=== PATIENT | male | born 1950 | race Caucasian/White ===

== ENCOUNTER 2023-04-30 18:07 | Outpatient (RCR) | payer MEDICARE, SELFPAY | END 2023-05-24 23:59 | disposition home or self-care (01) | LOC: MM 18:07 | PROVIDERS: PCP Internal Medicine; Visit Provider Internal Medicine | DX: Z51.81 Encounter for therapeutic drug level monitoring (principal); Z79.01 Long term (current) use of anticoagulants; I82.402 Acute embolism and thrombosis of unspecified deep veins of left lower extremity ==

== ENCOUNTER 2023-05-30 10:36 | Outpatient (RCR) | payer MEDICARE, SELFPAY | END 2023-06-24 16:54 | disposition home or self-care (01) | LOC: MM 10:36 | PROVIDERS: PCP Internal Medicine; Visit Provider Internal Medicine | DX: Z51.81 Encounter for therapeutic drug level monitoring (principal); Z79.01 Long term (current) use of anticoagulants; I82.402 Acute embolism and thrombosis of unspecified deep veins of left lower extremity | CPT/HCPCS: 85610; G0463 ==

== ENCOUNTER 2023-06-25 09:11 | Outpatient (RCR) | payer MEDICARE, SELFPAY | END 2023-07-25 17:29 | disposition home or self-care (01) | LOC: MM 09:11 | PROVIDERS: PCP Internal Medicine; Visit Provider Internal Medicine | DX: Z51.81 Encounter for therapeutic drug level monitoring (principal); Z79.01 Long term (current) use of anticoagulants; I82.402 Acute embolism and thrombosis of unspecified deep veins of left lower extremity ==

== ENCOUNTER 2023-07-07 20:17 | Emergency (ER) | payer MEDICARE, SELFPAY ==
[2023-07-07 20:20] VITALS: BP 127/99; PULSE 146; RESP 22; TEMP 36.6; O2SAT 92; BMI 37.5
--- NOTE | 2023-07-07 20:47 | ED.MALEGU1 ---
HPI - Male Genitourinary General Chief complaint: Urogenital-Male Stated complaint: URINARY ISSUES Time Seen by Provider: 07/07/23 20:21 Source: patient Mode of arrival: walk-in History of Present Illness HPI Narrative: The patient came to us with a history of urine retention since 9 AM this morning he denies any history of fever chills or any other concerns, he also mentioned that had no history of prostate problem before and he mentioned that he usually have a very weak stream No other complaints Related Data Home Medications Medication Instructions Recorded Confirmed warfarin 5 mg tablet 5 mg PO DAILY 07/07/23 07/07/23 Previous Rx's Medication Instructions Recorded tamsulosin 0.4 mg capsule (Flomax) 0.4 mg PO DAILY #20 caps 07/07/23 Allergies Allergy/AdvReac Type Severity Reaction Status Date / Time No Known Drug Allergies Allergy Verified 07/07/23 20:20 Review of Systems ROS Status of ROS 10 or more systems reviewed and unremarkable except as noted in history and below Exam Narrative Exam Narrative: Nurses notes and vital signs reviewed and patient is not hypoxic. General: Well-appearing and in no apparent distress. Skin: Warm, dry, no pallor noted. No rash. Head: Normocephalic, atraumatic. Neck: Supple, non-tender. Eye: Pupils are equal, round and EOMI. No scleral icterus. Ears, Nose, Mouth, and Throat: TM are clear, no nasal mucosal hypertrophy. Oral mucosa is moist, no posterior oropharynx erythema, uvula is mid-line Cardiovascular: Regular Rate and Rhythm without murmur, gallop or rub. Respiratory: No accessory muscle use or respiratory distress. Lungs are clear to auscultation, no wheezing, rales or rhonchi Chest Wall: no tenderness Back: No midline thoracic or lumbar vertebral tenderness. No CVA tenderness Musculoskeletal: normal ROM, no calf or popliteal tenderness, no lower extremity edema/swelling GI: Abdomen is soft, non-distended. Normal bowel sounds. No masses appreciated. No tenderness to palpation. No rebound, guarding, or rigidity noted. Neurological: A&O x4. No cranial nerve dysfunction observed. No truncal ataxia. Moves all extremities. Sensation intact. Psychiatric: Cooperative and interactive. Normal mood and affect. Constitutional Vital Signs, click to edit/add: Last Vital Signs Temp 97.9 F 07/07/23 20:20 Pulse 146 H 07/07/23 20:20 Resp 22 07/07/23 20:20 BP 127/99 H 07/07/23 20:20 Pulse Ox 92 L 07/07/23 20:20 O2 Del Method Room Air 07/07/23 20:20 Course Vital Signs Vital signs: Vital Signs Temperature 97.9 F 07/07/23 20:20 Pulse Rate 146 H 07/07/23 20:20 Respiratory Rate 22 07/07/23 20:20 Blood Pressure 127/99 H 07/07/23 20:20 Pulse Oximetry 92 L 07/07/23 20:20 Oxygen Delivery Method Room Air 07/07/23 20:20 Temperature 97.9 F 07/07/23 20:20 Pulse Rate 146 H 07/07/23 20:20 Respiratory Rate 07/07/23 20:20 Blood Pressure 127/99 H 07/07/23 20:20 Pulse Oximetry 92 L 07/07/23 20:20 Oxygen Delivery Method Room Air 07/07/23 20:20 MDM - Male Genitourinary MDM Narrative Medical decision making narrative: Upon presentation the patient was distressed because of urine retention but after putting a Singer catheter he almost had 1400 cc of urine out there and did not show any signs of infection His tachycardia resolved his heart rate was 108 after his Singer catheter was placed The patient blood work-up did show some acute kidney injury that is mild he was instructed about the importance of follow-up with urology within the week he also was discharged home with a Singer catheter in addition to instruction to come back in case of any fever chills or any abdominal pain There was no urine infection but the patient was started on Flomax he was instructed about the importance of follow-up with urology The patient is to follow up with primary care physician in next 2-3 days or to return to the emergency department should any of the signs or symptoms worsen or new symptoms develop. The patient agrees with the following Diagnosis and Treatment plan and the patient will be discharged home. Lab Data Labs: Lab Results 07/07/23 07/07/23 Range/Units 20:36 20:45 WBC 11.9 H (4.0-11.0) 10^3/uL RBC 5.72 (4.70-6.10) 10^6/uL Hgb 14.9 (14.0-18.0) g/dL Hct 48.0 (42.0-54.0) % MCV 83.9 (80.0-94.0) fL MCH 26.0 (25.9-34.0) pg MCHC 31.0 (29.9-35.2) g/dL RDW 15.6 H (11.0-15.0) % Plt Count 284 (150-450) 10^3/uL MPV 9.6 (9.5-13.5) fL Neut % (Auto) 85.4 H (43.0-75.0) % Lymph % (Auto) 7.7 L (20.5-60.0) % [place] % (Auto) 5.7 (1.7-12.0) % Eos % (Auto) 0.3 L (0.9-7.0) % Baso % (Auto) 0.5 (0.2-2.0) % Neut # (Auto) 10.2 H (1.4-6.5) 10^3/uL Lymph # (Auto) 0.9 L (1.2-3.8) 10^3/uL [place] # (Auto) 0.7 (0.3-0.8) 10^3/uL Eos # (Auto) 0.0 (0.0-0.7) 10^3/uL Baso # (Auto) 0.1 (0.0-0.1) 10^3/uL Abs Immat Gran (auto) 0.05 H (0.00-0.03) 10^3/uL Imm/Tot Granulo (auto) 0.4 (0.0-0.5) % Sodium 132 L (136-145) mmol/L Potassium 3.7 (3.5-5.1) mmol/L Chloride 99 (98-107) mmol/L Carbon Dioxide 24.1 (21.0-32.0) mmol/L Anion Gap 12.6 BUN 20.0 H (7.0-18.0) mg/dL Creatinine 1.36 H (0.70-1.30) mg/dL Est GFR ( Amer) >60 (>=60) Est GFR (Non-Af Amer) 52 L (>=60) BUN/Creatinine Ratio 14.7 Glucose 201 H (74-106) mg/dL Calcium 9.0 (8.5-10.1) mg/dL Total Bilirubin 0.4 (0.2-1.0) mg/dL AST 17 (15-37) U/L ALT 19 (16-63) U/L Alkaline Phosphatase 99 (46-116) U/L Total Protein 7.5 (6.4-8.2) g/dL Albumin 3.4 (3.4-5.0) g/dL Globulin 4.1 g/dL Albumin/Globulin Ratio 0.8 Urine Color Lt. yellow (YELLOW) Urine Clarity Clear (CLEAR) Urine pH 6.0 (5.0-9.0) Ur Specific [place] 1.020 (1.005-1.025) Urine Protein 30 A (NEG/TRACE) mg/dL Urine Glucose (UA) Negative (NEGATIVE) mg/dL Urine Ketones Negative (NEGATIVE) mg/dL Urine Occult Blood Moderate A (NEGATIVE) Urine Nitrite Negative (NEGATIVE) Urine Bilirubin Negative (NEGATIVE) Urine Urobilinogen 0.2 (0.2-1.0) EU/dL Ur Leukocyte Esterase Negative (NEGATIVE) Urine RBC 20-50 A (0-2) #/HPF Urine WBC 0-2 A (NONE SEEN) #/HPF Ur Squamous Epith Cells Rare (NONE/RARE) #/LPF Urine Crystals None seen (None Seen) #/HPF Urine Bacteria None seen (NONE SEEN) #/HPF Urine Casts None seen (NONE SEEN) #/LPF Urine Mucus None seen (NONE SEEN) Ur Culture Indicated? No Discharge Plan Discharge Chief Complaint: Urogenital-Male Clinical Impression: Benign prostatic hyperplasia, Acute retention of urine Patient Disposition: Home, Self-Care Time of Disposition Decision: 21:51 Prescriptions / Home Meds: New tamsulosin [Flomax] 0.4 mg capsule 0.4 mg PO DAILY Qty: 20 0RF No Action warfarin 5 mg tablet 5 mg PO DAILY Instructions: Urinary Retention in Men (ED), Enlarged Prostate (BPH) (ED), How to Change a Catheter Drainage Bag (DC) Stand Alone Forms: Portal Instructions Referrals: Physician,Non-Staff, [Primary Care Provider] - 1 week Shahab Patton MD [Physician] - 1 week Discharge Date/Time: 07/07/23 22:33
[2023-07-07 21:07] LABS: Basophils Absolute Auto 0.1 10^3/uL (0.0-0.1); Basophils Percent Auto 0.5 % (0.2-2.0); Eosinophils Percent Auto 0.3 % (0.9-7.0); Hemoglobin 14.9 g/dL (14.0-18.0); Immature Granulocytes Abs Auto 0.05 10^3/uL (0.00-0.03); Immature Granulocytes Pct Auto 0.4 % (0.0-0.5); Lymphocytes Absolute Auto 0.9 10^3/uL (1.2-3.8); Lymphocytes Percent Auto 7.7 % (20.5-60.0); Mean Corpuscular Volume 83.9 fL (80.0-94.0); Mean Platelet Volume 9.6 fL (9.5-13.5); Monocytes Absolute Auto 0.7 10^3/uL (0.3-0.8); Monocytes Percent Auto 5.7 % (1.7-12.0); Neutrophils Absolute Auto 10.2 10^3/uL (1.4-6.5); Neutrophils Percent Auto 85.4 % (43.0-75.0); Platelet Count 284 10^3/uL (150-450); Red Blood Count 5.72 10^6/uL (4.70-6.10); Red Cell Distribution Width 15.6 % (11.0-15.0); White Blood Count 11.9 10^3/uL (4.0-11.0)
[2023-07-07 21:08] LABS: Bilirubin Urine NEGATIVE (NEGATIVE); Blood Urine MODERATE (NEGATIVE); Clarity Urine CLEAR (CLEAR); Color Urine LT. YELLOW (YELLOW); Glucose Urine UA NEGATIVE (NEGATIVE); Ketones Urine NEGATIVE (NEGATIVE); Leukocyte Esterase Urine NEGATIVE (NEGATIVE); Nitrite Urine NEGATIVE (NEGATIVE); Protein Urine 30 mg/dL (NEG/TRACE); Urobilinogen Urine 0.2 EU/dL (0.2-1.0)
[2023-07-07 21:12] LABS: Urine Microscopic Indicated YES
[2023-07-07 21:15] LABS: Bacteria Urine NONE SEEN #/HPF (NONE SEEN); Cast Seen? NONE SEEN #/LPF (NONE SEEN); Crystals Seen? None Seen #/HPF (None Seen); Mucus Urine NONE SEEN (NONE SEEN); RBC Urine 20-50 #/HPF (0-2); Squamous Epithelial Cell Urine RARE #/LPF (NONE/RARE); Urine Culture Indicated NO; WBC Urine 0-2 #/HPF (NONE SEEN)
[2023-07-07 21:22] LABS: Alanine Aminotransferase 19 U/L (16-63); Albumin Globulin Ratio 0.8; Albumin Level 3.4 g/dL (3.4-5.0); Alkaline Phosphatase 99 U/L (46-116); Anion Gap 12.6; Aspartate Amino Transferase 17 U/L (15-37); BUN Creatinine Ratio 14.7; Bilirubin Total 0.4 mg/dL (0.2-1.0); Carbon Dioxide 24.1 mmol/L (21.0-32.0); Chloride 99 mmol/L (98-107); Estimated GFR (African America >60 (>=60); Estimated GFR (Non-African Ame 52 (>=60); Globulin 4.1 g/dL; Glucose 201 mg/dL (74-106); Potassium 3.7 mmol/L (3.5-5.1); Sodium 132 mmol/L (136-145); Total Protein 7.5 g/dL (6.4-8.2)
== END 2023-07-07 22:33 | disposition home or self-care (01) ==
PROVIDERS: Emergency Provider Emergency Medicine
DX: N40.1 Benign prostatic hyperplasia with lower urinary tract symptoms (principal); R33.8 Other retention of urine; Z79.01 Long term (current) use of anticoagulants
CPT/HCPCS: 36415; 80053; 81001; 85025; 99284

== ENCOUNTER 2023-07-26 10:13 | Outpatient (RCR) | payer MEDICARE, SELFPAY | END 2023-08-23 16:46 | disposition home or self-care (01) | LOC: MM 10:13 | PROVIDERS: Visit Provider Internal Medicine | DX: Z51.81 Encounter for therapeutic drug level monitoring (principal); Z79.01 Long term (current) use of anticoagulants; I82.402 Acute embolism and thrombosis of unspecified deep veins of left lower extremity | CPT/HCPCS: 85610; G0463 ==

== ENCOUNTER 2023-08-08 11:47 | Outpatient (OUT) | payer MEDICARE, SELFPAY ==
[2023-08-08 12:54] LABS: Prostate Specific Antigen Scrn 4.96 ng/mL (<=4.00)
== END 2023-08-08 11:48 | disposition home or self-care (01) ==
LOC: LAB 11:49
PROVIDERS: PCP Family Medicine; Visit Provider Urology
DX: Z12.5 Encounter for screening for malignant neoplasm of prostate (principal)
CPT/HCPCS: 36415; G0103

== ENCOUNTER 2023-08-26 02:34 | Outpatient (RCR) | payer MEDICARE, SELFPAY | END 2023-09-24 17:39 | disposition home or self-care (01) | LOC: MM 02:34 | PROVIDERS: PCP Family Medicine; Visit Provider Internal Medicine | DX: Z51.81 Encounter for therapeutic drug level monitoring (principal); Z79.01 Long term (current) use of anticoagulants; I82.402 Acute embolism and thrombosis of unspecified deep veins of left lower extremity | CPT/HCPCS: 85610; G0463 ==

== ENCOUNTER 2023-09-25 00:44 | Outpatient (RCR) | payer MEDICARE, SELFPAY | END 2023-10-24 16:48 | disposition home or self-care (01) | LOC: MM 00:44 | PROVIDERS: PCP Family Medicine; Visit Provider Internal Medicine | DX: Z51.81 Encounter for therapeutic drug level monitoring (principal); Z79.01 Long term (current) use of anticoagulants; I82.402 Acute embolism and thrombosis of unspecified deep veins of left lower extremity | CPT/HCPCS: 85610; G0463 ==

== ENCOUNTER 2023-11-21 13:26 | Outpatient (OUT) | payer MEDICARE, SELFPAY ==
--- OUTSIDE RECORDS SUMMARY | 2023-11-21 13:31 | XMS_ITS | CCD ---
Author Name Unknown Address [address] [facility] [address] [place] [id number] Organization [facility] Care Team Providers Care Tobacco Flavorer Name Role Phone REQUEST, DR NONE LISTED Primary Care Unavaila ble FAWWAD, JALLOH H Attending Unavailable FAWWAD, JALLOH H Admitting Unavailable FAWWAD, JALLOH H Attending Unavailable REQUEST, NONE LISTED Primary Care Unavaila ble FAWWAD, JALLOH H Admitting Unavailable FAWWAD, JALLOH H Attending Unavailable REQUEST, NONE LISTED Primary Care Unavaila ble FAWWAD, JALLOH H Admitting Unavailable FAWWAD, JALLOH H Attending Unavailable REQUEST, NONE LISTED Primary Care Unavaila ble FAWWAD, JALLOH H Admitting Unavailable FAWWAD, JALLOH H Attending Unavailable REQUEST, NONE LISTED Primary Care Unavaila ble FAWWAD, JALLOH H Admitting Unavailable FAWWAD, JALLOH H Attending Unavailable REQUEST, NONE LISTED Primary Care Unavaila ble FAWWAD, JALLOH H Admitting Unavailable FAWWAD, JALLOH H Attending Unavailable REQUEST, NONE LISTED Primary Care Unavaila ble FAWWAD, JALLOH H Admitting Unavailable FAWWAD, JALLOH H Attending Unavailable REQUEST, NONE LISTED Primary Care Unavaila ble FAWWAD, JALLOH H Admitting Unavailable FAWWAD, JALLOH H Admitting Unavailable REQUEST, NONE LISTED Primary Care Unavaila ble FAWWAD, JALLOH H Attending Unavailable REQUEST, NONE LISTED Primary Care Unavaila ble FAWWAD, JALLOH H Attending Unavailable FAWWAD, JALLOH H Admitting Unavailable REQUEST, NONE LISTED Primary Care Unavaila ble FAWWAD, JALLOH H Attending Unavailable FAWWAD, JALLOH H Admitting Unavailable Cortez Degroot Primary Care Physician [phone] Beth Joseph Unavailable Cortez Degroot Attending Unavailable JENN, Shahab Carrasquillo Attending Unavailable JENN, Shahab Carrasquillo Attending Unavailable JENN, Shahab Carrasquillo Attending Unavailable ESPERANZA LIVE Attending Unavailable JENN, Shahab Carrasquillo Attending Unavailable JENN, Shahab Carrasquillo Attending Unavailable JENN, Shahab Carrasquillo Attending Unavailable JENN, Shahab Carrasquillo Attending Unavailable JENN, Shahab Carrasquillo Admitting Unavailable JENN, Shahab Carrasquillo Referring Unavailable Medications Current Medications Medication Drug Class(es) Dates Sig (Normalized) Sig (Original) cephalexin 500 mg oral capsule (2 sources) Cephalosporin Antibacterial Start: 08-12-2023 take 1 capsule by mouth every eight hours Cephalexin 500 MG 1 capsule Orally tid for 7 days Jul, Active Start: 04-27-2016 take 1 capsule by mo [facility] twice daily Keflex 500 MG 1 capsule Orally Twice a day for 10 day(s) Apr, Not-Taking methylPREDNISolone 4 mg oral tablet (2 sources) Corticosteroid Start: 04-27-2016 Medrol 4 MG as directed Orally As Directed for 6 days Jul, Active oxybutynin chloride 5 mg oral tablet (1 source) Cholinergic Muscarinic Antagonist Start: 10-08-2023 oxybutynin 5 mg Tab See Instructions, PRN for urinary discomfort, 1 tab po q 6 hrs PRN bladder spasms/leaking around hinton, up to TID, # 30 tab(s), Refills(s) 3, Pharmacy: [facility]/pharmacy #[id number], 180, cm, 10/08/23 12:12:00 EST, Height/Length Dosing, 123, kg, 10/08/23 12:12:00 EST, Weight Dosing Start Date: 10/08/23 Status: Ordered tamsulosin hydrochloride 0.4 mg oral capsule (4 sources) alpha-Adrenergic Karina Start: 08-05-2023 End: 07-30-2024 take 1 capsule by mouth twice daily tamsulosin 0.4 mg Cap 0.4 mg = 1 cap(s), Oral, BID, X 30 day(s), # 60 cap(s), Refills(s) 11, Pharmacy: [facility]/pharmacy #[id number], 180, cm, 08/05/23 12:26:00 EDT, Height/Length Dosing, 123, kg, 08/05/23 12:26:00 EDT, Weight Dosing Start Date: 08/05/23 Stop Date: 07/30/24 Status: Ordered triamcinolone acetonide 0.001 mg/mg topical ointment (1 source) Corticosteroid Start: 08-12-2023 Triamcinolone Acetonide 0.1 % 1 application Externally Twice a day apply to rash on arms until rash is gone Jul, Active warfarin sodium 5 mg oral tablet (4 sources) Vitamin K Antagonist Start: 08-05-2023 warfarin 5 mg, Oral, Every other day, alternate 2.5 mg with 5 mg tab, Refills(s) 0 Start Date: 08/05/23 Status: Ordered Start: 08-05-2023 warfarin Oral, Daily, Refills(s) 0 Start Date: 08/05/23 Status: Ordered take 1 tablet by kaushal th once daily Warfarin Sodium 5 MG TAKE 1 TABLET DAILY OR DIRECTED BY MEDICATION MANAGEMENT CL[facility]IC Oral for 90 Days Active Completed/Discontinued Medications Medication Drug Class(es) Dates Sig (Normalized) Sig (Original) ciprofloxacin 500 mg oral tablet (2 sources) Quinolone Antimicrobial Start: 08-05-2023 take 1 tablet by mouth once daily Cipro 500 mg Tab 500 mg = 1 tab(s), Oral, Daily, take one tab day before procedure and one tab after procedure, # 2 tab(s), Refills(s) 0, Pharmacy: [facility]/pharmacy #[id number], 180, cm, 08/05/23 12:26:00 EDT, Height/Length Dosing, 123, kg, 08/05/23 12:26:00 EDT, Weight Dosing Start Date: 08/05/23 Status: Ordered Glucosamine Chondroitin Joint (1 source) Glucosamine Chondroitin Joint Not-Taking hydrOXYzine hydrochloride 25 mg oral tablet (1 source) Antihistamine Start: 04-27-2016 take 1 tablet by mouth every eight hours hydrOXYzine HCl 25 MG 1 tablet as needed Orally every 8 hrs for 10 days Apr, Not-Taking Problems Problem Classification Problem Date Documented Da te Episodic/Chronic Allergic reactions (1 source) Unspecified contact dermatitis, unspecified cause Episodic Genitourinary symptoms and ill-defined conditions (5 sources) Retention of urine; 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: [Retention of urine, unspecified] Onset: 08-05-2023 Episodic Hyperplasia of prostate (2 sources) Benign prostatic hypertrophy with outflow obstruction; 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: [Benign prostatic hyperplasia with lower urinary tract symptoms] Onset: 10-08-2023 Chronic Other aftercare (5 sources) Encounter for therapeutic drug level monitoring; 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: [ENC THERAPEUTC DRUG LEVL MONITORING] Onset: 03-23-2023 Episodic Other aftercare (1 source) 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; 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] Onset: 04-24-2023 Episodic Other aftercare (2 sources) Long-term current use of anticoagulant; 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: [senior living (current) use of anticoagulants] Onset: 08-05-2023 Episodic Other diseases of bladder and urethra (1 source) Disorder of bladder; 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: [Other specified disorders of bladder] Onset: 10-08-2023 Chronic Other screening for suspected conditions (not mental disorders or infectious disease) (1 source) Encounter for screening for malignant neoplasm of prostate; 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: [Screening for malignant neoplasm done] Onset: 08-05-2023 Episodic Phlebitis; thrombophlebitis and thromboembolism (5 sources) Acute embolism and thrombosis of unspecified deep veins of left lower extremity; 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: [AC EMBO THROMB UNS DP VNS LT LW EXT] Onset: 02-25-2023 Episodic Screening and history of mental health and substance abuse codes (4 sources) H/O: Disorder; 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: [Personal history of nicotine dependence] Onset: 08-05-2023 Episodic Skin and subcutaneous tissue infections (1 source) Cellulitis of right upper limb Episodic Unclassified (3 sources) Drug therapy finding 08-05-2023 Unclassified (3 sources) Patient encounter status 08-05-2023 Results Test Name Value Interpretation Reference Range Facility Ambulatory Visit Summaryon 1 01-06-2023 Ambulatory Visit Summary EUGENIA WOODSON :1950 Visit Date:11/05/2023 Ambulatory Visit Instructions Your Care Team Attending Physician - Shahab PATTON MD Primary Care Physician - Cortez Degroot MD This Is Your Medications List oxybutynin (oxybutynin 5 mg Tab) tamsulosin (tamsulosin 0.4 mg Cap) warfarin What to do next Scheduled Follow-Up Appointments 2023 1:15 PM EST With: Cortez Degroot MD Where: [facility] [place] Invalid Interpretation Code [address] [place] [address] [place] [address]- \.br\ Saturday 2:15 PM EST \.br\ With: Shahab PATTON MD\.br\ Where: [facility] Consultation Noteon 10-23-20 Consultation Note [id number] 1#1.00TIFF [facility] Consent for Procedure/Surger yon 10-22-2023 Consent for Procedure/Surgery [id number] #1.00TIFF [facility] Ambulatory Visit Summaryon 12-08-2022 Ambulatory Visit Summary EUGENIA WOODSON :1950 Visit Date:10/08/2023 Ambulatory Visit Instructions Your Diagnosis Urinary retention BPH with urinary obstruction Anticoagulated Your Care Team Attending Physician - ESPERANZA LIVE PA-C Primary Care Physician - Cortez Degroot MD. This Is Your Medications List ciprofloxacin (Cipro 500 mg Tab) tamsulosin (tamsulosin 0.4 mg Cap) Contact prescribing physician if questions or concerns warfarin Discharge Vitals Height 180 cm Height 71 in Weight 123 kg Weight 270.6 lb BMI 37.96 What to do next Scheduled Follow-Up Appointments Saturday 11:00 AM EST With: Shahab PATTON MD Where: [facility] Patient Educationon 10-08-20 Patient Education Urology Transurethral Resection of the Prostate Transurethral resection of the prostate (TURP) is the removal, or resection, of part of the prostate tissue. This procedure is done to treat an enlarged prostate gland (benign prostatic hyperplasia). The goal of TURP is to remove enough prostate tissue to allow for a normal flow of urine. The procedure will allow you to empty your bladder more completely when you urinate so that you can urinate less often. In a transurethral resection, a thin telescope with a light, a camera, and an electric cutting edge (resectoscope) is passed through the urethra and into the prostate. The opening of the urethra is at the end of the penis. Tell a health care provider about: ? Any allergies you have. ? All medicines you are taking, including vitamins, herbs, eye drops, creams, and bhor-wki-cvvcaky medicines. ? Any problems you or family members have had with anesthetic medicines. ? Any bleeding problems you have. ? Any surgeries you have had. ? Any medical conditions you have. ? Any prostate infections you have had. What are the risks? Generally, this is a safe procedure. However, problems may occur, including: ? Infection. ? Bleeding. ? Allergic reactions to medicines. ? Blood in the urine (hematuria). ? Damage to nearby structures or organs. Other problems may occur, but they are rare. They include: ? Dry ejaculation, or having no semen come out during orgasm. ? Erectile dysfunction, or being unable to have or keep an erection. ? Scarring that leads to narrowing of the urethra. This narrowing may block the flow of urine. ? Inability to control when you urinate (incontinence). ? Deep vein thrombosis. This is a blood clot that can develop in your leg. ? TURP syndrome. This can happen when you lose too much sodium during or after the procedure. Some signs and symptoms of this condition include: ? Weakness. ? Headaches. ? Nausea or vomiting. ? Muscle cramping. What happens before the procedure? When to stop eating and drinking Follow instructions from your health care provider about what you may eat and drink before your procedure. These may include: ? 8 hours before your procedure ? Stop eating most foods. Do not eat meat, fried foods, or fatty foods. ? Eat only light foods, such as toast or crackers. ? All liquids are okay except energy drinks and alcohol. ? 6 hours before your procedure ? Stop eating. ? Drink only clear liquids, such as water, clear fruit juice, black coffee, plain tea, and sports drinks. ? Do not drink energy drinks or alcohol. ? 2 hours before your procedure ? Stop drinking all liquids. ? You may be allowed to take medicines with small sips of water. If you do not follow your health care provider's instructions, your procedure may be delayed or canceled. Medicines Ask your health care provider about: ? Changing or stopping your regular medicines. This is especially important if you are taking diabetes medicines or blood thinners. ? Taking medicines such as aspirin and ibuprofen. These medicines can thin your blood. Do not take these medicines unless your health care provider tells you to take them. ? Taking ardn-xuz-avequso medicines, vitamins, herbs, and supplements. Surgery safety Ask your health care provider what steps will be taken to help prevent infection. These steps may include: ? Removing hair at the surgery site. ? Washing skin with a germ-killing soap. ? Taking antibiotic medicine. General instructions ? Do not use any products that contain nicotine or tobacco for at least 4 weeks before the procedure. These products include cigarettes, chewing tobacco, and vaping devices, such as e-cigarettes. If you need help quitting, ask your health care provider. ? If you will be going home right after the procedure, plan to have a responsible adult: ? Take you home from the hospital or clinic. You will not be allowed to drive. ? Care for you for the time you are told. What happens during the procedure? ? An IV will be inserted into one of your veins. ? You will be given one or more of the following: ? A medicine to help you relax (sedative). ? A medicine to make you fall asleep (general anesthetic). ? A medicine that is injected into your spine to numb the area below and slightly above the injection site (spinal anesthetic). ? Your legs will be placed in foot rests (stirrups) so that your legs are apart and your knees are bent. ? The resectoscope will be passed through your urethra to your prostate. ? Parts of your prostate will be resected using the cutting edge of the resectoscope. ? Fluid will be passed to rinse out the cut tissues (irrigation). ? The resectoscope will be removed. ? A small, thin tube (catheter) will be passed through your urethra and into your bladder. The catheter will drain urine into a bag outside of your body. The procedure may vary among health care (more content not included)... Normal [facility] Urology Office/Clinic Noteon 10-08-2023 Urology Office/Clinic Note Chief Complaint Hinton change HPI Staff 72 year old male here for Hinton change 18Fr. Previous DX: urinary retention, anticoagulated and former smoker. S/P Cysto done 09/03/23. Pre was to think about having TURP and get back with the office. Pt. states he would like to have the TURP done. Pt. states having bleeding around catheter and also leaking around his catheter. Hinton was removed and Pt. started to have some bleeding. Catheter was placed without difficulty. Catheter was irrigated. Pt. stated to have bladder spasms. Urine was clear while irrigating. Pt. is taking Warfarin. History of Present Illness staff HPI reviewed and agree. Review of Systems PHQ Score Initial Depression Screen Score: 0 SCORE no fever, chills, malaise, myalgia. no rash/lesions. no chest pain, palpitations, or SOB. no abdominal pain, nausea, vomiting. no unilateral calf swelling, redness, pain Physical Exam Vitals & Measurements HT: 71 in HT: 180 cm WT: 123 kg WT: 270.6 lb BMI: 37.96 General: nontoxic, NAD Mouth: moist mucosa Lungs: normal respiratory effort Cardio: regular rate, good distal perfusion Abdomen: nondistended, no suprapubic distention or tenderness, no CVA tenderness Neurologic: Grossly normal Skin: No rashes or suspicious lesions Assessment/Plan PRW pt 1. Bladder spasms (N32.89: Other specified disorders of bladder) Pt reports bleeding and leaking around catheter. C/o of bladder spasms. Often can alleviate it with position change, but sometimes it doesn't work. Worried about it happening when he's out of house/upcoming holidays. Discussed risks/benefits of anticholinergic. We will start PRN oxybutynin 5mg. Side effects discussed. Will need stopped prior to void trial in future post-TURP. 2. Urinary retention (R33.9: Retention of urine, unspecified) Pt presented to [facility] ER 07/07/23 for retention. Pt was placed with a Hinton catheter and had 1400cc outlet. Pt was given Tamsulosin 0.4mg. States he was having trouble with urination prior to his ER visit. C/o weak stream and incomplete emptying for many months. S/p cysto 09/03/23 Bladder is abnormal, trabeculated (3), catheter cystitis noted. No true b.t. are noted. 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 UDS shows pt is obstructed urodynamically and endoscopically along w/ the fact that pt has severe bladder damage. -18Fr catheter was placed at that time Catheter was changed IO today. Catheter was irrigated, a few small clots came out. Ordered: E&M of Est. Patient Moderate 30-39 Min 45864 3. BPH with urinary obstruction (N40.1: Benign prostatic hyperplasia with lower urinary tract symptoms) S/p cysto 09/03/23 prostatic urethra is obstructed, median lobe. -Candidate for a TURP TURP extensively discussed in office today along with risk/benefit. Pt wishes to proceed. -See #1 -Schedule TURP w/ PRW The procedural risks, benefits, details, and treatment alternatives have been discussed with the patient. These include bleeding, infection, need for blood transfusion, continued urinary difficulties, urinary leakage which could be permanent, need for catheter, retrograde ejaculation, scar tissue formation in the urinary channel or area of prostate shaving, erection problems, blood clot formation in the lower extremities which could travel to the lungs, among others. A secondary operation could also be required. Full informed consent has been obtained. Will order General anesthesia. Ordered: E&M of Est. Patient Moderate 30-39 Min 98481 4. Anticoagulated (Z79.01: senior living (current) use of anticoagulants) Warfarin Ordered: E&M of Est. Patient Moderate 30-39 Min 31322 Orders: oxybutynin, See Instructions, PRN for urinary discomfort, 1 tab po q 6 hrs PRN bladder spasms/leaking around hinton, up to TID, # 30 tab(s), Refills(s) 3, Pharmacy: [facility]/pharmacy #[id number], 180, cm, 10/08/23 12:12:00 EST, Height/Length Dosing, 123, kg, 10/08/23 12:12:0... Follow-up With When Contact Information JENN GUERIN, Shahab Carrasquillo, URL [address] [place] [address]- Additional Instructions: Schedule TURP Patient Education Transurethral Resection of the Prostate Documentation recorded by the scribanton Moon accurately reflects the services(s) I performed and decisions made by me. Authenticated by Esperanza Live PA-C on 10/08/2023 12:42:53. I, Naz Moon, personally scribed for Esperanza Live PA-C on 10/08/2023 12:33:45. . Problem List/Past Medical History Ongoing Anticoagulated BPH with urinary obstruction Former smoker Prostate cancer screening Urinary retention Historical No qualifying data Medications Cipro 500 mg Tab, 500 mg= 1 tab(s), Oral, Daily tamsulosin 0.4 mg Cap, 0.4 mg= 1 cap(s), Oral, BID, 11 refills warfarin, 5 mg, Oral, Every other day Allergies No Known Allergies Social History Tobacco Former s (more content not included)... Normal [facility] Comment on above: Result Comment: Elec tronically Signed By: ESPERANZA LIVE PA-C\.br\Date and Time Signed: 10/08/23 12:43 EST\.br\Electronically Co-Signed By: Naz Moon\.br\Date and Time Co-Signed: 10/08/23 12:34 EST Patient Educationon 09-12-20 23 Patient Education Urology Transurethral Resection of the Prostate Transurethral resection of the prostate (TURP) is the removal, or resection, of part of the prostate tissue. This procedure is done to treat an enlarged prostate gland (benign prostatic hyperplasia). The goal of TURP is to remove enough prostate tissue to allow for a normal flow of urine. The procedure will allow you to empty your bladder more completely when you urinate so that you can urinate less often. In a transurethral resection, a thin telescope with a light, a camera, and an electric cutting edge (resectoscope) is passed through the urethra and into the prostate. The opening of the urethra is at the end of the penis. Tell a health care provider about: ? Any allergies you have. ? All medicines you are taking, including vitamins, herbs, eye drops, creams, and ujyr-bhi-nevtvsv medicines. ? Any problems you or family members have had with anesthetic medicines. ? Any bleeding problems you have. ? Any surgeries you have had. ? Any medical conditions you have. ? Any prostate infections you have had. What are the risks? Generally, this is a safe procedure. However, problems may occur, including: ? Infection. ? Bleeding. ? Allergic reactions to medicines. ? Blood in the urine (hematuria). ? Damage to nearby structures or organs. Other problems may occur, but they are rare. They include: ? Dry ejaculation, or having no semen come out during orgasm. ? Erectile dysfunction, or being unable to have or keep an erection. ? Scarring that leads to narrowing of the urethra. This narrowing may block the flow of urine. ? Inability to control when you urinate (incontinence). ? Deep vein thrombosis. This is a blood clot that can develop in your leg. ? TURP syndrome. This can happen when you lose too much sodium during or after the procedure. Some signs and symptoms of this condition include: ? Weakness. ? Headaches. ? Nausea or vomiting. ? Muscle cramping. What happens before the procedure? When to stop eating and drinking Follow instructions from your health care provider about what you may eat and drink before your procedure. These may include: ? 8 hours before your procedure ? Stop eating most foods. Do not eat meat, fried foods, or fatty foods. ? Eat only light foods, such as toast or crackers. ? All liquids are okay except energy drinks and alcohol. ? 6 hours before your procedure ? Stop eating. ? Drink only clear liquids, such as water, clear fruit juice, black coffee, plain tea, and sports drinks. ? Do not drink energy drinks or alcohol. ? 2 hours before your procedure ? Stop drinking all liquids. ? You may be allowed to take medicines with small sips of water. If you do not follow your health care provider's instructions, your procedure may be delayed or canceled. Medicines Ask your health care provider about: ? Changing or stopping your regular medicines. This is especially important if you are taking diabetes medicines or blood thinners. ? Taking medicines such as aspirin and ibuprofen. These medicines can thin your blood. Do not take these medicines unless your health care provider tells you to take them. ? Taking keki-vzh-iwjrblt medicines, vitamins, herbs, and supplements. Surgery safety Ask your health care provider what steps will be taken to help prevent infection. These steps may include: ? Removing hair at the surgery site. ? Washing skin with a germ-killing soap. ? Taking antibiotic medicine. General instructions ? Do not use any products that contain nicotine or tobacco for at least 4 weeks before the procedure. These products include cigarettes, chewing tobacco, and vaping devices, such as e-cigarettes. If you need help quitting, ask your health care provider. ? If you will be going home right after the procedure, plan to have a responsible adult: ? Take you home from the hospital or clinic. You will not be allowed to drive. ? Care for you for the time you are told. What happens during the procedure? ? An IV will be inserted into one of your veins. ? You will be given one or more of the following: ? A medicine to help you relax (sedative). ? A medicine to make you fall asleep (general anesthetic). ? A medicine that is injected into your spine to numb the area below and slightly above the injection site (spinal anesthetic). ? Your legs will be placed in foot rests (stirrups) so that your legs are apart and your knees are bent. ? The resectoscope will be passed through your urethra to your prostate. ? Parts of your prostate will be resected using the cutting edge of the resectoscope. ? Fluid will be passed to rinse out the cut tissues (irrigation). ? The resectoscope will be removed. ? A small, thin tube (catheter) will be passed through your urethra and into your bladder. The catheter will drain urine into a bag outside of your body. The procedure may vary among health care (more content not included)... Normal [facility] Consent for Procedure/Surger yon 09-03-2023 Consent for Procedure/Surgery [id number] #1.00TIFF [facility] Consent for Treatmenton 08-25 Consent for Treatment [id number] #1.00TIFF [facility] IntraOperative Documentson 1 IntraOperative Documents [id number] #1.00TIFF [facility] IntraOperative Documents [id number] #1.00TIFF [facility] Main OR Intraoperative Recor don 09-03-2023 Main OR Intraoperative Record IntraOp Document Type FTURO Summary Primary Physician: JENN GUERIN, Shahab Carrasquillo Finalized Date/Time: 09/03/23 16:31:34 Pt. Name: EUGENIA WOODSON /Sex: 1950 Male Med Rec #: [id number] Physician: Shahab PATTON MD Financial #: [id number] Pt. Type: O Room/Bed: / Admit/Disch: 09/03/23 14:52:15 - Institution: Case Times FTURO Entry 1 Patient Times In Room 09/03/23 16:12:00 Out Room 09/03/23 16:31:00 Procedure Times Start 09/03/23 16:17:00 Stop 09/03/23 16:24:00 Anesthesia Times Last Modified By: Faiza Figueroa RN 09/03/23 16:31:29 General Comments: 18F COUDE CATH PLACED. LIVE MARION Case Attendance FTURO Entry 1 Entry 2 Entry 3 Case Attendee Shahab PATTON MD ASSEMBLER [employer]ICONDUCTOR, Faiza Figueroa RN, Faiza Cruz Role Performed Surgeon - Primary Scrub - Primary Softball Coach - Primary Time In 09/03/23 16:12:00 09/03/23 16:12:00 09/03/23 16:12:00 Time Out 09/03/23 16:31:00 09/03/23 16:31:00 09/03/23 16:31:00 Procedure CYSTOSCOPY LOCAL(.) CYSTOSCOPY LOCAL(.) CYSTOSCOPY LOCAL(.) Comments Last Modified By: Faiza Figueroa RN, RN, Faiza Buitrago RN 09/03/23 16:31:30 09/03/23 16:31:30 09/03/23 16:31:30 Surgical Procedures FTURO Entry 1 Procedure Description Procedure CYSTOSCOPY LOCAL Modifiers . Surgeon Description CYSTOSCOPY LOCAL Primary Procedure Yes Primary Surgeon Shahab PATTON MD Start 09/03/23 16:17:00 Stop 09/03/23 16:24:00 Anesthesia Type Local Surgical Service Urology Wound Class 2 - Clean-Contaminated Last Modified By: Faiza Figueroa RN 09/03/23 16:24:17 General Case Data FTURO Pre-Care Text: Classifies surgical wound, implements aseptic technique, initiates traffic control Entry 1 Case Information OR URO 1 FT Case Level None Wound Class 2 - Clean-Contaminated Specialty Urology Preop Diagnosis BPH WITH OBSTRUCTION Postop Same As Preop Yes AND INCOMPLETE EMPTYING Postop Diagnosis BPH WITH OBSTRUCTION Outcomes Met? Yes AND INCOMPLETE EMPTYING Last Modified By: Faiza Figueroa RN 09/03/23 16:09:20 Post-Care Text: The patient is free from signs and symptoms of infection EU IntraOp - FTURO Pre-Care Text: Implements protective measures prior to operative or invasive procedure, confirms identity before the operative or invasive procedure, verifies operative procedure, surgical site, and laterality Entry 1 EU Perioperative Protocols Procedure(s) CYSTOSCOPY LOCAL(.) Patient Identity Birthday, ID Band Verified (select at Check, Patient least 2): Participation Consents / H and P HandP, Surgery/Procedure Operative Site N/A Verified Consent Marking Verified Surgical Site Yes Laterality Verified Yes Verified Procedure Verified Yes Correct Patient Yes Position Verified Availability Equipment, Medication Time Out JENN GUERIN, Shahab Carrasquillo, Verified (If Participants Faiza Hemphill CST Applicable) Carolina Perez RN, Kimberly Y Time Out Complete 09/03/23 16:13:00 Allergies Reviewed? Yes Allergies Reviewed Self/Patient With Body Position Supine Prep Area PENIS Prep Agents Betadine Solution Skin. Condition Dry, Warm, Unable to Description UNABLE TO VISUALIZE DUE Visualize TO PATIENT PARTIALLY CLOTHED Additional None Specimens Collected Vitals - EU Blood Pressure 144/84 Pulse 92 bpm Respirations 20 br/min SPO2 95 % EBL 0 IandO - EU Total Intake 0 Total Output 0 Outcomes Met? Yes Last Modified By: Faiza Figueroa RN 09/03/23 16:15:01 Post-Care Text: The patient is free from signs and symptoms of injury caused by extraneous objects Sign Out FTURO Entry 1 Before Patient Leaves OR Nurse verbally Yes Nurse verbally Yes confirms with the confirms with the team the name of team that the procedure(s) instrument, sponge, recorded and needle counts are correct (or N/A) Nurse verbally n/a Nurse verbally Yes confirms with the confirms with the team how the team whether there specimen is labeled are any equipment (including patient problems to be name), if applicable addressed Sign Out Complete 09/03/23 16:24:00 Last Modified By: Faiza Figueroa RN 09/03/23 16:24:14 Case Comments Finalized By: Faiza Figueroa RN Document Signatures Signed By: Faiza Figueroa RN 09/03/23 16:[address] [facility] Main OR Preoperative Recordo n 09-03-2023 Main OR Preoperative Record Holding Area Document Type FTURO Summary Primary Physician: Shahab PATTON MD Finalized Date/Time: 09/03/23 16:08:42 Pt. Name: EUGENIA WOODSON /Sex: 1950 Male Med Rec #: [id number] Physician: Shahab PATTON MD Financial #: [id number] Pt. Type: O Room/Bed: / Admit/Disch: 09/03/23 14:52:15 - Institution: Case Times Holding FTURO Pre-Care Text: Verifies consent for planned procedure, identifies individual values and wishes concerning care, includes family members in perioperative teaching Secures patient's records' belongings, and valuables, maintains patient's dignity and privacy, and maintains patient confidentiality Entry 1 In Holding 09/03/23 15:58:00 Outcomes Met? Yes Last Modified By: Ruby Flores LPN 09/03/23 15:58:50 Post-Care Text: The patient participates in decisions affecting his or her perioperative plan of care The patient's right to privacy is maintained Surgery Checklist FTURO Entry 1 Patient Birthday, ID Band Procedure Surgical Consent, With Identification: Check, Patient Verification: Patient Participation NPO after Midnight: n/a Date/Time: 09/03/23 15:58:00 Personal Items: Glasses Personal Items glasses Comment: Limitations: short of breath with Complaints of Pain: Yes exertion Pain Comment: pain in left knee Skin Integrity Intact, [place], Warm, & Dry Vitals - EU Blood Pressure 144/84 Pulse 92 bpm Respirations 20 br/min SPO2 95 % RN Reviewed Yes Last Modified By: Faiza Figueroa RN 09/03/23 16:08:41 General Comments: Temp 97.3 Finalized By: Faiza Figueroa RN Document Signatures Signed By: Ruby Flores LPN 09/03/23 16:02 Faiza Figueroa RN 09/03/23 16:[address] [facility] Operative Reporton Operative Report Patient: EUGENIA WOODSON Age: 72 years Sex: Male : 1950 Associated Diagnoses: None Author: Shahab PATTON MD Procedure Operative Information Details: Date/ Time: 09/03/2023 16:33:00. 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 Post-Op Dx: Same. Anesthesia Type: Local. Procedure: Local Cystoscopy. Complications: None. Risks/Benefits/Infor med Consent: Surgical risks, benefits, details of the procedure have been explained to the patient, Full informed consent has been obtained. Intraoperative Information Prepped: Patient is brought back to the endoscopy suite, Patient is placed in supine position, Patient prepped in the usual fashion with Betadine solution, 2% Xylocaine Jelly is placed per Urethra, After waiting several minutes the Cystoscope is introduced. The Urethra is: Normal. The Prostatic Urethra is: Obstructed, Median Lobe. The Bladder is: Abnormal, Trabeculated (Severe (3), Catheter cystitis is noted. No true bladder tumors are noted. Severe bladder damage in the form of high-grade trabeculation and open diverticuli diffusely.). The ureteral orifices: Show efflux of clear urine. Devices Implanted: None. Removal: Cystoscope is removed, The patient tolerated it well. Postoperative Information Discharge: Patient is discharged home with antibiotic coverage, Follow up arranged. We discussed that he is obstructed urodynamically and endoscopically along with the fact that he has severe bladder damage. I offered a TURP. He wishes to think about it for now. We replaced an 18 [place] Hinton catheter. He will get that changed in a month. He will call us if he is interested in going forward with a TURP.. Normal [facility] Comment on above: Result Comment: Elec tronically Signed By: Shahab PATTON MD\.br\Date and Time Signed: 09/03/23 16:35 EDT Patient Educationon 09-03-[address] [facility] Ambulatory Visit Summaryon 0 08-12-2023 Ambulatory Visit Summary EUGENIA WOODSON :1950 Visit Date:08/12/2023 Ambulatory Visit Instructions Your Care Team Attending Physician - JENN GUERIN, Shahab Carrasquillo Primary Care Physician - Cortez Degroot MD This Is Your Medications List ciprofloxacin (Cipro 500 mg Tab) tamsulosin (tamsulosin 0.4 mg Cap) warfarin What to do next Scheduled Follow-Up Appointments Saturday 8:15 AM EDT Where: [facility] Saturday 3:00 PM EDT Where: [facility] Saturday 3:45 PM EDT Where: [facility] Saturday 1:00 PM EST Where: [facility] Lab Reportson 08-12-2023 Lab Reports [id number] #1.00CD:127 [facility] Lab Reportson 08-07-2023 Lab Reports [id number] #1.00CD:127 [facility] ED Note-Physicianon 08-06-20 ED Note-Physician [id number] #1.00CD:127 [facility] Formson 08-06-2023 Forms [id number]# 1.00CD:127 [facility] Ambulatory Visit Summaryon 0 08-05-2023 Ambulatory Visit Summary EUGENIA WOODSON :1950 Visit Date:08/05/2023 Ambulatory Visit Instructions Your Diagnosis Urinary retention Prostate cancer screening Anticoagulated Tests Performed Urnls Dip Stick Auto w/o Microscopy POC 09448 Your Care Team Attending Physician - JENN GUERIN, Shahab Carrasquillo Primary Care Physician - Cortez Degroot MD This Is Your Medications List tamsulosin (tamsulosin 0.4 mg Cap) Contact prescribing physician if questions or concerns warfarin Discharge Vitals Temperature (Temporal Artery) 36.4 ?C Heart Rate (Peripheral) 88 Blood Pressure 132/88 Height 180 cm Height 71 in Weight 123 kg Weight 270.6 lb BMI 37.96 What to do next You Need to Schedule the Following Appointments Follow Up with JENN GUERIN, ALYSSA Nicholas When: Where: [facility] [address], [place] [id number] [phone] Medications What How Much When Instructions Unchanged tamsulosin (tamsulosin 0.4 mg Cap) 1 Capsules By Mouth Every day Unchanged warfarin By Mouth Every day Contact prescribing physician if questions or concerns Test Results Urnls Dip Stick Auto w/o Microscopy POC [id number] (08/05/2023) Bilirubin Urine Dipstick - Negative Blood Urine Dipstick - 2+ Moderate Glucose Urine Dipstick - Negative Ketones Urine Dipstick - Negative Leukocytes Urine Dipstick - 1+ Small Nitrite Urine Dipstick - Negative Protein Urine Dipstick - 3+ (300 mg/dl) Specific [place] Urine Dipstick - 1.025 Urine Appearance Urine Dipstick - Clear Urine Color Urine Dipstick - Yellow Urobilinogen Urine Dipstick - Normal 0.2-1 EU/dl pH Urine Dipstick - 7 Allergies No Known Allergies Problems Ongoing - Any problem that you are currently receiving treatment for. Anticoagulated Prostate cancer screening Urinary retention Normal [facility] Patient Educationon 08-05-20 Patient Education Urology Urodynamic Testing Urodynamic tests are done to determine how well your lower urinary tract is working. The lower urinary tract includes your bladder and the part of your body that drains urine from the bladder (urethra). When your kidneys filter your blood, urine is stored in your bladder until you feel the urge to urinate. Urination requires coordination between the nerves and muscles of your bladder and urethra. When your lower urinary tract is working well, you should be able to: ? Start urinating when your bladder is full. ? Empty your bladder completely. ? Control the flow of your urine. Why do I need urodynamic testing? You may need urodynamic testing to help find the cause of any of these problems: ? Leaking urine (incontinence). ? Problems starting or stopping your urine flow. ? Frequent or painful urination. ? Frequent urinary tract infections. ? Being unable to empty your bladder completely. ? Having strong urges to pass urine (urgency). ? Having a weak flow of urine. What are the risks? Generally, these tests are safe. However, some of the tests have risks, including: ? Discomfort. ? Frequent urge to urinate. ? Bleeding. ? Infection. ? Allergic reactions to medicines or dyes (contrast material). What happens before the test? ? Ask your health care provider about changing or stopping your regular medicines. This is especially important if you are taking diabetes medicines or blood thinners. ? You may be asked to avoid urinating before coming to the test so that you arrive with a full bladder. ? Tell a health care provider about: ? Any allergies you have. ? All medicines you are taking, including vitamins, herbs, eye drops, creams, and xogh-jmz-[id number] medicines. ? Whether you are or may be . What happens during the test? You may have various urodynamic tests. The tests may be done separately or may all be done during one visit. You may be given an antibiotic medicine before or after testing to help prevent infection. The types of tests that may be done include: Uroflowmetry This test measures how much urine you pass and how long it takes to pass. ? You will urinate into a certain type of toilet or device (flowmeter). ? The device will measure the volume and the time of your urine flow. ? These measurements will be sent to a computer that creates a graph of your urine flow. Postvoid residual measurement This test measures how much urine is left in your bladder after you urinate. ? The test may be done with ultrasound. In this method, sound waves and a computer will be used to create an image of your bladder. ? The test can also be done by inserting a thin, flexible tube (catheter) into your bladder after you urinate. The remaining urine will be removed through the catheter so it can be measured. ? Remaining urine will be measured in milliliters (mL). If you have more than 100 mL left in your bladder after you urinate, your bladder is not emptying as it should. Cystometric testing This test uses a type of bladder catheter that can measure pressure. ? You may be given a medicine to numb the area (local anesthetic). ? The area around the opening of your urethra will be cleaned. ? A urinary catheter will be passed through your urethra into your bladder and used to empty your bladder completely. ? A measuring catheter will be placed, and your bladder will be filled with warm, germ-free (sterile) water. ? Pressure measurements will be taken: ? As your bladder fills. ? When you feel the need to urinate. ? As your bladder is emptied. ? You may be asked to cough or bear down to check for leakage. ? In some cases, your bladder may be filled with a material that shows up on X-rays (contrast material) so that X-ray pictures can be taken during the test. Electromyogram This test measures the electrical activity of the nerves and muscles of your bladder and the opening of your urethra. ? Sticky patches (electrodes) will be placed near your rectum and urethra to measure electrical activity. ? The measurements will show how well your nerves are communicating with your muscles. What can I expect after the test? ? You should be able to go home right away and do your usual activities. ? You may be told to drink a glass of water every 30 minutes for the first 2 hours after testing. ? Taking a warm bath or using warm, wet cloths (warm compresses) may relieve any discomfort near your urethra. What do the results mean? Talk with your health care provider about what your results mean. Some common causes for abnormal results from urodynamic tests include: ? Enlarged prostate in men. ? Overactive bladder. ? Urinary tract infection. ? Nervous system diseases. ? Spinal cord damage. Questions to ask your health care provider Ask your health care provider, or the department that is doing the test: ? When will my results be (more content not included)... Normal 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 BUN 07/07/23 - 20.0 Crea. 07/07/23 - 1.36 * Pt has a cath* Has had the cath a month ago. A couple week ago he saw blood in his cath tube. Burning once in awhile History of Present Illness Tests reviewed: reviewed UA, ER notes I have reviewed the previous health record information and history for this patient from external providers_. I have reviewed and verified the staff HPI to be accurate for this encounter. There have been no associated fever, chills, flank pain, or blood in the urine. Denies any urinary infections since last encounter. Review of Systems PHQ Score Initial Depression Screen Score: 0 ROS - Provider Constitutional: denies weight loss, denies hot flashes. Eyes: denies eye problems. Gastrointestinal: denies nausea, denies vomiting. Cardiovascular: denies chest pain or angina. Integumentary: no dryness Musculoskeletal: denies musculoskeletal symptoms. ENMT: denies otolaryngeal symptoms. Respiratory: no shortness of breath. Heme/Lymph: denies easy bleeding tendency, denies easy bruising tendency. Psychiatric: no confusion, no anxiety. Genitourinary: See HPI. Physical Exam Vitals & Measurements T: 36.4 ?C(Temporal Artery) HR: 88(Peripheral) BP: 132/88 HT: 71 in HT: 180 cm WT: 123 kg WT: 270.6 lb BMI: 37.96 General Appearance: alert, no distress, well nourished, well developed male. Head: normocephalic . Eyes: normal orbit and globe. ENMT: normal examination of external ears. Chest: Lungs CTA, respirations non labored. Cardiovascular: regular rate and rhythm. Abdomen: soft, non distended, no tenderness, no mass or organomegaly, no hernia. Genitourinary: normal scrotum, normal testes, normal urethra, normal epididymis, normal vas deferens/spermatic cord. Flank Pain: none. Bladder: nonpalpable. Penis: normal shaft, normal glans. Lymph Nodes: unremarkable palpation of the cervical area. Skin: warm, dry, no bruising. Psychiatric: cooperative, affect appropriate for age, normal judgement, euthymic mood. Assessment/Plan New pt here for ER f/u. Pt states his PCP is Dr. Degroot. 1. Urinary retention (R33.9: Retention of urine, unspecified) He has had a weak stream and incomplete emptying for many months. Pt prestent to [facility] ER 07/07/23 for retention. Pt was placed with a Hinton catheter and had 1400cc outlet. Pt was given Tamsulosin 0.4mg. States he was having trouble with urination prior to his ER visit. Pt still has catheter in place and will reevaluate removal after Cysto/UDS. Will schedule cysto and urodynamics. The risks and benefits for cystoscopy and urodynamics have been discussed. The risks include bleeding, infection, and irritation of the bladder and urinary channel, among others. The patient, after being informed of procedural details and after questions have been answered, wishes to proceed. Full informed consent has been obtained. Will order Local anesthesia. 2. Prostate cancer screening (Z12.5: Encounter for screening for malignant neoplasm of prostate) Pt does not recall ever getting his PSA checked. Will order one now. 3. Anticoagulated (Z79.01: senior living (current) use of anticoagulants) On Warfarin. 4. Former smoker (Z87.891: Personal history of nicotine dependence) Increased risk for urothelial cancer. Follow-up With When Contact Information JENN GUERIN, Shahab Carrasquillo, URL [facility] [address], [place] [phone]- [phone] Additional Instructions: sched Cysto/UDS PSA Patient Education Urodynamic Testing Cystoscopy Acute Urinary Retention, Male I, Elizabeth Greenberg, personally scribed for Dr. Patton on 08/05/2023 13:15:27. . Documentation recorded by the scribeElizabeth, accurately reflects the services(s) I performed and decisions made by me. Authenticated by Dr. Patton on 08/05/2023 13:19:12. Problem List/Past Medical History Ongoing Anticoagulated Former smoker Prostate cancer screening Urinary retention Historical No qualifying data Medications tamsulosin 0.4 mg Cap, 0.4 mg= 1 cap(s), Oral, Daily warfarin, Oral, Daily Allergies No Known Allergies Immunizations Vaccine Date Status SARS-CoV-2 (COVID-19) [id number] 12/13/2022 Recorded SARS-CoV-2 (COVID-19) mRNA BNT-162b2 vax 10/30/2021 Recorded SARS-CoV-2 (COVID-19) mRNA BNT-162b2 vax 02/14/2021 Recorded SARS-CoV-2 (COVID-19) mRNA BNT-162b2 vax 01/23/2021 Recorded Lab Results Ambulatory Point of Care Results Bilirubin Urine Dipstick: Negative (08/05/23 12:18:00) Blood Urine Dipstick: 2+ Moderate (08/05/23 12:18:00) Glucose Urine Dipstick: Negative (08/05/23 12:18:00) Ketones Urine Dipstick: Negative (08/05/23 12:18:00) L (more content not included)... Normal [facility] Comment on above: Result Comment: Elec tronically Signed By: Andra Jamil\Date and Time Signed: 08/05/23 13:29 EDT Vital Signs Date Time Vital Sign Value Performing Clinician Facility 08-12-2023 13:50-0400 Body height 180.34 cm Beth Opal Other [facility] Other 08-12-2023 13:50-0400 Body mass index (BMI) [Ratio] 45.07 kg/m2 Beth Opal Other [facility] Other 08-12-2023 13:50-0400 Body temperature 96.6 [degF] Beth Opal Other [facility] Other 08-12-2023 13:50-0400 Body weight 146.6 kg Beth Opal Other [facility] Other 08-12-2023 13:50-0400 Diastolic blood pressure 82 mm[Hg] Beth Opal Other [facility] Other 08-12-2023 13:50-0400 Respiratory rate 18 /min Beth Opal Other [facility] Other 08-12-2023 13:50-0400 SaO2% (BldA) [Mass fraction] 97 % Beth Opal Other [facility] Other 08-12-2023 13:50-0400 Systolic blood pressure 142 mm[Hg] Beth Joseph Other [facility] Other 08-05-2023 12:21-0400 Blood Pressure Location Shahab PATTON [facility] 08-05-2023 12:21-0400 Body temperature 97.52 [degF] Shahabmaty PATTON [facility] 08-05-2023 12:21-0400 Diastolic blood pressure 88 mm[Hg] Shahab JENN [facility] 08-05-2023 12:21-0400 Heart rate 88 /min Shahabmaty PATTON [facility] 08-05-2023 12:21-0400 Systolic blood pressure 132 mm[Hg] Shahabmaty PATTON [facility] Encounters Encounter Date Encounter Type Care Provider Facility Start: 12-30-2023 ambulatory Shahab PATTON Facili ty:[facility] Start: 12-09-2023 ambulatory Shahab PATTON Facili ty:[facility] Start: 12-05-2023 ambulatory Shahab PATTON Facili ty:[facility] [place] [facility] Start: 11-28-2023 ambulatory Cortez Degroot Facility :[facility] Start: 11-05-2023 End: 11-06-2023 ambulatory Shahab PATTON [facility] Start: 10-08-2023 End: 10-09-2023 ambulatory ESPERANZA LIVE Facility: [place] Start: 10-08-2023 End: 10-08-2023 Patient encounter procedure ESPERANZA LIVE [facility] Start: 09-03-2023 End: 09-04-2023 ambulatory Shahab PATTON Facility:[facility] Start: 08-12-2023 End: 08-13-2023 ambulatory Shahab PATTON [facility] Other Start: 08-12-2023 Office outpatient ne w 10 minutes Beth Joseph [facility] Start: 08-12-2023 End: 08-12-2023 Patient encounter procedure Shahab PATTON [facility] Start: 08-05-2023 End: 08-06-2023 ambulatory Shahab PATTON Facility:[facility] Start: 08-05-2023 End: 08-05-2023 Patient encounter procedure Shahab PATTON [facility] Start: 07-11-2023 ambulatory Cortez Degroot Facility:[facility] Start: 03-25-2023 End: 04-24-[address] NONE LISTED REQUEST Facility:[facility] Start: 02-25-2023 End: 03-22-[address] NONE LISTED REQUEST Facility:[facility] Start: 01-23-2023 End: 02-22-[address] NONE LISTED REQUEST Facility:[facility] Start: 12-26-2022 End: 01-23-2023 ambulatory JALLOH [facility] [facility] Facility:[facility] Start: 11-26-2022 End: 12-26-2022 ambulatory JALLOH H [facility] Facility:[facility] Start: 10-25-2022 End: 11-25-2022 ambulatory JALLOH H [facility] Facility:[facility] Start: 09-25-2022 End: 10-24-2022 ambulatory JALLOH H [facility] Facility:[facility] Start: 08-27-2022 End: 09-24-2022 ambulatory JALLOH H [facility] Facility:[facility] Start: 07-26-2022 End: 08-25-2022 ambulatory JALLOH H [facility] Facility:[facility] Start: 06-25-2022 End: 07-25-2022 ambulatory JALLOH H [facility] Facility:[facility] Start: 05-25-2022 End: 06-22-2022 ambulatory SHAIKH Chris [facility] Facility:[facility]1 Immunizations Immunization Date Immunization Notes Care Provider Noris vazquezjeramie 12-13-2022 SARS-CoV-2 (COVID-19 ) [id number] Shahab PATTON [facility] 10-30-2021 SARS-CoV-2 (COVID-19 ) mRNA BNT-162b2 vax Shahabmaty PATTON [facility] 02-14-2021 SARS-CoV-2 (COVID-19 ) mRNA BNT-162b2 vax Shahab PATTON [facility] 01-23-2021 SARS-CoV-2 (COVID-19 ) mRNA BNT-162b2 vax Shahabmaty PATTON [facility] Payers Date Payer Category Payer Unknown [id number] 1957 Unknown [id number] 1952 Unknown [id number] 2.16.84 0.1.047419.3.579.2.593 1952 Unknown [id number] 2.16.84 0.1.506872.3.579.2.593 1952 Unknown [id number] 2.16.84 0.1.729144.3.579.2.593 1952 Unknown [id number] 2.16.84 0.1.312051.3.579.2.593 1952 Unknown [id number] 2.16.84 0.1.596310.3.579.2.593 1952 Unknown [id number] 2.16.84 0.1.337245.3.579.2.593 1952 Unknown [id number] 2.16.84 0.1.952302.3.579.2.593 1952 Unknown [id number] 2.16.84 0.1.258710.3.579.2.593 1952 Unknown [id number] 2.16.84 0.1.470444.3.579.2.593 1952 Unknown [id number] 2.16.84 0.1.553721.3.579.2.593 1952 Unknown [id number] 2.16.84 0.1.208419.3.579.2.593 1952 Unknown [id number] 2.16.8 40.1.814185.3.579.2.727 1952 Unknown [id number] 2.16.8 40.1.914205.3.579.2.727 1952 Unknown [id number] 2.16.8 40.1.415628.3.579.2.727 1952 Unknown [id number] 2.16.8 40.1.034625.3.579.2.727 1952 Unknown [id number] 2.16.8 40.1.156960.3.579.2.727 1952 Unknown [id number] 2.16.8 40.1.377292.3.579.2.727 1952 Unknown [id number] 2.16.8 40.1.603045.3.579.2.727 1952 Unknown [id number] 2.16.8 40.1.314298.3.579.2.727 Social History Date Type Detail Facility Tobacco smoking status [facility] Sex Assigned At [facility] Start: 10-08-2023 Tobacco smoking status Ex-smoker (fi nding) [facility] Functional Status Date Assessment Result Facility 10-08-2023 Functional Status N/A [facility] 08-05-2023 Functional Status N/A [facility] Clinical Notes 08-05-2023 to 10-08-2023 Note Date & Type Note Facility 10-08-2023 Hospital Discharg e instructions Patient Education 10/08/2023 12:33:31 Transurethral Resection of the Prostate Transurethral Resection of the Prostate Transurethral resection of the prostate (TURP) is the removal, or resection, of part of the prostate tissue. This procedure is done to treat an enlarged prostate gland (benign prostatic hyperplasia). The goal of TURP is to remove enough prostate tissue to allow for a normal flow of urine. The procedure will allow you to empty your bladder more completely when you urinate so that you can urinate less often. In a transurethral resection, a thin telescope with a light, a camera, and an electric cutting edge (resectoscope) is passed through the urethra and into the prostate. The opening of the urethra is at the end of the penis. Tell a health care provider about: Any allergies you have. All medicines you are taking, including vitamins, herbs, eye drops, creams, and xesf-lns-hgtcafa medicines. Any problems you or family members have had with anesthetic medicines. Any bleeding problems you have. Any surgeries you have had. Any medical conditions you have. Any prostate infections you have had. What are the risks? Generally, this is a safe procedure. However, problems may occur, including: Infection. Bleeding. Allergic reactions to medicines. Blood in the urine (hematuria). Damage to nearby structures or organs. Other problems may occur, but they are rare. They include: Dry ejaculation, or having no semen come out during orgasm. Erectile dysfunction, or being unable to have or keep an erection. Scarring that leads to narrowing of the urethra. This narrowing may block the flow of urine. Inability to control when you urinate (incontinence). Deep vein thrombosis. This is a blood clot that can develop in your leg. TURP syndrome. This can happen when you lose too much sodium during or after the procedure. Some signs and symptoms of this condition include: ?Weakness. ?Headaches. ?Nausea or vomiting. ?Muscle cramping. What happens before the procedure? When to stop eating and drinking Follow instructions from your health care provider about what you may eat and drink before your procedure. These may include: 8 hours before your procedure ?Stop eating most foods. Do not eat meat, fried foods, or fatty foods. ?Eat only light foods, such as toast or crackers. ?All liquids are okay except energy drinks and alcohol. 6 hours before your procedure ?Stop eating. ?Drink only clear liquids, such as water, clear fruit juice, black coffee, plain tea, and sports drinks. ?Do not drink energy drinks or alcohol. 2 hours before your procedure ?Stop drinking all liquids. ?You may be allowed to take medicines with small sips of water. If you do not follow your health care provider's instructions, your procedure may be delayed or canceled. Medicines Ask your health care provider about: Changing or stopping your regular medicines. This is especially important if you are taking diabetes medicines or blood thinners. Taking medicines such as aspirin and ibuprofen. These medicines can thin your blood. Do not take these medicines unless your health care provider tells you to take them. Taking krxb-kew-vgunfrt medicines, vitamins, herbs, and supplements. Surgery safety Ask your health care provider what steps will be taken to help prevent infection. These steps may include: Removing hair at the surgery site. Washing skin with a germ-killing soap. Taking antibiotic medicine. General instructions Do not use any products that contain nicotine or tobacco for at least 4 weeks before the procedure. These products include cigarettes, chewing tobacco, and vaping devices, such as e-cigarettes. If you need help quitting, ask your health care provider. If you will be going home right after the procedure, plan to have a responsible adult: ?Take you home from the hospital or clinic. You will not be allowed to drive. ?Care for you for the time you are told. What happens during the procedure? An IV will be inserted into one of your veins. You will be given one or more of the following: ?A medicine to help you relax (sedative). ?A medicine to make you fall asleep (general anesthetic). ?A medicine that is injected into your spine to numb the area below and slightly above the injection site (spinal anesthetic). Your legs will be placed in foot rests (stirrups) so that your legs are apart and your knees are bent. The resectoscope will be passed through your urethra to your prostate. Parts of your prostate will be resected using the cutting edge of the resectoscope. Fluid will be passed to rinse out the cut tissues (irrigation). The resectoscope will be removed. A small, thin tube (catheter) will be passed through your urethra and into your bladder. The catheter will drain urine into a bag outside of your body. The procedure may vary among health care providers and hospitals. What happens after the procedure? Your blood pressure, heart rate, breathing rate, and blood oxygen level will be monitored until you leave the hospital or clinic. You will be given fluids through the IV. The IV will be removed when you start eating and drinking normally. You may have some pain. Pain medicine will be available to help you. You will have a catheter draining your urine. ?You may have blood in your urine. Your catheter may be kept in until your urine is clear. ?Your urinary drainage will be monitored. If necessary, your bladder may be rinsed out (irrigated) through your catheter. You will be encouraged to walk around as soon as possible. You may have to wear compression stockings. These stockings help to prevent blood clots and reduce swelling in your legs. If you were given a sedative during the procedure, it can affect you for several hours. Do not drive or operate machinery until your health care provider says that it is safe. Summary Transurethral resection of the prostate (TURP) is the removal (resection) of part of the prostate tissue. The goal of this procedure is to remove enough prostate tissue to allow for a normal flow of urine. Follow instructions from your health care provider about taking medicines and about eating and drinking before the procedure. This information is not intended to replace advice given to you by your health care provider. Make sure you discuss any questions you have with your health care provider. Document Revised: 08/07/2022 Document Reviewed: 08/07/2022 [employer] Patient Education 2022 [employer] Follow Up Care 08/12/2023 13:22:25 With:JENN GUERIN, Shahab Carrasquillo, URL Address: [address] [place] [address]- When: Unknown [facility] 09-03-2023 Note [id number] [facility] 08-12-2023 Evaluation note Encounter Date Diagnosis Assessment Notes Jul, Contact dermatitis, unspecified contact dermatitis type, unspecified trigger (ICD-10 - L25.9) Drink plenty fluids, get plenty of rest. Continue home medications as prescribed. Take the cephalexin and Medrol Dosepak as prescribed until gone. Use the triamcinolone cream to your right arm as prescribed. Follow-up with your family physician if no improvement in 2 to 3 days Jul, Cellulitis of arm, right (ICD-10 - L03.113) Cellulitis: adult home care material was printed Jul, Other Contact dermatitis home care material was printed [employer] Other 09-11-2023 Hospital Discharge instructions Patient Education 08/05/2023 13:14:43 Urodynamic Testing Urodynamic Testing Urodynamic tests are done to determine how well your lower urinary tract is working. The lower urinary tract includes your bladder and the part of your body that drains urine from the bladder (urethra). When your kidneys filter your blood, urine is stored in your bladder until you feel the urge to urinate. Urination requires coordination between the nerves and muscles of your bladder and urethra. When your lower urinary tract is working well, you should be able to: Start urinating when your bladder is full. Empty your bladder completely. Control the flow of your urine. Why do I need urodynamic testing? You may need urodynamic testing to help find the cause of any of these problems: Leaking urine (incontinence). Problems starting or stopping your urine flow. Frequent or painful urination. Frequent urinary tract infections. Being unable to empty your bladder completely. Having strong urges to pass urine (urgency). Having a weak flow of urine. What are the risks? Generally, these tests are safe. However, some of the tests have risks, including: Discomfort. Frequent urge to urinate. Bleeding. Infection. Allergic reactions to medicines or dyes (contrast material). What happens before the test? Ask your health care provider about changing or stopping your regular medicines. This is especiallyimportant if you are taking diabetes medicines or blood thinners. You may be asked to avoid urinating before coming to the test so that you arrive with a full bladder. Tell a health care provider about: ?Any allergies you have. ?All medicines you are taking, including vitamins, herbs, eye drops, creams, and wnmm-hfz-cyuhvnc medicines. ?Whether you are or may be . What happens during the test? You may have various urodynamic tests. The tests may be done separately or may all be done during one visit. You may be given an antibiotic medicine before or after testing to help prevent infection. The types of tests that may be done include: Uroflowmetry This test measures how much urine you pass and how long it takes to pass. You will urinate into a certain type of toilet or device (flowmeter). The device will measure the volume and the time of your urine flow. These measurements will be sent to a computer that creates a graph of your urine flow. Postvoid residual measurement This test measures how much urine is left in your bladder after you urinate. The test may be done with ultrasound. In this method, sound waves and a computer will be used to create an image of your bladder. The test can also be done by inserting a thin, flexible tube (catheter) into your bladder after youurinate. The remaining urine will be removed through the catheter so it can be measured. Remaining urine will be measured in milliliters (mL). If you have more than 100 mL left in your bladder after you urinate, your bladder is not emptying as it should. Cystometric testing This test uses a type of bladder catheter that can measure pressure. You may be given a medicine to numb the area (local anesthetic). The area around the opening of your urethra will be cleaned. A urinary catheter will be passed through your urethra into your bladder and used to empty your bladder completely. A measuring catheter will be placed, and your bladder will be filled with warm, germ-free (sterile)water. Pressure measurements will be taken: ?As your bladder fills. ?When you feel the need to urinate. ?As your bladder is emptied. You may be asked to cough or bear down to check for leakage. In some cases, your bladder may be filled with a material that shows up on X- rays (contrast material) so that X-ray pictures can be taken during the test. Electromyogram This test measures the electrical activity of the nerves and muscles of your bladder and the opening of your urethra. Sticky patches (electrodes) will be placed near your rectum and urethra to measure electrical activity. The measurements will show how well your nerves are communicating with your muscles. What can I expect after the test? You should be able to go home right away and do your usual activities. You may be told to drink a glass of water every 30 minutes for the first 2 hours after testing. Taking a warm bath or using warm, wet cloths (warm compresses) may relieve any discomfort near yoururethra. What do the results mean? Talk with your health care provider about what your results mean. Some common causes for abnormal results from urodynamic tests include: Enlarged prostate in men. Overactive bladder. Urinary tract infection. Nervous system diseases. Spinal cord damage. Questions to ask your health care provider Ask your health care provider, or the department that is doing the test: When will my results be ready? How will I get my results? What are my treatment options? What other tests do I need? What are my next steps? Contact a health care provider if: You have pain. You have blood in your urine. You have chills. You have a fever. Summary Urodynamic tests are done to determine how well your lower urinary tract is working. The lower urinary tract includes your bladder and urethra. You may need urodynamic testing to help find the cause of various problems with urination, such as leaking urine (incontinence) or problems starting or stopping your urine flow. You may have various urodynamic tests. The tests may be done separately or may all be done during one testing visit. Talk with your health care provider about what your results mean. Contact your health care provider if you have pain, chills, a fever, or blood in your urine. This information is not intended to replace advice given to you by your health care provider. Make sure you discuss any questions you have with your health care provider. Document Revised: 07/25/2022 Document Reviewed: 06/16/2021 [employer] Patient Education 2022 [employer] 08/05/2023 13:14:39 Cystoscopy Cystoscopy Cystoscopy is a procedure that is used to help diagnose and sometimes treat conditions that affect the lower urinary tract. The lower urinary tract includes the bladder and the urethra. The urethra is the tube that drains urine from the bladder. Cystoscopy is done using a thin, tube-shaped instrument with a light and camera at the end (cystoscope). The cystoscope may be hard or flexible, depending on the goal of the procedure. The cystoscope is inserted through the urethra, into the bladder. Cystoscopy may be recommended if you have: Urinary tract infections that keep coming back. Blood in the urine (hematuria). An inability to control when you urinate (urinary incontinence) or an overactive bladder. Unusual cells found in a urine sample. A blockage in the urethra, such as a urinary stone. Painful urination. An abnormality in the bladder found during an intravenous pyelogram (IVP) or CT scan. Cystoscopy may also be done to remove a sample of tissue to be examined under a microscope (biopsy). Tell a health care provider about: Any allergies you have. All medicines you are taking, including vitamins, herbs, eye drops, creams, and hehg-hrm-llwlgnr medicines. Any problems you or family members have had with anesthetic medicines. Any blood disorders you have. Any surgeries you have had. Any medical conditions you have. Whether you are or may be . What are the risks? Generally, this is a safe procedure. However, problems may occur, including: Infection. Bleeding. Allergic reactions to medicines. Damage to other structures or organs. What happens before the procedure? Medicines Ask your health care provider about: Changing or stopping your regular medicines. This is especially important if you are taking diabetes medicines or blood thinners. Taking medicines such as aspirin and ibuprofen. These medicines can thin your blood. Do not take these medicines unless your health care provider tells you to take them. Taking ooln-jgh-kimmlif medicines, vitamins, herbs, and supplements. Tests You may have an exam or testing, such as: X-rays of the bladder, urethra, or kidneys. CT scan of the abdomen or pelvis. Urine tests to check for signs of infection. General instructions Follow instructions from your health care provider about eating or drinking restrictions. Ask your health care provider what steps will be taken to help prevent infection. These steps may include: ?Washing skin with a germ-killing soap. ?Taking antibiotic medicine. Plan to have a responsible adult take you home from the hospital or clinic. What happens during the procedure? You will be given one or more of the following: ?A medicine to help you relax (sedative). ?A medicine to numb the area (local anesthetic). The area around the opening of your urethra will be cleaned. The cystoscope will be passed through your urethra into your bladder. Germ-free (sterile) fluid will flow through the cystoscope to fill your bladder. The fluid will stretch your bladder so that your health care provider can clearly examine your bladder de [place]. Your doctor will look at the urethra and bladder. Your doctor may take a biopsy or remove stones. The cystoscope will be removed, and your bladder will be emptied. The procedure may vary among health care providers and hospitals. What can I expect after the procedure? After the procedure, it is common to have: Some soreness or pain in your abdomen and urethra. Urinary symptoms. These include: ?Mild pain or burning when you urinate. Pain should stop within a few minutes after you urinate. This may last for up to 1 week. ?A small amount of blood in your urine for several days. ?Feeling like you need to urinate but producing only a small amount of urine. Follow these instructions at home: Medicines Take fbkd-rfe-pphqblu and prescription medicines only as told by your health care provider. If you were prescribed an antibiotic medicine, take it as told by your health care provider. Do notstop taking the antibiotic even if you start to feel better. General instructions Return to your normal activities as told by your health care provider. Ask your health care provider what activities are safe for you. If you were given a sedative during the procedure, it can affect you for several hours. Do not drive or operate machinery until your health care provider says that it is safe. Watch for any blood in your urine. If the amount of blood in your urine increases, call your healthcare provider. Follow instructions from your health care provider about eating or drinking restrictions. If a tissue sample was removed for testing (biopsy) during your procedure, it is up to you to get your test results. Ask your health care provider, or the department that is doing the test, when yourresults will be ready. Drink enough fluid to keep your urine pale yellow. Keep all follow-up visits. This is important. Contact a health care provider if: You have pain that gets worse or does not get better with medicine, especially pain when you urinate. You have trouble urinating. You have more blood in your urine. Get help right away if: You have blood clots in your urine. You have abdominal pain. You have a fever or chills. You are unable to urinate. Summary Cystoscopy is a procedure that is used to help diagnose and sometimes treat conditions that affect the lower urinary tract. Cystoscopy is done using a thin, tube-shaped instrument with a light and camera at the end. After the procedure, it is common to have some soreness or pain in your abdomen and urethra. Watch for any blood in your urine. If the amount of blood in your urine increases, call your healthcare provider. If you were prescribed an antibiotic medicine, take it as told by your health care provider. Do notstop taking the antibiotic even if you start to feel better. This information is not intended to replace advice given to you by your health care provider. Make sure you discuss any questions you have with your health care provider. Document Revised: 07/25/2022 Document Reviewed: 06/23/2021 [employer] Patient Education 2022 [employer] 08/05/2023 13:14:16 Acute Urinary Retention, Male Acute Urinary Retention, Male Acute urinary retention is a condition in which a person is unable to pass urine or can only pass alittle urine. This condition can happen suddenly and last for a short time. If left untreated, it can become long-term (chronic) and result in kidney damage or other serious complications. What are the causes? This condition may be caused by: Obstruction or narrowing of the tube that drains the bladder (urethra). This may be caused by surgery, problems with nearby organs, or injury to the bladder or urethra. Problems with the nerves in the bladder. Tumors in the area of the pelvis, bladder, or urethra. Certain medicines. Bladder or urinary tract infection. Constipation. What increases the risk? This condition is more likely to develop in older men. As men age, their prostate may become largerand may start to press or squeeze on the bladder or the urethra. Other chronic health conditions can increase the risk of acute urinary retention. These include: Diseases such as multiple sclerosis. Spinal cord injuries. Diabetes. Degenerative cognitive conditions, such as delirium or dementia. Psychological conditions. A man may hold his urine due to trauma or because he does not want to usethe bathroom. What are the signs or symptoms? Symptoms of this condition include: Trouble urinating. Pain in the lower abdomen. How is this diagnosed? This condition is diagnosed based on a physical exam and your medical history. You may also have other tests, including: An ultrasound of the bladder or kidneys or both. Blood tests. A urine analysis. Additional tests may be needed, such as a CT scan, MRI, and kidney or bladder function tests. How is this treated? Treatment for this condition may include: Medicines. Placing a thin, sterile tube (catheter) into the bladder to drain urine out of the body. This is called an indwelling urinary catheter. After it is inserted, the catheter is held in place with a small balloon that is filled with sterile water. Urine drains from the catheter into a collection bag outside of the body. Behavioral therapy. Treatment for other conditions. If needed, you may be treated in the hospital for kidney function problems or to manage other complications. Follow these instructions at home: Medicines Take yaet-kkx-orohjkc and prescription medicines only as told by your health care provider. Avoid certain medicines, such as decongestants, antihistamines, and some prescription medicines. Do not take any medicine unless your health care provider approves. If you were prescribed an antibiotic medicine, take it as told by your health care provider. Do notstop using the antibiotic even if you start to feel better. General instructions Do not use any products that contain nicotine or tobacco. These products include cigarettes, chewing tobacco, and vaping devices, such as e-cigarettes. If you need help quitting, ask your health careprovider. Drink enough fluid to keep your urine pale yellow. If you have an indwelling urinary catheter, follow the instructions from your health care provider. Monitor any changes in your symptoms. Tell your health care provider about any changes. If instructed, monitor your blood pressure at home. Report changes as told by your health care provider. Keep all follow-up visits. This is important. Contact a health care provider if: You have uncomfortable bladder contractions that you cannot control (spasms). You leak urine with the spasms. Get help right away if: You have chills or a fever. You have blood in your urine. You have a catheter and the following happens: ?Your catheter stops draining urine. ?Your catheter falls out. Summary Acute urinary retention is a condition in which a person is unable to pass urine or can only pass alittle urine. If left untreated, this condition can result in kidney damage or other serious complications. An enlarged prostate may cause this condition. As men age, their prostate gland may become larger and may press or squeeze on the bladder or the urethra. Treatment for this condition may include medicines and placement of an indwelling urinary catheter. Monitor any changes in your symptoms. Tell your health care provider about any changes. This information is not intended to replace advice given to you by your health care provider. Make sure you discuss any questions you have with your health care provider. Document Revised: 08/02/2021 Document Reviewed: 08/02/2021 [employer] Patient Education 2022 [employer]. Follow Up Care 07/11/2023 10:33:42 With:JENN GUERIN, Shahab Carrasquillo, URL Address: [facility] [address], [place] [id number]- [phone] When: Unknown Comments:sched Cysto/UDS [facility] evaluation + Plan note Future Appointments Appointment Date:08/12/2023 01:00:00 PM Scheduled Provider: Location:[facility] Appointment Type:URO Nurse Visit Appointment Date:08/30/2023 08:15:00 AM Scheduled Provider: Location:[facility] Appointment Type:Urology CALL PAT FT Appointment Date:09/03/2023 03:00:00 PM Scheduled Provider: Location:[facility] Appointment Type:Urology FT Appointment Date:09/03/2023 03:45:00 PM Scheduled Provider: Location:[facility] Appointment Type:Urology FT Diagnostic Tests Pending * PSA Screen, Total 08/05/23 [facility] evaluation + Plan note Future Appointments Appointment Date:08/30/2023 08:15:00 AM Scheduled Provider: Location:[facility] Appointment Type:Urology CALL PAT FT Appointment Date:09/03/2023 03:00:00 PM Scheduled Provider: Location:[facility] Appointment Type:Urology FT Appointment Date:09/03/2023 03:45:00 PM Scheduled Provider: Location:[facility] Appointment Type:Urology FT Appointment Date:10/07/2023 01:00:00 PM Scheduled Provider: Location:[facility] Appointment Type[facility] Future Appointments Appointment Date:12/20/2023 11:00:00 AM Scheduled Provider:Shahab PATTON MD Location:[facility] Appointment Type:URO Office Visit [facility] History general Narrative - Reported* Type Description Date Medical History benign prostatic hypertrophy Medical History DVT Surgical History tonsillectomy Surgical History I & D abscess Hospitalization History See Above [employer] Other Hospital course Narrative No data available for this section [facility] Discharge instructions No data available for this section [facility] progress note No data available for this section [facility] Summary Purpose Family History No Family History Records Found No data available for this section No Family History Records Found Advance Directives No Advanced Directives Records FoundNo Advanced Directives Records Found Additional Source Comments (unrecognized sect ion and content) No Status Records FoundNo Status Records Found INFORMATION SOURCE (unrecogn ized section and content) DATE CREATED AUTHOR 05/03/2023 [facility] DATE CREATED AUTHOR AUTHOR'S ORGANIZ ATION 11/07/2023 [facility] Patient Care team informatio n (unrecognized section and content) Personnel Name: Cortez Degroot MD Address: Address: [address] [place] [address] Personnel Name: Cortez Degroot MD Address: Address: [address] [place] [address] Personnel Name: Cortez Degroot MD Address: Address: [address] [place] [address] REASON FOR VISIT (unrecogniz ed section and content) RASH ON BOTH ARMS FOR RECORDS PERTAINING TO PATIENTS WHO ARE OR HAVE BEEN ENROLLED IN A CHEMICAL DEPENDENCY/SUBSTANCEABUSE PROGRAM, SOME INFORMATION MAY BE OMITTED. This clinical summary was aggregated from multiple sources. Caution should be exercised in using it in the provision of clinical care. This summary normalizes information from multiple sources, and as a consequence, information in this document may materially change the coding, format and clinical context of patient data. In addition, data may be omitted in some cases. CLINICAL DECISIONS SHOULD BE BASED ON THE PRIMARY CLINICAL RECORDS. [employer] [facility]. provides no warranty or guarantee of the accuracy or completeness of information in this document.
--- NOTE | 2023-11-21 13:34 | ECG_ITS ---
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
[2023-11-21 14:25] LABS: Basophils Absolute Auto 0.1 10^3/uL (0.0-0.1); Basophils Percent Auto 1.2 % (0.2-2.0); Eosinophils Absolute Auto 0.2 10^3/uL (0.0-0.7); Eosinophils Percent Auto 2.7 % (0.9-7.0); Hemoglobin 13.1 g/dL (14.0-18.0); Immature Granulocytes Abs Auto 0.03 10^3/uL (0.00-0.03); Immature Granulocytes Pct Auto 0.5 % (0.0-0.5); Lymphocytes Absolute Auto 1.1 10^3/uL (1.2-3.8); Lymphocytes Percent Auto 17.2 % (20.5-60.0); Mean Corpuscular HGB Conc 29.8 g/dL (29.9-35.2); Mean Corpuscular Hemoglobin 25.3 pg (25.9-34.0); Mean Corpuscular Volume 84.9 fL (80.0-94.0); Mean Platelet Volume 9.3 fL (9.5-13.5); Monocytes Absolute Auto 0.7 10^3/uL (0.3-0.8); Monocytes Percent Auto 10.7 % (1.7-12.0); Neutrophils Absolute Auto 4.5 10^3/uL (1.4-6.5); Neutrophils Percent Auto 67.7 % (43.0-75.0); Platelet Count 221 10^3/uL (150-450); Red Blood Count 5.18 10^6/uL (4.70-6.10); Red Cell Distribution Width 15.1 % (11.0-15.0); White Blood Count 6.6 10^3/uL (4.0-11.0)
[2023-11-21 14:46] LABS: Anion Gap 12.3; BUN Creatinine Ratio 24.3; Calcium 9.3 mg/dL (8.5-10.1); Carbon Dioxide 26.9 mmol/L (21.0-32.0); Chloride 101 mmol/L (98-107); Estimated GFR (African America >60 (>=60); Estimated GFR (Non-African Ame >60 (>=60); Glucose 125 mg/dL (74-106); Potassium 4.2 mmol/L (3.5-5.1); Sodium 136 mmol/L (136-145)
[2023-11-21 14:55] LABS: Prothrombin Time 16.5 sec (9.0-11.6)
[2023-11-21 15:00] LABS: Partial Thromboplastin Time 40.2 sec (22.3-36.2)
[2023-11-21 15:26] LABS: Prostate Specific Antigen Dx 3.68 ng/mL (<=4.00)
== END 2023-11-21 13:27 | disposition home or self-care (01) ==
LOC: PST 13:28
PROVIDERS: PCP Family Medicine; Visit Provider Urology
DX: Z01.810 Encounter for preprocedural cardiovascular examination (principal); Z01.812 Encounter for preprocedural laboratory examination; N40.1 Benign prostatic hyperplasia with lower urinary tract symptoms; R33.8 Other retention of urine; R97.20 Elevated prostate specific antigen [PSA]
CPT/HCPCS: 80048; 84153; 85025; 85610; 85730; 93005

== ENCOUNTER 2023-11-25 01:15 | Outpatient (RCR) | payer MEDICARE, SELFPAY | END 2023-12-25 17:14 | disposition home or self-care (01) | LOC: MM 01:15 | PROVIDERS: PCP Family Medicine; Visit Provider Internal Medicine | DX: Z51.81 Encounter for therapeutic drug level monitoring (principal); Z79.01 Long term (current) use of anticoagulants | CPT/HCPCS: 85610; G0463 ==

== ENCOUNTER 2023-12-26 01:00 | Outpatient (RCR) | payer MEDICARE, SELFPAY | END 2024-01-23 17:20 | disposition home or self-care (01) | LOC: MM 01:00 | PROVIDERS: PCP Family Medicine; Visit Provider Internal Medicine | DX: Z51.81 Encounter for therapeutic drug level monitoring (principal); Z79.01 Long term (current) use of anticoagulants; I82.402 Acute embolism and thrombosis of unspecified deep veins of left lower extremity | CPT/HCPCS: 85610; G0463 ==

== ENCOUNTER 2024-01-24 03:28 | Outpatient (RCR) | payer MEDICARE, SELFPAY | END 2024-02-21 14:08 | disposition home or self-care (01) | LOC: MM 03:28 | PROVIDERS: PCP Family Medicine; Visit Provider Internal Medicine | DX: Z51.81 Encounter for therapeutic drug level monitoring (principal); Z79.01 Long term (current) use of anticoagulants; I82.409 Acute embolism and thrombosis of unspecified deep veins of unspecified lower extremity | CPT/HCPCS: 85610; G0463 ==

== ENCOUNTER 2024-02-24 03:20 | Outpatient (RCR) | payer MEDICARE, SELFPAY | END 2024-03-24 18:12 | disposition home or self-care (01) | LOC: MM 03:20 | PROVIDERS: PCP Family Medicine; Visit Provider Internal Medicine | DX: Z51.81 Encounter for therapeutic drug level monitoring (principal); Z79.01 Long term (current) use of anticoagulants; I82.402 Acute embolism and thrombosis of unspecified deep veins of left lower extremity ==

== ENCOUNTER 2024-03-25 00:29 | Outpatient (RCR) | payer MEDICARE, SELFPAY | END 2024-04-24 11:29 | disposition home or self-care (01) | LOC: MM 00:29 | PROVIDERS: PCP Family Medicine; Visit Provider Internal Medicine | DX: Z51.81 Encounter for therapeutic drug level monitoring (principal); Z79.01 Long term (current) use of anticoagulants; I82.409 Acute embolism and thrombosis of unspecified deep veins of unspecified lower extremity | CPT/HCPCS: 85610; G0463 ==

== ENCOUNTER 2024-04-27 00:27 | Outpatient (RCR) | payer MEDICARE, SELFPAY | END 2024-05-22 10:06 | disposition home or self-care (01) | LOC: MM 00:27 | PROVIDERS: PCP Family Medicine; Visit Provider Internal Medicine | DX: Z51.81 Encounter for therapeutic drug level monitoring (principal); Z79.01 Long term (current) use of anticoagulants; I82.409 Acute embolism and thrombosis of unspecified deep veins of unspecified lower extremity | CPT/HCPCS: 85610; G0463 ==

== ENCOUNTER 2024-05-25 00:53 | Outpatient (RCR) | payer MEDICARE, SELFPAY | END 2024-06-24 09:47 | disposition home or self-care (01) | LOC: MM 00:53 | PROVIDERS: PCP Family Medicine; Visit Provider Internal Medicine | DX: Z51.81 Encounter for therapeutic drug level monitoring (principal); Z79.01 Long term (current) use of anticoagulants; I82.409 Acute embolism and thrombosis of unspecified deep veins of unspecified lower extremity | CPT/HCPCS: 85610; G0463 ==

== ENCOUNTER 2024-06-18 13:30 | Outpatient (OUT) | payer MEDICARE, SELFPAY ==
--- NOTE | 2024-06-18 13:36 | XR_ITS ---
The [address] [address] Patient Name: EUGENIA WOODSON MRN: [id number] date: 1950 Sex: M Assigned Patient Location: [facility] Current Patient Location: [facility] Accession/Order Number: [id number] Exam Date: 06/18/2024 14:50 Report Date: 06/18/2024 16:13 At the request of: MARIANO BARAJAS Procedure: XR chest 2V EXAMINATION: XR chest 2V HISTORY: Preop exam COMPARISON: No relevant comparison available. TECHNIQUE: PA and lateral FINDINGS: LUNGS: No significant pulmonary parenchymal abnormalities. VASCULATURE: Moderately increased pulmonary vasculature. PLEURA: No pneumothorax, effusion, or pleural thickening. CARDIAC: Moderate cardiomegaly. MEDIASTINUM: No visible mass or adenopathy. BONES: Mild degenerative disc disease and spondylosis without visible acute abnormalities. OTHER: Negative. XR/XR chest 2V IMPRESSION: Moderate cardiomegaly with pulmonary vascular congestion Electronically authenticated by: GT DYSON Date: 06/18/2024 16:13
--- NOTE | 2024-06-18 13:36 | ECG_ITS ---
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
--- OUTSIDE RECORDS SUMMARY | 2024-06-18 13:45 | XMS_ITS | CCD ---
Author Organization [facility] Care Team Providers Care Comparative Sociology Professor Name Role Phone REQUEST, DR NONE LISTED [...] Admitting Unavailable Cortez Degroot Primary Care Physician [phone] Beth Joseph Shahab PATTON R Admitting Unavailable PATTONShahab R Referring Unavailable PATTONShahab R Attending Unavailable Aditya Nino Admitting Unavaila ble Aditya Nino. Referring Unavaila ble ChristAditya castanon Attending Unavaila ble Aditya Nino Admitting Unavaila ble ChristAditya castanon. Referring Unavaila ble Aditya Nino Attending Unavaila MD Jacob Garrido Consulting Unavailable Jacob LOVELL Consulting Unavailable Jacob LOVELL Consulting Unavailable Cortez Degroot Attending Unavailable Shahab PATTON R Attending Unavailable PATTONShahab R Attending Unavailable PATTON, Shahab R Attending Unavailable PATTONShahab R Attending Unavailable Cortez Degroot Attending Unavailable Cortez Degroot Admitting Unavailable Cortez Degroot Referring Unavailable Aditya Nino Consulting Unavaila ble Aditya Nino Consulting Unavaila ble Aditya Nino Consulting Unavaila Paul Conner Admitting Unavailable Paul Barbosa Attending Unavailable NONE, XXXX Referring Unavailable Paul Barbosa Attending Unavailable Cortez Degroot Referring Unavailable Aditya Nino Attending Unavaila ble Cortez Degroot Referring Unavailable Aditya Nino. Attending Unavaila ble Shahab PATTON R Attending Unavailable ESPERANZA LIVE Attending Unavailable Cortez Degroot Attending Unavailable Cortez Degroot. Attending Unavailable Cortez Degroot Attending Unavailable Cortez Degroot Attending Unavailable PATTONShahab R Attending Unavailable PATTONShahab R Attending Unavailable OrRae pryor X Attending Unavailable MARIA TESPERANZA REID Attending Unavailable PATTON, Shahab R Attending Unavailable PATTONShahab R Attending Unavailable MARIA TESPERANZA REID Attending Unavailable Orroya Rae X Attending Unavailable Aditya Nino Admitting Unavaila ble Aditya Nino. Attending Unavaila ble Aditya Nino Referring Unavaila ble Shahab PATTON R Attending Unavailable Cortez Degroot Attending Unavailable Cortez Degroot Attending Unavailable PATTONShahab R Attending Unavailable PATTONShahab R Attending Unavailable LEI Barbosa Attending Unavailable NONE, XXXX Referring Unavailable Medications Current Medications Medication Drug Class(es) Dates Sig (Normalized) Sig (Original) cephalexin 500 mg oral capsule (2 sources) Cephalosporin Antibacterial Start: 08-12-2023 take 1 capsule by mouth every eight hours Cephalexin 500 MG 1 capsule Orally tid for 7 days Jul, Active Start: 04-27-2016 take 1 capsule by [facility] twice daily Keflex 500 MG 1 capsule Orally Twice a day for 10 day(s) Apr, Not-Taking methylPREDNISolone 4 mg oral tablet (2 sources) Corticosteroid Start: 04-27-2016 Medrol 4 MG as directed Orally As Directed for 6 days Jul, Active oxybutynin chloride 5 mg oral tablet (17 sources) Cholinergic Muscarinic Antagonist Start: 04-14-2024 oxybutynin 5 mg Tab See Instructions, PRN for urinary discomfort, 1 tab po q 6 hrs PRN bladder spasms/leaking around [place], up to TID, # 30 tab(s), Refills(s) 3, Pharmacy: [facility]/pharmacy #[id number], 180, cm, 04/14/24 12:37:00 EDT, Height/Length Dosing, 154.3, kg, 04/14/24 12:37:00 EDT, Weight Dosing Start Date: 04/14/24 Status: Ordered Start: 10-08-2023 oxybutynin 5 m g Tab See Instructions, PRN for urinary discomfort, 1 tab po q 6 hrs PRN bladder spasms/leaking around [place], up to TID, # 30 tab(s), Refills(s) 3, Pharmacy: [facility]/pharmacy #[id number], 180, cm, 10/08/23 12:12:00 EST, Height/Length Dosing, 123, kg, 10/08/23 12:12:00 EST, Weight Dosing Start Date: 10/08/23 Status: Ordered tamsulosin hydrochloride 0.4 mg oral capsule (20 sources) alpha-Adrenergic Karina Start: 08-05-2023 End: 07-30-2024 take 1 capsule by mouth twice daily tamsulosin 0.4 mg Cap 0.4 mg = 1 cap(s), Oral, BID, X 30 day(s), # 60 cap(s), Refills(s) 11, Pharmacy: [facility]/pharmacy #[id number], 180, cm, 08/05/23 12:26:00 EDT, Height/Length Dosing, 123, kg, 08/05/23 12:26:00 EDT, Weight Dosing Start Date: 08/05/23 Stop Date: 07/30/24 Status: Ordered triamcinolone acetonide 0.001 mg/mg topical ointment (1 source) Corticosteroid Start: 08-12-2023 Triamcinolone Acetonide 0.1 % 1 application Externally Twice a day apply to rash on arms until rash is gone Jul, Active warfarin sodium 5 mg oral tablet (20 sources) Vitamin K Antagonist Start: 03-03-2024 warfarin 5 mg Tab See Instructions, TAKE 1 TABLET DAILY OR DIRECTED BY [facility], # 90 tab(s), Refills(s) 3, Pharmacy: [id number], 180, cm, 12/30/23 15:09:00 EST, Height/Length Dosing, 155.2, kg, 12/30/23 15:09:00 EST, Weight Dosing Start Date: 03/03/24 Status: Ordered Start: 08-05-2023 warfarin 5 mg, Oral, Every other day, alternate 2.5 mg with 5 mg tab, Refills(s) 0 Start Date: 08/05/23 Status: Ordered Start: 08-05-2023 warfarin Oral, Daily, Refills(s) 0 Start Date: 08/05/23 Status: Ordered take 1 tablet by kaushal once daily Warfarin Sodium 5 MG TAKE [...] procedure, # 2 tab(s), Refills(s) 0, Pharmacy: [facility]/pharmacy #[id number], 180, cm, 08/05/23 12:26:00 EDT, Height/Length [...] source) Unspecified contact dermatitis, unspecified cause Episodic Coronary atherosclerosis and other heart disease (1 source) Coronary atherosclerosis; 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: [Atherosclerotic heart disease of [place] coronary artery without angina pectoris] Onset: 05-20-2024 Chronic Genitourinary symptoms and ill-defined conditions (20 sources) Retention of urine; 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: [Retention of urine, unspecified] Onset: 08-05-2023 Episodic Hyperplasia of prostate (20 sources) Benign prostatic hypertrophy with outflow obstruction; 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: [Benign prostatic hyperplasia with lower urinary tract symptoms] Onset: 10-08-2023 Chronic Other aftercare (5 sources) Encounter for therapeutic drug level monitoring; 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: [ENC THERAPEUTC DRUG LEVL MONITORING] Onset: 03-23-2023 Episodic Other aftercare (1 source) 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; 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: [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] Onset: 04-24-2023 Episodic Other aftercare (4 sources) Long-term current use of anticoagulant; 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: [intermediate (current) use of anticoagulants] Onset: 08-05-2023 Episodic Other diseases of bladder and urethra (3 sources) Disorder of bladder; 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: [Other specified disorders of bladder] Onset: 10-08-2023 Chronic Other diseases of bladder and urethra (3 sources) Spasm of bladder 05-12-2024 Chronic Other diseases of kidney and ureters (1 source) Urinary tract obstruction; 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: [Other obstructive and reflux uropathy] Onset: 04-14-2024 Episodic Other lower respiratory disease (16 sources) Dyspnea on exertion 11-28-2023 Episodic Other lower respiratory disease (2 sources) Dyspnea; 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: [Shortness of breath] Onset: 04-07-2024 Episodic Other non-traumatic joint disorders (13 sources) Knee pain 12-30-2023 Episodic Other nutritional; endocrine; and metabolic disorders (1 source) Morbid obesity; 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: [Morbid (severe) obesity due to excess calories] Chronic Other screening for suspected conditions (not mental disorders or infectious disease) (20 sources) Encounter for screening for malignant neoplasm of prostate; 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: [Screening for malignant neoplasm done] Onset: 08-05-2023 Episodic Phlebitis; thrombophlebitis and thromboembolism (20 sources) Acute embolism and thrombosis of unspecified deep veins of left lower extremity; 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: [H/O: Deep vein thrombosis] Onset: 02-25-2023 Episodic Screening and history of mental health and substance abuse codes (20 sources) H/O: Disorder; 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: [Personal history of nicotine dependence] Onset: 08-05-2023 Episodic Skin and subcutaneous tissue infections (1 source) Cellulitis of right upper limb Episodic Unclassified (19 sources) Drug therapy finding 08-05-2023 Unclassified (17 sources) Patient encounter status 08-05-2023 Results Test Name Value Interpretation Reference Range Facil ity Ambulatory Visit Summaryon 0 06-09-2024 Ambulatory Visit Summary Ambulatory Visit Summary EUGENIA GIL :1950 Visit Date:06/09/2024 Ambulatory Visit Instructions Your Diagnosis Urinary retention Your Care Team Attending Physician - ELEAZAR Luis APRN, Rae Schmidt Primary Care Physician - Cortez Degroot MD This Is Your Medications List oxybutynin (oxybutynin 5 mg Tab) tamsulosin (tamsulosin 0.4 mg Cap) warfarin (warfarin 5 mg Tab) Procedures Performed Catheterization of left heart (04/17/2024), Tonsillectomy. What to do next Scheduled Follow-Up Appointments Saturday 10:00 AM EDT With: Where: [facility] Invalid Interpretation Code [address] [place] [address]- \.br\ Saturday 10:45 AM EDT \.br\ With: Shahab PATTON MD\.br\ Where: [facility] Consent for Treatmenton 04-26 Consent for Treatment [id number] 0TIFF [facility] Formson 05-20-2024 Forms [id number]#1. 00TIFF [facility] Heart and Vascular Office/Cl inic Noteon 05-20-2024 Heart and Vascular Office/Clinic Note History of Present Illness Patient is a 73-year-old male with past medical history of intermittent chest pains and dyspnea on exertion. Patient comes in for 1 month follow-up on heart cath. Patient had heart cath on 04/17/[address] Nino due to inconclusive stress test prior to needed surgical procedure. The heart cath came back as nonobstructive mild CAD and patient was cleared for needed procedure. He is able to hold warfarin for 5 days as he is taking this for DVT prophylaxis and has been more than 3 months since his most recent DVT - was in 2017. Patient reports that he did not have any issues with his wrist following the procedure. No significant swelling, erythema or any drainage at any time to right wrist. Patient is doing well at this time he does not have any cardiac complaints. Although, he does report a little bit of swelling to left lower extremity as that is the leg that he had a DVT in 2017. Patient denies chest pain, shortness of breath, heart palpitations, dizziness/lightheadedn ess, Review of Systems PHQ Score Initial Depression Screen Score: 0 SCORE ROS - Provider Constitutional: no fever, no chills, no sweats, no weakness Respiratory: no shortness of breath, no cough Cardiovascular: no chest pain, positive for swelling lower extremities Neuro: no dizziness. no loss of consciousness Physical Exam Vitals & Measurements HR: 76(Peripheral) RR: 16 BP: 132/79 SpO2: 89% HT: 68 in HT: 173 cm WT: 154.2 kg WT: 339.24 lb BMI: 51.52 General: alert, no acute distress Cardiovascular: regular rate and rhythm, no murmur normal peripheral perfusion Respiratory: Lungs CTAB, respirations non labored Extremities: Trace edema left lower extremity. no edema right lower extremity. Right radial access site is well healed. No bruising, bleeding, or hematoma. Strong radial pulse with good extremity perfusion. Neurological: oriented x 4, LOC appropriate for age, speech normal Skin: Warm, dry, intact- no rash or concerning lesions Cardiac Diagnostics C with Dr. Nino on 04/17/2024: LMT: Short left main trunk almost separate ostia with bifurcation LAD: Normal caliber with possible indeterminant ostial stenosis appearing more severe with diagnostic catheters, reaches the apex. IVUS shows minimal plaque at the ostial LAD. LCx: Normal caliber with mild irregularity and no stenosis, reaches the lateral wall. RCA: Normal caliber with mild irregularity and no stenosis, dominant, reaches the inferior wall. Hemodynamics: Normal LVEDP with no gradient across the aortic valve. Left ventriculography: Not done due to renal insufficiency IVUS note: Successful IVUS of the proximal LAD and left main showing minimal plaque and cross-sectional area of the lumen greater than 4 mm? of the ostial LAD which is not a significant narrowing Conclusions: Nonobstructive mild CAD. Medical therapy is advised. Acceptable for upcoming surgery [1] (02/06/2024 09:16 EDT EC Stress Echo Complete w/ Contrast) Interpretation Summary Ejection Fraction = 60-65%. Nondiagnostic exercise EKG due to severe motion artifact. Patient unable to keep up with treadmill so test was aborted. Peak imaging nondiagnostic due to very poor echo windows despite Definity agent. Nondiagnostic adequate treadmill echocardiogram. EKG and echocardiogram are uninterpretable due to motion artifact and poor echo windows. Patient unable to keep up with a treadmill so test was aborted. Recommend clinical correlation alternative mode of testing if clinically indicated. No anginal symptoms or arrhythmias noted for exercise obtained. [1] (12/19/2023 08:56 EST Echo Transthoracic Complete) Interpretation Summary Ejection Fraction = 60-65%. Normal LV and RV. No significant valve disease. Normal estimated PA pressure. Impaired diastolic relaxation. Dilated aortic root and ascending aorta. [2] (12/20/2023 15:56 EST NM Myocardial Spect Multi Stress) FINDINGS: Uptake of the tracer was generally homogeneous with no identifiable ischemia or infarction. The TID ratio was elevated at 1.32, however, processing appeared to be different between the rest and stress images and visually there is no increased left ventricular size with stress. CONCLUSIONS: Only fair quality stress imaging due to large body habitus and inconsistent processing. Cannot exclude significant finding. Clinical correlation suggested. Consider alternate imaging modality. Assessment/Plan 1. CAD in [place] artery (I25.10: Atherosclerotic heart disease of [place] coronary artery without angina pectoris) Patient did have mild CAD that was nonobstructive seen on cath from 04/17/2024. Patient has been doing well since procedure and did not have any right wrist issues following the procedure. Patient is taking warfarin as a blood thinner, but was not started on any other medications following the procedure and does not wish to start any at this time. Patient is cleared for needed urological procedure and clif (more content not included)... [facility] Comment on above: Result Comment: Elec tronically Signed By: Paul Barbosa PA-C\Date and Time Signed: 05/20/24 10:42 EDT Physician Orderon 05-20-2024 Physician Order [id number]. 00TIFF [facility] Coding Queryon 05-15-2024 Coding Query - From: Jessica Oliver To: Mica GUERIN, Aditya Orta; Cc: Joanne Lester; Sent: 04/30/2024 09:22:46 EDT ! Subject: Coding Query Dr Nino, There is conflicting information in the OP note if ventriculography was done or not. It is listed under Operation. In Findings it says it was not done. In the Technique paragraph it states the catheter was placed in left ventricle and measurements were done Can you please clarify if the ventriculography portion was done or not. Thank you, Gaby ZAPATA Coding From: Mica GUERIN, Aditya Orta To: Jessica Oliver; Sent: 05/15/2024 10:01:49 EDT Subject: RE: Coding Query Caller Name: KANDICE EUGENIA Guillen; Caller Number: Chris , It was not done, I put an addendum [facility] Coding Summary.on 05-15-2024 Coding Summary. ZQQYQyls60ESr7pOk+PG hl YWQ+LU7YLHEjS81vdFOkxO 5pA0OEZLxKPqirPTBNWBhH AiWwhsEgTU3sxDTrSTKs IC8+FU6vAYUrBvuefZCkj1 R3bXT2J99gft8pPVzdnJD2 DHMoQkJvxeiml0qaxAn4MM cuNmluOyBt BVRxaX97GCM8vH26Qk98oI KhiMAoy3oxpBr7AoZbIOGd JAX5lDqhTTzcc3OcDWZuD1 6pyXObh6I5 WPMvhZbtpNKwHhXdbRK3cV 4lGLiaqlswd4plfhcsDur7 wy58mVJcl3M0eKX4T7Qygp B5PBOkwTPe RuacyQTCxQ5rivbjn5kiqt mnRrHmAPDwBDh4UBu8XGWv bLeqNrFlXX84WOQ7RYIyph ZnV8EwUHRh oFtrXfO7a3O5Xv1IV8GRQr ftT1FKBDIEBUxcbQO+PC90 aa74F2CpFfopIxe4ZGSkET F3zOP6xA6e ACEuEUuzv5A8uWK1Q8Zpxg Cdvj2ig4gfBIBiIHfsS66s oGFtq1V6VCYddTI3PUUzvZ gdUmUecN65 Oyc+UECnsDxtg9JcCjgua0 vyr8hnsFa9ZpkzEFCxpnQi pLmmJQL5d1FiJd3mJZWjuP N9xWB2bZ0f YxMnJfN9KFpnY919CoDxzU FpFihfO67gA3PoaHC+PHRy Rbq4ADYeqVysME9lF2PyCD RpbmctbGVm uWtgHI7lPPUehodiCDJnxP 4rDAFsI4b4RlXfUtB9UBzq V6NtDDZahgkpBm87eP5gJf QkRbM1PZvt F2BwxzJ2UCXhvOAyNJycID V0C21ua5W4TQLdVRRjXIC9 iNS8tT9wmEyuyhzgkTKkdU sgdmVydGlj QJoyTPsuO114OCAvgGusZh NvZGluZyBEYXRlOiAgMDYv MjEvMjAyNDwvdGQ+PHRkIH E5uRihGZTp mGRfJSbcXa0hiQgfjEgnKS 7fKTQbnogrKEPsnV4xWMOs lEUyrQykXS4fZRWprqdwl6 64LcLhMDA3 FLCprFJnP1CpdS4dYxFbPL RpYKYrT5TmcORgMHplR563 IKcuVpZ6ADJfqwXkR0HwPG FsaWduOiB0 r2B5Sp3Xe4QwiasdT3IhwI WiSxKnOtcrSTu3V2CtVqlo dHI+WJ92MFWdCY51ICh6UG G2kYofJLve GDPwC9HokP8nRuAkRCBmTX RkOyc+PHRhYmxlIHdpZHRo UCdeSIVrGbZgiUtbOQ4iKu 9yZGVyLWNv hUydaKQlChMue7qdHXZdTJ cdEP8msGmuP3AqwOI9FYQc h0j6Mm82J84dJ2UtwCF+PG QoiLC8zLV9 nJ6mDlBmLaS0XKhlW346Iz HwlWApOvpii1omu7rgsXg8 DpM1TTAsckGkvYjzHUH7h4 NrSi90A35l IHdpZHRoPSIxNSUiIHZhbG mpds6woZ6qGn1+PGNvbCB3 iNX3jO3pNmZdUhL0YKnmH3 49InRvcCIv Jhkwz6pdw8imbUb6IbOjGG HdjzGkqXtcEFM8y2GtSj31 R5QpzUlhs4FmZsh7tu53rX Tuh5P0aLW7 T4TqASTfrysarGVkqNgbGY 3pNQJybuxgNVWxxS7gIKJv D1z9NkUlFsQ4CMzeQ7Sqbt E2YPWgaAGs VSZjdTMMsM9mhrorm2nzdu zgBxHkUWEyOGr7AAd3ZGCo mSuaPgIkDUP6HtE5XPA7mC HjuG4jmNez yrmdtW6cOby+RGV9kIVabV FBKB5dYqlsxBV+PHRkIHN0 bQxoZOaaRQDmpT3vEFGfE2 k8BwFfPaW5 ZYqqQ6MwmkZ3ECLoqSWbKY VdvZWXfP4iukuqk7ahnqco FgTeICSfUSq6JOr6DFXpdL duOiBsZWZ0 XwH6LJC2oDWmgG6feGbzkl dmuY0dStd+QmlydGggRGF0 OWp5C4InBnd0GPQpvGnoIE 0ncGFkZGlu Ct4vvOgcoBkfFB8oMAKsma vvb900VgBdf1cyYBTuqAOp LUawHQT5A80lu6M8ATVmVV FbRKZ6pIR9 kI4pjJtqzynlzXXkkQfmpz OzgNmeGRhvRBujN370EEQu tVriMcMyDTw1K6YvVli1IR WkrLqgUL1j cNWaTTpiQc5avIdblBbrMQ 4hKJUacjarm897GdNjh4ys DLJpiSQxRCmcDJP1O85mq9 O1IHSbHAUx NBA9wLL4fR4hiHvmrkvkaJ VmdDsgdmVydGljYWwtYWxp D056XYWvrCodJtWdkMt2Y1 EjHwp3IUDg lKtaRE8edCBoUOdmPr6keN nmsDywJW9bQADfkgwtn703 VxZcj7toQODudFEmTAqiOB E7Q80kl4M3 NDSzGAZcELX7gGR5yO6gsZ lnbjogbGVmdDsgdmVydGlj ARhqQVdzH425IYMmdBveYk BhdGllbnQg WWtpJBc4G2LzPxtsrOW+PC 14EMEtBA70eIYmpQKzm0ec iDu6OeDhYTWzCZF1uWzxPL ebu0ZzFEXc I00ycQEtq2V9JWRcxVyvuA FgVcAnoLY4qY7nYWaaotas f6wvxjpdBjfas6ulog93cB 32Q01lLIns ZHRoPSIzMCUiIHZhbGlnbj 2xlC1bHl2+WYUbaFJ1mDR9 aU0hZYQgGyU3FQirA326Aj RvcCIvPjxj p3ima7lqpRd4LsG4NSGcwt JjbHxfGHY2b1NoLw83G21l IHdpZHRoPSIyMCUiIHZhbG esjs5izS1h Ii8+XWZdgID3rZM8wW2bXi AmDrE3NZupJ826PgMciCCr PzgrS03vD4AaeZS+PHRyPj p8OYIgpRif BB8ksLUaSKctDl3eOPW6Cp PuBnScNNhrC1UeGMAoiczw yzhdfYJ2IERyMPLziH24Sy 9udDogMTBw uXUByH4fwoygp6iuwuntDz ZfWYWfFJz0ZNp0HFCraVwe WtKrRRA5CdK0DVS9uAEsmA 1hbGlnbjog cC4yL4OiJOStmxdoYa16gF 5yVvQaLyM9YEbeLtn+Sk9I TlNPTiwgSkFNRVMgRDwvdG Q+PHRkIHN0 rBrvSSfeKJDivP5wIDWxH1 c7HwOmSjW5TEcaX0HwQUEu jpydJn80gM1eIgKuSxP2JZ arE6IzgcD2 ZXAndKFsSVozEJP8S40ur6 O8BIVyTLLaTII2uHJ0mL1l bGlnbjogbGVmdDsgdmVydG ljYWwtYWxp J548VSDmyMobEuTuEuM5Pc O7STF6C4EwXjh9HKKshDkj PS0rgVSwLEpeIf6soXvcdS kvNC9wLYNm ldgbKFSogU6nZXDwbKHseQ yvOZ9gVPSrdfsdj712QyDm PML2WAGjaMVsS2LijR9kQv AjMDAwMDAw P6CvvXZiUKzzW476NXatVu Y9QUUbbpThW6FdPXOtdPci EcC1m1E4Sx43ACGWTPChkn wvdGQ+PHRk LIO7rGjeGOltPLUcwY9cIP YfS1y0GrYpHhG3MTcnZ7Za WFYzoecpYp05nG9vQlBrNz V6LLxjO6Nn ujJ6JIBwmVMiUTrtHRH6I5 5uw2U8LLCxMXCbKMA7sUO8 vX5zcKtrhtigvOXvkXbgls VydGljYWwt DRdnZ366TPJxuRfnBl1tfF K2G5QmQwe9HHPofExvZM7r aEAgHBwyXp4viHzqeFzaVL 4wNTBpbjtw MXKcaV8vHKSxlHGxcCyhYP 0nUSMkqswwt931SlBlTAO9 XOUjyISdB6DduE5aXkBoFT NyJHWzO1Ak gNWpFMyjU576HQpgWaP1VZ GondTbZ6RuIXZdgNzbFpU6 x9K3Pk8FnKQ8kSG2o5X9G3 NhbWUgRGF5 SZZ0zjgtsjl1R3PrZghpoA I+GI64GOPfVO31mBOdgUVv j3zveKc5SfFcAHBhXIZ3nP ubXLgok6Sf FTWhT46psZIju3Y8UYFirR rtmMKrLzGqfOE1lO1jKNmo yirrn9jirfrpUhhqx7ytjv 34bR49M73g IHdpZHRoPSIzMCUiIHZhbG jgbd3nfN6zCk7+PGNvbCB3 pUE9qR5fQbQvDrI1WVicA0 49InRvcCIv Ghsxz0ubs0ktuRu2NbZdCY QhmpEkyMadXMT9b7ZtXo86 O40nAEmwTZOxZEFeCJObNT CtxVlesc2b uQ4wBu6+GM1bu1pjkd43dJ 48dHI+AVYtLTB1kXvmRRld XBJggB3uYKyoUpV0ZXDgJy HvtJ39wIIp QZqdQs8cnCpuoHnjJE4bTY Daomasa232NpBuw5xrNATu bAEyCObdKVQ3B33mn9L7RJ MwMDAwMDA7 dVL4cE8aiYbyygbwaFQlxA rwesZegGcgTCmvPBsmH473 EEYqpAvwSmPkuBByX2iore BCOL8uKwby dGQ+CBGeCFE8yLiqVZczYY UvxE4vDCNqK5v4OtPbCqU6 WKoxV9XuugY9RKHhtGBkLC CzqDUHrV6m gepzo9btibysUuQcLHHzOV m6IVb2TDPeaTtiTbNpFSL0 QpN9VXW3nZQjgE2esKqsrl pglY9jLqe+ RklOOjwvdGQ+LTNnRMM9oD bwBWhyESSrxO5zEABuL8c4 FeRhDxV9PPeuH5SmkiF6KY JvbGQgMTBw oPYRaQ4tutygp7tevuuhBy VsXXKfDMd9JIn2MDEvnYlb QrPsLSD0YvM2CLI3bIOsmP 1hbGlnbjog yZ1wJmg+TVJOOjwvdGQ+PH QxVXF6sRixDMlhDPXljE3i FSPcO8v7OgPxShM6DNdmL9 SozdN6AXUe kAJwTPQrnWYBlL0dbjxwq3 fzfajnFyEmAPAvJKe2PEm3 JVFlzTkkAwEtPPK6LoR1UI M6qCLbdI9f rYodqpldoV0xIbd+UGF5ZX P6SG74PE61N6YjIhaoeFSk bGU+PHRhYmxlIHdpZHRoPS cxMDAlJyBz dBmcNK4rSq5kW (more content not included)... Normal [facility] Operative Reporton 4 Operative Report Indication for Surge ry Preoperative assessment and patient who had not 2 nondiagnostic stress test Preoperative Diagnosis presumed CAD Postoperative Diagnosis Confirmed mild irregularity nonobstructive Negative IVUS of the ostial LAD Cleared for surgery Operation Coronary angiography Left ventriculography Hemodynamic measurements of the left ventricle IVUS of the proximal LAD and left main This note is completed immediately following the procedure the date and time of this procedure are the same as this note. Surgeon(s) Aditya Nino MD Anesthesia Conscious sedation Estimated Blood Loss Trivial Findings LMT: Short left main trunk almost separate ostia with bifurcation LAD: Normal caliber with possible indeterminant ostial stenosis appearing more severe with diagnostic catheters, reaches the apex. IVUS shows minimal plaque at the ostial LAD. LCx: Normal caliber with mild irregularity and no stenosis, reaches the lateral wall. RCA: Normal caliber with mild irregularity and no stenosis, dominant, reaches the inferior wall. Hemodynamics: Normal LVEDP with no gradient across the aortic valve. Left ventriculography: Not done due to renal insufficiency IVUS note: Successful IVUS of the proximal LAD and left main showing minimal plaque and cross-sectional area of the lumen greater than 4 mm? of the ostial LAD which is not a significant narrowing Conclusions: Nonobstructive mild CAD. Medical therapy is advised. Acceptable for upcoming surgery Complications None Technique Following full and informed consent the patient was brought to the Regional Operations Manager where sterile prep and drape were administered in usual fashion. Anesthesia was obtained in the right wrist with lidocaine after administration of conscious sedation. A 5/6 slender Terumo sheath was placed in the right radial artery without complication. Nitroglycerin and nicardipine were given via the sheath and heparin was given intravenously. A 5 Mosotho JACKE catheter was advanced and selectively engaged in the left main coronary artery and right coronary artery each, where selective injections were performed. A pigtail catheter was placed in the left ventricle where hemodynamic measurements the left ventricle were made a pullback gradient was obtained. A guide catheter was advanced and selectively engaged into the LMT following which the guide wire was advanced into the proximal vessel and IVUS catheter was advanced and a pullback recording was performed. Completion angiography was performed. The sheath was removed with hemostasis obtained by D-Stat radial device at the end of the procedure without complication. The technique portion of the test was inaccurate, left ventriculography was not done. Normal [facility] Comment on above: Result Comment: Elec tronically Signed By: Mica GUERIN, Aditya Orta\.br\Date and Time Signed: 05/15/24 10:01 EDT Ambulatory Visit Summaryon 0 05-12-2024 Ambulatory Visit Summary EUGENIA GIL :1950 Visit Date:05/12/2024 Ambulatory Visit Instructions Your Diagnosis Urinary retention Bladder spasm BPH with urinary obstruction Anticoagulated Your Care Team Attending Physician - ESPERANZA LIVE PA-C Primary Care Physician - Cortez Degroot MD. This Is Your Medications List oxybutynin (oxybutynin 5 mg Tab) tamsulosin (tamsulosin 0.4 mg Cap) warfarin (warfarin 5 mg Tab) Procedures Performed Catheterization of left heart (04/17/2024), Tonsillectomy. What to do next Scheduled Follow-Up Appointments Saturday 9:45 AM EDT With: Paul Barbosa PA-C Where: [facility] Saturday 12:30 PM EDT With: ELEAZAR Luis APRN, [place] [facility] Where: [facility] Invalid Interpretation Code [address] [place] [address]- \.br\ Saturday 2:30 PM EDT \.br\ With:\.br\ Where: [facility] Family [facility] Family Medicine Office/Clini c Noteon 05-12-2024 Family Medicine Office/Clinic Note Chief Complaint Medicare Wellness Visit History of Present Illness Covid-19, MERS, Ebola Screen *Contact With Person With Highly Contagious Disease Like Ebola/MERS/COVID-19 AND Have One or More of the Symptoms Below : No *Travel to a Country With Wide-Spread Ebola/MERS/COVID-19 in the Past 21 Days AND Have One or More of the Symptoms Below : No Patient Reported Covid-19 Testing : No *Verify Droplet, Contact Precautions for Ebola (Reference for CDC) : N/A *Verify Airborne, Droplet Precautions for MERS/COVID-19 : N/A Akua Metz LPN - 05/11/2024 12:50 EDT Medicare/Medicaid Summary Height/Length Measured : 173 cm(Converted to: 5 ft 8 in, 68.11 in) Weight Measured : 157 kg(Converted to: 346 lb 2 Ounces, 346.126 lb) Body Mass Index Measured : 52.46 kg/m2 Height in Inches : 68 in Weight in Pounds : 345.4 lb Systolic Blood Pressure : 138 mmHg Diastolic Blood Pressure : 80 mmHg Peripheral Pulse Rate : 76 bpm Respiratory Rate : 20 br/min SpO2 : 91 % Akua Metz LPN Barry 05/11/2024 13:00 EDT Chief Complaint : Medicare Wellness Visit Patient Counseled : Nutrition, Physical activity, Elevated BMI Blood Pressure Location : Right arm Blood Pressure Position : Sitting O2 Sat Resting/Exertion Alpha : Resting Pain Present : No actual or suspected pain Akua Metz LPN Barry 05/11/2024 12:50 EDT Hearing and Vision Screening FT Vision Screen Comments : Wears corrective lenses, goes to [facility] for eye exams. Akua Metz LPN Barry 05/11/2024 13:00 EDT FT Whisper Test Comments : No deficits noted. Akua Metz LPN Barry 05/11/2024 12:50 EDT Advance Directive FT Patient Wishes to Receive Further Information on Advance Directives : Yes Organ Donation Consent : No Akua Metz LPN Barry 05/11/2024 13:00 EDT Advance Directive : No Akua Metz LPN Barry 05/11/2024 12:50 EDT Procedures / Surgeries FT - Procedure History (As Of: 05/11/2024 13:28:45 EDT) Anesthesia Minutes: 0 ; Procedure Name: Tonsillectomy ; Procedure Minutes: 0 ; Last Reviewed Dt/Tm: 05/11/2024 12:52:38 EDT Procedure Dt/Tm: 04/17/2024 ; Provider: Mica GUERIN, Aditya Orta; Anesthesia Minutes: 0 ; Procedure Name: Catheterization of left heart ; Procedure Minutes: 0 ; Last Reviewed Dt/Tm: 05/11/2024 12:52:38 EDT Family History Family History (As Of: 05/11/2024 13:28:45 EDT) Grandparent: Relation: Grandparent ; Nomenclature: Alzheimer's disease ; Comments: 12/30/2023 15:07 JULIO - Connie Ortega LPN paternal grandmother ; Value: Positive Father: Relation: Father ; Gender: Male ; Nomenclature: Leukemia ; Value: Positive Mother: Relation: Mother ; Gender: Female ; Unknown History Medicare/Medicaid Social History FT Social History (As Of: 05/11/2024 13:28:45 EDT) Alcohol: Denies Alcohol Use Current, Beer, 1-2 times per year, 1 drinks/episode average. 2.00 drinks/episode maximum. Previous treatment: None. Alcohol use interferes with work or home: No. Drinks more than intended: No. Others hurt by drinking: No. Ready to change: No. Household alcohol concerns: No. Comments: 05/11/2024 13:09 - Akua Metz LPN: Patient states he drinks alcohol 1-2 times per year, 1-2 drinks per episode (Last Updated: 05/11/2024 13:09:33 EDT by Akua Metz LPN) Tobacco: Denies Tobacco Use Former smoker, quit more than 30 days ago Tobacco Use:. Never Smokeless Tobacco Use:. Cigarettes, 1 per day. 50 year(s). Total pack years: 50. Started age 19.0 Years. Stopped age 69 Years. Household tobacco concerns: No. Comments: 05/11/2024 13:28 - Akua Metz LPN: Patient states he smoked 1 PPD from 19 y.o. to 69 y.o. (Last Updated: 05/11/2024 13:28:01 EDT by Akua Metz LPN) Substance Abuse: Denies Substance Abuse (Last Updated: 04/17/2024 07:33:58 EDT by Brian MANCINI, Rick Mc ) Health Risk Assessment FT HRA little interest or pleasure? : Yes Akua Metz LPN - 05/11/2024 13:00 EDT HRA down, depressed, or hopeless? : No Akua Metz LPN - 05/11/2024 12:50 EDT Hazards in your house? : Yes Akua Metz LPN - 05/11/2024 13:00 EDT Fall Risk Past Year : No Akua Metz LPN - 05/11/2024 12:50 EDT Worried About Falling : Yes Akua Metz LPN - 05/11/2024 13:00 EDT Use a Cane or Walker? : No Someone Helps You in the Morning : No Fallen or felt dizzy standing up? : No Assistance with personal care? : No Trouble taking meds correctly? : No HRA Pain Present : No Able to walk without help? : Yes Ability to shop w/out help : Yes Prepare your own meals? : Yes Housework without help? : Yes Handle money without help : Yes Track own medications without help? : Yes Akua Metz LPN - 05/11/2024 12:50 EDT Overall mood for past four weeks : Good and bad parts about equal General health rating : Good Someone avail. to help if needed? : Yes, a little Phys. & emotional health limit social act? : Moderately Michelle Metz LPNinocencio Solorzano - 05/11/2024 13:00 EDT [facility] (more content not included)... Normal [facility] Comment on above: Result Comment: Elec tronically Signed By: Cortez Degroot MD\.br\Date and Time Signed: 05/12/24 12:44 EDT\.br\Electronically Co-Signed By: Akua Metz LPN\.br\Date and Time Co-Signed: 05/11/24 14:08 EDT Lab Reportson 05-12-2024 Lab Reports [id number] 0TIFF [facility] Screenson 05-12-2024 Screens [id number] TIFF [facility] Ambulatory Visit Summaryon 0 05-11-2024 Ambulatory Visit Summary EUGENIA GIL :1950 Visit Date:05/11/2024 Ambulatory Visit Instructions Your Diagnosis Hx of deep venous thrombosis SOB (shortness of breath) on exertion Your Care Team Attending Physician - Cortez Degroot MD Primary Care Physician - Cortez Degroot MD This Is Your Medications List oxybutynin (oxybutynin 5 mg Tab) tamsulosin (tamsulosin 0.4 mg Cap) warfarin (warfarin 5 mg Tab) Procedures Performed Catheterization of left heart (04/17/2024), Tonsillectomy. What to do next Scheduled Follow-Up Appointments Saturday 1:00 PM EDT With: Where: [facility] Invalid Interpretation Code [address] [place] [address]- \.br\ Saturday 2:30 PM EDT \.br\ With:\.br\ Where: [facility] Ambulatory Visit Summary EUGENIA GIL :1950 Visit Date:05/11/2024 Ambulatory Visit Instructions Your Diagnosis Annual visit for general adult medical examination without abnormal findings BPH with urinary obstruction Anticoagulated Former smoker Screening declined by patient BMI 50.0-59.9, adult Morbid obesity Your Care Team Attending Physician - Cortez Degroot MD Primary Care Physician - Cortez Degroot MD This Is Your Medications List oxybutynin (oxybutynin 5 mg Tab) tamsulosin (tamsulosin 0.4 mg Cap) warfarin (warfarin 5 mg Tab) Procedures Performed Catheterization of left heart (04/17/2024), Tonsillectomy. Discharge Vitals Heart Rate (Peripheral) 76 Respiratory Rate 20 Blood Pressure 138/80 Height 173 cm Height 68 in Weight 157 kg Weight 345.4 lb BMI 52.46 What to do next Scheduled Follow-Up Appointments Saturday 1:00 PM EDT With: Where: [facility] Invalid Interpretation Code [address] [place] [address]- \.br\ Saturday 2:30 PM EDT \.br\ With:\.br\ Where: [facility] Family Medicine Office/Clini c Noteon 05-11-2024 Family Medicine Office/Clinic Note HPI Staff Eugenia is a 73 year old male presenting for 2 month follow up Pt was to get cardiology clearance for TURP Had his AMW with Akua today Not scheduled for surgery yet, had a stress test and chemical one both inconclusive, had a cardiac cath done but doesn't know how that turned out. History of Present Illness - Here for follow up. - Cleared with Cath - Needs follow up after - NO issues at this time. - Last INR was 1. Physical Exam General: alert, no acute distress, Morbidly Obese ENMT: oral mucosa moist, Cardiovascular: regular rate and rhythm, normal peripheral perfusion Respiratory: Lungs CTA, respirations non labored Extremities: no deformity, no trauma Neurological: oriented x 4, LOC appropriate for age, CN II-XII intact, motor strength equal & normal bilaterally, speech normal Abdomen: Soft, Nontender, Non-distended, + BS Assessment/Plan 1. Hx of deep venous thrombosis (Z86.718: Personal history of other venous thrombosis and embolism) - Pt will need to get back to an INR after surgery of a 2-3. - Pt to follow up with coumadin clinic - Reviewed notes. 2. SOB (shortness of breath) on exertion (R06.02: Shortness of breath) - 2/2 Obesity - Cath with only mild CAD - Following up with cardiol - Cleared for surgery Follow-up No qualifying data available Problem List/Past Medical History Ongoing Abnormal EKG Anticoagulated BPH with urinary obstruction Elevated PSA Former smoker Hx of deep venous thrombosis Knee pain SOB (shortness of breath) on exertion Urinary retention Historical No qualifying data Procedure/Surgical History Catheterization of left heart (04/17/2024), Tonsillectomy. Medications oxybutynin 5 mg Tab, See Instructions, PRN, 3 refills tamsulosin 0.4 mg Cap, 0.4 mg= 1 cap(s), Oral, BID, 11 refills warfarin 5 mg Tab, See Instructions Allergies No Known Allergies Social History Alcohol - Denies Alcohol Use, 04/17/2024 Current, Beer, 1-2 times per year, 1 drinks/episode average. 2.00 drinks/episode maximum. Previous treatment: None. Alcohol use interferes with work or home: No. Drinks more than intended: No. Others hurt by drinking: No. Ready to change: No. Household alcohol concerns: No., 05/11/2024 Substance Abuse - Denies Substance Abuse, 04/17/2024 Tobacco - Denies Tobacco Use, 04/17/2024 Former smoker, quit more than 30 days ago Tobacco Use:. Never Smokeless Tobacco Use:. Cigarettes, 1 per day. 50 year(s). Total pack years: 50. Started age 19.0 Years. Stopped age 69 Years. Household tobacco concerns: No., 05/11/2024 Family History Alzheimer's disease: Grandparent. Leukemia: Father. Immunizations Vaccine Date Status SARS-CoV-2 (COVID-19) mRNAMUL.[id number] 12/13/2022 Recorded SARS-CoV-2 (COVID-19) mRNA BNT-162b2 vax 10/30/2021 Recorded SARS-CoV-2 (COVID-19) mRNA BNT-162b2 vax 02/14/2021 Recorded SARS-CoV-2 (COVID-19) mRNA BNT-162b2 vax 01/23/2021 Recorded Normal [facility] Comment on above: Result Comment: Elec tronically Signed By: Zane GUERIN, Cortez Hamilton.br\Date and Time Signed: 05/11/24 14:07 EDT Patient Educationon 05-11-20 Patient Education Infectious Disease Hepatitis C Testing Why am I having this test? Hepatitis C testing is done to check for a liver infection caused by the hepatitis C virus (HCV). A person may have one or more hepatitis C tests done to: ? Help the health care provider diagnose HCV infection. This is if a person has possible signs of infection or has been exposed to HCV. ? Find the cause of long-term (chronic) liver disease or abnormal liver function test results. ? See if a person has had hepatitis C in the past. Hepatitis C is usually diagnosed with three blood tests: ? Anti-HCV test, also called the HCV antibody test. ? HCV RNA test. ? HCV genotype test. If a person is diagnosed with a current (active) HCV infection, he or she may have another test done to help monitor the condition during treatment. This test is called the quantitative HCV RNA test. What is being tested? Each HCV test measures the amounts of different substances in your blood. ? The anti-HCV test checks for proteins that your body makes to fight HCV (antibodies). If you have antibodies to HCV, it means you have been infected with hepatitis C. It does not necessarily mean that you have an active infection. ? The HCV RNA test checks for genetic material from HCV. This test is done if your HCV antibody test is positive and your health care provider wants to find out if you have an active infection. ? The HCV genotype test. This test identifies the type (genotype) of virus you have. ? The quantitative HCV RNA test measures the amount of virus in your blood (viral load). What kind of sample is taken? A blood sample is required for HCV tests. It is usually collected by inserting a needle into a vein in the arm. How are the results reported? ? Anti-HCV test results are reported as either positive or negative for HCV antibodies. ? HCV RNA test results are reported as either positive or negative for HCV genetic material. ? HCV genotype test results are reported as which genotype of the virus you have. Genotypes are numbered 1 through 6. ? Quantitative HCV RNA test results are reported as a number that indicates your viral load. This is given as international units of virus per milliliter of blood (IU/mL). ? A result of 800,000 IU/mL or greater is considered a high viral load. ? A result of less than 800,000 IU/mL is considered a low viral load. Sometimes, results from the anti-HCV test or the HCV RNA test may report that: ? HCV antibodies or genetic material are present when they are not present (false-positive result). ? HCV antibodies or genetic material are not present when they are present (false-negative result). What do the results mean? For the anti-HCV test: ? A negative result may mean that you have not been infected with HCV. You may need to have this test done again to confirm this result. ? A positive result may mean that you have an active HCV infection, or that you have been infected with HCV in the past. An HCV infection may not cause any symptoms, and your body may get rid of the virus without treatment. For the HCV RNA test: ? A negative result means that you do not have an active HCV infection. ? A positive result means that you have an active HCV infection. For the HCV genotype test, knowing the specific genotype you have will help your health care provider recommend the treatment that will work best for you. The quantitative HCV RNA test gives your health care provider an idea of how well your treatment is working. ? If your viral load is high, you may need different treatment. ? If your viral load is low, your treatment may be working effectively. ? You may have this test repeated to continue to monitor your treatment. Talk with your health care provider about what your results mean. Questions to ask your health care provider Ask your health care provider, or the department that is doing the test: ? When will my results be ready? ? How will I get my results? ? What are my treatment options? ? What other tests do I need? ? What are my next steps? Summary ? Hepatitis C testing is done to check for a liver infection caused by the hepatitis C virus (HCV). ? Hepatitis C is usually diagnosed with three blood tests and monitored with one test. ? A blood sample is required for these tests. It is usually collected by inserting a needle into a vein in the arm. ? Your test results for both the anti-HCV test and the HCV RNA test will be reported as either positive or negative. This information is not intended to replace advice given to you by your health care provider. Make sure you discuss any questions you have with your health care provider. Document Revised: 09/28/2021 Document Reviewed: 09/28/2021 [employer] Patient Education ? 2022 [employer]. Oncology Lung Cancer Screening A lung cancer screening is a test that checks for lung cancer when there are no symptoms or history of that disease. The s (more content not included)... Normal [facility] Cardiovascular Reporton Cardiovascular Report [id number]. 00TIFF [facility] Consent for Procedure/Surger yon 04-21-2024 Consent for Procedure/Surgery [id number] .00TIFF [facility] Discharge Instructionson Discharge Instructions [id number] .00TIFF [facility] COAGULATIONOrdered By: Jered Perla on 04-17-2024 aPTT Coag (PPP) [Time] 35.1 s Normal 25.1 - 36.5 second(s) [facility] Auto [facility] Comment on above: Interpretive Data: P arameter 15 days - 4 weeks 1 - 5 months 6 - 11 months 1 - 5 years 6 - 10 years 11 - 17 years PTT Mean: 35.4 (27.6-45.6) Mean: 33.5 (24.8-40.7) Mean: 32.4 (25.1-40.7) Mean: 31.6 (24.0-39.2) Mean: 31.6 (26.9-38.7) Mean: 31.0 (24.6-38.4) Pediatric Reference ranges were obtained from a study by Alexis Hernandez et al. prepared from 1437 samples obtained at 7 different centers using the same coagulation reagent and instrumentation as [facility]. Currently there are no coagulation studies available worldwide for children to 14 days, and no normal ranges. Heparin therapeutic range (represented by Anti-Factor Xa activity of 0.2 - 0.4 U/mL) corresponds to PTT of 56.6 - 109.0 sec. INR Coag (PPP) [Relative time] 1.04 {INR} Invalid Interpretation Code [facility] Comment on above: Interpretive Data: I NR results are specifically intended to assess patients stabilized on long-term Anticoagulation therapy suggested INR s Less Intensive Anticoagulation 2.0 3.0 Conventional Range 3.0 4.5 PT Coag (PPP) [Time] 11.7 s Normal 9.4 - 1 2.5 second(s) [facility] Comment on above: Interpretive Data: 1 5 days - 4 weeks 1 - 5 months 6 -11 months 1-5 years 6-10 years 11 -17 years Mean: 11.2 (9.5-12.6) Mean: 11.0 (9.7-12.8) Mean: 11.0 (9.8-13.0) Mean: 11.3 (9.9-13.4) Mean: 11.7 (10.0-14.6) Mean: 11.8 (10.0 - 14.1) Pediatric Reference ranges were obtained from a study by bhargavi Wise alEdil prepared from 1437 samples obtained at 7 different centers using the same coagulation reagent and instrumentation as [facility]. Currently there are no coagulation studies available worldwide for children to 14 days, and no normal ranges. Consent for Treatmenton 03-26 Consent for Treatment [id number] 0TIFF Normal [facility] Inpatient Clinical Summaryon 04-17-2024 Inpatient Clinical Summary [address] [address] Clinical Summary Person Information: Name: EUGENIA GIL Age: 73 Years : 1950 Sex: Male PCP: Cortez Degroot MD Marital Status: Single Race: White Ethnicity: Non- or Language: Norwegian Visit Id: Visit Reason: R07.9 R06.09 R06.02 Z01.818 Speciality: Acuity: Enc Type: Ambulatory/Same Day Surgery Med Service: Cardiovascular Arrival: 04/17/2024 06:57:58 Discharge: Dispo Type: Address: [address] [place] [phone] Provider Notes: Diagnosis: Problems Active Knee pain Abnormal EKG Hx of deep venous thrombosis SOB (shortness of breath) on exertion Elevated PSA BPH with urinary obstruction Former smoker Anticoagulated Urinary retention Smoking Status: Former Smoker Functional Status: Sensory Deficits: Uncorrected visual impairment History of Falls: Mobility Assistance Prior to Admission: Independent ADLs: Independent Current Level of Assistance for Self-Care/Mobility: Cognitive Status: Allergies No Known Allergies Measurements: Height: 180 cm Weight: 157 kg Blood Pressure: Not Valued / Not Valued BMI: 48.46 kg/m2 Procedures No Procedures Documented Immunizations No Immunizations Documented This Visit Final Med List: oxybutynin (oxybutynin 5 mg Tab) 1 tab po q 6 hrs PRN bladder spasms/leaking around hinton, up to TID; as needed for urinary discomfort. Refills: 3. tamsulosin (tamsulosin 0.4 mg Cap) 1 Capsules By Mouth 2 times a day for 30 Days. Refills: 11. warfarin (warfarin 5 mg Tab) TAKE 1 TABLET DAILY OR DIRECTED BY MEDICATION MANAGEMENT CLINIC. Refills: 3. Care Team Members: Attending Physician: Aditya Nino MD Consulting Physician: Referring Physician: Aditya Nino MD Follow up: With: Address: When: Paul Barbosa [address] [place] [phone] Business (1) 05/20/2024 9:45 AM Type Location Start Finish State FM Medicare Wellness Subsequent [facility] 05/11/2024 1:00 PM 05/11/2024 2:00 PM Confirmed FM Open [facility] 05/11/2024 2:00 PM 05/11/2024 2:15 PM Confirmed URO Nurse Visit [facility] 05/12/2024 1:00 PM 05/12/2024 1:15 PM Confirmed Cardiology Follow Up (FT) FT.[facility]iology Clinic 05/20/2024 9:45 AM 05/20/2024 10:00 AM Confirmed Patient Education Information: Cardiovascular Discharge Instructions - Revised 11/16/15 (CUSTOM) [facility] Inpatient Clinical Summary [address] [address] Clinical Summary Person Information: Name: EUGENIA GIL Age: 73 Years : 1950 Sex: Male PCP: Cortez Degroot MD Marital Status: Single Race: White Ethnicity: Non- or Language: Norwegian Visit Id: Visit Reason: R07.9 R06.09 R06.02 Z01.818 Speciality: Acuity: Enc Type: Ambulatory/Same Day Surgery Med Service: Cardiovascular Arrival: 04/17/2024 06:57:58 Discharge: Dispo Type: Address: [address] [place] [phone] Provider Notes: Diagnosis: Problems Active Knee pain Abnormal EKG Hx of deep venous thrombosis SOB (shortness of breath) on exertion Elevated PSA BPH with urinary obstruction Former smoker Anticoagulated Urinary retention Smoking Status: Former Smoker Functional Status: Sensory Deficits: Uncorrected visual impairment History of Falls: Mobility Assistance Prior to Admission: Independent ADLs: Independent Current Level of Assistance for Self-Care/Mobility: Cognitive Status: Allergies No Known Allergies Measurements: Height: 180 cm Weight: 157 kg Blood Pressure: Not Valued / Not Valued BMI: 48.46 kg/m2 Procedures No Procedures Documented Immunizations No Immunizations Documented This Visit Final Med List: oxybutynin (oxybutynin 5 mg Tab) 1 tab po q 6 hrs PRN bladder spasms/leaking around hinton, up to TID; as needed for urinary discomfort. Refills: 3. tamsulosin (tamsulosin 0.4 mg Cap) 1 Capsules By Mouth 2 times a day for 30 Days. Refills: 11. warfarin (warfarin 5 mg Tab) TAKE 1 TABLET DAILY OR DIRECTED BY MEDICATION MANAGEMENT CLINIC. Refills: 3. Care Team Members: Attending Physician: Aditya Nino MD Consulting Physician: Referring Physician: Aditya Nino MD Follow up: Type Location Start Finish State FM Medicare Wellness Subsequent [facility] 05/11/2024 1:00 PM 05/11/2024 2:00 PM Confirmed FM Open [facility] 05/11/2024 2:00 PM 05/11/2024 2:15 PM Confirmed URO Nurse Visit [facility] 05/12/2024 1:00 PM 05/12/2024 1:15 PM Confirmed Patient Education Information: Cardiovascular Discharge Instructions - Revised 11/16/15 (CUSTOM) [facility] Inpatient Patient Summaryon 04-17-2024 Inpatient Patient Summary [address] [address] Patient Discharge Instructions PERSON INFORMATION Name: EUGENIA GIL Date of : 1950 Current Date: 04/17/2024 13:05:42 PHYSICIANS Admitting Physician: Aditya Nino MD Primary Care Physician: Cortez Degroot MD PCP Comment: Discharge Diagnosis: Condition at Discharge: EUGENIA GIL has been given the following list of follow-up instructions, prescriptions, and patient education materials: PATIENT FOLLOW-UP INFORMATION Diet: Discharge Activity: Discharge Restrictions: Wound Care Instructions: Remove Your Dressing In Days Call Your Doctor For: IF UNABLE TO CONTACT YOUR PHYSICIAN AND YOU FEEL IT IS AN EMERGENCY, GO TO THE NEAREST EMERGENCY ROOM OR CALL 911 Home Treatment: Devices/Equipment: Special Services: Additional Instructions: Primary Care Physician to provide the following pending test results: None Follow up: With: Address: When: Palu Barbosa [address] [place] [id number] [phone] [facility] (1) 05/20/2024 9:45 AM In the event that this physician does not participate in your insurance network, please consult with your insurance company to find a nearby participating provider. Type Location Start Finish State FM Medicare Wellness Subsequent [facility] 05/11/2024 1:00 PM 05/11/2024 2:00 PM Confirmed FM Open [facility] 05/11/2024 2:00 PM 05/11/2024 2:15 PM Confirmed URO Nurse Visit [facility] 05/12/2024 1:00 PM 05/12/2024 1:15 PM Confirmed Cardiology Follow Up (FT) .[facility]iology Clinic 05/20/2024 9:45 AM 05/20/2024 10:00 AM Confirmed Comment: KANDICE Bro JAMES D, have received the attached patient education materials/instructions and have verbalized understanding: Patient Signature Date Clinican/Nurse Signature ___ Date HERE ARE THE MEDICATION CHANGES THAT OCCURRED DURING YOUR HOSPITAL STAY Medications to Continue with No Changes Other Medications oxybutynin (oxybutynin 5 mg Tab) 1 tab po q 6 hrs PRN bladder spasms/leaking around hinton, up to TID; as needed for urinary discomfort. Refills: 3. Last Dose: ___Next Dose: ___ tamsulosin (tamsulosin 0.4 mg Cap) 1 Capsules By Mouth 2 times a day for 30 Days. Refills: 11. Last Dose: ___Next Dose: ___ warfarin (warfarin 5 mg Tab) TAKE 1 TABLET DAILY OR DIRECTED BY MEDICATION MANAGEMENT CLINIC. Refills: 3. Last Dose: ___Next Dose: ___ Comment: MEDICATION LIST PROVIDED FOR YOU IS A LIST OF YOUR CURRENT MEDICATIONS. PLEASE CARRY THIS WITH YOU AT ALL TIMES. oxybutynin (oxybutynin 5 mg Tab) 1 tab po q 6 hrs PRN bladder spasms/leaking around hinton, up to TID; as needed for urinary discomfort. Refills: 3. tamsulosin (tamsulosin 0.4 mg Cap) 1 Capsules By Mouth 2 times a day for 30 Days. Refills: 11. warfarin (warfarin 5 mg Tab) TAKE 1 TABLET DAILY OR DIRECTED BY MEDICATION MANAGEMENT CLINIC. Refills: 3. Pharmacy Information: [facility] Day Comment: PATIENT EDUCATION INFORMATION Instructions: [place], [place] DISCHARGE INSTRUCTIONS Diet: ? Resume pre-procedure diet. ? Increase water intake the next 2 days to flush dye out of the body. Activity: ? Limit activity today. Do not operate a vehicle, machinery or power tools. ? NO LIFTING OVER 10 POUNDS (a gallon of milk weighs 8 pounds) for 3 days. ? Limit climbing stairs, bending, squatting and stooping for 3 days. ? May resume driving in 24 hours. ? Let pain/discomfort guide your activity. If you are having pain, stop. Medications: ? Resume pre-procedure medication, unless otherwise directed. ? Hold the following medications for 48 hours post procedure: Actoplus Met Glucophage Glucophage XR Glucovance Avandamet Fortamet Apo-metformin Glycon Eliu-metformin Glumetza Janumet Metaglip Riomet Glycomet *Minimal pain, soreness and/or discomfort is expected. *You may take OTC non-steroidal anti-inflammatory to manage discomfort, unless contraindicated. If pain is not controlled with the above medications, contact your physician. Wound Care: ? Do not remove dressing for 24 hours unless it becomes saturated, then replace. ? Keep site clean and dry; inspect site daily. ? May shower 24 hours after the procedure. Clean site with soap and water. Pat dry and apply band aid. No tub baths, swimming or hot tubs for 3 days. ? Notify Physician if excessive bleeding, signs/symptoms of infection (warmth at site, fever, redness) or excessive pain at site. Post Procedure: ? Soreness and tenderness to the site can last up to one week. ? Bruising may occur to groin. ? Keep follow-up appointment. ? No smoking f (more content not included)... Normal [facility] Inpatient Patient Summary [place] [id number] Patient Discharge Instructions PERSON INFORMATION Name: EUGENIA GIL Date of : 1950 Current Date: 04/17/2024 07:44:45 PHYSICIANS Admitting Physician: Aditya Nino MD. Primary Care Physician: Cortez Degroot MD PCP Comment: Discharge Diagnosis: Condition at Discharge: EUGENIA GIL has been given the following list of follow-up instructions, prescriptions, and patient education materials: PATIENT FOLLOW-UP INFORMATION Diet: Discharge Activity: Discharge Restrictions: Wound Care Instructions: Remove Your Dressing In Days Call Your Doctor For: IF UNABLE TO CONTACT YOUR PHYSICIAN AND YOU FEEL IT IS AN EMERGENCY, GO TO THE NEAREST EMERGENCY ROOM OR CALL 911 Home Treatment: Devices/Equipment: Special Services: Additional Instructions: Primary Care Physician to provide the following pending test results: None Follow up: In the event that this physician does not participate in your insurance network, please consult with your insurance company to find a nearby participating provider. Type Location Start [facility] Medicare Wellness Subsequent [facility] 05/11/2024 1:00 PM 05/11/2024 2:00 PM Confirmed FM Open [facility] 05/11/2024 2:00 PM 05/11/2024 2:15 PM Confirmed URO Nurse Visit [facility] 05/12/2024 1:00 PM 05/12/2024 1:15 PM Confirmed Comment: KANDICE Bro JAMES D, have received the attached patient education materials/instructions and have verbalized understanding: Patient Signature Date Clinican/Nurse Signature ___ Date HERE ARE THE MEDICATION CHANGES THAT OCCURRED DURING YOUR HOSPITAL STAY Medications to Continue with No Changes Other Medications oxybutynin (oxybutynin 5 mg Tab) 1 tab po q 6 hrs PRN bladder spasms/leaking around hinton, up to TID; as needed for urinary discomfort. Refills: 3. Last Dose: ___Next Dose: ___ tamsulosin (tamsulosin 0.4 mg Cap) 1 Capsules By Mouth 2 times a day for 30 Days. Refills: 11. Last Dose: ___Next Dose: ___ warfarin (warfarin 5 mg Tab) TAKE 1 TABLET DAILY OR DIRECTED BY MEDICATION MANAGEMENT CLINIC. Refills: 3. Last Dose: ___Next Dose: ___ Comment: MEDICATION LIST PROVIDED FOR YOU IS A LIST OF YOUR CURRENT MEDICATIONS. PLEASE CARRY THIS WITH YOU AT ALL TIMES. oxybutynin (oxybutynin 5 mg Tab) 1 tab po q 6 hrs PRN bladder spasms/leaking around hinton, up to TID; as needed for urinary discomfort. Refills: 3. tamsulosin (tamsulosin 0.4 mg Cap) 1 Capsules By Mouth 2 times a day for 30 Days. Refills: 11. warfarin (warfarin 5 mg Tab) TAKE 1 TABLET DAILY OR DIRECTED BY MEDICATION MANAGEMENT CLINIC. Refills: 3. Pharmacy Information: [facility] Day Comment: PATIENT EDUCATION INFORMATION Instructions: [place], [place] DISCHARGE INSTRUCTIONS Diet: ? Resume pre-procedure diet. ? Increase water intake the next 2 days to flush dye out of the body. Activity: ? Limit activity today. Do not operate a vehicle, machinery or power tools. ? NO LIFTING OVER 10 POUNDS (a gallon of milk weighs 8 pounds) for 3 days. ? Limit climbing stairs, bending, squatting and stooping for 3 days. ? May resume driving in 24 hours. ? Let pain/discomfort guide your activity. If you are having pain, stop. Medications: ? Resume pre-procedure medication, unless otherwise directed. ? Hold the following medications for 48 hours post procedure: Actoplus Met Glucophage Glucophage XR Glucovance Avandamet Fortamet Apo-metformin Glycon Eliu-metformin Glumetza Janumet Metaglip Riomet Glycomet *Minimal pain, soreness and/or discomfort is expected. *You may take OTC non-steroidal anti-inflammatory to manage discomfort, unless contraindicated. If pain is not controlled with the above medications, contact your physician. Wound Care: ? Do not remove dressing for 24 hours unless it becomes saturated, then replace. ? Keep site clean and dry; inspect site daily. ? May shower 24 hours after the procedure. Clean site with soap and water. Pat dry and apply band aid. No tub baths, swimming or hot tubs for 3 days. ? Notify Physician if excessive bleeding, signs/symptoms of infection (warmth at site, fever, redness) or excessive pain at site. Post Procedure: ? Soreness and tenderness to the site can last up to one week. ? Bruising may occur to groin. ? Keep follow-up appointment. ? No smoking for 24 hours as it increases the risk of developing blood clots. ? If you are interested in smoking cessation, contact [facility] at [phone], ext. [phone]. ? In the event you are unable to reach your physician, please (more content not included)... Normal [facility] PT & PTTon 04-17-2024 aPTT Coag (PPP) [Time] 35.1 second(s) Normal 25.1-36.5 [facility] Comment on above: Order Comment: if on Coumadin. Draw day of procedure and notify MD if abnormal Result Comment: Para meter 15 days - 4 weeks 1 - 5 months 6 - 11 months 1 - 5 years 6 - 10 years 11 - 17 years PTT Mean: 35.4 (27.6-45.6) Mean: 33.5 (24.8-40.7) Mean: 32.4 (25.1-40.7) Mean: 31.6 (24.0-39.2) Mean: 31.6 (26.9-38.7) Mean: 31.0 (24.6-38.4) Pediatric Reference ranges were obtained from a study by Alexis Hernandez et al. prepared from 1437 samples obtained at 7 different centers using the same coagulation reagent and instrumentation as [facility]. Currently there are no coagulation studies available worldwide for children to 14 days, and no normal ranges. Heparin therapeutic range (represented by Anti-Factor Xa activity of 0.2 - 0.4 U/mL) corresponds to PTT of 56.6 - 109.0 sec. Performed By: #### 1 [id number] ####[facility] [id number] [place] [address] INR Coag (PPP) [Relative time] 1.04 {INR} Invalid Interpretation Code [facility] Comment on above: Order Comment: if on Coumadin. Draw day of procedure and notify MD if abnormal Result Comment: INR results are specifically intended to assess patients stabilized on long-term Anticoagulation therapy suggested INR?s ?Less Intensive Anticoagulation? 2.0 ? 3.0 Conventional Range 3.0 ? 4.5 Performed By: #### 1 [id number] ####[facility] [id number] [place] [address] PT Coag (PPP) [Time] 11.7 second(s) Normal 9.4-12.5 [facility] Comment on above: Order Comment: if on Coumadin. Draw day of procedure and notify MD if abnormal Result Comment: 15 d ays - 4 weeks 1 - 5 months 6 -11 months 1-5 years 6-10 years 11 -17 years Mean: 11.2 (9.5-12.6) Mean: 11.0 (9.7-12.8) Mean: 11.0 (9.8-13.0) Mean: 11.3 (9.9-13.4) Mean: 11.7 (10.0-14.6) Mean: 11.8 (10.0 - 14.1) Pediatric Reference ranges were obtained from a study by Alexis Hernandez et al. prepared from 1437 samples obtained at 7 different centers using the same coagulation reagent and instrumentation as [facility]. Currently there are no coagulation studies available worldwide for children to 14 days, and no normal ranges. Performed By: #### 1 [id number] ####[facility] [address] [place] [address] Patient Education - Texton 0 04-17-2024 Patient Education - Text [place], [place] DISCHARGE INSTRUCTIONS Diet: ? Resume pre-procedure diet. ? Increase water intake the next 2 days to flush dye out of the body. Activity: ? Limit activity today. Do not operate a vehicle, machinery or power tools. ? NO LIFTING OVER 10 POUNDS (a gallon of milk weighs 8 pounds) for 3 days. ? Limit climbing stairs, bending, squatting and stooping for 3 days. ? May resume driving in 24 hours. ? Let pain/discomfort guide your activity. If you are having pain, stop. Medications: ? Resume pre-procedure medication, unless otherwise directed. ? Hold the following medications for 48 hours post procedure: Actoplus Met Glucophage Glucophage XR Glucovance Avandamet Fortamet Apo-metformin Glycon Eliu-metformin Glumetza Janumet Metaglip Riomet Glycomet *Minimal pain, soreness and/or discomfort is expected. *You may take OTC non-steroidal anti-inflammatory to manage discomfort, unless contraindicated. If pain is not controlled with the above medications, contact your physician. Wound Care: ? Do not remove dressing for 24 hours unless it becomes saturated, then replace. ? Keep site clean and dry; inspect site daily. ? May shower 24 hours after the procedure. Clean site with soap and water. Pat dry and apply band aid. No tub baths, swimming or hot tubs for 3 days. ? Notify Physician if excessive bleeding, signs/symptoms of infection (warmth at site, fever, redness) or excessive pain at site. Post Procedure: ? Soreness and tenderness to the site can last up to one week. ? Bruising may occur to groin. ? Keep follow-up appointment. ? No smoking for 24 hours as it increases the risk of developing blood clots. ? If you are interested in smoking cessation, contact [facility] at [phone], ext. [phone]. ? In the event you are unable to reach your physician, please call [facility] at [phone] and the heel coverer machine operator will assist you. Discharging Nurse Physician Date/Time Patient or Responsible Alliance Party Revised 07-02, 03-03, 12-07, 11-08 Normal [facility] Patient Education - Text [place], [place] DISCHARGE INSTRUCTIONS Diet: ? Resume pre-procedure diet. ? Increase water intake the next 2 days to flush dye out of the body. Activity: ? Limit activity today. Do not operate a vehicle, machinery or power tools. ? NO LIFTING OVER 10 POUNDS (a gallon of milk weighs 8 pounds) for 3 days. ? Limit climbing stairs, bending, squatting and stooping for 3 days. ? May resume driving in 24 hours. ? Let pain/discomfort guide your activity. If you are having pain, stop. Medications: ? Resume pre-procedure medication, unless otherwise directed. ? Hold the following medications for 48 hours post procedure: Actoplus Met Glucophage Glucophage XR Glucovance Avandamet Fortamet Apo-metformin Glycon Eliu-metformin Glumetza Janumet Metaglip Riomet Glycomet *Minimal pain, soreness and/or discomfort is expected. *You may take OTC non-steroidal anti-inflammatory to manage discomfort, unless contraindicated. If pain is not controlled with the above medications, contact your physician. Wound Care: ? Do not remove dressing for 24 hours unless it becomes saturated, then replace. ? Keep site clean and dry; inspect site daily. ? May shower 24 hours after the procedure. Clean site with soap and water. Pat dry and apply band aid. No tub baths, swimming or hot tubs for 3 days. ? Notify Physician if excessive bleeding, signs/symptoms of infection (warmth at site, fever, redness) or excessive pain at site. Post Procedure: ? Soreness and tenderness to the site can last up to one week. ? Bruising may occur to groin. ? Keep follow-up appointment. ? No smoking for 24 hours as it increases the risk of developing blood clots. ? If you are interested in smoking cessation, contact [facility] at [phone], ext. [phone]. ? In the event you are unable to reach your physician, [facility] at [phone] and the heel coverer machine operator will assist you. Discharging Nurse Physician Date/Time Patient or Responsible Alliance Party Revised 07-02, 03-03, 12-07, 11-08 Normal [facility] Patient Educationon 04-14-20 24 Patient Education Urology Benign Prostatic Hyperplasia Benign prostatic hyperplasia (BPH) is an enlarged prostate gland that is caused by the normal aging process. The prostate may get bigger as a man gets older. The condition is not caused by cancer. The prostate is a walnut-sized gland that is involved in the production of semen. It is located in front of the rectum and below the bladder. The bladder stores urine. The urethra carries stored urine out of the body. An enlarged prostate can press on the urethra. This can make it harder to pass urine. The buildup of urine in the bladder can cause infection. Back pressure and infection may progress to bladder damage and kidney (renal) failure. What are the causes? This condition is part of the normal aging process. However, not all men develop problems from this condition. If the prostate enlarges away from the urethra, urine flow will not be blocked. If it enlarges toward the urethra and compresses it, there will be problems passing urine. What increases the risk? This condition is more likely to develop in men older than 50 years. What are the signs or symptoms? Symptoms of this condition include: ? Getting up often during the night to urinate. ? Needing to urinate frequently during the day. ? Difficulty starting urine flow. ? Decrease in size and strength of your urine stream. ? Leaking (dribbling) after urinating. ? Inability to pass urine. This needs immediate treatment. ? Inability to completely empty your bladder. ? Pain when you pass urine. This is more common if there is also an infection. ? Urinary tract infection (UTI). How is this diagnosed? This condition is diagnosed based on your medical history, a physical exam, and your symptoms. Tests will also be done, such as: ? A post-void bladder scan. This measures any amount of urine that may remain in your bladder after you finish urinating. ? A digital rectal exam. In a rectal exam, your health care provider checks your prostate by putting a lubricated, gloved finger into your rectum to feel the back of your prostate gland. This exam detects the size of your gland and any abnormal lumps or growths. ? An exam of your urine (urinalysis). ? A prostate specific antigen (PSA) screening. This is a blood test used to screen for prostate cancer. ? An ultrasound. This test uses sound waves to electronically produce a picture of your prostate gland. Your health care provider may refer you to a specialist in kidney and prostate diseases (urologist). How is this treated? Once symptoms begin, your health care provider will monitor your condition (active surveillance or watchful waiting). Treatment for this condition will depend on the severity of your condition. Treatment may include: ? Observation and yearly exams. This may be the only treatment needed if your condition and symptoms are mild. ? Medicines to relieve your symptoms, including: ? Medicines to shrink the prostate. ? Medicines to relax the muscle of the prostate. ? Surgery in severe cases. Surgery may include: ? Prostatectomy. In this procedure, the prostate tissue is removed completely through an open incision or with a laparoscope or robotics. ? Transurethral resection of the prostate (TURP). In this procedure, a tool is inserted through the opening at the tip of the penis (urethra). It is used to cut away tissue of the inner core of the prostate. The pieces are removed through the same opening of the penis. This removes the blockage. ? Transurethral incision (TUIP). In this procedure, small cuts are made in the prostate. This lessens the prostate's pressure on the urethra. ? Transurethral microwave thermotherapy (TUMT). This procedure uses microwaves to create heat. The heat destroys and removes a small amount of prostate tissue. ? Transurethral needle ablation (TUNA). This procedure uses radio frequencies to destroy and remove a small amount of prostate tissue. ? Interstitial laser coagulation (ILC). This procedure uses a laser to destroy and remove a small amount of prostate tissue. ? Transurethral electrovaporization (TUVP). This procedure uses electrodes to destroy and remove a small amount of prostate tissue. ? Prostatic urethral lift. This procedure inserts an implant to push the lobes of the prostate away from the urethra. Follow these instructions at home: ? Take qaii-ezo-nyfbiny and prescription medicines only as told by your health care provider. ? Monitor your symptoms for any changes. Contact your health care provider with any changes. ? Avoid drinking large amounts of liquid before going to bed or out in public. ? Avoid or reduce how much caffeine or alcohol you drink. ? Give yourself time when you urinate. ? Keep all follow-up visits. This is important. Contact a health care provider if: ? You have unexplained back pain. ? Your symptoms do not get better with treatment. ? You develop side effects from the medicine (more content not included)... Normal [facility] Urology Office/Clinic Noteon 04-14-2024 Urology Office/Clinic Note Chief Complaint 5 week cath change w/ Rae HPI Staff Patient here today for 5 week cath change w/ Rae History of Present Illness I have reviewed and verified the staff HPI to be accurate for this encounter. Portions of this record may have been created with voice recognition artificial intelligence software, specifically [employer], goOutMap and or [id number]. Substitutions may have occurred due to the inherent limitations of voice recognition and artificial intelligence software. Review of Systems PHQ Score Initial Depression Screen Score: 0 SCORE Physical Exam Vitals & Measurements T: 36.7 ?C(Temporal Artery) HR: 97(Peripheral) RR: 16 BP: 125/77 HT: 71 in HT: 180 cm WT: 154.3 kg WT: 339.46 lb BMI: 47.62 General: Well developed, well nourished, in no acute distress. Genitourinary: Flank Pain: none. Bladder: nonpalpable. Penis: normal shaft, normal glans. Assessment/Plan 1. Bladder spasms (N32.89: Other specified disorders of bladder) Patient notes that he still intermittently has bleeding and leaking around the catheter as well as bladder spasms. He is often able to alleviate these discomforts with position change or repositioning catheter. However, he does sometimes still use oxybutynin 5 mg as needed. He is tolerating this well without side effects. He is requesting refill at this time. Refill sent to pharmacy. 2. BPH with urinary obstruction (N40.1: Benign prostatic hyperplasia with lower urinary tract symptoms) S/p cysto 09/03/23 prostatic urethra is obstructed, median lobe. [1] Patient is a candidate for TURP, still working on scheduling with [facility] due to cardiac changes. He is anticoagulated on warfarin, history of DVT. He has had stress test x 2 with inconclusive results. He notes that he is scheduled for cardiac cath next week. Will update us regarding cardiac status some possibility of scheduling TURP 3. Urinary retention (R33.9: Retention of urine, unspecified) Pt presented to [facility] ER 07/07/23 for retention. Pt was [...] -18Fr catheter was placed at that time [2] Indwelling [place] catheter changed in office today. Slight difficulty getting through prostate but patient tolerated procedure well. See ad hoc. -f/u 4 wks for cath change Ordered: Body Mass Index (BMI) documented 3008F Current tobacco non-user 1036F Depression Screening Negative 3352F Influenza immunization status assessed 1030F Medication list documented in medical record 1159F Most recent diastolic blood pressure <80 mm Hg 3078F Patient screen for fall risk: no falls in last year or 1 fall with no injury in last year 1101F Review of all meds by a prescribing practitioner or clinical pharmacist documented in EHR 1160F Systolic BP <130 mm Hg (Most Recent) 3074F 4. 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 Patient states that he is scheduled for cardiac cath next week. Other obstructive and reflux uropathy (N13.8: Other obstructive and reflux uropathy) Orders: oxybutynin, See Instructions, PRN for urinary discomfort, 1 tab po q 6 hrs PRN bladder spasms/leaking around hinton, up to TID, # 30 tab(s), Refills(s) 3, [facility]acy: [id number], 180, cm, 10/08/23 12:12:00 EST, Height/Length Dosing, 123, kg, 10/08/23 12:12:0... oxybutynin, See Instructions, PRN for urinary discomfort, 1 tab po q 6 hrs PRN bladder spasms/leaking around h[place], up to TID, # 30 tab(s), Refills(s) 3, Pharmacy: [id number], 180, cm, 04/14/24 12:37:00 EDT, Height/Length Dosing, 154.3, kg, 04/14/24 12:37... Follow-up With When Contact Information Orzech ELEAZAR LEE, Rae X, FAM, URL Additional Instructions: or another BELA for cath change, 4 wks Patient Education Benign Prostatic Hyperplasia Urinary Incontinence Acute Urinary Retention, Male Problem List/Past Medical History Ongoing Abnormal EKG Anticoagulated BPH with urinary obstruction Elevated PSA Former smoker Hx of deep venous thrombosis Knee pain SOB (shortness of breath) on exertion Urinary retention Historical No qualifying data Procedure/Surgical History Tonsillectomy. Medications oxybutynin 5 mg Tab, See Instructions, PRN, 3 refills tamsulosin 0.4 mg Cap, 0.4 mg= 1 cap(s), Oral, BID, 11 refills warfarin 5 mg Tab, See Instructions Allergies No Known Allergies Social History Alcohol Current, Beer, 1-2 times per (more content not included)... Normal [facility] Comment on above: Result Comment: Elec tronically Signed By: ELEAZAR Luis APRN, Rae Schmidt\.br\Date and Time Signed: 04/14/24 13:24 EDT Insurance Correspondenceon 0 04-08-2024 Insurance Correspondence [id number]. 00TIFF Normal [facility] Progress Note-Physicianon Progress Note-Physician [id number]. 00TIFF Normal [facility] BMPon 04-07-2024 Anion gap [Moles/Vol] 13 mmol/L Normal 6-16 [facility] Comment on above: Performed By: #### 2 [id number] ####[facility] [address] [place] [address] Calcium [Mass/Vol] 9.6 mg/dL Normal 8.9-11.1 [facility] Comment on above: Performed By: #### 2 347760, [id number], [id number] ####[facility] [address] [place] [address] Chloride [Moles/Vol] 102 mmol/L Normal 101-111 [facility] Comment on above: Performed By: #### 2 764654, [id number], 3802306 ####[facility] [address] [place] [address] CO2 [Moles/Vol] 26 mmol/L Normal 21- [facility] Comment on above: Performed By: #### 2 702673, [id number], 7701355 ####[facility] [address] [place] [address] Creatinine [Mass/Vol] 1.2 mg/dL Normal 0.5-1.3 [facility] Comment on above: Performed By: #### 2 122518, [id number], 8633635 ####[facility] [address] [place] [address] Glucose [Mass/Vol] 123 mg/dL Normal 55-199 [facility] Comment on above: Performed By: #### 2 871001, [id number], 0006823 ####[facility] [address] [place] [address] Potassium [Moles/Vol] 4.5 mmol/L Normal 3.5-5.3 [facility] Comment on above: Performed By: #### 2 048664, [id number], 4174263 ####[facility] [address] [place] [address] Sodium [Moles/Vol] 136 mmol/L Normal 135-145 [facility] Comment on above: Performed By: #### 2 088775, [id number], 3745255 ####[facility] [address] [place] [address] Urea nitrogen [Mass/Vol] 18 mg/dL Normal 5-21 [facility] Comment on above: Performed By: #### 2 627258, 66972469, 1304265 ####[facility] [address] [place] [address] Urea nitrogen/Creatinine [Mass ratio] 15 No Units Normal 10-20 [facility] Comment on above: Performed By: #### 2 541457, [id number], 2557467 ####[facility] [address] [place] [address] CBC w/ Auto Diffon 4 Basophils/100 WBC (Bld) 1.0 % Normal 0.0-2.0 [facility] Comment on above: Performed By: #### 2 046449, [id number], 0288560 ####[facility] [address] [place] [address] Basophils/Leukocytes Auto (Bld) [Pure # fraction] 0.1 E9/L Normal 0.0-0.2 [facility] Comment on above: Performed By: #### 2 261025, [id number], 2440130 ####[address] [address] Eosinophils (Bld) [#/Vol] 0.2 E9/L Normal 0.0-0.5 [facility] Comment on above: Performed By: #### 2 670630, 72978713, 6088275 ####[address] [address] Eosinophils/100 WBC (Bld) 2.2 % Normal 0.0-8.0 [facility] Comment on above: Performed By: #### 2 237621, 40679029, 6029555 ####[address] [address] Erythrocyte distribution width (RBC) [Ratio] 17.1 % High 10.9-14.2 [facility] Comment on above: Performed By: #### 2 181337, 17335707, 0309644 ####[address] [address] Hematocrit (Bld) [Volume fraction] 45.3 % Normal 37.7-49.0 [facility] Comment on above: Performed By: #### 2 614827, 82549646, 5483401 ####[address] [address] Hemoglobin (Bld) [Mass/Vol] 14.5 g/dL Normal 13.5-17.5 [facility] Comment on above: Performed By: #### 2 292722, 98212252, 3303677 ####[address] [address] Lymphocytes (Bld) [#/Vol] 1.2 E9/L Normal 1.0-4.0 [facility] Comment on above: Performed By: #### 2 996841, 52386988, 6303822 ####[address] [address] Lymphocytes/100 WBC (Bld) 16.1 % Normal 14.0-50.0 [facility] Comment on above: Performed By: #### 2 985155, 42308023, 1643920 ####[address] [address] MCH (RBC) [Entitic mass] 25.7 pg Low 27.0-34.0 [facility] Comment on above: Performed By: #### 2 861677, 19964782, 3974880 ####[address] [address] MCHC (RBC) [Mass/Vol] 32.0 g/dL Normal 31.4-36.0 [facility] Comment on above: Performed By: #### 2 693326, 02343915, 3409053 ####[address] [address] MCV (RBC) [Entitic vol] 80.4 fL Normal 80.0-100.0 [facility] Comment on above: Performed By: #### 2 807500, 19217477, 4972183 ####[address] [address] Monocytes (Bld) [#/Vol] 0.8 E9/L Normal 0.2-1.0 [facility] Comment on above: Performed By: #### 2 314060, 00070439, 9807628 ####[address] [address] Neutrophils (Bld) [#/Vol] 5.2 E9/L Normal 2.0-7.5 [facility] Comment on above: Performed By: #### 2 078173, 29730216, 9785638 ####[address] [address] Neutrophils/100 WBC (Bld) 70.3 % Normal 36.0-75.0 [facility] Comment on above: Performed By: #### 2 786280, 32307154, 6686290 ####[facility] [address] [place] [address] Platelet mean volume (Bld) [Entitic vol] 7.9 fL Normal 6.4-10.8 [facility] Comment on above: Performed By: #### 2 850246, 97391137, 6426153 ####[address] [address] Platelets (Bld) [#/Vol] 242.0 E9/L Normal 150.0-500.0 [facility] Comment on above: Performed By: #### 2 382173, 53646589, 3681116 ####[address] [address] RBC (Bld) [#/Vol] 5.6 E12/L Normal 4.3-5.9 [facility] Comment on above: Performed By: #### 2 083675, 43966476, 4696343 ####[facility] [address] [place] [address] WBC corrected for nucl RBC Auto (Bld) [#/Vol] 7.4 E9/L Normal 4.0-11.0 [facility] Comment on above: Performed By: #### 2 987444, 00509269, 5158775 ####[facility] [address] [place] [address] CHEMISTRYOrdered By: SYSTEM SYSTEM on 04-07-2024 Anion gap [Moles/Vol] 13 mmol/L Normal 6 - 16 mEq/L R emisol Chem Calcium [Mass/Vol] 9.6 mg/dL Normal 8.9 - 11.1 mg/dL Rem[facility] Chem Chloride [Moles/Vol] 102 mmol/L Normal 101 - 111 mmol/ L [facility] CO2 [Moles/Vol] 26 mmol/L Normal 21 - 31 mmol/L Remis ol Chem Creatinine [Mass/Vol] 1.2 mg/dL Normal 0.5 - 1.3 mg/d L Remisol Chem eGFR 64 mL/min/1.73 m2 Normal >=59mL/min /1.73 m2 Remisol Chem Glucose [Mass/Vol] 123 mg/dL Normal 55 - 199 mg/dL Re misol Chem Potassium [Moles/Vol] 4.5 mmol/L Normal 3.5 - 5.3 mmol /L [facility] Sodium [Moles/Vol] 136 mmol/L Normal 135 - 145 mmol/L [facility] Urea nitrogen [Mass/Vol] 18 mg/dL Normal 5 - 21 mg/dL [facility] Urea nitrogen/Creatinine [Mass ratio] 15 mg/mg Normal 10 - 20 Rem[facility] Chem Consent for Treatmenton 03-25 Consent for Treatment [id number]#1.0 0TIFF Normal [facility] Consent for Treatment [id number]#1.0 0TIFF [facility] HEMATOLOGYOrdered By: SYSTEM SYSTEM on 04-07-2024 Basophils/100 WBC (Bld) 1.0 % Normal 0.0 - 2.0 % Remisol Heme Basophils/Leukocytes Auto (Bld) [Pure # fraction] 0.1 E9/L Normal 0.0 - 0.2 E9/L [facility]e Eosinophils (Bld) [#/Vol] 0.2 E9/L Normal 0.0 - 0.5 E9/L Rem[facility]e Eosinophils/100 WBC (Bld) 2.2 % Normal 0.0 - 8.0 % Rem[facility] Heme Erythrocyte distribution width (RBC) [Ratio] 17.1 % High 10.9 - 14.2 % [facility] Hematocrit (Bld) [Volume fraction] 45.3 % Normal 37.7 - 49.0 % Rem[facility]e Hemoglobin (Bld) [Mass/Vol] 14.5 g/dL Normal 13.5 - 17.5 gm/dL Rem[facility] Heme Lymphocytes (Bld) [#/Vol] 1.2 E9/L Normal 1.0 - 4.0 E9/L Rem[facility] Heme Lymphocytes/100 WBC (Bld) 16.1 % Normal 14.0 - 50.0 % Remisol Heme MCH (RBC) [Entitic mass] 25.7 pg Low 27.0 - 34.0 pg Remisol Heme MCHC (RBC) [Mass/Vol] 32.0 g/dL Normal 31.4 - 36.0 gm/dL Remisol Heme MCV (RBC) [Entitic vol] 80.4 fL Normal 80.0 - 100.0 fL Rem[facility]e Monocytes (Bld) [#/Vol] 0.8 E9/L Normal 0.2 - 1.0 E9/L Rem[facility]e Monocytes/100 WBC (Bld) 10.4 % Normal 4.0 - 14.0 % Rem[facility] Heme Neutrophils (Bld) [#/Vol] 5.2 E9/L Normal 2.0 - 7.5 E9/L Remisol Heme Neutrophils/100 WBC (Bld) 70.3 % Normal 36.0 - 75.0 % Rem[facility] Heme Platelet mean volume (Bld) [Entitic vol] 7.9 fL Normal 6.4 - 10.8 fL Rem[facility] Heme Platelets (Bld) [#/Vol] 242.0 E9/L Normal 150.0 - 500.0 E9/L Remisol Heme RBC (Bld) [#/Vol] 5.6 E12/L Normal 4.3 - 5.9 E12/L Re misol Heme WBC corrected for nucl RBC Auto (Bld) [#/Vol] 7.4 E9/L Normal 4.0 - 11.0 E9/L Remisol Heme Heart and Vascular Office/[facility] Noteon 04-07-2024 Heart and Vascular Office/Clinic Note Chief Complaint 3 month follow up History of Present Illness Patient is a 73-year-old male with past medical history of intermittent chest pains and dyspnea on exertion. Patient comes in for 3-month follow-up. Was last seen by Dr. Nino and at that time he ordered stress test for patient for cardiac clearance. Unfortunately initial nuc med stress test was inconclusive due to large body habitus and inconsistent processing. So patient was then ordered stress echo. However, this was also inconclusive as patient had nondiagnostic adequate treadmill echocardiogram and unable to interpret due to motion artifact and poor echo windows. Patient reports he has had persistent shortness of breath with exertion, but otherwise feels fine. Patient denies chest pain, lightheadedness, heart palpitations, swelling in extremities Review of Systems PHQ Score Initial Depression Screen Score: 0 SCORE ROS - Provider Constitutional: no fever, no chills, no sweats, no weakness Respiratory: yes shortness of breath with exertion, no cough Cardiovascular: no chest pain Neuro: no dizziness. no loss of consciousness Physical Exam Vitals & Measurements HR: 83(Peripheral) BP: 130/84 HT: 71 in HT: 180 cm WT: 157.2 kg WT: 345.84 lb BMI: 48.52 General: alert, no acute distress Neck: Supple, noJVD nocarotid bruit Cardiovascular: regular rate and rhythm, no murmur normal peripheral perfusion Respiratory: Lungs CTAB, respirations non labored Extremities: no edema left lower extremity. no edema right lower extremity Neurological: oriented x 4, LOC appropriate for age, speech normal Skin: Warm, dry, intact- no rash or concerning lesions Cardiac Diagnostics (02/06/2024 09:16 EDT EC Stress Echo Complete w/ Contrast) Interpretation Summary Ejection Fraction = 60-65%. Nondiagnostic exercise EKG due to severe motion artifact. Patient unable to keep up with treadmill so test was aborted. Peak imaging nondiagnostic due to very poor echo windows despite Definity agent. Nondiagnostic adequate treadmill echocardiogram. EKG and echocardiogram are uninterpretable due to motion artifact and poor echo windows. Patient unable to keep up with a treadmill so test was aborted. Recommend clinical correlation alternative mode of testing if clinically indicated. No anginal symptoms or arrhythmias noted for exercise obtained. [1] (12/19/2023 08:56 EST Echo Transthoracic Complete) Interpretation Summary Ejection Fraction = 60-65%. Normal LV and RV. No significant valve disease. Normal estimated PA pressure. Impaired diastolic relaxation. Dilated aortic root and ascending aorta. [2] (12/20/2023 15:56 EST NM Myocardial Spect Multi Stress) FINDINGS: Uptake of the tracer was generally homogeneous with no identifiable ischemia or infarction. The TID ratio was elevated at 1.32, however, processing appeared to be different between the rest and stress images and visually there is no increased left ventricular size with stress. CONCLUSIONS: Only fair quality stress imaging due to large body habitus and inconsistent processing. Cannot exclude significant finding. Clinical correlation suggested. Consider alternate imaging modality. [3] Assessment/Plan Pre-op exam (Z01.818: Encounter for other preprocedural examination) Unfortunately patient has had 2 stress test that are inconclusive. So unable to rule out ischemia thus far. At this point the next step would be to perform a cardiac cath to evaluate heart. Patient agreeable to this testing and will order at this time. Ordered: ECG 12 Lead Adult Follow-up after cardiac cath Patient was discussed with Dr. Nino and cath suggestion was based on his recommendation Portions of this record may have been created with voice recognition artificial intelligence software, specifically [employer], goOutMap and or [id number]. Substitutions may have occurred due to the inherent limitations of voice recognition and artificial intelligence software. Follow-up No qualifying data available Problem List/Past Medical History Ongoing Abnormal EKG Anticoagulated BPH with urinary obstruction Elevated PSA Former smoker Hx of deep venous thrombosis Knee pain SOB (shortness of breath) on exertion Urinary retention Historical No qualifying data Procedure/Surgical History Tonsillectomy. Medications oxybutynin 5 mg Tab, See Instructions, PRN, 3 refills tamsulosin 0.4 mg Cap, 0.4 mg= 1 cap(s), Oral, BID, 11 refills warfarin 5 mg Tab, See Instructions Allergies No Known Allergies Social History Alcohol Current, Beer, 1-2 times per year, Previous treatment: None. Alcohol use interferes with work or home: No. Drinks more than intended: No. Others hurt by drinking: No. Ready to change: No. Household alcohol concerns: No., 12/13/2023 Tobacco Former smoker, quit more than 30 days ago Tobacco Use:. Never Smokeless Tobacco Use:. Cigarettes, Household tobacco co (more content not included)... Normal [facility] Comment on above: Result Comment: Elec tronically Signed By: Chelsey ODOM, Paul Perez\.br\Date and Time Signed: 04/07/24 14:52 EDT eGFRon 04-07-2024 eGFR 64 mL/min/1.73 m2 Normal >=59 [facility] Comment on above: Order Comment: Order added by Discern Expert. Performed By: #### 2 563365, [id number], [id number] ####[facility] [address] [place] [address] Physician Referralon 024 Physician Referral [id number]#1.0 0TIFF Normal [facility] Lab Reportson 03-30-2024 Lab Reports [id number]#1.0 0TIFF Normal [facility] Ambulatory Visit Summaryon 0 03-09-2024 Ambulatory Visit Summary EUGENIA GIL :1950 Visit Date:03/09/2024 Ambulatory Visit Instructions Your Diagnosis Abnormal EKG BMI 45.0-49.9, adult, Body mass index [BMI] 45.0-49.9, adult Class 3 severe obesity due to excess calories with body mass index (BMI) of 45.0 to 49.9 in adult Former smoker BPH with urinary obstruction Anticoagulated Hx of deep venous thrombosis Other obstructive and reflux uropathy Your Care Team Attending Physician - Cortez Degroot MD Primary Care Physician - Cortez Degroot MD This Is Your Medications List Contact prescribing physician if questions or concerns oxybutynin (oxybutynin 5 mg Tab) tamsulosin (tamsulosin 0.4 mg Cap) warfarin (warfarin 5 mg Tab) Discharge Vitals Temperature (Temporal Artery) 36.5 ?C Heart Rate (Peripheral) 88 Respiratory Rate 18 Blood Pressure 132/84 Height 180 cm Height 71 in Weight 156.0 kg Weight 343.2 lb BMI 48.15 What to do next Scheduled Follow-Up Appointments Saturday 1:00 PM EDT With: Where: [facility] Barb Normal [facility] Family Medicine Office/Clini c Noteon 03-09-2024 Family Medicine Office/Clinic Note HPI Staff Eugenia is a 73 year old male presenting for 2 month follow up YASIR needed testing to clear for TURP review results and clear for surgery Says had stress test wasn't thrilled with results so had him do the chemical test but hasn't heard how that came out yet. But was to do another treadmill and tech was sick so got pushed out questions/concerns: he doesn't know what he's here today Does have rash on right forearm if he scratches it , then it itches like crazy so he tries not to scratch it History of Present Illness - As per staff HPI. Review of Systems PHQ Score Initial Depression Screen Score: 0 SCORE Physical Exam Vitals & Measurements T: 36.5 ?C(Temporal Artery) HR: 88(Peripheral) RR: 18 BP: 132/84 SpO2: 96% HT: 71 in HT: 180 cm WT: 156.0 kg WT: 343.2 lb BMI: 48.15 General: alert, no acute distress ENMT: oral mucosa moist, Cardiovascular: regular rate and rhythm, normal peripheral perfusion Respiratory: Lungs CTA, respirations non labored Extremities: no deformity, no trauma Neurological: oriented x 4, LOC appropriate for age, CN II-XII intact, motor strength equal & normal bilaterally, speech normal Abdomen: Soft, Nontender, Non-distended, + BS Assessment/Plan 1. Abnormal EKG (R94.31: Abnormal electrocardiogram [ECG] [EKG]) - Meets with Cardiology for clearance. - If cleared pt will be getting a TERP - Follow up in 2 months Ordered: Body Mass Index (BMI) documented 3008F Current tobacco smoker 1034F Depression Screening Negative 3352F Influenza immunization status assessed 1030F Most recent diastolic blood pressure 80-89 mm Hg 3079F Patient screen for fall risk: no falls in last year or 1 fall with no injury in last year 1101F Systolic BP 130-139 mm Hg (Most Recent) 3075F 2. BMI 45.0-49.9, adult, (Z68.42: Body mass index [BMI] 45.0-49.9, adult) - BMI education given Body mass index [BMI] 45.0-49.9, adult Ordered: Body Mass Index (BMI) documented 3008F Current tobacco smoker 1034F Depression Screening Negative 3352F Influenza immunization status assessed 1030F Most recent diastolic blood pressure 80-89 mm Hg 3079F Patient screen for fall risk: no falls in last year or 1 fall with no injury in last year 1101F Systolic BP 130-139 mm Hg (Most Recent) 3075F 3. Class 3 severe obesity due to excess calories with body mass index (BMI) of 45.0 to 49.9 in adult (E66.01: Morbid (severe) obesity due to excess calories) Ordered: Body Mass Index (BMI) documented 3008F Current tobacco smoker 1034F Depression Screening Negative 3352F Influenza immunization status assessed 1030F Most recent diastolic blood pressure 80-89 mm Hg 3079F Patient screen for fall risk: no falls in last year or 1 fall with no injury in last year 1101F Systolic BP 130-139 mm Hg (Most Recent) 3075F 4. Former smoker (Z87.891: Personal history of nicotine dependence) Ordered: Body Mass Index (BMI) documented 3008F Current tobacco smoker 1034F Depression Screening Negative 3352F Influenza immunization status assessed 1030F Most recent diastolic blood pressure 80-89 mm Hg 3079F Patient screen for fall risk: no falls in last year or 1 fall with no injury in last year 1101F Systolic BP 130-139 mm Hg (Most Recent) 3075F 5. BPH with urinary obstruction (N40.1: Benign prostatic hyperplasia with lower urinary tract symptoms) - TERP when cleared Ordered: Body Mass Index (BMI) documented 3008F Current tobacco smoker 1034F Depression Screening Negative 3352F Influenza immunization status assessed 1030F Most recent diastolic blood pressure 80-89 mm Hg 3079F Patient screen for fall risk: no falls in last year or 1 fall with no injury in last year 1101F Systolic BP 130-139 mm Hg (Most Recent) 3075F 6. 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 Ordered: Body Mass Index (BMI) documented 3008F Current tobacco smoker 1034F Depression Screening Negative 3352F Influenza immunization status assessed 1030F Most recent diastolic blood pressure 80-89 mm Hg 3079F Patient screen for fall risk: no falls in last year or 1 fall with no injury in last year 1101F Systolic BP 130-139 mm Hg (Most Recent) 3075F 7. Hx of deep venous thrombosis (Z86.718: Personal history of other venous thrombosis and embolism) - Will need to hold meds at least 5 days before hand. - Pt will need to follow up with [facility] after he is cleared by Urology. Ordered: Body Mass Index (BMI) documented 3008F Current tobacco smoker 1034F Depression Screening Negative 3352F Influenza immunization status assessed 1030F Most recent diastolic blood pressure 80-89 mm Hg 3079F Patient screen for fall risk: no falls in last year or 1 fall with no injury in last year 1101F Systolic BP 130-139 mm Hg (Most Recent) 3075F Other obstructive and reflux uropathy (N13.8: Other obstructive and reflux uropathy) - As above. Follow-up No q (more content not included)... Normal [facility] Comment on above: Result Comment: Elec tronically Signed By: Cortez Degroot MD\.br\Date and Time Signed: 03/09/24 15:08 EDT Lab Reportson 02-13-2024 Lab Reports [id number]#1.0 0TIFF Normal [facility] Ambulatory Visit Summaryon 0 02-11-2024 Ambulatory Visit Summary EUGENIA GIL Mindy :1950 Visit Date:02/11/2024 Ambulatory Visit Instructions Your Care Team Attending Physician - Shahab PATTON MD Primary Care Physician - Cortez Degroot MD This Is Your Medications List oxybutynin (oxybutynin 5 mg Tab) tamsulosin (tamsulosin 0.4 mg Cap) warfarin What to do next Scheduled Follow-Up Appointments Saturday 1:15 PM EDT With: Cortez Degroot MD Where: [facility] Normal [address] [place] [address] [place] [address]- \.br\ Saturday 1:15 PM EDT \.br\ With: Mica GUERIN, Aditya Orta\.br\ Where: [facility]\.br\ Medications\.br\ What How Much When Instructions\.br \ Unchanged oxybutynin (oxybutynin 5 mg Tab) See instructions 1 tab po q 6 hrs PRN bladder spasms/ leaking around hinton, up to TID \.br\ Unchanged tamsulosin (tamsulosin 0.4 mg Cap) 1 Capsules By Mouth 2 times a day Duration: 30 Days\.br\ Unchanged warfarin 5 Milligram By Mouth Every other day alternate 2.5 mg with 5 mg tab \.br\ Allergies\.br\ No Known Allergies\.br\ Problems\.br\ Ongoing - Any problem that you are currently receiving treatment for.\.br\ Abnormal EKG\.br\ Anticoagulated\. br\ BPH with urinary obstruction\.br\ Elevated PSA\.br\ Encounter to establish care\.br\ Former smoker\.br\ Hx of deep venous thrombosis\.br\ Knee pain\.br\ Prostate cancer screening\.br\ SOB (shortness of breath) on exertion\.br\ Urinary retention\.br\ Patient Survey\.br\ You may receive a survey via text or e-mail asking about your office visit. Please share your experience with us by completing your survey. We appreciate your feedback and thank you for choosing us for your care.\.br\ \.br\ [facility] Stress EKG Tracingson 2023 Stress EKG Tracings [id number]#1.00 TIFF Normal [facility] Consent for Treatmenton 01-23 Consent for Treatment [id number] [id number]#1.0 0TIFF Normal [facility] Lab Reportson 01-07-2024 Lab Reports [id number]#1.0 0TIFF Normal [facility] Ambulatory Visit Summaryon 0 12-30-2023 Ambulatory Visit Summary EUGENIA GIL :1950 Visit Date:12/30/2023 Ambulatory Visit Instructions Your Diagnosis Abnormal EKG SOB (shortness of breath) on exertion Knee pain Your Care Team Attending Physician - Cortez Degroot MD Primary Care Physician - Cortez Degroot MD This Is Your Medications List oxybutynin (oxybutynin 5 mg Tab) tamsulosin (tamsulosin 0.4 mg Cap) warfarin Discharge Vitals Temperature (Temporal Artery) 36.9 ?C Heart Rate (Peripheral) 90 Respiratory Rate 18 Blood Pressure 150/86 Height 180 cm Height 71 in Weight 155.2 kg Weight 341.44 lb BMI 47.9 What to do next Scheduled Follow-Up Appointments Saturday 11:00 AM EST With: Where: [facility] Normal [address] [place] [address]- \.br\ Saturday 1:15 PM EDT \.br\ With: Mica GUERIN, Aditya Orta\.br\ Where: [facility]\.br\ Medications\.br\ What How Much When Instructions\.br \ Unchanged oxybutynin (oxybutynin 5 mg Tab) See instructions 1 tab po q 6 hrs PRN bladder spasms/ leaking around hinton, up to TID \.br\ Unchanged tamsulosin (tamsulosin 0.4 mg Cap) 1 Capsules By Mouth 2 times a day Duration: 30 Days\.br\ Unchanged warfarin 5 Milligram By Mouth Every other day alternate 2.5 mg with 5 mg tab \.br\ Allergies\.br\ No Known Allergies\.br\ Problems\.br\ Ongoing - Any problem that you are currently receiving treatment for.\.br\ Abnormal EKG\.br\ Anticoagulated\. br\ BPH with urinary obstruction\.br\ Elevated PSA\.br\ Encounter to establish care\.br\ Former smoker\.br\ Hx of deep venous thrombosis\.br\ Knee pain\.br\ Prostate cancer screening\.br\ SOB (shortness of breath) on exertion\.br\ Urinary retention\.br\ Patient Survey\.br\ You may receive a survey via text or e-mail asking about your office visit. Please share your experience with us by completing your survey. We appreciate your feedback and thank you for choosing us for your care.\.br\ Education Materials\.br\ Acute Knee Pain, Adult\.br\ Acute knee pain is sudden and may be caused by damage, swelling, or irritation of the muscles and tissues that support the knee. Pain may result from:\.br\ ? \.br\ A fall.\.br\ ? \.br\ An injury to the knee from twisting motions.\.br\ ? \.br\ A hit to the knee.\.br\ ? \.br\ Infection.\.br\ Acute knee pain may go away on its own with time and rest. If it does not, your health care provider may order tests to find the cause of the pain. These may include:\.br\ ? \.br\ Imaging tests, such as an X-ray, MRI, CT scan, or ultrasound.\.br\ ? \.br\ Joint aspiration. In this test, fluid is removed from the knee and evaluated.\.br\ ? \.br\ Arthroscopy. In this test, a lighted tube is inserted into the knee and an image is projected onto a TV screen.\.br\ ? \.br\ Biopsy. In this test, a sample of tissue is removed from the body and studied under a microscope.\.br\ Follow these instructions at home:\.br\ If you have a knee sleeve or brace:\.br\ \.br\ ? \.br\ Wear the knee sleeve or brace as told by your health care provider. Remove it only as told by your health care provider.\.br\ ? \.br\ Loosen it if your toes tingle, become numb, or turn cold and blue.\.br\ ? \.br\ Keep it clean.\.br\ ? \.br\ If the knee sleeve or brace is not waterproof:\.br\ ? \.br\ Do not let it get wet.\.br\ ? \.br\ Cover it with a watertight covering when you take a bath or shower.\.br\ Activity\.br\ ? \.br\ Rest your knee.\.br\ ? \.br\ Do not do things that cause pain or make pain worse.\.br\ ? \.br\ Avoid high-impact activities or exercises, such as running, jumping rope, or doing jumping jacks.\.br\ ? \.br\ Work with a physical therapist to make a safe exercise program, as recommended by your health care provider. Do exercises as told by your physical therapist.\.br\ Managing pain, stiffness, and swelling\.br\ \.br\ ? \.br\ If directed, put ice on the affected knee. To do this:\.br\ ? \.br\ If you have a removable knee sleeve or brace, remove it as told by your health care provider.\.br\ ? \.br\ Put ice in a plastic bag.\.br\ ? \.br\ Place a towel between your skin and the bag.\.br\ ? \.br\ Leave the ice on for 20 minutes, 2?3 times a day.\.br\ ? \.br\ Remove the ice if your skin turns bright red. This is very important. If you cannot feel pain, heat, or cold, you have a greater risk of damage to the area.\.br\ ? \.br\ If directed, use an elastic bandage to put pressure (compression) on your injured knee. This may control swelling, give support, and help with discomfort.\.br\ ? \.br\ Raise (elevate) your knee above the level of your heart while you are sitting or lying down.\.br\ ? \.br\ Sleep with a pillow under your knee.\.br\ General instructions\.br \ ? \.br\ Take cwur-wbk-gimhwty and prescription medicines only as told by your health care provider.\.br\ ? \.br\ Do not use any products that contain nicotine or tobacco, such as cigarettes, e-cigarettes, and chewing tobacco. If you need help quitting, ask your health care provider.\.br\ ? \.br\ If you are overweight, work with your health care provider and a dietitian to set a weight-loss goal that is healthy and reasonable for you. Extra weight can put pressure on your knee.\.br\ ? \.br\ Pay attention to any changes in your symptoms.\.br\ ? \.br\ Keep all follow-up visits. This is important.\.br\ Contact a health care provider if:\.br\ ? \.br\ Your knee pain continues, changes, or gets worse.\.br\ ? \.br\ You have a fever along with knee pain.\.br\ ? \.br\ Your knee feels warm to the touch or is red.\.br\ ? \.br\ Your knee tristan or locks up.\.br\ Get help right away if:\.br\ ? \.br\ Your knee swells, and the swelling becomes worse.\.br\ ? \.br\ You cannot move your knee.\.br\ ? \.br\ You have severe pain in your knee that cannot be managed with pain medicine.\.br\ Summary\.br\ ? \.br\ Acute knee pain can be caused by a fall, an injury, an infection, or damage, swelling, or irritation of the tissues that support your knee.\.br\ ? \.br\ Your health care provider may perform tests to find out the cause of the pain.\.br\ ? \.br\ Pay attention to any changes in your symptoms. Relieve your pain with rest, medicines, light activity, and the use of ice.\.br\ ? \.br\ Get help right away if your knee swells, you cannot move your knee, or you have severe pain that cannot be managed with medicine.\.br\ This information is not intended to replace advice given to you by your health care provider. Make sure you discuss any questions you have with your health care provider.\.br\ Document Revised: 04/26/2021 Document Reviewed: 04/26/2021 [employer] Patient Education ? 2022 [employer].br\ \.br\ [facility] Family Medicine Office/Clini c Noteon 12-30-2023 Family Medicine Office/Clinic Note HPI Staff Patient presents for a 1 month follow up for TURP, couldn't clear at [facility] due to abnormal ekg. Stress test and chest xray and echo ordered Patient saw cardiology 12/13/2023. Patient really doesn't know why he's here or what's going on. Said he had a chemical stress test and not happy with it. so he has to have the treadmill test now?? And if overlay plastician has to clear him why does he even need to be here? Flu: refused questions/concerns: History of Present Illness - Here for follow up. - No new issues. - Needs exercise stress test. - States he is trying to exercise to see if he can handle the exercise portion. Review of Systems PHQ Score Initial Depression Screen Score: 0 SCORE Physical Exam Vitals & Measurements T: 36.9 ?C(Temporal Artery) HR: 90(Peripheral) RR: 18 BP: 150/86 SpO2: 92% HT: 71 in HT: 180 cm WT: 155.2 kg WT: 341.44 lb BMI: 47.9 General: alert, no acute distress ENMT: oral mucosa moist, Cardiovascular: regular rate and rhythm, normal peripheral perfusion Respiratory: Lungs CTA, respirations non labored Extremities: no deformity, no trauma Neurological: oriented x 4, LOC appropriate for age, CN II-XII intact, motor strength equal & normal bilaterally, speech normal Abdomen: Soft, Nontender, Non-distended, + BS Assessment/Plan 1. Abnormal EKG (R94.31: Abnormal electrocardiogram [ECG] [EKG]) - Follow up with Cardiology 2. SOB (shortness of breath) on exertion (R06.02: Shortness of breath) - Stable. 3. Knee pain (M25.569: Pain in unspecified knee) - Please adjust exercise bike as discussed before. Follow-up No qualifying data available Patient Education Acute Knee Pain, Adult Problem List/Past Medical History Ongoing Abnormal EKG Anticoagulated BPH with urinary obstruction Elevated PSA Encounter to establish care Former smoker Hx of deep venous thrombosis Knee pain Prostate cancer screening SOB (shortness of breath) on exertion Urinary retention Historical No qualifying data Medications oxybutynin 5 mg Tab, See Instructions, PRN, 3 refills tamsulosin 0.4 mg Cap, 0.4 mg= 1 cap(s), Oral, BID, 11 refills warfarin, 5 mg, Oral, Every other day Allergies No Known Allergies Social History Alcohol Current, Beer, 1-2 times per year, Previous treatment: None. Alcohol use interferes with work or home: No. Drinks more than intended: No. Others hurt by drinking: No. Ready to change: No. Household alcohol concerns: No., 12/13/2023 Tobacco Former smoker, quit more than 30 days ago Tobacco Use:., 12/30/2023 Former smokeless tobacco user, quit more than 30 days ago Smokeless Tobacco Use:. Cigarettes, 12/13/2023 Family History Alzheimer's disease: Grandparent. Leukemia: Father. Immunizations Vaccine Date Status SARS-CoV-2 (COVID-19) mRNAMUL.ORD![id number] 12/13/2022 Recorded SARS-CoV-2 (COVID-19) mRNA BNT-162b2 vax 10/30/2021 Recorded SARS-CoV-2 (COVID-19) mRNA BNT-162b2 vax 02/14/2021 Recorded SARS-CoV-2 (COVID-19) mRNA BNT-162b2 vax 01/23/2021 Recorded Normal [facility] Comment on above: Result Comment: Elec tronically Signed By: Zane GUERIN, Cortez Hamilton.br\Date and Time Signed: 12/30/23 15:19 EST Patient Educationon 12-30-19 Patient Education Orthopedics Acute Knee Pain, Adult Acute knee pain is sudden and may be caused by damage, swelling, or irritation of the muscles and tissues that support the knee. Pain may result from: ? A fall. ? An injury to the knee from twisting motions. ? A hit to the knee. ? Infection. Acute knee pain may go away on its own with time and rest. If it does not, your health care provider may order tests to find the cause of the pain. These may include: ? Imaging tests, such as an X-ray, MRI, CT scan, or ultrasound. ? Joint aspiration. In this test, fluid is removed from the knee and evaluated. ? Arthroscopy. In this test, a lighted tube is inserted into the knee and an image is projected onto a TV screen. ? Biopsy. In this test, a sample of tissue is removed from the body and studied under a microscope. Follow these instructions at home: If you have a knee sleeve or brace: ? Wear the knee sleeve or brace as told by your health care provider. Remove it only as told by your health care provider. ? Loosen it if your toes tingle, become numb, or turn cold and blue. ? Keep it clean. ? If the knee sleeve or brace is not waterproof: ? Do not let it get wet. ? Cover it with a watertight covering when you take a bath or shower. Activity ? Rest your knee. ? Do not do things that cause pain or make pain worse. ? Avoid high-impact activities or exercises, such as running, jumping rope, or doing jumping jacks. ? Work with a physical therapist to make a safe exercise program, as recommended by your health care provider. Do exercises as told by your physical therapist. Managing pain, stiffness, and swelling ? If directed, put ice on the affected knee. To do this: ? If you have a removable knee sleeve or brace, remove it as told by your health care provider. ? Put ice in a plastic bag. ? Place a towel between your skin and the bag. ? Leave the ice on for 20 minutes, 2?3 times a day. ? Remove the ice if your skin turns bright red. This is very important. If you cannot feel pain, heat, or cold, you have a greater risk of damage to the area. ? If directed, use an elastic bandage to put pressure (compression) on your injured knee. This may control swelling, give support, and help with discomfort. ? Raise (elevate) your knee above the level of your heart while you are sitting or lying down. ? Sleep with a pillow under your knee. General instructions ? Take vysk-vzh-mwadgco and prescription medicines only as told by your health care provider. ? Do not use any products that contain nicotine or tobacco, such as cigarettes, e-cigarettes, and chewing tobacco. If you need help quitting, ask your health care provider. ? If you are overweight, work with your health care provider and a dietitian to set a weight-loss goal that is healthy and reasonable for you. Extra weight can put pressure on your knee. ? Pay attention to any changes in your symptoms. ? Keep all follow-up visits. This is important. Contact a health care provider if: ? Your knee pain continues, changes, or gets worse. ? You have a fever along with knee pain. ? Your knee feels warm to the touch or is red. ? Your knee tristan or locks up. Get help right away if: ? Your knee swells, and the swelling becomes worse. ? You cannot move your knee. ? You have severe pain in your knee that cannot be managed with pain medicine. Summary ? Acute knee pain can be caused by a fall, an injury, an infection, or damage, swelling, or irritation of the tissues that support your knee. ? Your health care provider may perform tests to find out the cause of the pain. ? Pay attention to any changes in your symptoms. Relieve your pain with rest, medicines, light activity, and the use of ice. ? Get help right away if your knee swells, you cannot move your knee, or you have severe pain that cannot be managed with medicine. This information is not intended to replace advice given to you by your health care provider. Make sure you discuss any questions you have with your health care provider. Document Revised: 04/26/2021 Document Reviewed: 04/26/2021 [employer] Patient Education ? 2022 [employer]. [facility] Pre-Certification Formon Pre-Certification Form [id number]#1.0 0TIFF Normal [facility] Insurance Correspondenceon 0 12-25-2023 Insurance Correspondence [id number]#1. 00TIFF Normal [facility] NM Myocardial Spect Part 2on 12-24-2023 NM Myocardial Spect Part 2 Exam Date/Time: 12/20/2023 15:56 EST 12/19/2023 09:51 EST Reason for Exam: R06.02;Shortness of breath (SOB) R06.02;Shortness of breath (SOB) Report PROCEDURE: Two-day Lexiscan nuclear stress test. INDICATIONS: Shortness of breath. PROCEDURE DETAILS: The patient was stressed according to Lexiscan protocol without event. The patient had Lexiscan infused without symptoms. The patient's baseline EKG was sinus rhythm with sinus arrhythmia, incomplete right bundle branch block with nonspecific ST-T wave abnormality. During peak stress, there were no significant EKG changes. No symptoms and blood pressure response was appropriate. Review of raw images demonstrated no significant motion. There was soft tissue attenuation due to large body habitus. FINDINGS: Uptake of the tracer was generally homogeneous with no identifiable ischemia or infarction. The TID ratio was elevated at 1.32, however, processing appeared to be different between the rest and stress images and visually there is no increased left ventricular size with stress. CONCLUSIONS: Only fair quality stress imaging due to large body habitus and inconsistent processing. Cannot exclude significant finding. Clinical correlation suggested. Consider alternate imaging modality. FINAL REPORT Signed (Electronic Signature): 12/24/2023 9:15 am Signed by: Mica GUERIN, Aditya Orta Transcribed by: ari Technologist: SONY Technical Comments NM Myocardial Spect Rest/Stress 2 Day: Rest Dose (mCi Tc99m Cardiolite): 29.9 NM Myocardial Spect Part 2: Please See Report for NM Myocardial Spect Rest/Stress 2 Day Stress Dose (mCi Tc99M Cardiolite): 29.1 Normal [facility] Stress EKG Tracingson 2023 Stress EKG Tracings [id number]#1. 00TIFF Normal [facility] Consent for Treatmenton 11-26 Consent for Treatment [id number]#1.0 0TIFF Normal [facility] Heart and Vascular Office/Cl inic Noteon 12-19-2023 Heart and Vascular Office/Clinic Note Chief Complaint cardiac clearance History of Present Illness Eugenia Gil is a 73-year-old male who presents today for a preoperative risk assessment. The patient has a history of DVT for which he takes warfarin. He underwent an incision and drainage of abscess in the crease of his leg. He denies hypertension, hyperlipidemia, or diabetes. He denies any history of cardiac issues and has not seen a overlay plastician in the past. He occasionally experiences a twinge in his chest that lasts for 1 to 2 seconds. He denies any prolonged chest pain. He does experience dyspnea with exertion, such as with prolonged ambulation, and it takes him about 1 minute to recover. He does experience palpitations when he attempts to engage in strenuous activities on his stationary bike. He denies lower extremity edema or anything similar. He occasionally experiences unspecified knee issues, noting that he has a bad knee. He is scheduled for an echocardiogram on 12/18/2023 and a stress test on 12/20/[address] Degroot. The patient is scheduled to undergo TURP procedure with Dr. Patton. Review of Systems PHQ Score Initial Depression Screen Score: 0 SCORE Constitutional: no fever, no sweats, no weakness Skin: no rash, no lesions, no bruising/petechiae ENMT: no sore throat, no congestion, no hoarseness Respiratory: positive shortness of breath, no cough, no orthopnea, no wheezing Cardiovascular: no chest pain, positive for palpitations on exertion, no edema Gastrointestinal: no nausea, no vomiting, no diarrhea, no GI bleeding Genitourinary: no anuria/oliguria no hematuria Musculoskeletal: no back pain, no trauma Neurologic: no headache, no dizziness, no numbness, no weakness Psychiatric: no sleeping problems, no irritability, no anxiety/depression. Heme/Lymph: no bleeding tendency, no bruising tendency Allergy/Immunologic: no recurrent infections, no impaired immunity Additional ROS info: Except as noted in the above Review of Systems and in the History of Present Illness all other systems have been reviewed and are negative or noncontributory Physical Exam Vitals & Measurements HR: 86(Peripheral) BP: 120/80 SpO2: 91% HT: 71 in HT: 180 cm WT: 153.8 kg WT: 338.36 lb BMI: 47.47 General: alert, no acute distress Skin: warm, dry intact Head: atraumatic, normocephalic Neck: trachea midline, no JVD, no bruit Eye: normal conjunctiva, sclera clear ENMT: oral mucosa moist Cardiovascular: regular rate and rhythm, no murmur, normal peripheral perfusion Respiratory: lungs CTA, respirations non labored Chest wall: no deformity. Gastrointestinal: soft, non-distended, no tenderness, no guarding. Back: no tenderness, normal ROM, normal alignment. Extremities: no edema, no deformity, no trauma Neurological: oriented x 4, LOC appropriate for age, sensation equal & normal bilaterally, speech normal Psychiatric: cooperative, affect appropriate for age, normal judgement, normal psychiatric thoughts. Assessment/Plan 1. Preoperative Cardiac Risk Assessment Eugenia Gil is a 73-year-old male with a history of DVT, remains on Coumadin, evaluated elsewhere for this. He comes in now for preoperative risk assessment since he had an abnormal EKG showing anterolateral T-wave inversions. He has a stress test and an echocardiogram scheduled by Dr. Degroot. He denies any chest pain. He does have some dyspnea on exertion. He denies any orthopnea or lower extremity edema. He is able to sustain 4 METs of activity without any angina but might become short of breath. We will review his testing. He can be cleared for surgery if his stress test is negative, and we will send the clearance to Dr. Patton. If his stress test result is abnormal, then we will need to proceed with further testing. We discussed the process and risks of stress testing. Follow Up: Follow up in 3 months. ATTESTATION: Portions of this record may have been created with voice recognition artificial intelligence software, specifically SafetyPay, goOutMap and or [id number]. Substitutions may have occurred due to the inherent limitations of voice recognition and artificial intelligence software. Documentation services were performed after patient or guardian consented to allow [employer] to record this visit. YENI crime victim specialist and provider reviewed before signing. YENI: Mare Cherry. Follow-up No qualifying data available Problem List/Past Medical History Ongoing Abnormal EKG Anticoagulated BPH with urinary obstruction Elevated PSA Encounter to establish care Former smoker Hx of deep venous thrombosis Prostate cancer screening SOB (shortness of breath) on exertion Urinary retention Historical No qualifying data Medications oxybutynin 5 mg Tab, See Instructions, PRN, 3 refills tamsulosin 0.4 mg Cap, 0.4 mg= 1 cap(s), Oral, BID, 11 refills warfarin, 5 mg, Oral, Every other day Allergies No Known A (more content not included)... [facility] Comment on above: Result Comment: Elec tronically Signed By: Aditya Nino MD\.br\Date and Time Signed: 12/19/23 18:28 EST\.br\Electronically Co-Signed By: Mare Cherry\.br\Date and Time Co-Signed: 12/13/23 12:06 EST Physician Orderon 12-13-2023 Physician Order [id number]. 00TIFF [facility] Ambulatory Visit Summaryon 0 12-09-2023 Ambulatory Visit Summary EUGENIA GIL :1950 Visit Date:12/09/2023 Ambulatory Visit Instructions Your Care Team Attending Physician - Shahab PATTON MD Primary Care Physician - Cortez Degroot MD This Is Your Medications List oxybutynin (oxybutynin 5 mg Tab) tamsulosin (tamsulosin 0.4 mg Cap) warfarin What to do next Scheduled Follow-Up Appointments Saturday 10:15 AM EST With: Aditya Nino MD Where: [facility] [place] 2023 8:00 AM EST With: Where: Cardiovascular Services 2023 9:00 AM EST With: Where: Nuclear Medicine 2023 10:00 AM EST With: Where: Nuclear Medicine Saturday 2:30 PM EST With: Where: Nuclear Medicine Saturday 3:30 PM EST With: Where: Nuclear Medicine Saturday 3:00 PM EST With: Cortez Degroot MD Where: [facility] Normal [address] [place] [address] [place] [address]- \.br\ Medications\.br\ What How Much When Instructions\.br \ Unchanged oxybutynin (oxybutynin 5 mg Tab) See instructions 1 tab po q 6 hrs PRN bladder spasms/ leaking around hinton, up to TID \.br\ Unchanged tamsulosin (tamsulosin 0.4 mg Cap) 1 Capsules By Mouth 2 times a day Duration: 30 Days\.br\ Unchanged warfarin 5 Milligram By Mouth Every other day alternate 2.5 mg with 5 mg tab \.br\ Allergies\.br\ No Known Allergies\.br\ Problems\.br\ Ongoing - Any problem that you are currently receiving treatment for.\.br\ Abnormal EKG\.br\ Anticoagulated\. br\ BPH with urinary obstruction\.br\ Elevated PSA\.br\ Encounter to establish care\.br\ Former smoker\.br\ Hx of deep venous thrombosis\.br\ Prostate cancer screening\.br\ SOB (shortness of breath) on exertion\.br\ Urinary retention\.br\ Patient Survey\.br\ You may receive a survey via text or e-mail asking about your office visit. Please share your experience with us by completing your survey. We appreciate your feedback and thank you for choosing us for your care.\.br\ \.br\ [facility] Insurance Correspondenceon 0 12-03-2023 Insurance Correspondence [id number]#[id number] 0TIFF Normal [facility] Family Medicine Office/Clini c Noteon 12-02-2023 Family Medicine Office/Clinic Note HPI Staff Eugenia is a 73 year old male presenting for surgical clearance Surgery scheduled for 12/05/23 w/ Dr Patton for a TURP at [facility] PAT testing is 11/21/23 flu: due History of Present Illness Eugenia Gil is a 73-year-old male who presents today for pre-surgical clearance. The patient's last medical consultation was with Dr. Balwinder Brar in 2017, and he has not sought medical attention since then. He was referred to this office by Dr. Patton. He presented to the emergency department due to urinary retention. His diagnostic assessments were documented as within normal limits; however, he was not informed of his EKG findings, which indicated a moderate T wave abnormality suggestive of anterior ischemia.. He is scheduled for a TURP procedure on 12/05/2023. He has an abscess in the inguinal region. He is currently on a regimen of warfarin, tamsulosin, and oxybutynin. He was initiated on warfarin in 2017 for a deep vein thrombosis in his leg. The etiology of the thrombus in his leg is uncertain, but he hypothesizes it might be due to sedentary behavior. He has a degenerative knee condition which inhibits him from engaging in physical activity without discomfort. 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 His tolerance to ambulation without experiencing dyspnea is contingent on his ambulatory speed. His residential bathroom is situated upstairs, necessitating him to ascend a steep flight of 12 steps. He experiences transient dyspnea upon ascending the stairs, which resolves after approximately 30 seconds. He denies experiencing any chest pain. He expresses a fondness for billiards but admits to not engaging in the activity as frequently anymore. He is unmarried and has 2 adult children whom he does not see as often as he desires. He is taking chondroitin/glucosamin e for his knee issues. He noticed improvements after 3 weeks of use. The pain is manageable, and he has become accustomed to it. Physical Exam Vitals & Measurements HR: 83(Peripheral) BP: 128/82 SpO2: 89% HT: 71 in HT: 180 cm WT: 153.6 kg WT: 337.92 lb BMI: 47.41 General: alert, no acute distress Cardiovascular: regular rate and rhythm, normal peripheral perfusion Respiratory: Lungs CTA, respirations non labored Extremities: no deformity, no trauma Neurological: oriented x 4, LOC appropriate for age, CN II-XII intact, motor strength equal & normal bilaterally, speech normal Gastrointestinal: Abdomen is soft, non-tender, non-distended. Assessment/Plan 1. Encounter to establish care (Z76.89: Persons encountering health services in other specified circumstances) We will request records. If there are any records that can be requested as this provider has been out of the area for over 6 years, we will see if we can get those and review those. 2. Abnormal EKG (R94.31: Abnormal electrocardiogram [ECG] [EKG]) Because of the abnormal EKG, I can not clear him for his TURP. We will go ahead and send him for a stress test, a chest x-ray, and an echocardiogram. 3. SOB (shortness of breath) on exertion (R06.02: Shortness of breath) Patient is unable to go up 2 flights of stairs without getting short of breath. This may be secondary to deconditioning as the patient has supposedly had a 60 pound weight gain since 09/2023. I do not believe this is accurate, but patient has had a significant weight gain. 4. Hx of deep venous thrombosis (Z86.718: Personal history of other venous thrombosis and embolism) Patient will have to be off of his warfarin. It sounds like the patient had a DVT in his lower extremity secondary to inactivity. Encouraged the patient to be more active now that his knee does not bother him so much. Encouraged the patient to start ambulating. 5. BPH with urinary obstruction (N40.1: Benign prostatic hyperplasia with lower urinary tract symptoms) We will call the urologist and let them know that the TURP will need to be put on hold. We will have to follow up in 1 month. 6. Adult BMI 45.0-49.9 kg/sq m (Z68.42: Body mass index [BMI] 45.0-49.9, adult) BMI education. 7. Non-smoker (Z78.9: Other specified health status) Please continue not to smoke. Other obstructive and reflux uropathy (N13.8: Other obstructive and reflux uropathy) We will see the patient back in 1 month and we will refer to overlay plastician for further management and clearance for surgery. Portions of this record may have been created with voice recognition artificial intelligence software, specifically SafetyPay, goOutMap and or [id number]. Substitutions may have occurred due to the inherent limitations of voice recognition and artificial intelligence software. ATTESTATION: Documentation services were performed after patient or guardian consented to allow [employer] to record this visit. YENI crime victim specialist and provider reviewed before signing. YENI: Dhevie Rigor. Follow-up N (more content not included)... [facility] Comment on above: Result Comment: Elec tronically Signed By: Ross Cortez GUERIN\.br\Date and Time Signed: 12/02/23 12:47 EST\.br\Electronically Co-Signed By: Dario Cool\.br\Date and Time Co-Signed: 11/28/23 15:01 EST Ambulatory Visit Summaryon 0 11-28-2023 Ambulatory Visit Summary EUGENIA GIL :1950 Visit Date:11/28/2023 Ambulatory Visit Instructions Your Diagnosis Encounter to establish care Abnormal EKG SOB (shortness of breath) on exertion Hx of deep venous thrombosis BPH with urinary obstruction Adult BMI 45.0-49.9 kg/sq m Non-smoker Other obstructive and reflux uropathy Your Care Team Attending Physician - Cortez Degroot MD Primary Care Physician - Cortez Degroot MD This Is Your Medications List oxybutynin (oxybutynin 5 mg Tab) tamsulosin (tamsulosin 0.4 mg Cap) warfarin Discharge Vitals Heart Rate (Peripheral) 83 Blood Pressure 128/82 Height 180 cm Height 71 in Weight 153.6 kg Weight 337.92 lb BMI 47.41 What to do next Scheduled Follow-Up Appointments Saturday 10:00 AM EST With: Where: [facility] Invalid Interpretation Code [address] [place] [address]- \.br\ Saturday 3:00 PM EST \.br\ With: Cortez Degroot MD\.br\ Where: [facility] Lab Reportson 11-28-2023 Lab Reports [id number]#1.0 0TIFF [facility] Patient Educationon 11-28-19 Patient Education Nutrition BMI for Adults What is BMI? Body mass index (BMI) is a number that is calculated from a person's weight and height. BMI can help estimate how much of a person's weight is composed of fat. BMI does not measure body fat directly. Rather, it is an alternative to procedures that directly measure body fat, which can be difficult and expensive. BMI can help identify people who may be at higher risk for certain medical problems. What are BMI measurements used for? BMI is used as a screening tool to identify possible weight problems. It helps determine whether a person is obese, overweight, a healthy weight, or underweight. BMI is useful for: ? Identifying a weight problem that may be related to a medical condition or may increase the risk for medical problems. ? Promoting changes, such as changes in diet and exercise, to help reach a healthy weight. BMI screening can be repeated to see if these changes are working. How is BMI calculated? BMI involves measuring your weight in relation to your height. Both height and weight are measured, and the BMI is calculated from those numbers. This can be done either in [place] ([place] or metric measurements. Note that charts and online BMI calculators are available to help you find your BMI quickly and easily without having to do these calculations yourself. To calculate your BMI in [place] ([place] measurements: 1. Measure your weight in pounds (lb). 2. Multiply the number of pounds by 703. ? For example, for a person who weighs 180 lb, multiply that number by 703, which equals 126,540. 3. Measure your height in inches. Then multiply that number by itself to get a measurement called inches squared. ? For example, for a person who is 70 inches tall, the inches squared measurement is 70 inches x 70 inches, which equals 4,900 inches squared. 4. Divide the total from step 2 (number of lb x 703) by the total from step 3 (inches squared): 126,540 ? 4,900 = 25.8. This is your BMI. To calculate your BMI in metric measurements: 1. Measure your weight in kilograms (kg). 2. Measure your height in meters (m). Then multiply that number by itself to get a measurement called meters squared. ? For example, for a person who is 1.75 m tall, the meters squared measurement is 1.75 m x 1.75 m, which is equal to 3.1 meters squared. 3. Divide the number of kilograms (your weight) by the meters squared number. In this example: 70 ? 3.1 = 22.6. This is your BMI. What do the results mean? BMI charts are used to identify whether you are underweight, normal weight, overweight, or obese. The following guidelines will be used: ? Underweight: BMI less than 18.5. ? Normal weight: BMI between 18.5 and 24.9. ? Overweight: BMI between 25 and 29.9. ? Obese: BMI of 30 or above. Keep these notes in mind: ? Weight includes both fat and muscle, so someone with a muscular build, such as an athlete, may have a BMI that is higher than 24.9. In cases like these, BMI is not an accurate measure of body fat. ? To determine if excess body fat is the cause of a BMI of 25 or higher, further assessments may need to be done by a health care provider. ? BMI is usually interpreted in the same way for men and women. Where to find more information For more information about BMI, including tools to quickly calculate your BMI, go to these websites: ? Centers for Disease Control and Prevention: www.cdc.gov ? [place] Heart Association: www.heart.org ? National Heart, Lung, and Blood Gordon: www.nhlbi.nih.gov Summary ? Body mass index (BMI) is a number that is calculated from a person's weight and height. ? BMI may help estimate how much of a person's weight is composed of fat. BMI can help identify those who may be at higher risk for certain medical problems. ? BMI can be measured using Norwegian measurements or metric measurements. ? BMI charts are used to identify whether you are underweight, normal weight, overweight, or obese. This information is not intended to replace advice given to you by your health care provider. Make sure you discuss any questions you have with your health care provider. Document Revised: 08/03/2020 Document Reviewed: 06/10/2020 [employer] Patient Education ? 2022 [employer]. [facility] Physician Referralon 024 Physician Referral [id number] .00TIFF [facility] ECG 12-Leadon 11-22-2023 ECG 12-Lead [id number] 0TIFF [facility] ECG 12-Lead [id number]#1.0 0TIFF [facility] Lab Reportson 11-22-2023 Lab Reports [id number]#1.0 0TIFF [facility] Lab Reports [id number]#1.0 0TIFF [facility] Lab Reports [id number]#1.0 0TIFF [facility] Ambulatory Visit Summaryon 1 01-06-2023 Ambulatory Visit Summary EUGENIA GIL :1950 Visit Date:11/05/2023 Ambulatory Visit Instructions Your Care Team Attending Physician - Shahab PATTON MD Primary Care Physician - Cortez Degroot MD This Is Your Medications List oxybutynin (oxybutynin 5 mg Tab) tamsulosin (tamsulosin 0.4 mg Cap) warfarin What to do next Scheduled Follow-Up Appointments 2023 1:15 PM EST With: Cortez Degroot MD Where: [facility] Invalid Interpretation Code [address] [place] [address]- \.br\ Saturday 2:15 PM EST \.br\ With: Shahab PATTON MD\.br\ Where: [facility] Consultation Noteon 10-23-20 23 Consultation Note [id number]. 00TIFF [facility] Consent for Procedure/Surger yon 10-22-2023 Consent for Procedure/Surgery [id number] 0TIFF [facility] Ambulatory Visit Summaryon 1 12-08-2022 Ambulatory Visit Summary EUGENIA GIL :1950 Visit Date:10/08/2023 Ambulatory Visit Instructions Your [...] With: Shahab PATTON MD Where: [facility] Patient Educationon 10-08-20 Patient Education Urology [...] including vitamins, herbs, eye drops, creams, and ioih-vtq-hkqzhvc medicines. ? Any problems you or family [...] tells you to take them. ? Taking ayoz-ape-avmqerz medicines, vitamins, herbs, and supplements. Surgery safety [...] health care (more content not included)... [facility] Urology Office/Clinic Noteon 10-08-2023 Urology Office/Clinic [...] taking Warfarin. History of Present Illness staff [facility] reviewed and agree. Review of Systems PHQ [...] Retention of urine, unspecified) Pt presented to [facility] ER 07/07/23 for retention. Pt was [...] E&M of Est. Patient Moderate 30-39 Min 06862 3. 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 Patient Moderate 30-39 Min 66090 4. 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 Patient Moderate 30-39 Min 52691 Orders: oxybutynin, See Instructions, PRN for urinary discomfort, 1 tab po q 6 hrs PRN bladder spasms/leaking around hinton, up to TID, # 30 tab(s), Refills(s) 3, Pharmacy: [facility]/pharmacy #[id number], 180, cm, 10/08/23 12:12:00 EST, Height/Length Dosing, 123, kg, 10/08/23 12:12:0... Follow-up With When Contact Information JENN GUERIN, Shahab Carrasquillo, URL [address] [place] [address]- Additional Instructions: Schedule TURP Patient Education Transurethral Resection of the Prostate Documentation recorded by the reji Moon accurately reflects the services(s) I performed and decisions made by me. Authenticated by Esperanza Live PA-C on 10/08/2023 12:42:53. INaz, personally scribed for Esperanza Live PA-C on [...] Former s (more content not included)... [facility] Comment on above: Result Comment: Elec tronically Signed By: ESPERANZA LIVE PA-Cbr\Date and Time Signed: 10/08/23 12:43 EST\.br\Electronically Co-Signed By: Naz Moon\Date and Time Co-Signed: 10/08/23 12:34 EST Patient Educationon 09-12-20 Patient Education Urology Transurethral Resection of the [...] including vitamins, herbs, eye drops, creams, and jadi-iku-oavpjnc medicines. ? Any problems you or family [...] tells you to take them. ? Taking kkfj-fzo-oafqrry medicines, vitamins, herbs, and supplements. Surgery safety [...] health care (more content not included)... [facility] Consent for Procedure/Surger yon 09-03-2023 Consent for Procedure/Surgery [id number] 0TIFF [facility] Consent for Treatmenton 08-25 Consent for Treatment [id number] 0TIFF [facility] IntraOperative Documentson IntraOperative Documents [id number] 0TIFF [facility] IntraOperative Documents [id number]#1.0 0TIFF [facility] Main OR Intraoperative Recor don 09-03-2023 Main OR Intraoperative Record IntraOp Document Type FTURO Summary Primary Physician: Shahab PATTON MD Finalized Date/Time: 09/03/23 16:31:34 Pt. Name: KANDICEEUGENIA D.O.B./Sex: 1950 Male Med Rec #: [id number] Physician: Shahab PATTON MD Financial #: [id number] Pt. Type: O Room/Bed: / Admit/Disch: 09/03/23 [...] Entry 3 Case Attendee Shahab PATTON MD [facility], Faiza Figueroa RN, Faiza Cruz Role Performed Surgeon - Primary Scrub - Primary Dictating Transcribing Machine Servicer - Primary Time In 09/03/23 16:12:00 09/03/23 [...] Position Verified Availability Equipment, Medication Time Out Shahab PATTON MD, Verified (If Participants Faiza Hemphill CST) Carolina Perez RN, Kimberly Y Time Out [...] By: Faiza Figueroa RN 09/03/23 16:31 [facility] Main OR Preoperative Recordo n 09-03-2023 Main OR Preoperative Record Holding Area Document Type FTURO Summary Primary Physician: Shahab PATTON MD Finalized Date/Time: 09/03/23 16:08:42 Pt. Name: EUGENIA GIL/Sex: 1950 Male Med Rec #: [id number] Physician: Shahab PATTON MD Financial #: [id number] Pt. Type: O Room/Bed: / Admit/Disch: 09/03/23 [...] pain in left knee Skin Integrity Intact, [place], Warm, & Dry Vitals - EU Blood Pressure 144/84 Pulse 92 bpm Respirations 20 br/min SPO2 95 % RN Reviewed Yes Last Modified By: Faiza Figueroa RN 09/03/23 16:08:41 General Comments: Temp 97.3 Finalized By: Faiza Figueroa RN Document Signatures Signed By: Ruby Flores LPN 09/03/23 16:02 Faiza Figueroa RN 09/03/23 16:08 [facility] Operative Reporton 3 Operative Report Patient: EUGENIA GIL Age: 72 years Sex: Male : 1950 Associated Diagnoses: None Author: Shahab PATTON MD Procedure Operative Information Details: Date/ Time: 09/03/2023 16:33:00. 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 Post-Op Dx: Same. Anesthesia Type: Local. Procedure: Local Cystoscopy. Complications: None. Risks/Benefits/Informe d Consent: Surgical risks, benefits, details of the [...] it for now. We replaced an 18 [place] catheter. He will get that changed in a month. He will call us if he is interested in going forward with a TURP.. [facility] Comment on above: Result Comment: Elec tronically Signed By: JENN GUERIN, Shahab Carrasquillo\.br\Date and Time Signed: 09/03/23 16:35 EDT Patient Educationon 09-03-20 Patient Education [facility] Ambulatory Visit Summaryon 0 08-12-2023 Ambulatory Visit Summary EUGENIA GIL :1950 Visit Date:08/12/2023 Ambulatory Visit Instructions Your Care Team Attending Physician - JENN GUERIN, Shahab Carrasquillo Primary Care Physician - Zane GUERIN, Cortez Erwin This Is Your Medications List ciprofloxacin (Cipro 500 mg Tab) tamsulosin (tamsulosin 0.4 mg Cap) warfarin What to do next Scheduled Follow-Up Appointments Saturday 8:15 AM EDT Where: [facility] Saturday 3:00 PM EDT Where: [facility] Saturday 3:45 PM EDT Where: [facility] Saturday 1:00 PM EST Where: [facility] Lab Reportson 08-11-2023 Lab Reports [id number] 0CD:127 [facility] Formson 08-06-2023 Forms [id number] CD:127 [facility] Lab Reportson 08-06-2023 Lab Reports [id number]#[id number] 0CD:127 [facility] Ambulatory Visit Summaryon 0 08-05-2023 Ambulatory Visit Summary EUGENIA GIL :1950 Visit Date:08/05/2023 Ambulatory Visit Instructions Your Diagnosis Urinary retention Prostate cancer screening Anticoagulated Tests Performed Urnls Dip Stick Auto w/o Microscopy POC 91945 Your Care Team Attending Physician - JENN GUERIN, Shahab Carrasquillo Primary Care Physician - Cortez Dergoot MD This Is Your Medications List tamsulosin (tamsulosin 0.4 mg Cap) Contact prescribing physician if questions or concerns warfarin Discharge Vitals Temperature (Temporal Artery) 36.4 ?C Heart Rate (Peripheral) 88 Blood Pressure 132/88 Height 180 cm Height 71 in Weight 123 kg Weight 270.6 lb BMI 37.96 What to do next You Need to Schedule the Following Appointments Follow Up with JENN GUERIN, Shahab Carrasquillo, ALYSSA When: Where: [facility] [address], [place] [address] [phone] Medications What How Much When Instructions Unchanged tamsulosin (tamsulosin 0.4 mg Cap) 1 Capsules By Mouth Every day Unchanged warfarin By Mouth Every day Contact prescribing physician if questions or concerns Test Results Urnls Dip Stick Auto w/o Microscopy POC 91784 (08/05/2023) Bilirubin Urine Dipstick - Negative Blood Urine Dipstick - 2+ Moderate Glucose Urine Dipstick - Negative Ketones Urine Dipstick - Negative Leukocytes Urine Dipstick - 1+ Small Nitrite Urine Dipstick - Negative Protein Urine Dipstick - 3+ (300 mg/dl) Specific [place] Urine Dipstick - 1.025 Urine Appearance Urine Dipstick - Clear Urine Color Urine Dipstick - Yellow Urobilinogen Urine Dipstick - Normal 0.2-1 EU/dl pH Urine Dipstick - 7 Allergies No Known Allergies Problems Ongoing - Any problem that you are currently receiving treatment for. Anticoagulated Prostate cancer screening Urinary retention [facility] ED Note-Physicianon 08-05-20 ED Note-Physician [id number] 0CD:127 [facility] Patient Educationon 08-05-20 Patient Education Urology [...] including vitamins, herbs, eye drops, creams, and ozvi-phh-cuiwbpr medicines. ? Whether you are or may [...] results be (more content not included)... 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 Pt prestent to [facility] ER 07/07/23 for retention. Pt was [...] Will order one now. 3. Anticoagulated (Z79.01: intermediate (current) use of anticoagulants) On Warfarin. 4. Former smoker (Z87.891: Personal history of nicotine dependence) Increased risk for urothelial cancer. Follow-up With When Contact Information JENN GUERIN, Shahab Carrasquillo, URL [facility] [address], [place] [phone] Additional Instructions: sched Cysto/UDS PSA Patient Education Urodynamic Testing Cystoscopy Acute Urinary Retention, Male I, Elizabeth Dionicio, personally scribed for Dr. Patton on 08/05/2023 13:15:27. . Documentation recorded by the scribe, Elizabeth Greenberg, accurately reflects the services(s) I performed and decisions made by me. Authenticated by Dr. Patton on 08/05/2023 13:19:12. Problem List/Past Medical History Ongoing Anticoagulated Former smoker Prostate cancer screening Urinary retention Historical No qualifying data Medications tamsulosin 0.4 mg Cap, 0.4 mg= 1 cap(s), Oral, Daily warfarin, Oral, Daily Allergies No Known Allergies Immunizations Vaccine Date Status SARS-CoV-2 (COVID-19) [id number].ORD![id number] 12/13/2022 Recorded SARS-CoV-2 (COVID-19) mRNA BNT-162b2 vax 10/30/2021 Recorded SARS-CoV-2 (COVID-19) mRNA BNT-162b2 vax 02/14/2021 Recorded SARS-CoV-2 (COVID-19) mRNA BNT-162b2 vax 01/23/2021 Recorded Lab Results Ambulatory Point of Care Results Bilirubin Urine Dipstick: Negative (08/05/23 12:18:00) Blood Urine Dipstick: 2+ Moderate (08/05/23 12:18:00) Glucose Urine Dipstick: Negative (08/05/23 12:18:00) Ketones Urine Dipstick: Negative (08/05/23 12:18:00) L (more content not included)... [facility] Comment on above: Result Comment: Elec tronically Signed By: Andra Jamil\Date and Time Signed: 08/05/23 13:29 EDT Vital Signs Date Time Vital Sign Value Performing Clinician Nick gray 05-20-2024 10:07-0400 Blood Pressure Location Paul Barbosa [facility] 05-20-2024 10:07-0400 Diastolic blood pressure 79 mm[Hg] Paul Barbosa [facility] 05-20-2024 10:07-0400 Heart rate 76 /min Paul Barbosa [facility] 05-20-2024 10:07-0400 Respiratory rate 16 /min Paul Barbosa [facility] 05-20-2024 10:07-0400 SaO2% (BldA) [Mass fraction] 89 % Paul Barbosa [facility] 05-20-2024 10:07-0400 Systolic blood pressure 132 mm[Hg] Paul Barbosa [facility] 04-14-2024 12:31-0400 Blood Pressure Location Rae Orzech [facility] 04-14-2024 12:31-0400 Body temperature 98.06 [degF] Rae Orzech [facility] 04-14-2024 12:31-0400 Diastolic blood pressure 77 mm[Hg] Rae Orzech [facility] 04-14-2024 12:31-0400 Heart rate 97 /min Rae Orzech [facility] 04-14-2024 12:31-0400 Respiratory rate 16 /min Rae Orzech [facility] 04-14-2024 12:31-0400 Systolic blood pressure 125 mm[Hg] Rae Orzech [facility] 04-07-2024 14:03-0400 Blood Pressure Location Paul Barbosa [facility] 04-07-2024 14:03-0400 Diastolic blood pressure 84 mm[Hg] Paul Barbosa [facility] 04-07-2024 14:03-0400 Heart rate 83 /min Paul Barbosa [facility] 04-07-2024 14:03-0400 Systolic blood pressure 130 mm[Hg] Paul Barbosa [facility] 12-13-2023 10:31-0500 Blood Pressure Location Aditya Nino [facility] 12-13-2023 10:31-0500 Diastolic blood pressure 80 mm[Hg] Aditya Nino [facility] 12-13-2023 10:31-0500 Heart rate 86 /min Aditya Nino [facility] 12-13-2023 10:31-0500 SaO2% (BldA) [Mass fraction] 91 % Aditya Nino [facility] 12-13-2023 10:31-0500 Systolic blood pressure 120 mm[Hg] Aditya Nino [facility] 08-12-2023 13:50-0400 Body height 180.34 cm Beth Joseph Other [employer] Other 08-12-2023 13:50-0400 Body mass index (BMI) [Ratio] 45.07 kg/m2 Beth Joseph Other [employer] Other 08-12-2023 13:50-0400 Body temperature 96.6 [degF] Beth Joseph Other [employer] Other 08-12-2023 13:50-0400 Body weight 146.6 kg Beth Joseph Other [employer] Other 08-12-2023 13:50-0400 Diastolic blood pressure 82 mm[Hg] Beth Joseph Other [employer] Other 08-12-2023 13:50-0400 Respiratory rate 18 /min Beth Joseph Other [employer] Other 08-12-2023 13:50-0400 SaO2% (BldA) [Mass fraction] 97 % Beth Joseph Other [employer] Other 08-12-2023 13:50-0400 Systolic blood pressure 142 mm[Hg] Beth Joseph Other [employer] Other 08-05-2023 12:21-0400 Blood Pressure Location Shahab PATTON [facility] 08-05-2023 12:21-0400 Body temperature 97.52 [degF] Shahab PATTON [facility] 08-05-2023 12:21-0400 Diastolic blood pressure 88 mm[Hg] Shahab PATTON [facility] 08-05-2023 12:21-0400 Heart rate 88 /min Shahab PATTON [facility] 08-05-2023 12:21-0400 Systolic blood pressure 132 mm[Hg] Shahab PATTON [facility] Encounters Encounter Date Encounter Type Care Provider Facility Start: 05-10-2025 ambulatory Cortez Degroot Facility :[facility] [place] Start: 07-31-2024 ambulatory Shahab Velasquezi ty:[facility] Start: 07-13-2024 ambulatory Cortez Degroot Facility :[facility] [place] Start: 07-06-2024 ambulatory Shahab Velasquezi ty:[facility] Start: 07-02-2024 ambulatory Shahab PATTON Facili ty::[id number] Start: 06-09-2024 End: 06-09-2024 ambulatory Rae X Orzech Facility:[facility] Start: 06-09-2024 End: 06-09-2024 Patient encounter procedure Rae X Orzech [facility] Start: 05-20-2024 End: 05-20-2024 ambulatory LEI Barbosa Facility:[facility] Start: 05-20-2024 End: 05-20-2024 Patient encounter procedure Paul Barbosa [facility] Start: 05-20-2024 End: 05-20-2024 Preprocedural examination done Paul Barbosa [facility] Start: 05-12-2024 End: 05-12-2024 ambulatory ESPERANZA LIVE Facility:[facility] Start: 05-12-2024 End: 05-12-2024 Patient encounter procedure ESPERANZA LIVE [facility] Start: 05-11-2024 End: 05-11-2024 ambulatory Cortez Degroot Facility:[facility] [place] Start: 04-17-2024 End: 04-17-2024 Admission to same day surgery center Aditya Nino [facility] Start: 04-17-2024 End: 04-17-2024 ambulatory Aditya Nino Facility:[facility] Start: 04-14-2024 End: 04-14-2024 ambulatory Rae X Orzech Facility:[facility] Start: 04-14-2024 End: 04-14-2024 Patient encounter procedure Rae X Orzech [facility] Start: 04-07-2024 End: 04-07-2024 ambulatory Paul Barbosa Facility:[facility] Start: 04-07-2024 End: 04-07-2024 Patient encounter procedure Paul Barbosa [facility] Start: 04-07-2024 End: 04-07-2024 ambulatory XXXX NONE Facility:[facility] Start: 04-07-2024 End: 04-07-2024 Patient encounter procedure Paul Ana Chelsey [facility] Start: 03-10-2024 End: 03-10-2024 ambulatory ESPERANZA TONYRY Facility:[facility] Start: 03-10-2024 End: 03-10-2024 Patient encounter procedure ESPERANZA TONYRY [facility] Start: 03-09-2024 End: 03-09-2024 ambulatory Cortez Degroot Facility:[facility] [place] Start: 02-11-2024 End: 02-11-2024 ambulatory Shahab PATTON Facility:[facility] Start: 02-11-2024 End: 02-11-2024 Patient encounter procedure Shahab PATTON [facility] Start: 02-06-2024 End: 02-06-2024 ambulatory Aditya Nino Facility:[facility] Start: 02-06-2024 End: 02-06-2024 Patient encounter procedure Aditya Nino [facility] Start: 01-06-2024 End: 01-06-2024 ambulatory Shahab PATTON Facility:[facility] Start: 01-06-2024 End: 01-06-2024 Patient encounter procedure Shahab PATTON [facility] Start: 12-30-2023 End: 12-30-2023 ambulatory Cortez Degroot Facility:[facility] [place] Start: 12-26-2023 ambulatory Shahab PATTON Facility :[facility] [place] Start: 12-19-2023 End: 03-19-2024 ambulatory Cortez Degroot Facility:[facility] Start: 12-19-2023 End: 03-19-2024 Recurring Cortez Degroot [facility] Start: 12-13-2023 End: 12-13-2023 ambulatory Cortez Degroot Facility:[facility] Start: 12-13-2023 End: 12-13-2023 Patient encounter procedure Aditya Nino [facility] Start: 12-09-2023 End: 12-09-2023 ambulatory Shahab PATTON Facility:[facility] Start: 12-09-2023 End: 12-09-2023 Patient encounter procedure Shahab PATTON [facility] Start: 12-05-2023 End: 12-05-2023 ambulatory Shahab PATTON Facility:[facility] [place] Start: 12-05-2023 End: 12-05-2023 Off-Site Shahab PATTON [facility] Start: 11-28-2023 End: 11-28-2023 ambulatory Cortez Degroot Facility:[facility] [place] Start: 11-05-2023 End: 11-05-2023 ambulatory Shahab PATTON Facility:[facility] Start: 10-08-2023 End: 10-08-2023 ambulatory ESPERANZA LIVE Facility:[facility] Start: 10-08-2023 End: 10-08-2023 Patient encounter procedure ESPERANZA LIVE [facility] Start: 09-03-2023 End: 09-03-2023 ambulatory Shahab PATTON Facility:[facility] Start: 08-12-2023 Office outpatient ne w 10 minutes [facility] Start: 08-12-2023 End: 08-12-2023 ambulatory Shahab PATTON [facility] Start: 08-12-2023 End: 08-12-2023 Patient encounter procedure Shahab PATTON [facility] Start: 08-05-2023 End: 08-05-2023 ambulatory Shahab PATTON Facility:[facility] Start: 08-05-2023 End: 08-05-2023 Patient encounter procedure Shahab PATTON [facility] Start: 07-11-2023 ambulatory Shahab PATTON Facility :[facility] Start: 03-25-2023 End: 04-24-[address] NONE [...] FAWWAD Facility:[facility] Start: 07-26-2022 End: 08-25-2022 ambulatory SHAIKH Chris MONROE Facility:[facility] Start: 06-25-2022 End: 07-25-2022 ambulatory SHAIKH Chris MONROE Facility:[facility] Start: 05-25-2022 End: 06-22-2022 ambulatory JALLOH Chris MONROE Facility:[facility] Procedures Date Procedure Procedure Detail Performing Clinician Start: 04-17-2024 Catheterization of l eft heart ESPERANZA LIVE Tonsillectomy Paul Barbosa Immunizations Immunization Date Immunization Notes Care Provider [facility] 12-13-2022 SARS-CoV-2 (COVID-19 ) mRNAMUL.ORD![id number] Shahab PATTON [facility] 10-30-2021 SARS-CoV-2 (COVID-19 ) mRNA BNT-162b2 vax Shahab PATTON [facility] 02-14-2021 SARS-CoV-2 (COVID-19 ) mRNA BNT-162b2 vax Shahab PATTON [facility] 01-23-2021 SARS-CoV-2 (COVID-19 ) mRNA BNT-162b2 vax Shahab PATTON [facility] Payers Date Payer Category Payer Unknown [id number] 1959 Unknown [id number] 1952 Unknown [id number] 2.16.84 0.1.095480.3.579.2.593 1952 Unknown [id number] 2.16.84 0.1.067084.3.579.2.593 1952 Unknown [id number] 2.16.84 0.1.516619.3.579.2.593 1952 Unknown [id number] 2.16.84 0.1.156087.3.579.2.593 1952 Unknown [id number] 2.16.84 0.1.492517.3.579.2.593 1952 Unknown [id number] 2.16.84 0.1.035573.3.579.2.593 1952 Unknown [id number] 2.16.84 0.1.368336.3.579.2.593 1952 Unknown [id number] 2.16.84 0.1.945686.3.579.2.593 1952 Unknown [id number] 2.16.84 0.1.394726.3.579.2.593 1952 Unknown [id number] 2.16.84 0.1.376615.3.579.2.593 1952 Unknown [id number] 2.16.84 0.1.362811.3.579.2.593 1952 Unknown [id number] 2.16.8 40.1.617318.3.579.2.727 1952 Unknown [id number] 2.16.8 40.1.007459.3.579.2.727 1952 Unknown [id number] 2.16.8 40.1.448449.3.579.2.727 1952 Unknown [id number] 2.16.8 40.1.300882.3.579.2.727 1952 Unknown [id number] 2.16.8 40.1.364995.3.579.2.727 1952 Unknown [id number] 2.16.8 40.1.256920.3.579.2.727 1952 Unknown [id number] 2.16.8 40.1.377694.3.579.2.727 1952 Unknown [id number] 2.16.8 40.1.660616.3.579.2.727 1952 Unknown [id number] 2.16.8 40.1.159837.3.579.2.727 1952 Unknown [id number] 2.16.8 40.1.854175.3.579.2.727 1952 Unknown [id number] 2.16.8 40.1.906654.3.579.2.727 1952 Unknown [id number] 2.16.8 40.1.673265.3.579.2.727 1952 Unknown [id number] 2.16.8 40.1.692262.3.579.2.727 1952 Unknown [id number] 2.16.8 40.1.884814.3.579.2.727 1952 Unknown [id number] 2.16.8 40.1.072892.3.579.2.727 1952 Unknown [id number] 2.16.8 40.1.156430.3.579.2.727 1952 Unknown [id number] 2.16.8 40.1.584733.3.579.2.727 1952 Unknown [id number] 2.16.8 40.1.944659.3.579.2.727 1952 Unknown [id number] 2.16.8 40.1.894543.3.579.2.727 1952 Unknown [id number] 2.16.8 40.1.904992.3.579.2.727 1952 Unknown [id number] 2.16.8 40.1.945971.3.579.2.727 1952 Unknown [id number] 2.16.8 40.1.036836.3.579.2.727 1952 Unknown [id number] 2.16.8 40.1.766093.3.579.2.727 1952 Unknown [id number] 2.16.8 40.1.348730.3.579.2.727 1952 Unknown [id number] 2.16.8 40.1.406732.3.579.2.727 1952 Unknown [id number] 2.16.8 40.1.393771.3.579.2.727 1952 Unknown [id number] 2.16.8 40.1.556980.3.579.2.727 1952 Unknown [id number] 2.16.8 40.1.294842.3.579.2.727 1952 Unknown [id number] 2.16.8 40.1.798171.3.579.2.727 1952 Unknown [id number] 2.16.8 40.1.969513.3.579.2.727 1952 Unknown [id number] 2.16.8 40.1.836631.3.579.2.727 1952 Unknown [id number] 2.16.8 40.1.852388.3.579.2.727 Social History Date Type Detail Facility Tobacco smoking status [facility] Sex Assigned At Male [facility] Start: 10-08-2023 End: 05-20-2024 Tobacco smoking status Ex-smoker (finding) [facility] Comment on above: Patient states he sm oked 1 PPD from 19 y.o. to 69 y.o. Start: 12-13-2023 Tobacco smoking status Former smokeless tobacco user, quit more than 30 days ago [facility] Comment on above: Patient states he sm oked 1 PPD from 19 y.o. to 69 y.o. Functional Status Date Assessment Result Facility 05-20-2024 Functional Status N/A [facility] 04-17-2024 Functional Status N/A [facility] 04-14-2024 Functional Status N/A [facility] 04-07-2024 Functional Status No [facility] 12-13-2023 Functional Status No [facility] 10-08-2023 Functional Status N/A [facility] 08-05-2023 Functional Status N/A [facility] Clinical Notes 12-19-2019 to 04-27-2024 Note Date & Type Note Facility 04-27-2024 Note Procedure LHC poss PCI via right radial for preop risk assessment in patient with nondiagnostic stress test Patient seen and examined. The risk/benefits of the procedure were thoroughly discussed with patient including specific attention to lack of onsite surgical backup and risk of shahrzad covid, and the patient agrees to proceed. Airway Assessment: Class I: Visualization of the soft palate, fauces, uvula, anterior and posterior pillars Airway Abnormalities: none ASA Classification: ASA 2: Mild systemic disease Risks/Benefits of IV Sedation: Have been explained IV Sedation Plan: Patient agrees to IV sedation plan [facility] Comment on above: Result Comment: Elec tronically Signed By: Mica GUERIN, Aditya Orta\.br\Date and Time Signed: 04/27/24 12:02 EDT 04-21-2024 Note [id number] [facility] 04-17-2024 Hospital Discharge instructions Patient Education 04/17/2024 07:44:44 Cardiovascular Discharge Instructions - Revised 11/16/15 (CUSTOM) [place], [place] DISCHARGE INSTRUCTIONS Diet: Resume pre-procedure diet. Increase water intake the next 2 days to flush dye out of the body. Activity: Limit activity today. Do not operate a vehicle, machinery or power tools. NO LIFTING OVER 10 POUNDS (a gallon of milk weighs 8 pounds) for 3 days. Limit climbing stairs, bending, squatting and stooping for 3 days. May resume driving in 24 hours. Let pain/discomfort guide your activity. If you are having pain, stop. Medications: Resume pre-procedure medication, unless otherwise directed. Hold the following medications for 48 hours post procedure: Actoplus MetGlucophageGlucophage XR GlucovanceAvandametFortamet Ymk-znyyjddkvFjhfkgSbiu-kguajvzjm GlumetzaJanumetMetaglip RiometGlycomet *Minimal pain, soreness and/or discomfort is expected. *You may take OTC non-steroidal anti-inflammatory to manage discomfort, unless contraindicated. If pain is not controlled with the above medications, contact your physician. Wound Care: Do not remove dressing for 24 hours unless it becomes saturated, then replace. Keep site clean and dry; inspect site daily. May shower 24 hours after the procedure. Clean site with soap and water. Pat dry and apply band aid. No tub baths, swimming or hot tubs for 3 days. Notify Physician if excessive bleeding, signs/symptoms of infection (warmth at site, fever, redness) or excessive pain at site. Post Procedure: Soreness and tenderness to the site can last up to one week. Bruising may occur to groin. Keep follow-up appointment. No smoking for 24 hours as it increases the risk of developing blood clots. If you are interested in smoking cessation, contact [facility] at [phone], ext. [phone]. In the event you are unable to reach your physician, please call [facility] at [phone] and the heel coverer machine operator will assist you. Discharging Nurse Physician Date/Time Patient or Responsible Alliance Party Revised 07-02, 03-03, 12-07, - Follow Up Care 04/08/2024 10:03:08 With:Paul Barbosa Address: [address] [address]- [phone] Business (1) When:05/20/2024 09:45:00 [facility] 04-14-2024 Hospital Discharge instructions Patient Education 04/14/2024 13:24:17 Benign Prostatic Hyperplasia Benign Prostatic Hyperplasia Benign prostatic hyperplasia (BPH) is an enlarged prostate gland that is caused by the normal aging process. The prostate may get bigger as a man gets older. The condition is not caused by cancer. The prostate is a walnut-sized gland that is involved in the production of semen. It is located in front of the rectum and below the bladder. The bladder stores urine. The urethra carries stored urine out of the body. An enlarged prostate can press on the urethra. This can make it harder to pass urine. The buildup of urine in the bladder can cause infection. Back pressure and infection may progress to bladder damage and kidney (renal) failure. What are the causes? This condition is part of the normal aging process. However, not all men develop problems from this condition. If the prostate enlarges away from the urethra, urine flow will not be blocked. If it enlarges toward the urethra and compresses it, there will be problems passing urine. What increases the risk? This condition is more likely to develop in men older than 50 years. What are the signs or symptoms? Symptoms of this condition include: Getting up often during the night to urinate. Needing to urinate frequently during the day. Difficulty starting urine flow. Decrease in size and strength of your urine stream. Leaking (dribbling) after urinating. Inability to pass urine. This needs immediate treatment. Inability to completely empty your bladder. Pain when you pass urine. This is more common if there is also an infection. Urinary tract infection (UTI). How is this diagnosed? This condition is diagnosed based on your medical history, a physical exam, and your symptoms. Tests will also be done, such as: A post-void bladder scan. This measures any amount of urine that may remain in your bladder after you finish urinating. A digital rectal exam. In a rectal exam, your health care provider checks your prostate by putting a lubricated, gloved finger into your rectum to feel the back of your prostate gland. This exam detects the size of your gland and any abnormal lumps or growths. An exam of your urine (urinalysis). A prostate specific antigen (PSA) screening. This is a blood test used to screen for prostate cancer. An ultrasound. This test uses sound waves to electronically produce a picture of your prostate gland. Your health care provider may refer you to a specialist in kidney and prostate diseases (urologist). How is this treated? Once symptoms begin, your health care provider will monitor your condition (active surveillance or watchful waiting). Treatment for this condition will depend on the severity of your condition. Treatment may include: Observation and yearly exams. This may be the only treatment needed if your condition and symptoms are mild. Medicines to relieve your symptoms, including: ?Medicines to shrink the prostate. ?Medicines to relax the muscle of the prostate. Surgery in severe cases. Surgery may include: ?Prostatectomy. In this procedure, the prostate tissue is removed completely through an open incision or with a laparoscope or robotics. ?Transurethral resection of the prostate (TURP). In this procedure, a tool is inserted through the opening at the tip of the penis (urethra). It is used to cut away tissue of the inner core of the prostate. The pieces are removed through the same opening of the penis. This removes the blockage. ?Transurethral incision (TUIP). In this procedure, small cuts are made in the prostate. This lessens the prostate's pressure on the urethra. ?Transurethral microwave thermotherapy (TUMT). This procedure uses microwaves to create heat. The heat destroys and removes a small amount of prostate tissue. ?Transurethral needle ablation (TUNA). This procedure uses radio frequencies to destroy and remove a small amount of prostate tissue. ?Interstitial laser coagulation (ILC). This procedure uses a laser to destroy and remove a small amount of prostate tissue. ?Transurethral electrovaporization (TUVP). This procedure uses electrodes to destroy and remove a small amount of prostate tissue. ?Prostatic urethral lift. This procedure inserts an implant to push the lobes of the prostate away from the urethra. Follow these instructions at home: Take wzio-qce-jidvigq and prescription medicines only as told by your health care provider. Monitor your symptoms for any changes. Contact your health care provider with any changes. Avoid drinking large amounts of liquid before going to bed or out in public. Avoid or reduce how much caffeine or alcohol you drink. Give yourself time when you urinate. Keep all follow-up visits. This is important. Contact a health care provider if: You have unexplained back pain. Your symptoms do not get better with treatment. You develop side effects from the medicine you are taking. Your urine becomes very dark or has a bad smell. Your lower abdomen becomes distended and you have trouble passing urine. Get help right away if: You have a fever or chills. You suddenly cannot urinate. You feel light-headed or very dizzy, or you faint. There are large amounts of blood or clots in your urine. Your urinary problems become hard to manage. You develop moderate to severe low back or flank pain. The flank is the side of your body between the ribs and the hip. These symptoms may be an emergency. Get help right away. Call 911. Do not wait to see if the symptoms will go away. Do not drive yourself to the hospital. Summary Benign prostatic hyperplasia (BPH) is an enlarged prostate that is caused by the normal aging process. It is not caused by cancer. An enlarged prostate can press on the urethra. This can make it hard to pass urine. This condition is more likely to develop in men older than 50 years. Get help right away if you suddenly cannot urinate. This information is not intended to replace advice given to you by your health care provider. Make sure you discuss any questions you have with your health care provider. Document Revised: 05/30/2022 Document Reviewed: 05/30/2022 [employer] Patient Education 2022 [employer]. 04/14/2024 13:24:15 Urinary Incontinence Urinary Incontinence Urinary incontinence refers to a condition in which a person is unable to control where and when to pass urine. A person with this condition will urinate involuntarily. This means that the person urinates when he or she does not mean to. What are the causes? This condition may be caused by: Medicines. Infections. Constipation. Overactive bladder muscles. Weak bladder muscles. Weak pelvic floor muscles. These muscles provide support for the bladder, intestine, and, in women, the uterus. Enlarged prostate in men. The prostate is a gland near the bladder. When it gets too big, it can pinch the urethra. With the urethra blocked, the bladder can weaken and lose the ability to empty properly. Surgery. Emotional factors, such as anxiety, stress, or post-traumatic stress disorder (PTSD). Spinal cord injury, nerve injury, or other neurological conditions. Pelvic organ prolapse. This happens in women when organs move out of place and into the vagina. This movement can prevent the bladder and urethra from working properly. What increases the risk? The following factors may make you more likely to develop this condition: Age. The older you are, the higher the risk. Obesity. Being physically inactive. and childbirth. Menopause. Diseases that affect the nerves or spinal cord. Long-term, or chronic, coughing. This can increase pressure on the bladder and pelvic floor muscles. What are the signs or symptoms? Symptoms may vary depending on the type of urinary incontinence you have. They include: A sudden urge to urinate, and passing urine involuntarily before you can get to a bathroom (urge incontinence). Suddenly passing urine when doing activities that force urine to pass, such as coughing, laughing, exercising, or sneezing (stress incontinence). Needing to urinate often but urinating only a small amount, or constantly dribbling urine (overflow incontinence). Urinating because you cannot get to the bathroom in time due to a physical disability, such as arthritis or injury, or due to a communication or thinking problem, such as Alzheimer's disease (functional incontinence). How is this diagnosed? This condition may be diagnosed based on: Your medical history. A physical exam. Tests, such as: ?Urine tests. ?X-rays of your kidney and bladder. ?Ultrasound. ?CT scan. ?Cystoscopy. In this procedure, a health care provider inserts a tube with a light and camera (cystoscope) through the urethra and into the bladder to check for problems. ?Urodynamic testing. These tests assess how well the bladder, urethra, and sphincter can store and release urine. There are different types of urodynamic tests, and they vary depending on what the test is measuring. To help diagnose your condition, your health care provider may recommend that you keep a log of when you urinate and how much you urinate. How is this treated? Treatment for this condition depends on the type of incontinence that you have and its cause. Treatment may include: Lifestyle changes, such as: ?Quitting smoking. ?Maintaining a healthy weight. ?Staying active. Try to get 150 minutes of moderate-intensity exercise every week. Ask your health care provider which activities are safe for you. ?Eating a healthy diet. ?Avoid high-fat foods, like fried foods. ?Avoid refined carbohydrates like white bread and white rice. ?Limit how much alcohol and caffeine you drink. ?Increase your fiber intake. Healthy sources of fiber include beans, whole grains, and fresh fruits and vegetables. Behavioral changes, such as: ?Pelvic floor muscle exercises. ?Bladder training, such as lengthening the amount of time between bathroom breaks, or using the bathroom at regular intervals. ?Using techniques to suppress bladder urges. This can include distraction techniques or controlled breathing exercises. Medicines, such as: ?Medicines to relax the bladder muscles and prevent bladder spasms. ?Medicines to help slow or prevent the growth of a man's prostate. ?Botox injections. These can help relax the bladder muscles. Treatments, such as: ?Using pulses of electricity to help change bladder reflexes (electrical nerve stimulation). ?For women, using a medical technicians to prevent urine leaks. This is a small, tampon-like, disposable device that is inserted into the urethra. ?Injecting collagen or carbon beads (bulking agents) into the urinary sphincter. These can help thicken tissue and close the bladder opening. ?Surgery. Follow these instructions at home: Lifestyle Limit alcohol and caffeine. These can fill your bladder quickly and irritate it. Keep yourself clean to help prevent odors and skin damage. Ask your health care provider about special skin creams and cleansers that can protect the skin from urine. Consider wearing pads or adult diapers. Make sure to change them regularly, and always change them right after experiencing incontinence. General instructions Take alsm-gpb-sglxyod and prescription medicines only as told by your health care provider. Use the bathroom about every 3 4 hours, even if you do not feel the need to urinate. Try to empty your bladder completely every time. After urinating, wait a minute. Then try to urinate again. Make sure you are in a relaxed position while urinating. If your incontinence is caused by nerve problems, keep a log of the medicines you take and the times you go to the bathroom. Keep all follow-up visits. This is important. Where to find more information National [employer] of Diabetes and Digestive and Kidney Diseases: www.niddk.nih.gov [place] [employer]: www.urologyhealth.org Contact a health care provider if: You have pain that gets worse. Your incontinence gets worse. Get help right away if: You have a fever or chills. You are unable to urinate. You have redness in your groin area or down your legs. Summary Urinary incontinence refers to a condition in which a person is unable to control where and when to pass urine. This condition may be caused by medicines, infection, weak bladder muscles, weak pelvic floor muscles, enlargement of the prostate (in men), or surgery. Factors such as older age, obesity, and childbirth, menopause, neurological diseases, and chronic coughing may increase your risk for developing this condition. Types of urinary incontinence include urge incontinence, stress incontinence, overflow incontinence, and functional incontinence. This condition is usually treated first with lifestyle and behavioral changes, such as quitting smoking, eating a healthier diet, and doing regular pelvic floor exercises. Other treatment options include medicines, bulking agents, medical devices, electrical nerve stimulation, or surgery. This information is not intended to replace advice given to you by your health care provider. Make sure you discuss any questions you have with your health care provider. Document Revised: 06/16/2021 Document Reviewed: 06/16/2021 [employer] Patient Education 2022 [employer]. 04/14/2024 13:24:11 Acute Urinary Retention, Male Acute Urinary Retention, Male Acute urinary retention is a condition in which a person is unable to pass urine or can only pass a little urine. This condition can happen suddenly and [...] As men age, their prostate may become larger and may start to press or squeeze on the bladder or the urethra. Other chronic health conditions can increase the risk of acute urinary retention. These include: Diseases such as multiple sclerosis. Spinal cord injuries. Diabetes. Degenerative cognitive conditions, such as delirium or dementia. Psychological conditions. A man may hold his urine due to trauma or because he does not want to use the bathroom. What are the signs or symptoms? [...] Follow these instructions at home: Medicines Take tjbg-whr-tkpyfvr and prescription medicines only as told by your health care provider. Avoid certain medicines, such as decongestants, antihistamines, and some prescription medicines. Do not take any medicine unless your health care provider approves. If you were prescribed an antibiotic medicine, take it as told by your health care provider. Do not stop using the antibiotic even if you start to feel better. General instructions Do not use any products that contain nicotine or tobacco. These products include cigarettes, chewing tobacco, and vaping devices, such as e-cigarettes. If you need help quitting, ask your health care provider. Drink enough fluid to keep your urine [...] to pass urine or can only pass a little urine. If left untreated, this condition can [...] provider. Document Revised: 08/02/2021 Document Reviewed: 08/02/2021 [employer] Patient Education 2022 [employer] Follow Up Care 03/10/2024 12:55:54 With:ELEAZAR Luis APRN, DARIUS Bustamante, URL Address: When: Unknown Comments:or another BELA for cath change, 4 wks [facility] 04-14-2024 Hospital Discharge instructions Follow Up Care 04/14/2024 13:09:53 With:ESPERANZA LIVE PA-C, URL Address: [address] [place] [phone] When: Unknown [facility] 12-24-2023 Note Echocardiology Procedure Exam Date/Time Accession # [id number] Echo Transthoracic 12/19/2023 08:56 EST [id number] Cortez Degroot MD Complete CPT code 27994 11967 Reason for Exam (Echo Transthoracic Complete) Shortness of breath (SOB);Z76.89 Report Version: 1 Study ID: [id number] [facility] [address] [place] [address] Adult Echocardiogram Report Name: EUGENIA GIL Mindy Study Date: 12/19/2023, 8: 13 AM Patient Location: [facility] : 1950 (MM/DD/YYYY) Gender: Male Age: 73 Years Height: 180.34 cm BP: 139 / 83 mmHg Weight: 152.863 kg HR: 75 bpm BSA: 2.6 m? Ordering Physician: Cortez Degroot Referring Physician: Cortez Degroot Performed By: Aleksandra Wright RDCS Reason For Study: Shortness of breath (SOB) History: Smoker-Quit, SOB, Morbid obesity, DVT Interpretation Summary Ejection Fraction = 60-65%. Normal LV and RV. No significant valve disease. Normal estimated PA pressure. Impaired diastolic relaxation. Dilated aortic root and ascending aorta. Procedure A complete two-dimensional transthoracic echocardiogram was performed (2D, M-mode, spectral and color flow Doppler). Study quality is good. Left Ventricle The left ventricle is normal in size. There is normal left ventricular wall thickness. Ejection Fraction = 60-65%. The left ventricular wall motion is normal. Grade I diastolic dysfunction, (abnormal relaxation pattern). Echocardiology Report Left Atrium The left atrial size is normal. Right Atrium Right atrial size is normal. Right Ventricle The right ventricular systolic function is normal. The right ventricle is normal size. The right ventricular wall motion is normal. Aortic Valve The aortic valve is trileaflet. No aortic regurgitation. There is no aortic stenosis. Mitral Valve The mitral valve is normal in structure and function. There is no mitral regurgitation noted. No mitral valve stenosis. Tricuspid Valve Structurally normal tricuspid valve. No evidence of tricuspid regurgitation. Right ventricular systolic pressure is normal. Pulmonic Valve No evidence of stenosis. There is no pulmonic valve regurgitation. Arteries The aortic root is moderately dilated. The ascending aorta is moderately dilated. Pulmonary artery diameter is normal. Venous The inferior vena cava is normal in size, and collapses normally with respiration. Effusion There is no pericardial effusion. Left Ventricle IVSd: 1.81 cm LVIDd: 5.4 cm LVPWd: 1.84 cm LVIDs: 3.2 cm EDV(MOD-sp4): 103.0 ml LVLd ap4: 8.0 cm ESV(MOD-sp4): 36.9 ml LVLs ap4: 7.2 cm EDV(MOD-sp2): 110.0 ml LVLd ap2: 8.0 cm ESV(MOD-sp2): 42.3 ml LVLs ap2: 7.5 cm Right Ventricle TAPSE: 2.09 cm Aortic Valve LV V1 max: 115.7 cm/sec LV V1 max P.4 mmHg Ao max P.9 mmHg Ao V2 max: 131.7 cm/sec Tricuspid Valve TR max P.7 mmHg TR max radha: 337.8 cm/sec Aorta Ao root diam: 4.4 cm asc Aorta Diam: 3.8 cm Atria LA dimension: 4.3 cm Diastolic funtion Med Peak E' Radha: 6.0 cm/sec Lat Peak E' Radha: 7.9 cm/sec Echocardiology Report MV dec time: 0.22 sec MV E max radha: 63.8 cm/sec MV A max radha: 95.5 cm/sec Ao max P.9 mmHg Ao root area: 15.1 cm? Ao root diam: 4.4 cm Ao V2 max: 131.7 cm/sec AV VR: 0.88 EDV(MOD-sp4): 103.0 ml EDV(Teich): 139.9 ml EF(MOD-sp4): 64.2 % EF(Teich): 70.3 % ESV(MOD-sp4): 36.9 ml ESV(Teich): 41.6 ml FS: 40.1 % IVC Diam: 2.48 cm IVSd: 1.81 cm LA dimension: 4.3 cm LV V1 max: 115.7 cm/sec LV V1 max P.4 mmHg LVIDd: 5.4 cm LVIDs: 3.2 cm LVLd ap4: 8.0 cm LVLs ap4: 7.2 cm LVPWd: 1.84 cm MV A max radha: 95.5 cm/sec MV dec time: 0.22 sec MV E max radha: 63.8 cm/sec MV E/A: 0.67 RAP systole: 8.0 mmHg RVDd: 3.9 cm RVIDd/LVIDd: 0.72 RVSP(TR): 53.7 mmHg SV(MOD-sp4): 66.1 ml TAPSE: 2.09 cm TR max P.7 mmHg TR max radha: 337.8 cm/sec asc Aorta Diam: 3.8 cm E/E' Lat: 8.0 E/E' Med: 10.7 EDV(MOD-sp2): 110.0 ml EF (MOD-bp): 62.4 % EF(MOD-sp2): 61.5 % ESV(MOD-sp2): 42.3 ml LA Vol Index: 19.9 ml/m? Lat Peak E' Radha: 7.9 cm/sec LVLd ap2: 8.0 cm LVLs ap2: 7.5 cm Med Peak E' Radha: 6.0 cm/sec Echocardiology Report Electronically signed by: Aditya Nino MD 12/24/2023, 5: 20 AM FINAL REPORT Dictated: 12/19/2023 8:13 am Aditya Nino MD Signed (Electronic Signature): 12/24/2023 5:21 am Signed by: Aditya Nino MD Transcribed by: [facility] Technologist: OSMAR [facility] 10-08-2023 Hospital Discharge instructions Patient Education 10/08/2023 12:33:31 Transurethral Resection [...] including vitamins, herbs, eye drops, creams, and cerc-fnz-oflgtoa medicines. Any problems you or family members [...] provider tells you to take them. Taking nbqd-dhm-esvijyp medicines, vitamins, herbs, and supplements. Surgery safety [...] provider. Document Revised: 08/07/2022 Document Reviewed: 08/07/2022 [employer] Patient Education 2022 [employer]. Follow Up Care 08/12/2023 13:22:25 With:JENN GUERIN, Shahab Carrasquillo, URL Address: [address] [place] [address]- When: Unknown [facility] 09-03-2023 Note [id number] [facility] 08-12-2023 Evaluation note Encounter Date Diagnosis [...] Contact dermatitis home care material was printed [employer] Other 09-11-2023 Hospital Discharge instructions Patient Education [...] including vitamins, herbs, eye drops, creams, and hmjw-nbw-lbdivwr medicines. ?Whether you are or may be [...] provider. Document Revised: 07/25/2022 Document Reviewed: 06/16/2021 [employer] Patient Education 2022 [employer] 08/05/2023 13:14:39 Cystoscopy Cystoscopy Cystoscopy is [...] including vitamins, herbs, eye drops, creams, and ufmj-ref-hbwxtcn medicines. Any problems you or family members [...] provider tells you to take them. Taking hbii-aow-viwenjy medicines, vitamins, herbs, and supplements. Tests You [...] Follow these instructions at home: Medicines Take jtre-xog-lvbtgop and prescription medicines only as told by [...] provider. Document Revised: 07/25/2022 Document Reviewed: 06/23/2021 [employer] Patient Education 2022 [employer]. 08/05/2023 13:14:16 Acute Urinary Retention, Male Acute [...] Follow these instructions at home: Medicines Take qkeu-fwt-toirgjy and prescription medicines only as told by [...] provider. Document Revised: 08/02/2021 Document Reviewed: 08/02/2021 [employer] Patient Education 2022 [employer]. Follow Up Care 07/11/2023 10:33:42 With:JENN GUERIN, Shahab Carrasquillo, URL Address: [facility] [address] , [place] [address] [phone] When: Unknown Comments:sched Cysto/UDS [facility] 01-25-2020 Evaluation + Plan note Future Appointments Appointment Date:12/19/2023 08:00:00 AM Scheduled Provider: [facility] Type:CV Echo (FT) Appointment Date:12/19/2023 09:00:00 AM Scheduled Provider: [facility] App[facility] Type:NM Myocard Spect Multi Rest/Stress-Res Appointment Date:12/19/2023 10:00:00 AM Scheduled Provider: [facility] Appointment Type:NM Myocard Spect Multi Rest/Stress - R Appointment Date:12/20/2023 02:30:00 PM Scheduled Provider: [facility] Appointment Type:NM Myocard Spect MultiRest/Stress-Stre Appointment Date:12/20/2023 03:30:00 PM Scheduled Provider: [facility] Appointment Type:NM Myocard Spect Multi Rest/Stress - S Appointment Date:12/30/2023 03:00:00 PM Scheduled Provider:Cortez Degroot MD Location:[facility] Appointment Type:FM Open Appointment Date:01/06/2024 11:00:00 AM Scheduled Provider: Location:[facility] Day Appointment Type:URO Nurse Visit Appointment Date:03/13/2024 01:15:00 PM Scheduled Provider:Aditya Nino MD Location[facility] Appointment Type:Cardiology Follow Up (FT) Future Scheduled Tests Radiology* Echo Transthoracic Complete 12/19/23 * NM Myocardial Spect Rest/Stress 2 Day 12/19/23 * NM Myocardial Spect Part 2 11/28/23 * [facility]ments Appointment Date:08/12/2023 01:00:00 PM Scheduled Provider: Location:[facility] Appointment Type:URO Nurse Visit Appointment Date:08/30/2023 08:15:00 AM Scheduled Provider: Location:[facility] Appointment Type:Urology CALL PAT FT Appointment Date:09/03/2023 03:00:00 PM Scheduled Provider: Location:[facility] Appointment Type:Urology FT Appointment Date:09/03/2023 03:45:00 PM Scheduled Provider: Location:[facility] Appointment Type:Urology FT Diagnostic Tests Pending * PSA Screen, Total 08/05/23 [facility] evaluation + Plan note Future Appointments Appointment Date:08/30/2023 08:15:00 AM Scheduled Provider: Location:[facility] Appointment Type:Urology CALL PAT FT Appointment Date:09/03/2023 03:00:00 PM Scheduled Provider: Location:[facility] Appointment Type:Urology FT Appointment Date:09/03/2023 03:45:00 PM Scheduled Provider: Location:[facility] Appointment Type:Urology FT Appointment Date:10/07/2023 01:00:00 PM Scheduled Provider: Location:[facility] Appointment Type:URO Nurse Visit [facility] evaluation + Plan note Future Appointments Appointment Date:12/20/2023 11:00:00 AM Scheduled Provider:Shahab PATTON MD Location:[facility] Appointment Type:URO Office Visit [facility] evaluation + Plan note Future Appointments Appointment Date:12/09/2023 10:00:00 AM Scheduled Provider: Location:[facility] Appointment Type:URO Nurse Visit Appointment Date:12/13/2023 10:15:00 AM Scheduled Provider:Aditya Nino MD Location:[facility] Appointment Type:Cardiology New Patient (FT) Appointment Date:12/19/2023 08:00:00 AM Scheduled Provider: [facility] Appointment Type:CV Echo (FT) Appointment Date:12/19/2023 09:00:00 AM Scheduled Provider: [facility] Appointment Type:NM Myocard Spect Multi Rest/Stress-Res Appointment Date:12/19/2023 10:00:00 AM Scheduled Provider: [facility] Appointment Type:NM Myocard Spect Multi Rest/Stress - R Appointment Date:12/20/2023 02:30:00 PM Scheduled Provider: [facility] Appointment Type:NM Myocard Spect MultiRest/Stress-Stre Appointment Date:12/20/2023 03:30:00 PM Scheduled Provider: [facility] Appointment Type:NM Myocard Spect Multi Rest/Stress - S Appointment Date:12/30/2023 03:00:00 PM Scheduled Provider:Cortez Degroot MD Location:[facility] Appointment Type:FM Open Future Scheduled Tests Radiology* Echo Transthoracic Complete 12/19/23 * NM Myocardial Spect Rest/Stress 2 Day 12/19/23 * NM Myocardial Spect Part 2 11/28/23 * XR Chest 2 Views 11/28/23 [facility] Evaluation + Plan note Future Appointments Appointment Date:12/13/2023 10:15:00 AM Scheduled Provider:Aditya Nino MD Location:[facility] Appointment Type:Cardiology New Patient (FT) Appointment Date:12/19/2023 08:00:00 AM Scheduled Provider: [facility] Appointment Type:CV Echo (FT) Appointment Date:12/19/2023 09:00:00 AM Scheduled Provider: [facility] Appointment Type:NM Myocard Spect Multi Rest/Stress-Res Appointment Date:12/19/2023 10:00:00 AM Scheduled Provider: [facility] Appointment Type:NM Myocard Spect Multi Rest/Stress - R Appointment Date:12/20/2023 02:30:00 PM Scheduled Provider: [facility] Appointment Type:NM Myocard Spect MultiRest/Stress-Stre Appointment Date:12/20/2023 03:30:00 PM Scheduled Provider: [facility] Appointment Type:NM Myocard Spect Multi Rest/Stress - S Appointment Date:12/30/2023 03:00:00 PM Scheduled Provider:Cortez Degroot MD Location:[facility] Appointment Type: Open Appointment Date:01/06/2024 11:00:00 AM Scheduled Provider: Location:[facility] Appointment Type:URO Nurse Visit Future Scheduled Tests Radiology* Echo Transthoracic Complete 12/19/23 * NM Myocardial Spect Rest/Stress 2 Day 12/19/23 * NM Myocardial Spect Part 2 11/28/23 * XR Chest 2 Views 11/28/23 [facility] evaluation + Plan note Future Appointments Appointment Date:01/16/2024 08:00:00 AM Scheduled Provider: [facility] Appointment Type:CV Echo Stress (FT) Appointment Date:02/03/2024 11:30:00 AM Scheduled Provider: Location:[facility] Appointment Type:URO Nurse Visit Appointment Date:03/09/2024 01:15:00 PM Scheduled Provider:Cortez Degroot MD Location:[facility] Appointment Type: Open Appointment Date:03/13/2024 01:15:00 PM Scheduled Provider:Aditya Nino MD [facility] Type:Cardiology Follow Up (FT) Future Scheduled Tests Radiology* EC Stress Echo Complete w/ Contrast 01/16/24 * NM Myocardial Spect Part 2 11/28/23 * XR Chest 2 Views 11/28/23 [facility] evaluation + Plan note Future Appointments Appointment Date:02/11/2024 01:00:00 PM Scheduled Provider: Location:[facility] Appointment Type:URO Nurse Visit Appointment Date:03/09/2024 01:15:00 PM Scheduled Provider:Cortez Degroot MD Location:[facility] Appointment Type:FM Open Appointment Date:03/13/2024 01:15:00 PM Scheduled Provider:Aditya Nino MD Location:[facility] Appointment Type:Cardiology Follow Up (FT) Future Scheduled Tests Radiology* NM Myocardial Spect Part 2 11/28/23 * XR Chest 2 Views 11/28/23 [facility] Future App[facility]ments Appointment Date:03/09/2024 01:15:00 PM Scheduled Provider:Cortez Degroot MD Location:[facility] Appointment Type: Open Appointment Date:03/10/2024 01:00:00 PM Scheduled Provider: Location:[facility] Appointment Type:URO Nurse Visit Appointment Date:03/13/2024 01:15:00 PM Scheduled Provider:Aditya Nino MD Location:[facility] Appointment Type:Cardiology Follow Up (FT) Future Scheduled Tests Radiology* NM Myocardial Spect Part 2 11/28/23 * XR Chest 2 Views 11/28/23 [facility] evaluation + Plan note Future Appointments Appointment Date:04/03/2024 01:45:00 PM Scheduled Provider:Rodolfo Alex MD Location:[facility] Appointment Type:Cardiology Follow Up (FT) Appointment Date:04/14/2024 01:00:00 PM Scheduled Provider: Location:[facility] Appointment Type:URO Nurse Visit Appointment Date:05/11/2024 01:00:00 PM Scheduled Provider: Location:[facility] Appointment Type:FM Medicare Wellness Subsequent Appointment Date:05/11/2024 02:00:00 PM Scheduled Provider:Cortez Degroot MD Location:[facility] Appointment Type: Open Future Scheduled Tests Radiology* NM Myocardial Spect Part 2 11/28/23 * XR Chest 2 Views 11/28/23 [facility] evaluation + Plan note Future Appointments Appointment Date:04/14/2024 01:00:00 PM Scheduled Provider: Location:[facility] Appointment Type:URO Nurse Visit Appointment Date:05/11/2024 01:00:00 PM Scheduled Provider: Location:[facility] Appointment Type: Medicare Wellness Subsequent Appointment Date:05/11/2024 02:00:00 PM Scheduled Provider:Cortez Dgeroot MD Location:[facility] Appointment Type: Open Future Scheduled Tests Radiology* CV Cardiovascular 04/08/24 * NM Myocardial Spect Part 2 11/28/23 * XR Chest 2 Views [facility]28/23 [facility] App[facility]ments Appointment Date:04/17/2024 09:00:00 AM Scheduled Provider[facility] Type:CV Heart Cath (FT) Appointment Date:05/11/2024 01:00:00 PM Scheduled Provider: Location:[facility] Appointment Type: Medicare Wellness Subsequent Appointment Date:05/11/2024 02:00:00 PM Scheduled Provider:Cortez Degroot MD Location:[facility] Appointment Type: Open Appointment Date:05/12/2024 01:00:00 PM Scheduled Provider: Location:[facility] Appointment Type:URO Nurse Visit Future Scheduled Tests Radiology* CV Cardiovascular 04/17/24 * NM Myocardial Spect Part 2 11/28/23 * XR Chest 2 Views 11/28/23 [facility] evaluation + Plan note Future Appointments Appointment Date:05/11/2024 01:00:00 PM Scheduled Provider: Location:[facility] Appointment Type: Medicare Wellness Subsequent Appointment Date:05/11/2024 02:00:00 PM Scheduled Provider:Cortez Degroot MD Location:[facility] Appointment Type: Open Appointment Date:05/12/2024 01:00:00 PM Scheduled Provider: Location:[facility] Appointment Type:URO Nurse Visit Appointment Date:05/20/2024 09:45:00 AM Scheduled Provider:Paul Barbosa PA-C [facility] Type:Cardiology Follow Up (FT) Future Scheduled Tests Radiology* NM Myocardial Spect Part 2 11/28/23 * XR Chest 2 Views 11/28/23 [facility] Future App[facility]ments Appointment Date:05/20/2024 09:45:00 AM Scheduled Provider:Paul Barbosa PA-C [facility] Type:Cardiology Follow Up (FT) Appointment Date:06/09/2024 12:30:00 PM Scheduled Provider:ELEAZAR Luis APRN, [place] Location:[facility] Appointment Type:URO Office Visit Appointment Date:07/13/2024 01:15:00 PM Scheduled Provider:Cortez Degroot MD Location:[facility] Appointment Type:FM Open Appointment Date:05/10/2025 02:30:00 PM Scheduled Provider: Location:[facility] Appointment Type:FM Medicare Wellness Subsequent Future Scheduled Tests Radiology* NM Myocardial Spect Part 2 11/28/23 * XR Chest 2 Views 11/28/23 [facility] evaluation + Plan note Future Appointments Appointment Date:06/09/2024 12:30:00 PM Scheduled Provider:ELEAZAR Luis APRN, [place] X Location:[facility] Appointment Type:URO Office Visit Appointment Date:07/13/2024 01:15:00 PM Scheduled Provider:Cortez Degroot MD [facility] Type:FM Open Appointment Date:05/10/2025 02:30:00 PM Scheduled Provider: Location:[facility] Appointment Type: Medicare Wellness Subsequent Future Scheduled Tests Radiology* NM Myocardial Spect Part 2 11/28/23 * XR Chest 2 Views [facility]/28/23 [facility] Future App[facility]ments Appointment Date:07/06/2024 10:00:00 AM Scheduled Provider: Location:[facility] Appointment Type:URO Nurse Visit Appointment Date:07/13/2024 01:15:00 PM Scheduled Provider:Cortez Degroot MD [facility] App[facility] Type:FM Open Appointment Date:07/31/2024 10:45:00 AM Scheduled Provider:Shahab PATTON MD Location:[facility] Appointment Type:URO Office Visit Appointment Date:05/10/2025 02:30:00 PM Scheduled Provider: Location:[facility] Appointment Type:FM Medicare Wellness Subsequent Future Scheduled Tests Radiology* NM Myocardial Spect Part 2 11/28/23 * XR Chest 2 Views 11/28/23 [facility] History general Narrative - Reported* Type Description Date Medical History benign prostatic hypertrophy Medical History DVT Surgical History tonsillectomy Surgical History I & D abscess Hospitalization History See Above [employer] Other Hospital course Narrative No data available for this section [facility] Discharge instructions No data available for this section [facility] progress note No data available for this section [facility] Summary Purpose Family History No Family History Records Found No data available for this section No data available for this section No data available for this section No data available for this section No data available for this section No data available for this section No data available for this section No data available for this section No data available for this section No data available for this section No data available for this section No data available for this section No data available for this section No data available for this section No data available for this section No Family History Records Found No data available for this section No data available for this section No Family History Records Found Advance Directives No Advanced Directives Records FoundNo Advanced Directives Records FoundNo Advanced Directives Records Found Additional Source Comments (unrecognized sect ion and content) No Status Records FoundNo Status Records FoundNo Status Records Found INFORMATION SOURCE (unrecogn ized section and content) DATE CREATED AUTHOR 05/03/2023 [facility] DATE CREATED AUTHOR AUTHOR'S ORGANIZ ATION 05/14/2024 [facility] DATE CREATED AUTHOR AUTHOR'S ORGANIZ ATION 06/11/2024 [facility] Patient Care team informatio n (unrecognized section and content) Personnel Name: Cortez eDgroot MD Address: Address: [address] Personnel Name: Cortez Degroot MD Address: Address: [address] Personnel Name: Cortez Degroot MD Address: Address: [address] Personnel Name: Cortez Degroot MD Address: Address: [address] Personnel Name: Cortez Degroot MD Address: Address: [address] Personnel Name: Cortez Degroot MD Address: Address: [address] Personnel Name: Cortez Degroot MD Address: Address: [address] Personnel Name: Cortez Degroot MD Address: Address: [address] Personnel Name: Cortez Degroot MD Address: Address: [address] Personnel Name: Cortez Degroot MD Address: Address: [address] Personnel Name: Cortez Degroot MD Address: Address: [address] Personnel Name: Cortez Degroot MD Address: Address: [address] Personnel Name: Cortez Degroot MD Address: Address: [address] Personnel Name: Cortez Degroot MD Address: Address: [address] Personnel Name: Cortez Degroot MD Address: Address: [address] Personnel Name: Cortez Degroot MD Address: Address: [address] Personnel Name: Cortez Degroot MD Address: Address: [address] [place] [address]- [place] Personnel Name: Cortez Degroot MD Address: Address: [address] [facility] [place] [address]- Personnel Name: Cortez Degroot MD Address: [facility] [place] [address]- REASON FOR VISIT (unrecogniz ed section and [...] BE BASED ON THE PRIMARY CLINICAL RECORDS. [facility] [employer] provides no warranty or guarantee of the accuracy or completeness of information in this document.
[2024-06-18 14:36] LABS: Basophils Absolute Auto 0.1 10^3/uL (0.0-0.1); Basophils Percent Auto 0.7 % (0.2-2.0); Eosinophils Absolute Auto 0.2 10^3/uL (0.0-0.7); Eosinophils Percent Auto 2.8 % (0.9-7.0); Hematocrit 46.1 % (42.0-54.0); Immature Granulocytes Abs Auto 0.03 10^3/uL (0.00-0.03); Immature Granulocytes Pct Auto 0.4 % (0.0-0.5); Lymphocytes Absolute Auto 1.4 10^3/uL (1.2-3.8); Lymphocytes Percent Auto 16.7 % (20.5-60.0); Mean Corpuscular HGB Conc 30.4 g/dL (29.9-35.2); Mean Corpuscular Hemoglobin 25.7 pg (25.9-34.0); Mean Corpuscular Volume 84.6 fL (80.0-94.0); Mean Platelet Volume 9.1 fL (9.5-13.5); Monocytes Absolute Auto 0.6 10^3/uL (0.3-0.8); Monocytes Percent Auto 6.4 % (1.7-12.0); Neutrophils Absolute Auto 6.2 10^3/uL (1.4-6.5); Platelet Count 236 10^3/uL (150-450); Red Blood Count 5.45 10^6/uL (4.70-6.10); Red Cell Distribution Width 15.3 % (11.0-15.0); White Blood Count 8.6 10^3/uL (4.0-11.0)
[2024-06-18 15:03] LABS: INR 1.62; Prothrombin Time 16.4 sec (9.0-11.6)
[2024-06-18 15:15] LABS: Partial Thromboplastin Time 41.2 sec (22.3-36.2)
[2024-06-18 15:41] LABS: Anion Gap 12.8; BUN Creatinine Ratio 17.2; Calcium 9.5 mg/dL (8.5-10.1); Chloride 101 mmol/L (98-107); Estimated GFR (African America >60 (>=60); Estimated GFR (Non-African Ame >60 (>=60); Glucose 132 mg/dL (74-106); Potassium 4.8 mmol/L (3.5-5.1); Sodium 137 mmol/L (136-145)
== END 2024-06-18 13:31 | disposition home or self-care (01) ==
LOC: PST 13:32
PROVIDERS: PCP Family Medicine; Visit Provider Urology
DX: Z01.810 Encounter for preprocedural cardiovascular examination (principal); Z01.812 Encounter for preprocedural laboratory examination; N40.1 Benign prostatic hyperplasia with lower urinary tract symptoms; I51.7 Cardiomegaly
CPT/HCPCS: 36415; 71046; 80048; 85025; 85610; 85730; 93005

== ENCOUNTER 2024-06-25 00:19 | Outpatient (RCR) | payer MEDICARE, SELFPAY | END 2024-07-24 09:37 | disposition home or self-care (01) | LOC: MM 00:19 | PROVIDERS: PCP Family Medicine; Visit Provider Internal Medicine | DX: Z51.81 Encounter for therapeutic drug level monitoring (principal); Z79.01 Long term (current) use of anticoagulants; I82.409 Acute embolism and thrombosis of unspecified deep veins of unspecified lower extremity | CPT/HCPCS: 85610; G0463 ==

== ENCOUNTER 2024-07-03 10:36 | Observation (INO) | payer MEDICARE, SELFPAY ==
[2024-06-18 13:44] VITALS: BP 132/79; PULSE 74; TEMP 36.3; O2SAT 95; BMI 47.8
[2024-07-02] VITALS (17 sets, daily range): BP systolic 113–142; BP diastolic 65–98; PULSE 84–121; RESP 14; TEMP 36.1–36.4; O2SAT 87–96; BMI 47.4
[2024-07-02 13:48] LABS: INR 1.05; Prothrombin Time 11.1 sec (9.0-11.6)
[2024-07-02] MEDS: LACTATED RINGER'S SOLUTION 1,000 ML 50 ML IV ×2 (13:54→15:17)
[2024-07-02] MEDS: LEVOFLOXACIN IN DEXTROSE 5 % 500 MG/100 ML PIGGYBACK 100 MG IV (13:55)
--- NOTE | 2024-07-02 16:41 | P.URON_ITS ---
Urology Surgery Operative Note Operative Note Procedure Date: 07/02/24 Time Out Performed: yes Pre-op Diagnosis: BPH with LUTS and urinary retention Post-op Diagnosis: same as pre-op Procedures performed: 1. Cystoscopy. 2. Transurethral resection of the prostate. Anesthesia: GETA Primary Surgeon: Shahab Patton Complications: None Estimated blood loss (mL): 25 Findings: Trilobar obstruction and very capacious along the lateral lobes and median lobe Specimens: Prostate chips Drains: 24 [place] three-way coud? Singer catheter taped to traction and CBI Indications for Procedures: This gentleman has BPH with LUTS refractory to medications. He also has gone into a patricio urinary retention. He has very tight trilobar obstruction. He is obstructed urodynamically. He is strongly desirous for TURP. He now presents for this procedure after risks have been explained. Some of these include bleeding, infection, anesthesia, retrograde ejaculation, urinary incontinence both temporary and permanent, erectile dysfunction, persistent urinary retention despite getting a TURP, DVT (he has withheld his Coumadin for 5 days prior to this procedure) and possible need for further operations just to name a few Detailed description of Procedure: The patient was brought to the operating room and placed on the operating room table in the supine position. SCDs were placed on the lower extremities and turned on and functioning during the entire case. Timeout was done by all parties in the room. We all agreed upon the patient's identification and the planned procedures for this patient. Genn. anesthesia was then administered. The patient was then repositioned into the modified dorsal lithotomy position. All pressure points were satisfactorily padded. Genitalia were sterilely prepped and draped in usual fashion. I started by passing a 26 [place] Senthil resectoscope with a standard bipolar loop electrode per urethra and into the bladder. The ureteral orifices were identified and marked with a loop electrode. I started on the very large capacious median lobe and uniformly resected this down to the bladder neck level. I then resected posteriorly from the bladder neck to the Veru. The left lateral lobe was taken down from the bladder neck to the Veru level. Purulence pockets were unroofed. The lobes were extremely large. I then resected the right lateral lobe in a similar fashion. I switched off to the plasma vaporization electrode intermittently for coagulation purposes. The anterior tissue was then taken down. I resected for a full hour and a half and we had a nice channel now but I could have resected for another hour and a half seeing as though his prostate was so large. The Ilich evacuator was used several times to get the chips out of the bladder and these were sent for permanent sections. Upon completion, there was no bleeding remaining. He had an open channel. The scope was removed. I then placed a 24 [place] three-way coud? Singer in the bladder. The catheter was irrigated with a catheter tip syringe verifying good placement. The balloon was filled with 30 cc of fluid. The catheter was then started on CBI after getting taped to traction. It irrigated to a pink color. The anesthetic was then reversed. [facility] and wheeled to PACU in stable condition. Urinary Catheter Management Urinary Catheter Management 3-way Urethral: Cath placed during this visit: no
[2024-07-02] MEDS: 0.9 % SODIUM CHLORIDE 1,000 ML 80 ML IV (17:10)
[2024-07-02] MEDS: SOLIFENACIN SUCCINATE 10 MG TABLET PO (17:19)
[2024-07-02] MEDS: SODIUM CHLORIDE IRRIG SOLUTION 3,000 ML 3000 ML IRR ×5 (17:47→23:35)
[2024-07-02] MEDS: CEFAZOLIN SODIUM/DEXTROSE,ISO 1 GM/50 ML PREMIX IV (23:31)
--- NOTE | 2024-07-02 23:59 | PC.NURSE ---
2247 - Decision made to transfer patient from Rm 220 to 218 for ease of monitoring.
[2024-07-03] VITALS (11 sets, daily range): BP systolic 117–142; BP diastolic 69–82; PULSE 67–86; TEMP 36.5–36.8; O2SAT 88–99; BMI 47.4
[2024-07-03] MEDS: SODIUM CHLORIDE IRRIG SOLUTION 3,000 ML 3000 ML IRR ×5 (00:40→04:53)
[2024-07-03] MEDS: CEFAZOLIN SODIUM/DEXTROSE,ISO 1 GM/50 ML PREMIX IV (03:20)
[2024-07-03] MEDS: 0.9 % SODIUM CHLORIDE 1,000 ML 80 ML IV (04:53)
--- NOTE | 2024-07-03 09:11 | XR_ITS ---
The [address] [address] Patient Name: EUGENIA WOODSON MRN: [id number] date: 1950 Sex: M Assigned Patient Location: [place] Current Patient Location: [place] Accession/Order Number: [id number] Exam Date: 07/03/2024 09:30 Report Date: 07/03/2024 10:19 At the request of: SHAIKH MABEL Procedure: XR chest 2V EXAM: CHEST 2 VIEWS HISTORY: sob/hypoxia TECHNIQUE: PA and lateral views chest. COMPARISON: 06/18/2024 FINDINGS: The lungs are hyperinflated with bibasilar atelectasis. There is no focal lung consolidation, pleural effusion or pneumothorax. Pulmonary vasculature is within normal limits. Mild tortuosity of the thoracic aorta. Heart size is mild to moderately enlarged, stable. XR/XR chest 2V IMPRESSION: 1. Pulmonary hyperinflation with mild bibasilar atelectasis. No consolidation. 2. Stable cardiomegaly. Electronically authenticated by: JOEL DAVIES Date: 07/03/2024 10:19
[2024-07-03] MEDS: SOLIFENACIN SUCCINATE 10 MG TABLET PO (09:51)
--- NOTE | 2024-07-03 10:53 | CM.NOTE ---
Rounds made with Dr. Aranda. Dr Aranda consulted due to Eliud requiring O2 post procedure. Dr Aranda discussed treatment plan of weaning off of O2 and also need for CXR. Eliud verbalized understanding. Possible discharge later today depending on CXR & if able to wean off O2.
[2024-07-03] MEDS: IPRATROPIUM/ALBUTEROL SULFATE 3 ML AMPUL.NEB IH ×2 (11:29→14:41)
--- NOTE | 2024-07-03 11:30 | SWNOTE1 ---
SW met with pt to discuss dc needs. Pt lives at home by himself. He is independent and does still drive and does his own grocery shopping. Pt does not use any assistive devices. Pt does have 2 daughters close by if he needs assistance. No anticipated discharge needs at this time. SW to follow as needed. Medicare Outpatient Observation Notice reviewed and discussed with patient. Pt. verbalized understanding and signed the form. Original given to patient and copy placed in patient?s chart.
--- NOTE | 2024-07-03 11:33 | RESP.RT ---
Tx given- lung sounds clear, slightly diminished. Tx given on 8L oxygen. SpO2 will be deceivingly elevated post tx. Please wait to attempt to titrate oxygen.
[2024-07-03] MEDS: FUROSEMIDE 40 MG/4 ML VIAL IVP (11:49)
[2024-07-03 13:33] LABS: Basophils Percent Auto 0.3 % (0.2-2.0); Eosinophils Absolute Auto 0.1 10^3/uL (0.0-0.7); Eosinophils Percent Auto 0.7 % (0.9-7.0); Hematocrit 44.9 % (42.0-54.0); Hemoglobin 13.4 g/dL (14.0-18.0); Immature Granulocytes Abs Auto 0.03 10^3/uL (0.00-0.03); Immature Granulocytes Pct Auto 0.3 % (0.0-0.5); Lymphocytes Absolute Auto 1.4 10^3/uL (1.2-3.8); Lymphocytes Percent Auto 12.1 % (20.5-60.0); Mean Corpuscular HGB Conc 29.8 g/dL (29.9-35.2); Mean Corpuscular Hemoglobin 25.4 pg (25.9-34.0); Mean Platelet Volume 9.2 fL (9.5-13.5); Monocytes Absolute Auto 1.1 10^3/uL (0.3-0.8); Monocytes Percent Auto 9.3 % (1.7-12.0); Neutrophils Absolute Auto 8.7 10^3/uL (1.4-6.5); Neutrophils Percent Auto 77.3 % (43.0-75.0); Platelet Count 215 10^3/uL (150-450); Red Blood Count 5.28 10^6/uL (4.70-6.10); Red Cell Distribution Width 15.5 % (11.0-15.0); White Blood Count 11.3 10^3/uL (4.0-11.0)
[2024-07-03 13:47] LABS: Alanine Aminotransferase 27 U/L (16-63); Albumin Globulin Ratio 0.7; Albumin Level 2.9 g/dL (3.4-5.0); Alkaline Phosphatase 117 U/L (46-116); Anion Gap 9.8; Aspartate Amino Transferase 19 U/L (15-37); BUN Creatinine Ratio 16.5; Bilirubin Total 0.5 mg/dL (0.2-1.0); Calcium 9.1 mg/dL (8.5-10.1); Carbon Dioxide 28.9 mmol/L (21.0-32.0); Chloride 97 mmol/L (98-107); Estimated GFR (African America >60 (>=60); Estimated GFR (Non-African Ame 53 (>=60); Globulin 4.1 g/dL; Glucose 137 mg/dL (74-106); Potassium 3.7 mmol/L (3.5-5.1); Sodium 132 mmol/L (136-145)
--- NOTE | 2024-07-03 15:04 | PM.HP ---
HPI H&P: HPI History of Present Illness Chief complaint: BPH WITH OBSTRUCTION, URINARY RETENSION Narrative: HPI and Hospital Course: 73 y o male, morbidly obese, had TURP for BPH/urinary retention and plan was to discharge him today but he was noted to have persistent post op hypoxia with Pulse ox as low as 85% on RA at rest. Hospitalist team was consulted and patient was admitted for observation as he was originally in the place for outpatient/elective surgery. Patient has no known hx of CAD/CHF but is a former smoker. Patient also has not been officially diagnosed with BIRGIT but has been told that he is a shallow breather . 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 He reports chronic GAY and that his PCP planned to work him for it. Upon my evaluation, his hypoxia seemed to be of multifactorial etiology -undiagnosed BIRGIT, post op atelectasis from anesthesia and morbid obesity. I also suspect undiagnosed COPD but to confirm our suspicion, he will require outpatient PFTs. I ordered duonebs, OPEP and one time dose of Lasix for him and his Oxygenation improved subsequently. He is now 99% on RA and denies any resp symptoms or complaints. He is medically stable for discharge. Opioid HPI Opioid Management Most Recent Pain and Opioid Data: Last Pain Assessment 07/03/24 15:03 Last ORT Total Score 10 07/03/24 10:41 Last ORT Risk Category High Risk 07/03/24 10:41 Review of Systems ROS Status of ROS 10 or more systems reviewed and unremarkable except as noted in history and below [facility] Medical History (Updated 07/03/24 @ 15:14 by Shaikh Rosi MD) H/O deep venous thrombosis ?Z86.718 - Personal history of other venous thrombosis and embolism (ICD-10) CAD (coronary artery disease) ?I25.10 - Atherosclerotic heart disease of in[place] coronary artery without angina pectoris (ICD-10) Elevated PSA ?R97.20 - Elevated prostate specific antigen [PSA] (ICD-10) Former smoker ?Z87.891 - Personal history of nicotine dependence (ICD-10) Anticoagulated ?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 (ICD-10) Deep vein thrombosis (2017) ?I82.409 - Acute embolism and thrombosis of unspecified deep veins of unspecified lower extremity (ICD-10) Heartburn ?R12 - Heartburn (ICD-10) Dyspnea on exertion ?R06.09 - Other forms of dyspnea (ICD-10) Urinary retention ?R33.9 - Retention of urine, unspecified (ICD-10) BPH with obstruction/lower urinary tract symptoms ?N40.1 - Benign prostatic hyperplasia with lower urinary tract symptoms (ICD-10) ?N13.8 - Other obstructive and reflux uropathy (ICD-10) Surgical History (Updated 07/03/24 @ 15:14 by Shaikh Rosi MD) History of cardiac cath ?Z98.890 - Other specified postprocedural states (ICD-10) S/P cystoscopy ?Z98.890 - Other specified postprocedural states (ICD-10) History of incision and drainage ?Z98.890 - Other specified postprocedural states (ICD-10) History of tonsillectomy ?Z90.89 - Acquired absence of other organs (ICD-10) Family History (Updated 06/18/24 @ 13:51 by Jadyn Garcia RN) Other Alzheimers disease Leukemia Social History (Updated 06/18/24 @ 13:49 by Jadyn Garcia RN) Within the past year, how often did you have a drink containing alcohol: monthly or less Smoking status: Former smoker Second hand tobacco smoke exposure: No Non-prescribed substance use: denies use Previous occupational history: retired Highest level of school completed/degree received: high school graduate Do you think of yourself as: straight/heterosexual Gender Identity: male Meds Home Medications and Allergies Home Medications ?Medication ?Instructions ?Recorded ?Confirmed ?Type tamsulosin 0.4 mg capsule (Flomax) 0.4 mg PO DAILY #20 caps 07/07/23 07/02/24 Rx warfarin 5 mg tablet 5 mg PO .five days a week 07/07/23 07/02/24 History oxybutynin chloride 10 mg 10 mg PO DAILY PRN urinary 11/21/23 07/02/24 History tablet,extended release 24 hr frequency doxycycline hyclate 100 mg capsule 100 mg PO Q12H 7 days #14 caps 07/02/24 Rx warfarin 2.5 mg tablet (Jantoven) 2.5 mg PO SUWE@1700 07/02/24 07/02/24 History Allergies Allergy/AdvReac Type Severity Reaction Status Date / Time No Known Drug Allergies Allergy Verified 11/21/23 13:51 Exam Constitutional Vital Signs, click to edit/add: Last Vital Signs Temp 98.2 F 07/03/24 14:39 Pulse 86 07/03/24 14:39 Resp 18 07/03/24 14:39 BP 134/72 07/03/24 14:39 Pulse Ox 99 07/03/24 14:39 O2 Del Method Room Air 07/03/24 14:39 O2 Flow Rate 1 07/03/24 14:13 FiO2 50 07/02/24 16:50 Documenting provider has reviewed patient's vital signs: yes Common normals: no apparent distress and oriented x3 General appearance: cooperative Nutritional appearance: obese Respiratory Common normals: no use of accessory muscles and clear to auscultation bilaterally Effort & inspection: able to speak in complete sentences and decreased respiratory effort Auscultation: diminished lung sounds Cardio Common normals: regular rate, S1 normal heart sound and S2 normal heart sound Rate: regular rate Heart sounds: S1 normal and S2 normal GI Common normals: Normal to inspection, nondistended, normoactive bowel sounds present, soft to palpation, non-tender and no hepatosplenomegaly Palpation: soft and no hepatosplenomegaly Extremity Common normals: normal to inspection and full ROM General: edema (trace pedal edema) Neuro Common normals: oriented x3, moves all extremities and no focal motor deficits Psych Common normals: mental status grossly normal, denies hallucinations, denies homicidal ideation and denies suicidal ideation Results Labs Labs: Short CBC 07/03/24 Range/Units 13:20 WBC 11.3 H (4.0-11.0) 10^3/uL Hgb 13.4 L (14.0-18.0) g/dL Hct 44.9 (42.0-54.0) % Plt Count 215 (150-450) 10^3/uL BMP 07/03/24 13:20 Sodium 132 L Potassium 3.7 Chloride 97 L Carbon Dioxide 28.9 BUN 22.0 H Creatinine 1.33 H Glucose 137 H Calcium 9.1 Liver Function 07/03/24 Range/Units 13:20 Total Bilirubin 0.5 (0.2-1.0) mg/dL AST 19 (15-37) U/L ALT 27 (16-63) U/L Alkaline Phosphatase 117 H (46-116) U/L Albumin 2.9 L (3.4-5.0) g/dL Assessment and Plan Assessment and Plan (1) Postoperative atelectasis: Assessment and Plan: Improved with OPEP/Duonebs. Patient is now on RA, comfortable at rest. Stable for discharge. (2) Dyspnea on exertion: Assessment and Plan: Chronic, unchanged. Will benefit from outpatient evaluation for underlying COPD. (3) Suspected chronic obstructive pulmonary disease based on initial evaluation: Assessment and Plan: Former smoker, suspect COPD based on exam. Will need outpatient PFTs. (4) S/P TURP: Assessment and Plan: s/p TURP for BPH. F/u with urology. (5) BPH with obstruction/lower urinary tract symptoms: Assessment and Plan: s/p TURP. F/u with Urology as outpatient. (6) H/O deep venous thrombosis: Assessment and Plan: On coumadin for hx of DVT. Over 5 years ago. Recommend discussing with PCP to stop anticoagulation. (7) Anticoagulated: Assessment and Plan: on coumadin for DVT 5 years ago. Recommend discussing with PCP to stop anticoagulation. (8) Former smoker: Urinary Catheter Management Urinary Catheter Management 3-way Urethral: Cath placed during this visit: yes Urethral indwelling: No Insertion date: 07/02/24
--- NOTE | 2024-07-06 11:44 | CM.DCFOLLOWU ---
Person spoke with: patient How are you feeling? well How is your pain? none Did you understand your discharge instructions? yes Do you have any questions about your discharge instructions? no Were you given any prescriptions at discharge? yes Were you able to get your prescriptions filled? yes Do you understand how to take your medications as ordered? yes Do you have any questions about your follow up appointment and do you plan to keep your follow up appointment? no questions, follow ups reviewed with patient Is there anything else that you would like to discuss? no Questions/Comments/Concerns/Other: none
== END 2024-07-03 15:49 | disposition home or self-care (01) ==
LOC: SURGOUT 11:02 → MS 11:02
PROVIDERS: Urology; Admitting Provider Internal Medicine; PCP Family Medicine; Visit Provider Internal Medicine
PROC: (CPT 52601; principal; 2024-07-02 14:10)
DX: N40.1 Benign prostatic hyperplasia with lower urinary tract symptoms (principal); R33.9 Retention of urine, unspecified; E66.01 Morbid (severe) obesity due to excess calories; J98.11 Atelectasis; R06.09 Other forms of dyspnea; I25.10 Atherosclerotic heart disease of native coronary artery without angina pectoris; Z68.42 Body mass index [BMI] 45.0-49.9, adult; Z87.891 Personal history of nicotine dependence; Z86.718 Personal history of other venous thrombosis and embolism; Z79.01 Long term (current) use of anticoagulants
CPT/HCPCS: 52601; 36415; 71046; 80053; 85025; 85610; 85730; 88305; 94640; 94660; 94667; 94668; 94761; 96374; G0378; J0330; J0690; J1100; J1940; J2250; J2371; J2405; J2704; J2710; J2765; J3010

== ENCOUNTER 2024-07-27 01:24 | Outpatient (RCR) | payer MEDICARE, SELFPAY | END 2024-08-24 23:53 | disposition home or self-care (01) | LOC: MM 01:24 | PROVIDERS: PCP Family Medicine; Visit Provider Internal Medicine | DX: Z51.81 Encounter for therapeutic drug level monitoring (principal); Z79.01 Long term (current) use of anticoagulants; I82.409 Acute embolism and thrombosis of unspecified deep veins of unspecified lower extremity | CPT/HCPCS: 85610; G0463 ==

== ENCOUNTER 2024-08-01 18:27 | Emergency (ER) | payer MEDICARE, SELFPAY ==
[2024-08-01 18:35] VITALS: BP 174/100; PULSE 86; TEMP 36.8; O2SAT 91; BMI 47.1
--- OUTSIDE RECORDS SUMMARY | 2024-08-01 18:41 | XMS_ITS | CCD ---
Author Organization [facility] Care Team Providers Care Experience Design Director Name Role Phone REQUEST, DR NONE LISTED [...] Admitting Unavailable Cortez Degroot Primary Care Physician [phone] Beth Joseph Shahab PATTON R Admitting Unavailable PATTON, Shahab R Referring Unavailable PATTONShahab Attending Unavailable ChristAditya castanon Admitting Unavaila ble ChristAditya castanon Referring Unavaila ble ChristAditya castanon Attending Unavaila ble ChristAditya castanon Admitting Unavaila ble ChristAditya castanon. Referring Unavaila ble Christkina, Aditya Orta Attending Unavaila MD Jacob Garrido Consulting Unavailable Jacob LOVELL Consulting Unavailable Jacob LOVELL Consulting Unavailable Cortez Degroot Attending Unavailable Shahab PATTON Attending Unavailable JENN, Shahab Carrasquillo Attending Unavailable PATTON, Shahab Carrasquillo Attending Unavailable Shahab PATTON Attending Unavailable Cortez Degroot Attending Unavailable Cortez Degroot Admitting Unavailable Cortez Degroot Referring Unavailable ChristAditya castanon Consulting Unavaila ble Aditya Nino Consulting Unavaila ble Aditya Nino Consulting Unavaila Paul Conner Admitting Unavailable Paul Barbosa Attending Unavailable NONE, XXXX Referring Unavailable Paul Barbosa Attending Unavailable Cortez Degroot Referring Unavailable Aditya Nino Attending Unavaila Cortez Montero Referring Unavailable Aditya Nino Attending Unavaila ble Shahab PATTON Attending Unavailable ESPERANZA LIVE Attending Unavailable Cortez Degroot Attending Unavailable Cortez Degroot Attending Unavailable Cortez Degroot Attending Unavailable Cortez Degroot Attending Unavailable Shahab PATTON Attending Unavailable Shahab PATTON Attending Unavailable Rae Luis Attending Unavailable ESPERANZA LIVE Attending Unavailable Shahab PATTON Attending Unavailable Shahab PATTON Attending Unavailable ESPERANZA LIVE Attending Unavailable MD Shahab Patton Attending Provider Shahab Patton Attending Unavailable Shahab Patton Admitting Unavailable MD Cortez Degroot Attending Unavailable Shahab PATTON Attending Unavailable Shahab PATTON Attending Unavailable OrzechRae Attending Unavailable Paul Barbosa Attending Unavailable NONE, XXXX Referring Unavailable ChristAditya castanon Referring Unavaila ble ChristAditya castanon Attending Unavaila ble Aditya Nino Admitting Unavaila MD Cortez Montero Admitting Unavailable PATTON, Shahab R Attending Unavailable MD Cortez Degroot Attending Unavailable MD Cortez Degroot Attending Unavailable Medications Current Medications Medication Drug Class(es) Dates Sig (Normalized) Sig (Original) cephalexin 500 mg oral capsule (2 sources) Cephalosporin Antibacterial Start: 08-12-2023 take 1 capsule by mouth every eight hours Cephalexin 500 MG 1 capsule Orally tid for 7 days Jul, Active Start: 04-27-2016 take 1 capsule by [facility] twice daily Keflex 500 MG 1 capsule Orally Twice a day for 10 day(s) Apr, Not-Taking doxycycline hyclate 100 mg oral tablet (1 source) Tetracycline-class Drug Start: 07-06-2024 End: 07-16-2024 take 100 mg by mouth twice daily doxycycline 100 mg, Oral, BID, X 10 day(s), Refills(s) 0 Start Date: 07/06/24 Stop Date: 07/16/24 Status: Ordered methylPREDNISolone 4 mg oral tablet (2 sources) Corticosteroid Start: 04-27-2016 Medrol 4 MG as directed Orally As Directed for 6 days Jul, Active oxybutynin chloride 5 mg oral tablet (19 sources) Cholinergic Muscarinic Antagonist Start: 07-06-2024 oxybutynin 5 mg Tab See Instructions, PRN for urinary discomfort, 1 tab po q 6 hrs PRN bladder spasms, up to TID, # 30 tab(s), Refills(s) 3, Pharmacy: [facility]/pharmacy #[id number], 173, cm, 05/20/24 10:19:00 EDT, Height/Length Dosing, 154.2, kg, 05/20/24 10:19:00 EDT, Weight Dosing Start Date: 07/06/24 Status: Ordered Start: 04-14-2024 oxybutynin 5 m g Tab See Instructions, PRN for urinary discomfort, 1 tab po q 6 hrs PRN bladder spasms/leaking around hinton, up to TID, # 30 tab(s), Refills(s) 3, Pharmacy: [facility]/pharmacy #[id number], 180, cm, 04/14/24 12:37:00 EDT, Height/Length Dosing, 154.3, kg, 04/14/24 12:37:00 EDT, Weight Dosing Start Date: 04/14/24 Status: Ordered Start: 10-08-2023 oxybutynin 5 m g Tab See Instructions, PRN for urinary discomfort, 1 tab po q 6 hrs PRN bladder spasms/leaking around hinton, up to TID, # 30 tab(s), Refills(s) 3, Pharmacy: [facility]/pharmacy #[id number], 180, cm, 10/08/23 12:12:00 EST, Height/Length Dosing, 123, kg, 10/08/23 12:12:00 EST, Weight Dosing Start Date: 10/08/23 Status: Ordered tamsulosin hydrochloride 0.4 mg oral capsule (20 sources) alpha-Adrenergic Karina Start: 08-05-2023 End: 07-30-2024 tamsulosin 0.4 mg Cap 0.4 mg = 1 cap(s), Refills(s) 0 Start Date: 07/31/24 Status: Ordered triamcinolone acetonide 0.001 mg/mg topical [...] CLINIC, # 90 tab(s), Refills(s) 3, Pharmacy: [facility] STORE [id number], 180, cm, 12/30/23 15:09:00 EST, Height/Length Dosing, [...] procedure, # 2 tab(s), Refills(s) 0, Pharmacy: [facility]/pharmacy #[id number], 180, cm, 08/05/23 12:26:00 EDT, Height/Length [...] Coronary atherosclerosis; 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: [Atherosclerotic heart disease of [place] coronary artery without angina pectoris] Onset: 05-20-2024 [...] Onset: 03-23-2023 Episodic Other aftercare (1 source) supervisor intermediates (current) use of anticoagulants; 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: [ALF CURRNT USE ANTICOAGULANTS] Onset: 04-24-2023 Episodic Other aftercare (5 sources) Long-term current use of anticoagulant; 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: [supervisor intermediates (current) use of anticoagulants] Onset: 08-05-2023 Episodic Other aftercare (1 source) Post-discharge follow-up 07-13-2024 Episodic Other diseases of bladder and urethra (3 sources) Disorder of bladder; 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: [Other specified disorders of bladder] Onset: 10-08-2023 Chronic Other diseases of bladder and urethra (5 sources) Spasm of bladder 05-12-2024 Chronic Other diseases of kidney and ureters (1 source) Urinary tract obstruction; 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: [Other obstructive and reflux uropathy] Onset: 04-14-2024 Episodic Other lower respiratory disease (18 sources) Dyspnea on exertion 11-28-2023 Episodic Other lower respiratory disease (2 sources) Dyspnea; 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: [Shortness of breath] Onset: 04-07-2024 Episodic Other non-traumatic joint disorders (15 sources) Knee pain 12-30-2023 Episodic Other nutritional; [...] [H/O: Deep vein thrombosis] Onset: 02-25-2023 Episodic Respiratory failure; insufficiency; arrest (adult) (1 source) Acute respiratory failure 07-13-2024 Episodic Screening and history of mental health and substance abuse codes (20 sources) H/O: Disorder; 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: [Personal history of nicotine dependence] Onset: 08-05-2023 Episodic Skin and subcutaneous tissue infections (1 source) Cellulitis of right upper limb Episodic Unclassified (20 sources) Drug therapy finding 08-05-2023 Unclassified (17 sources) Patient encounter status 08-05-2023 Results Test Name Value Interpretation Reference Range [facility] 07-28-20 [facility] Case Information Case Priority: None Programs: -- Referral Source: Computer Network Engineer Referral Reason: Care coordination Case Type: Transition Care Management Risk Score: -- Case Status: Enrolled (July 06, 2024) Date Assigned: July 06, 2024 Assigned By: Titus Tamayo Date Enrolled: July 06, 2024 Assigned Primary Personnel: Titus Tamayo Assigned Secondary Personnel: -- Case Physician: Cortez Dgeroot MD Ongoing Abnormal EKG Acute hypoxic respiratory failure Anticoagulated Bladder spasm BPH with urinary obstruction Elevated PSA Former smoker Hospital discharge follow-up Hx of deep venous thrombosis Knee pain SOB (shortness of breath) on exertion Urinary retention Historical No qualifying data Procedure/Surgical History Catheterization of left heart (04/17/2024), Tonsillectomy. Home Medications oxybutynin 5 mg Tab, See Instructions, [...] age 69 Years. Household tobacco concerns: No., 07/13/2024 Family History Alzheimer's disease: Grandparent. Leukemia: Father. Screenings and Assessments 07/06/24 11:49:00 Result Name Value Comment Phone Call Monitoring Consent Agreed to continue call Phone Verification Patient Information Full name, street address and date of verified CM Program Enrollment Provides verbal consent for enrollment Goals and Interventions Care Plan Progress Note TCM#3- spoke with patient for final TCM, states things are going okay. Patient has urology follow up on Saturday. Notes the cath is draining well. Denies any urinary system issues. Patient notes SOB is the same. He still gets SOB with long distance. Denies any chest discomfort. Patient continues to do incentive spirometry several times per day. Patient denies any further questions or concerns. Denies need for medication refills. POV 08/24/24. Communication Events Date: July 28, 2024 Method: Phone call Type: Outbound Duration (min): 3 Outcome: Case discussion Contact Type: Patient Contact Name: EUGENIA GIL Notes: TCM#3- see tcm note. Created By: Titus Tamayo Date: July 20, 2024 Method: Phone call Type: Outbound Duration (min): 16 Outcome: Case discussion Contact Type: Patient Contact Name: EUGENIA GIL Notes: TC#2- See tcm note. Created By: Titus Tamayo Date: July 06, 2024 Method: Phone call Type: Outbound Duration (min): 18 Outcome: Case discussion Contact Type: Patient Contact Name: EUGENIA GIL Notes: TCM#1- see TCM note. Created By: Titus Tamayo [facility] 07-20-20 [facility] Case Information Case Priority: None Programs: -- Referral Source: Computer Network Engineer Referral Reason: Care coordination Case Type: Transition Care Management Risk Score: -- Case Status: Enrolled (July 06, 2024) Date Assigned: July 06, 2024 Assigned By: Titus Tamayo Date Enrolled: July 06, 2024 Assigned Primary Personnel: Titus Tamayo Assigned Secondary Personnel: -- Case Physician: Cortez Degroot MD Ongoing Abnormal EKG Acute hypoxic respiratory failure Anticoagulated Bladder spasm BPH with urinary obstruction Elevated PSA Former smoker Hospital discharge follow-up Hx of deep venous thrombosis Knee pain SOB (shortness of breath) on exertion Urinary retention Historical No qualifying data Procedure/Surgical History Catheterization of left heart (04/17/2024), Tonsillectomy. Home Medications oxybutynin 5 mg Tab, See Instructions, [...] age 69 Years. Household tobacco concerns: No., 07/13/2024 Family History Alzheimer's disease: Grandparent. Leukemia: Father. Screenings and Assessments 07/06/24 11:49:00 Result Name Value Comment Phone Call Monitoring Consent Agreed to continue call Phone Verification Patient Information Full name, street address and date of verified CM Program Enrollment Provides verbal consent for enrollment Goals and Interventions Care Plan Progress Note TCM#2- Patient states he is 'doing.' Patient reports he has a catheter in place. Notes it is draining well. Patient denies any visible blood. Patient does note on occasion he notices some brief burning. Catheter care reviewed with patient. He is to report to Dr. Patton office for any continued or worsening symptoms. Patient has f/u 07/31/24. Patient does admit he has some 'breathing issues' and did not want to elaborate. Patient notes that he is waiting to follow up on the pulmonary issues until after the urology stuff is taken care of. CN reviewed signs and symptoms of hypoxia with patient. Encouraged patient to get a pulse oximeter. Patient notes he has been taking his time in doing things, and he has not been doing a whole lot. Patient denies any need for medication refills. Patient denies any further questions or concerns. Communication Events Date: July 20, 2024 Method: Phone call Type: Outbound Duration (min): 16 Outcome: Case discussion Contact Type: Patient Contact Name: EUGENIA GIL Notes: TC#2- See tcm note. Created By: Titus Tamayo Date: July 06, 2024 Method: Phone call Type: Outbound Duration (min): 18 Outcome: Case discussion Contact Type: Patient Contact Name: EUGENIA GIL Notes: TCM#1- see TCM note. Created By: Titus Tamayo 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 Discharge Vitals Temperature (Oral) 36.6 ?C Heart Rate (Peripheral) 90 Respiratory Rate 18 Blood Pressure 152/90 Height 173.0 cm Height 68 in Weight 153.5 kg Weight 337.7 lb BMI 51.29 What to do next Scheduled Follow-Up Appointments Saturday 10:45 AM EDT With: Shahab PATTON MD Where: [facility] [address] [place], [place] [id number]- Saturday 1:00 PM EDT With: Cortez Degroot MD Where: [address] [id number]- Saturday 2:30 PM EDT With: Where: [address] [id number]- Medications What How Much When Instructions Unchanged oxybutynin (oxybutynin 5 mg Tab) See instructions 1 tab po q 6 hrs PRN bladder spasms, up to TID Contact prescribing physician if questions or concerns Unchanged tamsulosin (tamsulosin 0.4 mg Cap) 1 Capsules By Mouth 2 times a day Duration: 30 Days Contact prescribing physician if questions or concerns Unchanged warfarin (warfarin 5 mg Tab) See instructions TAKE 1 TABLET DAILY OR DIRECTED BY MEDICATION MANAGEMENT CLINIC Contact prescribing physician if questions or concerns Allergies No Known Allergies Problems Ongoing - Any problem that you are currently receiving treatment for. Abnormal EKG Acute hypoxic respiratory failure Anticoagulated Bladder spasm BPH with urinary obstruction Elevated PSA Former smoker Hospital discharge follow-up Hx of deep venous thrombosis Knee pain SOB (shortness of breath) on exertion Urinary retention Patient Survey You may receive a survey via text or e-mail asking about your office visit. Please share your experience with us by completing your survey. We appreciate your feedback and thank you for choosing us for your care. Normal Hernandes [facility] Medicine Office/Clini c Noteon 07-13-2024 Family Medicine Office/Clinic Note Family Medicine Office/Clinic Note [facility] Staff Eugenia is a 73 year old male presenting for [facility] hospital follow up (per Titus) TCM: Hospital: [facility] Admission date: 07/02/24 Discharge date: 07/03/24 the patient presented with: came in post op had a had cystoscopy, hypoxia Dxed post op atelectasis, GAY Current concerns: None, TURP did not work like he wanted it to.. Had this done July 02 irrigated bladder. Had Cath taken out Saturday but he could not urinate and went back to have the Cath replaced by the end of the day. History of Present Illness Patient is here for follow-up. Patient had a TURP procedure and had issues with pulse ox. Patient was admitted overnight. Patient was started on treatment and was discharged the next day. Patient was told to have PFTs done. Patient is concerned as after his TURP procedure he had to have another Hinton placed as he was unable to pee. Patient follows up with urology on July 31. Review of Systems PHQ Score Initial Depression Screen Score: 0 SCORE Physical Exam Vitals & Measurements T: 36.6 ?C(Oral) HR: 90(Peripheral) RR: 18 BP: 152/90 SpO2: 95% HT: 68 in HT: 173.0 cm WT: 153.5 kg WT: 337.7 lb BMI: 51.29 General: alert, no acute distress ENMT: oral mucosa moist, Cardiovascular: regular rate and rhythm, normal peripheral perfusion Respiratory: Lungs CTA, respirations non labored Extremities: no deformity, no trauma Neurological: oriented x 4, LOC appropriate for age, CN II-XII intact, motor strength equal & normal bilaterally, speech normal Abdomen: Soft, Nontender, Non-distended, + BS Assessment/Plan 1. Hospital discharge follow-up (Z09: Encounter for follow-up examination after completed treatment for conditions other than malignant neoplasm) Reviewed discharge summary and TCM. All needs have been met. 2. Acute hypoxic respiratory failure (J96.01: Acute respiratory failure with hypoxia) Will order PFTs to the [facility]. Will look for COPD. This is resolved at this time. 3. Hx of deep venous thrombosis (Z86.718: Personal history of other venous thrombosis and embolism) At this time we will continue the patient on warfarin and will discharge after he sees urology. 4. BPH with urinary obstruction (N40.1: Benign prostatic hyperplasia with lower urinary tract symptoms) Continue with Hinton. Patient needs to follow-up with urology. Other obstructive and reflux uropathy (N13.8: Other obstructive and reflux uropathy) Follow-up No qualifying data available Problem List/Past Medical History Ongoing Abnormal EKG Acute hypoxic respiratory failure Anticoagulated Bladder spasm BPH with urinary obstruction Elevated PSA Former smoker Hospital discharge follow-up Hx of deep venous thrombosis Knee pain [...] age 69 Years. Household tobacco concerns: No., 07/13/2024 Family History Alzheimer's disease: Grandparent. Leukemia: Father. Immunizations Vaccine Date Status SARS-CoV-2 (COVID-19) [id number] 12/13/2022 Recorded SARS-CoV-2 (COVID-19) mRNA BNT-162b2 vax 10/30/2021 Recorded SARS-CoV-2 (COVID-19) mRNA BNT-162b2 vax 02/14/2021 Recorded SARS-CoV-2 (COVID-19) mRNA BNT-162b2 vax 01/23/2021 Recorded Normal [facility] Comment on above: Result Comment: Elec tronically Signed By: Cortez Degroot MD\.br\Date and Time Signed: 07/13/24 13:49 EDT Ambulatory Visit Summaryon 0 07-06-2024 Ambulatory Visit Summary Ambulatory Visit Summary EUGENIA GIL :1950 Visit Date:07/06/2024 Ambulatory Visit Instructions Your Care Team Attending Physician - Shahab PATTON MD Primary Care Physician - Cortez Degroot MD This Is Your Medications List oxybutynin (oxybutynin 5 mg Tab) tamsulosin (tamsulosin 0.4 mg Cap) warfarin (warfarin 5 mg Tab) Procedures Performed Catheterization of left heart (04/17/2024), Tonsillectomy. What to do next Scheduled Follow-Up Appointments Saturday 1:15 PM EDT With: Cortez Degroot MD Where: [address] [id number] Saturday 10:45 AM EDT With: Shahab PATTON MD Where: [facility] [address] [address]- Saturday 2:30 PM EDT With: Where: [address] [id number]- Medications What How Much When Instructions Unchanged oxybutynin (oxybutynin 5 mg Tab) See instructions 1 tab po q 6 hrs PRN bladder spasms/ leaking around hinton, up to TID Unchanged tamsulosin (tamsulosin 0.4 mg Cap) 1 Capsules By Mouth 2 times a day Duration: 30 Days Unchanged warfarin (warfarin 5 mg Tab) See instructions TAKE 1 TABLET DAILY OR DIRECTED BY MEDICATION MANAGEMENT CLINIC Allergies No Known Allergies Problems Ongoing - Any problem that you are currently receiving treatment for. Abnormal EKG Anticoagulated Bladder spasm BPH with urinary obstruction Elevated PSA Former smoker Hx of deep venous thrombosis Knee pain SOB (shortness of breath) on exertion Urinary retention Patient Survey You may receive a survey via text or e-mail asking about your office visit. Please share your experience with us by completing your survey. We appreciate your feedback and thank you for choosing us for your care. Matthew Hernandes [facility] 07-06-20 [facility] Case Information Case Priority: None Programs: -- Referral Source: Computer Network Engineer Referral Reason: Care coordination Case Type: Transition Care Management Risk Score: -- Case Status: Enrolled (July 06, 2024) Date Assigned: July 06, 2024 Assigned By: Titus Tamayo Date Enrolled: July 06, 2024 Assigned Primary Personnel: Titus Tamayo Assigned Secondary Personnel: -- Case Physician: Cortez Degroot MD Ongoing Abnormal EKG Anticoagulated Bladder spasm BPH with urinary obstruction Elevated PSA Former smoker Hx of deep venous thrombosis Knee pain SOB (shortness of breath) on exertion Urinary retention Historical No qualifying data Procedure/Surgical History Catheterization of left heart (04/17/2024), Tonsillectomy. Home Medications doxycycline, 100 mg, Oral, BID oxybutynin 5 mg Tab, See Instructions, PRN, [...] age 69 Years. Household tobacco concerns: No., 05/20/2024 Family History Alzheimer's disease: Grandparent. Leukemia: Father. Screenings and Assessments 07/06/24 11:49:00 Result Name Value Comment Phone Call Monitoring Consent Agreed to continue call Phone Verification Patient Information Full name, street address and date of verified CM Program Enrollment Provides verbal consent for enrollment Goals and Interventions Care Plan Progress Note Admit Date: 07/02/24 [facility] Date of Discharge: 07/03/24 Follow-up appointment scheduled? yes, Dr. Degroot TC f/u 07/13/24 at 1315 Did you understand your discharge instructions? yes Are you able to follow them? yes Did you receive new medications? yes, doxycycline 100 mg BID x 10 days Have you filled the Rx's? yes Are you taking them as prescribed? yes Are you having difficulty eating or swallowing your pills? no Are you having any stomach upset, diarrhea or constipation? no How are you sleeping? good Are you having any pain? left knee pain, on and off from work related injury in 2009 Do you have everything you need at home to care for yourself? yes Do you have Home Health? no Called patient for initial Transitional Care Management Program call. Readmission risk unavailable. No d/c summary available. Reviewed dx of post-op atelectasis, GAY, suspected COPD, s/p TURP, h/o DVT, anticoagulated. Patient underwent Cystoscopy, TURP 07/02, was admitted for observation due to hypoxia. Reviewed purpose and side effects of new medication. Medications reviewed and updated (med rec will need to be completed at d/t PCP out of office). Patient states he is 'feeling good.' Notes feeling some chest congestion. Denies any difficulty breathing. Patient does not have a pulse ox, suggested he purchase one to have at home. Patient had urinary cath removed this am at . Patient notes prior to that he had not noticed any visible blood. Patient has not urinated since cath removal. Patient did resume Coumadin has recheck INR 07/14/24 scheduled. Suggested patient reach out to med management at [facility] and see if sooner INR needed or warfarin dose adjustment d/t AT, he verbalized understanding. Patient is eating and drinking well. Patient notes he has been trying to cut down on food portions. Good hydration encouraged. CN discussed pain management at home for his left knee. Patient states he will discuss with PCP once his 'urology stuff' is done. Reviewed the following appointments with patient; TCM f/u with PCP 07/13/24 at 1315 (medication reconciliation will need to be completed at [facility]), uro., Dr. Patton 07/31 at 1045. CN explained TCM program and gave CN contact number. Patient denies any further questions or concerns. Communication Events Date: July 06, 2024 Method: Phone call Type: Outbound Duration (min): 18 Outcome: Case discussion Contact Type: Patient Contact Name: EUGENIA GIL Notes: TCM#1- see TCM note. Created By: Titus Tamayo [facility] Pathology Request for Lab Co rpon 07-02-2024 Pathology Request for Lab [place] Normal [facility] Comment on above: Order Comment: PATHO LOGY PROSTATE SPECIMEN Result Comment: See report. Scanned copy available in EMR. PERFORMED BY: [place] [address] PATHOLOGIST MACHINE BRUSH MAKER SHARI MARTINEZ M.D. Performed By: #### P ATH TO [facility] #### [address] Ambulatory Visit Summaryon 0 06-09-2024 Ambulatory Visit [...] AM EDT With: Where: [facility] [facility] Invalid Interpretation Code [address] [id number]- \.br\ Saturday 10:45 AM EDT \.br\ With: JENN GUERINShahab\.br\ Where: [facility] Barb [facility] Consent for Treatmenton 04-26 Consent for Treatment [id number] .00TIFF Normal [facility] Formson 05-20-2024 Forms [id number]# 1.00TIFF Normal [facility] Heart and Vascular Office/Cl inic Noteon 05-20-2024 [...] chest pain, shortness of breath, heart palpitations, dizziness/lightheaded ness, Review of Systems PHQ Score Initial Depression [...] no rash or concerning lesions Cardiac Diagnostics [facility] with Dr. Nino on 04/17/2024: LMT: Short [...] alternate imaging modality. Assessment/Plan 1. CAD in [place] artery (I25.10: Atherosclerotic heart disease of [place] coronary artery without angina pectoris) Patient did [...] procedure and clif (more content not included)... Normal [facility] Comment on above: Result Comment: Elec tronically Signed By: Paul Barbosa PA-C\.br\Date and Time Signed: 05/20/24 10:42 EDT Physician Orderon 05-20-2024 Physician Order [id number]# 1.00TIFF Normal [facility] Coding Queryon 05-15-2024 Coding Query - From: Jessica Oliver To: Aditya Nino MD; Cc: Joanne Lester; Sent: 04/30/2024 09:22:46 EDT [...] not. Thank you, Gaby ZAPATA Coding From: Aditya Nino MD To: Jessica Oliver; Sent: 05/15/2024 10:01:49 EDT Subject: RE: Coding Query Caller Name: KANDICEEUGENIA Mindy; Caller Number: Chris , Belkys It was not done, I put an addendum Normal [facility] Coding Summary.on 05-15-2024 Coding Summary. OLJZKlzn08FHe1aJq+PG h lYWQ+ZY9FBMLmL89slLPb oK3hN1ARRPoGSclzFTTUG XrTAoBqaaNrVW0poNYoOB Ju IC8+LV7oEEYmCwrhpOSvh 4C7hWB2Z42xqd1eIZidwG F7JSEjBvUjthaua5qdiGw 6IDcuNmluOyBt JKNqcS33XLJ4nL89Av05d SVzkQRhc9qvlCp9OaOsZR IvPDA9tNmiLVugb9FmZTH bY89ayPPfs6F5 NKEpaBzduCUwQcKjiOB3x G4sUXwzrrzwe9vhscumNg u9tm02kDCqv0K2fLX7C1W dvcZ0HIDkwCZy XlamtRHNcS4zsupwl6zqm rlpUxJsHSKoEUw3OWn3AS NfcHkdPkIlPY61XLB7EDX lvwLaN4TaFXWe iDaoYiF3f0Y2Gu0IY2BOZ rwpI5WXRAUTYBhqbAT+PC 37qg21U2BpNxhzBzd5VHE wXWV9uWH0cT5y WNIuSDysj8J0mDK9Y8Gkd dDwof8oq5dtGKAwMEeaN0 9nvTXpz3J8BHLrpZD9JMB juXuhMzVduF24 Oyc+ZTXxoGjta9TkQblum 7dam1jofBn7YoovXCTzyf TvwBueXDE2d2LgXe1pHTF dtKO6pQX4yK9g XqCqFrI9KAhnV420XkPfu TYmTvcaI70wE6SgcUD+PH GrTvq7ALBhgDwqPI3eN0X hZGRpbmctbGVm hYhtRG0eOSEgddmhHTYhl P3rTQHbY6s9UtNfJaJ8TL ujE6XxXQJwrqckHd99qC8 qWyXxJpW3XOxo W6VurhF4MQWbrINsDWcvG KW8I59nn6M1CGNpSHIaVQ W3sNZ6cC6uuKljdkucwKF mdDsgdmVydGlj OOemVSjzN775YWLnpClnI kNvZGluZyBEYXRlOiAgMD YvMjEvMjAyNDwvdGQ+PHR uQIX1zUwtBHMe vQGbXImhVb5zzZewkKurD P1aAUKtccpbFHCdiD4mNH MilCXdaBpxMW2lEDUmitg gy936MrIcDCI4 QZLzsNDxJ3HfjX1rNrKoK CVmWQLjF1HwbEGwTYlxL1 62BAhvDcV5WNUjmuJhS9S sLWFsaWduOiB0 m8R8Op1Bq6CqscnfC1Uzc QJnYiMyElksHCp8I6LlNy wvdHI+VT18VDQgHW26DHv 6QKA2bVgcZGgd RXMqO6AkxO8mKxSpHKVgE GRkOyc+PHRhYmxlIHdpZH RoPScxMDAlJyBzdHlsZT0 uQq6yDNDnHGZk hLvmyMSmVkPth4wyAZXfP EmhBH6waYokM1GzoCI0XT Vbj3f8Eu86I95oG1BgaKP +BQDcvWV5gMU2 bM3tDiByNqA0LEqsR546Z sQuzEWeOhiso0rrt5amwZ r7IiF1JEWxsnJezMasGKD 9p2ReHs19Q84z IHdpZHRoPSIxNSUiIHZhb Yhfwe5hvG8fEd6+PGNvbC H3qDX4xX2wBsEzMbB6DOz eR771NeNyoTXn Rppjm0bli0bwaHa8JzZhS QDnipAzcBnbRKW4n1PeCx 02F4EhkEkfo4SpEha6ei6 0tKFyd2Z8cIX9 J8KfPVCqycuinOVpeDkhR Y6fTSLmiwypTNPjdN7vKI BmB1c6GkRjVuY5QEvaK1A ybgT8GZXthQXj IEShoKBBzZ9giuxey4xtg dmjOuTtCCClHXv8IZi6BL ZhdBqpErCrHQS0DsY5XDI 2xYUaaF1ktNuu nzwuiO5mTkh+ILM2hYFbm LGLGD6jUmqqkVP+PHRkIH L0aVxiILxgRUPjyI9cUPH rC7o3QtPvIiA4 CVitC7HomeH8SLVsqJKnN SHhoZQEwU7wrkqqu3onkx enFgAaMTSxMAl5YJa7DGY saWduOiBsZWZ0 JbJ3ACV2aVBicU8auMqow phkrP9uLni+QmlydGggRG E8KEg3Z9VxSlr4IFPoaYh vKT3enEDoPIoq Uf0auFsmaButLW6wVYBtv jubv082JhXxs8ihJPYxzD NiZDhkYXS0T55eh1M1WOV jJMMiYCE2rRW2 jU2gtDxdpyloiNGuzMvhi dHkkDmbEDrbXRbiK076SQ CzxJctFaPsDAe3I6ZxIta 1DUGbfXasMH2i iSRjGApxDc0jzRipeBbuW E4hMTEtixfbm360EtAwg6 maOSIipRGuWMgbEGY2V62 im0P3HYUqUTYg UVC3zZG5uJ9noYgrtdgxh GVmdDsgdmVydGljYWwtYW jvK728LDZygXvpJlCnbPu 8O0GsBzf6COWq nUldAJ5pnWKtXIkaLq1rl TppxOsuNV2fMMXnmkvoe7 35ZnGhv2mfDEHzvPPsHWk mXEA2Q41lo4D4 CVZvOMMqNNS6zEF1iB2ls GlnbjogbGVmdDsgdmVydG qlELmwFQvgM661PXWihPk nPlBhdGllbnQg VIohFXn3V4RoHemylEI+P H31FWQxUB02eDWezEHcq6 qtyIb1OmMwYCJaXYT8yPf sGSosy8RgNEIv L28ryNWak9V4OJAkaTaft LHmGsUrsXN0iM6vKAuoga llq8kqlklySbyjs4ehwb7 1yR17X34gQAbu ZHRoPSIzMCUiIHZhbGlnb u0euF2hZk1+QQChkSE6lI R4dR5jEVXjTkK6AOnaS84 9InRvcCIvPjxj s8yns9kqrDk6VqZ0BLXxg fJkfNnnXJF7t1YhOa28I8 9sIHdpZHRoPSIyMCUiIHZ ikUcduh2qyN4d Ii8+FCMbaSO1fHL2hA2fP qVtTrY5MBhcB262DcXfnK AvTfkdI90xB4YfqCR+PHR cXja7TYFstCdj JM3ndXUnKDojJn9nFDV5C rJfSzTdGUcoS7DfOPUlvv nrhryfdPJ3PYBoAFRjdE9 8Sx1ajWkiRSEf rOPMfV6kthlfu1zlmffrP vMfTJAdXMn5CYi0QTVhmM rlXnAqIBB2PuQ0CRC7bDO zpW0axAdtaadi iR8sY3CiUTKmhafdXp21m R0uDaIrYxB0LCkcLdy+Sk 9ITlNPTiwgSkFNRVMgRDw vdGQ+PHRkIHN0 wSfvIOkqQUKkfY2qEJDiO 1c9XcKfQcB6OFheF0NsLR OrbtzoMe35jF4kYdYjUnW 3ZRqmU6QnvnL4 PWRzhQRlGEqkQHN9X29oe 9B4FOQiBBBeASF4tNA7vN 1hbGlnbjogbGVmdDsgdmV ydGljYWwtYWxp K208AXQenZslAqDnIzV2Y eJ0VBL3J3JfYmd6ZYCbjS obBQ8gdTBuFSdvDa3leMj koVknAA9zQOSt xhsvIPItaI3nZWDaiQLbc ApkIX5sJKNygruny496Ih OoLXK3TGOdtUTpD8VddL0 yOiAjMDAwMDAw T3PefUWwKHveO332DCsiT kJ6SHLhfwJpQ1JdEQFtmA tnKwB2z2R3Kr87GKCBVLS yczwvdGQ+PHRk UWS7oVyfPPreLCYvcT2eC PHrP6z9JiGjShZ8ZBiqQ5 CzPBFnptheEb87yR2cJwS rZhT8ZIfhX2Ta rbH4QXEbpRVhNPitJPP4E 46qw3W6FMErEKYiMDS2zK V1iW2rxPnrqgrdgRDddZo gdmVydGljYWwt ETktQ025KGHylXdcWg0pk AR8N0CvUnw0CMCrfFghHV 4gbUCcRWscHw0izRyykYg tND1dZXOjldrx MXQvuU2rFQXirMNtjKjoN E1vUBKgqjcbt913TeYmZV V0VEKroTRwK7PnmT1qUbI pQLLpLNPaK1Lm fQDfBGqdU231SYhaOtJ1F GSihwVaH2AcOEGlcWtpVw C1k5D6Ov9MfND3sUM4q6V 1F4KqvHXoLZX4 ZNQ1akkbcil6R8EfZvyxd HI+OP93DBGyJQ18qANayE Xbl1shiGb6SqOzINYwWEX 5nOryMNtmm6Pv TYWsE05rrEGsr6Q9IYFub InyaHBpQxZlkOA6pQ6vMH piseycx8jntpqjRvxjm9e zvo27gC80P53p IHdpZHRoPSIzMCUiIHZhb Knhkg6hnE6wFr9+PGNvbC K4jVB7kO1yGkMeUiD2STk yX466SrKouXRq Iomkd9cjc5xhfHi2FyEbL TEhteJgaZayIRK1q1NvXn 53I10wZKkxETMpPOXfJZA kWYRjjYvhri9n nA2yPs3+DI3hy1rzpk86n D48dHI+XCCeJLD0rHvgSP iuVSMdvV5vEDxtJvY9XHG sNqJivZ71mEWo AYqmTc8kgCwnmElqSM5nB OLvqmulp897ThYbr2ldSO JjrYVhBOfnYHU8D40az7J 7BMCcPCZvBWK1 gGG9lV8qrTlxgxlzfLHkp DsgdmVydGljYWwtYWxpZ2 36QTOtwRjfPrTrkDEsF0p hkmAEKJ9tCpol dGQ+WUZtIZZ8xXsnTXdzD UIliY6oEBIuD2z2WhEfFn U3RVvrU1WosqS4QUBqjSA sNMMezNMVyF1x xmuoe5lfdtpvIlCzZATwN Sr4GMg8JFAxtUlpAzFkBD S2XiX7YEU4aLXdvG0ziEk xoggusQ9pAxi+ RklOOjwvdGQ+IXGlNTR4h QqmCDepKAJhxS2sZSGwX3 o0SsIuVkM2AXsmI2KcntJ 6IGJvbGQgMTBw gXQPhU0oucvqd1pizytsE rUgZQSoOMa0TEu1NOWvjS dbKmFvHUW1BzA6UYN5fGS nqY4wrVwlewgw iQ4bDpa+TVJOOjwvdGQ+P LNjKSI2xCeeCQmtXAVqiC 2cDWEdH1w1JxIlRpN9SKa wI7ZppfG4NOCn vVGnKMKevGHRvI4ywvhne 6dhacxuYuGyGBFkTRz1LA m4MLRpmFdoPlFgTKX7StI 5AVF9qDYimW9i aTgbasslcL4dSqb+UGF5Z VX0WL67KY89U0JwTeoxuN FibGU+PHRhYmxlIHdpZHR oPScxMDAlJyBz hUwmAZ2pRe0vK (more content not included)... Normal [facility] Operative Reporton 4 Operative Report Indication for Surgery Preoperative assessment and patient who had not [...] consent the patient was brought to the [facility] where sterile prep and drape were administered in usual fashion. Anesthesia was obtained in the right wrist with lidocaine after administration of conscious sedation. A 5/6 slender Terumo sheath was placed in the right radial artery without complication. Nitroglycerin and nicardipine were given via the sheath and heparin was given intravenously. A 5 Qatari JACKE catheter was advanced and selectively engaged [...] inaccurate, left ventriculography was not done. Normal [facility] Comment on above: Result Comment: Elec [...] APRN, [place] X Where: [facility] Invalid Interpretation Code [address] [place] [address]- \.br\ Saturday 2:30 PM EDT \.br\ With:\.br\ Where: [facility] Family Medicine [facility] Family Medicine Office/Clini c Noteon 05-12-2024 Family [...] Airborne, Droplet Precautions for MERS/COVID-19 : N/A Michelle Metz LPNinocencio Reddy 05/11/2024 12:50 EDT Medicare/Medicaid Summary Height/Length Measured [...] : 20 br/min SpO2 : 91 % Metz LAYOUT FORMERMichelle Awaninocencio Reddy 05/11/2024 13:00 EDT Chief Complaint : Medicare Wellness Visit Patient Counseled : Nutrition, Physical activity, Elevated BMI Blood Pressure Location : Right arm Blood Pressure Position : Sitting O2 Sat Resting/Exertion Alpha : Resting Pain Present : No actual or suspected pain Metz BARTSidneyAkuahenrietta Reddy 05/11/2024 12:50 EDT Hearing and Vision Screening FT Vision Screen Comments : Wears corrective lenses, goes to [facility] for eye exams. Isaías ARRIAGA Akuahenrietta Reddy 05/11/2024 13:00 EDT FT Whisper Test Comments : No deficits noted. Isaías ARRIAGA Akuahenrietta Reddy 05/11/2024 12:50 EDT Advance Directive FT Patient Wishes to Receive Further Information on Advance Directives : Yes Organ Donation Consent : No Isaías ARRIAGA Akuahenrietta Reddy 05/11/2024 13:00 EDT Advance Directive : No Akua Metz LPN 05/11/2024 12:50 EDT Procedures / Surgeries FT - Procedure History (As Of: 05/11/2024 13:28:45 EDT) Anesthesia Minutes: 0 ; Procedure Name: Tonsillectomy ; Procedure Minutes: 0 ; Last Reviewed Dt/Tm: 05/11/2024 12:52:38 EDT Procedure Dt/Tm: 04/17/2024 ; Provider: Aditya Nino MD; Anesthesia Minutes: 0 ; Procedure Name: Catheterization of left heart ; Procedure Minutes: 0 ; Last Reviewed Dt/Tm: 05/11/2024 12:52:38 EDT Family History Family History (As Of: 05/11/2024 13:28:45 EDT) Grandparent: Relation: Grandparent ; Nomenclature: Alzheimer's disease ; Comments: 12/30/2023 15:07 Connie Allen LPN paternal grandmother ; Value: Positive Father: [...] HRA little interest or pleasure? : Yes Michelle Metz LPNinocencio Solorzano - 05/11/2024 13:00 EDT HRA down, depressed, or hopeless? : No Michelle Metz LPNinocencio Solorzano - 05/11/2024 12:50 EDT Hazards in your house? : Yes Michelle Metz LPNinocencio Solorzano - 05/11/2024 13:00 EDT Fall Risk Past Year : No Michelle Metz LPNinocencio Solorzano - 05/11/2024 12:50 EDT Worried About Falling : Yes Michelle Metz LPNinocencio Solorzano - 05/11/2024 13:00 EDT Use a Cane [...] Track own medications without help? : Yes Michelle Metz LPNinocencio Solorzano - 05/11/2024 12:50 EDT Overall mood for past four weeks : Good and bad parts about equal General health rating : Good Someone avail. to help if needed? : Yes, a little Phys. & emotional health limit social act? : Moderately Metzcrystal ARRIAGASidneyAkua L - 05/11/2024 13:00 EDT [facility] (more content not included)... Normal [facility] Comment on above: Result Comment: Elec tronically Signed By: Cortez Degroot MD\.br\Date and Time Signed: 05/12/24 12:44 EDT\.br\Electronically Co-Signed By: Akua Metz LPN\.br\Date and Time Co-Signed: 05/11/24 14:08 EDT Lab Reportson 05-12-2024 Lab Reports [id number]#[address] [facility] Screenson 05-12-2024 Screens [id number]#1. 00TIFF Normal [facility] Ambulatory Visit Summaryon 0 05-11-2024 Ambulatory Visit [...] PM EDT With: Where: [facility] Invalid Interpretation Code [address] [place] [address]- \.br\ Saturday 2:30 PM EDT \.br\ With:\.br\ Where: [facility] Family Medicine [facility] Ambulatory Visit Summary EUGENIA GIL :1950 Visit [...] PM EDT With: Where: [facility] Invalid Interpretation Code [address] [place] [address]- \.br\ Saturday 2:30 PM EDT \.br\ With:\.br\ Where: [facility] Medicine [facility] Medicine Office/Clini c Noteon 05-11-2024 Family Medicine [...] Father. Immunizations Vaccine Date Status SARS-CoV-2 (COVID-19) mRNAMUL.ORD![id number] 12/13/2022 Recorded SARS-CoV-2 (COVID-19) mRNA BNT-162b2 vax 10/30/2021 Recorded SARS-CoV-2 (COVID-19) mRNA BNT-162b2 vax 02/14/2021 Recorded SARS-CoV-2 (COVID-19) mRNA BNT-162b2 vax 01/23/2021 Recorded Normal [facility] Comment on above: Result Comment: Elec tronically Signed By: Zane GUERIN, Cortez Erwin\.br\Date and Time Signed: 05/11/24 14:07 EDT Patient [...] provider. Document Revised: 09/28/2021 Document Reviewed: 09/28/2021 [employer] Patient Education ? 2022 [employer] Oncology Lung Cancer Screening A lung cancer screening is a test that checks for lung cancer when there are no symptoms or history of that disease. The s (more content not included)... Normal [facility] Cardiovascular Reporton 06-0 Cardiovascular Report [id number]# 2.00TIFF Normal [facility] Consent for Procedure/Surger yon 04-21-2024 Consent for Procedure/Surgery [id number] #1.00TIFF Normal [facility] Discharge Instructionson Discharge Instructions [id number] #1.00TIFF Normal [facility] COAGULATIONOrdered By: Jered Perla on 04-17-2024 aPTT Coag (PPP) [Time] 35.1 s Normal 25.1 - 36.5 second(s) [facility] Auto Coag Comment on above: Interpretive Data: Alexandro khan 15 days - 4 weeks 1 - [...] the same coagulation reagent and instrumentation as [facility]. Currently there are no coagulation studies available worldwide for children to 14 days, and no normal ranges. Heparin therapeutic range (represented by Anti-Factor Xa activity of 0.2 - 0.4 U/mL) corresponds to PTT of 56.6 - 109.0 sec. INR Coag (PPP) [Relative time] 1.04 {INR} Invalid Interpretation Code [facility] Auto Coag Comment on above: Interpretive Data: I NR results are specifically intended to assess patients stabilized on long-term Anticoagulation therapy suggested INR s Less Intensive Anticoagulation 2.0 3.0 Conventional Range 3.0 4.5 PT Coag (PPP) [Time] 11.7 s Normal 9.4 - 1 2.5 second(s) [facility] Auto Coag Comment on above: Interpretive Data: 1 5 days - 4 weeks 1 - 5 months 6 -11 months 1-5 years 6-10 years 11 -17 years Mean: 11.2 (9.5-12.6) Mean: 11.0 (9.7-12.8) Mean: 11.0 (9.8-13.0) Mean: 11.3 (9.9-13.4) Mean: 11.7 (10.0-14.6) Mean: 11.8 (10.0 - 14.1) Pediatric Reference ranges were obtained from a study by bhargavi Wise al. prepared from 1437 samples obtained at 7 different centers using the same coagulation reagent and instrumentation as [facility]. Currently there are no coagulation studies available worldwide for children to 14 days, and no normal ranges. Consent for Treatmenton 03-26 Consent for Treatment [id number]#1 .00TIFF Normal [facility] Inpatient Clinical Summaryon 04-17-2024 Inpatient Clinical Summary [address] [address] Clinical Summary Person Information: Name: EUGENIA GIL Age: 73 Years : 1950 Sex: Male PCP: Cortez Degroot MD Marital Status: Single Race: White Ethnicity: Non- or Language: Ghanaian Visit Id: Visit Reason: R07.9 R06.09 R06.02 Z01.818 Speciality: Acuity: Enc Type: Ambulatory/Same Day Surgery Med Service: Cardiovascular Arrival: 04/17/2024 06:57:58 Discharge: Dispo Type: Address: [address] [place] [id number] Provider Notes: Diagnosis: Problems Active Knee pain [...] Follow up: With: Address: When: Paul Barbosa [address] [place] [id number] [phone] Business (1) 05/20/2024 9:45 AM Type Location Start Finish State FM Medicare Wellness Subsequent [facility] 05/11/2024 1:00 PM 05/11/2024 2:00 PM Confirmed FM Open [facility] 05/11/2024 2:00 PM 05/11/2024 2:15 PM Confirmed URO Nurse Visit [facility] 05/12/2024 1:00 PM 05/12/2024 1:15 PM Confirmed Cardiology Follow Up (FT) [facility] 05/20/2024 9:45 AM 05/20/2024 10:00 AM Confirmed Patient Education Information: Cardiovascular Discharge Instructions - Revised 11/16/15 (CUSTOM) [facility] Inpatient Clinical Summary [address] [address] Clinical Summary Person Information: Name: EUGENIA GIL Age: 73 Years : 1950 Sex: Male PCP: Cortez Degroot MD Marital Status: Single Race: White Ethnicity: Non- or Language: Ghanaian Visit Id: Visit Reason: R07.9 R06.09 R06.02 Z01.818 Speciality: Acuity: Enc Type: Ambulatory/Same Day Surgery Med Service: Cardiovascular Arrival: 04/17/2024 06:57:58 Discharge: Dispo Type: Address: [address] [place] [phone] Provider Notes: Diagnosis: Problems Active Knee pain [...] Start Finish State FM Medicare Wellness Subsequent [facility] 05/11/2024 1:00 PM 05/11/2024 2:00 PM Confirmed FM Open [facility] 05/11/2024 2:00 PM 05/11/2024 2:15 PM Confirmed URO Nurse Visit [facility] [place] 05/12/2024 1:00 PM 05/12/2024 1:15 PM Confirmed Patient Education Information: Cardiovascular Discharge Instructions - Revised 11/16/15 (CUSTOM) Normal [facility] Inpatient Patient Summaryon 04-17-2024 Inpatient Patient Summary [place] [id number] Patient Discharge Instructions PERSON INFORMATION Name: EUGENIA [...] results: None Follow up: With: Address: When: Paul Barbosa [address] [place] [phone] Business (1) 05/20/2024 9:45 AM In the event that this physician does not participate in your insurance network, please consult with your insurance company to find a nearby participating provider. Type Location Start Finish State Medicare Wellness Subsequent [facility] 05/11/2024 1:00 PM 05/11/2024 2:00 PM Confirmed FM Open [facility] 05/11/2024 2:00 PM 05/11/2024 2:15 PM Confirmed URO Nurse Visit [facility] 05/12/2024 1:00 PM 05/12/2024 1:15 PM Confirmed [facility]/20/2024 9:45 AM 05/20/2024 10:00 AM Confirmed Comment: KANDICE Bro JAMES D, have received the attached patient education materials/instruction s and have verbalized understanding: Patient Signature Date Clinican/Nurse Signature Date HERE ARE THE MEDICATION CHANGES THAT OCCURRED DURING YOUR HOSPITAL STAY Medications to Continue with No Changes Other Medications oxybutynin (oxybutynin 5 mg Tab) 1 tab po q 6 hrs PRN bladder spasms/leaking around hinton, up to TID; as needed for urinary discomfort. Refills: 3. Last Dose: ____Next Dose: ____ tamsulosin (tamsulosin 0.4 mg Cap) 1 Capsules By Mouth 2 times a day for 30 Days. Refills: 11. Last Dose: ____Next Dose: ____ warfarin (warfarin 5 mg Tab) TAKE 1 TABLET DAILY OR DIRECTED BY MEDICATION MANAGEMENT CLINIC. Refills: 3. Last Dose: ____Next Dose: ____ Comment: MEDICATION LIST PROVIDED FOR YOU IS [...] IRASEMA Day Comment: PATIENT EDUCATION INFORMATION Instructions: [place], [place] DISCHARGE INSTRUCTIONS Diet: ? Resume pre-procedure [...] smoking f (more content not included)... Normal [facility] Inpatient Patient Summary [place] [address] Patient Discharge Instructions PERSON INFORMATION Name: EUGENIA GIL Date of : 1950 Current Date: 04/17/2024 07:44:45 PHYSICIANS Admitting Physician: Mica GUERIN, Aditya Guillen. Primary Care Physician: Cortez Degroot MD PCP Comment: Discharge Diagnosis: Condition at Discharge: KANDICEEUGENIA Mindy has been given the following list of [...] a nearby participating provider. Type Location Start [facility] Medicare Wellness Subsequent [facility] [place] 05/11/2024 1:00 PM 05/11/2024 2:00 PM [facility]00 PM 05/11/2024 2:15 PM Confirmed URO Nurse Visit [facility] [place] 05/12/2024 1:00 PM 05/12/2024 1:15 PM Confirmed Comment: KANDICE Bro JAMES D, have received the attached patient education materials/instruction s and have verbalized understanding: Patient Signature Date Clinican/Nurse Signature Date HERE ARE THE MEDICATION CHANGES THAT OCCURRED DURING YOUR HOSPITAL STAY Medications to Continue with No Changes Other Medications oxybutynin (oxybutynin 5 mg Tab) 1 tab po q 6 hrs PRN bladder spasms/leaking around h[place], up to TID; as needed for urinary discomfort. Refills: 3. Last Dose: ____Next Dose: ____ tamsulosin (tamsulosin 0.4 mg Cap) 1 Capsules By Mouth 2 times a day for 30 Days. Refills: 11. Last Dose: ____Next Dose: ____ warfarin (warfarin 5 mg Tab) TAKE 1 TABLET DAILY OR DIRECTED BY MEDICATION MANAGEMENT CLINIC. Refills: 3. Last Dose: ____Next Dose: ____ Comment: MEDICATION LIST PROVIDED FOR YOU IS [...] IRASEMA Day Comment: PATIENT EDUCATION INFORMATION Instructions: [place], [place] DISCHARGE INSTRUCTIONS Diet: ? Resume pre-procedure [...] you are interested in smoking cessation, contact [facility] at [phone], ext. [phone]. ? In the event you are unable to reach your physician, please (more content not included)... Normal [facility] PT & PTTon 04-17-2024 aPTT Coag (PPP) [Time] 35.1 second(s) Normal 25.1-36.[address] [facility] Comment on above: Order Comment: if [...] obtained from a study by bhargavi Wise al. prepared from 1437 samples obtained at 7 different centers using the same coagulation reagent and instrumentation as [facility]. Currently there are no coagulation studies available worldwide for children to 14 days, and no normal ranges. Heparin therapeutic range (represented by Anti-Factor Xa activity of 0.2 - 0.4 U/mL) corresponds to PTT of 56.6 - 109.0 sec. Performed By: #### [id number] ####[facility] [id number] [place] [address] INR Coag (PPP) [Relative time] 1.04 {INR} Invalid Interpretation Code [facility] Comment on above: Order Comment: if on Coumadin. Draw day of procedure and notify MD if abnormal Result Comment: INR results are specifically intended to assess patients stabilized on long-term Anticoagulation therapy suggested INR?s ?Less Intensive Anticoagulation? 2.0 ? 3.0 Conventional Range 3.0 ? 4.5 Performed By: #### 1 [id number] ####[facility] [id number] [place] [address] PT Coag (PPP) [Time] 11.7 second(s) Normal 9.4-12.[address] [facility] Comment on above: Order Comment: if [...] the same coagulation reagent and instrumentation as [facility]. Currently there are no coagulation studies available worldwide for children to 14 days, and no normal ranges. Performed By: #### 1 [id number] ####[facility] [id number] [place] [address] Patient Education - [place]on 0 04-17-2024 Patient Education - Text [place], [place] DISCHARGE INSTRUCTIONS Diet: ? Resume pre-procedure [...] you are interested in smoking cessation, contact [facility] at [phone], ext. [phone]. ? In the event you are unable to reach your physician, please call [facility] at [phone] and the rounding and backing machine operator will assist you. Discharging Nurse Physician Date/Time Patient or Responsible [employer] Revised 07-02, 03-03, 12-07, 11-[address] [facility] Patient Education - Text [place], [place] DISCHARGE INSTRUCTIONS Diet: ? Resume pre-procedure [...] you are interested in smoking cessation, contact [facility] at [phone], ext. [phone]. ? In the event you are unable to reach your physician, please call [facility] at [phone] and the rounding and backing machine operator will assist you. Discharging Nurse Physician Date/Time Patient or Responsible [employer] Revised 07-02, 03-03, 12-07, 11-[address] [facility] Patient Educationon 04-14-20 24 Patient Education [...] Follow these instructions at home: ? Take xdyj-nnv-pblxujh and prescription medicines only as told by [...] the medicine (more content not included)... Normal [facility] Urology Office/Clinic Noteon 04-14-2024 Urology Office/Clinic Note Chief Complaint 5 week cath change w/ Rae HPI Staff Patient here today for 5 week cath change w/ Rae History of Present Illness I have reviewed and verified the staff HPI to be accurate for this encounter. Portions of this record may have been created with voice recognition artificial intelligence software, specifically my6sense, Appside and or hike. Substitutions may have occurred due to the [...] Retention of urine, unspecified) Pt presented to [facility] ER 07/07/23 for retention. Pt was [...] Hg (Most Recent) 3074F 4. 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 Patient states that he is scheduled for cardiac cath next week. Other obstructive and reflux uropathy (N13.8: Other obstructive and reflux uropathy) Orders: oxybutynin, See Instructions, PRN for urinary discomfort, 1 tab po q 6 hrs PRN bladder spasms/leaking around [place], up to TID, # 30 tab(s), Refills(s) 3, Pharmacy: [id number], 180, cm, 10/08/23 12:12:00 EST, Height/Length Dosing, 123, kg, 10/08/23 12:12:0... oxybutynin, See Instructions, PRN for urinary discomfort, 1 tab po q 6 hrs PRN bladder spasms/leaking around [place], up to TID, # 30 tab(s), Refills(s) 3, Pharmacy: [facility]/pharmacy #[id number], 180, cm, 04/14/24 12:37:00 EDT, Height/Length Dosing, 154.3, kg, 04/14/24 12:37... Follow-up With When Contact Information ELEAZAR Luis APRN, Rae Schmidt, FAM, URL Additional Instructions: or another BELA [...] times per (more content not included)... Normal [facility] Comment on above: Result Comment: Elec tronically Signed By: ELEAZAR Luis APRN, Rae Schmidt\.br\Date and Time Signed: 04/14/24 13:24 EDT Insurance Correspondenceon 0 04-08-2024 Insurance Correspondence [id number]# 1.00TIFF Normal [facility] Progress Note-Physicianon Progress Note-Physician [id number]# 1.00TIFF Normal [facility] BMPon 04-07-2024 Anion gap [Moles/Vol] 13 mmol/L Normal 6-16 [facility] Comment on above: Performed By: #### 2 812272, [id number], 7043178 ####[facility] [address] [place] [address] Calcium [Mass/Vol] 9.6 mg/dL Normal 8.9-11.[address] [facility] Comment on above: Performed By: #### 2 355257, 35179085, 4054337 ####[facility] [address] [place] [address] Chloride [Moles/Vol] 102 mmol/L Normal 101-111 [facility] Comment on above: Performed By: #### 2 124419, 09032726, 0647195 ####[facility] [address] [place] [address] CO2 [Moles/Vol] 26 mmol/L Normal 21-[address] [facility] Comment on above: Performed By: #### 2 696169, 35441355, 9956145 ####[facility] [address] [place] [address] Creatinine [Mass/Vol] 1.2 mg/dL Normal 0.5-1.3 [facility] Comment on above: Performed By: #### 2 845254, 50851562, 1162205 ####[facility] [address] [facility] [place] [address] Glucose [Mass/Vol] 123 mg/dL Normal 55-[address] [facility] Comment on above: Performed By: #### 2 078760, 48097174, 4520555 ####[facility] [address] [place] [address] Potassium [Moles/Vol] 4.5 mmol/L Normal 3.5-5.3 [facility] Comment on above: Performed By: #### 2 166272, 67305812, 8811967 ####[facility] [address] [place] [address] Sodium [Moles/Vol] 136 mmol/L Normal 135-[address] [facility] Comment on above: Performed By: #### 2 380178, 35540184, 1583312 ####[facility] [address] [place] [address] Urea nitrogen [Mass/Vol] 18 mg/dL Normal 5-[address] [facility] Comment on above: Performed By: #### 2 676009, 32910548, 0497448 ####[facility] [address] [place] [address] Urea nitrogen/Creatinine [Mass ratio] 15 No Units Normal 10-[address] [facility] Comment on above: Performed By: #### 2 162099, 27984032, 0924383 ####[address] [address] CBC w/ Auto Diffon 4 Basophils/100 WBC (Bld) 1.0 % Normal 0.0-2.[address] [facility] Comment on above: Performed By: #### 2 338948, 61596997, 6508490 ####[address] [address] Basophils/Leukocytes Auto (Bld) [Pure # fraction] 0.1 E9/L Normal 0.0-0.[address] [facility] Comment on above: Performed By: #### 2 325081, 70992935, 8515464 ####[address] [address] Eosinophils (Bld) [#/Vol] 0.2 E9/L Normal 0.0-0.[address] [facility] Comment on above: Performed By: #### 2 475288, 88475943, 5486749 ####[address] [address] Eosinophils/100 WBC (Bld) 2.2 % Normal 0.0-8.[address] [facility] Comment on above: Performed By: #### 2 409513, 07422098, 8500305 ####[address] [address] Erythrocyte distribution width (RBC) [Ratio] 17.1 % High 10.9-14.[address] [facility] Comment on above: Performed By: #### 2 295603, 14131796, 3152780 ####[address] [address] Hematocrit (Bld) [Volume fraction] 45.3 % Normal 37.7-49.[address] [facility] Comment on above: Performed By: #### 2 206352, 18482317, 4226554 ####[address] [address] Hemoglobin (Bld) [Mass/Vol] 14.5 g/dL Normal 13.5-17.[address] [facility] Comment on above: Performed By: #### 2 333781, 10020620, 9491938 ####[address] [address] Lymphocytes (Bld) [#/Vol] 1.2 E9/L Normal 1.0-4.[address] [facility] Comment on above: Performed By: #### 2 586495, 02069566, 1206862 ####[address] [address] Lymphocytes/100 WBC (Bld) 16.1 % Normal 14.0-50.[address] [facility] Comment on above: Performed By: #### 2 523765, 11377927, 2849400 ####[address] [address] MCH (RBC) [Entitic mass] 25.7 pg Low 27.0-34.[address] [facility] Comment on above: Performed By: #### 2 147272, 91497397, 2268370 ####[address] [address] MCHC (RBC) [Mass/Vol] 32.0 g/dL Normal 31.4-36.0 [facility] Comment on above: Performed By: #### 2 559730, 94146036, 8608132 ####[address] [address] MCV (RBC) [Entitic vol] 80.4 fL Normal 80.0-100.[address] [facility] Comment on above: Performed By: #### 2 397145, 31038899, 7805284 ####[address] [address] Monocytes (Bld) [#/Vol] 0.8 E9/L Normal 0.2-1.[address] [facility] Comment on above: Performed By: #### 2 235326, 78420797, 0114549 ####[address] [place] [address] Neutrophils (Bld) [#/Vol] 5.2 E9/L Normal 2.0-7.[address] [facility] Comment on above: Performed By: #### 2 126073, 04749557, 4405335 ####[address] [address] Neutrophils/100 WBC (Bld) 70.3 % Normal 36.0-75.[address] [facility] Comment on above: Performed By: #### 2 595095, 28130728, 4979145 ####[address] [address] Platelet mean volume (Bld) [Entitic vol] 7.9 fL Normal 6.4-10.[address] [facility] Comment on above: Performed By: #### 2 912259, 38864615, 6564200 ####[address] [address] Platelets (Bld) [#/Vol] 242.0 E9/L Normal 150.0-500.[address] [facility] Comment on above: Performed By: #### 2 536515, 05135164, 6156588 ####[address] [address] RBC (Bld) [#/Vol] 5.6 E12/L Normal 4.3-5.[address] [facility] Comment on above: Performed By: #### 2 461945, 06408657, 8245738 ####[address] [address] WBC corrected for nucl RBC Auto (Bld) [#/Vol] 7.4 E9/L Normal 4.0-11.[address] [facility] Comment on above: Performed By: #### 2 076782, 85546409, 5481973 ####[address] [address] CHEMISTRYOrdered By: SYSTEM SYSTEM on 04-07-2024 Anion [...] for Treatmenton 03-25 Consent for Treatment [id number]#1 .00TIFF Normal [facility] Consent for Treatment [id number]#1 .00TIFF Normal [facility] HEMATOLOGYOrdered By: SYSTEM SYSTEM on 04-07-2024 Basophils/100 [...] 11.0 E9/L [facility] Heart and Vascular Office/ in Noteon 04-07-2024 Heart and Vascular Office/Clinic Note [...] with voice recognition artificial intelligence software, specifically my6sense, Appside and or hike. Substitutions may have occurred due to the [...] tobacco co (more content not included)... Normal [facility] Comment on above: Result Comment: Elec tronically Signed By: Chelsey ODOM, Paul Perez\diana\Date and Time Signed: 04/07/24 14:52 EDT eGFRon 04-07-2024 eGFR 64 mL/min/1.73 m2 Normal >=[address] [facility] Comment on above: Order Comment: Order added by Discern Expert. Performed By: #### 2 382397, 04989953, 8138714 ####[facility] [address] [place] [address] Physician Referralon 024 Physician Referral [id number]#[address] [facility] Lab Reportson 03-30-2024 Lab Reports [id number]#[address] [facility] Ambulatory Visit Summaryon 0 03-09-2024 Ambulatory [...] PM EDT With: Where: [facility] Family Medicine Office/Clini c Noteon 03-09-2024 Family [...] Hg (Most Recent) 3075F 6. Anticoagulated (Z79.01: halfway (current) use of anticoagulants) - Pt will [...] No q (more content not included)... Normal [facility] Comment on above: Result Comment: Elec tronically Signed By: Cortez Degroot MD\.br\Date and Time Signed: 03/09/24 15:08 EDT Lab Reportson 02-13-2024 Lab Reports [id number]#1 .00TIFF Normal [facility] Ambulatory Visit Summaryon 0 02-11-2024 Ambulatory Visit Summary EUGENIA GIL :1950 Visit Date:02/11/2024 Ambulatory Visit Instructions Your Care Team Attending Physician - Shahab PATTON MD Primary Care Physician - Cortez Degroot MD This Is Your Medications List oxybutynin (oxybutynin 5 mg Tab) tamsulosin (tamsulosin 0.4 mg Cap) warfarin What to do next Scheduled Follow-Up Appointments Saturday 1:15 PM EDT With: Cortez Degroot MD Where: [facility] [place] Normal [address] [place] [address]- \.br\ Saturday 1:15 PM EDT \.br\ With: Mica GUERIN, Aditya Orta\.br\ Where: [facility] [place]\.br\ Medications\.br\ What How Much When Instructions\.br \ [...] for choosing us for your care.\.br\ \.br\ [facility] Stress EKG Tracingson 2023 Stress EKG Tracings [id number]#1. 00TIFF Normal [facility] Consent for Treatmenton 01-23 Consent for Treatment [id number]#1 .00TIFF Normal [facility] Lab Reportson 01-07-2024 Lab Reports [id number]#1 .00TIFF Normal [facility] Ambulatory Visit Summaryon 0 12-30-2023 Ambulatory [...] AM EST With: Where: [facility] Normal [address] [place] [address]- \.br\ Saturday 1:15 PM EDT \.br\ With: Mica GUERIN, Aditya Orta\.br\ Where: [facility] [place]\.br\ Medications\.br\ What How Much When Instructions\.br \ [...] knee.\.br\ General instructions\.br \ ? \.br\ Take nzwp-bxi-fdgcral and prescription medicines only as told by [...] provider.\.br\ Document Revised: 04/26/2021 Document Reviewed: 04/26/2021 Visualnet Patient Education ? 2022 [employer].\.br\ \.br\ [facility] Family Medicine Office/Clini c Noteon 12-30-2023 [...] have the treadmill test now?? And if mobile electronics installer has to clear him why does he [...] Father. Immunizations Vaccine Date Status SARS-CoV-2 (COVID-19) [id number].[id number] 12/13/2022 Recorded SARS-CoV-2 (COVID-19) mRNA BNT-162b2 vax 10/30/2021 Recorded SARS-CoV-2 (COVID-19) mRNA BNT-162b2 vax 02/14/2021 Recorded SARS-CoV-2 (COVID-19) mRNA BNT-162b2 vax 01/23/2021 Recorded Normal [facility] Comment on above: Result Comment: Elec tronically Signed By: Zane GUERIN, Cortez Hamilton.br\Date and Time Signed: 12/30/23 15:19 EST Patient Educationon 12-30-19 24 Patient Education Orthopedics Acute Knee Pain, Adult [...] under your knee. General instructions ? Take purj-zcj-nwwxfri and prescription medicines only as told by [...] provider. Document Revised: 04/26/2021 Document Reviewed: 04/26/2021 Elsevier Patient Education ? 2022 [employer] Inc. Normal [facility] Pre-Certification Formon Pre-Certification Form [id number]#1 .00TIFF Normal [facility] Insurance Correspondenceon 0 12-25-2023 Insurance Correspondence [id number]# 1.00TIFF Normal [facility] NM Myocardial Spect Part 2on 12-24-2023 [...] 12/24/2023 9:15 am Signed by: Mica GUERIN, dAitya Orta Transcribed by: ari Technologist: SONY Technical Comments NM Myocardial Spect Rest/Stress 2 Day: Rest Dose (mCi Tc99m Cardiolite): 29.9 NM Myocardial Spect Part 2: Please See Report for NM Myocardial Spect Rest/Stress 2 Day Stress Dose (mCi Tc99M Cardiolite): 29.[address] [facility] Stress EKG Tracingson 2023 Stress EKG Tracings [id number]# 1.00TIFF Normal [facility] Consent for Treatmenton 11-26 Consent for Treatment [id number]#1 .00TIFF Normal [facility] Heart and Vascular Office/Cl inic Noteon [...] cardiac issues and has not seen a mobile electronics installer in the past. He occasionally experiences a [...] with voice recognition artificial intelligence software, specifically my6sense, Appside and or hike. Substitutions may have occurred due to the inherent limitations of voice recognition and artificial intelligence software. Documentation services were performed after patient or guardian consented to allow [employer] to record this visit. YENI diabetes solutions specialist and provider reviewed before signing. YENI: [...] No Known A (more content not included)... [facility] Comment on above: Result Comment: Elec tronically Signed By: Mica GUERIN, Aditya Orta\.br\Date and Time Signed: 12/19/23 18:28 EST\.br\Electronically Co-Signed By: Mare Cherry\.br\Date and Time Co-Signed: 12/13/23 12:06 EST Physician Orderon 12-13-2023 Physician Order [id number]# 1.00TIFF [facility] Ambulatory Visit Summaryon 0 12-09-2023 Ambulatory Visit Summary EUGENIA GIL :1950 Visit Date:12/09/2023 Ambulatory Visit Instructions Your Care Team Attending Physician - JENN GUERIN, Shahab Carrasquillo Primary Care Physician - Zane GUERIN, Cortez Erwin This Is Your Medications List oxybutynin (oxybutynin 5 mg Tab) tamsulosin (tamsulosin 0.4 mg Cap) warfarin What to do next Scheduled Follow-Up Appointments Saturday 10:15 AM EST With: Aditya Nino MD Where: [facility] [place] 2023 8:00 AM EST With: Where: [facility] 2023 9:00 AM EST With: Where: [facility] 2023 10:00 AM EST With: Where: [facility] Saturday 2:30 PM EST With: Where: [facility] Saturday 3:30 PM EST With: Where: [facility] Saturday 3:00 PM EST With: Zane GUERIN, Cortez Erwin Where: [facility] Normal [address] [place] [address]- \.br\ Medications\.br\ What How Much When Instructions\.br [...] for choosing us for your care.\.br\ \.br\ [facility] Insurance Correspondenceon 0 12-03-2023 Insurance Correspondence [id number]#1 .00TIFF Normal [facility] Office/Clini c Noteon 12-02-2023 Family Medicine Office/Clinic Note HPI Staff Eugenia is a 73 year old male presenting for surgical clearance Surgery scheduled for 12/05/23 w/ Dr Patton for a TURP at [facility] PAT testing is 11/21/23 flu: due History of Present Illness Eugenia Gil is a 73-year-old male who presents today for pre-surgical clearance. The patient's last medical consultation was with Dr. Balwinder Brar in 2016, and he has not sought medical attention [...] oxybutynin. He was initiated on warfarin in 2016 for a deep vein thrombosis in his leg. The etiology of the thrombus in his leg is uncertain, but he hypothesizes it might be due to sedentary behavior. He has a degenerative knee condition which inhibits him from engaging in physical activity without discomfort. 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 He is taking chondroitin/glucosami ne for his knee issues. He noticed improvements [...] 1 month and we will refer to mobile electronics installer for further management and clearance for surgery. Portions of this record may have been created with voice recognition artificial intelligence software, specifically my6sense, Dragon Express and or Dragon Ambient Experience. Substitutions may have occurred due to the inherent limitations of voice recognition and artificial intelligence software. ATTESTATION: Documentation services were performed after patient or guardian consented to allow Dragon Ambient eXperience to record this visit. YENI diabetes solutions specialist and provider reviewed before signing. YENI: Dario Cool. Follow-up N (more content not included)... Normal [facility] Comment on above: Result Comment: Elec tronically Signed By: Cortez Degroot MD\.br\Date and Time Signed: 12/02/23 12:47 EST\.br\Electronically Co-Signed By: Dario Cool\.br\Date and Time Co-Signed: 11/28/23 15:01 EST Ambulatory Visit Summaryon 0 11-28-2023 Ambulatory Visit Summary EUGENIA GIL Mindy :1950 Visit Date:11/28/2023 Ambulatory Visit Instructions Your Diagnosis Encounter to establish care Abnormal EKG SOB (shortness of breath) on exertion Hx of deep venous thrombosis BPH with urinary obstruction Adult BMI 45.0-49.9 kg/sq m Non-smoker Other obstructive and reflux uropathy Your Care Team Attending Physician - Cortez Degroot MD Primary Care Physician - Cortez Degroot MD. This Is Your Medications List oxybutynin (oxybutynin 5 mg Tab) tamsulosin (tamsulosin 0.4 mg Cap) warfarin Discharge Vitals Heart Rate (Peripheral) 83 Blood Pressure 128/82 Height 180 cm Height 71 in Weight 153.6 kg Weight 337.92 lb BMI 47.41 What to do next Scheduled Follow-Up Appointments Saturday 10:00 AM EST With: Where: [facility] Invalid Interpretation Code [address] [place] [address] [place] [address]- \.br\ Saturday 3:00 PM EST \.br\ With: Cortez Degroot MD\.br\ Where: [facility] Lab Reportson 11-28-2023 Lab Reports [id number]#1 .00TIFF [facility] Patient Educationon 11-28-19 24 Patient Education Nutrition BMI for Adults What [...] numbers. This can be done either in [place]ian (U.[place] or metric measurements. Note that charts and online BMI calculators are available to help you find your BMI quickly and easily without having to do these calculations yourself. To calculate your BMI in [place]ian ([place] measurements: 1. Measure your weight in [...] for Disease Control and Prevention: www.cdc.gov ? [place] Of [place] Heart Association: www.heart.org ? National Heart, Lung, and Blood [place]: www.nhlbi.nih.gov Summary ? Body mass index (BMI) is a number that is calculated from a person's weight and height. ? BMI may help estimate how much of a person's weight is composed of fat. BMI can help identify those who may be at higher risk for certain medical problems. ? BMI can be measured using Ghanaian measurements or metric measurements. ? BMI charts are used to identify whether you are underweight, normal weight, overweight, or obese. This information is not intended to replace advice given to you by your health care provider. Make sure you discuss any questions you have with your health care provider. Document Revised: 08/03/2020 Document Reviewed: 06/10/2020 Visualnet Patient Education ? [address] [employer] Inc[address] [facility] Physician Referralon 024 Physician Referral [id number] #1.00TIFF Normal [facility] ECG 12-Leadon 11-22-2023 ECG 12-Lead [id number]#1 .00TIFF Normal [facility] ECG 12-Lead [id number]#1 .00TIFF Normal [facility] Lab Reportson 11-22-2023 Lab Reports [id number]#1 .00TIFF Normal [facility] Lab Reports [id number]#1 .00TIFF Normal [facility] Lab Reports [id number]#1 .00TIFF Normal [facility] Ambulatory Visit Summaryon 1 01-06-2023 Ambulatory [...] PM EST With: Cortez Degroot MD Where: [facility] Invalid Interpretation Code [address] [place] [address]- \.br\ Saturday 2:15 PM EST \.br\ With: Shahab PATTON MD\.br\ Where: [facility] Consultation Noteon 10-23-20 Consultation Note [id number]# 1.00TIFF Normal [facility] Consent for Procedure/Surger yon 10-22-2023 Consent for Procedure/Surgery [id number]#[address] [facility] Ambulatory Visit Summaryon 1 12-08-2022 Ambulatory Visit [...] Follow-Up Appointments Saturday 11:00 AM EST With: JENN GUERIN, Shahab Carrasquillo Where: [facility] Patient Educationon 10-08-20 Patient Education Urology Transurethral [...] including vitamins, herbs, eye drops, creams, and mfzt-vlx-ysrhurq medicines. ? Any problems you or family [...] tells you to take them. ? Taking rorl-vtb-pnwzwrp medicines, vitamins, herbs, and supplements. Surgery safety [...] health care (more content not included)... Normal [facility] Urology Office/Clinic Noteon 10-08-2023 Urology Office/Clinic [...] Retention of urine, unspecified) Pt presented to [facility] ER 07/07/23 for retention. Pt was [...] E&M of Est. Patient Moderate 30-39 Min 73106 3. 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 Patient Moderate 30-39 Min 84762 4. 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 Patient Moderate 30-39 Min 11310 Orders: oxybutynin, See Instructions, PRN for urinary discomfort, 1 tab po q 6 hrs PRN bladder spasms/leaking around [place], up to TID, # 30 tab(s), Refills(s) 3, Pharmacy: [facility]/pharmacy #[id number], 180, cm, 10/08/23 12:12:00 EST, Height/Length Dosing, 123, kg, 10/08/23 12:12:0... Follow-up With When Contact Information JENN GUERIN, Shahab Carrasquillo, URL [address] [place] [address]- Additional Instructions: Schedule TURP Patient Education Transurethral [...] Former s (more content not included)... Normal [facility] Comment on above: Result Comment: Elec [...] including vitamins, herbs, eye drops, creams, and vvbx-wrr-bufplee medicines. ? Any problems you or family [...] tells you to take them. ? Taking xnlo-fjc-kpgbdsx medicines, vitamins, herbs, and supplements. Surgery safety [...] health care (more content not included)... Normal [facility] Consent for Procedure/Surger yon 09-03-2023 Consent for Procedure/Surgery [id number]#[address] [facility] Consent for Treatmenton 08-25 Consent for Treatment [id number] [facility] IntraOperative Documentson 1 IntraOperative Documents [id number] [facility] IntraOperative Documents [id number] [facility] Main OR Intraoperative Recor don 09-03-2023 Main OR Intraoperative Record IntraOp Document Type FTURO Summary Primary Physician: Shahab PATTON MD Finalized Date/Time: 09/03/23 16:31:34 Pt. Name: EUGENIA GIL D.O.B./Sex: 1950 Male Med Rec #: [id number] Physician: Shahab PATTON MD Financial #: [id number] Pt. Type: O Room/Bed: / Admit/Disch: 09/03/23 14:52:15 - Institution: Case Times FTURO Entry 1 Patient Times In Room 09/03/23 16:12:00 Out Room 09/03/23 16:31:00 Procedure Times Start 09/03/23 16:17:00 Stop 09/03/23 16:24:00 Anesthesia Times Last Modified By: Faiza Figueroa RN 09/03/23 16:31:29 General Comments: 18F COUDE CATH PLACED. LIVE MARION Case Attendance FTURO Entry 1 Entry 2 Entry 3 Case Attendee JENN GUERIN, Shahab Hemphill GATE KEEPER, Faiza Figueroa RN, Faiza Cruz Role Performed Surgeon - Primary Scrub - Primary Instructional Specialist - Primary Time In 09/03/23 16:12:00 09/03/23 16:12:00 09/03/23 16:12:00 Time Out 09/03/23 16:31:00 09/03/23 16:31:00 09/03/23 16:31:00 Procedure CYSTOSCOPY LOCAL(.) CYSTOSCOPY LOCAL(.) CYSTOSCOPY LOCAL(.) Comments Last Modified By: Faiza Figueroa RN, RN, Kimberly Y Barbee RN, Kimberly Y 09/03/23 16:31:30 09/03/23 16:31:30 09/03/23 16:31:30 Surgical Procedures FTURO Entry 1 Procedure Description Procedure CYSTOSCOPY LOCAL Modifiers . Surgeon Description CYSTOSCOPY LOCAL Primary Procedure Yes Primary Surgeon JENN GUERIN, Shahab Carrasquillo Start 09/03/23 16:17:00 Stop 09/03/23 16:24:00 Anesthesia [...] AND INCOMPLETE EMPTYING Last Modified By: Faiza Figeuroa RN 09/03/23 16:09:20 Post-Care Text: The patient [...] PATTON MD, Verified (If Participants Faiza Hemphill CST Applicable) [...] By: Faiza Figueroa RN 09/03/23 16:[address] [facility] Main OR Preoperative Recordo n 09-03-2023 Main OR Preoperative Record Holding Area Document Type FTURO Summary Primary Physician: Shahab PATTON MD Finalized Date/Time: 09/03/23 16:08:42 Pt. Name: EUGENIA GIL D.O.B./Sex: 1950 Male Med Rec #: [id number] Physician: Shahab PATTON MD Financial #: [id number] Pt. Type: O Room/Bed: / Admit/Disch: 09/03/23 [...] pain in left knee Skin Integrity Intact, [place], Warm, & Dry Vitals - EU Blood Pressure 144/84 Pulse 92 bpm Respirations 20 br/min SPO2 95 % RN Reviewed Yes Last Modified By: Faiza Figueroa RN 09/03/23 16:08:41 General Comments: Temp 97.3 Finalized By: Faiza Figueroa RN Document Signatures Signed By: Ruby Flores LPN 09/03/23 16:02 Faiza Figueroa RN 09/03/23 16:[address] [facility] Operative Reporton Operative Report Patient: EUGENIA GIL Age: 72 years Sex: Male : 1950 Associated Diagnoses: None Author: Shahab PATTON MD Procedure Operative Information Details: Date/ Time: 09/03/2023 16:33:00. 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 Post-Op Dx: Same. Anesthesia Type: Local. Procedure: Local Cystoscopy. Complications: None. Risks/Benefits/Inform ed Consent: Surgical risks, benefits, details of the [...] it for now. We replaced an 18 [place] catheter. He will get that changed in a month. He will call us if he is interested in going forward with a TURP.. Normal [facility] Comment on above: Result Comment: Elec tronically Signed By: Shahab PATTON MD\.br\Date and Time Signed: 09/03/23 16:35 EDT Patient Educationon 09-03-20 23 Patient Education Normal [facility] Ambulatory Visit Summaryon 0 08-12-2023 Ambulatory Visit Summary EUGENIA GIL :1950 Visit Date:08/12/2023 Ambulatory Visit Instructions Your Care Team Attending Physician - Shahab PATTON MD Primary Care Physician - Zane GUERIN, Cortez Erwin This Is Your Medications List ciprofloxacin (Cipro 500 mg Tab) tamsulosin (tamsulosin 0.4 mg Cap) warfarin What to do next Scheduled Follow-Up Appointments Saturday 8:15 AM EDT Where: [facility] Surgical Services Saturday 3:00 PM EDT Where: [facility] Services Saturday 3:45 PM EDT Where: [facility] Services Saturday 1:00 PM EST Where: [facility] Lab Reportson 08-11-2023 Lab Reports [id number] .00CD:[address] [facility] Formson 08-06-2023 Forms [id number]. 00CD:[address] [facility] Lab Reportson 08-06-2023 Lab Reports [id number] .00CD:[address] [facility] Ambulatory Visit Summaryon 0 08-05-2023 Ambulatory Visit Summary EUGENIA GIL :1950 Visit Date:08/05/2023 Ambulatory Visit Instructions Your Diagnosis Urinary retention Prostate cancer screening Anticoagulated Tests Performed Urnls Dip Stick Auto w/o Microscopy POC 32586 Your Care Team Attending Physician - JENN [...] ALYSSA When: Where: [facility] [address] [place] [address] [phone] Medications What How Much When Instructions Unchanged tamsulosin (tamsulosin 0.4 mg Cap) 1 Capsules By Mouth Every day Unchanged warfarin By Mouth Every day Contact prescribing physician if questions or concerns Test Results Urnls Dip Stick Auto w/o Microscopy POC 50785 (08/05/2023) Bilirubin Urine Dipstick - Negative Blood Urine Dipstick - 2+ Moderate Glucose Urine Dipstick - Negative Ketones Urine Dipstick - Negative Leukocytes Urine Dipstick - 1+ Small Nitrite Urine Dipstick - Negative Protein Urine Dipstick - 3+ (300 mg/dl) Specific [place] Urine Dipstick - 1.025 Urine Appearance Urine Dipstick - Clear Urine Color Urine Dipstick - Yellow Urobilinogen Urine Dipstick - Normal 0.2-1 EU/dl pH Urine Dipstick - 7 Allergies No Known Allergies Problems Ongoing - Any problem that you are currently receiving treatment for. Anticoagulated Prostate cancer screening Urinary retention Normal [facility] ED Note-Physicianon 08-05-20 ED Note-Physician [id number] .00CD:[address] [facility] Patient Educationon 08-05-20 Patient Education Urology [...] including vitamins, herbs, eye drops, creams, and tjfh-myi-vabcvqx medicines. ? Whether you are or may [...] results be (more content not included)... Normal 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 07/07/23 for urinary retention Never been seen [...] emptying for many months. Pt prestent to [facility] ER 07/07/23 for retention. Pt was [...] Will order one now. 3. Anticoagulated (Z79.01: halfway (current) use of anticoagulants) On Warfarin. 4. Former smoker (Z87.891: Personal history of nicotine dependence) Increased risk for urothelial cancer. Follow-up With When Contact Information JENN GUERIN, Shahab Carrasquillo, URL [facility] [address], [place] [address] [phone] Additional Instructions: sched Cysto/UDS PSA Patient Education [...] Allergies Immunizations Vaccine Date Status SARS-CoV-2 (COVID-19) [id number].ORD![id number] 12/13/2022 Recorded SARS-CoV-2 (COVID-19) mRNA BNT-162b2 vax 10/30/2021 Recorded SARS-CoV-2 (COVID-19) mRNA BNT-162b2 vax 02/14/2021 Recorded SARS-CoV-2 (COVID-19) mRNA BNT-162b2 vax 01/23/2021 Recorded Lab Results Ambulatory Point of Care Results Bilirubin Urine Dipstick: Negative (08/05/23 12:18:00) Blood Urine Dipstick: 2+ Moderate (08/05/23 12:18:00) Glucose Urine Dipstick: Negative (08/05/23 12:18:00) Ketones Urine Dipstick: Negative (08/05/23 12:18:00) L (more content not included)... Normal [facility] Comment on above: Result Comment: Elec tronically Signed By: Andra Jamil.br\Date and Time Signed: 08/05/23 13:29 EDT Vital Signs Date Time Vital Sign Value Performing Clinician Nick gray 07-31-2024 10:41-0400 Body temperature 98.6 [degF] Shahab PATTON [facility] 07-31-2024 10:41-0400 Diastolic blood pressure 85 mm[Hg] Shahab PATTON [facility] 07-31-2024 10:41-0400 Heart rate 77 /min Shahab PATTON [facility] 07-31-2024 10:41-0400 Respiratory rate 16 /min Shahabmaty PATTON [facility] 07-31-2024 10:41-0400 Systolic blood pressure 136 mm[Hg] Shahabmaty PATTON [facility] 05-20-2024 10:07-0400 Blood Pressure Location Paul Barbosa [facility] 05-20-2024 10:07-0400 Diastolic blood pressure 79 mm[Hg] Paul Barbosa [facility] 05-20-2024 10:07-0400 Heart rate 76 /min Paul Barbosa [facility] 05-20-2024 10:07-0400 Respiratory rate 16 /min Paul Barbosa [facility] 05-20-2024 10:07-0400 SaO2% (BldA) [Mass fraction] 89 % Paul Barbosa [facility] 05-20-2024 10:07-0400 Systolic blood pressure 132 mm[Hg] Paul Barbosa [facility] 04-14-2024 12:31-0400 Blood Pressure Location Rae Luis [facility] 04-14-2024 12:31-0400 Body temperature 98.06 [degF] Rae Orzech [facility] 04-14-2024 12:31-0400 Diastolic blood pressure 77 mm[Hg] Rae Orzech [facility] 04-14-2024 12:31-0400 Heart rate 97 /min Rae Orzech [facility] 04-14-2024 12:31-0400 Respiratory rate 16 /min Rae Orzech [facility] 04-14-2024 12:31-0400 Systolic blood pressure 125 mm[Hg] Rae Orzech [facility] 04-07-2024 14:03-0400 Blood Pressure Location Paul Barbosa [facility] 04-07-2024 14:03-0400 Diastolic blood pressure 84 mm[Hg] Paul Barbosa [facility] 04-07-2024 14:03-0400 Heart rate 83 /min Paul Barbosa [facility] 04-07-2024 14:03-0400 Systolic blood pressure 130 mm[Hg] Paul Barbosa [facility] 12-13-2023 10:31-0500 Blood Pressure Location Aditya Nino [facility] 12-13-2023 10:31-0500 Diastolic blood pressure 80 mm[Hg] Aditya Nino [facility] 12-13-2023 10:31-0500 Heart rate 86 /min Aditya Nino [facility] 12-13-2023 10:31-0500 SaO2% (BldA) [Mass fraction] 91 % Aditya Nino [facility] 12-13-2023 10:31-0500 Systolic blood pressure 120 mm[Hg] Aditya Nino [facility] 08-12-2023 13:50-0400 Body height 180.34 cm Beth Calvillomond Other [employer] Other 08-12-2023 13:50-0400 Body mass index (BMI) [Ratio] 45.07 kg/m2 Beth Calvillomond Other [employer] Other 08-12-2023 13:50-0400 Body temperature 96.6 [degF] Beth Calvillomond Other [employer] Other 08-12-2023 13:50-0400 Body weight 146.6 kg Beth Joseph Other [employer] Other 08-12-2023 13:50-0400 Diastolic blood pressure 82 mm[Hg] Beth Calvillomond Other [employer] Other 08-12-2023 13:50-0400 Respiratory rate 18 /min Beth Opal Other [employer] Other 08-12-2023 13:50-0400 SaO2% (BldA) [Mass fraction] 97 % Beth Opal Other [employer] Other 08-12-2023 13:50-0400 Systolic blood pressure 142 mm[Hg] Beth Opal Other [employer] Other 08-05-2023 12:21-0400 Blood Pressure Location Shahab PATTON [facility] 08-05-2023 12:21-0400 Body temperature 97.52 [degF] Shahab PATTON [facility] 08-05-2023 12:21-0400 Diastolic blood pressure 88 mm[Hg] Shahab PATTON [facility] 08-05-2023 12:21-0400 Heart rate 88 /min Shahab PATTON [facility] 08-05-2023 12:21-0400 Systolic blood pressure 132 mm[Hg] Shahab PATTON [facility] Encounters Encounter Date Encounter Type Care Provider Facility Start: 05-10-2025 ambulatory MD Cortez Degroot Facil ity:[facility] Start: 08-24-2024 ambulatory MD Cortez Degroot Facil ity:[facility] Start: 07-31-2024 ambulatory Shahab PATTON Facili ty:[facility] Start: 07-31-2024 End: 07-31-2024 Patient encounter procedure Shahab PATTON [facility] Start: 07-13-2024 End: 07-13-2024 ambulatory MD Cortez Degroot Facility:[facility] Start: 07-06-2024 ambulatory MD Cortez Degroot Facil ity:CD:[id number] Start: 07-06-2024 End: 07-06-2024 ambulatory Shahab PATTON Facility:[facility] Start: 07-06-2024 End: 07-06-2024 Patient encounter procedure Shahab PATTON [facility] Start: 07-02-2024 End: 07-02-2024 ambulatory Shahab Patton [facility] Work Phone: Start: 07-02-2024 End: 07-02-2024 Departed Referred MD Shahab Patton Work Phone: [facility] Start: 07-02-2024 End: 07-02-2024 ambulatory Shahab PATTON Facility::[id number] Start: 06-09-2024 End: 06-09-2024 ambulatory Rae X Orzech Facility:[facility] Start: 06-09-2024 End: 06-09-2024 Patient encounter procedure Rae X Orzech [facility] Start: 05-20-2024 End: 05-20-2024 ambulatory Paul Barbosa Facility:[facility] Start: 05-20-2024 End: 05-20-2024 Patient encounter procedure Paul Barbosa [facility] Start: 05-20-2024 End: 05-20-2024 Preprocedural examination done Paul Barbosa [facility] Start: 05-12-2024 End: 05-12-2024 ambulatory ESPERANZA LIVE Facility:[facility] Start: 05-12-2024 End: 05-12-2024 Patient encounter procedure ESPERANZA LIVE [facility] Start: 05-11-2024 End: 05-11-2024 ambulatory Cortez Degroot Facility:[facility] Start: 04-17-2024 End: 04-17-2024 Admission to same day surgery center Aditya Nino [facility] Start: 04-17-2024 End: 04-17-2024 ambulatory Aditya Nino Facility:[facility] Start: 04-14-2024 End: 04-14-2024 ambulatory Rae X Orzech Facility:[facility] Start: 04-14-2024 End: 04-14-2024 Patient encounter procedure Rae X Orzech [facility] Start: 04-07-2024 End: 04-07-2024 ambulatory Paul Barbosa Facility:[facility] Start: 04-07-2024 End: 04-07-2024 Patient encounter procedure Paul Barbosa [facility] Start: 04-07-2024 End: 04-07-2024 ambulatory XXXX NONE Facility:[facility] Start: 04-07-2024 End: 04-07-2024 Patient encounter procedure Paul Barbosa [facility] Start: 03-10-2024 End: 03-10-2024 ambulatory ESPERANZA LIVE Facility:[facility] Start: 03-10-2024 End: 03-10-2024 Patient encounter procedure ESPERANZA LIVE [facility] Start: 03-09-2024 End: 03-09-2024 ambulatory Cortez Degroot Facility:[facility] Start: 02-11-2024 End: 02-11-2024 ambulatory Shahab PATTON Facility:[facility] Start: 02-11-2024 End: 02-11-2024 Patient encounter procedure Shahab PATTON [facility] Start: 02-06-2024 End: 02-06-2024 ambulatory Aditya Nino Facility:[facility] Start: 02-06-2024 End: 02-06-2024 Patient encounter procedure Aditya Nino [facility] Start: 01-06-2024 End: 01-06-2024 ambulatory Shahab PATTON Facility:[facility] [place] Start: 01-06-2024 End: 01-06-2024 Patient encounter procedure [facility]ab PATTON [facility] Start: 12-30-2023 End: 12-30-2023 ambulatory Cortez Degroot Facility:[facility] Start: 12-26-2023 ambulatory Shahab PATTON Facility :[facility] Start: 12-19-2023 End: 03-19-2024 ambulatory Cortez Degroot Facility:[facility] Start: 12-19-2023 End: 03-19-2024 Recurring Cortez Degroot [facility] Start: 12-13-2023 End: 12-13-2023 ambulatory Cortez Degroot Facility:[facility] Start: 12-13-2023 End: 12-13-2023 Patient encounter procedure Aditya Nino [facility] Start: 12-09-2023 End: 12-09-2023 ambulatory Shahab PATTON Facility: [facility] Start: 12-09-2023 End: 12-09-2023 Patient encounter procedure Shahab PATTON [facility] Start: 12-05-2023 End: 12-05-2023 ambulatory Shahab PTATON Facility:[facility] [place] Start: 12-05-2023 End: 12-05-2023 Off-Site Shahab PATTON [facility] Start: 11-28-2023 End: 11-28-2023 ambulatory Cortez Degroot Facility:[facility] Start: 11-05-2023 End: 11-05-2023 ambulatory Shahab Foreign JENN Facility:[facility] Start: 10-08-2023 End: 10-08-2023 ambulatory ESPERANZA LIVE Facility:[facility] Start: 10-08-2023 End: 10-08-2023 Patient encounter procedure ESPERANZA LIVE [facility] Start: 09-03-2023 End: 09-03-2023 ambulatory Shahab R PATTON Facility:[facility] Start: 08-12-2023 Office outpatient ne w 10 minutes Beth Joseph [facility] [place] Start: 08-12-2023 End: 08-12-2023 ambulatory Shahab Foreign JENN [employer] Other Start: 08-12-2023 End: 08-12-2023 Patient encounter procedure Shahabmaty PATTON [facility] Start: 08-05-2023 End: 08-05-2023 ambulatory Shahabmaty PATTON Facility:[facility] Start: 08-05-2023 End: 08-05-2023 Patient encounter procedure Shahab PATTON [facility] Start: 07-11-2023 ambulatory Shahabmaty PATTON Facility :[facility] [place] Start: 03-25-2023 End: 04-24-[address] NONE LISTED REQUEST Facility:[facility] Start: 02-25-2023 End: 03-22-[address] NONE LISTED REQUEST Facility:[facility] Start: 01-23-2023 End: 02-22-[address] NONE LISTED REQUEST Facility:[facility] Start: 12-26-2022 End: 01-23-2023 ambulatory SHAIKH Chris MONROE Facility:[facility] Start: 11-26-2022 End: 12-26-2022 ambulatory JALLOH H FAWWAD Facility:[facility] Start: 10-25-2022 End: 11-25-2022 ambulatory SHAIKH Chris FOLEYD Facility:[facility] Start: 09-25-2022 End: 10-24-2022 ambulatory H TYSONWAD Facility:[facility] Start: 08-27-2022 End: 09-24-2022 ambulatory SHAIKH Chris MEHTAWAD Facility:[facility] Start: 07-26-2022 End: 08-25-2022 ambulatory H TYSONWAD Facility:[facility] Start: 06-25-2022 End: 07-25-2022 ambulatory SHAIKH Chris MEHTAWAD Facility:[facility] Start: 05-25-2022 End: 06-22-2022 ambulatory SHAIKH Chris MEHTAWAD Facility:[facility] Procedures Date Procedure Procedure Detail Performing Clinician Start: 07-02-2024 Transurethral prostatectomy Shahab PATTON Start: 04-17-2024 Catheterization of l eft heart ESPERANZA LIVE Tonsillectomy Paul Barbosa Plan of Treatment Date Care Activity Detail Author Start: 07-02-2024 [facility] Immunizations Immunization Date Immunization Notes Care Provider [facility] 12-13-2022 SARS-CoV-2 (COVID-19 ) mRNAMUL.ORD![id number] Shahab PATTON [facility] 10-30-2021 SARS-CoV-2 (COVID-19 ) mRNA BNT-162b2 vax Shahab PATTON [facility] 02-14-2021 SARS-CoV-2 (COVID-19 ) mRNA BNT-162b2 vax Shahab PATTON [facility] 01-23-2021 SARS-CoV-2 (COVID-19 ) mRNA BNT-162b2 osvaldox Shahab PATTON [facility] Payers Date Payer Category Payer Self-pay 2022 Unknown [id number] 1959 Unknown [id number] 1950 Unknown [id number] 2.16.84 0.1.199855.3.579.2.593 1950 Unknown [id number] 2.16.84 0.1.999812.3.579.2.593 1950 Unknown [id number] 2.16.84 0.1.116230.3.579.2.593 1950 Unknown [id number] 2.16.84 0.1.839573.3.579.2.593 1950 Unknown [id number] 2.16.84 0.1.924934.3.579.2.593 1950 Unknown [id number] 2.16.84 0.1.340134.3.579.2.593 1950 Unknown [id number] 2.16.84 0.1.263502.3.579.2.593 1950 Unknown [id number] 2.16.84 0.1.396241.3.579.2.593 1950 Unknown [id number] 2.16.84 0.1.333060.3.579.2.593 1950 Unknown [id number] 2.16.84 0.1.127092.3.579.2.593 1950 Unknown [id number] 2.16.84 0.1.885872.3.579.2.593 1950 Unknown [id number] 2.16.8 40.1.003291.3.579.2.727 1950 Unknown [id number] 2.16.8 40.1.496422.3.579.2.727 1950 Unknown [id number] 2.16.8 40.1.525026.3.579.2.727 1950 Unknown [id number] 2.16.8 40.1.737758.3.579.2.727 1950 Unknown [id number] 2.16.8 40.1.302215.3.579.2.727 1950 Unknown [id number] 2.16.8 40.1.735542.3.579.2.727 1950 Unknown [id number] 2.16.8 40.1.060172.3.579.2.727 1950 Unknown [id number] 2.16.8 40.1.865999.3.579.2.727 1950 Unknown [id number] 2.16.8 40.1.160814.3.579.2.727 1950 Unknown [id number] 2.16.8 40.1.387914.3.579.2.727 1950 Unknown [id number] 2.16.8 40.1.072015.3.579.2.727 1952 Unknown [id number] 2.16.8 40.1.438037.3.579.2.727 1952 Unknown [id number] 2.16.8 40.1.783619.3.579.2.727 1952 Unknown [id number] 2.16.8 40.1.440101.3.579.2.727 1952 Unknown [id number] 2.16.8 40.1.784445.3.579.2.727 1952 Unknown [id number] 2.16.8 40.1.082601.3.579.2.727 1952 Unknown [id number] 2.16.8 40.1.858770.3.579.2.727 1952 Unknown [id number] 2.16.8 40.1.987886.3.579.2.727 1952 Unknown [id number] 2.16.8 40.1.929091.3.579.2.727 1952 Unknown [id number] 2.16.8 40.1.913164.3.579.2.727 1952 Unknown [id number] 2.16.8 40.1.002960.3.579.2.727 1952 Unknown [id number] 2.16.8 40.1.311870.3.579.2.727 1950 Unknown [id number] 2.16.8 40.1.608504.3.579.2.727 1952 Unknown [id number] 2.16.8 40.1.217067.3.579.2.727 1952 Unknown [id number] 2.16.8 40.1.023067.3.579.2.727 1952 Unknown [id number] 2.16.8 40.1.931088.3.579.2.727 1952 Unknown [id number] 2.16.8 40.1.136346.3.579.2.727 1952 Unknown [id number] 2.16.8 40.1.502298.3.579.2.727 1952 Unknown [id number] 2.16.8 40.1.329574.3.579.2.727 1952 Unknown [id number] 2.16.8 40.1.324580.3.579.2.727 1952 Unknown [id number] 2.16.8 40.1.804772.3.579.2.727 1952 Unknown [id number] 2.16.8 40.1.429789.3.579.2.727 1952 Unknown [id number] 2.16.8 40.1.138652.3.579.2.727 1950 Unknown [id number] 2.16.8 40.1.672376.3.579.2.727 Social History Date Type Detail Facility Tobacco smoking status [facility] Sex Assigned At Male [facility] Start: 10-08-2023 End: 07-31-2024 Tobacco smoking status Ex-smoker (finding) [facility] Comment on above: Patient states he sm oked 1 PPD from 19 y.o. to 69 y.o. Start: 12-13-2023 Tobacco smoking status Former smokeless tobacco user, quit more than 30 days ago [facility] Comment on above: Patient states he sm oked 1 PPD from 19 y.o. to 69 y.o. Start: 08-12-2023 Tobacco smoking stat [facility] Smoker (finding) [facility] Start: 1950 Sex Assigned At Male [facility] Functional Status Date Assessment Result Facility 07-31-2024 Functional Status N/A [facility] 05-20-2024 Functional Status N/A [facility] 04-17-2024 Functional Status N/A [facility] 04-14-2024 Functional Status N/A [facility] 04-07-2024 Functional Status No [facility] 12-13-2023 Functional Status No [facility] 10-08-2023 Functional Status N/A [facility] 08-05-2023 Functional Status N/A [facility] Clinical Notes 12-19-2019 to 07-31-2024 Note Date & Type Note Facility 07-31-2024 Hospital Discharge instructions Patient Education 07/31/2024 11:38:43 Transurethral Resection of the Prostate, Care After Transurethral Resection of the Prostate, Care After The following information offers guidance on how to care for yourself after your procedure. Your health care provider may also give you more specific instructions. If you have problems or questions, contact your health care provider. What can I expect after the procedure? After the procedure, it is common to have: Mild pain in your lower abdomen. Soreness or mild discomfort in your penis or when you urinate. This is from having the catheter inserted during the procedure. A sudden urge to urinate (urgency). A need to urinate often. A small amount of blood in your urine. You may notice some small blood clots in your urine. These are normal. Follow these instructions at home: Medicines Take nbsn-zwa-tmvyeoh and prescription medicines only as told by your health care provider. If you were prescribed an antibiotic medicine, take it as told by your health care provider. Do not stop taking the antibiotic even if you start to feel better. Activity Rest as told by your health care provider. Avoid sitting for a long time without moving. Get up to take short walks every 1 2 hours. This is important to improve blood flow and breathing. Ask for help if you feel weak or unsteady. You may increase your physical activity gradually as you start to feel better. Do not drive or operate machinery until your health care provider says that it is safe. Do not ride in a car for long periods of time, or as told by your health care provider. Avoid intense physical activity for as long as told by your health care provider. Do not lift anything that is heavier than 10 lb (4.5 kg), or the limit that you are told, until your health care provider says that it is safe. Do not have sex until your health care provider approves. Return to your normal activities as told by your health care provider. Ask your health care provider what activities are safe for you. Preventing constipation You may need to take these actions to prevent or treat constipation: Drink enough fluid to keep your urine pale yellow. Take orjt-wkp-cfwkmzm or prescription medicines. Eat foods that are high in fiber, such as beans, whole grains, and fresh fruits and vegetables. Limit foods that are high in fat and processed sugars, such as fried or sweet foods. General instructions Do not strain when you have a bowel movement. Straining may lead to bleeding from the prostate. This may cause blood clots and trouble urinating. Do not use any products that contain nicotine or tobacco. These products include cigarettes, chewing tobacco, and vaping devices, such as e-cigarettes. If you need help quitting, ask your health care provider. If you go home with a tube draining your urine (urinary catheter), care for the catheter as told by your health care provider. Wear compression stockings as told by your health care provider. These stockings help to prevent blood clots and reduce swelling in your legs. Keep all follow-up visits. This is important. Contact a health care provider if: You have signs of infection, such as: ?Fever or chills. ?Urine that smells very bad. ?Swelling around your urethra that is getting worse. ?Swelling in your penis or testicles. You have difficulty urinating. You have pain that gets worse or does not improve with medicine. You have blood in your urine that does not go away after 1 week of resting and drinking more fluids. You have trouble having a bowel movement. You have trouble having or keeping an erection. No semen comes out during orgasm (dry ejaculation). You have a urinary catheter in place, and you have: ?Spasms or pain. ?Problems with your catheter or your catheter is blocked. Get help right away if: You are unable to urinate. You are having more blood clots in your urine instead of fewer. You have: ?Large blood clots. ?A lot of blood in your urine. ?Pain in your back or lower abdomen. You have difficulty breathing or shortness of breath. You develop swelling or pain in your leg. These symptoms may be an emergency. Get help right away. Call 911. Do not wait to see if the symptoms will go away. Do not drive yourself to the hospital. Summary After the procedure, it is common to have a small amount of blood in your urine. Follow restrictions about lifting and sexual activity as told by your health care provider. Ask what activities are safe for you. Keep all follow-up visits. This is important. This information is not intended to replace advice given to you by your health care provider. Make sure you discuss any questions you have with your health care provider. Document Revised: 08/07/2022 Document Reviewed: 08/07/2022 Visualnet Patient Education 2023 [employer]. Follow Up Care 05/25/2024 11:59:23 With:JENN GUERIN, Shahab Carrasquillo, MAGGYL Address: [facility] [address] , [place] [phone] When: Unknown [facility] [place] 04-27-2024 Note Procedure [facility] poss PCI via right radial for preop [...] Plan: Patient agrees to IV sedation plan [facility] Comment on above: Result Comment: Elec tronically Signed By: Mica GUERIN, Aditya Orta\.br\Date and Time Signed: 04/27/24 12:02 EDT 04-21-2024 Note [id number]#1.00TIFF [facility] 04-17-2024 Hospital Discharge instructions Patient Education 04/17/2024 07:44:44 Cardiovascular Discharge Instructions - Revised 11/16/15 (CUSTOM) [place], [place] DISCHARGE INSTRUCTIONS Diet: Resume pre-procedure diet. [...] hours post procedure: Actoplus MetGlucophageGlucophage XR GlucovanceAvandametFortamet Fgn-hwhcofzgrWiijmdZrsx-avinhblpd GlumetzaJanumetMetaglip RiometGlycomet *Minimal pain, soreness and/or discomfort [...] you are interested in smoking cessation, contact [facility] at [phone], ext. [phone]. In the event you are unable to reach your physician, please call [facility] at [phone] and the rounding and backing machine operator will assist you. Discharging Nurse Physician Date/Time Patient or Responsible [employer] Party Revised 07-02, 03-03, 12-07, 11-08 Follow Up Care 04/08/2024 10:03:08 With:Paul Barbosa Address: [address] [place] [phone] Business (1) When:05/20/2024 09:45:00 [facility] 04-14-2024 Hospital Discharge instructions Patient Education 04/14/2024 [...] urethra. Follow these instructions at home: Take rjth-mat-iftydeu and prescription medicines only as told by [...] provider. Document Revised: 05/30/2022 Document Reviewed: 05/30/2022 Visualnet Patient Education 2022 [employer]. 04/14/2024 13:24:15 Urinary Incontinence Urinary Incontinence Urinary [...] nerve stimulation). ?For women, using a medical coder to prevent urine leaks. This is a [...] right after experiencing incontinence. General instructions Take tzml-dka-qqkeeze and prescription medicines only as told by [...] important. Where to find more information National [place] of Diabetes and Digestive and Kidney Diseases: www.niddk.nih.gov [place] U[employer] Association: www.urologyhealth.org Contact a health care [...] provider. Document Revised: 06/16/2021 Document Reviewed: 06/16/2021 Visualnet Patient Education 2022 [employer]. 04/14/2024 13:24:11 Acute Urinary Retention, Male Acute [...] Follow these instructions at home: Medicines Take svrv-zoy-zccbxpx and prescription medicines only as told by [...] provider. Document Revised: 08/02/2021 Document Reviewed: 08/02/2021 Elsevier Patient Education 2022 [employer]. Follow Up Care 03/10/2024 12:55:54 With:ELEAZAR Luis APRN, DARIUS Bustamante, URL Address: When: Unknown Comments:or another BELA for cath change, 4 wks [facility] 04-14-2024 Hospital Discharge instructions Follow Up Care 04/14/2024 13:09:53 With:ESPERANZA LIVE PA-C, URL Address: [address] [place] [address] [phone] When: Unknown [facility] 12-24-2023 Note Echocardiology Procedure Exam Date/Time Accession # Ordering Echo Transthoracic 12/19/2023 08:56 EST [id number] Cortez Degroot MD Complete CPT code 03766 [id number] Reason for Exam (Echo Transthoracic Complete) Shortness of breath (SOB);Z76.89 Report Version: 1 Study ID: [id number] [facility] [address] [place] [address] Adult Echocardiogram Report Name: EUGENIA GIL Study Date: 12/19/2023, 8: 13 AM Patient Location: [facility] : 1950 (MM[birth year]DD/YYYY) Gender: Male Age: 73 Years Height: 180.34 cm BP: 139 / 83 mmHg Weight: 152.863 kg HR: 75 bpm BSA: 2.6 m? Ordering Physician: Cortez Degroot Referring Physician: Cortez Degroot Performed By: Aleksandra Wright ISSAC Reason For Study: Shortness of breath (SOB) [...] Signed by: Aditya Nino MD Transcribed by: [facility] Technologist: OSMAR [facility] 10-08-2023 Hospital Discharge instructions Patient Education [...] including vitamins, herbs, eye drops, creams, and pieg-kbr-bohhcoz medicines. Any problems you or family members [...] provider tells you to take them. Taking rnnj-kfo-arkuyyp medicines, vitamins, herbs, and supplements. Surgery safety [...] provider. Document Revised: 08/07/2022 Document Reviewed: 08/07/2022 Visualnet Patient Education 2022 [employer]. Follow Up Care 08/12/2023 13:22:25 With:JENN GUERIN, Shahab Carrasquillo, URL Address: [address] [place], [place] [id number]- When: Unknown [facility] 09-03-2023 Note [id number]#1.00TIFF [facility] 08-12-2023 Evaluation note Encounter Date Diagnosis [...] Contact dermatitis home care material was printed [employer] Other 09-11-2023 Hospital Discharge instructions Patient Education [...] including vitamins, herbs, eye drops, creams, and xkun-hfu-dgwhicb medicines. ?Whether you are or may be [...] provider. Document Revised: 07/25/2022 Document Reviewed: 06/16/2021 Visualnet Patient Education 2022 [employer]. 08/05/2023 13:14:39 Cystoscopy Cystoscopy Cystoscopy is [...] including vitamins, herbs, eye drops, creams, and hxzz-biw-eetuxtg medicines. Any problems you or family members [...] provider tells you to take them. Taking gvns-gut-gfrdavh medicines, vitamins, herbs, and supplements. Tests You [...] Follow these instructions at home: Medicines Take jmku-bdp-dbdtjer and prescription medicines only as told by [...] provider. Document Revised: 07/25/2022 Document Reviewed: 06/23/2021 Visualnet Patient Education 2022 [employer]. 08/05/2023 13:14:16 Acute Urinary Retention, Male Acute [...] Follow these instructions at home: Medicines Take zqrm-jch-ccfaoxy and prescription medicines only as told by [...] provider. Document Revised: 08/02/2021 Document Reviewed: 08/02/2021 Visualnet Patient Education 2022 [employer]. Follow Up Care 07/11/2023 10:33:42 With:JENN GUERIN, Shahab Carrasquillo, URL Address: [facility] [address], [place] [phone] When: Unknown Comments:sched Cysto/UDS [facility] 01-25-2020 Evaluation + Plan note Future Appointments Appointment Date:12/19/2023 08:00:00 AM Scheduled Provider: [facility] Type:CV Echo (FT) Appointment Date:12/19/2023 09:00:00 AM Scheduled Provider: [facility] Appointment Type:NM Myocard Spect Multi Rest/Stress-Res Appointment Date:12/19/2023 10:00:00 AM Scheduled Provider: [facility] Appointment Type:NM Myocard Spect Multi Rest/Stress - R Appointment Date:12/20/2023 02:30:00 PM Scheduled Provider: [facility] Appointment Type:NM Myocard Spect MultiRest/Stress-Stre Appointment Date:12/20/2023 03:30:00 PM Scheduled Provider: [facility] Appointment Type:NM Myocard Spect Multi Rest/Stress - S Appointment Date:12/30/2023 03:00:00 PM Scheduled Provider:Cortez Degroot MD [facility] Open Appointment Date:01/06/2024 11:00:00 AM Scheduled Provider: Location:[facility] Appointment Type:URO Nurse Visit Appointment Date:03/13/2024 01:15:00 PM Scheduled Provider:Aditya Nino MD [facility] [place] Appoint[facility] Type:Cardiology Follow Up (FT) Future Scheduled Tests Radiology* Echo Transthoracic Complete 12/19/23 * NM Myocardial Spect Rest/Stress 2 Day 12/19/23 * NM Myocardial Spect Part 2 11/28/23 * [facility]ments Appointment Date:08/12/2023 01:00:00 PM Scheduled Provider: Location:[facility] Appointment Type:URO Nurse Visit Appointment Date:08/30/2023 08:15:00 AM Scheduled Provider: Location:[facility] Appointment Type:Urology CALL PAT FT Appointment Date:09/03/2023 03:00:00 PM Scheduled Provider: Location:[facility] Appointment Type:Urology FT Appointment Date:09/03/2023 03:45:00 PM Scheduled Provider: Location:[facility] Appointment Type:Urology FT Diagnostic Tests Pending * PSA Screen, Total 08/05/23 [facility] evaluation + Plan note Future Appointments Appointment Date:08/30/2023 08:15:00 AM Scheduled Provider: Location:[facility] Appointment Type:Urology CALL PAT FT Appointment Date:09/03/2023 03:00:00 PM Scheduled Provider: Location:[facility] Appointment Type:Urology FT Appointment Date:09/03/2023 03:45:00 PM Scheduled Provider: Location:[facility] Appointment Type:Urology FT Appointment Date:10/07/2023 01:00:00 PM Scheduled Provider: Location:[facility] Appointment Type:URO Nurse Visit [facility] evaluation + Plan note Future Appointments Appointment Date:12/20/2023 11:00:00 AM Scheduled Provider:Shahab PATTON MD Location:[facility] Appointment Type:URO Office Visit [facility] evaluation + Plan note Future Appointments Appointment Date:12/09/2023 10:00:00 AM Scheduled Provider: Location:[facility] Appointment Type:URO Nurse Visit Appointment Date:12/13/2023 10:15:00 AM Scheduled Provider:Aditya Nino MD [facility] [place] Appointment Type:Cardiology New Patient (FT) Appointment Date:12/19/2023 08:00:00 AM Scheduled Provider: [facility] Appoint[facility] Type:CV Echo (FT) Appointment Date:12/19/2023 09:00:00 AM Scheduled Provider: [facility] Appointment Type:NM Myocard Spect Multi Rest/Stress-Res Appointment Date:12/19/2023 10:00:00 AM Scheduled Provider: [facility] Appointment Type:NM Myocard Spect Multi Rest/Stress - R Appointment Date:12/20/2023 02:30:00 PM Scheduled Provider: [facility] Appointment Type:NM Myocard Spect MultiRest/Stress-Stre Appointment Date:12/20/2023 03:30:00 PM Scheduled Provider: Location[facility] Appointment Type:NM Myocard Spect Multi Rest/Stress - S Appointment Date:12/30/2023 03:00:00 PM Scheduled Provider:Cortez Degroot MD Location:[facility] Appointment Type: Open Future Scheduled Tests Radiology* Echo Transthoracic Complete 12/19/23 * NM Myocardial Spect Rest/Stress 2 Day 12/19/23 * NM Myocardial Spect Part 2 11/28/23 * XR Chest 2 Views 11/28/23 [facility] Evaluation + Plan note Future Appointments Appointment Date:12/13/2023 10:15:00 AM Scheduled Provider:Aditya Nino MD [facility] Appointment Type:Cardiology New Patient (FT) Appointment Date:12/19/2023 08:00:00 AM Scheduled Provider: [facility] Appoint[facility] Type:CV Echo (FT) Appointment Date:12/19/2023 09:00:00 AM Scheduled Provider: Location[facility] Appointment Type:NM Myocard Spect Multi Rest/Stress-Res Appointment Date:12/19/2023 10:00:00 AM Scheduled Provider: Location[facility] Appointment Type:NM Myocard Spect Multi Rest/Stress - R Appointment Date:12/20/2023 02:30:00 PM Scheduled Provider: [facility] Appointment Type:NM Myocard Spect MultiRest/Stress-Stre Appointment Date:12/20/2023 03:30:00 PM Scheduled Provider: [facility] Appointment Type:NM Myocard Spect Multi Rest/Stress - S Appointment Date:12/30/2023 03:00:00 PM Scheduled Provider:Cortez Degroot MD Location:[facility] Appointment Type:FM Open Appointment Date:01/06/2024 11:00:00 AM Scheduled Provider: Location:[facility] Appointment Type:URO Nurse Visit Future Scheduled Tests Radiology* Echo Transthoracic Complete 12/19/23 * NM Myocardial Spect Rest/Stress 2 Day 12/19/23 * NM Myocardial Spect Part 2 11/28/23 * XR Chest 2 Views 11/28/23 [facility] evaluation + Plan note Future Appointments Appointment Date:01/16/2024 08:00:00 AM Scheduled Provider: [facility] Appoint[facility] Type:CV Echo Stress (FT) Appointment Date:02/03/2024 11:30:00 AM Scheduled Provider: Location:[facility] Appointment Type:URO Nurse Visit Appointment Date:03/09/2024 01:15:00 PM Scheduled Provider:Cortez Degroot MD Location:[facility] Appointment Type: Open Appointment Date:03/13/2024 01:15:00 PM Scheduled Provider:Aditya Nino MD Location:[facility] Appointment Type:Cardiology Follow Up (FT) Future Scheduled Tests Radiology* EC Stress Echo Complete w/ Contrast 01/16/24 * NM Myocardial Spect Part 2 11/28/23 * XR Chest 2 Views 11/28/23 [facility] evaluation + Plan note Future Appointments Appointment Date:02/11/2024 01:00:00 PM Scheduled Provider: Location:[facility] Appointment Type:URO Nurse Visit Appointment Date:03/09/2024 01:15:00 PM Scheduled Provider:Cortez Degroot MD Location:[facility] Appointment Type: Open Appointment Date:03/13/2024 01:15:00 PM Scheduled Provider:Aditya Nino MD [facility] Type:Cardiology Follow Up (FT) Future Scheduled Tests Radiology* NM Myocardial Spect Part 2 11/28/23 * XR Chest 2 Views [facility]28/23 [facility] Appointment Date:03/09/2024 01:15:00 PM Scheduled Provider:Cortez Degroot MD Location:[facility] Appointment Type:FM Open Appointment Date:03/10/2024 01:00:00 PM Scheduled Provider: Location:[facility] Appointment Type:URO Nurse Visit Appointment Date:03/13/2024 01:15:00 PM Scheduled Provider:Aditya Nino MD [facility] Appointment Type:Cardiology Follow Up (FT) Future Scheduled Tests Radiology* NM Myocardial Spect Part 2 11/28/23 * XR Chest 2 Views 11/28/23 [facility] evaluation + Plan note Future Appointments Appointment Date:04/03/2024 01:45:00 PM Scheduled Provider:Rodolfo Alex MD Location:[facility] Appointment Type:Cardiology Follow Up (FT) Appointment Date:04/14/2024 01:00:00 PM Scheduled Provider: Location:[facility] Appointment Type:URO Nurse Visit Appointment Date:05/11/2024 01:00:00 PM Scheduled Provider: Location:[facility] Appointment Type: Medicare Wellness Subsequent Appointment Date:05/11/2024 02:00:00 PM Scheduled Provider:Cortez Degroot MD Location:[facility] Appointment Type:FM Open Future Scheduled Tests Radiology* NM Myocardial Spect Part 2 11/28/23 * XR Chest 2 Views 11/28/23 [facility] evaluation + Plan note Future Appointments Appointment Date:04/14/2024 01:00:00 PM Scheduled Provider: Location:[facility] Appointment Type:URO Nurse Visit Appointment Date:05/11/2024 01:00:00 PM Scheduled Provider: Location:[facility] Appointment Type: Medicare Wellness Subsequent Appointment Date:05/11/2024 02:00:00 PM Scheduled Provider:Cortez Degroot MD Location:[facility] Appointment Type:FM Open Future Scheduled Tests Radiology* CV Cardiovascular 04/08/24 * NM Myocardial Spect Part 2 11/28/23 * XR Chest 2 Views [facility]28[facility]23 [facility]ments Appointment Date:04/17/2024 09:00:00 AM Scheduled Provider: [facility] Type:CV Heart Cath (FT) Appointment Date:05/11/2024 01:00:00 PM Scheduled Provider: Location:[facility] Appointment Type: Medicare Wellness Subsequent Appointment Date:05/11/2024 02:00:00 PM Scheduled Provider:Cortez Degroot MD Location:[facility] Appointment Type: Open Appointment Date:05/12/2024 01:00:00 PM Scheduled Provider: Location:[facility] Appointment Type:URO Nurse Visit Future Scheduled Tests Radiology* CV Cardiovascular 04/17/24 * NM Myocardial Spect Part 2 11/28/23 * XR Chest 2 Views 11/28/23 [facility] evaluation + Plan note Future Appointments Appointment Date:05/11/2024 01:00:00 PM Scheduled Provider: Location:[facility] Appointment Type: Medicare Wellness Subsequent Appointment Date:05/11/2024 02:00:00 PM Scheduled Provider:Cortez Degroot MD Location:[facility] Appointment Type: Open Appointment Date:05/12/2024 01:00:00 PM Scheduled Provider: Location:[facility] Appointment Type:URO Nurse Visit Appointment Date:05/20/2024 09:45:00 AM Scheduled Provider:Paul Barbosa PA-C [facility] Type:Cardiology Follow Up (FT) Future Scheduled Tests Radiology* NM Myocardial Spect Part 2 11/28/23 * XR Chest 2 Views [facility]28/23 [facility]ments Appointment Date:05/20/2024 09:45:00 AM Scheduled Provider:Paul Barbosa PA-C [facility] Type:Cardiology Follow Up (FT) Appointment Date:06/09/2024 12:30:00 PM Scheduled Provider:ELEAZAR Luis APRN, [place] Location:[facility] Appointment Type:URO Office Visit Appointment Date:07/13/2024 01:15:00 PM Scheduled Provider:Cortez Degroot MD Location:[facility] Appointment Type:FM Open Appointment Date:05/10/2025 02:30:00 PM Scheduled Provider: Location:[facility] Appointment Type: Medicare Wellness Subsequent Future Scheduled Tests Radiology* NM Myocardial Spect Part 2 11/28/23 * XR Chest 2 Views 11/28/23 [facility] evaluation + Plan note Future Appointments Appointment Date:06/09/2024 12:30:00 PM Scheduled Provider:ELEAZAR Luis APRN, [place] X Location:[facility] Appointment Type:URO Office Visit Appointment Date:07/13/2024 01:15:00 PM Scheduled Provider:Cortez Degroot MD Location:[facility] Appointment Type: Open Appointment Date:05/10/2025 02:30:00 PM Scheduled Provider: Location:[facility] Appointment Type: Medicare Wellness Subsequent Future Scheduled Tests Radiology* NM Myocardial Spect Part 2 11/28/23 * XR Chest 2 Views [facility]28/23 [facility]ments Appointment Date:07/06/2024 10:00:00 AM Scheduled Provider: Location:[facility] Appointment Type:URO Nurse Visit Appointment Date:07/13/2024 01:15:00 PM Scheduled Provider:[facility]ez Degroot MD [facility] App[facility]ment Date:07/31/2024 10:45:00 AM Scheduled Provider:Shahab PATTON MD Location:[facility] Appointment Type:URO Office Visit Appointment Date:05/10/2025 02:30:00 PM Scheduled Provider: Location:[facility] Appointment Type: Medicare Wellness Subsequent Future Scheduled Tests Radiology* NM Myocardial Spect Part 2 11/28/23 * XR Chest 2 Views 11/28/23 [facility] evaluation + Plan note Future Appointments Appointment Date:07/13/2024 01:15:00 PM Scheduled Provider:Cortez Degroot MD Location:[facility] Appointment Type: Open Appointment Date:07/31/2024 10:45:00 AM Scheduled Provider:Shahab PATTON MD Location:[facility] Appointment Type:URO Office Visit Appointment Date:05/10/2025 02:30:00 PM Scheduled Provider: Location:[facility] Appointment Type: Medicare Wellness Subsequent Future Scheduled Tests Radiology* NM Myocardial Spect Part 2 11/28/23 * XR Chest 2 Views 11/28/23 [facility] evaluation + Plan note Future Appointments Appointment Date:08/24/2024 01:00:00 PM Scheduled Provider:Cortez Degroot MD Location:[facility] Appointment Type: Open Appointment Date:08/31/2024 12:15:00 PM Scheduled Provider:Shahab PATTON MD Location:[facility] Appointment Type:URO Office Visit Appointment Date:05/10/2025 02:30:00 PM Scheduled Provider: Location:[facility] Appointment Type: Medicare Wellness Subsequent Future Scheduled Tests Radiology* NM Myocardial Spect Part 2 11/28/23 * XR Chest 2 Views 11/28/23 [facility] evaljzkqfg noteNo assessment information available [facility] Work Phone: [facility] Narrative - Reported* Type Description Date Medical History benign prostatic hypertrophy Medical History DVT Surgical History tonsillectomy Surgical History I & D abscess Hospitalization History See Above [employer] Other Hospital course Narrative No data available for this section [facility] Hospital Discharge instructions No data available for this section [facility] progress note No data available for this section [facility] Summary Purpose Family History Relationship Condition Age at Onset Recorded Date/T alexandre father Unknown mother Unknown sister Unknown Advance Directives No Advanced Directives Records FoundNo Advanced Directives Records FoundNo Advanced Directives Records FoundNo Advanced Directives Records Found Additional Source Comments (unrecognized sect ion and content) No Status Records FoundNo Status Records FoundNo Status Records FoundNo Status Records Found INFORMATION SOURCE (unrecogn ized section and content) DATE CREATED AUTHOR 05/03/2023 [facility] DATE CREATED AUTHOR AUTHOR'S ORGANIZ ATION 05/14/2024 [facility] DATE CREATED AUTHOR AUTHOR'S ORGANIZ ATION 07/10/2024 [facility] DATE CREATED AUTHOR AUTHOR'S ORGANIZ ATION 07/31/2024 [facility] Patient Care team informatio n (unrecognized section and content) Personnel Name: Zane GUERIN, Cortez Erwin Address: Address: [address], [place] [address] Team Status: Inactive Member Role Status Dates Shahab Patotn MD Attending Provider Active St art: July 02, 2024 End: July 02, 2024 REASON FOR VISIT (unrecogniz ed section and content) RASH ON BOTH ARMS Goals (unrecognized section and content) Goals may be documented in a n alternate section FOR RECORDS PERTAINING TO PATIENTS WHO ARE [...] BE BASED ON THE PRIMARY CLINICAL RECORDS. [facility] [employer] provides no warranty or guarantee of the accuracy or completeness of information in this document.
--- NOTE | 2024-08-01 19:21 | ED.MALEGU1 ---
HPI - Male Genitourinary General Chief complaint: Urogenital-Male Stated complaint: PROBLEMS URINATING Time Seen by Provider: 08/01/24 19:16 Source: patient Mode of arrival: walk-in Limitations: no limitations History of Present Illness HPI Narrative: urinary retention. TURP last month. catheter removed on a couple of occasions including yesterday. Today again not able to pass urine. No nausea, vomiting or fever. Related Data Home Medications ?Medication ?Instructions ?Recorded ?Confirmed warfarin 5 mg tablet 5 mg PO .five days a week 07/07/23 08/01/24 oxybutynin chloride 10 mg 10 mg PO DAILY PRN urinary 11/21/23 08/01/24 tablet,extended release 24 hr frequency warfarin 2.5 mg tablet (Jantoven) 2.5 mg PO SUWE@1700 07/02/24 08/01/24 Previous Rx's ?Medication ?Instructions ?Recorded tamsulosin 0.4 mg capsule (Flomax) 0.4 mg PO DAILY #20 caps 07/07/23 Allergies Allergy/AdvReac Type Severity Reaction Status Date / Time No Known Drug Allergies Allergy Verified 08/01/24 18:35 Review of Systems ROS Status of ROS 10 or more systems reviewed and unremarkable except as noted in history and below [facility] Medical History (Updated 08/01/24 @ 19:22 by Andreas Garcia MD) H/O deep venous thrombosis ?Z86.718 - Personal history of other venous thrombosis and embolism (ICD-10) CAD (coronary artery disease) ?I25.10 - Atherosclerotic heart disease of [place] coronary artery without angina pectoris (ICD-10) Elevated PSA ?R97.20 - Elevated prostate specific antigen [PSA] (ICD-10) Former smoker ?Z87.891 - Personal history of nicotine dependence (ICD-10) Anticoagulated ?Z79.01 - nursing home (current) use of anticoagulants (ICD-10) Deep vein thrombosis (2017) ?I82.409 - Acute embolism and thrombosis of unspecified deep veins of unspecified lower extremity (ICD-10) Heartburn ?R12 - Heartburn (ICD-10) Dyspnea on exertion ?R06.09 - Other forms of dyspnea (ICD-10) Urinary retention ?R33.9 - Retention of urine, unspecified (ICD-10) BPH with obstruction/lower urinary tract symptoms ?N40.1 - Benign prostatic hyperplasia with lower urinary tract symptoms (ICD-10) ?N13.8 - Other obstructive and reflux uropathy (ICD-10) Surgical History (Updated 07/03/24 @ 15:14 by Shaikh Rosi MD) History of cardiac cath ?Z98.890 - Other specified postprocedural states (ICD-10) S/P cystoscopy ?Z98.890 - Other specified postprocedural states (ICD-10) History of incision and drainage ?Z98.890 - Other specified postprocedural states (ICD-10) History of tonsillectomy ?Z90.89 - Acquired absence of other organs (ICD-10) Family History (Updated 06/18/24 @ 13:51 by Jadyn Garcia RN) Other Alzheimers disease Leukemia Social History (Updated 06/18/24 @ 13:49 by Jadyn Garcia, LIVE) Within the past year, how often did you have a drink containing alcohol: monthly or less Smoking status: Former smoker Second hand tobacco smoke exposure: No Non-prescribed substance use: denies use Previous occupational history: retired Highest level of school completed/degree received: high school graduate Little interest or pleasure in doing things: not at all Feeling down, depressed, or hopeless: several days Do you think of yourself as: straight/heterosexual Gender Identity: male Exam Constitutional Vital Signs, click to edit/add: Last Vital Signs Temp 98.3 F 08/01/24 18:35 Pulse 86 08/01/24 18:35 Resp 18 08/01/24 18:35 BP 174/100 H 08/01/24 18:35 Pulse Ox 91 L 08/01/24 18:35 O2 Del Method Room Air 08/01/24 18:35 Common normals: no apparent distress, average body habitus, oriented x3, no limitations, healthy appearing, alert and well nourished [facility] Common normals: normocephalic and head/scalp atraumatic Eye Common normals: PERRL and EOMs intact bilaterally Respiratory Common normals: normal respiratory effort, no retractions, no use of accessory muscles and clear to auscultation bilaterally Cardio Common normals: regular rate, regular rhythm, S1 normal heart sound and S2 normal heart sound GI Common normals: Normal to inspection, nondistended, normoactive bowel sounds present, soft to palpation and non-tender Extremity Common normals: normal to inspection Neuro Common normals: oriented x3, CN's II-XII intact bilaterally, moves all extremities and no focal motor deficits Psych Appearance: grossly normal Course Vital Signs Vital signs: Vital Signs Temperature 98.3 F 08/01/24 18:35 Pulse Rate 86 08/01/24 18:35 Respiratory Rate 18 08/01/24 18:35 Blood Pressure 174/100 H 08/01/24 18:35 Pulse Oximetry 91 L 08/01/24 18:35 Oxygen Delivery Method Room Air 08/01/24 18:35 Temperature 98.3 F 08/01/24 18:35 Pulse Rate 86 08/01/24 18:35 Respiratory Rate 18 08/01/24 18:35 Blood Pressure 174/100 H 08/01/24 18:35 Pulse Oximetry 91 L 08/01/24 18:35 Oxygen Delivery Method Room Air 08/01/24 18:35 MDM - Male Genitourinary MDM Narrative Medical decision making narrative: patient presents with urinary retention. Catheter placed by nursing with collection of 600cc of urine. Patient is feeling better and asymptomatic.leg bag placed and patient discharged home to follow up with urology Discharge Plan Discharge Chief Complaint: Urogenital-Male Clinical Impression: Acute urinary retention Patient Disposition: Home, Self-Care Prescriptions / Home Meds: No Action oxybutynin chloride 10 mg tablet extended release 24hr 10 mg PO DAILY PRN (Reason: urinary frequency) warfarin 5 mg tablet 5 mg PO .five days a week Rx Instructions: SAT, , , SAT AND SATURDAY tamsulosin [Flomax] 0.4 mg capsule 0.4 mg PO DAILY Qty: 20 0RF warfarin [Jantoven] 2.5 mg tablet 2.5 mg PO SUWE@1700 Rx Instructions: TWO DAYS A WEEK, SATURDAY AND Print Language: Jamaican Instructions: Urinary Retention in Men (ED) Additional Instructions: follow up with urology next week Referrals: LISA DAVIES [Primary Care Provider] - 1 week
[2024-08-01 19:25] LABS: Bilirubin Urine NEGATIVE (NEGATIVE); Blood Urine MODERATE (NEGATIVE); Clarity Urine CLEAR (CLEAR); Color Urine LT. YELLOW (YELLOW); Glucose Urine UA NEGATIVE (NEGATIVE); Ketones Urine NEGATIVE (NEGATIVE); Leukocyte Esterase Urine MODERATE (NEGATIVE); Nitrite Urine NEGATIVE (NEGATIVE); Protein Urine TRACE mg/dL (NEG/TRACE); Urobilinogen Urine 0.2 EU/dL (0.2-1.0); pH Urine 6.5 (5.0-9.0)
[2024-08-01 19:28] LABS: Urine Microscopic Indicated YES
[2024-08-01 19:31] LABS: Bacteria Urine TRACE #/HPF (NONE SEEN); Cast Seen? NONE SEEN #/LPF (NONE SEEN); Crystals Seen? None Seen #/HPF (None Seen); Mucus Urine NONE SEEN (NONE SEEN); Squamous Epithelial Cell Urine NONE SEEN #/LPF (NONE/RARE); Urine Culture Indicated YES; WBC Urine 20-50 #/HPF (NONE SEEN)
[2024-08-01 19:34] VITALS: BP 128/88; O2SAT 96
== END 2024-08-01 19:42 | disposition home or self-care (01) ==
PROVIDERS: Emergency Provider Internal Medicine; PCP Family Medicine
DX: R33.9 Retention of urine, unspecified (principal); Z87.891 Personal history of nicotine dependence; Z98.890 Other specified postprocedural states
CPT/HCPCS: 51702; 81001; 87086; 87150; 87186; 99284

== ENCOUNTER 2024-08-18 15:43 | Inpatient (IN) | payer MEDICARE, SELFPAY ==
[2024-08-18] VITALS (15 sets, daily range): BP systolic 95–138; BP diastolic 62–87; PULSE 89–116; TEMP 36.8–38.6; O2SAT 87–94; BMI 47.1; BMI 46.8
--- OUTSIDE RECORDS SUMMARY | 2024-08-18 15:51 | XMS_ITS | CCD ---
Author Organization [facility] Care Team Providers Care Numerical Control Lathe Operator Name Role Phone REQUEST, DR NONE LISTED [...] Admitting Unavailable Cortez Degroot Primary Care Physician Beth Joseph Shahab PATTON R Admitting Unavailable PATTON, Shahab R Referring Unavailable PATTON, Shahab Carrasquillo Attending Unavailable ChristAditya castanon Admitting Unavaila ble Mica, Aditya Guillen. Referring Unavaila ble ChristAditya castanon Attending Unavaila ble ChristAditya castanon Admitting Unavaila ble Christkina, Aditya Guillen. Referring Unavaila ble Christkina, Aditya Orta Attending Unavaila ble MD Jacob LOVELL Consulting Unavailable LILIYA, Jacob Tan Consulting Unavailable Jacob LOVELL Consulting Unavailable Cortez Degroot Attending Unavailable Shahab PATTON R Attending Unavailable PATTON, Shahab Carrasquillo Attending Unavailable PATTON, Shahab Carrasquillo Attending Unavailable JENN, Shahab Carrasquillo Attending Unavailable Cortez Degroot Attending Unavailable Cortez Degroot Admitting Unavailable Cortez Degroot Referring Unavailable ChristAditya castanon Consulting Unavaila ble Aditya Nino Consulting Unavaila ble Aditya Nino Consulting Unavaila ble Paul Barbosa Admitting Unavailable Paul Barbosa Attending Unavailable NONE, XXXX Referring Unavailable Paul Barbosa Attending Unavailable Cortez Degroot Referring Unavailable Aditya Nino Attending Unavaila ble Cortez Degroot Referring Unavailable Aditya Nino Attending [...] Patton Attending Provider Shahab Patton Attending Unavailable PattonShahab Admitting Unavailable PATTON, Shahab R Attending Unavailable PATTON, Shahab R Attending Unavailable OrzechRae Attending Unavailable Paul Barbosa Attending Unavailable NONE, XXXX Referring Unavailable Aditya Nino Admitting Unavaila ble Christkina, Aditya Orta Attending Unavaila ble Aditya Nino Referring Unavaila ble Cortez Degroot Admitting Unavailable Shahab PATTON Attending Unavailable Cortez Degroot Attending Unavailable Cortez Degroot Attending Unavailable Cortez Degroot Attending Unavailable Shahab PATTON Attending Unavailable Medications Current Medications Medication Drug Class(es) Dates Sig (Normalized) Sig (Original) cephalexin 500 mg oral capsule (2 sources) Cephalosporin Antibacterial Start: 08-12-2023 take 1 capsule by mouth every eight hours Cephalexin 500 MG 1 capsule Orally tid for 7 days Jul, Active Start: 04-27-2016 take 1 capsule by [facility] daily Keflex 500 MG 1 [...] TID, # 30 tab(s), Refills(s) 3, Pharmacy: [facility]/pharmacy #[id number], 173, cm, 05/20/24 10:19:00 EDT, Height/Length Dosing, 154.2, kg, 05/20/24 10:19:00 EDT, Weight Dosing Start Date: 07/06/24 Status: Ordered Start: 04-14-2024 oxybutynin 5 m g Tab See Instructions, PRN for urinary discomfort, 1 tab po q 6 hrs PRN bladder spasms/leaking around [place], up to TID, # 30 tab(s), Refills(s) 3, Pharmacy: [facility]/pharmacy #[id number], 180, cm, 04/14/24 12:37:00 EDT, Height/Length Dosing, 154.3, kg, 04/14/24 12:37:00 EDT, Weight Dosing Start Date: 04/14/24 Status: Ordered Start: 10-08-2023 oxybutynin 5 m g Tab See Instructions, PRN for urinary discomfort, 1 tab po q 6 hrs PRN bladder spasms/leaking around [place], up to TID, # 30 tab(s), Refills(s) 3, Pharmacy: [facility]/pharmacy #[id number], 180, cm, 10/08/23 12:12:00 EST, [...] CLINIC, # 90 tab(s), Refills(s) 3, Pharmacy: [facility] STORE [id number], 180, cm, 12/30/23 15:09:00 EST, Height/Length Dosing, [...] procedure, # 2 tab(s), Refills(s) 0, Pharmacy: [facility]/pharmacy #[id number], 180, cm, 08/05/23 12:26:00 EDT, [...] Coronary atherosclerosis; 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: [Atherosclerotic heart disease of [place] coronary artery without angina pectoris] Onset: 05-20-2024 [...] Onset: 03-23-2023 Episodic Other aftercare (1 source) senior care (current) use of anticoagulants; 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: [INTERMEDIATE CURRNT USE ANTICOAGULANTS] Onset: 04-24-2023 Episodic Other aftercare (5 sources) Long-term current use of anticoagulant; 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: [equipment coordinator (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) 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 of anticoagulants] Onset: 08-05-2023 Episodic [...] Range Facil ity Ambulatory Visit Summaryon 0 07-31-2024 Ambulatory Visit Summary Ambulatory Visit Summary EUGENIA GIL :1950 Visit Date:07/31/2024 Ambulatory Visit Instructions Your Diagnosis BPH with urinary obstruction Urinary retention Anticoagulated Your Care Team Attending Physician - JENN GUERIN, Shahab Carrasquillo Primary Care Physician - Zane GUERIN, Cortez Erwin This Is Your Medications List Contact prescribing physician if questions or concerns oxybutynin (oxybutynin 5 mg Tab) tamsulosin (tamsulosin 0.4 mg Cap) warfarin (warfarin 5 mg Tab) Procedures Performed TURP - Transurethral resection of prostate (07/02/2024), Catheterization of left heart (04/17/2024), Tonsillectomy. Discharge Vitals Temperature (Temporal Artery) 37 ?C Heart Rate (Peripheral) 77 Respiratory Rate 16 Blood Pressure 136/85 Height 180 cm Height 71 in Weight 154 kg Weight 338.8 lb BMI 47.53 What to do next Scheduled Follow-Up Appointments Saturday 1:00 PM EDT With: Zane GUERIN, Cortez Erwin Where: [address] [address]- Saturday 2:30 PM EDT With: Where: [address] [address]- You Need to Schedule the Following Appointments Follow Up with JENN GUERIN, ALYSSA Nicholas When: Where: [facility] [address], [place] [address]- [phone] Medications What How Much When Instructions Unchanged oxybutynin (oxybutynin 5 mg Tab) See instructions 1 tab po q 6 hrs PRN bladder spasms, up to TID Contact prescribing physician if questions or concerns Unchanged tamsulosin (tamsulosin 0.4 mg Cap) 1 Capsules Contact prescribing physician if questions or concerns [...] you for choosing us for your care. Education Materials Transurethral Resection of the Prostate, Care After The following information offers guidance on how to care for yourself after your procedure. Your health care provider may also give you more specific instructions. If you have problems or questions, contact your health care provider. What can I expect after the procedure? After the procedure, it is common to have: ? Mild pain in your lower abdomen. ? Soreness or mild discomfort in your penis or when you urinate. This is from having the catheter inserted during the procedure. ? A sudden urge to urinate (urgency). ? A need to urinate often. ? A small amount of blood in your urine. You may notice some small blood clots in your urine. These are normal. Follow these instructions at home: Medicines ? Take oapt-jln-chafqmt and prescription medicines only as told by your health care provider. ? If you were prescribed an antibiotic medicine, take it as told by your health care provider. Do not stop taking the antibiotic even if you start to feel better. Activity ? Rest as told by your health care provider. ? Avoid sitting for a long time without moving. Get up to take short walks every 1?2 hours. This is important to improve blood flow and breathing. Ask for help if you feel weak or unsteady. You may increase your physical activity gradually as you start to feel better. ? Do not drive or operate machinery until your health care provider says that it is safe. ? Do not ride in a car for long periods of time, or as told by your health care provider. ? Avoid intense physical activity for as long as told by your health care provider. ? Do not lift anything that is heavier than 10 lb (4.5 kg), or the limit that you are told, until your health care provider says that it is safe. ? Do not have sex until your health care provider approves. ? Return to your normal activities as told by your health care provider. Ask your health care provider what activities are safe for you. Preventing constipation You may need to take these actions to prevent or treat constipation: ? Drink enough fluid to keep your urine pale yellow. ? Take zeif-kjs-dcodrqw or prescription medicines. ? Eat foods that are high in fiber, such as beans, whole grains, and fresh fruits and vegeta (more content not included)... Normal [facility] Urology Office/Clinic Noteon 07-31-2024 Urology Office/Clinic Note Urology Office/Clinic Note Chief Complaint Post op TURP HPI Staff 73 yr old male here for PO TURP, rev PATH Previous DX: urinary retention, anticoagulated and former smoker. TURP done 07/02/24 Pt had his catheter removed on 07/06/24 but was unable to void so he returned later that same day and the catheter was replaced. Incomplete bladder emptying: pt has an indwelling catheter Hematuria: denies Leaking: pt states he has been having some leakage around the catheter Abdominal pain: denies Flank pain: pt states that he has had some discomfort on the right History of Present Illness Tests reviewed: reviewed operative note, path report I have reviewed the previous health record information and history for this patient from Dr. Patton and Rae Luis NP. I have reviewed and verified the staff HPI to be accurate for this encounter. Review of Systems PHQ Score Initial Depression Screen Score: 0 SCORE ROS - Provider Constitutional: denies weight loss, [...] HPI. Physical Exam Vitals & Measurements T: 37 ?C(Temporal Artery) HR: 77(Peripheral) RR: 16 BP: 136/85 HT: 71 in HT: 180 cm WT: 154 kg WT: 338.8 lb BMI: 47.53 General Appearance: alert, no distress, well nourished, well developed male. Assessment/Plan 1. BPH with urinary obstruction (N40.1: Benign prostatic hyperplasia with lower urinary tract symptoms) S/p Cysto 09/03/23 - prostatic urethra is obstructed, median lobe. S/p TURP 07/02/24 - 28 grams removed. Path neg for malignancy. Taking Tamsulosin 0.4mg bid. Denies any PO complications with exception of a failed voiding trial. The pathology report was reviewed with the patient in detail today. There is no evidence of malignancy and no further evaluation of the tissue removed is planned. All questions were answered and the report discussed in terms that the patient could understand. 2. Urinary retention (R33.9: Retention of urine, unspecified) Pt presented to [facility] ER 07/07/23 for retention. Pt [...] -18Fr catheter was placed at that time [1] Catheter removed 07/06/24 after TURP, was unable to void after 6hrs so had catheter replaced that same day. Pt still has indwelling catheter today. Discussed removal. Advised pt if he is unable to void again, may need to consider CIC. Pt unsure if he would be able to do CIC given his had shakes with cursive writing. Alternative option would be catheter replacement x1 month with another voiding trial. -Catheter to be removed IO today -F/u in 1 month 3. 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 [2] Follow-up With When Contact Information JENN GUERIN, Shahab Carrasquillo, [facility] [address], [facility] [place] [address]- [phone] Additional Instructions: 1 month Patient Education Transurethral Resection of the Prostate, Care After Elizabeth Bro, personally scribed for Dr. Patton on 07/31/2024 11:39:24. . Documentation recorded by the Elizabeth mendoza, accurately reflects the services(s) I performed and decisions made by me. Authenticated by Dr. Patton on 07/31/2024 11:41:40. Problem List/Past Medical History Ongoing Abnormal EKG Acute hypoxic respiratory failure Anticoagulated Bladder spasm BPH with urinary obstruction Elevated PSA Former smoker Hospital discharge follow-up Hx of deep venous thrombosis Knee pain SOB (shortness of breath) on exertion Urinary retention Historical No qualifying data Procedure/Surgical History TURP - Transurethral resection of prostate (07/02/2024), Catheterization of left heart (04/17/2024), Tonsillectomy. Medications oxybutynin 5 mg Tab, See Instructions, PRN, 3 refills tamsulosin 0.4 mg Cap, 0.4 mg= 1 cap(s) warfarin 5 mg Tab, See Instructions Allergies No Known Allergies Social History Alcohol - Denies Alcohol Use, 04/17/2024 Current, Beer, 1-2 times per year, 1 drinks/episode average. 2.00 drinks/episode ma (more content not included)... Normal [facility] Comment on above: Result Comment: Elec tronically Signed By: Shahab PATTON MD\.br\Date and Time Signed: 07/31/24 11:41 EDT\.br\Electronically Co-Signed By: Elizabeth Greenberg\.br\Date and Time Co-Signed: 07/31/24 11:39 EDT [facility] 07-28-20 [facility] Hospital Case Information Case Priority: None Programs: -- Referral Source: Chief Lock Operator Referral Reason: Care coordination Case Type: Transition [...] see TCM note. Created By: Titus Tamayo [facility] 07-20-20 [facility] Case Information Case Priority: None Programs: -- Referral Source: Chief Lock Operator Referral Reason: Care coordination Case Type: Transition Care Management Risk Score: -- Case Status: Enrolled (July 06, 2024) Date Assigned: July 06, 2024 Assigned By: Titus Tamayo Date Enrolled: July 06, 2024 Assigned Primary Personnel: Titus Tamayo Assigned Secondary Personnel: -- Case Physician: Cortez Degroot MD Problems Ongoing Abnormal EKG Acute hypoxic respiratory failure [...] see TCM note. Created By: Titus Tamayo [facility] Ambulatory Visit Summaryon 0 07-13-2024 Ambulatory Visit Summary Ambulatory Visit Summary EUGENIA GIL :1950 Visit Date:07/13/2024 Ambulatory Visit Instructions Your Diagnosis Hospital discharge follow-up Acute hypoxic respiratory failure Hx of deep venous thrombosis BPH with urinary obstruction Other obstructive and reflux uropathy Your Care Team Attending Physician - Cortez Degroot MD Primary Care Physician - Cortez Degroot MD. This Is Your Medications List Contact prescribing [...] Shahab PATTON MD Where: [facility] [address] [address]- Saturday 1:00 PM EDT With: Zane GUERIN, Cortez Erwin Where: [address] [address]- Saturday 2:30 PM EDT With: Where: [address] [address]- Medications What How Much When Instructions Unchanged [...] for choosing us for your care. Normal [facility] Family Medicine Office/Clini c Noteon 07-13-2024 Family Medicine Office/Clinic Note Family Medicine Office/Clinic Note HPI Staff Eugenia is a 73 year old male presenting for [facility] follow up (per Titus) TCM: Hospital: [facility] Admission date: 07/02/24 Discharge date: 07/03/24 the [...] with hypoxia) Will order PFTs to [facility]. Will look for COPD. This is resolved [...] Father. Immunizations Vaccine Date Status SARS-CoV-2 (COVID-19) [id number] 12/13/2022 Recorded SARS-CoV-2 (COVID-19) mRNA BNT-162b2 vax 10/30/2021 Recorded SARS-CoV-2 (COVID-19) mRNA BNT-162b2 vax 02/14/2021 Recorded SARS-CoV-2 (COVID-19) mRNA BNT-162b2 vax 01/23/[address] [facility] Comment on above: Result Comment: Elec [...] Follow-Up Appointments Saturday 1:15 PM EDT With: Zane GUERIN, Cortez Erwin Where: [address] [address]- Saturday 10:45 AM EDT With: Shahab PATTON MD Where: [facility] [address] [place] [address]- Saturday 2:30 PM EDT With: Where: [address] [address]- Medications What How Much When Instructions Unchanged [...] for choosing us for your care. Normal [facility] 07-06-20 [facility] Case Information Case Priority: None Programs: -- Referral Source: Chief Lock Operator Referral Reason: Care coordination Case Type: Transition Care Management Risk Score: -- Case Status: Enrolled (July 06, 2024) Date Assigned: July 06, 2024 Assigned By: Titus Tamayo Date Enrolled: July 06, 2024 Assigned Primary Personnel: Titus Tamayo Assigned Secondary Personnel: -- Case Physician: Cortez Degroot MD Problems Ongoing Abnormal EKG Anticoagulated Bladder spasm BPH [...] Care Plan Progress Note Admit Date: 07/02/24 [facility] Date of Discharge: 07/03/24 Follow-up appointment [...] rec will need to be completed at [facility] d/t PCP out of office). Patient states [...] patient reach out to med management at [facility] and see if sooner INR needed or warfarin dose adjustment d/t ATB, he verbalized understanding. Patient is eating and [...] reconciliation will need to be completed at ), uro., Dr. Patton 07/31 at 1045. CN explained TCM program and gave CN contact number. Patient denies any further questions or concerns. Communication Events Date: July 06, 2024 Method: Phone call Type: Outbound Duration (min): 18 Outcome: Case discussion Contact Type: Patient Contact Name: EUGENIA GIL Notes: TCM#1- see TCM note. Created By: Titus Tamayo [facility] Pathology Request for Lab Co rpon 07-02-2024 Pathology Request for Lab [place] Normal [facility] Comment on above: Order Comment: PATHO LOGY PROSTATE SPECIMEN Result Comment: See report. Scanned copy available in EMR. PERFORMED BY: [place] [address] PATHOLOGIST LACE PAPER MACHINE OPERATOR SHARI MARTINEZ M.D. Performed By: #### P ATH TO [facility] #### [place] [id number] [facility] Ambulatory Visit Summaryon 0 06-09-2024 Ambulatory Visit Summary Ambulatory Visit Summary EUGENIA GIL :1950 Visit Date:06/09/2024 Ambulatory Visit Instructions Your Diagnosis Urinary retention Your Care Team Attending Physician - ELEAZAR Luis APRN, Rae Schmidt Primary Care Physician - Zane GUERIN, Cortez Erwin This Is Your Medications List oxybutynin (oxybutynin 5 mg Tab) tamsulosin (tamsulosin 0.4 mg Cap) warfarin (warfarin 5 mg Tab) Procedures Performed Catheterization of left heart (04/17/2024), Tonsillectomy. What to do next Scheduled Follow-Up Appointments Saturday 10:00 AM EDT With: Where: [facility] Invalid Interpretation Code [address] [place] [address]- \.br\ Saturday 10:45 AM EDT \.br\ With: JENN GUERIN, Shahab Carrasquillo\.br\ Where: [facility] Consent for Treatmenton 04-26 Consent for Treatment [id number] .00TIFF Normal [facility] Formson 05-20-2024 Forms [id number]# 1.00TIFF [facility] Office/Cl inic Noteon 05-20-2024 [...] no rash or concerning lesions Cardiac Diagnostics [facility] with Dr. Nino on 04/17/2024: LMT: Short [...] alternate imaging modality. Assessment/Plan 1. CAD in [place] artery (I25.10: Atherosclerotic heart disease of [place] coronary artery without angina pectoris) Patient did [...] and clif (more content not included)... Normal [facility] Comment on above: Result Comment: Elec tronically Signed By: Paul Barbosa PA-C\Date and Time Signed: 05/20/24 10:42 EDT Physician Orderon 05-20-2024 Physician Order [id number] 1.00TIFF [facility] Coding Queryon 05-15-2024 Coding Query - [...] EDT Subject: RE: Coding Query Caller Name: EUGENIA GIL Mindy; Caller Number: Chris , It was not done, I put an addendum [facility] Coding Summary.on 05-15-2024 Coding Summary. [id number]+PG h lYWQ+HJ1UBNKqI88ayTNi lQ9yK0WKUXgOUqljOSOSK XmZGkSxmiNjOW7vmQWtJV Ju IC8+KT2rCGCwTeqmdANup 7D6ePS1S46tfb6oKTnozD F9BTTjNeCqiklbz7ckcYu 6IDcuNmluOyBt VUOryY24SYY6zP09Sk01u FXlbECqx1vpmWk4VgZsZS QsJTM0zMckCCvag6AqCLW jR72ukEPpy8C9 SOZbnQwiiEAbAnIllHK7h M4aCHydnrtjc3pvudfdMx v0ux69lITys5N6mTH0O2Q zfoC1OQPsaZZh WkvraOBGvV8ysnxqs8zao yzcRmEbBHPfELj1XQn7DO CtqMyxIkDwJT29OTR8QLV ygyQuE4CsYZEh cFjvWnZ2r7Y5To5SY6QKC rtiV4XAOJBSATqhwNE+PC 08bb78Z3TjSjwhSyc5HLF cRMB7dQW1nY9z QBSvXCjxr8L4jOY4C4Cwb gDact8ut2mdHCSfTMpiK8 3mkBLju5N2XDBnzEJ4WJG roMepZqFlsA35 Oyc+XPTyyQvnc0LuMkvvq 6jiz3qgkTi4VthtVNJaoy SkyZlwDYA7h3GzQw1kBFA hqAQ6zQX7fC3q KjFgPnG6HWnrA058XrNws AYqBjihM33aC7BweMP+PH HhWkz3WTLecUoyOR5hU9T hZGRpbmctbGVm hTygNG4sCHPjjyzqLEXdh Z1qBVTaX7s2EnZsXnV3RG stL2YvSLUxiozbIf77tL7 lQlSrZxH9XHio D9XemvT6WXLfdJJsCPcdI UT3X83qm4R6FOCnYNDzDR L3wQV6xI1kfPbfygkidAM mdDsgdmVydGlj KEmjXHusH296CUJcyGzaC kNvZGluZyBEYXRlOiAgMD YvMjEvMjAyNDwvdGQ+PHR fJBQ3jIpwKWKx gFDxSTmaMy9zsOdlaTeeB D8hAIXwdxeuDHCbfT3fJU DrxYQvcOigQF8sKTZftgc za704WbZbMMA6 EVJopUHgA5JmfZ1bJtWbU BXiWWCaH2UvcQTqRUkvN1 54VKozOaN8TSKgjeGwR2M sLWFsaWduOiB0 a7F5Dm0Ml5NaujgxS4Dmb ORpEgUxEpmiTRe9J7RxBl wvdHI+CQ99WVYnXL20KXr 4UOT1qCueFSii ASFqW1CrtI6kVmNzXYGuI GRkOyc+PHRhYmxlIHdpZH RoPScxMDAlJyBzdHlsZT0 aKk1vMMFzONYt wKcxwTCjTyUry2omABNoN MzqJT1qrYwvM6AjsZR2KR Mgt6g2Cc03J41kR7WpnBB +WOPsoMU4wGQ3 aV6yLuCbGnI5HZsjV149M cXjcBSfMciwx0ssm5zjvE g1ZgZ8YJVpddZwsFpdHUD 6j7RaWt33P11p IHdpZHRoPSIxNSUiIHZhb Vsrto2lbM3pXe5+PGNvbC G2uPJ6nX5oCmLzBwN7MEf sO331InZrbBYp Zepjy6rrb5uuuHa8WhToM NLlrvEkpXftGOU3q9TxIj 50E4AohQhvq1XsOfy7ei6 4bJBfi7B4tVR5 D9WtXSEjvavyxLLirZscF V8jWDLmehckCDMmpE8gTE ZpS9g7AwPjPaP6MWfpZ5C srqD7SMWgvAOw CWZwqHQNvR1uweqij2kwl lleFvDkQHBgAIv2HCi1TW VfwCpxBgQbQNW5KoP2PLW 3iMZjuU2viRrs esspeO8xLsd+XVU0tFFio WPUZO3lZlvntXD+PHRkIH K2eRnsKByjYNXtqK6mFRU sH8i7YaOmFhL0 RWtxP3IghkF6MEYwgZLhX SLumVCBhM9thqets0zscv feAtPzBJWvKCk3RVe3NWM saWduOiBsZWZ0 ZfL9QAY2lSMbxN5xvCjrb gdudY4wZtp+QmlydGggRG Y3UCl6A7DbJoe6IDLgySc uTO2bnAGoFUin Vd0trKysdEvdCS4qRRYna hlvg427DiWje1lbCRWjgJ FyYQxaMHQ1F93fs3V3CWR zAVJiQUP0pQJ3 kZ0paNkvmcjitHGlfQobc yGlxBvrOCyyICqnR472JZ TbqNtdYvLfBNv7M5NxYfq 8IAVwxVthPZ4a tLThRMphOt5xwHygaTyjP V3yOXHztmaiu756LhOkj1 woTHKvhSZpBIfaQKL7J29 os7S9OMEvRRLj ZZF3hXG7uC1bdOioqburc GVmdDsgdmVydGljYWwtYW acP955YUVfiZfjAiJfiAj 3D5LnGzl4EMJw vGlgLS0zbJCoKXspQa0iw OwpkRysMY7gOIBagatxn1 40CzJxw2kfPGDqsDYlIRi mUOG6G33vy9S9 NADaYJMhRFI5nQB8aX2ot GlnbjogbGVmdDsgdmVydG cfNIevSLtnS677STYouVd nPlBhdGllbnQg GMcxVBl9T9ToZicmdRV+P C00BWLkGD30mGHdjIJjn8 pgmQf2CvFtTNZgPJT7aUj dTJvbh5CfSSOr I08vpLBnr5H5UOUqcXano PGdRmNqrIN9fS9pQMxwgn osf6zhohuyNxcvc0uzhy9 7pI41F39eCUpo ZHRoPSIzMCUiIHZhbGlnb q1zvW4bRh3+CXClsOY7oX Q1pS0xEKFiAcP4FLelI19 9InRvcCIvPjxj i1bdp8apaPj9RaA5SSCiq oDjlUbdFHT6z5GcXr68M9 9sIHdpZHRoPSIyMCUiIHZ eqOthbv9ntT5s Ii8+ETDmpHK4eNC7uH4uO jJuYgQ3JGnsG660JnNsaV OdRgstD01xB8RamCS+PHR xUag3EZVtyZkn NL1slUOwLMpoAc8rOMI9O fPzPlJlVZdeH3TsKYQkxj bblvxsfBY5KJRwEHMifZ8 6Fj6rlCrxBRYk wZFSyW9pmeqdz8pjdmlfS kShBZXoOTs6GBs6EHZqwD qgYcBeTQT1TsA6NRC9sWZ gdL3ojDpbuqfm iB5kG5PaEWHstdhkDg46a E8iRyUpLnR8SYpuTht+Sk 9ITlNPTiwgSkFNRVMgRDw vdGQ+PHRkIHN0 hTtqTZgiMOTgiL6yZTPbB 7j2IsAdRhH9DAbuU8LsVC ZpjuttVo69rE4oIdEyPwZ 9DXhqH4YdyrO4 UPAcxHCyHPctBKE1K90ea 1J2WAMaOTUiMGP2yDG2jB 1hbGlnbjogbGVmdDsgdmV ydGljYWwtYWxp A650XDBfxTfdJnUwClY8F lO4FJE0D9LfBbj9IWKecF wwVZ5otLGsUDutMf0wiYy ceTwtEN7fQHUi elboKDYbzV2tNMCdtKErl TslRC8sCMXhmjidq016Nd UaTBY9EQYylGThE9ArxL3 yOiAjMDAwMDAw B4DloMPcFBmrQ491ZLraM rR4XMLuqsXcM0RpEFGduB kvYaS8a7U2Xr91CORBOYM yczwvdGQ+PHRk WXR6nGzaPEdpURJwkG0fS HYoM5v3WlInAhN9TMdsJ8 EwCSNkpdnjBz16fG3dYtN iZyM7TVqeM8Lm cwJ9DLUgaKGyYLgpOGQ0A 08id8U7CSQrDRSpETC3nN G1wN5dhFxjlufwrWYwnHm gdmVydGljYWwt CRdeB298MXEgrVxuYg6xk RS0T5LsKzk3ILDxjMuiLI 9bxIZcWFfwVe0hoIxzcFp vET9yVQTxyzqq KQBnkM1zLELbeDExsGnnL W0xOFGukwqvx041HyPiHY Z1LCTvbQXyC4UysF6qHkD jOPWdWZSlA8Qe tNItFAyaS765FKtyVcT4P KVsgiTdT1BqGOPcyBldLz W2j0U0Eh5XeJR1eQZ4l2Z 3Y2JkdDGxGGH4 FGM0ecgxlci5N8HvSnjpt HI+SQ68XJBeME17sOMzmV Ugv7aagRb2PzKqQFBkAPQ 4pRxrMUegw1Fe MGIoE35maEVrx7F5PKRnc SaucMKjCnDytNU8tI0cQU fipyqhj6zcdlgcJcguh7a exh39lM21W25m IHdpZHRoPSIzMCUiIHZhb Jekkm9weA4jWw3+PGNvbC J9iLS0uE1iCnLlIoU6BSi kD533MxYzzRKo Qqyhw2cgt0xbeZz6IlKcJ BEgrjAkxHywRAN6q3TuRx 64U42cACnmKMOcDRIeZDG gURNkiHwcdh2c cN0aVf4+PJ6rz1wnyo30e D48dHI+ENPvJKA2rAtyTP tvOXOnpZ0uXPboEsI9LTW fTtCdcF02aNHo GKdbKz8xjWoqdKeaDV8fC VKredbpj094UuUvu6ifUJ WwcKCiRPhsJGN1X49iw7N 3BJSzNBSvGDW4 jFU1aK1goChcewdbfFCfh DsgdmVydGljYWwtYWxpZ2 80KAXqhNpdOmXwzVTpI5b pdzSVDK5jSsnl dGQ+HIMoVBI0wEiyUAewM MUdsF4uOEEhO1a3BmYuNf A8DJxqQ5ZfztT6ARXjfBX lWQAyyWBStG1c jsrkb6peyextJvWaIEEjF Oe6MCc3FHWwmRarNzGpVC L3AzG8EXN9pPAbeU6zlPf fqxsroB2nCyu+ RklOOjwvdGQ+TQMmFSM8t DudHDqjGRVsqK9lTRKeW1 y2ZiJtOrA1RHtvG6BtizB 6IGJvbGQgMTBw kEKXzX2uqcevd7mnxabmS bAdSCNlZAy4YSd2LBBvnJ kpIlDbHPW5LaS2RXF6zYG dfB1wiDforbch hX5kDdz+TVJOOjwvdGQ+P IBcCBW9dAuzNMtySVJjtR 4kBANmY8n7LgRkHmS3HOn kX8HvpzV9PIOj zGQhKXEfcQNYpU0lsdvjp 0jdsikdXmTfTWQwIWl3RK k1LMCceItxKwQtNWE0HqJ 3TEX6vYMrkD6m rLpsjriqbN1dCvd+UGF5Z XE9BS69MI15B6MpTjgymI FibGU+PHRhYmxlIHdpZHR oPScxMDAlJyBz yBpyLM7lWc0lX (more content not included)... Normal [facility] Operative Reporton 4 Operative Report Indication [...] consent the patient was brought to the [facility] where sterile prep and drape were administered in usual fashion. Anesthesia was obtained in the right wrist with lidocaine after administration of conscious sedation. A 5/6 slender Terumo sheath was placed in the right radial artery without complication. Nitroglycerin and nicardipine were given via the sheath and heparin was given intravenously. A 5 Barbadian JACKE catheter was advanced and selectively engaged [...] inaccurate, left ventriculography was not done. Normal [facility] Comment on above: Result Comment: Elec tronically Signed By: Mica GUERIN, Aditya Orta\.br\Date and Time Signed: 05/15/24 10:01 EDT Ambulatory Visit Summaryon 0 6-18-2024 Ambulatory Visit Summary EUGENIA GIL :1950 Visit [...] APRN, Aurora X Where: [facility] Invalid Interpretation Code [address] [place] [address]- \.br\ Saturday 2:30 PM EDT \.br\ With:\.br\ Where: [facility] Family Medicine Office/Clini c Noteon 05-12-2024 [...] for MERS/COVID-19 : N/A Akua Metz LPN 05/11/2024 12:50 EDT Medicare/Medicaid Summary Height/Length Measured [...] SpO2 : 91 % Akua Metz LPN - 05/11/2024 13:00 EDT Chief Complaint : Medicare Wellness Visit Patient Counseled : Nutrition, Physical activity, Elevated BMI Blood Pressure Location : Right arm Blood Pressure Position : Sitting O2 Sat Resting/Exertion Alpha : Resting Pain Present : No actual or suspected pain Akua Metz LPN - 05/11/2024 12:50 EDT Hearing and Vision Screening FT Vision Screen Comments : Wears corrective lenses, goes to [facility] for eye exams. Akua Metz LPN Barry 05/11/2024 13:00 EDT FT Whisper Test Comments : No deficits noted. Akua Metz LPN Barry 05/11/2024 12:50 EDT Advance Directive FT Patient Wishes to Receive Further Information on Advance Directives : Yes Organ Donation Consent : No Akua Metz LPN - 05/11/2024 13:00 EDT Advance Directive : No [...] emotional health limit social act? : Moderately Akua Metz LPN - 05/11/2024 13:00 EDT [facility] (more content not included)... [facility] Comment on above: Result Comment: Elec tronically Signed By: Cortez Degroot MD\.br\Date and Time Signed: 05/12/24 12:44 EDT\.br\Electronically Co-Signed By: Akua Metz LPN\.br\Date and Time Co-Signed: 05/11/24 14:08 EDT Lab Reportson 05-12-2024 Lab Reports [id number]#1 .00TIFF [facility] Screenson 05-12-2024 Screens [id number]#1. 00TIFF [facility] Ambulatory Visit Summaryon 0 05-11-2024 Ambulatory Visit Summary EUGENIA GIL :1950 Visit Date:05/11/2024 Ambulatory Visit Instructions Your Diagnosis Hx of deep venous thrombosis SOB (shortness of breath) on exertion Your Care Team Attending Physician - Cortez Degroot MD Primary Care Physician - oCrtez Degroot MD This Is Your Medications List oxybutynin (oxybutynin 5 mg Tab) tamsulosin (tamsulosin 0.4 mg Cap) warfarin (warfarin 5 mg Tab) Procedures Performed Catheterization of left heart (04/17/2024), Tonsillectomy. What to do next Scheduled Follow-Up Appointments Saturday 1:00 PM EDT With: Where: [facility] Invalid Interpretation Code [address] [place] [address]- \.br\ Saturday 2:30 PM EDT \.br\ With:\.br\ Where: [facility] Ambulatory Visit Summary EUGENIA GIL :1950 [...] PM EDT With: Where: [facility] Invalid Interpretation Code [address] [place] [address]- \.br\ Saturday 2:30 PM EDT \.br\ With:\.br\ Where: [facility] Family Medicine Office/Clini c Noteon 05-11-2024 [...] Father. Immunizations Vaccine Date Status SARS-CoV-2 (COVID-19) mRNAMUL.ORD![id number] 12/13/2022 Recorded SARS-CoV-2 (COVID-19) mRNA BNT-162b2 vax 10/30/2021 Recorded SARS-CoV-2 (COVID-19) mRNA BNT-162b2 vax 02/14/2021 Recorded SARS-CoV-2 (COVID-19) mRNA BNT-162b2 vax 01/23/[address] [facility] Comment on above: Result Comment: Elec [...] provider. Document Revised: 09/28/2021 Document Reviewed: 09/28/2021 [employer] Patient Education ? 2022 [employer]. Oncology Lung Cancer Screening A lung cancer screening is a test that checks for lung cancer when there are no symptoms or history of that disease. The s (more content not included)... Normal [facility] Cardiovascular Reporton 0 Cardiovascular Report [id number]# 2.00TIFF [facility] Consent for Procedure/Surger yon 04-21-2024 Consent for Procedure/Surgery [id number] #1.00TIFF [facility] Discharge Instructionson Discharge Instructions [id number] #1.00TIFF [facility] COAGULATIONOrdered By: Jered Perla on 04-17-2024 aPTT Coag (PPP) [Time] 35.1 s Normal 25.1 - 36.5 second(s) [facility] Auto Coag Comment on above: Interpretive Data: [...] the same coagulation reagent and instrumentation as [facility]. Currently there are no coagulation studies available worldwide for children to 14 days, and no normal ranges. Heparin therapeutic range (represented by Anti-Factor Xa activity of 0.2 - 0.4 U/mL) corresponds to PTT of 56.6 - 109.0 sec. INR Coag (PPP) [Relative time] 1.04 {INR} Invalid Interpretation Code [facility] Auto Coag Comment on above: Interpretive Data: I NR results are specifically intended to assess patients stabilized on long-term Anticoagulation therapy suggested INR s Less Intensive Anticoagulation 2.0 3.0 Conventional Range 3.0 4.5 PT Coag (PPP) [Time] 11.7 s Normal 9.4 - 1 2.5 second(s) [facility] Auto Coag Comment on above: Interpretive Data: [...] the same coagulation reagent and instrumentation as [facility]. Currently there are no coagulation studies available worldwide for children to 14 days, and no normal ranges. Consent for Treatmenton 03-26 Consent for Treatment [id number]#1 .00TIFF Normal [facility] Inpatient Clinical Summaryon 04-17-2024 Inpatient Clinical Summary [address] [address] Clinical Summary Person Information: Name: EUGENIA GIL Age: 73 Years : 1950 Sex: Male PCP: Cortez Degroot MD Marital Status: Single Race: White Ethnicity: Non- or Language: Brazilian Visit Id: Visit Reason: R07.9 R06.09 R06.02 Z01.818 Speciality: Acuity: Enc Type: Ambulatory/Same Day Surgery Med Service: Cardiovascular Arrival: 04/17/2024 06:57:58 Discharge: Dispo Type: Address: [address] [place] [address] [phone] Provider Notes: Diagnosis: Problems Active Knee pain [...] Follow up: With: Address: When: Paul Barbosa [address] [place] [address] [phone] Business (1) 05/20/2024 9:45 AM Type Location Start Finish State FM Medicare Wellness Subsequent [facility] [place] 05/11/2024 1:00 PM 05/11/2024 2:00 PM Confirmed FM Open [facility] [place] 05/11/2024 2:00 PM 05/11/2024 2:15 PM Confirmed URO Nurse Visit [facility] [place] 05/12/2024 1:00 PM 05/12/2024 1:15 PM Confirmed Cardiology Follow Up (FT) [facility] 05/20/2024 9:45 AM 05/20/2024 10:00 AM Confirmed Patient Education Information: Cardiovascular Discharge Instructions - Revised 11/16/15 (CUSTOM) [facility] Inpatient Clinical Summary [place] [address] Clinical Summary Person Information: Name: EUGENIA GIL Age: 73 Years : 1950 Sex: Male PCP: Cortez Degroot MD Marital Status: Single Race: White Ethnicity: Non- or Language: Brazilian Visit Id: Visit Reason: R07.9 R06.09 R06.02 Z01.818 Speciality: Acuity: Enc Type: Ambulatory/Same Day Surgery Med Service: Cardiovascular Arrival: 04/17/2024 06:57:58 Discharge: Dispo Type: Address: [address] [place] [phone] Provider Notes: Diagnosis: Problems Active Knee pain [...] Start Finish State FM Medicare Wellness Subsequent [facility] [place] 05/11/2024 1:00 PM 05/11/2024 2:00 PM Confirmed FM Open [facility] FM [place] 05/11/2024 2:00 PM 05/11/2024 2:15 PM Confirmed URO Nurse Visit [facility] [place] 05/12/2024 1:00 PM 05/12/2024 1:15 PM Confirmed Patient Education Information: Cardiovascular Discharge Instructions - Revised 11/16/15 (CUSTOM) [facility] Inpatient Patient Summaryon 04-17-2024 Inpatient Patient Summary [address] [address] Patient Discharge Instructions PERSON INFORMATION Name: EUGENIA [...] Follow up: With: Address: When: Paul Barbosa [address] [place] [address] [phone] Business (1) 05/20/2024 9:45 AM In the event that this physician does not participate in your insurance network, please consult with your insurance company to find a nearby participating provider. Type Location Start Finish State FM Medicare Wellness Subsequent [facility] 05/11/2024 1:00 PM 05/11/2024 2:00 PM Confirmed FM Open [facility] [place] 05/11/2024 2:00 PM 05/11/2024 2:15 PM Confirmed URO Nurse Visit [facility] [place] 05/12/2024 1:00 PM 05/12/2024 1:15 PM Confirmed [...] IRASEMA Day Comment: PATIENT EDUCATION INFORMATION Instructions: [place], [place] DISCHARGE INSTRUCTIONS Diet: ? Resume pre-procedure [...] smoking f (more content not included)... Normal [facility] Inpatient Patient Summary [address] [address] Patient Discharge Instructions PERSON INFORMATION [...] a nearby participating provider. Type Location Start [facility] State Medicare Wellness Subsequent [facility] 05/11/2024 1:00 PM 05/11/2024 2:[address] FM Open [facility] 05/11/2024 2:00 PM 05/11/2024 2:15 PM Confirmed URO Nurse Visit [facility] 05/12/2024 1:00 PM 05/12/2024 1:15 PM [...] MEDICATION MANAGEMENT CLINIC. Refills: 3. Pharmacy Information: [facility] Barb Comment: PATIENT EDUCATION INFORMATION Instructions: [place], [place] DISCHARGE INSTRUCTIONS Diet: ? Resume pre-procedure [...] you are interested in smoking cessation, contact [facility] at [phone], ext. [phone]. ? In the event you are unable to reach your physician, please (more content not included)... Normal [facility] PT & PTTon 04-17-2024 aPTT Coag (PPP) [Time] 35.1 second(s) Normal 25.1-36.5 [facility] Comment on above: Order Comment: if [...] ranges were obtained from a study by robel Wise prepared from 1437 samples obtained at 7 different centers using the same coagulation reagent and instrumentation as [facility]. Currently there are no coagulation studies available worldwide for children to 14 days, and no normal ranges. Heparin therapeutic range (represented by Anti-Factor Xa activity of 0.2 - 0.4 U/mL) corresponds to PTT of 56.6 - 109.0 sec. Performed By: #### 1 [id number] ####[facility] [address] [place] [address] INR Coag (PPP) [Relative time] 1.04 {INR} Invalid Interpretation Code [facility] Comment on above: Order Comment: if on Coumadin. Draw day of procedure and notify MD if abnormal Result Comment: INR results are specifically intended to assess patients stabilized on long-term Anticoagulation therapy suggested INR?s ?Less Intensive Anticoagulation? 2.0 ? 3.0 Conventional Range 3.0 ? 4.5 Performed By: #### 1 [id number] ####[facility] [address] [place] [address] PT Coag (PPP) [Time] 11.7 second(s) Normal 9.4-12.5 [facility] Comment on above: Order Comment: if [...] ranges were obtained from a study by tonie Wise. prepared from 1437 samples obtained at 7 different centers using the same coagulation reagent and instrumentation as [facility]. Currently there are no coagulation studies available worldwide for children to 14 days, and no normal ranges. Performed By: #### 1 [id number] ####[facility] [address] [place] [address] Patient Education - Texton 0 04-17-2024 Patient Education - [place] INSTRU[place] Diet: ? Resume pre-procedure [...] you are interested in smoking cessation, contact [facility] at [phone], ext. [phone]. ? In the event you are unable to reach your physician, please call [facility] at [phone] and the foxing cutting machine operator will assist you. Discharging Nurse Physician Date/Time Patient or Responsible Libertarian Revised 07-02, 03-03, 12-07, 11-08 Normal [facility] Patient Education - Text [place], [place] DISCHARGE INSTRUCTIONS Diet: ? Resume pre-procedure [...] you are interested in smoking cessation, contact [facility] at [phone], ext. [phone]. ? In the event you are unable to reach your physician, please call [facility] at [phone] and the foxing cutting machine operator will assist you. Discharging Nurse Physician Date/Time Patient or Responsible Libertarian Revised 07-02, 03-03, 12-07, 11-08 Normal [facility] Patient Educationon 04-14-20 Patient Education Urology Benign Prostatic Hyperplasia Benign [...] Follow these instructions at home: ? Take cpwl-aqj-ydvbjyh and prescription medicines only as told by [...] the medicine (more content not included)... Normal [facility] Urology Office/Clinic Noteon 04-14-2024 Urology Office/Clinic Note Chief Complaint 5 week cath change w/ Rae HPI Staff Patient here today for 5 week cath change w/ Rae History of Present Illness I have reviewed and verified the staff HPI to be accurate for this encounter. Portions of this record may have been created with voice recognition artificial intelligence software, specifically [employer] and or SaySwap. Substitutions may have occurred due to the [...] Retention of urine, unspecified) Pt presented to [facility] ER 07/07/23 for retention. Pt [...] Hg (Most Recent) 3074F 4. Anticoagulated (Z79.01: senior care (current) use of anticoagulants) on warfarin Stress test x 2 with inconclusive results. Patient states that he is scheduled for cardiac cath next week. Other obstructive and reflux uropathy (N13.8: Other obstructive and reflux uropathy) Orders: oxybutynin, See Instructions, PRN for urinary discomfort, 1 tab po q 6 hrs PRN bladder spasms/leaking around [place], up to TID, # 30 tab(s), Refills(s) 3, [id number], cm, 10/08/23 12:12:00 EST, Height/Length Dosing, 123, kg, 10/08/23 12:12:0... oxybutynin, See Instructions, PRN for urinary discomfort, 1 tab po q 6 hrs PRN bladder spasms/leaking around [place], up to TID, # 30 tab(s), Refills(s) 3, Pharmacy: [facility]/pharmacy #[id number], 180, cm, 04/14/24 12:37:00 EDT, Height/Length Dosing, 154.3, kg, 04/14/24 12:37... Follow-up With When Contact Information ELEAZAR Lius APRN, Rae X, FAM, URL Additional Instructions: or [...] times per (more content not included)... Normal [facility] Comment on above: Result Comment: Elec tronically Signed By: ELEAZAR Luis APRN, Aurora X\.shruthi\Date and Time Signed: 04/14/24 13:24 EDT Insurance Correspondenceon 0 04-08-2024 Insurance Correspondence [id number]# 1.00TIFF Normal [facility] Progress Note-Physicianon Progress Note-Physician [id number]# 1.00TIFF Normal [facility] BMPon 04-07-2024 Anion gap [Moles/Vol] 13 mmol/L Normal 6-16 [facility] Comment on above: Performed By: #### 2 242836, [id number], [id number] ####[facility] [address] [place] [address] Calcium [Mass/Vol] 9.6 mg/dL Normal 8.9-11.1 [facility] Comment on above: Performed By: #### 2 392698, [id number], 4907805 ####[facility] [address] [place] [address] Chloride [Moles/Vol] 102 mmol/L Normal 101-111 [facility] Comment on above: Performed By: #### 2 372107, 89753051, 2735697 ####[facility] [address] [place] [address] CO2 [Moles/Vol] 26 mmol/L Normal 21-31 [facility] Comment on above: Performed By: #### 2 662534, 96609884, 1961357 ####[facility] [address] [place] [address] Creatinine [Mass/Vol] 1.2 mg/dL Normal 0.5-1.3 [facility] Comment on above: Performed By: #### 2 779328, 52064831, 9743893 ####[facility] [address] [place] [address] Glucose [Mass/Vol] 123 mg/dL Normal 55-199 [facility] Comment on above: Performed By: #### 2 868976, 32384050, 1431478 ####[address] [address] Potassium [Moles/Vol] 4.5 mmol/L Normal 3.5-5.3 [facility] Comment on above: Performed By: #### 2 877952, 46009557, 0652623 ####[address] [address] Sodium [Moles/Vol] 136 mmol/L Normal 135-145 [facility] Comment on above: Performed By: #### 2 385547, 44865129, 4144283 ####[address] [address] Urea nitrogen [Mass/Vol] 18 mg/dL Normal 5-21 [facility] Comment on above: Performed By: #### 2 009061, 28798768, 3316049 ####[address] [address] Urea nitrogen/Creatinine [Mass ratio] 15 No Units Normal 10-20 [facility] Comment on above: Performed By: #### 2 341388, 04553107, 6130690 ####[address] [address] CBC w/ Auto Diffon 4 Basophils/100 WBC (Bld) 1.0 % Normal 0.0-2.0 [facility] Comment on above: Performed By: #### 2 469435, 02952747, 4369691 ####[address] [address] Basophils/Leukocytes Auto (Bld) [Pure # fraction] 0.1 E9/L Normal 0.0-0.2 [facility] Comment on above: Performed By: #### 2 626358, 17388886, 2162009 ####[address] [address] Eosinophils (Bld) [#/Vol] 0.2 E9/L Normal 0.0-0.5 [facility] Comment on above: Performed By: #### 2 695864, 93384749, 6727360 ####[address] [address] Eosinophils/100 WBC (Bld) 2.2 % Normal 0.0-8.0 [facility] Comment on above: Performed By: #### 2 641459, 52248508, 8994328 ####[address] [address] Erythrocyte distribution width (RBC) [Ratio] 17.1 % High 10.9-14.2 [facility] Comment on above: Performed By: #### 2 959064, 98186832, 9051305 ####[address] [address] Hematocrit (Bld) [Volume fraction] 45.3 % Normal 37.7-49.0 [facility] Comment on above: Performed By: #### 2 125268, 01104466, 3141774 ####[address] [address] Hemoglobin (Bld) [Mass/Vol] 14.5 g/dL Normal 13.5-17.5 [facility] Comment on above: Performed By: #### 2 835765, 46022320, 6853727 ####[address] [address] Lymphocytes (Bld) [#/Vol] 1.2 E9/L Normal 1.0-4.0 [facility] Comment on above: Performed By: #### 2 099542, 39808658, 0935151 ####[address] [address] Lymphocytes/100 WBC (Bld) 16.1 % Normal 14.0-50.0 [facility] Comment on above: Performed By: #### 2 351650, 33177917, 9925064 ####[address] [address] MCH (RBC) [Entitic mass] 25.7 pg Low 27.0-34.0 [facility] Comment on above: Performed By: #### 2 571095, 97380172, 4065617 ####[address] [address] MCHC (RBC) [Mass/Vol] 32.0 g/dL Normal 31.4-36.0 [facility] Comment on above: Performed By: #### 2 842837, 50294669, 4692379 ####[address] [address] MCV (RBC) [Entitic vol] 80.4 fL Normal 80.0-100.0 [facility] Comment on above: Performed By: #### 2 312439, 47809836, 3944767 ####[address] [address] Monocytes (Bld) [#/Vol] 0.8 E9/L Normal 0.2-1.0 [facility] Comment on above: Performed By: #### 2 911078, 04479585, 2807764 ####[address] [address] Neutrophils (Bld) [#/Vol] 5.2 E9/L Normal 2.0-7.5 [facility] Comment on above: Performed By: #### 2 047215, 51279331, 3773124 ####[address] [address] Neutrophils/100 WBC (Bld) 70.3 % Normal 36.0-75.0 [facility] Comment on above: Performed By: #### 2 931154, 81156101, 9999235 ####[address] [address] Platelet mean volume (Bld) [Entitic vol] 7.9 fL Normal 6.4-10.8 [facility] Comment on above: Performed By: #### 2 544761, 68959352, 6530890 ####[facility] [address] [place] [address] Platelets (Bld) [#/Vol] 242.0 E9/L Normal 150.0-500.0 [facility] Comment on above: Performed By: #### 2 243828, 09396677, 3186120 ####[facility] [address] [place] [address] RBC (Bld) [#/Vol] 5.6 E12/L Normal 4.3-5.9 [facility] Comment on above: Performed By: #### 2 131271, 84045024, 9013877 ####[facility] [address] [place] [address] WBC corrected for nucl RBC Auto (Bld) [#/Vol] 7.4 E9/L Normal 4.0-11.0 [facility] Comment on above: Performed By: #### 2 664682, 46632562, 0299076 ####[facility] [address] [place] [address] CHEMISTRYOrdered By: SYSTEM SYSTEM on 04-07-2024 Anion [...] Treatmenton 03-25 Consent for Treatment [id number]#1 .00TIFF Normal [facility] Consent for Treatment [id number]#1 .00TIFF Normal [facility] HEMATOLOGYOrdered By: SYSTEM SYSTEM on 04-07-2024 [...] 11.0 E9/L Remisol [facility]e Heart and Vascular Office/Cl inic Noteon 04-07-2024 Heart and Vascular Office/Clinic Note [...] with voice recognition artificial intelligence software, specifically [employer] and or SaySwap. Substitutions may have occurred due to the [...] tobacco co (more content not included)... Normal [facility] Comment on above: Result Comment: Elec tronically Signed By: Chelsey ODOM, Paul Perez\.br\Date and Time Signed: 04/07/24 14:52 EDT eGFRon 04-07-2024 eGFR 64 mL/min/1.73 m2 Normal >=59 [facility] Comment on above: Order Comment: Order added by Discern Expert. Performed By: #### 2 064639, 37028767, 5247958 ####[facility] [address] [place] [address] Physician Referralon 024 Physician Referral [id number]#1 .00TIFF Normal [facility] Lab Reportson 03-30-2024 Lab Reports [id number]#1 .00TIFF Normal [facility] Ambulatory Visit Summaryon 0 03-09-2024 Ambulatory [...] PM EDT With: Where: [facility] Family Medicine Office/Clini c Noteon [...] Hg (Most Recent) 3075F 6. Anticoagulated (Z79.01: senior care (current) use of anticoagulants) - Pt will [...] No q (more content not included)... Normal [facility] Comment on above: Result Comment: Elec tronically Signed By: Zane GUERIN, Cortez Coybr\Date and Time Signed: 04/15/24 15:08 EDT Lab Reportson 02-13-2024 Lab Reports [id number]#1 .00TIFF Normal [facility] Ambulatory Visit Summaryon 0 02-11-2024 Ambulatory Visit Summary EUGENIA GIL :1950 Visit Date:02/11/2024 Ambulatory Visit Instructions Your Care Team Attending Physician - Shahab PATTON MD Primary Care Physician - Zane GEURIN, Cortez Erwin This Is Your Medications List oxybutynin (oxybutynin 5 mg Tab) tamsulosin (tamsulosin 0.4 mg Cap) warfarin What to do next Scheduled Follow-Up Appointments Saturday 1:15 PM EDT With: Zane GUERIN, Cortez Erwin Where: [facility] Normal [address] [place] [address]- \.br\ Saturday 1:15 PM EDT \.br\ With: Mica GUERIN, Aditya Orta\.br\ Where: [facility] [place]\.br\ Medications\.br\ What How Much When Instructions\.br \ [...] for choosing us for your care.\.br\ \.br\ [facility] Stress EKG Tracingson 2023 Stress EKG Tracings [id number]#1. 00TIFF Normal [facility] Consent for Treatmenton 01-23 Consent for Treatment [id number] .00TIFF Normal [facility] Lab Reportson 01-07-2024 Lab Reports [id number] .00TIFF Normal [facility] Ambulatory Visit Summaryon 0 12-30-2023 Ambulatory [...] AM EST With: Where: [facility] Normal [address] [place] [address]- \.br\ Saturday 1:15 PM EDT \.br\ With: Mica GUERIN, Aditya Orta\.br\ Where: [facility] [place]\.br\ Medications\.br\ What How Much When Instructions\.br \ [...] knee.\.br\ General instructions\.br \ ? \.br\ Take kjhw-rwv-asdzxqu and prescription medicines only as told by [...] provider.\.br\ Document Revised: 04/26/2021 Document Reviewed: 04/26/2021 [employer]ita[employer]avor Patient Education ? 2022 [employer].\.br\ \.br\ [facility] Family Medicine Office/Clini c Noteon 12-30-2023 [...] have the treadmill test now?? And if players assistant has to clear him why does he [...] Father. Immunizations Vaccine Date Status SARS-CoV-2 (COVID-19) mRNAMUL.ORD![id number] 12/13/2022 Recorded SARS-CoV-2 (COVID-19) mRNA BNT-162b2 vax 10/30/2021 Recorded SARS-CoV-2 (COVID-19) mRNA BNT-162b2 vax 02/14/2021 Recorded SARS-CoV-2 (COVID-19) mRNA BNT-162b2 vax 01/23/[address] [facility] Comment on above: Result Comment: Elec [...] under your knee. General instructions ? Take oyrr-ipw-skdakcz and prescription medicines only as told by [...] provider. Document Revised: 04/26/2021 Document Reviewed: 04/26/2021 [employer] Patient Education ? 2022 [employer]. [facility] Pre-Certification Formon Pre-Certification Form [id number]#1 .00TIFF [facility] Insurance Correspondenceon 0 12-25-2023 Insurance Correspondence [id number]# 1.00TIFF [facility] NM Myocardial Spect Part 2on 01-30-2024 NM Myocardial Spect Part 2 Exam Date/Time: [...] Stress Dose (mCi Tc99M Cardiolite): 29.1 Normal [facility] Stress EKG Tracingson 2023 Stress EKG Tracings [id number]# 1.00TIFF Normal [facility] Consent for Treatmenton 11-26 Consent for Treatment [id number]#1 .00TIFF Normal [facility] Heart and Vascular Office/Cl inic Noteon [...] cardiac issues and has not seen a players assistant in the past. He occasionally experiences a [...] with voice recognition artificial intelligence software, specifically [employer] and or SaySwap. Substitutions may have occurred due to the inherent limitations of voice recognition and artificial intelligence software. Documentation services were performed after patient or guardian consented to allow [employer] to record this visit. YENI site specialist and provider reviewed before signing. YENI: [...] No Known A (more content not included)... Normal [facility] Comment on above: Result Comment: Elec tronically Signed By: Aditya Nino MD\.br\Date and Time Signed: 12/19/23 18:28 EST\.br\Electronically Co-Signed By: Mare Cherry\.br\Date and Time Co-Signed: 12/13/23 12:06 EST Physician Orderon 12-13-2023 Physician Order [id number]# 1.00TIFF Normal [facility] Ambulatory Visit Summaryon 0 12-09-2023 Ambulatory [...] With: Aditya Nino MD Where: [facility] [place] 2023 8:00 AM EST With: Where: Cardiovascular Services 2023 9:00 AM EST With: Where: Nuclear Medicine 2023 10:00 AM EST With: Where: Nuclear Medicine Saturday 2:30 PM EST With: Where: Nuclear Medicine Saturday 3:30 PM EST With: Where: Nuclear Medicine Saturday 3:00 PM EST With: Cortez Degroot MD Where: [facility] [place] Normal [address] [place] [address]- \.br\ Medications\.br\ What How Much When Instructions\.br [...] for choosing us for your care.\.br\ \.br\ [facility] Insurance Correspondenceon 0 12-03-2023 Insurance Correspondence [id number]#1 .00TIFF Normal [facility] Family Medicine Office/Clini c Noteon 12-02-2023 Family Medicine Office/Clinic Note HPI Staff Kline is a 73 year old male presenting for surgical clearance Surgery scheduled for 12/05/23 w/ Dr Patton for a TURP at [facility] PAT testing is 11/21/23 flu: due [...] 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 Portions of this record may have been created with voice recognition artificial intelligence software, specifically [employer] and or SaySwap. Substitutions may have occurred due to the inherent limitations of voice recognition and artificial intelligence software. ATTESTATION: Documentation services were performed after patient or guardian consented to allow [employer] to record this visit. YENI site specialist and provider reviewed before signing. YENI: Dario Cool. Follow-up N (more content not included)... Normal [facility] Comment on above: Result Comment: Elec [...] AM EST With: Where: [facility] Invalid Interpretation Code [address] [place] [address] [place] [address]- \.br\ Saturday 3:00 PM EST \.br\ With: Cortez Degroot MD\.br\ Where: [facility] Lab Reportson 11-28-2023 Lab Reports [id number]#1 .00TIFF Normal [facility] Patient Educationon 11-28-19 24 Patient Education [...] numbers. This can be done either in Brazilian (U.S.) or metric measurements. Note that charts and online BMI calculators are available to help you find your BMI quickly and easily without having to do these calculations yourself. To calculate your BMI in Brazilian (U.S.) measurements: 1. Measure your weight in [...] for Disease Control and Prevention: www.cdc.gov ? [place] Heart Association: www.heart.org ? National Heart, Lung, and Blood [place]: www.nhlbi.nih.gov Summary ? Body mass index (BMI) is a number that is calculated from a person's weight and height. ? BMI may help estimate how much of a person's weight is composed of fat. BMI can help identify those who may be at higher risk for certain medical problems. ? BMI can be measured using Brazilian measurements or metric measurements. ? BMI charts are used to identify whether you are underweight, normal weight, overweight, or obese. This information is not intended to replace advice given to you by your health care provider. Make sure you discuss any questions you have with your health care provider. Document Revised: 08/03/2020 Document Reviewed: 06/10/2020 [employer] Patient Education ? 2022 [employer] Inc. [facility] Physician Referralon 024 Physician Referral [id number] #1.00TIFF Normal [facility] ECG 12-Leadon 11-22-2023 ECG 12-Lead [id number]#1 .00TIFF [facility] ECG 12-Lead [id number]#1 .00TIFF [facility] Lab Reportson 11-22-2023 Lab Reports [id number]#1 .00TIFF [facility] Lab Reports [id number]#1 [facility] [id number]#1 .00TIFF [facility] Ambulatory Visit Summaryon 1 01-06-2023 Ambulatory Visit [...] PM EST With: Cortez Degroot MD Where: [facility] Invalid Interpretation Code [address] [place] [address] [place] [address]- \.br\ Saturday 2:15 PM EST \.br\ With: Shahab PATTON MD\.br\ Where: [facility] Consultation Noteon 10-23-20 Consultation Note [id number]# [facility] Consent for Procedure/Surger yon 10-22-2023 Consent for Procedure/Surgery [id number]#1 [facility] Summaryon 1 12-08-2022 Ambulatory Visit Summary EUGENIA GIL Mindy :1950 Visit Date:10/08/2023 Ambulatory Visit Instructions Your Diagnosis Urinary retention BPH with urinary obstruction Anticoagulated Your Care Team Attending Physician - ESPERANZA LIVE PA-C Primary Care Physician - Cortez Degroot MD [...] Shahab PATTON MD Where: [facility] Barb Castro [facility] Patient Educationon 10-08-20 Patient Education Urology [...] including vitamins, herbs, eye drops, creams, and qsuk-igs-emvylrj medicines. ? Any problems you or family [...] tells you to take them. ? Taking atzc-jgv-sxjdcpu medicines, vitamins, herbs, and supplements. Surgery safety [...] health care (more content not included)... Normal [facility] Urology Office/Clinic Noteon 10-08-2023 Urology Office/Clinic [...] Retention of urine, unspecified) Pt presented to [facility] ER 07/07/23 for retention. Pt [...] E&M of Est. Patient Moderate 30-39 Min 99871 3. 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 Patient Moderate 30-39 Min 16663 4. 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 Patient Moderate 30-39 Min 17016 Orders: oxybutynin, See Instructions, PRN for urinary discomfort, 1 tab po q 6 hrs PRN bladder spasms/leaking around hinton, up to TID, # 30 tab(s), Refills(s) 3, Pharmacy: [facility]/pharmacy #[id number], 180, cm, 10/08/23 12:12:00 EST, Height/Length Dosing, 123, kg, 10/08/23 12:12:0... Follow-up With When Contact Information JENN GUERIN, Shahab Carrasquillo, URL Formerly named [facility] [place] [address]- Additional Instructions: Schedule TURP Patient Education Transurethral [...] Former s (more content not included)... Normal [facility] Comment on above: Result Comment: Elec [...] including vitamins, herbs, eye drops, creams, and vkfu-nxk-juagwis medicines. ? Any problems you or family [...] tells you to take them. ? Taking lspg-auf-tikkmtv medicines, vitamins, herbs, and supplements. Surgery safety [...] health care (more content not included)... Normal [facility] Consent for Procedure/Surger yon 09-03-2023 Consent for Procedure/Surgery [id number]#1 .00TIFF Normal [facility] Consent for Treatmenton 08-25 Consent for Treatment [id number]#1 .00TIFF Normal [facility] IntraOperative Documentson 1 IntraOperative Documents [id number] .00TIFF Normal [facility] IntraOperative Documents [id number]#1 .00TIFF Normal [facility] Main OR Intraoperative Recor don 09-03-2023 Main OR Intraoperative Record IntraOp Document Type FTURO Summary Primary Physician: Shahab PATTON MD Finalized Date/Time: 09/03/23 16:31:34 Pt. Name: EUGENIA GILO.B./Sex: 1950 Male Med Rec #: [id number] Physician: Shahab PATTON MD Financial #: [id number] Pt. Type: O Room/Bed: / Admit/Disch: 09/03/23 [...] 3 Case Attendee JENN GUERIN, Shahab Hemphill FLOWER CHENILLER, Faiza Okeefe RN Role Performed Surgeon - Primary Scrub - Primary Music Video Producer - Primary Time In 09/03/23 16:12:00 09/03/23 [...] By: Faiza Figueroa RN 09/03/23 16:31 Normal [facility] Main OR Preoperative Recordo n 09-03-2023 Main OR Preoperative Record Holding Area Document Type FTURO Summary Primary Physician: Shahab PATTON MD Finalized Date/Time: 09/03/23 16:08:42 Pt. Name: EUGENIA GIL D.O.B./Sex: 1950 Male Med Rec #: [id number] Physician: Shahab PATTON MD Financial #: [id number] Pt. Type: O Room/Bed: / Admit/Disch: 09/03/23 [...] pain in left knee Skin Integrity Intact, Strawberry, Warm, & Dry Vitals - EU Blood Pressure 144/84 Pulse 92 bpm Respirations 20 br/min SPO2 95 % RN Reviewed Yes Last Modified By: Faiza Figueroa RN 09/03/23 16:08:41 General Comments: Temp 97.3 Finalized By: Faiza Figueroa RN Document Signatures Signed By: Ruby Flores LPN 09/03/23 16:02 Faiza Figueroa RN 09/03/23 16:08 Normal [facility] Operative Reporton Operative Report Patient: EUGENIA [...] it for now. We replaced an 18 [place] catheter. He will get that changed in a month. He will call us if he is interested in going forward with a TURP.. [facility] Comment on above: Result Comment: Elec tronically Signed By: JENN GUERIN, Shahab Carrasquillo\.br\Date and Time Signed: 09/03/23 16:35 EDT Patient Educationon 09-03-20 Patient Education [facility] Ambulatory Visit Summaryon 0 08-12-2023 Ambulatory Visit Summary EUGENIA GIL :1950 Visit Date:08/12/2023 Ambulatory Visit Instructions Your Care Team Attending Physician - JENN GUERIN, Shahab Carrasquillo Primary Care Physician - Zane GUERIN, Cortez Erwin This Is Your Medications List ciprofloxacin (Cipro 500 mg Tab) tamsulosin (tamsulosin 0.4 mg Cap) warfarin What to do next Scheduled Follow-Up Appointments Saturday 8:15 AM EDT Where: [facility] Saturday 3:00 PM EDT Where: [facility] Saturday 3:45 PM EDT Where: [facility] Saturday 1:00 PM EST Where: [facility] Lab Reportson 08-11-2023 Lab Reports [id number] .00CD:127 [facility] Formson 08-06-2023 Forms [id number]. 00CD:127 [facility] Lab Reportson 08-06-2023 Lab Reports [id number]#1 .00CD:127 [facility] Ambulatory Visit Summaryon 0 08-05-2023 Ambulatory Visit Summary EUGENIA GIL :1950 Visit Date:08/05/2023 Ambulatory Visit Instructions Your Diagnosis Urinary retention Prostate cancer screening Anticoagulated Tests Performed Urnls Dip Stick Auto w/o Microscopy POC 20072 Your Care Team Attending Physician - JENN [...] ALYSSA When: Where: [facility] [address] [place] [address]- [phone] Medications What How Much When Instructions Unchanged tamsulosin (tamsulosin 0.4 mg Cap) 1 Capsules By Mouth Every day Unchanged warfarin By Mouth Every day Contact prescribing physician if questions or concerns Test Results Urnls Dip Stick Auto w/o Microscopy POC 56684 (08/05/2023) Bilirubin Urine Dipstick - Negative Blood Urine Dipstick - 2+ Moderate Glucose Urine Dipstick - Negative Ketones Urine Dipstick - Negative Leukocytes Urine Dipstick - 1+ Small Nitrite Urine Dipstick - Negative Protein Urine Dipstick - 3+ (300 mg/dl) Specific [place] Urine Dipstick - 1.025 Urine Appearance Urine Dipstick - Clear Urine Color Urine Dipstick - Yellow Urobilinogen Urine Dipstick - Normal 0.2-1 EU/dl pH Urine Dipstick - 7 Allergies No Known Allergies Problems Ongoing - Any problem that you are currently receiving treatment for. Anticoagulated Prostate cancer screening Urinary retention Normal [facility] ED Note-Physicianon 08-05-20 ED Note-Physician [id number] .00CD:127 Normal [facility] Patient Educationon 08-05-20 Patient Education Urology [...] including vitamins, herbs, eye drops, creams, and xxqv-wof-wzkdbnn medicines. ? Whether you are or may [...] be (more content not included)... Normal 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 Pt prestent to [facility] ER 07/07/23 for retention. Pt [...] order one now. 3. 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 4. Former smoker (Z87.891: Personal history of nicotine dependence) Increased risk for urothelial cancer. Follow-up With When Contact Information JENN GUERIN, Shahab Carrasquillo, URL [facility] [address], [place] [phone] Additional Instructions: sched Cysto/UDS PSA Patient Education [...] Allergies Immunizations Vaccine Date Status SARS-CoV-2 (COVID-19) mRNAMUL.ORD![id number] 12/13/2022 Recorded SARS-CoV-2 (COVID-19) mRNA BNT-162b2 vax 10/30/2021 Recorded SARS-CoV-2 (COVID-19) mRNA BNT-162b2 vax 02/14/2021 Recorded SARS-CoV-2 (COVID-19) mRNA BNT-162b2 vax 01/23/2021 Recorded Lab Results Ambulatory Point of Care Results Bilirubin Urine Dipstick: Negative (08/05/23 12:18:00) Blood Urine Dipstick: 2+ Moderate (08/05/23 12:18:00) Glucose Urine Dipstick: Negative (08/05/23 12:18:00) Ketones Urine Dipstick: Negative (08/05/23 12:18:00) L (more content not included)... Normal [facility] Comment on above: Result Comment: Elec tronically Signed By: Andra Jamil\.br\Date and Time Signed: 08/05/23 13:29 EDT Vital Signs Date Time Vital Sign Value Performing Clinician Faci lity 07-31-2024 10:41-0400 Body temperature 98.6 [degF] Shahab PATTON [facility] 07-31-2024 10:41-0400 Diastolic blood pressure 85 mm[Hg] Shahab PATTON [facility] 07-31-2024 10:41-0400 Heart rate 77 /min Shahab PATTON [facility] 07-31-2024 10:41-0400 Respiratory rate 16 /min Shahab PATTON [facility] 07-31-2024 10:41-0400 Systolic blood pressure 136 mm[Hg] Shahab PATTON [facility] 05-20-2024 10:07-0400 Blood Pressure Location Paul Barbosa [facility] 05-20-2024 10:07-0400 Diastolic blood pressure 79 mm[Hg] Paul Barbosa [facility] 05-20-2024 10:07-0400 Heart rate 76 /min Paul Barbosa [facility] 05-20-2024 10:07-0400 Respiratory rate 16 /min Paul Barbosa [facility] 05-20-2024 10:07-0400 SaO2% (BldA) [Mass fraction] 89 % Paul Barbosa [facility] 05-20-2024 10:07-0400 Systolic blood pressure 132 mm[Hg] Paul Barbosa [facility] 04-14-2024 12:31-0400 Blood Pressure Location Rae Orzech [facility] 04-14-2024 12:31-0400 Body temperature 98.06 [degF] Rae Orzech [facility] 04-14-2024 12:31-0400 Diastolic blood pressure 77 mm[Hg] Rae Orzech [facility] 04-14-2024 12:31-0400 Heart rate 97 /min Rae Orzech [facility] 04-14-2024 12:31-0400 Respiratory rate 16 /min Rae Orzech [facility] 04-14-2024 12:31-0400 Systolic blood pressure 125 mm[Hg] Rae Korysharona [facility] 04-07-2024 14:03-0400 Blood Pressure Location Paul Barbosa [facility] 04-07-2024 14:03-0400 Diastolic blood pressure 84 mm[Hg] Paul Barbosa [facility] 04-07-2024 14:03-0400 Heart rate 83 /min Paul Barbosa [facility] 04-07-2024 14:03-0400 Systolic blood pressure 130 mm[Hg] Paul Barbosa [facility] 12-13-2023 10:31-0500 Blood Pressure Location Aditya Nino [facility] 12-13-2023 10:31-0500 Diastolic blood pressure 80 mm[Hg] Aditya Nino [facility] 12-13-2023 10:31-0500 Heart rate 86 /min Aditya Nino [facility] 12-13-2023 10:31-0500 SaO2% (BldA) [Mass fraction] 91 % Aditya Nino [facility] 12-13-2023 10:31-0500 Systolic blood pressure 120 mm[Hg] Aditya Nino [facility] 08-12-2023 13:50-0400 Body height 180.34 cm Beth Joseph Other [employer] Other 08-12-2023 13:50-0400 Body mass index (BMI) [Ratio] 45.07 kg/m2 Beth Joseph Other [employer] Other 08-12-2023 13:50-0400 Body temperature 96.6 [degF] Beth Joseph Other [employer] Other 08-12-2023 13:50-0400 Body weight 146.6 kg Beth Joseph Other [employer] Other 08-12-2023 13:50-0400 Diastolic blood pressure 82 mm[Hg] Beth Joseph Other [employer] Other 08-12-2023 13:50-0400 Respiratory rate 18 /min Beth Joseph Other [employer] Other 08-12-2023 13:50-0400 SaO2% (BldA) [Mass fraction] 97 % Beth Joseph Other [employer] Other 08-12-2023 13:50-0400 Systolic blood pressure 142 mm[Hg] Beth Joseph Other [employer] Other 08-05-2023 12:21-0400 Blood Pressure Location Shahab PATTON [facility] 08-05-2023 12:21-0400 Body temperature 97.52 [degF] Shahab PATTON [facility] 08-05-2023 12:21-0400 Diastolic blood pressure 88 mm[Hg] Shahab PATTON [facility] 08-05-2023 12:21-0400 Heart rate 88 /min Shahab PATTON [facility] 08-05-2023 12:21-0400 Systolic blood pressure 132 mm[Hg] Shahab PATTON [facility] Encounters Encounter Date Encounter Type Care Provider Facility Start: 05-10-2025 ambulatory Cortez Degroot Facility :[facility] Start: 08-31-2024 ambulatory Shahab Foreign PATTON Facili ty: [facility] Start: 08-24-2024 ambulatory Cortez Degroot Facility :[facility] Start: 07-31-2024 End: 07-31-2024 ambulatory Shahab Foreign PATTON Facility: [facility] Start: 07-31-2024 End: 07-31-2024 Patient encounter procedure Shahab PATTON [facility] Start: 07-13-2024 End: 07-13-2024 ambulatory Cortez Degroot Facility:[facility] [place] Start: 07-06-2024 End: 08-05-2024 ambulatory Cortez Degroot Facility:CD:[id number] Start: 07-06-2024 End: 07-06-2024 ambulatory Shahab PATTON Facility: [place] Start: 07-06-2024 End: 07-06-2024 Patient encounter procedure Shahab PATTON [facility] Start: 07-02-2024 End: 07-02-2024 ambulatory Shahab Patton [facility] Work Phone: Start: 07-02-2024 End: 07-02-2024 Departed Referred MD Shahab Patton Work Phone: [facility] Start: 07-02-2024 End: 07-02-2024 ambulatory Shahab PATTON Facility:CD:[id number] Start: 06-09-2024 End: 06-09-2024 ambulatory Rae Luis Facility: [facility] Start: 06-09-2024 End: 06-09-2024 Patient encounter procedure Rae X Orzech [facility] Start: 05-20-2024 End: 05-20-2024 ambulatory Paul Barbosa Facility:[facility] Start: 05-20-2024 End: 05-20-2024 Patient encounter procedure Paul Barbosa [facility] Start: 05-20-2024 End: 05-20-2024 Preprocedural examination done Paul Barbosa [facility] Start: 05-12-2024 End: 05-12-2024 ambulatory ESPERANZA LIVE Facility:[facility] Start: 05-12-2024 End: 05-12-2024 Patient encounter procedure ESPERANZA LIVE [facility] Start: 05-11-2024 End: 05-11-2024 ambulatory Cortez Degroot Facility:[facility] Start: 04-17-2024 End: 04-17-2024 Admission to same day surgery center Aditya Nino [facility] Start: 04-17-2024 End: 04-17-2024 ambulatory Aditya Nino Facility:[facility] Start: 04-14-2024 End: 04-14-2024 ambulatory Rae X Orzech Facility:[facility] Start: 04-14-2024 End: 04-14-2024 Patient encounter procedure Rae X Orzech [facility] Start: 04-07-2024 End: 04-07-2024 ambulatory Paul Barbosa Facility:[facility] Start: 04-07-2024 End: 04-07-2024 Patient encounter procedure Paul Barbosa [facility] Start: 04-07-2024 End: 04-07-2024 ambulatory XXXX NONE Facility:[facility] Start: 04-07-2024 End: 04-07-2024 Patient encounter procedure Paul Barbosa [facility] Start: 03-10-2024 End: 03-10-2024 ambulatory ESPERANZA TONYRY Facility:[facility] Start: 03-10-2024 End: 03-10-2024 Patient encounter procedure ESPERANZA LIVE [facility] Start: 03-09-2024 End: 03-09-2024 ambulatory Cortez Degroot Facility:[facility] Start: 02-11-2024 End: 02-11-2024 ambulatory Shahab PATTON Facility:[facility] Start: 02-11-2024 End: 02-11-2024 Patient encounter procedure Shahab PATTON [facility] Start: 02-06-2024 End: 02-06-2024 ambulatory Aditya Nino Facility[facility] Start: 02-06-2024 End: 02-06-2024 Patient encounter procedure Aditya Nino [facility] Start: 01-06-2024 End: 01-06-2024 ambulatory Shahab PATTON Facility:[facility] Start: 01-06-2024 End: 01-06-2024 Patient encounter procedure Shahab PATTON [facility] Start: 12-30-2023 End: 12-30-2023 ambulatory Cortez Degroot Facility:[facility] Start: 12-26-2023 ambulatory Shahab PATTON Facility :[facility] Start: 12-19-2023 End: 03-19-2024 ambulatory Cortez Degroot Facility:[facility] Start: 12-19-2023 End: 03-19-2024 Recurring Cortez Degroot [facility] Start: 12-13-2023 End: 12-13-2023 ambulatory Cortez Degroot Facility:[facility] Start: 12-13-2023 End: 12-13-2023 Patient encounter procedure Aditya Nino [facility] Start: 12-09-2023 End: 12-09-2023 ambulatory Shahab PATTON Facility:[facility] Start: 12-09-2023 End: 12-09-2023 Patient encounter procedure Shahab PATTON [facility] Start: 12-05-2023 End: 12-05-2023 ambulatory Shahab PATTON Facility:[facility] [place] Start: 12-05-2023 End: 12-05-2023 Off-Site Shahab PATTON [facility] Start: 11-28-2023 End: 11-28-2023 ambulatory Cortez Degroot Facility:[facility] Start: 11-05-2023 End: 11-05-2023 ambulatory Shahab PATTON [facility] Start: 10-08-2023 End: 10-08-2023 ambulatory ESPERANZA LIVE [facility] Start: 10-08-2023 End: 10-08-2023 Patient encounter procedure ESPERANZA LIVE [facility] Start: 09-03-2023 End: 09-03-2023 ambulatory Shahab PATTON Facility:[facility] Start: 08-12-2023 Office outpatient ne w 10 minutes [facility] Op[facility] Start: 08-12-2023 End: 08-12-2023 ambulatory Shahab PATTON [facility] [employer] Other Start: 08-12-2023 End: 08-12-2023 Patient encounter procedure Shahab PATTON [facility] Start: 08-05-2023 End: 08-05-2023 ambulatory Shahab PATTON Facility:[facility] Start: 08-05-2023 End: 08-05-2023 Patient encounter procedure Shahab PATTON [facility] Start: 07-11-2023 ambulatory Shahab PATTON Facility :[facility] [...] Start: 05-25-2022 End: 06-22-2022 ambulatory SHAIKH Chris MONROE Facility:[facility] Procedures Date Procedure Procedure Detail Performing Clinician Start: 07-02-2024 Transurethral prostatectomy Shahab PATTON Start: 04-17-2024 Catheterization of l eft heart ESPERANZA LIVE Tonsillectomy Paul Barbosa Plan of Treatment Date Care Activity Detail Author Start: 07-02-2024 [facility] Immunizations Immunization Date Immunization Notes Care Provider Fa [facility] 12-13-2022 SARS-CoV-2 (COVID-19 ) [id number] Shahab PATTON [facility] 10-30-2021 SARS-CoV-2 (COVID-19 ) mRNA BNT-162b2 vax Shahab PATTON [facility] 02-14-2021 SARS-CoV-2 (COVID-19 ) mRNA BNT-162b2 vax Shahab PATTON [facility] 01-23-2021 SARS-CoV-2 (COVID-19 ) mRNA BNT-162b2 vax Shahab PATTON [facility] Payers Date Payer Category Payer Self-pay 2022 Unknown [id number] 1959 Unknown [id number] 1950 Unknown [id number] 2.16.84 0.1.536972.3.579.2.593 1950 Unknown [id number] 2.16.84 0.1.139028.3.579.2.593 1950 Unknown [id number] 2.16.84 0.1.417528.3.579.2.593 1952 Unknown [id number] 2.16.84 0.1.779557.3.579.2.593 1952 Unknown [id number] 2.16.84 0.1.573637.3.579.2.593 1952 Unknown [id number] 2.16.84 0.1.078264.3.579.2.593 1952 Unknown [id number] 2.16.84 0.1.841860.3.579.2.593 1952 Unknown [id number] 2.16.84 0.1.885452.3.579.2.593 1952 Unknown [id number] 2.16.84 0.1.820267.3.579.2.593 1952 Unknown [id number] 2.16.84 0.1.759899.3.579.2.593 1952 Unknown [id number] 2.16.84 0.1.319106.3.579.2.593 1952 Unknown [id number] 2.16.8 40.1.670534.3.579.2.727 1952 Unknown [id number] 2.16.8 40.1.147550.3.579.2.727 1952 Unknown [id number] 2.16.8 40.1.648465.3.579.2.727 1952 Unknown [id number] 2.16.8 40.1.700500.3.579.2.727 1952 Unknown [id number] 2.16.8 40.1.939513.3.579.2.727 1952 Unknown [id number] 2.16.8 40.1.726740.3.579.2.727 1952 Unknown [id number] 2.16.8 40.1.749132.3.579.2.727 1952 Unknown [id number] 2.16.8 40.1.607226.3.579.2.727 1952 Unknown [id number] 2.16.8 40.1.656520.3.579.2.727 1952 Unknown [id number] 2.16.8 40.1.286647.3.579.2.727 1952 Unknown [id number] 2.16.8 40.1.926922.3.579.2.727 1952 Unknown [id number] 2.16.8 40.1.563312.3.579.2.727 1952 Unknown [id number] 2.16.8 40.1.362284.3.579.2.727 1952 Unknown [id number] 2.16.8 40.1.496723.3.579.2.727 1952 Unknown [id number] 2.16.8 40.1.573935.3.579.2.727 1952 Unknown [id number] 2.16.8 40.1.083128.3.579.2.727 1952 Unknown [id number] 2.16.8 40.1.471116.3.579.2.727 1952 Unknown [id number] 2.16.8 40.1.599376.3.579.2.727 1952 Unknown [id number] 2.16.8 40.1.277845.3.579.2.727 1952 Unknown [id number] 2.16.8 40.1.756018.3.579.2.727 1952 Unknown [id number] 2.16.8 40.1.503110.3.579.2.727 1952 Unknown [id number] 2.16.8 40.1.396179.3.579.2.727 1952 Unknown [id number] 2.16.8 40.1.590555.3.579.2.727 1952 Unknown [id number] 2.16.8 40.1.649697.3.579.2.727 1952 Unknown [id number] 2.16.8 40.1.453231.3.579.2.727 1952 Unknown [id number] 2.16.8 40.1.317625.3.579.2.727 1952 Unknown [id number] 2.16.8 40.1.299008.3.579.2.727 1952 Unknown [id number] 2.16.8 40.1.052362.3.579.2.727 1952 Unknown [id number] 2.16.8 40.1.163375.3.579.2.727 1952 Unknown [id number] 2.16.8 40.1.199210.3.579.2.727 1952 Unknown [id number] 2.16.8 40.1.566565.3.579.2.727 1952 Unknown [id number] 2.16.8 40.1.291190.3.579.2.727 1952 Unknown [id number] 2.16.8 40.1.136082.3.579.2.727 1952 Unknown [id number] 2.16.8 40.1.131064.3.579.2.727 1952 Unknown [id number] 2.16.8 40.1.281480.3.579.2.727 Social History Date Type Detail Facility Tobacco smoking status [facility] Sex Assigned At Male [facility] Start: 10-08-2023 End: 07-31-2024 Tobacco smoking status Ex-smoker (finding) [facility] Comment on above: Patient states he sm oked 1 PPD from 19 y.o. to 69 y.o. Start: 12-13-2023 Tobacco smoking status Former smokeless tobacco user, quit more than 30 days ago [facility] Comment on above: Patient states he sm oked 1 PPD from 19 y.o. to 69 y.o. Start: 08-12-2023 [facility] Start: 1950 Sex Assigned At Male F [facility] Functional Status Date Assessment Result Facility 07-31-2024 Functional Status N/A [facility] 05-20-2024 Functional Status N/A [facility] 04-17-2024 Functional Status N/A [facility] 04-14-2024 Functional Status N/A [facility] 04-07-2024 Functional Status No [facility] 12-13-2023 Functional Status No [facility] 10-08-2023 Functional Status N/A [facility] 08-05-2023 Functional Status N/A [facility] Clinical Notes 12-19-2019 to 07-31-2024 Note [...] Follow these instructions at home: Medicines Take txll-fcs-ufxruqx and prescription medicines only as told by [...] to keep your urine pale yellow. Take nzso-nhk-zmnrelv or prescription medicines. Eat foods that are [...] provider. Document Revised: 08/07/2022 Document Reviewed: 08/07/2022 [employer] Patient Education 2023 [employer]. Follow Up Care 05/25/2024 11:59:23 With:JENN GUERIN, ALYSSA Nicholas Address: [facility] [address] , [place] [phone] When: Unknown [facility] 07-31-2024 Note Patient Education Urology Transurethral Resection of the Prostate, Care After The following information offers guidance on how to care for yourself after your procedure. Your health care provider may also give you more specific instructions. If you have problems or questions, contact your health care provider. What can I expect after the procedure? After the procedure, it is common to have: ? Mild pain in your lower abdomen. ? Soreness or mild discomfort in your penis or when you urinate. This is from having the catheter inserted during the procedure. ? A sudden urge to urinate (urgency). ? A need to urinate often. ? A small amount of blood in your urine. You may notice some small blood clots in your urine. These are normal. Follow these instructions at home: Medicines ? Take ukuq-dfm-wfgudia and prescription medicines only as told by your health care provider. ? If you were prescribed an antibiotic medicine, take it as told by your health care provider. Do not stop taking the antibiotic even if you start to feel better. Activity ? Rest as told by your health care provider. ? Avoid sitting for a long time without moving. Get up to take short walks every 1?2 hours. This is important to improve blood flow and breathing. Ask for help if you feel weak or unsteady. You may increase your physical activity gradually as you start to feel better. ? Do not drive or operate machinery until your health care provider says that it is safe. ? Do not ride in a car for long periods of time, or as told by your health care provider. ? Avoid intense physical activity for as long as told by your health care provider. ? Do not lift anything that is heavier than 10 lb (4.5 kg), or the limit that you are told, until your health care provider says that it is safe. ? Do not have sex until your health care provider approves. ? Return to your normal activities as told by your health care provider. Ask your health care provider what activities are safe for you. Preventing constipation You may need to take these actions to prevent or treat constipation: ? Drink enough fluid to keep your urine pale yellow. ? Take ixhc-jqo-kfjfhep or prescription medicines. ? Eat foods that are high in fiber, such as beans, whole grains, and fresh fruits and vegetables. ? Limit foods that are high in fat and processed sugars, such as fried or sweet foods. General instructions ? Do not strain when you have a bowel movement. Straining may lead to bleeding from the prostate. This may cause blood clots and trouble urinating. ? Do not use any products that contain nicotine or tobacco. These products include cigarettes, chewing tobacco, and vaping devices, such as e-cigarettes. If you need help quitting, ask your health care provider. ? If you go home with a tube draining your urine (urinary catheter), care for the catheter as told by your health care provider. ? Wear compression stockings as told by your health care provider. These stockings help to prevent blood clots and reduce swelling in your legs. ? Keep all follow-up visits. This is important. Contact a health care provider if: ? You have signs of infection, such as: ? Fever or chills. ? Urine that smells very bad. ? Swelling around your urethra that is getting worse. ? Swelling in your penis or testicles. ? You have difficulty urinating. ? You have pain that gets worse or does not improve with medicine. ? You have blood in your urine that does not go away after 1 week of resting and drinking more fluids. ? You have trouble having a bowel movement. ? You have trouble having or keeping an erection. ? No semen comes out during orgasm (dry ejaculation). ? You have a urinary catheter in place, and you have: ? Spasms or pain. ? Problems with your catheter or your catheter is blocked. Get help right away if: ? You are unable to urinate. ? You are having more blood clots in your urine instead of fewer. ? You have: ? Large blood clots. ? A lot of blood in your urine. ? Pain in your back or lower abdomen. ? You have difficulty breathing or shortness of breath. ? You develop swelling or pain in your leg. These symptoms may be an emergency. Get help right away. Call 911. ? Do not wait to see if the symptoms will go away. ? Do not drive yourself to the hospital. Summary ? After the procedure, it is common to have a small amount of blood in your urine. ? Follow restrictions about lifting and sexual activity as told by your health care provider. Ask what activities are safe for you. ? Keep all follow-up visits. This is important. This information is not intended to replace advice given to you by your health care provider. Make sure you discuss any questions you have with your health care provider. Document Revised: 08/07/2022 Document Reviewed: 08/07/2022 Elsevier Patient Education ? 2023 [employer] [facility] 04-27-2024 Note Procedure LHC poss PCI via [...] Plan: Patient agrees to IV sedation plan [facility] Comment on above: Result Comment: Elec tronically Signed By: Mica GUERIN, Aditya Orta\.br\Date and Time Signed: 04/27/24 12:02 EDT 04-21-2024 Note [id number]#1.00TIFF [facility] 04-17-2024 Hospital Discharge instructions Patient Education 04/17/2024 07:44:44 Cardiovascular Discharge Instructions - Revised 11/16/15 (CUSTOM) [place], [place] DISCHARGE INSTRUCTIONS Diet: Resume pre-procedure diet. [...] hours post procedure: Actoplus MetGlucophageGlucophage XR GlucovanceAvandametFortamet Kky-kkygyetbxLeniwzOoea-hbiedolto GlumetzaJanumetMetaglip RiometGlycomet *Minimal pain, soreness and/or discomfort [...] you are interested in smoking cessation, contact [facility] at [phone], ext. [phone]. In the event you are unable to reach your physician, please call [facility] at [phone] and the foxing cutting machine operator will assist you. Discharging Nurse Physician Date/Time Patient or Responsible Libertarian Revised 07-02, 03-03, 12-07, 11-08 Follow Up Care 04/08/2024 10:03:08 With:Paul Barbosa Address: [address] [place] [address] [place] [address] [phone] Business (1) When:05/20/2024 09:45:00 [facility] 04-14-2024 Hospital Discharge instructions Patient Education 04/14/2024 [...] urethra. Follow these instructions at home: Take xaek-ava-xapnmbi and prescription medicines only as told by [...] provider. Document Revised: 05/30/2022 Document Reviewed: 05/30/2022 [employer] Patient Education 2022 [employer]. 04/14/2024 13:24:15 Urinary Incontinence Urinary Incontinence Urinary [...] nerve stimulation). ?For women, using a medical technologist prn to prevent urine leaks. This is a [...] right after experiencing incontinence. General instructions Take juok-wwc-uhcidnd and prescription medicines only as told by [...] important. Where to find more information National [place] of Diabetes and Digestive and Kidney Diseases: www.niddk.nih.gov [place] [employer]: www.urologyhealth.org Contact a health care [...] provider. Document Revised: 06/16/2021 Document Reviewed: 06/16/2021 [employer] Patient Education 2022 [employer]. 04/14/2024 13:24:11 Acute Urinary Retention, Male Acute [...] Follow these instructions at home: Medicines Take epsm-kqy-cnlvnie and prescription medicines only as told by [...] provider. Document Revised: 08/02/2021 Document Reviewed: 08/02/2021 [employer] Patient Education 2022 [employer]. Follow Up Care 03/10/2024 12:55:54 With:ELEAZAR Luis APRN, Rae Schmidt, DARIUS, URL Address: When: Unknown Comments:or another BELA for cath change, 4 wks [facility] 04-14-2024 Hospital Discharge instructions Follow Up Care 04/14/2024 13:09:53 With:ESPERANZA LIVE PA-C, URL Address: [facility] [place] [address] [phone] When: Unknown [facility] 12-24-2023 Note Echocardiology Procedure Exam Date/Time Accession # Ordering Echo Transthoracic 12/19/2023 08:56 [facility] [id number] Cortez Degroot MD Complete CPT code 93154 76503 Reason for Exam (Echo Transthoracic Complete) Shortness of breath (SOB);Z76.89 Report Version: 1 Study ID: [id number] [facility] [address] [place] [address] Adult Echocardiogram Report Name: EUGENIA GIL Study Date: 12/19/2023, 8: 13 AM Patient Location: [facility] : 1950 (MM/DD/YYYY) Gender: Male Age: 73 [...] Signed by: Aditya Nino MD Transcribed by: [facility] Technologist: OSMAR [facility] 10-08-2023 Hospital Discharge instructions Patient Education [...] including vitamins, herbs, eye drops, creams, and wytm-bjv-qvzcamf medicines. Any problems you or family members [...] provider tells you to take them. Taking efup-zxf-mvhkhyn medicines, vitamins, herbs, and supplements. Surgery safety [...] provider. Document Revised: 08/07/2022 Document Reviewed: 08/07/2022 [employer] Patient Education 2022 [employer]Files. Follow Up Care 08/12/2023 13:22:25 With:JENN GUERIN, Shahab Carrasquillo, URL Address: [address] [place] [address]- When: Unknown [facility] 09-03-2023 Note [id number]#1.00TIFF [facility] 08-12-2023 Evaluation note Encounter Date Diagnosis [...] Contact dermatitis home care material was printed [employer] Other 09-11-2023 Hospital Discharge instructions Patient Education [...] including vitamins, herbs, eye drops, creams, and npsf-fqp-ijtgdvp medicines. ?Whether you are or may be [...] provider. Document Revised: 07/25/2022 Document Reviewed: 06/16/2021 [employer] Patient Education 2022 [employer] Inc. 08/05/2023 13:14:39 Cystoscopy Cystoscopy Cystoscopy is [...] including vitamins, herbs, eye drops, creams, and lxmt-kyj-yxobnth medicines. Any problems you or family members [...] provider tells you to take them. Taking duno-sqm-vmfzubr medicines, vitamins, herbs, and supplements. Tests You [...] Follow these instructions at home: Medicines Take eowo-ktp-uocyxae and prescription medicines only as told by [...] provider. Document Revised: 07/25/2022 Document Reviewed: 06/23/2021 [employer] Patient Education 2022 [employer]Files. 08/05/2023 13:14:16 Acute Urinary Retention, Male Acute [...] Follow these instructions at home: Medicines Take yash-ilz-nnxviee and prescription medicines only as told by [...] provider. Document Revised: 08/02/2021 Document Reviewed: 08/02/2021 [employer] Patient Education 2022 [employer]Files. Follow Up Care 07/11/2023 10:33:42 With:JENN GUERIN, Shahab Carrasquillo, URL Address: [facility] [address], [place] [phone] When: Unknown Comments:sched Cysto/UDS [facility] 01-25-2020 Evaluation + Plan note Future Appointments Appointment Date:12/19/2023 08:00:00 AM Scheduled Provider: Location:.[facility] Appointment Type:CV Echo (FT) Appointment Date:12/19/2023 09:00:00 AM Scheduled [facility] Type:NM Myocard Spect Multi Rest/Stress-Res Appointment Date:12/19/2023 10:00:00 AM Scheduled Provider: [facility] App[facility] Type:NM Myocard Spect Multi Rest/Stress - R Appointment Date:12/20/2023 02:30:00 PM Scheduled Provider: [facility] Appointment Type:NM Myocard Spect MultiRest/Stress-Stre Appointment Date:12/20/2023 03:30:00 PM Scheduled Provider: [facility] Appointment Type:NM Myocard Spect Multi Rest/Stress - S Appointment Date:12/30/2023 03:00:00 PM Scheduled Provider:Cortez Degroot MD Location:[facility] Appointment Type:FM Open Appointment Date:01/06/2024 11:00:00 AM Scheduled Provider: Location:[facility] Appointment Type:URO Nurse Visit Appointment Date:03/13/2024 01:15:00 PM Scheduled Provider:Aditya Nino MD [facility] [place] Appoint[facility] Type:Cardiology Follow Up (FT) Future Scheduled Tests Radiology* Echo Transthoracic Complete 12/19/23 * NM Myocardial Spect Rest/Stress 2 Day 12/19/23 * NM Myocardial Spect Part 2 11/28/23 * XR Chest 2 Views [facility]28[facility]23 [facility] Future App[facility]ments Appointment Date:08/12/2023 01:00:00 PM Scheduled Provider: Location:[facility] Appointment Type:URO Nurse Visit Appointment Date:08/30/2023 08:15:00 AM Scheduled Provider: Location:[facility] Appointment Type:Urology CALL PAT FT Appointment Date:09/03/2023 03:00:00 PM Scheduled Provider: Location:[facility] Appointment Type:Urology FT Appointment Date:09/03/2023 03:45:00 PM Scheduled Provider: Location:[facility] Appointment Type:Urology FT Diagnostic Tests Pending * PSA Screen, Total 08/05/23 [facility] evaluation + Plan note Future Appointments Appointment Date:08/30/2023 08:15:00 AM Scheduled Provider: Location:[facility] Appointment Type:Urology CALL PAT FT Appointment Date:09/03/2023 03:00:00 PM Scheduled Provider: Location:[facility] Appointment Type:Urology FT Appointment Date:09/03/2023 03:45:00 PM Scheduled Provider: Location:[facility] Appointment Type:Urology FT Appointment Date:10/07/2023 01:00:00 PM Scheduled Provider: Location:[facility] Appointment Type:URO Nurse Visit [facility] evaluation + Plan note Future Appointments Appointment Date:12/20/2023 11:00:00 AM Scheduled Provider:Shahab PATTON MD Location:[facility] Appointment Type:URO Office Visit [facility] evaluation + Plan note Future Appointments Appointment Date:12/09/2023 10:00:00 AM Scheduled Provider: Location:[facility] Appointment Type:URO Nurse Visit Appointment Date:12/13/2023 10:15:00 AM Scheduled Provider:Aditya Nino MD [facility] [place] Appointment Type:Cardiology New Patient (FT) Appointment Date:12/19/2023 08:00:00 AM Scheduled Provider: [facility] Type:CV Echo (FT) Appointment Date:12/19/2023 09:00:00 AM Scheduled Provider: [facility] App[facility] Type:NM Myocard Spect Multi Rest/Stress-Res Appointment Date:12/19/2023 10:00:00 AM Scheduled Provider: [facility] Appointment Type:NM Myocard Spect Multi Rest/Stress - R Appointment Date:12/20/2023 02:30:00 PM Scheduled Provider: [facility] Appointment Type:NM Myocard Spect MultiRest/Stress-Stre Appointment Date:12/20/2023 03:30:00 PM Scheduled Provider: [facility] Appointment Type:NM Myocard Spect Multi Rest/Stress - S Appointment Date:12/30/2023 03:00:00 PM Scheduled Provider:Cortez Degroot MD Location:[facility] Appointment Type: Open Future Scheduled Tests Radiology* Echo Transthoracic Complete 12/19/23 * NM Myocardial Spect Rest/Stress 2 Day 12/19/23 * NM Myocardial Spect Part 2 11/28/23 * XR Chest 2 Views 11/28/23 [facility] Evaluation + Plan note Future Appointments Appointment Date:12/13/2023 10:15:00 AM Scheduled Provider:Aditya Nino MD [facility] [place] Appointment Type:Cardiology New Patient (FT) Appointment Date:12/19/2023 08:00:00 AM Scheduled Provider: [facility] App[facility] Type:CV Echo (FT) Appointment Date:12/19/2023 09:00:00 AM Scheduled Provider: [facility] Appointment Type:NM Myocard Spect Multi Rest/Stress-Res Appointment Date:12/19/2023 10:00:00 AM Scheduled Provider: [facility] Appointment Type:NM Myocard Spect Multi Rest/Stress - R Appointment Date:12/20/2023 02:30:00 PM Scheduled Provider: [facility] Appointment Type:NM Myocard Spect MultiRest/Stress-Stre Appointment Date:12/20/2023 03:30:00 PM Scheduled Provider: [facility] Appointment Type:NM Myocard Spect Multi Rest/Stress - S Appointment Date:12/30/2023 03:00:00 PM Scheduled Provider:Cortez Degroot MD Location:[facility] Appointment Type:FM Open Appointment Date:01/06/2024 11:00:00 AM Scheduled Provider: Location:[facility] Appointment Type:URO Nurse Visit Future Scheduled Tests Radiology* Echo Transthoracic Complete 12/19/23 * NM Myocardial Spect Rest/Stress 2 Day 12/19/23 * NM Myocardial Spect Part 2 11/28/23 * XR Chest 2 Views 11/28/23 [facility] evaluation + Plan note Future Appointments Appointment Date:01/16/2024 08:00:00 AM Scheduled Provider: [facility] Appointment Type:CV Echo Stress (FT) Appointment Date:02/03/2024 11:30:00 AM Scheduled Provider: Location:[facility] Appointment Type:URO Nurse Visit Appointment Date:03/09/2024 01:15:00 PM Scheduled Provider:Cortez Degroot MD Location:[facility] Appointment Type: Open Appointment Date:03/13/2024 01:15:00 PM Scheduled Provider:Aditya Nino MD [facility] Appointment Type:Cardiology Follow Up (FT) Future Scheduled Tests Radiology* EC Stress Echo Complete w/ Contrast 01/16/24 * NM Myocardial Spect Part 2 11/28/23 * XR Chest 2 Views 11/28/23 [facility] evaluation + Plan note Future Appointments Appointment Date:02/11/2024 01:00:00 PM Scheduled Provider: Location:[facility] Appointment Type:URO Nurse Visit Appointment Date:03/09/2024 01:15:00 PM Scheduled Provider:Cortez Degroot MD Location:[facility] Appointment Type: Open Appointment Date:03/13/2024 01:15:00 PM Scheduled Provider:Aditya Nino MD [facility] Appointment Type:Cardiology Follow Up (FT) Future Scheduled Tests Radiology* NM Myocardial Spect Part 2 11/28/23 * [facility]ments Appointment Date:03/09/2024 01:15:00 PM Scheduled Provider:Cortez Degroot MD Location:[facility] Appointment Type: Open Appointment Date:03/10/2024 01:00:00 PM Scheduled Provider: Location:[facility] Appointment Type:URO Nurse Visit Appointment Date:03/13/2024 01:15:00 PM Scheduled Provider:Aditya Nino MD [facility] Appointment Type:Cardiology Follow Up (FT) Future Scheduled Tests Radiology* NM Myocardial Spect Part 2 11/28/23 * XR Chest 2 Views 11/28/23 [facility] evaluation + Plan note Future Appointments Appointment Date:04/03/2024 01:45:00 PM Scheduled Provider:Rodolfo Alex MD [facility] Appointment Type:Cardiology Follow Up (FT) Appointment Date:04/14/2024 01:00:00 PM Scheduled Provider: Location:[facility] Appointment Type:URO Nurse Visit Appointment Date:05/11/2024 01:00:00 PM Scheduled Provider: Location:[facility] Appointment Type:FM Medicare Wellness Subsequent Appointment Date:05/11/2024 02:00:00 PM Scheduled Provider:Cortez Degroot MD Location:[facility] Appointment Type:FM Open Future Scheduled Tests Radiology* NM Myocardial Spect Part 2 11/28/23 * XR Chest 2 Views 11/28/23 [facility] evaluation + Plan note Future Appointments Appointment Date:04/14/2024 01:00:00 PM Scheduled Provider: Location:[facility] Appointment Type:URO Nurse Visit Appointment Date:05/11/2024 01:00:00 PM Scheduled Provider: Location:[facility] Appointment Type:FM Medicare Wellness Subsequent Appointment Date:05/11/2024 02:00:00 PM Scheduled Provider:Cortez Degroot MD Location:[facility] Appointment Type:FM Open Future Scheduled Tests Radiology* CV Cardiovascular 04/08/24 * NM Myocardial Spect Part 2 11/28/23 * XR Chest 2 Views 11/28/23 [facility] Future App[facility]ments Appointment Date:04/17/2024 09:00:00 AM Scheduled Provider: [facility] Appoint[facility] Type:CV Heart Cath (FT) Appointment Date:05/11/2024 01:00:00 PM Scheduled Provider: Location:[facility] Appointment Type: Medicare Wellness Subsequent Appointment Date:05/11/2024 02:00:00 PM Scheduled Provider:Cortez Degroot MD Location:[facility] Appointment Type: Open Appointment Date:05/12/2024 01:00:00 PM Scheduled Provider: Location:[facility] Appointment Type:URO Nurse Visit Future Scheduled Tests Radiology* CV Cardiovascular 04/17/24 * NM Myocardial Spect Part 2 11/28/23 * XR Chest 2 Views 11/28/23 [facility] evaluation + Plan note Future Appointments Appointment Date:05/11/2024 01:00:00 PM Scheduled Provider: Location:[facility] Appointment Type: Medicare Wellness Subsequent Appointment Date:05/11/2024 02:00:00 PM Scheduled Provider:Cortez Degroot MD Location:[facility] Appointment Type: Open Appointment Date:05/12/2024 01:00:00 PM Scheduled Provider: Location:[facility] Appointment Type:URO Nurse Visit Appointment Date:05/20/2024 09:45:00 AM Scheduled Provider:Paul Barbosa PA-C [facility] Type:Cardiology Follow Up (FT) Future Scheduled Tests Radiology* NM Myocardial Spect Part 2 11/28/23 * XR Chest 2 Views 11/28/23 [facility] Future App[facility]ments Appointment Date:05/20/2024 09:45:00 AM Scheduled Provider:Paul Barbosa PA-C [facility] Appointment Type:Cardiology Follow Up (FT) Appointment Date:06/09/2024 12:30:00 PM Scheduled Provider:ELEAZAR Luis APRN, [place] Location:[facility] Appointment Type:URO Office Visit Appointment Date:07/13/2024 01:15:00 PM Scheduled Provider:Cortez Degroot MD Location:[facility] Appointment Type: Open Appointment Date:05/10/2025 02:30:00 PM Scheduled Provider: Location:[facility] Appointment Type:FM Medicare Wellness Subsequent Future Scheduled Tests Radiology* NM Myocardial Spect Part 2 11/28/23 * XR Chest 2 Views 11/28/23 [facility] evaluation + Plan note Future Appointments Appointment Date:06/09/2024 12:30:00 PM Scheduled Provider:ELEAZAR uLis APRN, [place] Location:[facility] Appointment Type:URO Office Visit Appointment Date:07/13/2024 01:15:00 PM Scheduled Provider:Cortez Degroot MD Location:[facility] Appointment Type: Open Appointment Date:05/10/2025 02:30:00 PM Scheduled Provider: Location:[facility] Appointment Type: Medicare Wellness Subsequent Future Scheduled Tests Radiology* NM Myocardial Spect Part 2 11/28/23 * XR Chest 2 Views 11/28/23 [facility] Future Appointments Appointment Date:07/06/2024 10:00:00 AM Scheduled Provider: Location:[facility] Appointment Type:URO Nurse Visit Appointment Date:07/13/2024 01:15:00 PM Scheduled Provider:Cortez Degroot MD Location:[facility] Appointment Type: Open Appointment Date:07/31/2024 10:45:00 AM Scheduled Provider:Shahab PATTON MD Location:[facility] Appointment Type:URO Office Visit Appointment Date:05/10/2025 02:30:00 PM Scheduled Provider: Location:[facility] Appointment Type: Medicare Wellness Subsequent Future Scheduled Tests Radiology* NM Myocardial Spect Part 2 11/28/23 * XR Chest 2 Views 11/28/23 [facility] evaluation + Plan note Future Appointments Appointment Date:07/13/2024 01:15:00 PM Scheduled Provider:Cortez Degroot MD Location:[facility] Appointment Type: Open Appointment Date:07/31/2024 10:45:00 AM Scheduled Provider:Shahab PATTON MD Location:[facility] Appointment Type:URO Office Visit Appointment Date:05/10/2025 02:30:00 PM Scheduled Provider: Location:[facility] Appointment Type:FM Medicare Wellness Subsequent Future Scheduled Tests Radiology* NM Myocardial Spect Part 2 11/28/23 * XR Chest 2 Views 11/28/23 [facility] evaluation + Plan note Future Appointments Appointment Date:08/24/2024 01:00:00 PM Scheduled Provider:Cortez Degroot MD Location:[facility] Appointment Type:FM Open Appointment Date:08/31/2024 12:15:00 PM Scheduled Provider:Shahab PATTON MD Location:[facility] Appointment Type:URO Office Visit Appointment Date:05/10/2025 02:30:00 PM Scheduled Provider: Location:[facility] Appointment Type: Medicare Wellness Subsequent Future Scheduled Tests Radiology* NM Myocardial Spect Part 2 11/28/23 * XR Chest 2 Views 11/28/23 [facility] evaluation noteNo assessment information available [facility] Work Phone: Hisouvj general Narrative - Reported* Type Description Date Medical History benign prostatic hypertrophy Medical History DVT Surgical History tonsillectomy Surgical History I & D abscess Hospitalization History See Above [facility] [employer] Other Hospital course Narrative No data available for this section [facility] Hospital Discharge instructions No data available for this section [facility] progress note No data available for this section [facility] Capsearch Summary Purpose Family History No Family History Records Found Relationship Condition Age at Onset Recorded Date/T [...] content) DATE CREATED AUTHOR 05/03/2023 [facility] DATE CREATED AUTHOR AUTHOR'S ORGANIZ ATION 05/14/2024 [facility] DATE CREATED AUTHOR AUTHOR'S ORGANIZ ATION 07/10/2024 [facility] [address] [facility] DATE CREATED AUTHOR AUTHOR'S ORGANIZ ATION 08/07/2024 [facility] Patient Care team informatio n (unrecognized section and content) Team Status: Inactive Member Role Status Dates Shahab Patton MD Attending Provider Active art: July 02, 2024 End: July 02, [...] BE BASED ON THE PRIMARY CLINICAL RECORDS. [employer] provides no warranty or guarantee of the accuracy or completeness of information in this document.
--- NOTE | 2024-08-18 16:12 | ECG_ITS ---
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
--- NOTE | 2024-08-18 16:29 | ED_ITS ---
HPI - Male Genitourinary General Chief complaint: Urogenital-Male Stated complaint: Care Nurse Rn Issue Time Seen by Provider: 08/18/24 16:07 Source: patient Mode of arrival: walk-in Limitations: no limitations History of Present Illness HPI Narrative: Patient is a morbidly obese 73-year-old male who presents to the emergency department for evaluation of urinary retention. Patient was sent from the urology office locally for Singer catheter placement as he had a TURP recently and had a Singer catheter in place. Patient apparently tugged on his Singer catheter while on a lawnmower and was noted to have blood in the catheter, this was removed in the urology office and they were unable to replace it. Patient was sent to this emergency department for urology evaluation/Singer catheter placement. On arrival to the ER, triage vital signs show the patient is tachycardic, hypoxic on room air, febrile. He denies any focal medical complaints other than exertional shortness of breath for the last several days. No medications taken prior to arrival. Related Data Home Medications ?Medication ?Instructions ?Recorded ?Confirmed warfarin 5 mg tablet 5 mg PO .five days a week 07/07/23 08/01/24 oxybutynin chloride 10 mg 10 mg PO DAILY PRN urinary 11/21/23 08/01/24 tablet,extended release 24 hr frequency warfarin 2.5 mg tablet (Jantoven) 2.5 mg PO SUWE@1700 07/02/24 08/01/24 Previous Rx's ?Medication ?Instructions ?Recorded tamsulosin 0.4 mg capsule (Flomax) 0.4 mg PO DAILY #20 caps 07/07/23 Allergies Allergy/AdvReac Type Severity Reaction Status Date / Time No Known Drug Allergies Allergy Verified 08/18/24 15:58 Review of Systems ROS Constitutional Denies: fever or chills Ears, nose, mouth, and throat Denies: throat pain or nasal congestion Cardiovascular Denies: chest pain Respiratory Reports: shortness of breath; Denies: cough Gastrointestinal Denies: nausea or vomiting Integumentary/Breast Denies: rash Hematologic/Lymphatic Denies: easy bruising or easy bleeding [facility] Medical History (Updated 08/18/24 @ 18:31 by XENA Camacho) H/O deep venous thrombosis ?Z86.718 - Personal history of other venous thrombosis and embolism (ICD-10) CAD (coronary artery disease) ?I25.10 - Atherosclerotic heart disease of [place] coronary artery without angina pectoris (ICD-10) Elevated PSA ?R97.20 - Elevated prostate specific antigen [PSA] (ICD-10) Former smoker ?Z87.891 - Personal history of nicotine dependence (ICD-10) Anticoagulated ?Z79.01 - roasterman (current) use of anticoagulants (ICD-10) Deep vein thrombosis (2017) ?I82.409 - Acute embolism and thrombosis of unspecified deep veins of unspecified lower extremity (ICD-10) Heartburn ?R12 - Heartburn (ICD-10) Dyspnea on exertion ?R06.09 - Other forms of dyspnea (ICD-10) Urinary retention ?R33.9 - Retention of urine, unspecified (ICD-10) BPH with obstruction/lower urinary tract symptoms ?N40.1 - Benign prostatic hyperplasia with lower urinary tract symptoms (ICD- 10) ?N13.8 - Other obstructive and reflux uropathy (ICD-10) Surgical History (Updated 07/03/24 @ 15:14 by Shaikh Rosi MD) History of cardiac cath ?Z98.890 - Other specified postprocedural states (ICD-10) S/P cystoscopy ?Z98.890 - Other specified postprocedural states (ICD-10) History of incision and drainage ?Z98.890 - Other specified postprocedural states (ICD-10) History of tonsillectomy ?Z90.89 - Acquired absence of other organs (ICD-10) Family History (Updated 06/18/24 @ 13:51 by Jadyn Garcia RN) Other Alzheimers disease Leukemia Social History Within the past year, how often did you have a drink containing alcohol: monthly or less Smoking status: Former smoker Second hand tobacco smoke exposure: No Non-prescribed substance use: denies use Previous occupational history: retired Highest level of school completed/degree received: high school graduate Little interest or pleasure in doing things: not at all Feeling down, depressed, or hopeless: not at all Do you think of yourself as: straight/heterosexual Gender Identity: male Exam Narrative Exam Narrative: Gen.: Awake, alert, in no distress Head: Normocephalic, atraumatic ENT: Moist mucous membranes Respiratory: No respiratory distress, lungs clear bilaterally Cardio: Regular rate and rhythm Gastrointestinal: Abdomen is soft, nondistended obese and nontender Extremities: Moves extremities equally Psych: Normal mood and affect Neuro: No focal neuro deficit Skin: Warm, dry, intact Constitutional Vital Signs, click to edit/add: Last Vital Signs Temp 99.5 F 08/18/24 18:19 Pulse 99 H 08/18/24 18:19 Resp 16 08/18/24 18:19 BP 127/76 08/18/24 17:12 Pulse Ox 93 L 08/18/24 18:19 O2 Del Method Room Air 08/18/24 15:59 O2 Flow Rate 2 08/18/24 18:19 Course Vital Signs Vital signs: Vital Signs Temperature 101.5 F H 08/18/24 15:59 Pulse Rate 116 H 08/18/24 15:59 Respiratory Rate 20 08/18/24 15:59 Blood Pressure 138/84 08/18/24 15:59 Pulse Oximetry 87 L 08/18/24 15:59 Oxygen Delivery Method Room Air 08/18/24 15:59 Temperature 99.5 F 08/18/24 18:19 Pulse Rate 99 H 08/18/24 18:19 Respiratory Rate 16 08/18/24 18:19 Blood Pressure 127/76 08/18/24 17:12 Pulse Oximetry 93 L 08/18/24 18:19 Oxygen Delivery Method Room Air 08/18/24 15:59 Oxygen Delivery Flow Rate 2 08/18/24 18:19 MDM - Male Genitourinary MDM Narrative Medical decision making narrative: On arrival, the patient was noted to have unstable vital signs, he was placed in a room immediately. He denies any significant focal medical complaints other than exertional dyspnea. He was noted to be febrile, hypoxic and tachycardic. He was placed on oxygen by nasal cannula, IV was established with sepsis labs ordered. Blood cultures were obtained. I discussed the case with Dr. Kim for urology, she recommended that the emergency department staff at least attempt to place a Singer catheter. The Singer catheter was placed with a coud? catheter with no difficulty by nursing staff on the first attempt. Brown urine is draining. No significant urinary retention noted. Chest x-ray shows atelectasis versus left lower lobe infiltrate, lab studies show 1% bandemia, mild elevation of creatinine but normal BNP and troponin. Patient was treated with IV Rocephin, we will avoid Levaquin as he is on warfarin at home. Patient was evaluated by Dr. Castanon, after lengthy discussion he is agreeable to staying in the hospital for UTI, sepsis. Patient admitted to hospitalist service, stable at time of admission. SHARED APC VISIT, PHYSICIAN ATTESTATION: [id number] I performed a substantive part of the MDM during the patient?s E/M visit. I personally evaluated and examined the patient. I personally made or approved the documented management plan and acknowledge its risk of complications. Medical Records Attestation: I reviewed the patient's medical records. Lab Data Attestation: I reviewed the patient's lab results. Labs: Lab Results 08/18/24 08/18/24 08/18/24 Range/Units 16:28 16:35 16:40 WBC 11.0 (4.0-11.0) 10^3/uL RBC 5.25 (4.70-6.10) 10^6/uL Hgb 13.4 L (14.0-18.0) g/dL Hct 43.4 (42.0-54.0) % MCV 82.7 (80.0-94.0) fL MCH 25.5 L (25.9-34.0) pg MCHC 30.9 (29.9-35.2) g/dL RDW 15.9 H (11.0-15.0) % Plt Count 222 (150-450) 10^3/uL MPV 9.8 (9.5-13.5) fL Seg Neuts % (Manual) 90.0 H (43.0-75.0) Band Neutrophils % 1.0 (0-5) % Lymphocytes % (Manual) 7.0 L (20.5-60.0) % Monocytes % (Manual) 2.0 (1.7-12.0) % Eosinophils % (Manual) 0.0 L (0.9-7.0) % Basophils % (Manual) 0.0 L (0.2-2.0) % Neutrophils # (Manual) 9.90 H (1.4-6.5) 10^3/uL Band Neutrophils # 0.1 (0.0-0.3) 10^3/uL Lymphocytes # (Manual) 0.77 L (1.20-3.80) 10^3/uL Monocytes # (Manual) 0.22 L (0.30-0.80) 10^3/uL Eosinophils # (Manual) 0.00 (0.00-0.70) 10^3/uL Basophils # (Manual) 0.00 (0.00-0.10) 10^3/uL Hypochromasia 1+ Anisocytosis 1+ Microcytosis 1+ PT 19.8 H (9.0-11.6) sec INR 2.00 VBG pH 7.378 (7.330-7.430) VBG pCO2 41.1 (40.0-52.0) mmHg Sodium 127 L (136-145) mmol/L Potassium 4.4 (3.5-5.1) mmol/L Chloride 95 L (98-107) mmol/L Carbon Dioxide 24.9 (21.0-32.0) mmol/L Anion Gap 11.5 BUN 23.0 H (7.0-18.0) mg/dL Creatinine 1.69 H (0.70-1.30) mg/dL Est GFR ( Amer) 49 L (>=60) Est GFR (Non-Af Amer) 40 L (>=60) BUN/Creatinine Ratio 13.6 Glucose 170 H (74-106) mg/dL Lactate 1.9 (0.4-2.0) mmol/L Calcium 9.1 (8.5-10.1) mg/dL Total Bilirubin 0.7 (0.2-1.0) mg/dL AST 18 (15-37) U/L ALT 15 L (16-63) U/L Alkaline Phosphatase 110 (46-116) U/L Troponin I High Sens 29.0 (4.0-76.1) pg/mL NT-Pro-B Natriuret Pep 328.0 (<=900.0) pg/mL Total Protein 7.2 (6.4-8.2) g/dL Albumin 2.9 L (3.4-5.0) g/dL Globulin 4.3 g/dL Albumin/Globulin Ratio 0.7 Urine Color Brown A (YELLOW) Urine Clarity Cloudy A (CLEAR) Urine pH Color interference A (5.0-9.0) Ur Specific Gray [address] 1.015 (1.005-1.025) Urine Protein Color interference A (NEG/TRACE) mg/dL Urine Glucose (UA) Color interference A (NEGATIVE) mg/dL Urine Ketones Color interference A (NEGATIVE) mg/dL Urine Occult Blood Color interference A (NEGATIVE) Urine Nitrite Color interference A (NEGATIVE) Urine Bilirubin Color interference A (NEGATIVE) Urine Urobilinogen Color interference A (0.2-1.0) EU/dL Ur Leukocyte Esterase Color interference A (NEGATIVE) Urine RBC 75-100 A (0-2) #/HPF Urine WBC 20-50 A (NONE SEEN) #/HPF Ur Squamous Epith Cells Few A (NONE/RARE) #/LPF Urine Crystals None seen (None Seen) #/HPF Urine Bacteria Large A (NONE SEEN) #/HPF Urine Casts None seen (NONE SEEN) #/LPF Urine Mucus None seen (NONE SEEN) Ur Culture Indicated? Yes SARS-CoV-2 Ag (CV2AG) Negative (NEGATIVE) Imaging Data Chest x-ray: Attestation: I have reviewed the pertinent imaging results. Radiologist's impression: ITS Impressions Chest X-Ray 08/18/24 16:53 Impression: 1. Cardiac enlargement. 2. Atelectasis and or infiltrate in the left lower lobe. 3. Small left effusion. Electronically authenticated by: GT MAJANO Date: 08/18/2024 17:09 Discharge Plan Discharge Chief Complaint: Urogenital-Male Clinical Impression: Urinary tract infection, Sepsis, Hypoxia, Left lower lobe pulmonary infiltrate, Encounter for Singer catheter replacement Patient Disposition: Admitted As Inpatient Time of Disposition Decision: 18:30 Prescriptions / Home Meds: No Action oxybutynin chloride 10 mg tablet extended release 24hr 10 mg PO DAILY PRN (Reason: urinary frequency) warfarin 5 mg tablet 5 mg PO .five days a week Rx Instructions: MON, , , SAT AND SATURDAY tamsulosin [Flomax] 0.4 mg capsule 0.4 mg PO DAILY Qty: 20 0RF warfarin [Jantoven] 2.5 mg tablet 2.5 mg PO SUWE@1700 Rx Instructions: TWO DAYS A WEEK, SATURDAY AND Print Language: Prydeinig Referrals: LISA DAVIES [Primary Care Provider] - 1 week
[2024-08-18 16:53] LABS: Hematocrit 43.4 % (42.0-54.0); Hemoglobin 13.4 g/dL (14.0-18.0); Mean Corpuscular HGB Conc 30.9 g/dL (29.9-35.2); Mean Corpuscular Hemoglobin 25.5 pg (25.9-34.0); Mean Corpuscular Volume 82.7 fL (80.0-94.0); Mean Platelet Volume 9.8 fL (9.5-13.5); Platelet Count 222 10^3/uL (150-450); Red Blood Count 5.25 10^6/uL (4.70-6.10); Red Cell Distribution Width 15.9 % (11.0-15.0)
--- NOTE | 2024-08-18 16:53 | XR_ITS ---
The [address] [address] Patient Name: EUGENIA WOODSON MRN: [id number] date: 1950 Sex: M Assigned Patient Location: ER Current Patient Location: ER Accession/Order Number: [id number] Exam Date: 08/18/2024 16:50 Report Date: 08/18/2024 17:09 At the request of: ALANA BALDWIN Procedure: XR chest 1V EXAM: XR chest 1V HISTORY: . Shortness of breath . COMPARISON: 07/03/2024 TECHNIQUE: Single view of the chest. FINDINGS: Heart is slightly enlarged. Vascularity is unremarkable. Right lung is unremarkable. There is atelectasis and or infiltrate in the left lower lobe. Left upper lobe is unremarkable. There is blunting of left cost phrenic angle suggesting a small left effusion. EKG leads overlie the chest. XR/XR chest 1V Impression: 1. Cardiac enlargement. 2. Atelectasis and or infiltrate in the left lower lobe. 3. Small left effusion. Electronically authenticated by: GT MAJANO Date: 08/18/2024 17:09
[2024-08-18 16:56] LABS: PCO2 VBG 41.1 mmHg (40.0-52.0); pH VBG 7.378 (7.330-7.430)
[2024-08-18] MEDS: 0.9 % SODIUM CHLORIDE 1,000 ML 500 ML IV ×2 (17:03→20:07)
[2024-08-18 17:04] LABS: Bilirubin Urine COLOR INTERFERENCE (NEGATIVE); Blood Urine COLOR INTERFERENCE (NEGATIVE); Clarity Urine CLOUDY (CLEAR); Color Urine BROWN (YELLOW); Glucose Urine UA COLOR INTERFERENCE mg/dL (NEGATIVE); Ketones Urine COLOR INTERFERENCE mg/dL (NEGATIVE); Leukocyte Esterase Urine COLOR INTERFERENCE (NEGATIVE); Nitrite Urine COLOR INTERFERENCE (NEGATIVE); Protein Urine COLOR INTERFERENCE mg/dL (NEG/TRACE); Specific Gravity Urine 1.015 (1.005-1.025); Urine Microscopic Indicated YES; Urobilinogen Urine COLOR INTERFERENCE EU/dL (0.2-1.0); pH Urine COLOR INTERFERENCE (5.0-9.0)
[2024-08-18] MEDS: ACETAMINOPHEN 500 MG TABLET 1000 MG PO (17:04)
[2024-08-18] MEDS: LIDOCAINE 2% JELLY 10 ML UR (17:04)
[2024-08-18 17:06] LABS: Prothrombin Time 19.8 sec (9.0-11.6)
[2024-08-18 17:06] LABS: Internal Control Within Normal Limits; SARS-CoV-2 Ag NEGATIVE (NEGATIVE)
[2024-08-18 17:13] LABS: Bacteria Urine LARGE #/HPF (NONE SEEN); Cast Seen? NONE SEEN #/LPF (NONE SEEN); Crystals Seen? None Seen #/HPF (None Seen); Mucus Urine NONE SEEN (NONE SEEN); RBC Urine 75-100 #/HPF (0-2); Squamous Epithelial Cell Urine FEW #/LPF (NONE/RARE); Urine Culture Indicated YES; WBC Urine 20-50 #/HPF (NONE SEEN)
[2024-08-18 17:13] LABS: Alanine Aminotransferase 15 U/L (16-63); Albumin Globulin Ratio 0.7; Albumin Level 2.9 g/dL (3.4-5.0); Alkaline Phosphatase 110 U/L (46-116); Anion Gap 11.5; Aspartate Amino Transferase 18 U/L (15-37); BUN Creatinine Ratio 13.6; Bilirubin Total 0.7 mg/dL (0.2-1.0); Calcium 9.1 mg/dL (8.5-10.1); Carbon Dioxide 24.9 mmol/L (21.0-32.0); Chloride 95 mmol/L (98-107); Estimated GFR (African America 49 (>=60); Estimated GFR (Non-African Ame 40 (>=60); Globulin 4.3 g/dL; Glucose 170 mg/dL (74-106); Potassium 4.4 mmol/L (3.5-5.1); Sodium 127 mmol/L (136-145); Total Protein 7.2 g/dL (6.4-8.2)
[2024-08-18 17:15] LABS: Lactate/Lactic Acid 1.9 mmol/L (0.4-2.0)
[2024-08-18 17:21] LABS: Anisocytosis 1+; Band Neutrophils Absolute 0.1 10^3/uL (0.0-0.3); Hypochromasia 1+; Lymphocytes Absolute Manual 0.77 10^3/uL (1.20-3.80); Microcytosis 1+; Monocytes Absolute Manual 0.22 10^3/uL (0.30-0.80)
[2024-08-18] MEDS: CEFTRIAXONE 2,000 MG in 0.9 % SODIUM CHLORIDE 100 ML 200 MG IV (17:33)
--- OUTSIDE RECORDS SUMMARY | 2024-08-18 18:46 | XMS_ITS | CCD ---
Author Organization [facility] Care Team Providers Care Roll Grinder Name Role Phone REQUEST, DR NONE LISTED [...] Unavailable PATTON, Shahab Carrasquillo Attending Unavailable PATTON, Sahhab Carrasquillo Attending Unavailable JENN, Shahab Carrasquillo Attending [...] Attending Unavailable ESPERANZA LIVE Attending Unavailable MD Shhaab Patton Attending Provider Shahab Patton Attending Unavailable PattonShahab Admitting Unavailable PATTON, Shahab R Attending Unavailable PATTON, Shahab R Attending Unavailable OrzechRae Attending Unavailable Paul Barbosa Attending Unavailable NONE, XXXX Referring Unavailable Aditya Nino Admitting Unavaila ble Christkina, Aditya Orta Attending Unavaila ble Aditya Nino Referring Unavaila ble Cortez Degroot Admitting Unavailable Shahab PATTON Attending Unavailable Cortez Degroot Attending Unavailable oCrtez Degroot Attending Unavailable Cortez Degroot Attending Unavailable Shahab PATTON Attending Unavailable Medications Current Medications Medication Drug Class(es) Dates Sig (Normalized) Sig (Original) cephalexin 500 mg oral capsule (2 sources) Cephalosporin Antibacterial Start: 08-12-2023 take 1 capsule by mouth every eight hours Cephalexin 500 MG 1 capsule Orally tid for 7 days Jul, Active Start: 04-27-2016 take 1 capsule by [facility] twice daily Keflex 500 MG 1 [...] TID, # 30 tab(s), Refills(s) 3, Pharmacy: [facility]/pharmacy #[id number], 173, cm, 05/20/24 10:19:00 EDT, Height/Length Dosing, 154.2, kg, 05/20/24 10:19:00 EDT, Weight Dosing Start Date: 07/06/24 Status: Ordered Start: 04-14-2024 oxybutynin 5 m g Tab See Instructions, PRN for urinary discomfort, 1 tab po q 6 hrs PRN bladder spasms/leaking around [place], up to TID, # 30 tab(s), Refills(s) 3, Pharmacy: [facility]/pharmacy #[id number], 180, cm, 04/14/24 12:37:00 EDT, Height/Length Dosing, 154.3, kg, 04/14/24 12:37:00 EDT, Weight Dosing Start Date: 04/14/24 Status: Ordered Start: 10-08-2023 oxybutynin 5 m g Tab See Instructions, PRN for urinary discomfort, 1 tab po q 6 hrs PRN bladder spasms/leaking around [place], up to TID, # 30 tab(s), Refills(s) 3, Pharmacy: [facility]/pharmacy #[id number], 180, cm, 10/08/23 12:12:00 EST, Height/Length [...] CLINIC, # 90 tab(s), Refills(s) 3, Pharmacy: [facility] STORE [id number], 180, cm, 12/30/23 15:09:00 EST, Height/Length Dosing, [...] procedure, # 2 tab(s), Refills(s) 0, Pharmacy: [facility]/pharmacy #[id number], 180, cm, 08/05/23 12:26:00 EDT, Height/Length [...] Coronary atherosclerosis; 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: [Atherosclerotic heart disease of [place] coronary artery without angina pectoris] Onset: 05-20-2024 [...] Onset: 03-23-2023 Episodic Other aftercare (1 source) [facility]PC (current) use of anticoagulants; 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: [[facility] CURRNT USE ANTICOAGULANTS] Onset: 04-24-2023 Episodic Other aftercare (5 sources) Long-term current use of anticoagulant; 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 Take jghb-bsx-rnuofmr and prescription medicines only as told by [...] keep your urine pale yellow. ? Take toyh-vkn-pwwjdvt or prescription medicines. ? Eat foods that are high in fiber, such as beans, whole grains, and fresh fruits and vegeta (more content not included)... Normal [facility] Urology Office/Clinic Noteon 07-31-2024 Urology Office/Clinic Note [...] Retention of urine, unspecified) Pt presented to [facility] ER 07/07/23 for retention. Pt was [...] -F/u in 1 month 3. 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 [2] Follow-up With When Contact Information JENN GUERIN, Shahab Carrasquillo, UR [facility] [address], [facility] [place] [address]- [phone] Additional Instructions: 1 month Patient Education Transurethral [...] drinks/episode ma (more content not included)... Normal [facility] Comment on above: Result Comment: Elec tronically Signed By: Shahab PATTON MD\.br\Date and Time Signed: 07/31/24 11:41 EDT\.br\Electronically Co-Signed By: Elizabeth Greenberg\.br\Date and Time Co-Signed: 07/31/24 11:39 EDT [facility] 07-28-20 [facility] Case Information Case Priority: None Programs: -- Referral Source: Poem Writer Referral Reason: Care coordination Case Type: Transition [...] see TCM note. Created By: Titus Tamayo [facility] 07-20-20 [facility] Case Information Case Priority: None Programs: -- Referral Source: Poem Writer Referral Reason: Care coordination Case Type: Transition [...] see TCM note. Created By: Titus Tamayo [facility] Ambulatory Visit Summaryon 0 07-13-2024 Ambulatory Visit [...] Shahab PATTON MD Where: [facility] of [address] [address]- Saturday 1:00 PM EDT With: Zane GUERIN, Cortez Erwin Where: [address] [address]- Saturday 2:30 PM EDT With: Where: [address] [address]- Medications What How Much When Instructions Unchanged [...] for choosing us for your care. Normal [facility] Family Medicine Office/Clini c Noteon 07-13-2024 Family Medicine Office/Clinic Note Family Medicine Office/Clinic Note HPI Staff Eugenia is a 73 year old male presenting for [facility] hospital follow up (per Titus) TCM: Hospital: [facility] Admission date: 07/02/24 Discharge date: 07/03/24 the [...] with hypoxia) Will order PFTs to the [facility]. Will look for COPD. This is [...] Father. Immunizations Vaccine Date Status SARS-CoV-2 (COVID-19) mRNAMUL.ORD![id number] 12/13/2022 Recorded SARS-CoV-2 (COVID-19) mRNA BNT-162b2 vax 10/30/2021 Recorded SARS-CoV-2 (COVID-19) mRNA BNT-162b2 vax 02/14/2021 Recorded SARS-CoV-2 (COVID-19) mRNA BNT-162b2 vax 01/23/2021 Recorded Normal [facility] Comment on above: Result Comment: Elec [...] EDT With: Zane GUERIN, Cortez Erwin Where: [address] [address]- Saturday 10:45 AM EDT With: Shahab PATTON MD Where: [facility] [address] [place] [address]- Saturday 2:30 PM EDT With: Where: [address] [address]- Medications What How Much When Instructions Unchanged [...] for choosing us for your care. Normal [facility] Case Information Case Priority: None Programs: -- Referral Source: Poem Writer Referral Reason: Care coordination Case Type: Transition [...] Care Plan Progress Note Admit Date: 07/02/24 [facility] Date of Discharge: 07/03/24 Follow-up appointment [...] patient reach out to med management at [facility] and see if sooner INR needed [...] note. Created By: Titus Tamayo [facility] Pathology Request for Lab Co rpon 07-02-2024 Pathology Request for Lab [place] Normal [facility] Comment on above: Order Comment: PATHO LOGY PROSTATE SPECIMEN Result Comment: See report. Scanned copy available in EMR. PERFORMED BY: [place] [address] PATHOLOGIST PRODUCE SORTER SHARI MARTINEZ M.D. Performed By: #### P ATH TO [facility] #### [place] [id number] [facility] Ambulatory Visit Summaryon 0 06-09-2024 [...] AM EDT With: Where: [facility] Invalid Interpretation Code [address] [place] [address]- \.br\ Saturday 10:45 AM EDT \.br\ With: JENN GUERIN, Shahab Carrasquillo\.br\ Where: [facility] Consent for Treatmenton 04-26 Consent for Treatment [id number]#1 .00TIFF Normal [facility] Formson 05-20-2024 Forms [id number]# 1.00TIFF [facility] Heart and Vascular Office/Cl inic Noteon 05-20-2024 [...] no rash or concerning lesions Cardiac Diagnostics [facility] with Dr. Nino on 04/17/2024: LMT: [...] alternate imaging modality. Assessment/Plan 1. CAD in [place] artery (I25.10: Atherosclerotic heart disease of [place] coronary artery without angina pectoris) Patient did [...] and clif (more content not included)... Normal [facility] Comment on above: Result Comment: Elec tronically Signed By: Paul Barbosa PA-C\Date and Time Signed: 05/20/24 10:42 EDT Physician Orderon 05-20-2024 Physician Order [id number]# 1.00TIFF Normal [facility] Coding Queryon 05-15-2024 Coding Query - From: [...] was not done, I put an addendum [facility] Coding Summary.on 05-15-2024 Coding Summary. RHYXEdze07JMi9vPx+PG h lYWQ+KY1XZFFaH90yzMCh uT8uG9RTVHzDTacdNTIKB SdEMpIbgaDiSB7taKBvJK Ju IC8+AV4dNCUpFwskfICxa 2J5qDD5M11moy1tFPhksS V3IDOqLdKuvbxfl0oenJx 6IDcuNmluOyBt UOHtnN18HFW7mV80Ny93t APldMPxr1rieWt7FdQsCY ZdHWF8zPdwPEpiy3MdSZZ qQ21emAOya1V4 HFVivAslyOReHvAnmIG5n Z8sOLtphaxgd4bmahaxDx j9jl13yWLvb9B1nBX9W3F axwG7UTBhmVOj OpcavRUQtM0zuyblk5typ uhsRuWyUMAiANk5LDt1EM YcvFntTpCnCX07LMM8ZBK dzcOtA0DiEJDl tKdwKqV4j3X3Xs2DQ4OPA tdsQ3PXXYOSUCuqyMC+PC 98fj47I7FxEglgKwq7DPI xQWG9eOV1dK1i PMOxMTkni0O2rWI5Q4Djo sJaqb6xv9ltNOUwXPwtT8 5wfHSqx9S9XVCbbKE7EDV ogRhgDcVazF73 Oyc+HZUfzNexj8TtWebrl 0qkq8ickEq0WhggTGPyow NsvAblKQX0g6JbBy2cRUW wyQH1vUL3dB4e VaAoZrJ0SLqmE477WdDpw XBzObfzN97jP1FmsFS+PH SpDjp2ZNSgoVegDV8vI5D hZGRpbmctbGVm bUzrUV8aFFQufddiROOvv C0tNAYhI7j0DuHxBvB1XV azK7KrHWHkpkbvSz14xS0 tSxJdHdV2DAyo S4KbwdW0RUUhoYBcWUqfC BH0D56mq0B5NKMuEQFuGK B9cTY6eR1jqHemjxczoDA mdDsgdmVydGlj FIbpCOkfE322BKYecGqvM kNvZGluZyBEYXRlOiAgMD YvMjEvMjAyNDwvdGQ+PHR iHCL4iHfiTXTr jDKfQXhoXk9mwYrecLobT R1sYQQaigloKCYseB8wLO QalQBemDxbDO6nBLXclrh cl384ZcZbMKL3 APCnmQLbP6PkqA5kImRsP YKhNXZeI4MbjBDvYCneA2 72ODahNlJ7WNPzdhZdI1M sLWFsaWduOiB0 s1B8Uk2Vy9VuzrktK0Bbd VVzSuZzFednSZc6U9VeXl wvdHI+JE79VTCnQS86RPh 3RCB4qQghMLzw IMKyR3DhyS2fQpJcSLYsV GRkOyc+PHRhYmxlIHdpZH RoPScxMDAlJyBzdHlsZT0 aJc8yLFLvJJAd uBqszJBpJvWrx4caOOCeI ZdnTD5ioWniX6KsnXZ0ZH Hpq5q5Vw70L86kE4PicUH +KTUxrUG6gNJ6 qU9yBuHtYyZ7CEryQ301P sHegGZcWqsqm1nnn3ngdI t9LoJ2GZLmvuUtdEesYKQ 3w6ZuFj50E27q IHdpZHRoPSIxNSUiIHZhb Squsr5guH1zZm1+PGNvbC C7wZQ9mG4oFhBwBcZ7AJl cZ273RmWtcEMf Oslxx4oet2oavXr5HnGwY ABwejUheUkbKQF8s5WsBd 63O4YqrDsmy9LmOij9fj0 1uNAes3S8dEC2 C3OwRUEuqceryDYdoIgcP N3hPXMwvbiiNYTydN4mXT PdN2c1VkRaVrJ6FStxR3W wtsO7BVDikRQc LYBidQFOpK1qmqcnb5xna zkdAqYzDNItAZw9FCk6NY YamZlsNdSuUIY7NdJ7JAN 3lWHyxL7kaSnt nkzmbZ8wUni+JRC2bSOoy MKQCQ2uPaijyNN+PHRkIH X1sOyqSBrwNWCjmJ2kXBN nI8v7JiNtXxE6 VJtiT7TexuI5ZOVkvZBbQ OHneZTQwJ1lajlep2mubi ekGrUmDJSbZCm9IQw3WNN saWduOiBsZWZ0 WuN5MXT1dMBznX1dzYimp kfrnY5rThg+QmlydGggRG W4TMh5N2RcToi4MDHqfNb bTX2dwKZcGLnr Ql8aeQvrpTxtYI2oAFWrs gsbb708RgSao1slLKHuuG XtCPteOKQ3E69ot6N9IDD zPBOoQIN8kIX5 eW7exSvpbvvowWDmeFpkl uAhoZzrOYcvMIkrX513TV GlnSdcHuUqBIz8I6QfOjr 7FHRcaNpbWO5p rQJoNNcpNq4brXaphAceY E5yPHOwqiwrh672QfAaa9 jdLSDfyBGdBXaaWRZ4L11 oe4U1RIGjURBo GQG8nZB4cU2alWqyxflyl GVmdDsgdmVydGljYWwtYW umU796LKLfnYcoIlCnbLi 8J4RzQfr7NYJy nOjvHT3gzQPcZNalGr7cn GfqzInlZT3cDPTvnnfsx1 36XtKca8tcYVHxpXHdCYm eWJF1D07kb3N9 QVZxNGGkTIZ5kOE1zT1dc GlnbjogbGVmdDsgdmVydG dwVRgzGQhwG017EPIdoFs nPlBhdGllbnQg DRpcXLg7R1KjYfuzkPU+P Q87NKMlLP71oIXeaXZda7 reoNa6OaQwKGVdGOR4fAq fKPnuk0GsDQXw N98dyYTgu7T0SXPskGewh EOeQwWblLE6yM5vWRmioj twz7tepblwHjqen6mxqb1 1sO18R03rOLuu ZHRoPSIzMCUiIHZhbGlnb j3poM3zRt4+NLTalTC0lC J2fJ5eFTQsKpE9VSymU22 9InRvcCIvPjxj c6ukh5nixRm1HpB3WTVrx qLdkCgdWQH2w8NdPe56U5 9sIHdpZHRoPSIyMCUiIHZ zvTrvjh1ciD1e Ii8+IUMksBV8cXI9dC4eN aJbDwR9CJquK834EvIxmP NpMkobB85qM4SoqDF+PHR xQqh2TNMcxClr QC7btRZgJYtvHm0uTVW9C iMdVqWxGNtrF3KpLASmjm ucurgncPD6QAJkSWJitQ9 4Bi1ajMogPNXy jENQpG2ohlwpn0xejrgvM iFpUAAcSNx6KMz9FRSoyX hwOuCpWXB8OpY3BIM3uQX ijL3alGtizatu dL9bP8RoCOSpunbbVz98e H6yJdKhQhX8KQbvAtf+Sk 9ITlNPTiwgSkFNRVMgRDw vdGQ+PHRkIHN0 qEteBWdbLJRxhJ1eCLNjT 7d7TdMwNmW9ZAbuO8KmLP ZysddqBf74yR4rAaWrIzM 9JGxnL4SpscH9 OKHtiBQcZVfyVBB8S37qf 2J2RHEaMSRkWLS5cEQ0bT 1hbGlnbjogbGVmdDsgdmV ydGljYWwtYWxp V318EQDkmDutMvTvLoV5W jX2ZZF5E1TjZmt8NSBseS jfSD7pdGEsUAdsVe1qaSc ghDqvTY4sGSQj wiwkKCPdsO7mNZTxtLWac EidPQ3aGXIfxtcsf115Wc EkQJO8FXNrnBInL3VgvI6 yOiAjMDAwMDAw U0BxvAJeJMgkW322IZtnP wB1FWQkbjVxX4FnTVSvmQ uhCzK7q4A5Kp93URJTGCF yczwvdGQ+PHRk ZYN4hHauXInoQEWhpN3mZ DOtS2u7JgQwYtR4JXzsP1 NdVOXynogyYq52tY0mOhC hRqV5RIkoA4Ol gpF0PUHxeMNoJOhzFIP4Z 29lm3W5KPQwRITlCYO8bG R9tL5syJwwvuyzqJHskGv gdmVydGljYWwt AUcvF834TDLwbExwZe5ea JR3P0HgGib6AUHosZnpVN 8elHBaKPhpHb4vzRtneWm rVZ2fJDUzanuq BCWbzH1vISUvaUCwoIsxP S5kUTMvtewlq774WhHhCK M7IUNtqQOtV7JtiZ2zWxR mECYgOLPqZ2Tk gTLyGDcxT124RIopKgD1R AZomrFwV3EbBZZvqNtfNx Y7f1L3Jd1RrIH6gQJ5p7O 7Z3LzuCGmAVP4 VFQ6omfveju9B1RvZaave HI+CH67SIBcXA71vVEhoA Dyy4vadFg5IgSaHGTfDWN 1hDxmIZsbp2If BIApD45lxQJgq8W7NEKbx WmcfQZsVeNknZM1jN3rOO ofoimwl9afspnkNemgp6f urd25oH89Z42t IHdpZHRoPSIzMCUiIHZhb Ttydp6oqS2lYk3+PGNvbC S4gUX3uH3dPyFqSdO7UXs uQ646WrAjvOZy Weihs2cqt3buqAz8SjVbX UEzsxYcoYdmPHH8t6ImFr 70G07wGJzjMPRtFBYwMKJ cVKNnxFhpcf0n kY3yOm0+ZY3xa7habc10y D48dHI+ACWrGDY8wAmcME oxULOydY5lCYloOlH1KOQ jGvTbxC01aULn OAyjPx9xhVdjcMujPR6mY VDjvuscv522ImAwq1zlZI WjbVMsGArxWQB1T54bm2V 8RGEhZHDjDWK6 kOW8aN6zlDhtngbemGOmk DsgdmVydGljYWwtYWxpZ2 83TGEutLaqZmCmcURbW1w femUAHT3dQjag dGQ+YPTkXIQ4sXwsBNqkU KMitJ0qYLWxU1f0YnIhWg T9OHbsD7MtfyG1AYGhxFQ qKPZrnTTOzO5n gyjnx6nosoomDeTpTREaM Fr9TKg3UCKwuZhnFbPnZH H2OsT6KUU9jJKseX7eaRl vuassdU8eJwd+ RklOOjwvdGQ+VGGnZSR3h HmmNOokRHXzuC3zYEUqV2 a5JeZiWjB5LAauA1FgdkV 6IGJvbGQgMTBw zRNRqP9sntzbj2udlhjmW yTuMYOdOBz0SWa2VFDzqO yzVyRdQXB3AvD4JEA5aVY ybM0crTiteonu zP7pVht+TVJOOjwvdGQ+P JSjYJH7rKolFEvsNIVfvW 1aYUAvG8x9NnBfVhG5AWq zK3LjisK4WUHo pYBmLDVnvZZMwO9kidyws 9tvqoldNwWcYYDfMYy1SN t4RUXyvPfuFrXxRKG2QaK 9XTV3fACisU0l gIrctfkgsT2wAkj+UGF5Z BA1KH44XG58R8FpRzoxsO FibGU+PHRhYmxlIHdpZHR oPScxMDAlJyBz aHbrVV0gBt5uI (more content not included)... Normal [facility] Operative Reporton 4 Operative Report Indication [...] consent the patient was brought to the Organ Teacher where sterile prep and drape were administered in usual fashion. Anesthesia was obtained in the right wrist with lidocaine after administration of conscious sedation. A 5/6 slender Terumo sheath was placed in the right radial artery without complication. Nitroglycerin and nicardipine were given via the sheath and heparin was given intravenously. A 5 [place] Islander JACKE catheter was advanced and selectively engaged [...] inaccurate, left ventriculography was not done. Normal [facility] Comment on above: Result Comment: Elec tronically [...] APRN, [place] X Where: [facility] Invalid Interpretation Code [address] [place] [address]- \.br\ Saturday 2:30 PM EDT \.br\ With:\.br\ Where: [facility] Family Medicine Office/Clini c Noteon 05-12-2024 Family [...] Comments : Wears corrective lenses, goes to [facility] for eye exams. Akua Metz LPN Barry [...] Akua Metz LPN - 05/11/2024 13:00 EDT [facility] (more content not included)... [facility] Comment on above: Result Comment: Elec tronically Signed By: Cortez Degroot MD\.br\Date and Time Signed: 05/12/24 12:44 EDT\.br\Electronically Co-Signed By: Akua Metz LPN\.br\Date and Time Co-Signed: 05/11/24 14:08 EDT [facility] 05-12-2024 Lab Reports [id number]#1 .00TIFF [facility] Screenson 05-12-2024 Screens [id number]#1. 00TIFF [facility] Ambulatory Visit Summaryon 0 05-11-2024 Ambulatory Visit [...] PM EDT With: Where: [facility] Invalid Interpretation Code [address] [place] [address]- \.br\ Saturday 2:30 PM EDT \.br\ With:\.br\ Where: [facility] Ambulatory Visit Summary EUGENIA GIL :1950 Visit [...] PM EDT With: Where: [facility] Invalid Interpretation Code [address] [place] [address]- \.br\ Saturday 2:30 PM EDT \.br\ With:\.br\ Where: [facility] Family Medicine Office/Clini c Noteon 05-11-2024 Family [...] Father. Immunizations Vaccine Date Status SARS-CoV-2 (COVID-19) mRNAMUL.ORD![id number] 12/13/2022 Recorded SARS-CoV-2 (COVID-19) mRNA BNT-162b2 vax 10/30/2021 Recorded SARS-CoV-2 (COVID-19) mRNA BNT-162b2 vax 02/14/2021 Recorded SARS-CoV-2 (COVID-19) mRNA BNT-162b2 vax 01/23/2021 Recorded Normal [facility] Comment on above: Result Comment: Elec [...] provider. Document Revised: 09/28/2021 Document Reviewed: 09/28/2021 [employer] Patient Education ? 2022 [employer]. Oncology Lung Cancer Screening A lung cancer screening is a test that checks for lung cancer when there are no symptoms or history of that disease. The s (more content not included)... Normal [facility] Cardiovascular Reporton 0 Cardiovascular Report [id number]# 2.00TIFF [facility] Consent for Procedure/Surger yon 04-21-2024 Consent for Procedure/Surgery [id number] #1.00TIFF [facility] Discharge Instructionson Discharge Instructions [id number] #1.00TIFF [facility] COAGULATIONOrdered By: Jered Perla on 04-17-2024 aPTT Coag (PPP) [Time] 35.1 s Normal 25.1 - 36.5 second(s) [facility] Auto Coag Comment on above: Interpretive Data: [...] the same coagulation reagent and instrumentation as [facility]. Currently there are no coagulation studies available worldwide for children to 14 days, and no normal ranges. Heparin therapeutic range (represented by Anti-Factor Xa activity of 0.2 - 0.4 U/mL) corresponds to PTT of 56.6 - 109.0 sec. INR Coag (PPP) [Relative time] 1.04 {INR} Invalid Interpretation Code [facility] Auto Coag Comment on above: Interpretive Data: I NR results are specifically intended to assess patients stabilized on long-term Anticoagulation therapy suggested INR s Less Intensive Anticoagulation 2.0 3.0 Conventional Range 3.0 4.5 PT Coag (PPP) [Time] 11.7 s Normal 9.4 - 1 2.5 second(s) [facility] Auto Coag Comment on above: Interpretive Data: [...] the same coagulation reagent and instrumentation as [facility]. Currently there are no coagulation studies available worldwide for children to 14 days, and no normal ranges. Consent for Treatmenton 03-26 Consent for Treatment [id number]#1 .00TIFF Normal [facility] Inpatient Clinical Summaryon 04-17-2024 Inpatient Clinical Summary [address] [address] Clinical Summary Person Information: Name: EUGENIA GIL Age: 73 Years : 1950 Sex: Male PCP: Cortez Degroot MD Marital Status: Single Race: White Ethnicity: Non- or Language: Paraguayan Visit Id: Visit Reason: R07.9 R06.09 R06.02 Z01.818 Speciality: Acuity: Enc Type: Ambulatory/Same Day Surgery Med Service: Cardiovascular Arrival: 04/17/2024 06:57:58 Discharge: Dispo Type: Address: [address] [place] [address] [phone] Provider Notes: Diagnosis: Problems Active Knee pain [...] Follow up: With: Address: When: Paul Barbosa [address] [place] [address] [phone] Business (1) 05/20/2024 9:45 AM Type Location Start Finish State FM Medicare Wellness Subsequent [facility] [place] 05/11/2024 1:00 PM 05/11/2024 2:00 PM Confirmed FM Open [facility] [place] 05/11/2024 2:00 PM 05/11/2024 2:15 PM Confirmed URO Nurse Visit [facility] [place] 05/12/2024 1:00 PM 05/12/2024 1:15 PM Confirmed Cardiology Follow Up (FT) [facility] 05/20/2024 9:45 AM 05/20/2024 10:00 AM Confirmed Patient Education Information: Cardiovascular Discharge Instructions - Revised 11/16/15 (CUSTOM) [facility] Inpatient Clinical Summary [place] [address] Clinical Summary Person Information: Name: EUGENIA GIL Age: 73 Years : 1950 Sex: Male PCP: Cortez Degroot MD Marital Status: Single Race: White Ethnicity: Non- or Language: Paraguayan Visit Id: Visit Reason: R07.9 R06.09 R06.02 Z01.818 Speciality: Acuity: Enc Type: Ambulatory/Same Day Surgery Med Service: Cardiovascular Arrival: 04/17/2024 06:57:58 Discharge: Dispo Type: Address: [address] [place] [phone] Provider Notes: Diagnosis: Problems Active Knee pain [...] Start Finish State FM Medicare Wellness Subsequent [facility] [place] 05/11/2024 1:00 PM 05/11/2024 2:00 PM Confirmed FM Open [facility] [place] 05/11/2024 2:00 PM 05/11/2024 2:15 PM Confirmed URO Nurse Visit [facility] [place] 05/12/2024 1:00 PM 05/12/2024 1:15 PM Confirmed Patient Education Information: Cardiovascular Discharge Instructions - Revised 11/16/15 (CUSTOM) [facility] Inpatient Patient Summaryon 04-17-2024 Inpatient Patient Summary [address] [address] Patient Discharge Instructions PERSON INFORMATION Name: EUGENIA [...] Follow up: With: Address: When: Paul Barbosa [address] [place] [id number] [phone] Business (1) 05/20/2024 9:45 AM In the event that this physician does not participate in your insurance network, please consult with your insurance company to find a nearby participating provider. Type Location Start Finish State FM Medicare Wellness Subsequent [facility] 05/11/2024 1:00 PM 05/11/2024 2:00 PM Confirmed FM Open [facility] [place] 05/11/2024 2:00 PM 05/11/2024 2:15 PM Confirmed URO Nurse Visit [facility] [place] 05/12/2024 1:00 PM 05/12/2024 1:15 PM Confirmed [...] IRASEMA Day Comment: PATIENT EDUCATION INFORMATION Instructions: [place], [place] DISCHARGE INSTRUCTIONS Diet: ? Resume pre-procedure [...] smoking f (more content not included)... Normal [facility] Inpatient Patient Summary [address] [address] Patient Discharge Instructions PERSON INFORMATION [...] a nearby participating provider. Type Location Start [facility] Medicare Wellness Subsequent [facility] 05/11/2024 1:00 PM 05/11/2024 2:00 PM Confirmed FM Open [facility] 05/11/2024 2:00 PM 05/11/2024 2:15 PM Confirmed URO Nurse Visit [facility] 05/12/2024 1:00 PM 05/12/2024 1:15 PM [...] MEDICATION MANAGEMENT CLINIC. Refills: 3. Pharmacy Information: [facility] Barb Comment: PATIENT EDUCATION INFORMATION Instructions: [place], [place] DISCHARGE INSTRUCTIONS Diet: ? Resume pre-procedure [...] you are interested in smoking cessation, contact [facility] at [phone], ext. [phone]. ? In the event you are unable to reach your physician, please (more content not included)... Normal [facility] PT & PTTon 04-17-2024 aPTT Coag (PPP) [Time] 35.1 second(s) Normal 25.1-36.5 [facility] Comment on above: Order Comment: if on [...] the same coagulation reagent and instrumentation as [facility] [facility] Currently there are no coagulation studies available worldwide for children to 14 days, and no normal ranges. Heparin therapeutic range (represented by Anti-Factor Xa activity of 0.2 - 0.4 U/mL) corresponds to PTT of 56.6 - 109.0 sec. Performed By: #### 1 [id number] ####[facility] [address] [place] [address] INR Coag (PPP) [Relative time] 1.04 {INR} Invalid Interpretation Code [facility] Comment on above: Order Comment: if on Coumadin. Draw day of procedure and notify MD if abnormal Result Comment: INR results are specifically intended to assess patients stabilized on long-term Anticoagulation therapy suggested INR?s ?Less Intensive Anticoagulation? 2.0 ? 3.0 Conventional Range 3.0 ? 4.5 Performed By: #### 1 [id number] ####[facility] [address] [place] [address] PT Coag (PPP) [Time] 11.7 second(s) Normal 9.4-12.5 [facility] Comment on above: Order Comment: if on [...] the same coagulation reagent and instrumentation as [facility]. Currently there are no coagulation studies available worldwide for children to 14 days, and no normal ranges. Performed By: #### 1 [id number] ####[facility] [address] [place] [address] Patient Education - Texton 0 04-17-2024 Patient Education - [place] DISCHARGE INSTRUCTIONS Diet: ? Resume pre-procedure [...] you are interested in smoking cessation, contact [facility] at [phone], ext. [phone]. ? In the event you are unable to reach your physician, please call [facility] at [phone] and the notching press operator will assist you. Discharging Nurse Physician Date/Time Patient or Responsible Democrat Revised 07-02, 03-03, 12-07, 11-08 Normal [facility] Patient Education - Text [place], [place] DISCHARGE INSTRUCTIONS Diet: ? Resume pre-procedure [...] you are interested in smoking cessation, contact [facility] at [phone], ext. [phone]. ? In the event you are unable to reach your physician, please call [facility] at [phone] and the notching press operator will assist you. Discharging Nurse Physician Date/Time Patient or Responsible Democrat Revised 07-02, 03-03, 12-07, 11-08 Normal [facility] Patient Educationon 04-14-20 Patient Education Urology Benign [...] Follow these instructions at home: ? Take ropq-lbb-hqlijsl and prescription medicines only as told by [...] the medicine (more content not included)... Normal [facility] Urology Office/Clinic Noteon 04-14-2024 Urology Office/Clinic Note Chief Complaint 5 week cath change w/ Rae HPI Staff Patient here today for 5 week cath change w/ Rae History of Present Illness I have reviewed and verified the staff HPI to be accurate for this encounter. Portions of this record may have been created with voice recognition artificial intelligence software, specifically [employer], [employer] and or [employer]. Substitutions may have occurred due to the [...] Retention of urine, unspecified) Pt presented to [facility] ER 07/07/23 for retention. Pt was [...] Hg (Most Recent) 3074F 4. Anticoagulated (Z79.01: FPC (current) use of anticoagulants) on warfarin Stress test x 2 with inconclusive results. Patient states that he is scheduled for cardiac cath next week. Other obstructive and reflux uropathy (N13.8: Other obstructive and reflux uropathy) Orders: oxybutynin, See Instructions, PRN for urinary discomfort, 1 tab po q 6 hrs PRN bladder spasms/leaking around hinton, up to TID, # 30 tab(s), Refills(s) 3, [id number] 180, cm, 10/08/23 12:12:00 EST, Height/Length Dosing, 123, kg, 10/08/23 12:12:0... oxybutynin, See Instructions, PRN for urinary discomfort, 1 tab po q 6 hrs PRN bladder spasms/leaking around hinton, up to TID, # 30 tab(s), Refills(s) 3, Pharmacy: [facility]/pharmacy #[id number], 180, cm, 04/14/24 12:37:00 EDT, Height/Length Dosing, 154.3, kg, 04/14/24 12:37... Follow-up With When Contact Information ELEAZAR Luis APRN, Rae X, FAM, URL Additional Instructions: [...] times per (more content not included)... Normal [facility] Comment on above: Result Comment: Elec tronically Signed By: ELEAZAR Luis APRN, [place] X\.shruthi\Date and Time Signed: 04/14/24 13:24 EDT Insurance Correspondenceon 0 04-08-2024 Insurance Correspondence [id number]# 1.00TIFF Normal [facility] Progress Note-Physicianon Progress Note-Physician [id number]# 1.00TIFF Normal [facility] BMPon 04-07-2024 Anion gap [Moles/Vol] 13 mmol/L Normal 6-16 [facility] Comment on above: Performed By: #### 2 114601, [id number], [id number] ####[facility] [address] [place] [address] Calcium [Mass/Vol] 9.6 mg/dL Normal 8.9-11.1 [facility] Comment on above: Performed By: #### 2 316673, [id number], 8344603 ####[facility] [address] [place] [address] Chloride [Moles/Vol] 102 mmol/L Normal 101-[address] [facility] Comment on above: Performed By: #### 2 920877, 00299567, 9371405 ####[facility] [address] [place] [address] CO2 [Moles/Vol] 26 mmol/L Normal 21-31 [facility] Comment on above: Performed By: #### 2 947578, 68492035, 1403096 ####[facility] [address] [place] [address] Creatinine [Mass/Vol] 1.2 mg/dL Normal 0.5-1.3 [facility] Comment on above: Performed By: #### 2 247193, 33702208, 7051010 ####[facility] [address] [place] [address] Glucose [Mass/Vol] 123 mg/dL Normal 55-199 [facility] Comment on above: Performed By: #### 2 482475, 48861151, 5314520 ####[address] [address] Potassium [Moles/Vol] 4.5 mmol/L Normal 3.5-5.3 [facility] Comment on above: Performed By: #### 2 676331, 54666542, 8009589 ####[address] [address] Sodium [Moles/Vol] 136 mmol/L Normal 135-145 [facility] Comment on above: Performed By: #### 2 699455, 45755269, 7682977 ####[address] [address] Urea nitrogen [Mass/Vol] 18 mg/dL Normal 5-21 [facility] Comment on above: Performed By: #### 2 777651, 02277310, 4706167 ####[address] [address] Urea nitrogen/Creatinine [Mass ratio] 15 No Units Normal 10-20 [facility] Comment on above: Performed By: #### 2 346704, 09083412, 4237654 ####[address] [address] CBC w/ Auto Diffon 4 Basophils/100 WBC (Bld) 1.0 % Normal 0.0-2.0 [facility] Comment on above: Performed By: #### 2 715548, 58129769, 3093482 ####[address] [address] Basophils/Leukocytes Auto (Bld) [Pure # fraction] 0.1 E9/L Normal 0.0-0.2 [facility] Comment on above: Performed By: #### 2 828031, 00088433, 4880050 ####[address] [address] Eosinophils (Bld) [#/Vol] 0.2 E9/L Normal 0.0-0.5 [facility] Comment on above: Performed By: #### 2 938114, 11496345, 5065498 ####[address] [address] Eosinophils/100 WBC (Bld) 2.2 % Normal 0.0-8.0 [facility] Comment on above: Performed By: #### 2 964643, 16668032, 1468375 ####[address] [address] Erythrocyte distribution width (RBC) [Ratio] 17.1 % High 10.9-14.2 [facility] Comment on above: Performed By: #### 2 239416, 79003410, 9167125 ####[address] [address] Hematocrit (Bld) [Volume fraction] 45.3 % Normal 37.7-49.0 [facility] Comment on above: Performed By: #### 2 503747, 00516627, 2367839 ####[address] [address] Hemoglobin (Bld) [Mass/Vol] 14.5 g/dL Normal 13.5-17.5 [facility] Comment on above: Performed By: #### 2 402326, 29049150, 9530950 ####[address] [address] Lymphocytes (Bld) [#/Vol] 1.2 E9/L Normal 1.0-4.0 [facility] Comment on above: Performed By: #### 2 400425, 25644582, 5144715 ####[address] [address] Lymphocytes/100 WBC (Bld) 16.1 % Normal 14.0-50.0 [facility] Comment on above: Performed By: #### 2 127439, 65542418, 9879726 ####[address] [address] MCH (RBC) [Entitic mass] 25.7 pg Low 27.0-34.0 [facility] Comment on above: Performed By: #### 2 936329, 59803979, 1327609 ####[address] [address] MCHC (RBC) [Mass/Vol] 32.0 g/dL Normal 31.4-36.0 [facility] Comment on above: Performed By: #### 2 150615, 09090580, 9709538 ####[address] [address] MCV (RBC) [Entitic vol] 80.4 fL Normal 80.0-100.0 [facility] Comment on above: Performed By: #### 2 833274, 00140374, 4822042 ####[address] [address] Monocytes (Bld) [#/Vol] 0.8 E9/L Normal 0.2-1.0 [facility] Comment on above: Performed By: #### 2 683035, 56420748, 1365419 ####[address] [address] Neutrophils (Bld) [#/Vol] 5.2 E9/L Normal 2.0-7.5 [facility] Comment on above: Performed By: #### 2 580071, 83824926, 0413589 ####[address] [address] Neutrophils/100 WBC (Bld) 70.3 % Normal 36.0-75.0 [facility] Comment on above: Performed By: #### 2 284004, 87068712, 4532562 ####[address] [address] Platelet mean volume (Bld) [Entitic vol] 7.9 fL Normal 6.4-10.8 [facility] Comment on above: Performed By: #### 2 851173, 12276900, 9811535 ####[facility] [address] [place] [address] Platelets (Bld) [#/Vol] 242.0 E9/L Normal 150.0-500.0 [facility] Comment on above: Performed By: #### 2 440833, 25504536, 3956708 ####[facility] [address] [place] [address] RBC (Bld) [#/Vol] 5.6 E12/L Normal 4.3-5.9 [facility] Comment on above: Performed By: #### 2 567179, 92113478, 9498022 ####[facility] [address] [place] [address] WBC corrected for nucl RBC Auto (Bld) [#/Vol] 7.4 E9/L Normal 4.0-11.0 [facility] Comment on above: Performed By: #### 2 803495, 43207222, 2483868 ####[facility] [address] [place] [address] CHEMISTRYOrdered By: SYSTEM SYSTEM on 04-07-2024 Anion [...] Treatmenton 03-25 Consent for Treatment [id number]#1 .00TIFF Normal [facility] Consent for Treatment [id number]#1 .00TIFF Normal [facility] HEMATOLOGYOrdered By: SYSTEM SYSTEM on 04-07-2024 Basophils/100 [...] with voice recognition artificial intelligence software, specifically [employer], [employer] and or [employer]. Substitutions may have occurred due to the [...] tobacco co (more content not included)... Normal [facility] Comment on above: Result Comment: Elec tronically Signed By: Chelsey ODOM, Paul Perez\.br\Date and Time Signed: 04/07/24 14:52 EDT eGFRon 04-07-2024 eGFR 64 mL/min/1.73 m2 Normal >=59 [facility] Comment on above: Order Comment: Order added by Discern Expert. Performed By: #### 2 683098, 02192590, 8498492 ####[facility] [address] [place] [address] Physician Referralon 024 Physician Referral [id number]#1 .00TIFF Normal [facility] Lab Reportson 03-30-2024 Lab Reports [id number]#1 .00TIFF Normal [facility] Ambulatory Visit Summaryon 0 03-09-2024 Ambulatory Visit [...] Hg (Most Recent) 3075F 6. Anticoagulated (Z79.01: FPC (current) use of anticoagulants) - Pt will [...] No q (more content not included)... Normal [facility] Comment on above: Result Comment: Elec tronically Signed By: Zane GUERIN, Cortez Coybr\Date and Time Signed: 04/15/24 15:08 EDT Lab Reportson 02-13-2024 Lab Reports [id number]#1 .00TIFF Normal [facility] Ambulatory Visit Summaryon 0 02-11-2024 Ambulatory Visit [...] EDT With: Zane GUERIN, Cortez Erwin Where: [facility] Normal [address] [place] [address]- \.br\ Saturday 1:15 PM EDT \.br\ With: Mica GUERIN, Aditya Orta\.br\ Where: [facility]\.br\ Medications\.br\ What How Much When Instructions\.br \ [...] for choosing us for your care.\.br\ \.br\ [facility] Stress EKG Tracingson 2023 Stress EKG Tracings [id number]#1. 00TIFF Normal [facility] Consent for Treatmenton 01-23 Consent for Treatment [id number]#1 .00TIFF Normal [facility] Lab Reportson 01-07-2024 Lab Reports [id number]#1 .00TIFF Normal [facility] Ambulatory Visit Summaryon 0 12-30-2023 Ambulatory Visit [...] AM EST With: Where: [facility] Normal [address] [place] [address]- \.br\ Saturday 1:15 PM EDT \.br\ With: Mica GUERIN, Aditya Orta\.br\ Where: [facility]\.br\ Medications\.br\ What How Much When Instructions\.br \ [...] knee.\.br\ General instructions\.br \ ? \.br\ Take rqaj-lmh-kjlciem and prescription medicines only as told by [...] provider.\.br\ Document Revised: 04/26/2021 Document Reviewed: 04/26/2021 [employer] Patient Education ? 2022 [employer].br\ \.br\ [facility] Family Medicine Office/Clini c Noteon 12-30-2023 [...] have the treadmill test now?? And if food safety manager has to clear him why does he [...] Father. Immunizations Vaccine Date Status SARS-CoV-2 (COVID-19) [id number] 12/13/2022 Recorded SARS-CoV-2 (COVID-19) mRNA BNT-162b2 vax 10/30/2021 Recorded SARS-CoV-2 (COVID-19) mRNA BNT-162b2 vax 02/14/2021 Recorded SARS-CoV-2 (COVID-19) mRNA BNT-162b2 vax 01/23/2021 Recorded Normal [facility] Comment on above: Result Comment: Elec [...] under your knee. General instructions ? Take hgkz-mqc-aogwqnw and prescription medicines only as told by [...] provider. Document Revised: 04/26/2021 Document Reviewed: 04/26/2021 [employer] Patient Education ? 2022 [employer]. [facility] Pre-Certification Formon Pre-Certification Form [id number]#1 .00TIFF [facility] Insurance Correspondenceon 0 12-25-2023 Insurance Correspondence [id number]# 1.00TIFF [facility] NM Myocardial Spect Part 2on 01-30-2024 NM [...] Stress Dose (mCi Tc99M Cardiolite): 29.1 Normal [facility] Stress EKG Tracingson 2023 Stress EKG Tracings [id number]# 1.00TIFF Normal [facility] Consent for Treatmenton 11-26 Consent for Treatment [id number]#1 .00TIFF Normal [facility] Heart and Vascular Office/Cl inic Noteon 12-19-2023 [...] cardiac issues and has not seen a food safety manager in the past. He occasionally experiences a [...] with voice recognition artificial intelligence software, specifically [employer], [employer] and or [employer]. Substitutions may have occurred due to the inherent limitations of voice recognition and artificial intelligence software. Documentation services were performed after patient or guardian consented to allow [employer] to record this visit. YENI hemodialysis patient care specialist and provider reviewed before signing. YENI: [...] Known A (more content not included)... Normal [facility] Comment on above: Result Comment: Elec tronically Signed By: Aditya Nino MD\.br\Date and Time Signed: 12/19/23 18:28 EST\.br\Electronically Co-Signed By: Mare Cherry\.br\Date and Time Co-Signed: 12/13/23 12:06 EST Physician Orderon 12-13-2023 Physician Order [id number]# 1.00TIFF Normal [facility] Ambulatory Visit Summaryon 0 12-09-2023 Ambulatory Visit [...] With: Aditya Nino MD Where: [facility] 2023 8:00 AM EST With: Where: Cardiovascular Services 2023 9:00 AM EST With: Where: Nuclear Medicine 2023 10:00 AM EST With: Where: Nuclear Medicine Saturday 2:30 PM EST With: Where: Nuclear Medicine Saturday 3:30 PM EST With: Where: Nuclear Medicine Saturday 3:00 PM EST With: Cortez Degroot MD Where: [facility] Normal [address] [place] [address]- \.br\ Medications\.br\ What How Much When Instructions\.br [...] for choosing us for your care.\.br\ \.br\ [facility] Insurance Correspondenceon 0 12-03-2023 Insurance Correspondence [id number]#1 .00TIFF Normal [facility] Family Medicine Office/Clini c Noteon 12-02-2023 Family Medicine Office/Clinic Note HPI Staff Kline is a 73 year old male presenting for surgical clearance Surgery scheduled for 12/05/23 w/ Dr Patton for a TURP at [facility] PAT testing is 11/21/23 flu: due [...] 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 Portions of this record may have been created with voice recognition artificial intelligence software, specifically [employer], [employer] and or [employer]. Substitutions may have occurred due to the inherent limitations of voice recognition and artificial intelligence software. ATTESTATION: Documentation services were performed after patient or guardian consented to allow [employer] to record this visit. YENI hemodialysis patient care specialist and provider reviewed before signing. YENI: Dario Cool. Follow-up N (more content not included)... Normal [facility] Comment on above: Result Comment: Elec tronically [...] AM EST With: Where: [facility] Invalid Interpretation Code [address] [place] [address] [place] [address]- \.br\ Saturday 3:00 PM EST \.br\ With: Cortez Degroot MD\.br\ Where: [facility] Lab Reportson 11-28-2023 Lab Reports [id number]#1 .00TIFF Normal [facility] Patient Educationon 11-28-19 24 Patient Education Nutrition [...] numbers. This can be done either in [place] ([place] or metric measurements. Note that charts and online BMI calculators are available to help you find your BMI quickly and easily without having to do these calculations yourself. To calculate your BMI in [place] ([place] measurements: 1. Measure your weight in [...] for Disease Control and Prevention: www.cdc.gov ? [place] Heart Association: www.heart.org ? National Heart, Lung, and Blood [place]: www.nhlbi.nih.gov Summary ? Body mass index (BMI) is a number that is calculated from a person's weight and height. ? BMI may help estimate how much of a person's weight is composed of fat. BMI can help identify those who may be at higher risk for certain medical problems. ? BMI can be measured using [place] measurements or metric measurements. ? BMI charts are used to identify whether you are underweight, normal weight, overweight, or obese. This information is not intended to replace advice given to you by your health care provider. Make sure you discuss any questions you have with your health care provider. Document Revised: 08/03/2020 Document Reviewed: 06/10/2020 [employer] Patient Education ? 2022 [employer] [facility] Physician Referralon 024 Physician Referral [id number] #1.00TIFF Normal [facility] ECG 12-Leadon 11-22-2023 ECG 12-Lead [id number]#1 .00TIFF [facility] ECG 12-Lead [id number]#1 .00TIFF [facility] Lab Reportson 11-22-2023 Lab Reports [id number]#1 .00TIFF [facility] Lab Reports [id number]#1 .[facility] [id number]#1 .00TIFF [facility] Ambulatory Visit Summaryon 1 01-06-2023 Ambulatory Visit [...] PM EST With: Cortez Degroot MD Where: [facility] Invalid Interpretation Code [address] [place] [address] [place] [address]- \.br\ Saturday 2:15 PM EST \.br\ With: Shahab PATTON MD\.br\ Where: [facility] Consultation Noteon 10-23-20 Consultation Note [id number]# [facility] for Procedure/Surger yon 10-22-2023 Consent for Procedure/Surgery [id number]#1 .[facility] Ambulatory Visit Summaryon 1 12-08-2022 Ambulatory Visit [...] Shahab PATTON MD Where: [facility] Barb Castro [facility] Patient Educationon 10-08-20 Patient Education Urology Transurethral [...] including vitamins, herbs, eye drops, creams, and rokx-dhf-pcultgy medicines. ? Any problems you or family [...] tells you to take them. ? Taking tcbh-sok-ojpkxrg medicines, vitamins, herbs, and supplements. Surgery safety [...] health care (more content not included)... Normal [facility] Urology Office/Clinic Noteon 10-08-2023 Urology Office/Clinic Note [...] Retention of urine, unspecified) Pt presented to [facility] ER 07/07/23 for retention. Pt was [...] E&M of Est. Patient Moderate 30-39 Min 28021 3. 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 Patient Moderate 30-39 Min 34842 4. 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 Patient Moderate 30-39 Min 66197 Orders: oxybutynin, See Instructions, PRN for urinary discomfort, 1 tab po q 6 hrs PRN bladder spasms/leaking around hinton, up to TID, # 30 tab(s), Refills(s) 3, Pharmacy: [facility]/pharmacy #[id number], 180, cm, 10/08/23 12:12:00 EST, Height/Length Dosing, 123, kg, 10/08/23 12:12:0... Follow-up With When Contact Information JENN GUERIN, Shahab Carrasquillo, URL [facility] [place] [address]- Additional Instructions: Schedule TURP Patient Education Transurethral [...] Former s (more content not included)... Normal [facility] Comment on above: Result Comment: Elec tronically [...] including vitamins, herbs, eye drops, creams, and hfly-twp-alcsxdv medicines. ? Any problems you or family [...] tells you to take them. ? Taking jdek-svb-aizdgeq medicines, vitamins, herbs, and supplements. Surgery safety [...] health care (more content not included)... Normal [facility] Consent for Procedure/Surger yon 09-03-2023 Consent for Procedure/Surgery [id number]#1 .00TIFF Normal [facility] Consent for Treatmenton 08-25 Consent for Treatment [id number]#1 .00TIFF Normal [facility] IntraOperative Documentson 1 IntraOperative Documents [id number]#1 .00TIFF Normal [facility] IntraOperative Documents [id number]#1 .00TIFF Normal [facility] Main OR Intraoperative Recor don 09-03-2023 Main OR Intraoperative Record IntraOp Document Type FTURO Summary Primary Physician: Shahab PATTON MD Finalized Date/Time: 09/03/23 16:31:34 Pt. Name: EUGENIA GILO.B./Sex: 1950 Male Med Rec #: [id number] Physician: Shahab PATTON MD Financial #: [id number] Pt. Type: O Room/Bed: / Admit/Disch: 09/03/23 14:52:15 - Institution: Case Times FTURO Entry 1 Patient Times In Room 09/03/23 16:12:00 Out Room 09/03/23 16:31:00 Procedure Times Start 09/03/23 16:17:00 Stop 09/03/23 16:24:00 Anesthesia Times Last Modified By: Faiza Figueroa RN 09/03/23 16:31:29 General Comments: 20F COUDE CATH PLACED. LIVE MARION Case Attendance FTURO Entry 1 Entry 2 Entry 3 Case Attendee JENN UGERIN, Shahab Hemphill DOUBLE END TENONER OPERATOR, Faiza Okeefe RN Role Performed Surgeon - Primary Scrub - Primary It Teacher - Primary Time In 09/03/23 16:12:00 09/03/23 [...] By: Faiza Figueroa RN 09/03/23 16:31 Normal [facility] Main OR Preoperative Recordo n 09-03-2023 Main OR Preoperative Record Holding Area Document Type FTURO Summary Primary Physician: Shahab PATTON MD Finalized Date/Time: 09/03/23 16:08:42 Pt. Name: EUGENIA GIL D.O.B./Sex: 1950 Male Med Rec #: [id number] Physician: Shahab PATTON MD Financial #: [id number] Pt. Type: O Room/Bed: / Admit/Disch: 09/03/23 [...] pain in left knee Skin Integrity Intact, [place], Warm, & Dry Vitals - EU Blood Pressure 144/84 Pulse 92 bpm Respirations 20 br/min SPO2 95 % RN Reviewed Yes Last Modified By: Faiza Figueroa RN 09/03/23 16:08:41 General Comments: Temp 97.3 Finalized By: Faiza Figueroa RN Document Signatures Signed By: Ruby Flores LPN 09/03/23 16:02 Faiza Figueroa RN 09/03/23 16:08 Normal [facility] Operative Reporton Operative Report Patient: EUGENIA GIL [...] it for now. We replaced an 18 [place] catheter. He will get that changed in a month. He will call us if he is interested in going forward with a TURP.. [facility] Comment on above: Result Comment: Elec tronically Signed By: JENN GUERIN, Shahab Carrasquillo\.br\Date and Time Signed: 09/03/23 16:35 EDT Patient Educationon 09-03-20 Patient Education [facility] Ambulatory Visit Summaryon 0 08-12-2023 Ambulatory Visit [...] Saturday 8:15 AM EDT Where: [facility] Saturday 3:00 PM EDT Where: [facility] Saturday 3:45 PM EDT Where: [facility] Saturday 1:00 PM EST Where: [facility] Lab Reportson 08-11-2023 Lab Reports [id number] .00CD:127 [facility] Formson 08-06-2023 Forms [id number]. 00CD:127 [facility] Lab Reportson 08-06-2023 Lab Reports [id number] .00CD:127 [facility] Ambulatory Visit Summaryon 0 08-05-2023 Ambulatory Visit Summary EUGENIA GIL :1950 Visit Date:08/05/2023 Ambulatory Visit Instructions Your Diagnosis Urinary retention Prostate cancer screening Anticoagulated Tests Performed Urnls Dip Stick Auto w/o Microscopy POC 15877 Your Care Team Attending Physician - JENN [...] [facility] [address] , [place] [phone] Medications What How Much When Instructions Unchanged tamsulosin (tamsulosin 0.4 mg Cap) 1 Capsules By Mouth Every day Unchanged warfarin By Mouth Every day Contact prescribing physician if questions or concerns Test Results Urnls Dip Stick Auto w/o Microscopy POC 36373 (08/05/2023) Bilirubin Urine Dipstick - Negative Blood Urine Dipstick - 2+ Moderate Glucose Urine Dipstick - Negative Ketones Urine Dipstick - Negative Leukocytes Urine Dipstick - 1+ Small Nitrite Urine Dipstick - Negative Protein Urine Dipstick - 3+ (300 mg/dl) Specific Harper Urine Dipstick - 1.025 Urine Appearance Urine Dipstick - Clear Urine Color Urine Dipstick - Yellow Urobilinogen Urine Dipstick - Normal 0.2-1 EU/dl pH Urine Dipstick - 7 Allergies No Known Allergies Problems Ongoing - Any problem that you are currently receiving treatment for. Anticoagulated Prostate cancer screening Urinary retention Normal [facility] ED Note-Physicianon 08-05-20 ED Note-Physician [id number] .00CD:127 Normal [facility] Patient Educationon 08-05-20 Patient Education Urology Urodynamic [...] including vitamins, herbs, eye drops, creams, and fxgm-fgn-jcoltms medicines. ? Whether you are or may [...] be (more content not included)... 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 Pt prestent to [facility] ER 07/07/23 for retention. Pt was [...] Will order one now. 3. Anticoagulated (Z79.01: FPC (current) use of anticoagulants) On Warfarin. 4. Former smoker (Z87.891: Personal history of nicotine dependence) Increased risk for urothelial cancer. Follow-up With When Contact Information JENN GUERIN, Shahab Carrasquillo, URL [facility] [address], [place] [phone] Additional Instructions: sched Cysto/UDS PSA Patient Education [...] Allergies Immunizations Vaccine Date Status SARS-CoV-2 (COVID-19) [id number].ORD![id number] 12/13/2022 Recorded SARS-CoV-2 (COVID-19) mRNA BNT-162b2 vax 10/30/2021 Recorded SARS-CoV-2 (COVID-19) mRNA BNT-162b2 vax 02/14/2021 Recorded SARS-CoV-2 (COVID-19) mRNA BNT-162b2 vax 01/23/2021 Recorded Lab Results Ambulatory Point of Care Results Bilirubin Urine Dipstick: Negative (08/05/23 12:18:00) Blood Urine Dipstick: 2+ Moderate (08/05/23 12:18:00) Glucose Urine Dipstick: Negative (08/05/23 12:18:00) Ketones Urine Dipstick: Negative (08/05/23 12:18:00) L (more content not included)... Normal [facility] Comment on above: Result Comment: Elec tronically Signed By: Andra Jamil\.br\Date and Time Signed: 08/05/23 13:29 EDT Vital Signs Date Time Vital Sign Value Performing Clinician Faci lity 07-31-2024 10:41-0400 Body temperature 98.6 [degF] Shahab PATTON [facility] 07-31-2024 10:41-0400 Diastolic blood pressure 85 mm[Hg] Shahab PATTON [facility] 07-31-2024 10:41-0400 Heart rate 77 /min Shahab PATTON [facility] 07-31-2024 10:41-0400 Respiratory rate 16 /min Shahab PATTON [facility] 07-31-2024 10:41-0400 Systolic blood pressure 136 mm[Hg] Shahab PATTON [facility] 05-20-2024 10:07-0400 Blood Pressure Location Paul Barbosa [facility] 05-20-2024 10:07-0400 Diastolic blood pressure 79 mm[Hg] Paul Barbosa [facility] 05-20-2024 10:07-0400 Heart rate 76 /min Paul Barbosa [facility] 05-20-2024 10:07-0400 Respiratory rate 16 /min Paul Barbosa [facility] 05-20-2024 10:07-0400 SaO2% (BldA) [Mass fraction] 89 % Paul Barbosa [facility] 05-20-2024 10:07-0400 Systolic blood pressure 132 mm[Hg] Paul Barbosa [facility] 04-14-2024 12:31-0400 Blood Pressure Location Rae Orzech [facility] 04-14-2024 12:31-0400 Body temperature 98.06 [degF] Rae Orzech [facility] 04-14-2024 12:31-0400 Diastolic blood pressure 77 mm[Hg] Rae Orzech [facility] 04-14-2024 12:31-0400 Heart rate 97 /min Rae Orzech [facility] 04-14-2024 12:31-0400 Respiratory rate 16 /min Rae Orzech [facility] 04-14-2024 12:31-0400 Systolic blood pressure 125 mm[Hg] Rae Korysharona [facility] 04-07-2024 14:03-0400 Blood Pressure Location Paul Barbosa [facility] 04-07-2024 14:03-0400 Diastolic blood pressure 84 mm[Hg] Paul Barbosa [facility] 04-07-2024 14:03-0400 Heart rate 83 /min Paul Barbosa [facility] 04-07-2024 14:03-0400 Systolic blood pressure 130 mm[Hg] Paul Barbosa [facility] 12-13-2023 10:31-0500 Blood Pressure Location Aditya Nino [facility] 12-13-2023 10:31-0500 Diastolic blood pressure 80 mm[Hg] Aditya Nino [facility] 12-13-2023 10:31-0500 Heart rate 86 /min Aditya Nino [facility] 12-13-2023 10:31-0500 SaO2% (BldA) [Mass fraction] 91 % Aditya Nino [facility] 12-13-2023 10:31-0500 Systolic blood pressure 120 mm[Hg] Aditya Nino [facility] 08-12-2023 13:50-0400 Body height 180.34 cm Beth Joseph Other [facility] Other 08-12-2023 13:50-0400 Body mass index (BMI) [Ratio] 45.07 kg/m2 Beth Joseph Other [facility] Other 08-12-2023 13:50-0400 Body temperature 96.6 [degF] Beth Joseph Other [facility] Other 08-12-2023 13:50-0400 Body weight 146.6 kg Beth Joseph Other [facility] Other 08-12-2023 13:50-0400 Diastolic blood pressure 82 mm[Hg] Beth Joseph Other [facility] Other 08-12-2023 13:50-0400 Respiratory rate 18 /min Beth Joseph Other [facility] Other 08-12-2023 13:50-0400 SaO2% (BldA) [Mass fraction] 97 % Beth Joseph Other [facility] Other 08-12-2023 13:50-0400 Systolic blood pressure 142 mm[Hg] Beth Joseph Other [facility] Other 08-05-2023 12:21-0400 Blood Pressure Location Shahab PATTON [facility] 08-05-2023 12:21-0400 Body temperature 97.52 [degF] Shahab PATTON [facility] 08-05-2023 12:21-0400 Diastolic blood pressure 88 mm[Hg] Shahab PATTON [facility] 08-05-2023 12:21-0400 Heart rate 88 /min Shahab PATTON [facility] 08-05-2023 12:21-0400 Systolic blood pressure 132 mm[Hg] Shahab PATTON [facility] Encounters Encounter Date Encounter Type Care Provider Facility Start: 05-10-2025 ambulatory Cortez Degroot Facility :[facility] Start: 08-31-2024 ambulatory Shahab Foreign PATTON Facili ty: [facility] Start: 08-24-2024 ambulatory Cortez Degroot Facility :[facility] Start: 07-31-2024 End: 07-31-2024 ambulatory Shahab Foreign PATTON Facility: [facility] Start: 07-31-2024 End: 07-31-2024 Patient encounter procedure Shahab PATTON [facility] Start: 07-13-2024 End: 07-13-2024 ambulatory Cortez Degroot Facility:[facility] [place] Start: 07-06-2024 End: 08-05-2024 ambulatory Cortez Degroot Facility:CD:[id number] Start: 07-06-2024 End: 07-06-2024 ambulatory Shahab PATTON Facility: [place] Start: 07-06-2024 End: 07-06-2024 Patient encounter procedure Shahab PATTON [facility] Start: 07-02-2024 End: 07-02-2024 ambulatory Shahab Patton [facility] Work Phone: Start: 07-02-2024 End: 07-02-2024 Departed Referred MD Shahab Patton Work Phone: [facility] Start: 07-02-2024 End: 07-02-2024 ambulatory Shahab PATTON Facility:CD:[id number] Start: 06-09-2024 End: 06-09-2024 ambulatory Rae Luis Facility: [facility] Start: 06-09-2024 End: 06-09-2024 Patient encounter procedure Rae X Orzech [facility] Start: 05-20-2024 End: 05-20-2024 ambulatory Paul Barbosa Facility:[facility] Start: 05-20-2024 End: 05-20-2024 Patient encounter procedure Paul Barbosa [facility] Start: 05-20-2024 End: 05-20-2024 Preprocedural examination done Paul Barbosa [facility] Start: 05-12-2024 End: 05-12-2024 ambulatory ESPERANZA LIVE Facility:[facility] Start: 05-12-2024 End: 05-12-2024 Patient encounter procedure ESPERANZA LIVE [facility] Start: 05-11-2024 End: 05-11-2024 ambulatory Cortez Degroot Facility:[facility] Start: 04-17-2024 End: 04-17-2024 Admission to same day surgery center Aditya Nino [facility] Start: 04-17-2024 End: 04-17-2024 ambulatory Aditya Nino Facility:[facility] Start: 04-14-2024 End: 04-14-2024 ambulatory Rae X Orzech Facility:[facility] Start: 04-14-2024 End: 04-14-2024 Patient encounter procedure Rae X Orzech [facility] Start: 04-07-2024 End: 04-07-2024 ambulatory Paul Barbosa Facility:[facility] Start: 04-07-2024 End: 04-07-2024 Patient encounter procedure Paul Barbosa [facility] Start: 04-07-2024 End: 04-07-2024 ambulatory XXXX NONE Facility:[facility] Start: 04-07-2024 End: 04-07-2024 Patient encounter procedure Paul Barbosa [facility] Start: 03-10-2024 End: 03-10-2024 ambulatory ESPERANZA TONYRY Facility:[facility] Start: 03-10-2024 End: 03-10-2024 Patient encounter procedure ESPERANZA LIVE [facility] Start: 03-09-2024 End: 03-09-2024 ambulatory Cortez Degroot Facility:[facility] Start: 02-11-2024 End: 02-11-2024 ambulatory Shahab PATTON Facility:[facility] Start: 02-11-2024 End: 02-11-2024 Patient encounter procedure Shahab PATTON [facility] Start: 02-06-2024 End: 02-06-2024 ambulatory Aditya Nino Facility:[facility] Start: 02-06-2024 End: 02-06-2024 Patient encounter procedure Aditya Nino [facility] Start: 01-06-2024 End: 01-06-2024 ambulatory Shahab PATTON Facility:[facility] Start: 01-06-2024 End: 01-06-2024 Patient encounter procedure Shahab PATTON [facility] Start: 12-30-2023 End: 12-30-2023 ambulatory Cortez Degroot Facility:[facility] Start: 12-26-2023 ambulatory Shahab PATTON Facility :[facility] Start: 12-19-2023 End: 03-19-2024 ambulatory Cortez Degroot Facility:[facility] Start: 12-19-2023 End: 03-19-2024 Recurring Cortez Degroot [facility] Start: 12-13-2023 End: 12-13-2023 ambulatory Cortez Degroot Facility:[facility] Start: 12-13-2023 End: 12-13-2023 Patient encounter procedure Aditya Nino [facility] Start: 12-09-2023 End: 12-09-2023 ambulatory Shahab PATTON Facility:[facility] Start: 12-09-2023 End: 12-09-2023 Patient encounter procedure Shahab PATTON [facility] Start: 12-05-2023 End: 12-05-2023 ambulatory Shahab PATTON Facility:[facility] Start: 12-05-2023 End: 12-05-2023 Off-Site Shahab PATTON [facility] Start: 11-28-2023 End: 11-28-2023 ambulatory Cortez Degroot Facility:[facility] Start: 11-05-2023 End: 11-05-2023 ambulatory Shahab PATTON [facility] Start: 10-08-2023 End: 10-08-2023 ambulatory ESPERANZA LIVE [facility] Start: 10-08-2023 End: 10-08-2023 Patient encounter procedure ESPERANZA LIVE [facility] Start: 09-03-2023 End: 09-03-2023 ambulatory Shahab PATTON Facility:[facility] Start: 08-12-2023 Office outpatient ne w 10 minutes Beth Opal [facility] Start: 08-12-2023 End: 08-12-2023 ambulatory Shahab PATTON [facility] [employer] Other Start: 08-12-2023 End: 08-12-2023 Patient encounter procedure Shahab PATTON [facility] Start: 08-05-2023 End: 08-05-2023 ambulatory Shahab PATTON Facility:[facility] Start: 08-05-2023 End: 08-05-2023 Patient encounter procedure Shahab PATTON [facility] Start: 07-11-2023 ambulatory Shahab PATTON Facility :[facility] [...] Date Care Activity Detail Author Start: 07-02-2024 [facility] Immunizations Immunization Date Immunization Notes Care Provider Fa [facility] 12-13-2022 SARS-CoV-2 (COVID-19 ) [id number].[id number] Shahab PATTON [facility] 10-30-2021 SARS-CoV-2 (COVID-19 ) mRNA BNT-162b2 vax Shahab PATTON [facility] 02-14-2021 SARS-CoV-2 (COVID-19 ) mRNA BNT-162b2 vax Shahab PATTON [facility] 01-23-2021 SARS-CoV-2 (COVID-19 ) mRNA BNT-162b2 vax Shahab PATTON [facility] Payers Date Payer Category Payer Self-pay 2022 Unknown [id number] 1959 Unknown [id number] 1950 Unknown [id number] 2.16.84 0.1.619108.3.579.2.593 1950 Unknown [id number] 2.16.84 0.1.891513.3.579.2.593 1950 Unknown [id number] 2.16.84 0.1.770008.3.579.2.593 1950 Unknown [id number] 2.16.84 0.1.181612.3.579.2.593 1950 Unknown [id number] 2.16.84 0.1.661931.3.579.2.593 1950 Unknown [id number] 2.16.84 0.1.009746.3.579.2.593 1950 Unknown [id number] 2.16.84 0.1.007737.3.579.2.593 1950 Unknown [id number] 2.16.84 0.1.796118.3.579.2.593 1950 Unknown [id number] 2.16.84 0.1.466139.3.579.2.593 1950 Unknown [id number] 2.16.84 0.1.172320.3.579.2.593 1950 Unknown [id number] 2.16.84 0.1.865651.3.579.2.593 1950 Unknown [id number] 2.16.8 40.1.673257.3.579.2.727 1950 Unknown [id number] 2.16.8 40.1.376524.3.579.2.727 1952 Unknown [id number] 2.16.8 40.1.237688.3.579.2.727 1950 Unknown [id number] 2.16.8 40.1.527699.3.579.2.727 1950 Unknown [id number] 2.16.8 40.1.834348.3.579.2.727 1950 Unknown [id number] 2.16.8 40.1.669853.3.579.2.727 1950 Unknown [id number] 2.16.8 40.1.569380.3.579.2.727 1952 Unknown [id number] 2.16.8 40.1.492824.3.579.2.727 1952 Unknown [id number] 2.16.8 40.1.890093.3.579.2.727 1952 Unknown [id number] 2.16.8 40.1.743450.3.579.2.727 1952 Unknown [id number] 2.16.8 40.1.583736.3.579.2.727 1952 Unknown [id number] 2.16.8 40.1.622626.3.579.2.727 1952 Unknown [id number] 2.16.8 40.1.885305.3.579.2.727 1952 Unknown [id number] 2.16.8 40.1.574679.3.579.2.727 1952 Unknown [id number] 2.16.8 40.1.013458.3.579.2.727 1952 Unknown [id number] 2.16.8 40.1.952109.3.579.2.727 1952 Unknown [id number] 2.16.8 40.1.948585.3.579.2.727 1952 Unknown [id number] 2.16.8 40.1.001055.3.579.2.727 1952 Unknown [id number] 2.16.8 40.1.588694.3.579.2.727 1952 Unknown [id number] 2.16.8 40.1.493408.3.579.2.727 1952 Unknown [id number] 2.16.8 40.1.303793.3.579.2.727 1952 Unknown [id number] 2.16.8 40.1.016867.3.579.2.727 1952 Unknown [id number] 2.16.8 40.1.699696.3.579.2.727 1952 Unknown [id number] 2.16.8 40.1.357250.3.579.2.727 1952 Unknown [id number] 2.16.8 40.1.993327.3.579.2.727 1952 Unknown [id number] 2.16.8 40.1.231176.3.579.2.727 1952 Unknown [id number] 2.16.8 40.1.240780.3.579.2.727 1952 Unknown [id number] 2.16.8 40.1.841385.3.579.2.727 1952 Unknown [id number] 2.16.8 40.1.379263.3.579.2.727 1952 Unknown [id number] 2.16.8 40.1.641937.3.579.2.727 1952 Unknown [id number] 2.16.8 40.1.833393.3.579.2.727 1952 Unknown [id number] 2.16.8 40.1.940973.3.579.2.727 1952 Unknown [id number] 2.16.8 40.1.285075.3.579.2.727 1950 Unknown [id number] 2.16.8 40.1.054959.3.579.2.727 1950 Unknown [id number] 2.16.8 40.1.539901.3.579.2.727 Social History Date Type Detail Facility Tobacco smoking status [facility] Sex Assigned At Male [facility] Start: 10-08-2023 End: 07-31-2024 Tobacco smoking status Ex-smoker (finding) [facility] Comment on above: Patient states he sm oked 1 PPD from 19 y.o. to 69 y.o. Start: 12-13-2023 Tobacco smoking status Former smokeless tobacco user, quit more than 30 days ago [facility] Comment on above: Patient states he sm oked 1 PPD from 19 y.o. to 69 y.o. Start: 08-12-2023 [facility] Start: 1950 Sex Assigned At Male F [facility] Functional Status Date Assessment Result Facility 07-31-2024 Functional Status N/A [facility] 05-20-2024 Functional Status N/A [facility] 04-17-2024 Functional Status N/A [facility] 04-14-2024 Functional Status N/A [facility] 04-07-2024 Functional Status No [facility] 12-13-2023 Functional Status No [facility] 10-08-2023 Functional Status N/A [facility] 08-05-2023 Functional Status N/A [facility] Clinical Notes 12-19-2019 to 07-31-2024 Note Date [...] Follow these instructions at home: Medicines Take edtk-hqg-agkstww and prescription medicines only as told by [...] to keep your urine pale yellow. Take bmsl-jpm-oyhpvjb or prescription medicines. Eat foods that are [...] provider. Document Revised: 08/07/2022 Document Reviewed: 08/07/2022 [employer] Patient Education 2023 [employer]. Follow Up Care 05/25/2024 11:59:23 With:JENN GUERIN, ALYSSA Nicholas Address: [facility] [address] , [place] [phone] When: Unknown [facility] 07-31-2024 Note Patient Education Urology [...] these instructions at home: Medicines ? Take rktk-fvs-krzdjpk and prescription medicines only as told by [...] keep your urine pale yellow. ? Take rnnx-xru-soezwym or prescription medicines. ? Eat foods that [...] Reviewed: 08/07/2022 Elsevier Patient Education ? 2023 [employer] [facility] 04-27-2024 Note Procedure LHC poss PCI via [...] Plan: Patient agrees to IV sedation plan [facility] Comment on above: Result Comment: Elec tronically Signed By: Mica GUERIN, Aditya Orta\.br\Date and Time Signed: 04/27/24 12:02 EDT 04-21-2024 Note [id number] [facility] 04-17-2024 Hospital Discharge instructions Patient Education 04/17/2024 07:44:44 Cardiovascular Discharge Instructions - Revised 11/16/15 (CUSTOM) [place], [place] DISCHARGE INSTRUCTIONS Diet: Resume pre-procedure diet. [...] hours post procedure: Actoplus MetGlucophageGlucophage XR GlucovanceAvandametFortamet Mpn-dyffmfezpFqnsgoBgcz-lqtdvqvsb GlumetzaJanumetMetaglip RiometGlycomet *Minimal pain, soreness and/or discomfort [...] you are interested in smoking cessation, contact [facility] at [phone], ext. [phone]. In the event you are unable to reach your physician, please call [place] at [phone] and the notching press operator will assist you. Discharging Nurse Physician Date/Time Patient or Responsible Democrat Revised 07-02, 03-03, 12-07, 11-08 Follow Up Care 04/08/2024 10:03:08 With:Paul Barbosa Address: [address] [place] [address] [place] [phone] Business (1) When:05/20/2024 09:45:00 [facility] 04-14-2024 Hospital Discharge instructions Patient Education [...] urethra. Follow these instructions at home: Take tvwt-vlm-omqkygg and prescription medicines only as told by [...] provider. Document Revised: 05/30/2022 Document Reviewed: 05/30/2022 [employer] Patient Education 2022 [employer]. 04/14/2024 13:24:15 Urinary Incontinence Urinary Incontinence Urinary [...] (electrical nerve stimulation). ?For women, using a nuclear medicine medical director to prevent urine leaks. This is a [...] right after experiencing incontinence. General instructions Take xgcc-hqb-izxtzzu and prescription medicines only as told by [...] important. Where to find more information [employer] [place] of Diabetes and Digestive and Kidney Diseases: www.niddk.nih.gov [employer]: www.urologyhealth.org Contact a health care [...] provider. Document Revised: 06/16/2021 Document Reviewed: 06/16/2021 [employer] Patient Education 2022 [employer]. 04/14/2024 13:24:11 Acute Urinary Retention, Male Acute [...] Follow these instructions at home: Medicines Take qrtf-twg-xxcwrlq and prescription medicines only as told by [...] provider. Document Revised: 08/02/2021 Document Reviewed: 08/02/2021 [employer] Patient Education 2022 [employer]. Follow Up Care 03/10/2024 12:55:54 With:ELEAZAR Luis APRN, Rae Schmidt, DARIUS, URL Address: When: Unknown Comments:or another BELA for cath change, 4 wks [facility] 04-14-2024 Hospital Discharge instructions Follow Up Care 04/14/2024 13:09:53 With:ESPERANZA LIVE PA-C, URL Address: [facility] [place] [address] [phone] When: Unknown [facility] 12-24-2023 Note Echocardiology Procedure Exam Date/Time Accession # Ordering Echo Transthoracic 12/19/2023 08:56 [facility] [id number] Cortez Degroot MD Complete CPT code 01156 [id number] Reason for Exam (Echo Transthoracic Complete) Shortness of breath (SOB);Z76.89 Report Version: 1 Study ID: [id number] [facility] [address] [place] [address] Adult Echocardiogram Report Name: EUGENIA GIL Study Date: 12/19/2023, 8: 13 AM Patient Location: [facility] : 1950 (MM/DD/YYYY) Gender: Male Age: 73 [...] Signed by: Aditya Nino MD Transcribed by: [facility] Technologist: O[facility] 10-08-2023 Hospital Discharge instructions Patient Education 10/08/2023 [...] including vitamins, herbs, eye drops, creams, and ehmn-qkn-nwtjkzu medicines. Any problems you or family members [...] provider tells you to take them. Taking liif-xxz-znuvlva medicines, vitamins, herbs, and supplements. Surgery safety [...] provider. Document Revised: 08/07/2022 Document Reviewed: 08/07/2022 [employer] Patient Education 2022 [employer]. Follow Up Care 08/12/2023 13:22:25 With:JENN GUERIN, Shahab Carrasquillo, URL Address: [address] [place] [address]- When: Unknown [facility] 09-03-2023 Note [id number] [facility] 08-12-2023 Evaluation note Encounter Date Diagnosis Assessment [...] Contact dermatitis home care material was printed [employer] Other 09-11-2023 Hospital Discharge instructions Patient Education [...] including vitamins, herbs, eye drops, creams, and puok-kif-dlxvqbq medicines. ?Whether you are or may be [...] provider. Document Revised: 07/25/2022 Document Reviewed: 06/16/2021 [employer] Patient Education 2022 [employer] 08/05/2023 13:14:39 Cystoscopy Cystoscopy Cystoscopy is [...] including vitamins, herbs, eye drops, creams, and icru-vxr-lmjudcb medicines. Any problems you or family members [...] provider tells you to take them. Taking omkz-nwh-aipmmjj medicines, vitamins, herbs, and supplements. Tests You [...] Follow these instructions at home: Medicines Take pcae-lmw-ahwzwsw and prescription medicines only as told by [...] provider. Document Revised: 07/25/2022 Document Reviewed: 06/23/2021 [employer] Patient Education 2022 [employer]. 08/05/2023 13:14:16 Acute Urinary Retention, Male Acute [...] Follow these instructions at home: Medicines Take mzgh-xii-svaijyb and prescription medicines only as told by [...] provider. Document Revised: 08/02/2021 Document Reviewed: 08/02/2021 [employer] Patient Education 2022 [employer]. Follow Up Care 07/11/2023 10:33:42 With:JENN GUERIN, Shahab Carrasquillo, URL Address: [facility] [address], [place] [address] [phone] When: Unknown Comments:sched Cysto/UDS [facility] 01-25-2020 Evaluation + Plan note Future Appointments Appointment Date:12/19/2023 08:00:00 AM Scheduled Provider: Location[facility] Appointment Type:CV Echo (FT) Appointment Date:12/19/2023 09:00:00 AM Scheduled Provider: [facility] Appointment Type:NM Myocard Spect Multi Rest/Stress-Res Appointment Date:12/19/2023 10:00:00 AM Scheduled Provider: [facility] Appointment Type:NM Myocard Spect Multi Rest/Stress - R Appointment Date:12/20/2023 02:30:00 PM Scheduled Provider: [facility] Appointment Type:NM Myocard Spect MultiRest/Stress-Stre Appointment Date:12/20/2023 03:30:00 PM Scheduled Provider: [facility] Appointment Type:NM Myocard Spect Multi Rest/Stress - S Appointment Date:12/30/2023 03:00:00 PM Scheduled Provider:Cortez Degroot MD Location:[facility] Appointment Type:FM Open Appointment Date:01/06/2024 11:00:00 AM Scheduled Provider: Location:[facility] Appointment Type:URO Nurse Visit Appointment Date:03/13/2024 01:15:00 PM Scheduled Provider:Aditya Nino MD [facility] Type:Cardiology Follow Up (FT) Future Scheduled Tests Radiology* Echo Transthoracic Complete 12/19/23 * NM Myocardial Spect Rest/Stress 2 Day 12/19/23 * NM Myocardial Spect Part 2 11/28/23 * [facility] Appointment Date:08/12/2023 01:00:00 PM Scheduled Provider: Location:[facility] Appointment Type:URO Nurse Visit Appointment Date:08/30/2023 08:15:00 AM Scheduled Provider: Location:[facility] Appointment Type:Urology CALL PAT FT Appointment Date:09/03/2023 03:00:00 PM Scheduled Provider: Location:[facility] Appointment Type:Urology FT Appointment Date:09/03/2023 03:45:00 PM Scheduled Provider: Location:[facility] Appointment Type:Urology FT Diagnostic Tests Pending * PSA Screen, Total 08/05/23 [facility] evaluation + Plan note Future Appointments Appointment Date:08/30/2023 08:15:00 AM Scheduled Provider: Location:[facility] Appointment Type:Urology CALL PAT FT Appointment Date:09/03/2023 03:00:00 PM Scheduled Provider: Location:[facility] Appointment Type:Urology FT Appointment Date:09/03/2023 03:45:00 PM Scheduled Provider: Location:[facility] Appointment Type:Urology FT Appointment Date:10/07/2023 01:00:00 PM Scheduled Provider: Location:[facility] Appointment Type:URO Nurse Visit [facility] evaluation + Plan note Future Appointments Appointment Date:12/20/2023 11:00:00 AM Scheduled Provider:Shahab PATTON MD Location:[facility] Appointment Type:URO Office Visit [facility] evaluation + Plan note Future Appointments Appointment Date:12/09/2023 10:00:00 AM Scheduled Provider: Location:[facility] Appointment Type:URO Nurse Visit Appointment Date:12/13/2023 10:15:00 AM Scheduled Provider:Aditya Nino MD [facility] Type:Cardiology New Patient (FT) Appointment Date:12/19/2023 08:00:00 AM Scheduled Provider: [facility] Type:CV Echo (FT) Appointment Date:12/19/2023 09:00:00 AM Scheduled Provider: [facility] Appointment Type:NM Myocard Spect Multi Rest/Stress-Res Appointment Date:12/19/2023 10:00:00 AM Scheduled Provider: [facility] Appointment Type:NM Myocard Spect Multi Rest/Stress - R Appointment Date:12/20/2023 02:30:00 PM Scheduled Provider: [facility] Appointment Type:NM Myocard Spect MultiRest/Stress-Stre Appointment Date:12/20/2023 03:30:00 PM Scheduled Provider: [facility] Appointment Type:NM Myocard Spect Multi Rest/Stress - S Appointment Date:12/30/2023 03:00:00 PM Scheduled Provider:Cortez Degroot MD Location:[facility] Appointment Type: Open Future Scheduled Tests Radiology* Echo Transthoracic Complete 12/19/23 * NM Myocardial Spect Rest/Stress 2 Day 12/19/23 * NM Myocardial Spect Part 2 11/28/23 * XR Chest 2 Views 11/28/23 [facility] Evaluation + Plan note Future Appointments Appointment Date:12/13/2023 10:15:00 AM Scheduled Provider:Aditya Nino MD [facility] Type:Cardiology New Patient (FT) Appointment Date:12/19/2023 08:00:00 AM Scheduled Provider: [facility] Type:CV Echo (FT) Appointment Date:12/19/2023 09:00:00 AM Scheduled Provider: [facility] Appointment Type:NM Myocard Spect Multi Rest/Stress-Res Appointment Date:12/19/2023 10:00:00 AM Scheduled Provider: [facility] Appointment Type:NM Myocard Spect Multi Rest/Stress - R Appointment Date:12/20/2023 02:30:00 PM Scheduled Provider: [facility] Appointment Type:NM Myocard Spect MultiRest/Stress-Stre Appointment Date:12/20/2023 03:30:00 PM Scheduled Provider: [facility] Appointment Type:NM Myocard Spect Multi Rest/Stress - S Appointment Date:12/30/2023 03:00:00 PM Scheduled Provider:Cortez Degroot MD Location:[facility] Appointment Type:FM Open Appointment Date:01/06/2024 11:00:00 AM Scheduled Provider: Location:[facility] Appointment Type:URO Nurse Visit Future Scheduled Tests Radiology* Echo Transthoracic Complete 12/19/23 * NM Myocardial Spect Rest/Stress 2 Day 12/19/23 * NM Myocardial Spect Part 2 11/28/23 * XR Chest 2 Views 11/28/23 [facility] evaluation + Plan note Future Appointments Appointment Date:01/16/2024 08:00:00 AM Scheduled Provider: [facility] Type:CV Echo Stress (FT) Appointment Date:02/03/2024 11:30:00 AM Scheduled Provider: Location:[facility] Appointment Type:URO Nurse Visit Appointment Date:03/09/2024 01:15:00 PM Scheduled Provider:Cortez Degroot MD Location:[facility] Appointment Type: Open Appointment Date:03/13/2024 01:15:00 PM Scheduled Provider:Aditya Nino MD [facility] Appoint[facility] Type:Cardiology Follow Up (FT) Future Scheduled Tests Radiology* EC Stress Echo Complete w/ Contrast 01/16/24 * NM Myocardial Spect Part 2 11/28/23 * XR Chest 2 Views 11/28/23 [facility] evaluation + Plan note Future Appointments Appointment Date:02/11/2024 01:00:00 PM Scheduled Provider: Location:[facility] Appointment Type:URO Nurse Visit Appointment Date:03/09/2024 01:15:00 PM Scheduled Provider:Cortez Degroot MD Location:[facility] Appointment Type: Open Appointment Date:03/13/2024 01:15:00 PM Scheduled Provider:Aditya Nino MD [facility] Appointment Type:Cardiology Follow Up (FT) Future Scheduled Tests Radiology* NM Myocardial Spect Part 2 11/28/23 * XR Chest 2 [facility]28[facility]ments Appointment Date:03/09/2024 01:15:00 PM Scheduled Provider:Cortez Degroot MD Location:[facility] Appointment Type: Open Appointment Date:03/10/2024 01:00:00 PM Scheduled Provider: Location:[facility] Appointment Type:URO Nurse Visit Appointment Date:03/13/2024 01:15:00 PM Scheduled Provider:Aditya Nino MD [facility] Appointment Type:Cardiology Follow Up (FT) Future Scheduled Tests Radiology* NM Myocardial Spect Part 2 11/28/23 * XR Chest 2 Views 11/28/23 [facility] evaluation + Plan note Future Appointments Appointment Date:04/03/2024 01:45:00 PM Scheduled Provider:Rodolfo Alex MD [facility] Appointment Type:Cardiology Follow Up (FT) Appointment Date:04/14/2024 01:00:00 PM Scheduled Provider: Location:[facility] Appointment Type:URO Nurse Visit Appointment Date:05/11/2024 01:00:00 PM Scheduled Provider: Location:[facility] Appointment Type:FM Medicare Wellness Subsequent Appointment Date:05/11/2024 02:00:00 PM Scheduled Provider:Cortez Degroot MD Location:[facility] Appointment Type:FM Open Future Scheduled Tests Radiology* NM Myocardial Spect Part 2 11/28/23 * XR Chest 2 Views 11/28/23 [facility] evaluation + Plan note Future Appointments Appointment Date:04/14/2024 01:00:00 PM Scheduled Provider: Location:[facility] Appointment Type:URO Nurse Visit Appointment Date:05/11/2024 01:00:00 PM Scheduled Provider: Location:[facility] Appointment Type:FM Medicare Wellness Subsequent Appointment Date:05/11/2024 02:00:00 PM Scheduled Provider:Cortez Degroot MD Location:[facility] Appointment Type:FM Open Future Scheduled Tests Radiology* CV Cardiovascular 04/08/24 * NM Myocardial Spect Part 2 11/28/23 * XR Chest 2 [facility]ments Appointment Date:04/17/2024 09:00:00 AM Scheduled [facility] Type:CV Heart Cath (FT) Appointment Date:05/11/2024 01:00:00 PM Scheduled Provider: Location:[facility] Appointment Type: Medicare Wellness Subsequent Appointment Date:05/11/2024 02:00:00 PM Scheduled Provider:Cortez Degroot MD Location:[facility] Appointment Type: Open Appointment Date:05/12/2024 01:00:00 PM Scheduled Provider: Location:[facility] Appointment Type:URO Nurse Visit Future Scheduled Tests Radiology* CV Cardiovascular 04/17/24 * NM Myocardial Spect Part 2 11/28/23 * XR Chest 2 Views 11/28/23 [facility] evaluation + Plan note Future Appointments Appointment Date:05/11/2024 01:00:00 PM Scheduled Provider: Location:[facility] Appointment Type: Medicare Wellness Subsequent Appointment Date:05/11/2024 02:00:00 PM Scheduled Provider:Cortez Degroot MD Location:[facility] Appointment Type: Open Appointment Date:05/12/2024 01:00:00 PM Scheduled Provider: Location:[facility] Appointment Type:URO Nurse Visit Appointment Date:05/20/2024 09:45:00 AM Scheduled Provider:Paul Barbosa PA-C [facility] Type:Cardiology Follow Up (FT) Future Scheduled Tests Radiology* NM Myocardial Spect Part 2 11/28/23 * XR Chest 2 Views [facility]28/[facility]ments Appointment Date:05/20/2024 09:45:00 AM Scheduled Provider:Paul Barbosa PA-C [facility] Type:Cardiology Follow Up (FT) Appointment Date:06/09/2024 12:30:00 PM Scheduled Provider:ELEAZAR Luis APRN, [place] Location:[facility] Appointment Type:URO Office Visit Appointment Date:07/13/2024 01:15:00 PM Scheduled Provider:Cortez Degroot MD Location:[facility] Appointment Type: Open Appointment Date:05/10/2025 02:30:00 PM Scheduled Provider: Location:[facility] Appointment Type:FM Medicare Wellness Subsequent Future Scheduled Tests Radiology* NM Myocardial Spect Part 2 11/28/23 * XR Chest 2 Views 11/28/23 [facility] evaluation + Plan note Future Appointments Appointment Date:06/09/2024 12:30:00 PM Scheduled Provider:ELEAZAR Luis APRN, [place] X Location:[facility] Appointment Type:URO Office Visit Appointment Date:07/13/2024 01:15:00 PM Scheduled Provider:Cortez Degroot MD Location:[facility] Appointment Type: Open Appointment Date:05/10/2025 02:30:00 PM Scheduled Provider: Location:[facility] Appointment Type: Medicare Wellness Subsequent Future Scheduled Tests Radiology* NM Myocardial Spect Part 2 11/28/23 * XR Chest 2 Views [facility]28[facility]ments Appointment Date:07/06/2024 10:00:00 AM Scheduled Provider: Location:[facility] Appointment Type:URO Nurse Visit Appointment Date:07/13/2024 01:15:00 PM Scheduled Provider:Cortez Degroot MD Location:[facility] Appointment Type: Open Appointment Date:07/31/2024 10:45:00 AM Scheduled Provider:Shahab PATTON MD Location:[facility] Appointment Type:URO Office Visit Appointment Date:05/10/2025 02:30:00 PM Scheduled Provider: Location:[facility] Appointment Type: Medicare Wellness Subsequent Future Scheduled Tests Radiology* NM Myocardial Spect Part 2 11/28/23 * XR Chest 2 Views 11/28/23 [facility] evaluation + Plan note Future Appointments Appointment Date:07/13/2024 01:15:00 PM Scheduled Provider:Cortez Degroot MD Location:[facility] Appointment Type: Open Appointment Date:07/31/2024 10:45:00 AM Scheduled Provider:Shahab PATTON MD Location:[facility] Appointment Type:URO Office Visit Appointment Date:05/10/2025 02:30:00 PM Scheduled Provider: Location:[facility] Appointment Type:FM Medicare Wellness Subsequent Future Scheduled Tests Radiology* NM Myocardial Spect Part 2 11/28/23 * XR Chest 2 Views 11/28/23 [facility] evaluation + Plan note Future Appointments Appointment Date:08/24/2024 01:00:00 PM Scheduled Provider:Cortez Degroot MD Location:[facility] Appointment Type:FM Open Appointment Date:08/31/2024 12:15:00 PM Scheduled Provider:Shahab PATTON MD Location:[facility] Appointment Type:URO Office Visit Appointment Date:05/10/2025 02:30:00 PM Scheduled Provider: Location:[facility] Appointment Type: Medicare Wellness Subsequent Future Scheduled Tests Radiology* NM Myocardial Spect Part 2 11/28/23 * XR Chest 2 Views 11/28/23 [facility] evaluation noteNo assessment information available [facility] Work Phone: Hiswlkx general Narrative - Reported* Type Description Date Medical History benign prostatic hypertrophy Medical History DVT Surgical History tonsillectomy Surgical History I & D abscess Hospitalization History See Above [facility] Hospital course Narrative No data available for this section [facility] Hospital Discharge instructions No data available for this section [facility] progress note No data available for this section [facility] Whale Imaging Summary Purpose Family History No Family History [...] DATE CREATED AUTHOR AUTHOR'S ORGANIZ ATION 05/14/2024 [facility] DATE CREATED AUTHOR AUTHOR'S ORGANIZ ATION 07/10/2024 [facility] DATE CREATED AUTHOR AUTHOR'S ORGANIZ ATION 08/07/2024 [facility] Patient Care team informatio n (unrecognized section [...] BE BASED ON THE PRIMARY CLINICAL RECORDS. [employer] provides no warranty or guarantee of the accuracy or completeness of information in this document.
[2024-08-18] MEDS: WARFARIN SODIUM 5 MG TABLET PO (21:46)
[2024-08-18] MEDS: 0.9 % SODIUM CHLORIDE 1,000 ML 250 ML IV (22:13)
[2024-08-18 22:58] LABS: Lactate/Lactic Acid 1.2 mmol/L (0.4-2.0)
[2024-08-19] VITALS (11 sets, daily range): BP systolic 101–116; BP diastolic 66–74; PULSE 68–97; TEMP 36.6–37.7; O2SAT 90–94
[2024-08-19] MEDS: 0.9 % SODIUM CHLORIDE 1,000 ML 125 ML IV ×2 (01:46→08:08)
[2024-08-19 06:23] LABS: Basophils Absolute Auto 0.1 10^3/uL (0.0-0.1); Basophils Percent Auto 0.5 % (0.2-2.0); Eosinophils Percent Auto 0.3 % (0.9-7.0); Hematocrit 40.6 % (42.0-54.0); Immature Granulocytes Abs Auto 0.06 10^3/uL (0.00-0.03); Immature Granulocytes Pct Auto 0.7 % (0.0-0.5); Lymphocytes Absolute Auto 1.2 10^3/uL (1.2-3.8); Lymphocytes Percent Auto 12.9 % (20.5-60.0); Mean Corpuscular HGB Conc 29.6 g/dL (29.9-35.2); Mean Corpuscular Hemoglobin 25.3 pg (25.9-34.0); Mean Corpuscular Volume 85.5 fL (80.0-94.0); Mean Platelet Volume 9.9 fL (9.5-13.5); Monocytes Absolute Auto 1.1 10^3/uL (0.3-0.8); Monocytes Percent Auto 11.6 % (1.7-12.0); Neutrophils Absolute Auto 6.8 10^3/uL (1.4-6.5); Platelet Count 177 10^3/uL (150-450); Red Blood Count 4.75 10^6/uL (4.70-6.10); White Blood Count 9.1 10^3/uL (4.0-11.0)
[2024-08-19 06:54] LABS: Alanine Aminotransferase 10 U/L (16-63); Albumin Globulin Ratio 0.6; Albumin Level 2.4 g/dL (3.4-5.0); Alkaline Phosphatase 88 U/L (46-116); Anion Gap 10.1; Aspartate Amino Transferase 14 U/L (15-37); BUN Creatinine Ratio 18.8; Bilirubin Total 0.5 mg/dL (0.2-1.0); Calcium 8.2 mg/dL (8.5-10.1); Carbon Dioxide 24.1 mmol/L (21.0-32.0); Chloride 100 mmol/L (98-107); Estimated GFR (African America 52 (>=60); Estimated GFR (Non-African Ame 43 (>=60); Globulin 3.8 g/dL; Glucose 123 mg/dL (74-106); Magnesium 1.8 mg/dL (1.8-2.4); Potassium 4.2 mmol/L (3.5-5.1); Sodium 130 mmol/L (136-145); Total Protein 6.2 g/dL (6.4-8.2)
[2024-08-19 06:58] LABS: INR 2.06; Prothrombin Time 20.3 sec (9.0-11.6)
[2024-08-19] MEDS: TAMSULOSIN HCL 0.4 MG CAPSULE PO ×2 (08:08→21:09)
[2024-08-19 08:22] LABS: Partial Thromboplastin Time 53.2 sec (22.3-36.2)
--- NOTE | 2024-08-19 09:38 | CM.NOTE ---
Rounds made with Dr. Aranda. Dr. Aranda explains plan of care. Urology consulted.
--- NOTE | 2024-08-19 09:49 | SWNOTE1 ---
SW met with pt to discuss dc needs. Pt lives at home by himself. Pt does not use any DME and is independent and still drives, grocery shops, etc. Pt does have 2 daughters that are close by if anything is needed. At this time pt has no anticipated discharge needs. Pt is on oxygen here at hospital and does not wear oxygen at home. SW to follow as needed.
[2024-08-19] MEDS: FUROSEMIDE 40 MG/4 ML VIAL IVP (09:52)
[2024-08-19] MEDS: CEFTRIAXONE 1,000 MG in 0.9 % SODIUM CHLORIDE 50 ML 100 MG IV (09:52)
--- NOTE | 2024-08-19 09:53 | SWNOTE1 ---
Important Message from Medicare reviewed and discussed with patient. Pt. verbalized understanding and signed the form. Original given to patient and copy placed in patient?s chart.
[2024-08-19] MEDS: 0.9 % SODIUM CHLORIDE 250 ML 10 ML IV (09:57)
[2024-08-19] MEDS: IPRATROPIUM/ALBUTEROL SULFATE 3 ML AMPUL.NEB IH ×3 (11:10→22:39)
--- NOTE | 2024-08-19 11:32 | PM.HP ---
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 Urology office could not place catheter and sent him to ED. In ED his work, he was found to have a fever of 101.5, HR > 100, RR> 20. His work up also revealed respiratory failure with hypoxia, possible LLL PNA and he was admitted to med surg floor after hinton catheter insertion. Patient has ongoing SOB for quite a while but he is focused on solving one issue at the time and does not want to discuss his breathing. Last month, he had to be admitted post operatively after TURP for persistent hypoxia and improved with OPEP/duonebs and one dose of IV lasix. He was weaned off of O2 and discharged home and it was d/w the patient that need likely has underlying COPD and/or CHF and will need work up as outpatient. He denies cough, wheezing but has LE edema that according to him is chronic. He was huffing/puffing just from moving around in his bed when RN was adjusting his blanket and catheter. He is in denial about his respiratory status and starts to get upset when pressed on the issue. Opioid HPI Opioid Management Most Recent Pain and Opioid Data: Last Pain Assessment 08/19/24 11:00 Last MAR Pain Assessment 08/18/24 17:04 Last ORT Total Score 0 08/18/24 18:51 Last ORT Risk Category Low Risk 08/18/24 18:51 Review of Systems ROS Status of ROS 10 or more systems reviewed and unremarkable except as noted in history and below [facility] Medical History (Updated 08/19/24 @ 11:44 by Shaikh Rosi MD) H/O deep venous thrombosis ?Z86.718 - Personal history of other venous thrombosis and embolism (ICD-10) CAD (coronary artery disease) ?I25.10 - Atherosclerotic heart disease of [place] coronary artery without angina pectoris (ICD-10) Elevated PSA ?R97.20 - Elevated prostate specific antigen [PSA] (ICD-10) Former smoker ?Z87.891 - Personal history of nicotine dependence (ICD-10) Anticoagulated ?Z79.01 - [facility] (current) use of anticoagulants (ICD-10) Deep vein thrombosis (2017) ?I82.409 - Acute embolism and thrombosis of unspecified deep veins of unspecified lower extremity (ICD-10) Heartburn ?R12 - Heartburn (ICD-10) Dyspnea on exertion ?R06.09 - Other forms of dyspnea (ICD-10) Urinary retention ?R33.9 - Retention of urine, unspecified (ICD-10) BPH with obstruction/lower urinary tract symptoms ?N40.1 - Benign prostatic hyperplasia with lower urinary tract symptoms (ICD-10) ?N13.8 - Other obstructive and reflux uropathy (ICD-10) Surgical History (Updated 07/03/24 @ 15:14 by Shaikh Rosi MD) History of cardiac cath ?Z98.890 - Other specified postprocedural states (ICD-10) S/P cystoscopy ?Z98.890 - Other specified postprocedural states (ICD-10) History of incision and drainage ?Z98.890 - Other specified postprocedural states (ICD-10) History of tonsillectomy ?Z90.89 - Acquired absence of other organs (ICD-10) Family History (Updated 08/18/24 @ 19:02 by Sarah Lopez RN) Father Family history of cancer Other Alzheimers disease Leukemia Social History Within the past year, how often did you have a drink containing alcohol: monthly or less Smoking status: Former smoker Second hand tobacco smoke exposure: No Non-prescribed substance use: denies use Previous occupational history: retired Highest level of school completed/degree received: high school graduate Little interest or pleasure in doing things: not at all Feeling down, depressed, or hopeless: not at all Do you think of yourself as: straight/heterosexual Gender Identity: male Meds Home Medications and Allergies Home Medications ?Medication ?Instructions ?Recorded ?Confirmed ?Type warfarin 5 mg tablet 5 mg PO .five days a week 07/07/23 08/18/24 History warfarin 2.5 mg tablet (Jantoven) 2.5 mg PO SUWE@1700 07/02/24 08/18/24 History tamsulosin 0.4 mg capsule (Flomax) 0.4 mg PO BID 08/19/24 08/19/24 History Allergies Allergy/AdvReac Type Severity Reaction Status Date / Time No Known Drug Allergies Allergy Verified 08/18/24 15:58 Exam Constitutional Vital Signs, click to edit/add: Last Vital Signs Temp 98 F 08/19/24 08:00 Pulse 97 H 08/19/24 11:13 Resp 20 08/19/24 08:00 BP 106/74 08/19/24 08:00 Pulse Ox 92 L 08/19/24 11:13 O2 Del Method Nasal Cannula 08/19/24 11:13 O2 Flow Rate 2.5 08/19/24 11:13 Documenting provider has reviewed patient's vital signs: yes Common normals: no apparent distress and oriented x3 General appearance: cooperative and in distress respiratory Nutritional appearance: obese HENMT Common normals: normocephalic and head/scalp atraumatic Head and scalp: normocephalic and atraumatic Eye Common normals: conjunctivae normal and no scleral icterus Conjunctiva: conjunctiva(e) normal Respiratory Common normals: normal respiratory effort and clear to auscultation bilaterally Effort & inspection: tachypneic Auscultation: diminished lung sounds Other: SOB during conversation Cardio Common normals: regular rate, S1 normal heart sound and S2 normal heart sound Rate: regular rate Heart sounds: S1 normal and S2 normal GI Common normals: Normal to inspection, nondistended, normoactive bowel sounds present, soft to palpation, non-tender and no hepatosplenomegaly Palpation: soft and no hepatosplenomegaly Extremity Common normals: full ROM General: edema (+1 LE edema) Neuro Common normals: oriented x3, moves all extremities and no focal motor deficits Psych Common normals: mental status grossly normal, denies hallucinations, denies homicidal ideation and denies suicidal ideation Results Labs Labs: Short CBC 08/18/24 08/19/24 Range/Units 16:28 06:00 WBC 11.0 9.1 (4.0-11.0) 10^3/uL Hgb 13.4 L 12.0 L (14.0-18.0) g/dL Hct 43.4 40.6 L (42.0-54.0) % Plt Count 222 177 (150-450) 10^3/uL BMP 08/18/24 08/19/24 16:28 06:00 Sodium 127 L 130 L Potassium 4.4 4.2 Chloride 95 L 100 Carbon Dioxide 24.9 24.1 BUN 23.0 H 30.0 H Creatinine 1.69 H 1.60 H Glucose 170 H 123 H Calcium 9.1 8.2 L Liver Function 08/18/24 08/19/24 Range/Units 16:28 06:00 Total Bilirubin 0.7 0.5 (0.2-1.0) mg/dL AST 18 14 L (15-37) U/L ALT 15 L 10 L (16-63) U/L Alkaline Phosphatase 110 88 (46-116) U/L Albumin 2.9 L 2.4 L (3.4-5.0) g/dL Urine 08/18/24 Range/Units 16:35 Urine Color Brown A (YELLOW) Urine Clarity Cloudy A (CLEAR) Urine pH Color interference A (5.0-9.0) Ur Specific [place] 1.015 (1.005-1.025) Urine Protein Color interference A (NEG/TRACE) mg/dL Urine Glucose (UA) Color interference A (NEGATIVE) mg/dL ABG ABG results: 08/18/24 16:28 VBG pH 7.378 VBG pCO2 41.1 Assessment and Plan Assessment and Plan (1) Sepsis: Assessment and Plan: HR >100-116, RR as high as 31, fever 101.4 - source of infection Catheter associated UTI and Left lower lobe PNA. Afebrile now. Hemodynamics are stable. No IVF as volume overload. F/u urine and blood cx. Qualifiers: Sepsis type: sepsis due to unspecified organism Sepsis acute organ dysfunction status: without acute organ dysfunction Qualified Code(s): A41.9 - Sepsis, unspecified organism (2) Left lower lobe pneumonia: Assessment and Plan: Chronic SOB, ongoing with intermittent hypoxia. CXR shows left LL infiltrates but this could be atelectasis too as this was present on an XR last month too. He denies cough/CP He is on IV rocephin for UTI. Added azithromycin for atypical coverage but has low suspicion for PNA. Qualifiers: Pneumonia type: due to unspecified organism Qualified Code(s): J18.9 - Pneumonia, unspecified organism (3) Urinary tract infection: Assessment and Plan: Catheter associated UTI. P/w sepsis. C/w IV rocephin. F/u urine and blood cx. Qualifiers: Urinary tract infection type: catheter-associated UTI Indwelling urinary catheter type: indwelling urethral catheter Encounter type: subsequent encounter Qualified Code(s): T83.511D - Infection and inflammatory reaction due to indwelling urethral catheter, subsequent encounter; N39.0 - Urinary tract infection, site not specified (4) Acute on chronic diastolic (congestive) heart failure: Assessment and Plan: Volume overload on exam. On time dose of IV lasix. Monitor I/O, daily weight. ECHO ordered. (5) Dyspnea on exertion: Assessment and Plan: Chronic, ongoing with intermittent hypoxia. Suspect underlying COPD and or CHF. ECHO ordered. One dose of IV lasix. Started on duonebs. Hold steroids as no active wheezing. Added OPEP. (6) Suspected chronic obstructive pulmonary disease based on initial evaluation: Assessment and Plan: Former smoker, suspect COPD based on exam. Will need outpatient PFTs. Started on duonebs. (7) BPH with obstruction/lower urinary tract symptoms: Assessment and Plan: Catheter in place with clear urine. F/u with urology as outpatient. (8) H/O deep venous thrombosis: Assessment and Plan: On coumadin for hx of DVT. Over 5 years ago. Recommend discussing with PCP to stop anticoagulation. (9) Anticoagulated: Assessment and Plan: on coumadin for DVT 5 years ago. Recommend discussing with PCP to stop anticoagulation. (10) Former smoker: Assessment and Plan: Likely the underlying reason for SOB/COPD Urinary Catheter Management Urinary Catheter Management Urethral: Cath placed during this visit: yes Urethral indwelling: Yes Reason for continuing: urinary obstruction Insertion date: 08/18/24 Insertion time: 16:36
--- NOTE | 2024-08-19 11:44 | CA_ITS ---
Patient Name: EUGENIA WOODSON MR#: [id number] : 1950 Exam Date: 08/19/2024 Ordering Doctor: SHAIKH Lynn MONROE . ECHOCARDIOGRAM REPORT PROCEDURE: CA ECHO DOPPLER COMPLETE INDICATIONS: sob/suspected CHF, sepsis, pneumonia, CAD COMPARISON: None. DESCRIPTION: COMPLETE ECHOCARDIOGRAM Real-time transthoracic echocardiography with 2D, M-mode, spectral and color flow Doppler performed. QUALITY: Technical quality was adequate. LEFT VENTRICLE: Normal chamber size. Moderate left ventricular hypertrophy. LV EF: Global left ventricular systolic function is hyperdynamic; visually estimated ejection fraction is 70 to 75%. No significant wall motion abnormalities DIASTOLIC: Unable to assess diastolic function. ATRIAL SEPTUM: Inadequately seen. LEFT ATRIUM: Normal chamber size. RIGHT ATRIUM: Poorly seen; appears normal in size. RIGHT VENTRICLE: Normal chamber size; normal right ventricular systolic function. TRICUSPID VALVE: Normal mobility and thickness. No stenosis with no regurgitation. Unable to assess right-sided pressures due to lack of measurable tricuspid regurgitation MITRAL VALVE: Normal mobility and thickness. No evidence of mitral valve stenosis. There is no mitral annular calcification. No mitral regurgitation. AORTIC VALVE: Normal trileaflet appearance. No visible sclerosis. Normal leaflet mobility. No evidence of aortic valve stenosis. No aortic regurgitation. AORTIC ROOT: Normal diameter and appearance. PULMONIC VALVE: Not well visualized. No regurgitation. PERICARDIUM: Anterior free space seen; trivial effusion versus fat pad. IVC: Not well visualized. CONCLUSION: 1. Global left ventricular systolic function is hyperdynamic; visually estimated ejection fraction is 70 to 75% 2. The right ventricle is poorly seen but appears both normal in size and systolic function 3. Moderate left ventricular hypertrophy 4. Valves are poorly seen; no significant valvular abnormalities 5. Anterior free space; trivial effusion versus fat pad Adult Echocardiography Procedure Report Left Ventricle LVEDD (3.7 - 5.6 cm): 5.35 cm LVESD (2.2 - 4.0 cm): 3.36 cm LVIVS thickness (0.6 - 1.2 cm): 1.48. cm LVPW thickness (0.5 - 1.0 cm): 1.30 cm e': 0.09 m/s E - e': 5.80 LVOT Max Gradient: 4.23 mm[Hg] LVOT Area (cm2): 1.03 m/s Peak Velocity (LVOT): 1.03 m/s Mean Velocity (LVOT): 0.64 m/s LVOT Diameter 4.90 cm Left Atrium LA Volume Index (2D A2C): 21.55 ml/m2 Mitral Valve MV E to A Ratio: 0.52 Mitral Valve A-Wave Peak Velocity: 1.00 m/s Mitral Valve E-Wave Peak Velocity: 0.52 m/s Right Ventricle Aorta AO Root Diam: 4.25 cm Aortic Valve AoV Area (Peak Reji): 11.45 cm2, 11.45 cm2 AoV Area (VTI): 13.13 cm2, 13.13 cm2 Peak Velocity(Antegrade Flow): 1.69 m/s Peak Gradient(Antegrade Flow): 11.49 mm[Hg] Mean Velocity(Antegrade Flow): 0.96 m/s Mean Gradient(Antegrade Flow): 4.69 mm[Hg] Velocity Time Integral: 23.94 cm Tricuspid Valve Pulmonic Valve Peak Velocity: 0.82 m/s Peak Gradient: 2.68 mm[Hg] Right Atrium Right Atrium Systolic Pressure: 69.22 ml, 69.22 ml Dictated by: Arjun Yanez M.D. on 08/19/2024 at 15:02 Approved by: Arjun Yanez M.D. on 08/19/2024 at 15:07
[2024-08-19] MEDS: AZITHROMYCIN 250 MG TABLET 500 MG PO (12:15)
[2024-08-19] MEDS: WARFARIN SODIUM 2.5 MG TABLET PO (16:44)
[2024-08-20] VITALS (7 sets, daily range): BP systolic 111–123; BP diastolic 69–75; PULSE 77–100; TEMP 36.9–37.6; O2SAT 90–93
[2024-08-20] MEDS: IPRATROPIUM/ALBUTEROL SULFATE 3 ML AMPUL.NEB IH ×3 (04:29→15:49)
[2024-08-20 06:20] LABS: Basophils Percent Auto 0.2 % (0.2-2.0); Eosinophils Percent Auto 0.3 % (0.9-7.0); Hematocrit 40.2 % (42.0-54.0); Immature Granulocytes Abs Auto 0.05 10^3/uL (0.00-0.03); Immature Granulocytes Pct Auto 0.4 % (0.0-0.5); Lymphocytes Absolute Auto 0.8 10^3/uL (1.2-3.8); Lymphocytes Percent Auto 6.2 % (20.5-60.0); Mean Corpuscular HGB Conc 29.9 g/dL (29.9-35.2); Mean Corpuscular Hemoglobin 25.4 pg (25.9-34.0); Mean Platelet Volume 9.9 fL (9.5-13.5); Monocytes Absolute Auto 1.1 10^3/uL (0.3-0.8); Monocytes Percent Auto 8.3 % (1.7-12.0); Neutrophils Absolute Auto 11.1 10^3/uL (1.4-6.5); Neutrophils Percent Auto 84.6 % (43.0-75.0); Platelet Count 190 10^3/uL (150-450); Red Blood Count 4.73 10^6/uL (4.70-6.10); Red Cell Distribution Width 15.9 % (11.0-15.0); White Blood Count 13.1 10^3/uL (4.0-11.0)
[2024-08-20 06:36] LABS: INR 2.66; Prothrombin Time 25.6 sec (9.0-11.6)
[2024-08-20 06:47] LABS: Alanine Aminotransferase 16 U/L (16-63); Albumin Globulin Ratio 0.6; Albumin Level 2.4 g/dL (3.4-5.0); Alkaline Phosphatase 87 U/L (46-116); Aspartate Amino Transferase 21 U/L (15-37); BUN Creatinine Ratio 19.3; Bilirubin Total 0.4 mg/dL (0.2-1.0); Chloride 100 mmol/L (98-107); Estimated GFR (African America 56 (>=60); Estimated GFR (Non-African Ame 46 (>=60); Globulin 4.2 g/dL; Glucose 145 mg/dL (74-106); Potassium 4.2 mmol/L (3.5-5.1); Sodium 134 mmol/L (136-145); Total Protein 6.6 g/dL (6.4-8.2)
[2024-08-20 06:53] LABS: Anion Gap 11.1; Carbon Dioxide 27.1 mmol/L (21.0-32.0)
[2024-08-20] MEDS: CEFTRIAXONE 1,000 MG in 0.9 % SODIUM CHLORIDE 50 ML 100 MG IV (09:29)
[2024-08-20] MEDS: AZITHROMYCIN 250 MG TABLET 500 MG PO (09:29)
[2024-08-20] MEDS: TAMSULOSIN HCL 0.4 MG CAPSULE PO (09:29)
--- NOTE | 2024-08-20 10:35 | CM.NOTE ---
Rounds made with Dr. Aranda, pt c/o testicular pain. Dr. Aranda assessed and will order ultrasound. Dr. Aranda discussed with RN about weaning oxygen and possible discharge to home this afternoon if tolerates weaning of oxygen and ultrasound negative.
--- NOTE | 2024-08-20 11:30 | US_ITS ---
The [address] [address] Patient Name: EUGENIA WOODSON MRN: [id number] date: 1950 Sex: M Assigned Patient Location: [place] Current Patient Location: [place] Accession/Order Number: [id number] Exam Date: 08/20/2024 11:40 Report Date: 08/20/2024 12:44 At the request of: SHAIKH MABEL Procedure: US scrotum EXAMINATION: US scrotum HISTORY: scrotal edema and painful rt testicle COMPARISON: No relevant comparison available. TECHNIQUE: High-resolution sonographic imaging of the scrotum and contents was performed. FINDINGS: RIGHT: TESTICLE: Homogeneous echotexture. No visible mass. Slightly increased vascularity. Spectral Doppler demonstrates normal arterial waveform and flow, 5/2 cm/s (PSV/EDV), and normal venous wave flow averaging 1 cm/s. EPIDIDYMIS: Several small cysts and a single larger 1.2 cm cyst within the epididymis. Normal blood flow and echogenicity. OTHER: Abnormal skin thickening, 0.9 cm. Small hydrocele. LEFT: TESTICLE: Homogeneous echotexture. Contains a small benign-appearing cysts; no visible mass. Color Doppler flow is present. Spectral Doppler demonstrates arterial waveform and flow, 4/2 cm/s (PSV/EDV), and normal venous flow averaging 1 cm/s. EPIDIDYMIS: 0.8 cm cyst within head. OTHER: None. US/US scrotum IMPRESSION: 1. Right scrotal skin thickening, small hydrocele, and slightly increased vascularity of the right testicle suggestive of orchitis. 2. Unremarkable left testicle and scrotum. Electronically authenticated by: SONALI LE Date: 08/20/2024 12:44
[2024-08-20] MEDS: VANCOMYCIN HCL 1,750 MG in 0.9 % SODIUM CHLORIDE 500 ML 250 MG IV (14:19)
--- NOTE | 2024-08-20 15:13 | P.DS_ITS ---
DS: Providers Provider Date of admission: 08/18/24 18:40 Primary care physician: LISA DEGROOT Admitting clinician: Shaikh Rosi Attending physician on admission: Shaikh Rosi Attending physician on discharge: Shaikh Rosi Discharging clinician: Shaikh Rosi Anticipated date of discharge: 08/20/24 DS: Diagnosis Discharge Diagnosis (1) Sepsis: Assessment and plan: Resolved. Stable hemodynamics. Qualifiers: Sepsis acute organ dysfunction status: without acute organ dysfunction Sepsis type: sepsis due to unspecified organism Qualified Code(s): A41.9 - Sepsis, unspecified organism (2) Left lower lobe pneumonia: Assessment and plan: Suspect this is atelectasis but he was regardless treated with rocephin/azithromycin as he was receiving rocephin for UTI regardless. No resp symptoms today. On RA. Qualifiers: Pneumonia type: due to unspecified organism Qualified Code(s): J18.9 - Pneumonia, unspecified organism (3) Urinary tract infection: Assessment and plan: Associated wit urinary catheter. Stable for discharge on Levaquin Qualifiers: Encounter type: subsequent encounter Indwelling urinary catheter type: indwelling urethral catheter Urinary tract infection type: catheter-associated UTI Qualified Code(s): T83.511D - Infection and inflammatory reaction due to indwelling urethral catheter, subsequent encounter; N39.0 - Urinary tract infection, site not specified (4) Acute on chronic diastolic (congestive) heart failure: Assessment and plan: ECHO showed LVH, but diastolic dysfunction could not be determined. Suspect underlying HFpEF given his body habitus, LVH and symptoms. Needs outpatient evaluation by cardiology. (5) Cellulitis of scrotum: Assessment and plan: New finding today. Developed right sided scrotal pain, skin induration, very tender to touch. US negative testicular torsion. Likely scrotal cellulitis. Received IV vancomycin. Will d/c on oral Levaquin. Recommended scrotal support/elevation for pain. (6) Dyspnea on exertion: Assessment and plan: Improved over the course of admission. Multifactorial and likely due to under lying COPD/acute on chronic diastolic HF/with suspect left lower lobe PNA. (7) Suspected chronic obstructive pulmonary disease based on initial evaluation: Assessment and plan: Will benefit from outpatient PFTs. (8) BPH with obstruction/lower urinary tract symptoms: Assessment and plan: Will d/c with hinton catheter. Outpatient f/u with urology. (9) H/O deep venous thrombosis: Assessment and plan: On Coumadin. Pharmacist will discuss with patient to adjust his coumadin dose with Levaquin. D/w patient that he might not need coumadin anymore given that hx DVT was over 5 years ago. (10) Anticoagulated: Assessment and plan: On Coumadin. Dose will need adjustment due to interaction with Levaquin. Pharmacist from coumadin clinic with discuss with the patient. (11) Former smoker: DS: Summary Hospital Course Hospital Course: 73 y o male who had TURP in June for BPH, was sent from Urologist office after he tugged on his hinton catheter while mowing his elvin. Urology office could not place catheter and sent him to ED. In ED his work, he was found to have a fever of 101.5, HR > 100, RR> 20. His work up also revealed respiratory failure with hypoxia, possible LLL PNA and he was admitted to med surg floor after hinton catheter insertion. He was treated with IV Rocephin and Azithromycin for CAP/UTI. His hypoxia is multifactorial and likely sec to BIRGIT/underlying COPD. He was also treated with IV lasix for presumed acute on chronic diastolic HF. ECHO performed that was unremarkable except for LVH but diastolic function could not be determined. Today on discharge day, he was feeling well from resp pov. His hypoxia resolved. Patient developed acute right scrotal pain that based on exam seemed c/w scrotal cellulitis. US of scrotum was negative for testicular torsion. Patient is medically stable for discharge on oral Levaquin. He will benefit from outpatient eval by Cardiology to ascertain his underlying etiology for intermittent hypoxia and GAY. He will benefit from outpatient PFTs to r/o underlying COPD. Patient instructed to f/u with PCP in one week. His coumadin dose will be adjusted temporarily due to interaction with Levaquin. Patient is medically stable for discharge. Status at Discharge Functional status at discharge: independent ambulation Overall status at discharge: patient is back to baseline Time Spent with Patient Time attestation: Total time spent providing and/or coordinating discharge services: Time spent: greater than 30 minutes Exam Constitutional Vital Signs, click to edit/add: Last Vital Signs Temp 99.1 F 08/20/24 13:26 Pulse 77 08/20/24 13:26 Resp 20 08/20/24 13:26 BP 123/74 08/20/24 13:26 Pulse Ox 93 L 08/20/24 13:26 O2 Del Method Room Air 08/20/24 13:26 O2 Flow Rate 2.5 08/20/24 10:30 Documenting provider has reviewed patient's vital signs: yes Common normals: no apparent distress and oriented x3 General appearance: cooperative Nutritional appearance: obese HENMT Common normals: normocephalic and head/scalp atraumatic Head and scalp: normocephalic and atraumatic Eye Common normals: conjunctivae normal and no scleral icterus Conjunctiva: conjunctiva(e) normal Respiratory Common normals: normal respiratory effort, no use of accessory muscles and clear to auscultation bilaterally Effort & inspection: able to speak in complete sentences Auscultation: diminished lung sounds Cardio Common normals: regular rate, S1 normal heart sound and S2 normal heart sound Rate: regular rate Heart sounds: S1 normal and S2 normal Scrotum: tenderness, erythematous and scrotal swelling Scrotal swelling laterality: right Scrotal swelling consistent with: hydrocele and other (cellulitis) Extremity Common normals: full ROM Neuro Common normals: oriented x3, moves all extremities and no focal motor deficits Psych Common normals: mental status grossly normal, denies hallucinations, denies homicidal ideation and denies suicidal ideation DS: Data Data Completed and Pending Labs on day of discharge: Labs from last 24 hours 08/20/24 05:57 WBC 13.1 H RBC 4.73 Hgb 12.0 L Hct 40.2 L MCV 85.0 MCH 25.4 L MCHC 29.9 RDW 15.9 H Plt Count 190 MPV 9.9 Neut % (Auto) 84.6 H Lymph % (Auto) 6.2 L [place] % (Auto) 8.3 Eos % (Auto) 0.3 L Baso % (Auto) 0.2 Neut # (Auto) 11.1 H Lymph # (Auto) 0.8 L [place] # (Auto) 1.1 H Eos # (Auto) 0.0 Baso # (Auto) 0.0 Abs Immat Gran (auto) 0.05 H Imm/Tot Granulo (auto) 0.4 PT 25.6 H INR 2.66 Sodium 134 L Potassium 4.2 Chloride 100 Carbon Dioxide 27.1 Anion Gap 11.1 BUN 29.0 H Creatinine 1.50 H Est GFR ( Amer) 56 L Est GFR (Non-Af Amer) 46 L BUN/Creatinine Ratio 19.3 Glucose 145 H Calcium 9.0 Total Bilirubin 0.4 AST 21 ALT 16 Alkaline Phosphatase 87 Total Protein 6.6 Albumin 2.4 L Globulin 4.2 Albumin/Globulin Ratio 0.6 Discharge Plan Discharge Disposition: Home, Self-Care Discharge Medications: New levofloxacin 750 mg tablet 750 mg PO DAILY 10 Days Qty: 10 0RF oxycodone 5 mg tablet 5 mg PO Q6H PRN (Reason: pain) 3 Days Qty: 10 0RF Continued tamsulosin [Flomax] 0.4 mg capsule 0.4 mg PO BID warfarin 5 mg tablet 5 mg PO .five days a week Rx Instructions: SAT, , , SAT AND SATURDAY warfarin [Jantoven] 2.5 mg tablet 2.5 mg PO SUWE@1700 Rx Instructions: TWO DAYS A WEEK, SATURDAY AND Activity: increase activity as tolerated Diet: advance to your usual diet Print Language: Mongolian Patient Instructions: Levofloxacin (By mouth), Pneumonia (DC), Scrotal Pain (GEN) Forms: Portal Instructions Follow Up Appointments: @ 3pm with Dr. Degroot [phone] F/u with Urology in 1-2 weeks (Keep any previously scheduled appts. with [facility])
--- NOTE | 2024-08-26 14:54 | CM.DCFOLLOWU ---
Person spoke with: Eliud How are you feeling? Much better How is your pain? No pain Did you understand your discharge instructions? Yes Do you have any questions about your discharge instructions? No Were you given any prescriptions at discharge? Yes Were you able to get your prescriptions filled? Yes Do you understand how to take your medications as ordered? Yes Do you have any questions about your follow up appointment and do you plan to keep your follow up appointment? I went to f/u appt with Dr. Degroot and see urology on Saturday Is there anything else that you would like to discuss? No Questions/Comments/Concerns/Other:
== END 2024-08-20 17:43 | disposition home or self-care (01) | DRG 698 ==
LOC: ER 18:37 → MS 18:43
PROVIDERS: Physician Assistant; Registered Nurse; Admitting Provider Internal Medicine; Emergency Provider Emergency Medicine; PCP Family Medicine; Visit Provider Internal Medicine
DX: T83.511A Infection and inflammatory reaction due to indwelling urethral catheter, initial encounter (principal); A41.50 Gram-negative sepsis, unspecified; J18.9 Pneumonia, unspecified organism; I50.33 Acute on chronic diastolic (congestive) heart failure; Z68.42 Body mass index [BMI] 45.0-49.9, adult; N13.8 Other obstructive and reflux uropathy; R09.02 Hypoxemia; N39.0 Urinary tract infection, site not specified; E66.9 Obesity, unspecified; J44.9 Chronic obstructive pulmonary disease, unspecified; R06.09 Other forms of dyspnea; N40.1 Benign prostatic hyperplasia with lower urinary tract symptoms; N49.2 Inflammatory disorders of scrotum; I25.10 Atherosclerotic heart disease of native coronary artery without angina pectoris; Z98.890 Other specified postprocedural states; Z79.01 Long term (current) use of anticoagulants; Z86.718 Personal history of other venous thrombosis and embolism; Z20.822 Contact with and (suspected) exposure to COVID-19; Z87.891 Personal history of nicotine dependence; Z79.899 Other long term (current) drug therapy; Z46.6 Encounter for fitting and adjustment of urinary device
CPT/HCPCS: 36415; 51702; 71045; 76870; 80053; 81001; 82800; 83605; 83735; 83880; 84484; 85007; 85025; 85027; 85610; 85730; 87040; 87086; 87150; 87186; 87811; 93005; 93306; 94640; 94667; 94668; 94761; 96365; 99285; J0696; J1940; J3370

== ENCOUNTER 2024-08-25 01:38 | Outpatient (RCR) | payer MEDICARE, SELFPAY | END 2024-09-24 23:43 | disposition home or self-care (01) | LOC: MM 01:38 | PROVIDERS: PCP Family Medicine; Visit Provider Internal Medicine | DX: Z51.81 Encounter for therapeutic drug level monitoring (principal); Z79.01 Long term (current) use of anticoagulants; I82.409 Acute embolism and thrombosis of unspecified deep veins of unspecified lower extremity | CPT/HCPCS: 85610; G0463 ==

== ENCOUNTER 2024-09-25 11:40 | Outpatient (RCR) | payer MEDICARE, SELFPAY | END 2024-10-24 23:59 | disposition home or self-care (01) | LOC: MM 11:40 | PROVIDERS: PCP Family Medicine; Visit Provider Internal Medicine | DX: Z51.81 Encounter for therapeutic drug level monitoring (principal); Z79.01 Long term (current) use of anticoagulants; I82.409 Acute embolism and thrombosis of unspecified deep veins of unspecified lower extremity ==

== ENCOUNTER 2024-10-26 03:53 | Outpatient (RCR) | payer MEDICARE, SELFPAY | END 2024-11-24 09:33 | disposition home or self-care (01) | LOC: MM 03:53 | PROVIDERS: PCP Family Medicine; Visit Provider Internal Medicine | DX: Z51.81 Encounter for therapeutic drug level monitoring (principal); Z79.01 Long term (current) use of anticoagulants | CPT/HCPCS: 85610; G0463 ==

== ENCOUNTER 2024-11-12 07:57 | Outpatient (OUT) | payer MEDICARE, SELFPAY ==
--- NOTE | 2024-11-12 07:59 | CT_ITS ---
[address] [address] Patient Name: EUGENIA WOODSON MRN: [id number] date: 1950 Sex: M Assigned Patient Location: CT Current Patient Location: Accession/Order Number: [id number] Exam Date: 11/12/2024 08:08 Report Date: 11/14/2024 06:35 At the request of: ANDREA CHAPIN Procedure: CT lung screening low-dose EXAMINATION: CT lung screening low-dose HISTORY: Screening For Malignant Neoplasm Of Respiratory Organs COMPARISON: No relevant comparison available. TECHNIQUE: Axial, Coronal, and Sagittal images were created without the administration of IV contrast material. Dose reduction techniques were achieved by using automated exposure control and/or adjustment of mA and/or kV according to patient size and/or use of iterative reconstruction technique. FINDINGS: LUNGS: 6 mm opacity versus nodule within anterior right upper lobe adjacent the minor fissure. No significant emphysematous changes or acute infiltrates. PLEURA: No mass, effusion, or pneumothorax. VASCULATURE: No abnormality. MULU: No mass or pathologic adenopathy. MEDIASTINUM: No mass or pathologic adenopathy. CARDIAC: Small pericardial effusion up to 8 mm in thickness. No cardiac enlargement. Coronary Artery calcifications: Coronary calcifications are absent. AORTA: Dilation of ascending aorta, 4.8 cm. CHEST WALL: No mass or axillary adenopathy BONES: No bone lesion or fracture. LIMITED ABDOMEN: No suspicious findings. Limited images of the upper abdomen. OTHER: Negative. CT/CT lung screening low-dose IMPRESSION: 1. Lung-RADS 2- Benign Appearance or Behavior. Nodules with a very low likelihood of becoming a clinically active cancer due to size or lack of growth. Follow-up CT Chest in 1 year. 2. Small pericardial effusion. 3. 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 Electronically authenticated by: SONALI LE Date: 11/14/2024 06:35
--- OUTSIDE RECORDS SUMMARY | 2024-11-12 08:02 | XMS_ITS | CCD ---
Author Organization [facility] Care Team Providers Care Hearing Examiner Name Role Phone REQUEST, DR NONE LISTED [...] ble ChristAditya castanon Admitting Unavaila ble ChristAditya castanon Referring Unavaila ble ChristAditya castanon Attending Unavaila ble MD Jacob LOVELL Consulting Unavailable LILIYA, Jacob Tan Consulting Unavailable Jacob LOVELL Consulting Unavailable Cortez Degroot Attending Unavailable PATTON, Shahab R Attending Unavailable PATTON, Shahab R Attending Unavailable PATTON, Shahab R Attending Unavailable PATTON, Shahab Carrasquillo Attending Unavailable Cortez Degroot Attending [...] Attending Unavaila ble Shahab PATTON Attending Unavailable MARIA TESPERANZA REID Attending Unavailable Cortez Degroot Attending Unavailable RossCortez Attending Unavailable Cortez Degroot Attending Unavailable Cortez Degroot Attending Unavailable PATTON, Shahab R Attending Unavailable PATTON, Shahab R Attending Unavailable Orzech, Rae X Attending Unavailable ESPERANZA LIVE Attending Unavailable PATTON, Shahab Carrasquillo Attending Unavailable Shahab PATTON Attending Unavailable ESPERANZA LIVE Attending Unavailable MD Shahab Patton Attending Provider [phone] Shahab Patton Attending Unavailable PattonShahab Admitting Unavailable Cortez Degroot Attending Unavailable Cortez Degroot Attending Unavailable Cortez Degroot Attending Unavailable PATTON, Shahab R Attending Unavailable PATTON, Shahab R Attending Unavailable PATTON, Shahab R Attending Unavailable PATTON, Shahab R Attending Unavailable Orzech, Rae X Attending Unavailable PATTON, Shahab R Attending Unavailable PATTON, Shahab R Attending Unavailable NONE, XXXX Referring Unavailable Paul Barbosa Attending Unavailable ChristAditya castanon Admitting Unavaila ble Christofferson, Aditya D. Attending Aditya Ojeda Referring Cortez Gregory Admitting Unavailable Cortez Degroot Admitting Shahab Munroe Attending Cortez Willett Attending Cortez Willett Attending Unavailable Medications Current Medications Medication Drug Class(es) Dates Sig (Normalized) Sig (Original) Albuterol (Eqv-Ventolin HFA) 90 mcg/inh inhalation aerosol (2 sources) Start: 11-02-2024 Albuterol (Eqv-Ventolin HFA) 90 mcg/inh inhalation aerosol 2 inh, Refill(s) 0 Start Date: 11/02/24 Status: Ordered Start: 08-24-2024 take 2 puff(s) by in halation every six hours Albuterol (Eqv-Ventolin HFA) 90 mcg/inh inhalation aerosol 2 puff(s), Inhalation, q6hr Shortness of breath or wheezing, 18 gm, Refill(s) 0, Or cheapest alternative, [facility]/pharmacy #[id number], 180, cm, 08/24/24 15:02:00 EDT, Height/Length Dosing, 155, kg, 08/24/24 15:02:00 EDT, Weight Dosing Start Date: 08/24/24 Status: Ordered Breztri Aerosphere inhalatio n aerosol (2 sources) Start: 11-02-2024 Breztri Aerosp here inhalation aerosol inh, Inhalation, BID, Refill(s) 0 Start Date: 11/02/24 Status: Ordered Start: 08-31-2024 take 2 puff(s) by in halation twice daily Breztri Aerosphere inhalation aerosol 2 puff(s), Inhalation, BID, Refill(s) 0 Start Date: 08/31/24 Status: Ordered cephalexin 500 mg oral capsule (2 sources) Cephalosporin Antibacterial Start: 08-12-2023 take 1 capsule by mouth every eight hours Cephalexin 500 MG 1 capsule Orally tid for 7 days Jul, Active Start: 04-27-2016 take 1 capsule by [facility] twice daily Keflex 500 MG 1 [...] Active oxybutynin chloride 5 mg oral tablet (20 sources) Cholinergic Muscarinic Antagonist Start: 07-06-2024 oxybutynin 5 mg Tab See Instructions, PRN for urinary discomfort, 1 tab po q 6 hrs PRN bladder spasms, up to TID, # 30 tab(s), Refills(s) 3, Pharmacy: [facility]/pharmacy #[id number], 173, cm, 05/20/24 10:19:00 EDT, Height/Length Dosing, 154.2, kg, 05/20/24 10:19:00 EDT, Weight Dosing Start Date: 07/06/24 Status: Ordered Start: 04-14-2024 oxybutynin 5 m g Tab See Instructions, PRN for urinary discomfort, 1 tab po q 6 hrs PRN bladder spasms/leaking around hinton, up to TID, # 30 tab(s), Refills(s) 3, Pharmacy: [facility]/pharmacy #[id number], 180, cm, 04/14/24 12:37:00 EDT, Height/Length Dosing, 154.3, kg, 04/14/24 12:37:00 EDT, Weight Dosing Start Date: 04/14/24 Status: Ordered Start: 10-08-2023 oxybutynin 5 m g Tab See Instructions, PRN for urinary discomfort, 1 tab po q 6 hrs PRN bladder spasms/leaking around hinton, up to TID, # 30 tab(s), Refills(s) 3, Pharmacy: [facility]/pharmacy #[id number], 180, cm, 10/08/23 12:12:00 EST, Height/Length Dosing, 123, kg, 10/08/23 12:12:00 EST, Weight Dosing Start Date: 10/08/23 Status: Ordered tamsulosin hydrochloride 0.4 mg oral capsule (20 sources) alpha-Adrenergic Karina Start: 08-03-2024 take 1 capsule by mouth twice daily tamsulosin 0.4 mg Cap 0.4 mg = 1 cap(s), Oral, BID, # 60 cap(s), Refills(s) 11, Pharmacy: [facility]/pharmacy #[id number], 180, cm, 07/31/24 10:57:00 EDT, Height/Length Dosing, 154, kg, 07/31/24 10:57:00 EDT, Weight Dosing Start Date: 08/03/24 Status: Ordered Start: 08-05-2023 End: 07-30-2024 tamsulosin 0.4 mg [...] CLINIC, # 90 tab(s), Refills(s) 3, Pharmacy: [facility] STORE [id number], 180, cm, 12/30/23 15:09:00 EST, Height/Length Dosing, 155.2, kg, 12/30/23 15:09:00 EST, Weight Dosing Start Date: 03/03/24 Status: Ordered Start: 08-05-2023 warfarin 5 mg, Oral, Every other day, alternate 2.5 mg with 5 mg tab, Refills(s) 0 Start Date: 08/05/23 Status: Ordered Start: 08-05-2023 warfarin Oral, Daily, Refills(s) 0 Start Date: 08/05/23 Status: Ordered take 1 tablet by [facility] once daily Warfarin Sodium 5 MG TAKE [...] procedure, # 2 tab(s), Refills(s) 0, Pharmacy: [facility]/pharmacy #[id number], 180, cm, 08/05/23 12:26:00 EDT, Height/Length [...] source) Unspecified contact dermatitis, unspecified cause Episodic Chronic obstructive pulmonary disease and bronchiectasis (1 source) Chronic obstructive lung disease 09-04-2024 Chronic Coronary atherosclerosis and other heart disease (1 source) Coronary atherosclerosis; 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: [Atherosclerotic heart disease of [place] coronary artery without angina pectoris] Onset: 05-20-2024 [...] Onset: 03-23-2023 Episodic Other aftercare (1 source) long term care phlebotomist (current) use of anticoagulants; 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: [[facility] USE ANTICOAGULANTS] Onset: 04-24-2023 Episodic Other aftercare (7 sources) Long-term current use of anticoagulant; 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: [penitentiary (current) use of anticoagulants] Onset: 08-05-2023 Episodic Other aftercare (4 sources) Post-discharge follow-up 07-13-2024 Episodic Other diseases of bladder and urethra (3 sources) Disorder of bladder; 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: [Other specified disorders of bladder] Onset: 10-08-2023 Chronic Other diseases of bladder and urethra (8 sources) Spasm of bladder 05-12-2024 Chronic Other diseases of kidney and ureters (1 source) Urinary tract obstruction; 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: [Other obstructive and reflux uropathy] Onset: 04-14-2024 Episodic Other lower respiratory disease (20 sources) Dyspnea on exertion 11-28-2023 Episodic Other lower respiratory disease (2 sources) Dyspnea; 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: [Shortness of breath] Onset: 04-07-2024 Episodic Other non-traumatic joint disorders (18 sources) Knee pain 12-30-2023 Episodic Other nutritional; endocrine; and metabolic disorders (2 sources) Morbid obesity; 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: [Morbid (severe) obesity due to excess calories] Chronic Comment on above: Added back to proble m list, noted in 08/24/2024 office note, per outpatient [facility]I policy. Other screening for suspected conditions (not mental disorders or infectious disease) (20 sources) Encounter for screening for malignant neoplasm of prostate; 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: [Screening for malignant neoplasm done] Onset: 08-05-2023 Episodic Phlebitis; thrombophlebitis and thromboembolism (20 sources) Acute embolism and thrombosis of unspecified deep veins of left lower extremity; 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: [H/O: Deep vein thrombosis] Onset: 02-25-2023 Episodic Respiratory failure; insufficiency; arrest (adult) (4 sources) Acute respiratory failure 07-13-2024 Episodic Screening and history of mental health and substance abuse codes (20 sources) H/O: Disorder; 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: [Personal history of nicotine dependence] Onset: 08-05-2023 Episodic Skin and subcutaneous tissue infections (1 source) Cellulitis of right upper limb Episodic Substance-related disorders (2 sources) Tobacco dependence, continuous 08-31-2024 Chronic Unclassified (20 sources) Drug therapy finding 08-05-2023 Unclassified (17 sources) Patient encounter status 08-05-2023 Results Test Name Value Interpretation Reference Range Facil ity Urology Office/Clinic Noteon 11-02-2024 Urology Office/Clinic Note Urology Office/Clinic Note Chief Complaint urinary retention HPI Staff 73yr old male pt here for 2mo f/u. Pt was to start CIC 4x per day after Hinton removal at last OV on 08/31/24. S/p cysto 08/2023. S/p TURP 06/2024. Previous Dx: urinary retention, BPH w/ urinary obstruction, anticoagulated *tamsulosin 0.4mg bid Pt states that he did not start the CIC. He feels he is doing fine urinating on his own. Dysuria: denies Incomplete bladder emptying: he is unsure Hematuria: denies Frequency: denies Urgency: denies Nocturia: 2-3x Stream: pt states no straining or intermittency Leaking: states a little bit. He states this mostly happens when he is around running water Post void dripping: yes Wearing pads/ Depends: briefs and usually can use only 1 a day Urge incontinence: denies Stress incontinence: sometimes when he goes to a standing position Incontinence without Sensory Awareness: denies Abdominal pain: denies Flank pain: denies Sexual complaints: denies History of Present Illness Tests reviewed: none I have reviewed the previous health record information and history for this patient from Dr. Patton. I have reviewed and verified the staff [...] Physical Exam Vitals & Measurements T: 37 ???C(Temporal Artery) HR: 82(Peripheral) RR: 16 BP: 135/86 HT: 71 in HT: 180 cm WT: 155 kg WT: 341.716 lb BMI: 47.84 General Appearance: alert, no distress, well nourished, well developed male. Assessment/Plan 1. Urinary retention (R33.9: Retention of urine, unspecified) Pt presented to [facility] ER 07/07/23 for retention. Pt was [...] so had catheter replaced that same day. Catheter removed IO 07/31/24. Went to [facility] ER 08/01/24 due to inability to void, had catheter replaced with 600cc output. [2] Catheter replaced at [facility] ER . Taught CIC at 09/10/24 OV. Instructed to CIC 4x/day. Never did try to CIC as he was just happy to have that thing [catheter] out . States he voids ~2-4oz each time. Does not feel he has trouble emptying. Shares he felt voids were minimal prior to TURP. Advised pt low volume voids indicate difficulty emptying. Likely has been an ongoing issue, worsening over time. Discussed risk of not emptying leading to infection and possible bladder dysfunction requiring a chronic catheter. Recommended pt to try CIC/ Risks/benefits discussed. Pt willing to try this. Does not feel he needs reinstructed how to do this as he still has instructions on hand and recalls from prior teaching. Also still has 2-month's worth of catheter supplies from prior encounter. -Start CIC 4x/day, pt to try to void on own prior -Complete voiding diary -Cont Tamsulosin bid -F/u in 2 mos 2. BPH with urinary obstruction (N40.1: Benign prostatic hyperplasia with lower urinary tract symptoms) S/p Cysto 09/03/23 - prostatic urethra is obstructed, median lobe. S/p TURP 07/02/24 - 28 grams removed. Path neg for malignancy. Taking Tamsulosin 0.4mg bid. -See #1 3. Anticoagulated (Z79.01: long term care phlebotomist (current) use of anticoagulants) on warfarin Stress test x 2 with inconclusive results. [3] Follow-up With When Contact Information JENN GUERIN, Shahab Carrasquillo, URL [facility] [address] , [place] [address] [phone] Additional Instructions: 2 mos w/ voiding diary Patient Education Clean Intermittent Catheterization, Male I, Elizabeth Greenberg, personally scribed for Dr. Patton on 11/02/2024 14:26:20. . Documentation recorded by the ashwiniibElizabeth walton, accurately reflects the services(s) I performed and decisions made by me. Authenticated by Dr. Patton on 11/02/2024 14:28:41. Problem List/Past Medical History Ongoing Abnormal EKG Anticoagulated Bladder (more content not included)... Normal [facility] Comment on above: Result Comment: Elec tronically Signed By: Shahab PATTON MD\.br\Date and Time Signed: 11/02/24 14:28 EST\.br\Electronically Co-Signed By: Elizabeth Greenberg\.br\Date and Time Co-Signed: 11/02/24 14:27 EST [facility] 09-14-20 [facility] Case Information Case Priority: None Programs: -- Referral Source: Casino Porter Referral Reason: Care coordination Case Type: Transition Care Management Risk Score: -- Case Status: Enrolled (August 24, 2024) Date Assigned: August 21, 2024 Assigned By: Titus Tamayo Date Enrolled: August 24, 2024 Assigned Primary Personnel: Titus Tamayo Assigned Secondary Personnel: -- Case Physician: Cortez Degroot MD Problems Ongoing Abnormal EKG Anticoagulated Bladder spasm BPH with urinary obstruction Chronic obstructive pulmonary disease Elevated PSA Former smoker Hospital discharge follow-up Hx of deep venous thrombosis Knee pain Morbid obesity SOB (shortness of breath) on exertion Urinary retention Historical Acute hypoxic respiratory failure Procedure/Surgical History TURP - Transurethral resection of prostate (07/02/2024), Catheterization of left heart (04/17/2024), Tonsillectomy. Home Medications Albuterol (Eqv-Ventolin HFA) 90 mcg/inh inhalation aerosol, 2 puff(s), Inhalation, q6hr, PRN Breztri Aerosphere inhalation aerosol, 2 puff(s), Inhalation, BID oxybutynin 5 mg Tab, See Instructions, PRN, 3 refills, Not taking tamsulosin 0.4 mg Cap, 0.4 mg= 1 [...] age 69 Years. Household tobacco concerns: No. Yes, 09/07/2024 Family History Alzheimer's disease: Grandparent. Leukemia: Father. Screenings and Assessments 08/24/24 09:25:00 Result Name Value Comment Phone Call Monitoring Consent Agreed to continue call Phone Verification Patient Information Full name, street address and date of verified CM Program Enrollment Provides verbal consent for enrollment Goals and Interventions Care Plan Progress Note TCM#4- Called patient for final TCM follow up call. Patient states he is doing 'alright.' Notes his breathing has improved with the new inhalers Dr. Degroot prescribed. Patient did scheduled a pulmonary consult with Dr. Saldivar. Notes that is scheduled for October. Patient denies any fever or chills. Notes his scrotum is still 'a bit swollen, but much much much better.' Patient no longer has a Hinton cath. States he has no issues voiding on his own. Patient notes he doesn't' t think all his urine 'comes out at once,' but feels his intake/ output ratio is adequate. Patient denies any symptoms fluid retention. Patient states he believes he is 'pretty much back to normal.' Patient denies need for medication refills. Patient denies any further questions or concerns. . Communication Events Date: September 14, 2024 Method: Phone call Type: Outbound Duration (min): 7 Outcome: Case discussion Contact Type: Patient Contact Name: EUGENIA GIL Notes: TCM#4- see tcm note. Created By: Titus Tamayo Date: September 07, 2024 Method: Phone call Type: Outbound Duration (min): 1 Outcome: No answer Contact Type: Patient Contact Name: EUGENIA GIL Notes: TCM#3- No answer, VM box full. Created By: Titus Tamayo Date: August 31, 2024 Method: Phone call Type: Outbound Duration (min): -- Outcome: No answer Contact Type: Patient Contact Name: EUGENIA GIL Notes: TCM#2- no answer, vm box is full. Created By: Titus Tamayo Date: August 24, 2024 Method: Phone call Type: Outbound Duration (min): 12 Outcome: Case discussion Contact Type: Patient Contact Name: EUGENIA GIL Notes: TCM#1- see note. Created By: Titus Tamayo Date: August 21, 2024 Method: Phone call Type: Outbound Duration (min): -- Outcome: No answer Contact Type: Patient Contact Name: EUGENIA GIL Notes: TCM#1- no answer, VM box full. Created By: Titus Tamayo [facility] Urology Office/Clinic Noteon 09-10-2024 Urology Office/Clinic Note Urology Office/Clinic Note Chief Complaint 1 mth f/u HPI Staff 73 yr old here for 1 mth follow up. pt has hinton bag. pt would like to discuss removal of cath today but is unsure about CIC. Cath has only been in for 2 weeks History of Present Illness Tests reviewed: reviewed ER notes I have reviewed the previous health record information and history for this patient from Dr. Patton. I have reviewed and verified the staff [...] See HPI. Physical Exam Vitals & Measurements HR: 84(Peripheral) BP: 134/72 HT: 71 in HT: 180 cm WT: 154 kg WT: 338.8 lb BMI: 47.53 General Appearance: alert, no distress, well nourished, well developed male. Assessment/Plan 1. Urinary retention (R33.9: Retention of urine, unspecified) Pt presented to [facility] ER 07/07/23 for retention. Pt was [...] so had catheter replaced that same day. Catheter removed IO 07/31/24. Went to [facility] ER 08/01/24 due to inability to void, had catheter replaced with 600cc output. 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 Catheter was unable to be irrigated. Catheter was removed and 18Fr coude and 16Fr coude were unable to be placed so pt was sent to ER. [facility] ER was able to replace catheter without issues but pt was then admitted for pneumonia. Still has catheter in place today. Again discussed removal and learning CIC given multiple failed voiding trials. Pt states he would be willing to learn but is hesitant given the difficulty with previous placements by medical staff, unsure he has the ability to do CIC. Advised pt we would teach this IO with instructions and pt would be provided appropriate care and supplies for CIC. Wishes to learn today. Understands catheter may need replaced again if he does not have success with CIC. We taught the technique, with instruction to measure the residual urine by straight catheterizing after first attempting to void. The risks of CIC were discussed, including bleeding, infection and causing UTI's (although urinary retention itself is also a risk). Questions were answered and the patient verbalized understanding. Straight catheters are provided. Prescription for catheters will be provided in the near future. -Start CIC 4x/day -F/u in 2 mos 2. BPH with urinary obstruction (N40.1: Benign prostatic hyperplasia with lower urinary tract symptoms) S/p Cysto 09/03/23 - prostatic urethra is obstructed, median lobe. S/p TURP 07/02/24 - 28 grams removed. Path neg for malignancy. Taking Tamsulosin 0.4mg bid. -See #1 3. Anticoagulated (Z79.01: penitentiary (current) use of anticoagulants) on warfarin Stress test x 2 with inconclusive results. [2] Follow-up With When Contact Information JENN GUERIN, Shahab Carrasquillo, URL [facility] [address], [place] [address]- [phone] Additional Instructions: 2 mos (no labs) Patient Education Clean Intermittent Catheterization, Male I, Elizabeth Greenberg, personally scribed for Dr. Patton on 08/31/2024 13:31:17. . Documentation recorded by the scribeElizabeth, accurately reflects the services(s) I performed and decisions made by me. Authenticated by Dr. Patton on 08/31/2024 13:58:18. Problem List/Past Medical History Ongoing Abnormal EKG Acute hypoxic respiratory failure Anticoagulated Bladder spasm BPH with urinary obstruction Elevated PSA Former smoker Hospital discharge follow-up Hx of deep venous thrombosis Knee pain SOB (shortness of breath) on exertion Urinary retention Historical No qualifying data Procedure/Surgical History TURP - Transurethral resection of prostate (07/02/2024), Catheterization of left heart (04/17/2024), Tonsillectomy. Medica (more content not included)... Normal [facility] Comment on above: Result Comment: Elec tronically Signed By: Andra Jamil\.shruthi\Date and Time Signed: 09/10/24 14:15 EDT Ambulatory Visit Summaryon 1 Ambulatory Visit Summary Ambulatory Visit Summary EUGENIA GIL :1950 Visit Date:09/07/2024 Ambulatory Visit Instructions Your Diagnosis SOB (shortness of breath) on exertion Chronic obstructive pulmonary disease Former smoker Your Care Team Attending Physician - Cortez Degroot MD Primary Care Physician - Cortez Degroot MD This Is Your Medications List albuterol (Albuterol (Eqv-Ventolin HFA) 90 mcg/inh inhalation aerosol) budesonide/formoterol /glycopyrrolate (Breztri Aerosphere inhalation aerosol) oxybutynin (oxybutynin 5 mg Tab) tamsulosin (tamsulosin 0.4 mg Cap) warfarin (warfarin 5 mg Tab) Procedures Performed TURP - Transurethral resection of prostate (07/02/2024), Catheterization of left heart (04/17/2024), Tonsillectomy. Discharge Vitals Temperature (Temporal Artery) 36.6 ?C Heart Rate (Peripheral) 80 Respiratory Rate 16 Blood Pressure 118/72 Height 180 cm Height 71 in Weight 150.6 kg Weight 331.32 lb BMI 46.48 What to do next Scheduled Follow-Up Appointments Saturday 1:30 PM EST With: JENN GUERIN, Shahab Carrasquillo Where: [facility] [address] [place] [address]- Saturday 1:15 PM EST With: Cortez Degroot MD Where: [address] [address]- Saturday 2:30 PM EDT With: Where: [address] [address]- Medications What How Much When Instructions Unchanged albuterol (Albuterol (Eqv-Ventolin HFA) 90 mcg/ inh inhalation aerosol) 2 Puffs Inhalation Every 6 hours as needed for Shortness of breath or wheezing Or cheapest alternative Unchanged budesonide/ formoterol/ glycopyrrolate (Breztri Aerosphere inhalation aerosol) 2 Puffs Inhalation 2 times a day Unchanged oxybutynin (oxybutynin 5 mg Tab) See instructions 1 tab po q 6 hrs PRN bladder spasms, up to TID Unchanged tamsulosin (tamsulosin 0.4 mg Cap) 1 Capsules By Mouth 2 times a day Unchanged warfarin (warfarin 5 mg Tab) See instructions TAKE 1 TABLET DAILY OR DIRECTED BY MEDICATION MANAGEMENT CLINIC Allergies No Known Allergies Problems Ongoing - Any problem that you are currently receiving treatment for. Abnormal EKG Anticoagulated Bladder spasm BPH with urinary obstruction Chronic obstructive pulmonary disease Elevated PSA Former smoker Hospital discharge follow-up Hx of deep venous thrombosis Knee pain Morbid obesity SOB (shortness of breath) on exertion Urinary retention Historical - Any problem that you are no longer receiving treatment for. Acute hypoxic respiratory failure Patient Survey You may receive a survey via text or e-mail asking about your office visit. Please share your experience with us by completing your survey. We appreciate your feedback and thank you for choosing us for your care. Normal [facility] Family Medicine Office/Clini c Noteon 09-07-2024 Family Medicine Office/Clinic Note Family Medicine Office/Clinic Note Chief Complaint The patient presents with recent exacerbation of shortness of breath on exertion and patches of dry skin on the face. HPI Staff Eugenia is a 73 year old male presenting for one month follow up shortness of breath YASIR exacerbation of copd from recent illness. rxed inhaler Nearly out of the breztri and will need more if to continue ( has plenty of abuterol inhaler left) Seems to him if he gets short of breath he recovers quicker with the breztri but overall hasn't changed the shortness of breath he's been having questions/concerns: having a lot of dry skin on his face/forehead, wondering what may cause this and what to use, has been using moisturizer History of Present Illness The patient is a 73-year-old male presenting with respiratory difficulty, specifically chronic shortness of breath. The patient has a known history of chronic obstructive pulmonary disease (COPD). Currently, he is treating his condition with daily inhalation therapy, specifically mentioning the use of breast treat once a day, which appears to be beneficial in symptom management as he reports recovering his breath quicker upon episodes of exertion, albeit he still gets short of breath. Despite this, he admits to missing doses occasionally due to forgetfulness, but overall feels that his medication assists in alleviating his symptoms. Follow-up with a respiratory specialist, Dr. Saldivar, is scheduled for October for further evaluation. The patient also reports a history of morbid obesity, which may be influencing his respiratory complaints. He describes using albuterol infrequently, indicating a potential reduction in acute symptomatic episodes. He has an appointment scheduled with [facility] for further management of his pulmonary condition. In addition to respiratory issues, the patient is concerned about dry patches on his face. While these were not the primary concern of the visit, it is reported that the use of a loofah helps remove these patches after showers. Differential diagnoses such as eczema, psoriasis, or dandruff are considered, with empiric treatment options discussed, including the use of Selsun Blue shampoo. Review of Systems PHQ Score Initial Depression Screen Score: 0 SCORE - Dermatological: Reports patches of dry skin on the face. - Respiratory: Reports chronic shortness of breath, particularly on exertion. Physical Exam Vitals & Measurements T: 36.6 ?C(Temporal Artery) HR: 80(Peripheral) RR: 16 BP: 118/72 SpO2: 97% HT: 71 in HT: 180 cm WT: 150.6 kg WT: 331.32 lb BMI: 46.48 General: alert, no acute distress ENMT: oral mucosa moist Cardiovascular: Regular rate and rhythm, normal peripheral perfusion Respiratory: Lungs clear to auscultation, respirations non labored, good air movement Extremities: no deformity, no trauma, Red flaky rash noted on his forehead and into his scalp. Neurological: oriented x 4, level of consciousness appropriate for age, CN II-XII intact, motor strength equal & normal bilaterally, speech normal Abdomen: Soft, Non-tender, Non-distended, + Bowel sounds Assessment/Plan 1. SOB (shortness of breath) on exertion (R06.02: Shortness of breath) The SOB is likely secondary to the COPD and obesity. Encouraging physical activity within tolerance and monitoring exacerbations will be critical. The continuation of respiratory medications should assist in management. Further insights will be sought during the appointment with Dr. Saldivar. 2. Chronic obstructive pulmonary disease (J44.9: Chronic obstructive pulmonary disease, unspecified) The patient will continue the current inhalation therapy with the breast treat inhaler, which includes a controller medication. The patient should be reminded to adhere to the daily regime without missing doses. An upcoming follow-up with Dr. Saldivar in October has been scheduled for further management and evaluation of the COPD. The use of albuterol is noted to be rare, indicating stability in acute symptom management. Continue observing for any changes in symptoms.09/04/2024 11:40 am - Peri MANCINI, Sheridan Added back to problem list, noted in 08/24/2024 office note, per outpatient [facility] policy. 3. Former smoker (Z87.891: Personal history of nicotine dependence) Please continue to not smoke. 4. Rash (R21: Rash and other nonspecific skin eruption) Wxos-cjv-[id number] treatment with Selsun Blue shampoo is recommended for symptomatic relief. If persistent or worsening, a dermatological consultation may be warranted to rule out psoriasis or other dermal conditions. Follow-up No qualifying data available Problem List/Past Medical History Ongoing Abnormal EKG Anticoagulated Bladder spasm BPH with urinary obstruction Chronic obstructive pulmonary disease Elevated PSA Former smoker Hospital discharge follow-up Hx of deep venous thrombosis Knee pain Morbid obesity SOB (shortness of breath) on exertion Urinary retention Historical Acute (more content not included)... Normal [facility] Comment on above: Result Comment: Elec tronically Signed By: Zane GUERIN, Cortez Erwin\.br\Date and Time Signed: 09/07/24 13:21 EDT Ambulatory Visit Summaryon 1 Ambulatory Visit Summary Ambulatory Visit Summary EUGENIA GIL :1950 Visit Date:08/31/2024 Ambulatory Visit Instructions Your Diagnosis Urinary retention BPH with urinary obstruction Anticoagulated Your Care Team Attending Physician - Shahab PATTON MD Primary Care Physician - Cortez Degroot MD This Is Your Medications List Contact prescribing physician if questions or concerns albuterol (Albuterol (Eqv-Ventolin HFA) 90 mcg/inh inhalation aerosol) budesonide/formoterol /glycopyrrolate (Breztri Aerosphere inhalation aerosol) oxybutynin (oxybutynin 5 mg Tab) tamsulosin (tamsulosin 0.4 mg Cap) warfarin (warfarin 5 mg Tab) Procedures Performed TURP - Transurethral resection of prostate (07/02/2024), Catheterization of left heart (04/17/2024), Tonsillectomy. Discharge Vitals Heart Rate (Peripheral) 84 Blood Pressure 134/72 Height 180 cm Height 71 in Weight 154 kg Weight 338.8 lb BMI 47.53 What to do next Scheduled Follow-Up Appointments Saturday 1:00 PM EDT With: Zane GUERIN, Cortez Erwin Where: [address] [address]- Saturday 1:30 PM EST With: Shahab PATTON MD Where: [facility] [address] [place] [address]- Saturday 2:30 PM EDT With: Where: [address] [address]- You Need to Schedule the Following Appointments Follow Up with Shahab PATTON MD, URL When: Where: [facility] [address], [place] [address] [phone] Medications What How Much When Instructions Unchanged albuterol (Albuterol (Eqv-Ventolin HFA) 90 mcg/ inh inhalation aerosol) 2 Puffs Inhalation Every 6 hours as needed for Shortness of breath or wheezing Or cheapest alternative Contact prescribing physician if questions or concerns Unchanged budesonide/ formoterol/ glycopyrrolate (Breztri Aerosphere inhalation aerosol) 2 Puffs Inhalation 2 times a day Contact prescribing physician if questions or concerns Unchanged oxybutynin (oxybutynin 5 mg Tab) See instructions 1 tab po q 6 hrs PRN bladder spasms, up to TID Contact prescribing physician if questions or concerns Unchanged tamsulosin (tamsulosin 0.4 mg Cap) 1 Capsules By Mouth 2 times a day Contact prescribing physician if questions or [...] choosing us for your care. Education Materials Clean Intermittent Catheterization, Male Clean intermittent catheterization (CIC) is a procedure to drain pee (urine) from the bladder by placing a soft tube (catheter) into the bladder though the urethra. The urethra is a tube in the body that carries pee from the bladder out of the body. CIC reduces the risk of infection and other problems that may arise when pee is not completely emptied from the bladder. CIC may be done when: ? You cannot completely empty your bladder on your own. This may be due to a blockage in the bladder or urethra. ? Your bladder leaks pee. This may happen when the muscles or nerves near the bladder are not working normally, so the bladder overflows. Your health care provider will show you how to do the procedure. You will also be given the supplies you need to do the procedure. Supplies needed: ? Germ-free (sterile), water-based lubricant. ? A container for pee collection. You may also use the toilet to dispose of pee from the catheter. ? A catheter. Your provider will determine the best size for you. ? Use this catheter size: ? Clean gloves. ? Soap and water. ? Clean washcloth and towel. How to perform this procedure: Most people need CIC at least 4 times per day to completely empty the bladder. Your provider will tell you how often you should do CIC. ? Number of times per day to perform CIC: To perform CIC, follow these steps: 1. Wash your hands with soap and water for 20 seconds. If soap and water a (more content not included)... Normal [facility] Ambulatory Visit Summaryon 0 08-24-2024 Ambulatory Visit Summary Ambulatory Visit Summary EUGENIA GIL :1950 Visit Date:08/24/2024 Ambulatory Visit Instructions Your Diagnosis BMI 45.0-49.9, adult, Body mass index [BMI] 45.0-49.9, adult Class 3 severe obesity due to excess calories with body mass index (BMI) of 45.0 to 49.9 in adult Former smoker Chronic obstructive pulmonary disease, unspecified Sepsis, unspecified organism Shortness of breath Personal history of pneumonia (recurrent) Cellulitis, unspecified Urinary tract infection, site not specified Your Care Team Attending Physician - Cortez Degroot MD Primary Care Physician - Cortez Degroot MD This Is Your Medications List levofloxacin oxybutynin (oxybutynin 5 mg Tab) oxycodone tamsulosin (tamsulosin 0.4 mg Cap) warfarin (warfarin 5 mg Tab) Procedures Performed TURP - Transurethral resection of prostate (07/02/2024), Catheterization of left heart (04/17/2024), Tonsillectomy. Discharge Vitals Temperature (Oral) 36.4 ?C Heart Rate (Peripheral) 88 Respiratory Rate 18 Blood Pressure 122/80 Height 180 cm Height 71 in Weight 155 kg Weight 341 lb BMI 47.84 What to do next Scheduled Follow-Up Appointments Saturday 12:15 PM EDT With: JENN GUERIN, Shahab Carrasquillo Where: [facility] [address] [place], [place] [id number]- Saturday 1:00 PM EDT With: Cortez Degroot MD Where: [address] [address]- Saturday 2:30 PM EDT With: Where: [address] [id number]- Medications What How Much When Instructions Unchanged levofloxacin 750 Milligram By Mouth Every 24 hours Duration: 10 Days Unchanged oxybutynin (oxybutynin 5 mg Tab) See instructions 1 tab po q 6 hrs PRN bladder spasms, up to TID Unchanged oxycodone 5 Milligram By Mouth Every 6 hours as needed for as needed for pain Duration: 3 Days Unchanged tamsulosin (tamsulosin 0.4 mg Cap) 1 Capsules By Mouth 2 times a day Unchanged warfarin (warfarin 5 mg Tab) See [...] choosing us for your care. Normal [facility] Family Medicine Office/Clini c Noteon 08-24-2024 Family Medicine Office/Clinic Note Family Medicine Office/Clinic Note Chief Complaint The patient expresses significant concern regarding shortness of breath and issues related to the urinary tract. HPI Staff Eugenia is a 73 year old male presenting for 6 week follow up but recently hospital stay [facility] hospital follow up hypoxemia, DVT, BPH Recent hospital stay admitted 08/19 with pneumonia, cellulitis and UTI he is short of breath History of Present Illness The patient is a 73-year-old male presenting with significant shortness of breath and a focus on urinary tract issues following recent hospitalization. At the time of the hospital visit, the patient was diagnosed with pneumonia, sepsis of the blood, cellulitis of the right testicle, and a urinary tract infection. During the hospital stay, the patient received multiple breathing treatments and was prescribed antibiotics, including Levaquin (levofloxacin), which were purposed to help treat both the pneumonia and the urinary tract infection. Despite discharge, the patient reports continued severe shortness of breath that limits ambulation. The history of present illness involves a systematic recounting of the patient's respiratory and urinary conditions. The patient has been experiencing difficulties with breathing for an extended period, with a noted exacerbation during this recent health episode. The patient describes past respiratory events characterized by difficulty in breathing and reports waking up with symptoms such as diarrhea, sweating, and severe dyspnea, which culminated in the diagnosis of blood sepsis at the emergency department visit. The history also includes the patient?s chronic obstructive pulmonary disease (COPD) management challenges, including prior episodes of similar severity. The patient qualifies for oxygen supplementation due to their current respiratory insufficiency. Addressing the urinary tract issues, the patient acknowledges a urinary tract infection (UTI) treated during hospitalization and presents significant concern over a recurring cellulitis episode in the testicular region, emphasized by a recent mishap with a Hinton catheter. The swelling of the right testicle, previously noticeable, has since reduced in the post-hospitalization period following adherence to the antibiotic regimen. The patient has been compliant with antibiotics and reports improvement in pain and swelling despite persistent discomfort. Review of Systems PHQ Score Initial Depression Screen Score: 1 SCORE - Respiratory: Reports severe shortness of breath; denies wheezing. - General: Reports episodes of sweating; denies fever. - Gastrointestinal: Reports diarrhea. - Genitourinary: Reports difficulty related to urinary catheter placement. - Neurological: Denies confusion. - Dermatological: Denies rashes. Physical Exam Vitals & Measurements T: 36.4 ?C(Oral) HR: 88(Peripheral) RR: 18 BP: 122/80 SpO2: 91% HT: 71 in HT: 180 cm WT: 155 kg WT: 341 lb BMI: 47.84 General: alert, no acute distress ENMT: oral mucosa moist Cardiovascular: Regular rate and rhythm, normal peripheral perfusion Respiratory: Lungs clear to auscultation, respirations non labored, but patient is very short of breath, borderline on oxygen level at 91% Extremities: no deformity, no trauma, no significant fluid in legs Neurological: oriented x 4, level of consciousness appropriate for age, CN II-XII intact, motor strength equal & normal bilaterally, speech normal Abdomen: Soft, Non-tender, Non-distended, + Bowel sounds Assessment/Plan 1. Hospital discharge follow-up (Z09: Encounter for follow-up examination after completed treatment for conditions other than malignant neoplasm) TCM reviewed, discharge summary reviewed. Patient is referred to pulmonary. Patient is following up with urology. Ordered: [facility] External Ambulatory Referral 2. Chronic obstructive pulmonary disease, unspecified (J44.9) COPD remains a significant concern with exacerbated symptoms post recent illness. Ongoing pharmacological management alongside pulmonary care referral with a potential for ongoing oxygen therapy consideration to evaluate chronic management needs. Ordered: [facility] External Ambulatory Referral 3. Sepsis, unspecified organism (A41.9) The sepsis component addressed during the hospitalization has resolved according to symptomatic improvement. Continued vigilance for any new signs of systemic infection is recommended. Ordered: [facility] External Ambulatory Referral 4. Shortness of breath (R06.02) The primary concern today is severe shortness of breath. We will initiate treatment with a prescribed inhaler to provide symptomatic relief. The potential COPD exacerbation will be managed with steroids and possible long-term inhaler therapy. A referral to pulmonology for further evaluation and management has been initiated to address contributions from both pulmonary and systemic health status. Ordered: [facility] External Ambulatory Referral 5. Personal history of (more content not included)... Normal [facility] Comment on above: Result Comment: Elec tronically Signed By: Cortez Degroot MD\.br\Date and Time Signed: 08/24/24 15:36 EDT [facility] 08-24-20 [facility] Case Information Case Priority: None Programs: -- Referral Source: Casino Porter Referral Reason: Care coordination Case Type: Transition Care Management Risk Score: -- Case Status: Enrolled (August 24, 2024) Date Assigned: August 21, 2024 Assigned By: Titus Tamayo Date Enrolled: August 24, 2024 Assigned Primary Personnel: Titus Tamayo Assigned [...] (07/02/2024), Catheterization of left heart (04/17/2024), Tonsillectomy. Home Medications levofloxacin, 750 mg, Oral, q24hr oxybutynin 5 mg Tab, See Instructions, PRN, 3 refills oxycodone, 5 mg, Oral, q6hr, PRN tamsulosin 0.4 mg Cap, 0.4 mg= 1 [...] age 69 Years. Household tobacco concerns: No. Yes, 07/31/2024 Family History Alzheimer's disease: Grandparent. Leukemia: Father. Screenings and Assessments 08/24/24 09:25:00 Result Name Value Comment Phone Call Monitoring Consent Agreed to continue call Phone Verification Patient Information Full name, street address and date of verified CM Program Enrollment Provides verbal consent for enrollment Goals and Interventions Care Plan Progress Note Admit Date: 08/18/24 [facility] Date of Discharge: 08/20/24 Follow-up appointment scheduled? yes, 08/24/24, [facility] follow up at 1500, with Dr. Degroot Did you understand your discharge instructions? yes Are you able to follow them? yes Did you receive new medications? yes, levofloxacin 750 mg qd x 10 days, oxycodone 5 mg q6 hrs PRN x 3 days Have you filled the Rx's? yes Are you taking them as prescribed? yes Are you having difficulty eating or swallowing your pills? no Are you having any stomach upset, diarrhea or constipation? diarrhea began day of admission, 'improving' How are you sleeping? n/a Are you having any pain? yes, scrotum, 'a lot of pain' has improved a lot, oxycodone does help Do you have everything you need at home to care for yourself? yes Do you have Home Health? no Called patient for initial Transitional Care Management Program call. Readmission risk not available. Reviewed d/c instructions and dx of: sepsis, LLL pneumonia, UTI, acute on chronic diastolic HF, cellulitis of scrotum, susp. COPD, BPH with obstruction, h.o DVT, anticoagulated, former smoker. Reviewed purpose and side effects of new medications with patient. Medications reconciled with patient list, EHR, and D/C list. Patient states he is doing a lot better now than he was in the hospital. States pain and swelling are much better. He continues to have quite a bit of pain, notes the oxycodone does help. States it is painful to walk and he hasn't been doing anything. CN discussed some comfort measures for pain and discomfort. Patient notes Hinton is in place and draining well. Notes urine color sabra, denies any visible blood. Patient is eating okay and drinking water and poweraid. Patient 'not sure' if edema present to BLE. Patient notes he had diarrhea upon arrival to [facility]. He states it is 'improving' now and 'getting back to normal.' Denies a strong fowl odor to BM. Patient denies any change in breathing. Notes he is doing incentive spirometry through out the day. He notes he will follow up with pulmonary as soon as all his urinary issues are taken care of. No change in sleep pattern reported. Patient has TCM follow up today with PCP at 1500. Patient is scheduled for INR at [facility] medication management on 08/25/24. Follow up with Dr. Patton 08/31/24 at 1215. CN explained the TCM program and gave CN contact number. Patient denies any further questions or concerns. Communication Events Date: August 24, 2024 Method: Phone call Type: Outbound Duration (min): 12 Outcome: Case discussion Contact Type: Patient Contact Name: EUGENIA GIL Notes: TCM#1- see (more content not included)... Normal [facility] Ambulatory Visit Summaryon 0 07-31-2024 Ambulatory Visit Summary Ambulatory Visit Summary EUGENIA GIL :1950 Visit Date:07/31/2024 Ambulatory Visit Instructions Your Diagnosis BPH with urinary obstruction Urinary retention Anticoagulated Your Care Team Attending Physician - Shahab [...] With: Zane GUERIN, Cortez Erwin Where: [address] [address]- Saturday 2:30 PM EDT With: Where: [address] [address]- You Need to Schedule the Following Appointments Follow Up with JENN GUERIN, ALYSSA Nicholas When: Where: [facility] [address], [place] [address] [phone] Medications What How Much When Instructions Unchanged [...] these instructions at home: Medicines ? Take wytf-lxv-kuoszck and prescription medicines only as told by [...] keep your urine pale yellow. ? Take ccdy-hex-hyrenti or prescription medicines. ? Eat foods that are high in fiber, such as beans, whole grains, and fresh fruits and vegeta (more content not included)... Normal [facility] Urology Office/Clinic Noteon 07-31-2024 Urology Office/Clinic Note [...] Retention of urine, unspecified) Pt presented to [facility] ER 07/07/23 for retention. Pt was [...] -F/u in 1 month 3. Anticoagulated (Z79.01: penitentiary (current) use of anticoagulants) on warfarin Stress test x 2 with inconclusive results. [2] Follow-up With When Contact Information JENN GUERIN, Shahab Carrasquillo, URL [facility] [address] , [place] [phone] Additional Instructions: 1 month Patient Education Transurethral Resection of the Prostate, Care After Elizabeth Bro, personally scribed for Dr. Patton on 07/31/2024 11:39:24. . Documentation recorded by the scribeElizabeth, accurately [...] drinks/episode ma (more content not included)... Normal [facility] Comment on above: Result Comment: Elec tronically Signed By: Shahab PATTON MD\.br\Date and Time Signed: 07/31/24 11:41 EDT\.br\Electronically Co-Signed By: Elizabeth Greenberg\.br\Date and Time Co-Signed: 07/31/24 11:39 EDT [facility] 07-28-20 [facility] Case Information Case Priority: None Programs: -- Referral Source: Casino Porter Referral Reason: Care coordination Case Type: Transition [...] see TCM note. Created By: Titus Tamayo [facility] 07-20-20 [facility] Case Information Case Priority: None Programs: -- Referral Source: Casino Porter Referral Reason: Care coordination Case Type: Transition [...] name, street address and date of verified Program Enrollment Provides verbal consent for enrollment [...] see TCM note. Created By: Titus Tamayo Normal [facility] Ambulatory Visit Summaryon 0 07-13-2024 Ambulatory Visit Summary Ambulatory Visit Summary EUGENIA GIL Mindy :1950 Visit Date:07/13/2024 Ambulatory Visit Instructions Your [...] Shahab PATTON MD Where: [facility] [address] [address]- Saturday 1:00 PM EDT With: Cortez Degroot MD Where: [facility] [address] [address]- Saturday 2:30 PM EDT With: Where: [facility] [address] [address]- Medications What How Much When Instructions Unchanged [...] for choosing us for your care. Normal [facility] Family Medicine Office/Clini c Noteon 07-13-2024 Family Medicine Office/Clinic Note Family Medicine Office/Clinic Note HPI Staff Eugenia is a 73 year old male presenting for [facility] hospital follow up (per Titus) TCM: Hospital: [facility] Admission date: 07/02/24 Discharge date: 07/03/24 the [...] with hypoxia) Will order PFTs to the [facility]. Will look for COPD. This is [...] Father. Immunizations Vaccine Date Status SARS-CoV-2 (COVID-19) [id number] 12/13/2022 Recorded SARS-CoV-2 (COVID-19) mRNA BNT-162b2 vax 10/30/2021 Recorded SARS-CoV-2 (COVID-19) mRNA BNT-162b2 vax 02/14/2021 Recorded SARS-CoV-2 (COVID-19) mRNA BNT-162b2 vax 01/23/2021 Recorded Normal [facility] Comment on above: Result Comment: Elec tronically [...] PM EDT With: Cortez Degroot MD Where: [address] [address]- Saturday 10:45 AM EDT With: Shahab PATTON MD Where: [facility] [address] [place] [address]- Saturday 2:30 PM EDT With: Where: [address] [address]- Medications What How Much When Instructions Unchanged [...] for choosing us for your care. [facility] Case Information Case Priority: None Programs: -- Referral Source: Casino Porter Referral Reason: Care coordination Case Type: Transition [...] Care Plan Progress Note Admit Date: 07/02/24 [facility] Date of Discharge: 07/03/24 Follow-up appointment [...] patient reach out to med management at [facility] and see if sooner INR needed [...] see TCM note. Created By: Titus Tamayo [facility] Pathology Request for Lab Co rpon 07-02-2024 Pathology Request for Lab S[place] Normal [facility] Comment on above: Order Comment: PATHO LOGY PROSTATE SPECIMEN Result Comment: See report. Scanned copy available in EMR. PERFORMED BY: [facility] [place] [place] [address] PATHOLOGIST BINGO CLERK SHARI MARTINEZ M.D. Performed By: #### P ATH TO [facility] #### [facility] [address] [id number] [facility] Ambulatory Visit Summaryon 0 [...] AM EDT With: Where: [facility] Invalid Interpretation Code [address] [place] [address]- \.br\ Saturday 10:45 AM EDT \.br\ With: JENN GUERIN, Shahab Carrasquillo\.br\ Where: [facility] Consent for Treatmenton 04-26 Consent for Treatment [id number]#1 .00TIFF Normal [facility] Formson 05-20-2024 Forms [id number]# 1.00TIFF [facility] Heart and Vascular Office/Cl inic Noteon [...] no rash or concerning lesions Cardiac Diagnostics LHC with Dr. Nino on 04/17/2024: LMT: Short [...] alternate imaging modality. Assessment/Plan 1. CAD in [place] artery (I25.10: Atherosclerotic heart disease of [place] coronary artery without angina pectoris) Patient did [...] and clif (more content not included)... Normal [facility] Comment on above: Result Comment: Elec tronically Signed By: Paul Barbosa PA-C\diana\Date and Time Signed: 05/20/24 10:42 EDT Physician Orderon 05-20-2024 Physician Order [id number]# 1.00TIFF [facility] Coding Queryon 05-15-2024 Coding Query - [...] Subject: RE: Coding Query Caller Name: EUGENIA GIL; Caller Number: Chris , It was not done, I put an addendum [facility] Coding Summary.on 05-15-2024 Coding Summary. MQNTQjkm07KCx7oUv+PG h lYWQ+RP3UJNIgN53uqNGi tG5mA4EXBBzITylpQWVPV PeWAfSxacQpPG7qvIDzLX Ju IC8+DD9lQKUgDjxcoPDxs 4E3aGM6X45kof8gIWlevG O1VACqNjNhxcdbi3rkuNm 6IDcuNmluOyBt LPYiiC85UIM8aC76Fw55p OUafVGox7mlpOf3HrXpYH IkQVH5nSxrDKqwj4JkLTV nY18paPJtg3Q1 NZQoxDqcoTDuXuYufNS5y J8xBFpildysz8svvnglDb h4oq63kVXbb2M7uVJ6B0R vsxE4JEKopRFp KcukoESFkQ5wxpmut6nzn xkmGyLbNNQfIIx4SHk8VE GqtQskUkBhTG43VET9LQG ajnHpO3IkAYRa aEqpYvV3h7K5Sl7PL2BOF vffJ5QOJRUYDDvvrWE+PC 52jf30A9TnKkdgOan3JRG qXOS1pBH4qR2o WPMzQQist0X6gHY8G9Alu pOwhb7ok6isEYBnJPbqA8 2ijGSnd1D0FPRorWS9PXO dtQgaDpEatH59 Oyc+DTNtzTzkx8PjLafzm 1jcm4hniIi3FbvzNKCyzw IomWkwBSR7w4HkXp4sGOL svFZ0sPL2vG3c MuDeNoU4JBweU085OzAon VVqHsqnF50kQ1RngJZ+PH YjFcl0QQSzkCauLX9lH2W hZGRpbmctbGVm uAimPW7bSJPfhrtcGVLso A9wUXRqL7w8ToNtZoJ1WO jfZ1HtFIImfijlQb56vX7 fErRoWtK7WAqf E0EghmF9NMPqcFBfLUyjV HH9M63qj3E9IVCuZVToXC L7gCM0qW6wnWuxyuqejGM mdDsgdmVydGlj QTgxALzeC928VQIegGlqC kNvZGluZyBEYXRlOiAgMD YvMjEvMjAyNDwvdGQ+PHR nCYY8jOttMFPy xXAgGCsiLt4nhCylqCsvO S4oJSTlucrwBMBqhH2cWH UybGXlxSvvUR6tUPBsaer dg877AyOvIGJ1 IAAjvKJjP1HuxY4oVsGoJ CKaGYPxP3CaaFPyFXfxK2 44YRxdXjK2IJPewnCgD9O sLWFsaWduOiB0 y0P9Dg4Ot3XvikfwS5Vrp HKjGeDzYmijVYn8C3ThVg wvdHI+AH36JDEfNK49MQz 1SAW8eQjhAJse BZOqU1KopO7dWzLlXPJwX GRkOyc+PHRhYmxlIHdpZH RoPScxMDAlJyBzdHlsZT0 sFr4kDJMpILVy sJyecLZjMaMam5hxBRJfY WnhFD3bnKcxL0XyeDA6YA Kti9g2Bp67B93wU6IarBL +MHOucVN2jJO5 gM5bNwLoJvY0TBazT129O sDftXOkXjgus6aon9fyxQ u3WkQ4ETZdllDuoIejHUI 5v4EgGa67M07c IHdpZHRoPSIxNSUiIHZhb Uxolv1csB7zRp3+PGNvbC X6iUG7aU4hSwAsOaY5KHe kI672DrPekDIm Imexi2hbq9hvgGw5MqImO KGdchGyfOiqLBK5f4JsCj 05E6AzqSmbk9VrCtm4be5 0bPUcv1R6kAK9 K8VbPJPsjofqjZNxkGivE S6pOJZykiunEUXhbM5dDE JoB3c4QmNyJfY1YYbpW0Z olbQ8QXDacREl KVIgoMJYeA2xcumdg6ufe gpqOjZiGYKrKAg0BXe0VA OhjFrvSpPmBVK5KuY2IWE 7yHDuyZ1xlGms rmsctA6fPql+IDR8sCCsq WSGGG1cVdkvjVQ+PHRkIH X8cIayAOkaTSOsfJ7oVCK vY7i9AjOoUwC8 UKtvV8MeikW5QOHguEKgR PDkqXJKgY3rvjnct5hoah reWcSzFVIcOBx9YQj1PTK saWduOiBsZWZ0 KyG9PBB0fPWcqU3wsNbkb rmmuS9mAkx+QmlydGggRG J6UIx6G3OnVwt7ZDHnhWx vGR2gfAFwUEkj Xj2inOstiPraXP9dMHFkr fqsx217AkGal3rcOHOpvN MbFFdgDOF7Q95xk5S2AEO lLCVvSGE6eOC8 kF3ruYsthyndoQMjvBrdx zVfxXwtESffUXrdT620CP GojMlhQsZsIDu2G3JoYci 4YKBqsTkyBA1y sLKmREwjGz5jtWkicDjwJ M1pCORivxyhz462HiHgi2 ojRSZfxNSzDPmwJPF7E58 sb2U4CCNgXQOo RUT0bAX9yQ6gbUeucplrk GVmdDsgdmVydGljYWwtYW xsC211XYUjpQczGvZumDb 3G3YgHao9WMWt rEsgYP3hhBPnKTlsWt9jw MhjyCdcJC3hLKExyiwmf0 90DgDoo2axQJPorJXwKVt lWNV1R59iy3Y2 TSZvYPIuPWL2pKR7lN8em GlnbjogbGVmdDsgdmVydG dpHHpkMIbtI361RVIqlJw nPlBhdGllbnQg KHghDRt4F9MjJzjptWC+P W40BOUaYA07nPPghEDxx5 mjsVc8YbZoJAGuZML9vWi eHIeyn2NzOQEb D24pgVNtm8U4SYXbvPjbs PWcMoZuyFH1wA9iDByehp msu9goczucIucua1vhfl0 2qS44Q38wUWmg ZHRoPSIzMCUiIHZhbGlnb o8uzG4dNf7+QNZpeOA5kN O9yM9fDUDzFtB0XMyhG57 9InRvcCIvPjxj r4ure2fhhJo0LgZ9OAGpi oNxjKybRCT3h9MzVj26F0 9sIHdpZHRoPSIyMCUiIHZ xyHzwtt4qjH6w Ii8+CGCmkDR0uEU5dQ7nQ fDqYfI7EMqwK812HnKoeK WkSrcpS94eJ4IdiLO+PHR zIvn5IZDzzNgj JA1ojGBrGHhoGb8rHZQ9S zYuYmSzWUbvE1MpGTUdrq qprnhjdRR1YULjVZXbxS6 5Ku2xcFbjHWIz jIEQwO1cpqfxc6hvabczO wQmVMDsQQc3FFz0RSXazC smKlQeSVW1PqD5YZE6uFR ptX9aiRhtfkoc tQ6xO3JgDOKwayznJg33l Q1yJjMmWoY4NOzcNuz+Sk 9ITlNPTiwgSkFNRVMgRDw vdGQ+PHRkIHN0 tUwzAOomUFRfbO6qXWViB 7r6PlXlBjO2SHcwC8WrRW LkapriNg77mR8xIqUtRpW 0YJmqK3TjaaC0 DDEwnFRjWEhuTRE7Y67av 8X4PWAiJJYrLCH7kMR8iB 1hbGlnbjogbGVmdDsgdmV ydGljYWwtYWxp Q477DTSygXddGjYuEkC2X wZ4DME6T8UgTat5VYCweW cqND7ejLBbRYhyOs0vkOy doShiAT9qIVPa aasoQXZggY3ePQLrhERsm NukDC5aIHNzjitdy562Gc EgWZH0AJGziMBzL9OylW1 yOiAjMDAwMDAw J0GfuWHhDUqiM885UTdeR bU6FFQxmhYsS2RqMNOhoM brNuF4z5E1Is11PQZCQBF yczwvdGQ+PHRk BSO8eHipEDhhPEUodD7zQ YDjQ5x7GyTwEnJ8ORkpK4 XuAOHuatqmZa55xF0kDcX fNcI4OBmqT5Be puP3LZHwhTQkATwjQFY5V 68bs3V0WGSxUMEnJAH2uU W4nC1ltFyoayqnxWPzuBp gdmVydGljYWwt YOvzX993EEZesCsePm8fl HS6U7OzRxz5HTUjfGybKY 7foJOxIBxrFj7zcQwzkLa aWC2bGNKxzhah CXPdkI7zBVXjjDIhcUstL C5yFNNbnakif013SzJhUD A4LCHabSThB3AgmJ3rWsW nFBUbVSMrU9Tk pFNeORguH260NHywMuF6A GVgdqVcD6HeYWJkqVveZn G6n2N3Nj1OuHB0lRL5p4J 4Z2EkkHWdHGN2 DPX5ijxwbzy1M1QrIbrnc HI+ZJ31YGXhET55zCCluG Ezx9lysSr3LjLkRULwRSQ 7eTauJIcgr4Ke NJXmG51izHVgt2P0IAEzi WcufOCvHrQryTG7iB9fHQ wqlddab6fitlbzNofkf7q ocm73zC81N64m IHdpZHRoPSIzMCUiIHZhb Pxacr9uaJ0nQz7+PGNvbC H5fQC5jI4kEgZcGrN5KJv hO688UzPfaBEx Kceaf6bpa2jngUi4WtNtQ EQrabDrpJksZFY6l1NpTd 39M25cIWpoFANaVOOjKWC yLNIqzHkqae7n eO5bYc8+ZF6ai6ofhi45o D48dHI+CBOyNEO9pMoiPV ziZLMwyT9tQUnkGeK3PKD mJrVsoW45qQGy EObzPd0yjYcdlGrkZW2jB LPdutfkq794PlWnt8qbCH BxgIGyKZpdVMG6S98ps6T 1TZPxKUBgXQJ7 uBB7dD0ruBlkuvtczXKwj DsgdmVydGljYWwtYWxpZ2 57UAZllBkxCyZclXCpV2y uemTAEF2wYcci dGQ+LGIjQOA0nPrjPRgjC BQmjO5dYWIhY9e2WtOmPo K5SRajD6QwjrT0QYBhrJE qTJOlkZVQoS2q alboe3eomdpkVnLbZKRuZ Xk8OPe1BWBmbQhaRdQmJK X9DtJ8PVP7tDCgiI8pcOe ilurexL0iIfg+ RklOOjwvdGQ+NZUkXLK4n ZobMTbpPUBlwP3qEBVqV3 l7OpTpWnZ8XZblG4EkoxD 6IGJvbGQgMTBw yCHNnX2lucwem8ujkdftV sPgROWrTDf3YRh8ZPJxgW llDsEfQNN5PoP8YNG2bTY xwL8bzIncvyig uN0eDyp+TVJOOjwvdGQ+P DIjLDZ4oZlsAWzfUJJutI 0bIBJkG7t0FwGqFsJ1EAn tC0AwsbR1GSMl jHXrXKQgyABQjZ4ubtuci 9zjolsfMnCePSZjJEx7CR k6QBNmaOwgLgGgONL4XcE 3AJG1dVMcqQ7g dEzfkwkrgR0oEfx+UGF5Z OH2FV98CD16G9MsGmmpsT FibGU+PHRhYmxlIHdpZHR oPScxMDAlJyBz oGkdOY0wLt8mA (more content not included)... Normal [facility] Operative Reporton 4 Operative Report [...] consent the patient was brought to the County Nurse where sterile prep and drape were administered in usual fashion. Anesthesia was obtained in the right wrist with lidocaine after administration of conscious sedation. A 5/6 slender Terumo sheath was placed in the right radial artery without complication. Nitroglycerin and nicardipine were given via the sheath and heparin was given intravenously. A 5 [place] JACKE catheter was advanced and selectively engaged [...] inaccurate, left ventriculography was not done. Normal [facility] Comment on above: Result Comment: Elec tronically [...] APRN, [place] X Where: [facility] Invalid Interpretation Code [address] [place] [address]- \.br\ Saturday 2:30 PM EDT \.br\ With:\.br\ Where: [facility] Family Medicine [facility] Family Medicine Office/Clini c Noteon 05-12-2024 [...] Comments : Wears corrective lenses, goes to [facility] for eye exams. Akua Metz LPN - 05/11/2024 13:00 EDT FT Whisper Test Comments : No deficits noted. Akua Metz LPN - 05/11/2024 12:50 EDT Advance Directive FT Patient [...] EDT Procedure Dt/Tm: 04/17/2024 ; Provider: Aditya Nnio MD; Anesthesia Minutes: 0 ; Procedure Name: [...] Akua Metz LPN - 05/11/2024 13:00 EDT [facility] (more content not included)... Normal [facility] Comment on above: Result Comment: Elec tronically Signed By: Cortez Degroot MD\.br\Date and Time Signed: 05/12/24 12:44 EDT\.br\Electronically Co-Signed By: Akua Metz LPN\.br\Date and Time Co-Signed: 05/11/24 14:08 EDT Lab Reportson 05-12-2024 Lab Reports [id number]#1 .00TIFF [facility] Screenson 05-12-2024 Screens [id number]#1. 00TIFF [facility] Ambulatory Visit Summaryon 0 05-11-2024 Ambulatory [...] PM EDT With: Where: [facility] Invalid Interpretation Code [address] [place] [address]- \.br\ Saturday 2:30 PM EDT \.br\ With:\.br\ Where: [facility] Ambulatory Visit Summary EUGENIA GIL :1950 [...] PM EDT With: Where: [facility] Invalid Interpretation Code [address] [place] [address]- \.br\ Saturday 2:30 PM EDT \.br\ With:\.br\ Where: [facility] Family Medicine Office/Clini c Noteon 05-11-2024 [...] Father. Immunizations Vaccine Date Status SARS-CoV-2 (COVID-19) mRNAMUL.ORD![id number] 12/13/2022 Recorded SARS-CoV-2 (COVID-19) mRNA BNT-162b2 vax 10/30/2021 Recorded SARS-CoV-2 (COVID-19) mRNA BNT-162b2 vax 02/14/2021 Recorded SARS-CoV-2 (COVID-19) mRNA BNT-162b2 vax 01/23/2021 Recorded Normal [facility] Comment on above: Result Comment: Elec tronically [...] provider. Document Revised: 09/28/2021 Document Reviewed: 09/28/2021 Coub Patient Education ? 2022 [employer]. Oncology Lung Cancer Screening A lung cancer screening is a test that checks for lung cancer when there are no symptoms or history of that disease. The s (more content not included)... Normal [facility] Cardiovascular Reporton Cardiovascular Report [id number]# 2.00TIFF [facility] Consent for Procedure/Surger yon 04-21-2024 Consent for Procedure/Surgery [id number] #1.00TIFF [facility] Discharge Instructionson Discharge Instructions [id number] #1.00TIFF [facility] COAGULATIONOrdered By: Jered Perla on 04-17-2024 aPTT Coag (PPP) [Time] 35.1 s Normal 25.1 - 36.5 second(s) [facility] Auto Coag Comment on above: Interpretive Data: [...] the same coagulation reagent and instrumentation as [facility]. Currently there are no coagulation studies available worldwide for children to 14 days, and no normal ranges. Heparin therapeutic range (represented by Anti-Factor Xa activity of 0.2 - 0.4 U/mL) corresponds to PTT of 56.6 - 109.0 sec. INR Coag (PPP) [Relative time] 1.04 {INR} Invalid Interpretation Code [facility] Auto Coag Comment on above: Interpretive Data: I NR results are specifically intended to assess patients stabilized on long-term Anticoagulation therapy suggested INR s Less Intensive Anticoagulation 2.0 3.0 Conventional Range 3.0 4.5 PT Coag (PPP) [Time] 11.7 s Normal 9.4 - 1 2.5 second(s) [facility] Auto [facility]ag Comment on above: Interpretive Data: [...] the same coagulation reagent and instrumentation as [facility]. Currently there are no coagulation studies available worldwide for children to 14 days, and no normal ranges. Consent for Treatmenton 03-26 Consent for Treatment [id number]#1 .00TIFF Normal [facility] Inpatient Clinical Summaryon 04-17-2024 Inpatient Clinical Summary [address] [address] Clinical Summary Person Information: Name: EUGENIA GIL Age: 73 Years : 1950 Sex: Male PCP: Ross MD, Cortez E. Marital Status: Single Race: White Ethnicity: Non- or Language: [place]an Visit Id: Visit Reason: R07.9 R06.09 R06.02 Z01.818 Speciality: Acuity: Enc Type: Ambulatory/Same Day Surgery Med Service: Cardiovascular Arrival: 04/17/2024 06:57:58 Discharge: Dispo Type: Address: [address] [place] [phone] Provider Notes: Diagnosis: Problems Active Knee pain [...] Nino MD Follow up: With: Address: When: [place] [address] [phone] Business (1) 05/20/2024 9:45 AM Type Location Start Finish State FM Medicare Wellness Subsequent [facility] 05/11/2024 1:00 PM 05/11/2024 2:00 PM Confirmed FM Open [facility] 05/11/2024 2:00 PM 05/11/2024 2:15 PM Confirmed URO Nurse Visit [facility] 05/12/2024 1:00 PM 05/12/2024 1:15 PM Confirmed Cardiology Follow Up (FT) [facility] 05/20/2024 9:45 AM 05/20/2024 10:00 AM Confirmed Patient Education Information: Cardiovascular Discharge Instructions - Revised 11/16/15 (CUSTOM) [facility] Inpatient Clinical Summary [address] [address] Clinical Summary Person Information: Name: EUGENIA GIL Age: 73 Years : 1950 Sex: Male PCP: Cortez Degroot MD Marital Status: Single Race: White Ethnicity: Non- or Language: [place]an Visit Id: Visit Reason: R07.9 R06.09 R06.02 Z01.818 Speciality: Acuity: Enc Type: Ambulatory/Same Day Surgery Med Service: Cardiovascular Arrival: 04/17/2024 06:57:58 Discharge: Dispo Type: Address: [address] [place] [phone] Provider Notes: Diagnosis: Problems Active Knee pain [...] Start Finish State FM Medicare Wellness Subsequent [facility] [place] 05/11/2024 1:00 PM 05/11/2024 2:00 PM [facility]irmed [facility] 2:00 PM 05/11/2024 2:15 PM Confirmed URO Nurse Visit [facility] 05/12/2024 1:00 PM 05/12/2024 1:15 PM Confirmed Patient Education Information: Cardiovascular Discharge Instructions - Revised 11/16/15 (CUSTOM) [facility] Inpatient Patient Summaryon 04-17-2024 Inpatient Patient Summary [address] [id number] Patient Discharge Instructions PERSON INFORMATION Name: EUGENIA [...] Follow up: With: Address: When: Paul Barbosa [address] [place] [address] [phone] Business (1) 05/20/2024 9:45 AM In the event that this physician does not participate in your insurance network, please consult with your insurance company to find a nearby participating provider. Type Location Start Finish State FM Medicare Wellness [facility]11[facility] 1:00 PM 05/11/2024 2:00 PM Confirmed [facility] 05/11/2024 2:00 PM 05/11/2024 2:15 PM Confirmed URO Nurse Visit [facility] 05/12/2024 1:00 PM 05/12/2024 1:15 [...] IRASEMA Day Comment: PATIENT EDUCATION INFORMATION Instructions: [place], [place] DISCHARGE INSTRUCTIONS Diet: ? Resume pre-procedure [...] smoking f (more content not included)... Normal [facility] Inpatient Patient Summary [address] [id number] Patient Discharge Instructions PERSON INFORMATION Name: EUGENIA GIL Mindy Date of : 1950 Current Date: 04/17/2024 [...] a nearby participating provider. Type Location Start [facility] Medicare Wellness Subsequent [facility] 05/11/2024 1:00 PM 05/11/2024 2:00 PM Confirmed FM Open [facility] 05/11/2024 2:00 PM 05/11/2024 2:15 PM Confirmed URO Nurse Visit [facility] 05/12/2024 1:00 PM 05/12/2024 1:15 [...] IRASEMA Day Comment: PATIENT EDUCATION INFORMATION Instructions: [place], [place] DISCHARGE INSTRUCTIONS Diet: ? Resume pre-procedure [...] you are interested in smoking cessation, contact [facility] at [phone], ext. [phone]. ? In the event you are unable to reach your physician, please (more content not included)... Normal [facility] PT & PTTon 04-17-2024 aPTT Coag (PPP) [Time] 35.1 second(s) Normal 25.1-36.5 [facility] Comment on above: Order Comment: if on [...] the same coagulation reagent and instrumentation as [facility]. Currently there are no coagulation studies available worldwide for children to 14 days, and no normal ranges. Heparin therapeutic range (represented by Anti-Factor Xa activity of 0.2 - 0.4 U/mL) corresponds to PTT of 56.6 - 109.0 sec. Performed By: #### 1 [id number] ####[facility] [address] [place] [address] INR Coag (PPP) [Relative time] 1.04 {INR} Invalid Interpretation Code [facility] Comment on above: Order Comment: if on Coumadin. Draw day of procedure and notify MD if abnormal Result Comment: INR results are specifically intended to assess patients stabilized on long-term Anticoagulation therapy suggested INR?s ?Less Intensive Anticoagulation? 2.0 ? 3.0 Conventional Range 3.0 ? 4.5 Performed By: #### 1 [id number] ####[facility] [address] [place] [address] PT Coag (PPP) [Time] 11.7 second(s) Normal 9.4-12.5 [facility] Comment on above: Order Comment: if on [...] ranges were obtained from a study by tonei Wise. prepared from 1437 samples obtained at 7 different centers using the same coagulation reagent and instrumentation as [facility]. Currently there are no coagulation studies available worldwide for children to 14 days, and no normal ranges. Performed By: #### 1 [id number] ####[facility] [address] [place] [address] Patient Education - Texton 0 04-17-2024 Patient Education - Text [place], [place] DISCHARGE INSTRUCTIONS Diet: ? Resume pre-procedure [...] you are interested in smoking cessation, contact [facility] at [phone], ext. [phone]. ? In the event you are unable to reach your physician, please call [facility] at [phone] and the grapple skidder operator will assist you. Discharging Nurse Physician Date/Time Patient or Responsible Constitution Party Revised 07-02, 03-03, 12-07, 11-08 Normal [facility] Patient Education - Text [place], [place] DISCHARGE INSTRUCTIONS Diet: ? Resume pre-procedure [...] you are interested in smoking cessation, contact [facility] at [phone], ext. [phone]. ? In the event you are unable to reach your physician, please call [facility] at [phone] and the grapple skidder operator will assist you. Discharging Nurse Physician Date/Time Patient or Responsible Constitution Party Revised 07-02, 03-03, 12-07, 11-08 Normal [facility] Patient Educationon 04-14-20 Patient Education Urology Benign [...] Follow these instructions at home: ? Take zgtb-clj-tkzcmoj and prescription medicines only as told by [...] the medicine (more content not included)... Normal [facility] Urology Office/Clinic Noteon 04-14-2024 Urology Office/Clinic Note Chief Complaint 5 week cath change w/ Rae HPI Staff Patient here today for 5 week cath change w/ Rae History of Present Illness I have reviewed and verified the staff HPI to be accurate for this encounter. Portions of this record may have been created with voice recognition artificial intelligence software, specifically K[employer], [employer] and or [employer]. Substitutions may have occurred due to the [...] Retention of urine, unspecified) Pt presented to [facility] ER 07/07/23 for retention. Pt was [...] Hg (Most Recent) 3074F 4. Anticoagulated (Z79.01: pen[facility]entiary (current) use of anticoagulants) on warfarin Stress test x 2 with inconclusive results. Patient states that he is scheduled for cardiac cath next week. Other obstructive and reflux uropathy (N13.8: Other obstructive and reflux uropathy) Orders: oxybutynin, See Instructions, PRN for urinary discomfort, 1 tab po q 6 hrs PRN bladder spasms/leaking around [place], up to TID, # 30 tab(s), Refills(s) 3, [id number], 180, cm, 10/08/23 12:12:00 EST, Height/Length Dosing, 123, kg, 10/08/23 12:12:0... oxybutynin, See Instructions, PRN for urinary discomfort, 1 tab po q 6 hrs PRN bladder spasms/leaking around [place], up to TID, # 30 tab(s), Refills(s) 3, [id number], 180, cm, 04/14/24 12:37:00 EDT, Height/Length Dosing, 154.3, kg, 04/14/24 12:37... Follow-up With When Contact Information ELEAZAR Luis APRN, Rae Schmidt, DARIUS, URL Additional Instructions: or another BELA for [...] times per (more content not included)... Normal [facility] Comment on above: Result Comment: Elec tronically Signed By: ELEAZAR Luis APRN, Rae Schmidt\.br\Date and Time Signed: 04/14/24 13:24 EDT Insurance Correspondenceon 0 04-08-2024 Insurance Correspondence [id number]# 1.00TIFF Normal [facility] Progress Note-Physicianon Progress Note-Physician [id number]# 1.00TIFF Normal [facility] BMPon 04-07-2024 Anion gap [Moles/Vol] 13 mmol/L Normal 6-16 [facility] Comment on above: Performed By: #### 2 [id number], [id number], [id number] ####[facility] [address] [place] [address] Calcium [Mass/Vol] 9.6 mg/dL Normal 8.9-11.1 [facility] Comment on above: Performed By: #### 2 427383, [id number], [id number] ####[facility] [address] [place] [address] Chloride [Moles/Vol] 102 mmol/L Normal 101-111 [facility] Comment on above: Performed By: #### 2 280405, [id number], [id number] ####[facility] [address] [place] [address] CO2 [Moles/Vol] 26 mmol/L Normal 21-31 [facility] Comment on above: Performed By: #### 2 224487, [id number], [id number] ####[facility] [address] [place] [address] Creatinine [Mass/Vol] 1.2 mg/dL Normal 0.5-1.3 [facility] Comment on above: Performed By: #### 2 071126, [id number], [id number] ####[facility] [address] [place] [address] Glucose [Mass/Vol] 123 mg/dL Normal 55-199 [facility] Comment on above: Performed By: #### 2 989656, [id number], [id number] ####[facility] [address] [place] [address] Potassium [Moles/Vol] 4.5 mmol/L Normal 3.5-5.3 [facility] Comment on above: Performed By: #### 2 050815, [id number], [id number] ####[address] [address] Sodium [Moles/Vol] 136 mmol/L Normal 135-145 [facility] Comment on above: Performed By: #### 2 758400, [id number], [id number] ####[address] [address] Urea nitrogen [Mass/Vol] 18 mg/dL Normal 5-21 [facility] Comment on above: Performed By: #### 2 829171, [id number], [id number] ####[address] [address] Urea nitrogen/Creatinine [Mass ratio] 15 No Units Normal 10-20 [facility] Comment on above: Performed By: #### 2 734079, [id number], [id number] ####[address] [address] CBC w/ Auto Diffon 4 Basophils/100 WBC (Bld) 1.0 % Normal 0.0-2.0 [facility] Comment on above: Performed By: #### 2 086968, [id number], 7765406 ####[address] [address] Basophils/Leukocytes Auto (Bld) [Pure # fraction] 0.1 E9/L Normal 0.0-0.2 [facility] Comment on above: Performed By: #### 2 771902, [id number], [id number] ####[address] [address] Eosinophils (Bld) [#/Vol] 0.2 E9/L Normal 0.0-0.5 [facility] Comment on above: Performed By: #### 2 547429, [id number], [id number] ####[facility] [address] [place] [address] Eosinophils/100 WBC (Bld) 2.2 % Normal 0.0-8.0 [facility] Comment on above: Performed By: #### 2 871031, [id number], [id number] ####[address] [address] Erythrocyte distribution width (RBC) [Ratio] 17.1 % High 10.9-14.2 [facility] Comment on above: Performed By: #### 2 226716, [id number], [id number] ####[address] [address] Hematocrit (Bld) [Volume fraction] 45.3 % Normal 37.7-49.0 [facility] Comment on above: Performed By: #### 2 589166, [id number], [id number] ####[address] [address] Hemoglobin (Bld) [Mass/Vol] 14.5 g/dL Normal 13.5-17.5 [facility] Comment on above: Performed By: #### 2 005429, [id number], 6698151 ####[address] [address] Lymphocytes (Bld) [#/Vol] 1.2 E9/L Normal 1.0-4.0 [facility] Comment on above: Performed By: #### 2 816783, [id number], 0898978 ####[address] [address] Lymphocytes/100 WBC (Bld) 16.1 % Normal 14.0-50.0 [facility] Comment on above: Performed By: #### 2 438869, 60653018, 0189845 ####[address] [address] MCH (RBC) [Entitic mass] 25.7 pg Low 27.0-34.0 [facility] Comment on above: Performed By: #### 2 687458, [id number], 2017524 ####[facility] [address] [place] [address] MCHC (RBC) [Mass/Vol] 32.0 g/dL Normal 31.4-36.0 [facility] Comment on above: Performed By: #### 2 195422, [id number], 2879712 ####[address] [address] MCV (RBC) [Entitic vol] 80.4 fL Normal 80.0-100.0 [facility] Comment on above: Performed By: #### 2 592938, [id number], 8510625 ####[address] [address] Monocytes (Bld) [#/Vol] 0.8 E9/L Normal 0.2-1.0 [facility] Comment on above: Performed By: #### 2 451137, 91913741, 8526299 ####[address] [address] Neutrophils (Bld) [#/Vol] 5.2 E9/L Normal 2.0-7.5 [facility] Comment on above: Performed By: #### 2 986632, 02717949, 9597606 ####[address] [address] Neutrophils/100 WBC (Bld) 70.3 % Normal 36.0-75.0 [facility] Comment on above: Performed By: #### 2 494089, 89501914, 4669312 ####[address] [address] Platelet mean volume (Bld) [Entitic vol] 7.9 fL Normal 6.4-10.8 [facility] Comment on above: Performed By: #### 2 921941, 49463897, 5917462 ####[address] [address] Platelets (Bld) [#/Vol] 242.0 E9/L Normal 150.0-500.0 [facility] Comment on above: Performed By: #### 2 369091, 61570338, 7864472 ####[facility] [address] [place] [address] RBC (Bld) [#/Vol] 5.6 E12/L Normal 4.3-5.9 [facility] Comment on above: Performed By: #### 2 241364, 27940531, 8341011 ####[facility] [address] [place] [address] WBC corrected for nucl RBC Auto (Bld) [#/Vol] 7.4 E9/L Normal 4.0-11.0 [facility] Comment on above: Performed By: #### 2 743375, 76193830, 4012119 ####[facility] [address] [place] [address] CHEMISTRYOrdered By: SYSTEM SYSTEM on 04-07-2024 Anion [...] Treatmenton 03-25 Consent for Treatment [id number]#1 .00TIFF Normal [facility] Consent for Treatment [id number]#1 .00TIFF Normal [facility] HEMATOLOGYOrdered By: SYSTEM SYSTEM on 04-07-2024 Basophils/100 [...] E9/L Remisol [facility]e Heart and Vascular Office/Cl in Noteon 04-07-2024 Heart and Vascular Office/Clinic [...] with voice recognition artificial intelligence software, specifically Klique, [employer] and or Armetheon. Substitutions may have occurred due to the [...] tobacco co (more content not included)... Normal [facility] Comment on above: Result Comment: Elec tronically Signed By: Chelsey ODOM, Paul Perez\.br\Date and Time Signed: 04/07/24 14:52 EDT eGFRon 04-07-2024 eGFR 64 mL/min/1.73 m2 Normal >=59 [facility] Comment on above: Order Comment: Order added by Discern Expert. Performed By: #### 2 429388, [id number], 7054091 ####[facility] [address] [place] [address] Physician Referralon 024 Physician Referral [id number]#1 .00TIFF [facility] Lab Reportson 03-30-2024 Lab Reports [id number]#1 .00TIFF [facility] Ambulatory Visit Summaryon 0 03-09-2024 Ambulatory [...] PM EDT With: Where: [facility] Family Medicine Office/Clini c Noteon 03-09-2024 [...] Hg (Most Recent) 3075F 6. 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 Normal [facility] Comment on above: Result Comment: Elec tronically Signed By: Zane GUERIN, Cortez Johnson\Date and Time Signed: 03/09/24 15:08 EDT Lab Reportson 02-13-2024 Lab Reports [id number]#1 .00TIFF Normal [facility] Ambulatory Visit Summaryon 0 02-11-2024 Ambulatory Visit [...] PM EDT With: Cortez Degroot MD Where: [facility] [address] [place] [address]- \.br\ Saturday 1:15 PM EDT \.br\ With: Mica GUERIN, Aditya Orta\.br\ Where: [facility]\.br\ Medications\.br\ What How Much When Instructions\.br \ [...] for choosing us for your care.\.br\ \.br\ [facility] Stress EKG Tracingson 2023 Stress EKG Tracings [id number]#1. 00TIFF Normal [facility] Consent for Treatmenton 01-23 Consent for Treatment [id number]#1 .00TIFF Normal [facility] Lab Reportson 01-07-2024 Lab Reports [id number]#1 .00TIFF Normal [facility] Ambulatory Visit Summaryon 0 12-30-2023 Ambulatory Visit [...] AM EST With: Where: [facility] [place] [id number]- \.br\ Saturday 1:15 PM EDT \.br\ With: Mica GUERIN, Aditya Orta\.br\ Where: [facility]\.br\ Medications\.br\ What How Much When Instructions\.br \ [...] knee.\.br\ General instructions\.br \ ? \.br\ Take fhoy-ekb-ssiwvep and prescription medicines only as told by [...] provider.\.br\ Document Revised: 04/26/2021 Document Reviewed: 04/26/2021 [employer] Patient Education ? 2022 Elsevier Inc.\.br\ \.br\ [facility] Medicine Office/Clini c Noteon 12-30-2023 Family Medicine [...] have the treadmill test now?? And if motor builder assembler has to clear him why does he [...] Father. Immunizations Vaccine Date Status SARS-CoV-2 (COVID-19) mRNAMUL.ORD![id number] 12/13/2022 Recorded SARS-CoV-2 (COVID-19) mRNA BNT-162b2 vax 10/30/2021 Recorded SARS-CoV-2 (COVID-19) mRNA BNT-162b2 vax 02/14/2021 Recorded SARS-CoV-2 (COVID-19) mRNA BNT-162b2 vax 01/23/2021 Recorded Normal [facility] Comment on above: Result Comment: Elec tronically [...] under your knee. General instructions ? Take etcm-jub-lukrjdf and prescription medicines only as told by [...] provider. Document Revised: 04/26/2021 Document Reviewed: 04/26/2021 Coub Patient Education ? 2022 [employer]. [facility] Pre-Certification Formon Pre-Certification Form [id number]#1 .00TIFF [facility] Insurance Correspondenceon 0 12-25-2023 Insurance Correspondence [id number]# 1.00TIFF [facility] NM Myocardial Spect Part 2on 12-24-2023 [...] Stress Dose (mCi Tc99M Cardiolite): 29.1 Normal [facility] Stress EKG Tracingson 2023 Stress EKG Tracings [id number]# 1.00TIFF Normal [facility] Consent for Treatmenton 11-26 Consent for Treatment [id number]#1 .00TIFF Normal [facility] Heart and Vascular Office/Cl inic Noteon 12-19-2023 [...] cardiac issues and has not seen a motor builder assembler in the past. He occasionally experiences a [...] with voice recognition artificial intelligence software, specifically Klique, [employer] and or Armetheon. Substitutions may have occurred due to the inherent limitations of voice recognition and artificial intelligence software. Documentation services were performed after patient or guardian consented to allow [employer] to record this visit. YENI tuberculosis specialist and provider reviewed before signing. YENI: [...] Known A (more content not included)... Normal [facility] Comment on above: Result Comment: Elec tronically Signed By: Mica GUERIN, Aditya Orta\.br\Date and Time Signed: 12/19/23 18:28 EST\.br\Electronically Co-Signed By: Mare Cherry\.br\Date and Time Co-Signed: 12/13/23 12:06 EST Physician Orderon 12-13-2023 Physician Order [id number]# 1.00TIFF Normal [facility] Ambulatory Visit Summaryon 0 12-09-2023 Ambulatory Visit Summary KANDICE EUGENIA Guillen :1950 Visit Date:12/09/2023 Ambulatory Visit Instructions Your Care Team Attending Physician - JENN GUERIN, Shahab Carrasquillo Primary Care Physician - Cortez Degroot MD This Is Your Medications List oxybutynin (oxybutynin 5 mg Tab) tamsulosin (tamsulosin 0.4 mg Cap) warfarin What to do next Scheduled Follow-Up Appointments Saturday 10:15 AM EST With: Mica GUERIN, Aditya Orta Where: [facility] 2023 8:00 AM EST With: Where: Cardiovascular Services 2023 9:00 AM EST With: Where: Nuclear Medicine 2023 10:00 AM EST With: Where: Nuclear Medicine Saturday 2:30 PM EST With: Where: Nuclear Medicine Saturday 3:30 PM EST With: Where: Nuclear Medicine Saturday 3:00 PM EST With: Cortez Degroot MD Where: [facility] [place] Normal [address] [place] [address]- \.br\ Medications\.br\ What How Much When Instructions\.br [...] for choosing us for your care.\.br\ \.br\ [facility] Insurance Correspondenceon 0 12-03-2023 Insurance Correspondence [id number]#1 .00TIFF Normal [facility] Family Medicine Office/Clini c Noteon 12-02-2023 Family Medicine Office/Clinic Note HPI Staff Eugenia is a 73 year old male presenting for surgical clearance Surgery scheduled for 12/05/23 w/ Dr Patton for a TURP at [facility] PAT testing is 11/21/23 flu: due [...] 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 Portions of this record may have been created with voice recognition artificial intelligence software, specifically Klique, [employer] and or Armetheon. Substitutions may have occurred due to the inherent limitations of voice recognition and artificial intelligence software. ATTESTATION: Documentation services were performed after patient or guardian consented to allow [employer] to record this visit. YENI tuberculosis specialist and provider reviewed before signing. YENI: Dario Cool. Follow-up N (more content not included)... Normal [facility] Comment on above: Result Comment: Elec tronically [...] Care Team Attending Physician - Cortez Degroot MD. Primary Care Physician - Cortez Degroot MD This Is Your Medications List oxybutynin (oxybutynin 5 mg Tab) tamsulosin (tamsulosin 0.4 mg Cap) warfarin Discharge Vitals Heart Rate (Peripheral) 83 Blood Pressure 128/82 Height 180 cm Height 71 in Weight 153.6 kg Weight 337.92 lb BMI 47.41 What to do next Scheduled Follow-Up Appointments Saturday 10:00 AM EST With: Where: [facility] Invalid Interpretation Code [address] [place] [address]- \.br\ Saturday 3:00 PM EST \.br\ With: Cortez Degroot MD\.br\ Where: [facility] Lab Reportson 11-28-2023 Lab Reports [id number]#1 .00TIFF Normal [facility] Patient Educationon 11-28-19 Patient Education Nutrition BMI [...] numbers. This can be done either in [place] ([place] or metric measurements. Note that charts and online BMI calculators are available to help you find your BMI quickly and easily without having to do these calculations yourself. To calculate your BMI in [place] ([place] measurements: 1. Measure your weight in [...] for Disease Control and Prevention: www.cdc.gov ? [place] Heart Association: www.heart.org ? National Heart, Lung, and Blood [place]: www.nhlbi.nih.gov Summary ? Body mass index (BMI) is a number that is calculated from a person's weight and height. ? BMI may help estimate how much of a person's weight is composed of fat. BMI can help identify those who may be at higher risk for certain medical problems. ? BMI can be measured using [place] measurements or metric measurements. ? BMI charts are used to identify whether you are underweight, normal weight, overweight, or obese. This information is not intended to replace advice given to you by your health care provider. Make sure you discuss any questions you have with your health care provider. Document Revised: 08/03/2020 Document Reviewed: 06/10/2020 Coub Patient Education ? 2022 AnyCloud. [facility] Physician Referralon 024 Physician Referral [id number] #1.00TIFF [facility] ECG 12-Leadon 11-22-2023 ECG 12-Lead [id number]#1 .00TIFF [facility] ECG 12-Lead [id number]#1 .00TIFF [facility] Lab Reportson 11-22-2023 Lab Reports [id number]#1 .00TIFF [facility] Lab Reports [id number]#1 .00TIFF [facility] Lab Reports [id number]#1 .00TIFF [facility] Ambulatory Visit Summaryon 1 01-06-2023 Ambulatory [...] PM EST With: Cortez Degroot MD Where: [facility] [place] Invalid Interpretation Code [address] [place] [address] [place] [address]- \.br\ Saturday 2:15 PM EST \.br\ With: Shahab PATTON MD\.br\ Where: [facility] Consultation Noteon 10-23-20 Consultation Note [id number]# 1.00TIFF [facility] Consent for Procedure/Surger yon 10-22-2023 Consent for Procedure/Surgery [id number]#1 .00TIFF [facility] Ambulatory Visit Summaryon 1 12-08-2022 Ambulatory [...] Shahab PATTON MD Where: [facility] Patient Educationon 10-08-20 23 Patient Education Urology Transurethral Resection of [...] including vitamins, herbs, eye drops, creams, and emce-bvf-sfvvmnz medicines. ? Any problems you or family [...] tells you to take them. ? Taking toso-rvi-ciweafd medicines, vitamins, herbs, and supplements. Surgery safety [...] health care (more content not included)... Normal [facility] Urology Office/Clinic Noteon 10-08-2023 Urology Office/Clinic Note [...] Retention of urine, unspecified) Pt presented to [facility] ER 07/07/23 for retention. Pt was [...] E&M of Est. Patient Moderate 30-39 Min 66581 3. 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 Patient Moderate 30-39 Min 60101 4. 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 Patient Moderate 30-39 Min 50644 Orders: oxybutynin, See Instructions, PRN for urinary discomfort, 1 tab po q 6 hrs PRN bladder spasms/leaking around hinton, up to TID, # 30 tab(s), Refills(s) 3, Pharmacy: [facility]/pharmacy #[id number], 180, cm, 10/08/23 12:12:00 EST, Height/Length Dosing, 123, kg, 11/14/23 12:12:0... Follow-up With When Contact Information JENN GUERIN, Shahab Carrasquillo, URL [address] [place] [id number]- Additional Instructions: Schedule TURP Patient Education Transurethral [...] Former s (more content not included)... Normal [facility] Comment on above: Result Comment: Elec tronically [...] including vitamins, herbs, eye drops, creams, and page-grd-pbgqtfx medicines. ? Any problems you or family [...] tells you to take them. ? Taking smnj-nho-szmytza medicines, vitamins, herbs, and supplements. Surgery safety [...] health care (more content not included)... Normal [facility] Consent for Procedure/Surger yon 09-03-2023 Consent for Procedure/Surgery [id number]#1 .00TIFF Normal [facility] Consent for Treatmenton 08-25 Consent for Treatment [id number]#1 .00TIFF Normal [facility] IntraOperative Documentson 1 IntraOperative Documents [id number]#1 .00TIFF Normal [facility] IntraOperative Documents [id number]#1 .00TIFF Normal [facility] Main OR Intraoperative Recor don 09-03-2023 Main OR Intraoperative Record IntraOp Document Type FTURO Summary Primary Physician: Shahab PATTON MD Finalized Date/Time: 09/03/23 16:31:34 Pt. Name: EUGENIA GILO.B./Sex: 1950 Male Med Rec #: [id number] Physician: Shahab PATTON MD Financial #: [id number] Pt. Type: O Room/Bed: / Admit/Disch: 09/03/23 [...] Entry 3 Case Attendee Shahab PATTON MD FINISHED METAL REPAIRER, Faiza Figueroa RN, Faiza Cruz Role Performed Surgeon - Primary Scrub - Primary Bay Stocker - Primary Time In 09/03/23 16:12:00 09/03/23 16:12:00 09/03/23 16:12:00 Time Out 09/03/23 16:31:00 09/03/23 16:31:00 09/03/23 16:31:00 Procedure CYSTOSCOPY LOCAL(.) CYSTOSCOPY LOCAL(.) CYSTOSCOPY LOCAL(.) Comments Last Modified By: Faiza Figueroa RN RN, Faiza Buitrago RN 09/03/23 16:31:30 09/03/23 [...] By: Faiza Figueroa RN 09/03/23 16:31 Normal [facility] Main OR Preoperative Recordo n 09-03-2023 Main OR Preoperative Record Holding Area Document Type FTURO Summary Primary Physician: Shahab PATTON MD Finalized Date/Time: 09/03/23 16:08:42 Pt. Name: EUGENIA GIL/Sex: 1950 Male Med Rec #: [id number] Physician: Shahab PATTON MD Financial #: [id number] Pt. Type: O Room/Bed: / Admit/Disch: 09/03/23 [...] pain in left knee Skin Integrity Intact, [place], Warm, & Dry Vitals - EU Blood Pressure 144/84 Pulse 92 bpm Respirations 20 br/min SPO2 95 % RN Reviewed Yes Last Modified By: Faiza Figueroa RN 09/03/23 16:08:41 General Comments: Temp 97.3 Finalized By: Faiza Figueroa RN Document Signatures Signed By: Ruby Flores LPN 09/03/23 16:02 Faiza Figueroa RN 09/03/23 16:08 Normal [facility] Operative Reporton Operative Report Patient: EUGENIA GIL [...] it for now. We replaced an 18 [place] catheter. He will get that changed in a month. He will call us if he is interested in going forward with a TURP.. [facility] Comment on above: Result Comment: Elec tronically Signed By: JENN GUERIN, Shahab Carrasquillo\.br\Date and Time Signed: 09/03/23 16:35 EDT Patient Educationon 09-03-20 Patient Education [facility] Ambulatory Visit Summaryon 0 08-12-2023 Ambulatory Visit Summary EUGENIA GIL :1950 Visit Date:08/12/2023 Ambulatory Visit Instructions Your Care Team Attending Physician - JENN GUERIN, Shahab Carrasquillo Primary Care Physician - Zane GUERIN, Cortez Erwin This Is Your Medications List ciprofloxacin (Cipro 500 mg Tab) tamsulosin (tamsulosin 0.4 mg Cap) warfarin What to do next Scheduled Follow-Up Appointments Saturday 8:15 AM EDT Where: [facility] Saturday 3:00 PM EDT Where: [facility] Saturday 3:45 PM EDT Where: [facility] Saturday 1:00 PM EST Where: [facility] Lab Reportson 08-11-2023 Lab Reports [id number] .00CD:127 [facility] Formson 08-06-2023 Forms [id number]#1. 00CD:127 [facility] Lab Reportson 08-06-2023 Lab Reports [id number]#1 .00CD:127 [facility] Ambulatory Visit Summaryon 0 08-05-2023 Ambulatory Visit Summary EUGENIA GIL :1950 Visit Date:08/05/2023 Ambulatory Visit Instructions Your Diagnosis Urinary retention Prostate cancer screening Anticoagulated Tests Performed Urnls Dip Stick Auto w/o Microscopy POC 93929 Your Care Team Attending Physician - Shahab [...] Urology [address], [place] [address] [phone] Medications What How Much When Instructions Unchanged tamsulosin (tamsulosin 0.4 mg Cap) 1 Capsules By Mouth Every day Unchanged warfarin By Mouth Every day Contact prescribing physician if questions or concerns Test Results Urnls Dip Stick Auto w/o Microscopy POC 93196 (08/05/2023) Bilirubin Urine Dipstick - Negative Blood Urine Dipstick - 2+ Moderate Glucose Urine Dipstick - Negative Ketones Urine Dipstick - Negative Leukocytes Urine Dipstick - 1+ Small Nitrite Urine Dipstick - Negative Protein Urine Dipstick - 3+ (300 mg/dl) Specific [place] Urine Dipstick - 1.025 Urine Appearance Urine Dipstick - Clear Urine Color Urine Dipstick - Yellow Urobilinogen Urine Dipstick - Normal 0.2-1 EU/dl pH Urine Dipstick - 7 Allergies No Known Allergies Problems Ongoing - Any problem that you are currently receiving treatment for. Anticoagulated Prostate cancer screening Urinary retention Normal [facility] ED Note-Physicianon 08-05-20 ED Note-Physician [id number] .00CD:127 Normal [facility] Patient Educationon 08-05-20 Patient Education Urology Urodynamic [...] including vitamins, herbs, eye drops, creams, and qrkf-hns-aatavrc medicines. ? Whether you are or may [...] results be (more content not included)... Normal [facility] Urology Office/Clinic Noteon 08-05-2023 Urology Office/Clinic Note Chief Complaint [facility] F/U HPI Staff Speech Professor F/U from [facility] 07/07/23 for urinary retention Never been [...] emptying for many months. Pt prestent to [facility] ER 07/07/23 for retention. Pt was [...] Will order one now. 3. Anticoagulated (Z79.01: penitentiary (current) use of anticoagulants) On Warfarin. 4. Former smoker (Z87.891: Personal history of nicotine dependence) Increased risk for urothelial cancer. Follow-up With When Contact Information JENN GUERIN, Shahab Carrasquillo, URL [facility] [address], [place] [address] [phone] Additional Instructions: sched Cysto/UDS PSA Patient Education Urodynamic Testing Cystoscopy Acute Urinary Retention, Male I, Elizabeth Greenberg, personally scribed for Dr. Patton on 08/05/2023 13:15:27. . Documentation recorded by the ashwiniibElizabeth walton, accurately reflects the services(s) I performed and decisions made by me. Authenticated by Dr. Patton on 08/05/2023 13:19:12. Problem List/Past Medical History Ongoing Anticoagulated Former smoker Prostate cancer screening Urinary retention Historical No qualifying data Medications tamsulosin 0.4 mg Cap, 0.4 mg= 1 cap(s), Oral, Daily warfarin, Oral, Daily Allergies No Known Allergies Immunizations Vaccine Date Status SARS-CoV-2 (COVID-19) mRNAMUL.ORD![id number] 12/13/2022 Recorded SARS-CoV-2 (COVID-19) mRNA BNT-162b2 vax 10/30/2021 Recorded SARS-CoV-2 (COVID-19) mRNA BNT-162b2 vax 02/14/2021 Recorded SARS-CoV-2 (COVID-19) mRNA BNT-162b2 vax 01/23/2021 Recorded Lab Results Ambulatory Point of Care Results Bilirubin Urine Dipstick: Negative (08/05/23 12:18:00) Blood Urine Dipstick: 2+ Moderate (08/05/23 12:18:00) Glucose Urine Dipstick: Negative (08/05/23 12:18:00) Ketones Urine Dipstick: Negative (08/05/23 12:18:00) L (more content not included)... Normal [facility] Comment on above: Result Comment: Elec tronically Signed By: Andra Jamil\Date and Time Signed: 08/05/23 13:29 EDT Vital Signs Date Time Vital Sign Value Performing Clinician Faci lity 11-02-2024 13:36-0500 Blood Pressure Location Shahab PATTON [facility] 11-02-2024 13:36-0500 Body temperature 98.6 [degF] Shahab PATTON [facility] 11-02-2024 13:36-0500 Diastolic blood pressure 86 mm[Hg] Shahab PATTON [facility] 11-02-2024 13:36-0500 Heart rate 82 /min Shahab PATTON [facility] 11-02-2024 13:36-0500 Respiratory rate 16 /min Shahab PATTON [facility] 11-02-2024 13:36-0500 Systolic blood pressure 135 mm[Hg] Shahab PATTON [facility] 08-31-2024 12:40-0400 Blood Pressure Location Shahabmaty PATTON [facility] 08-31-2024 12:40-0400 Diastolic blood pressure 72 mm[Hg] Shahab PATTON [facility] 08-31-2024 12:40-0400 Heart rate 84 /min Shahab PATTON [facility] 08-31-2024 12:40-0400 Systolic blood pressure 134 mm[Hg] Shahab PATTON [facility] 07-31-2024 10:41-0400 Body temperature 98.6 [degF] Shahab PATTON [facility] 07-31-2024 10:41-0400 Diastolic blood pressure 85 mm[Hg] Shahab PATTON [facility] 07-31-2024 10:41-0400 Heart rate 77 /min Shahab PATTON [facility] 07-31-2024 10:41-0400 Respiratory rate 16 /min Shahab PATTON [facility] 07-31-2024 10:41-0400 Systolic blood pressure 136 mm[Hg] Shahab PATTON [facility] 05-20-2024 10:07-0400 Blood Pressure Location Paul Barbosa [facility] 05-20-2024 10:07-0400 Diastolic blood pressure 79 mm[Hg] Paul Barbosa [facility] 05-20-2024 10:07-0400 Heart rate 76 /min Paul Barbosa [facility] 05-20-2024 10:07-0400 Respiratory rate 16 /min Paul Barbosa [facility] 05-20-2024 10:07-0400 SaO2% (BldA) [Mass fraction] 89 % Paul Barbosa [facility] 05-20-2024 10:07-0400 Systolic blood pressure 132 mm[Hg] Paul Barbosa [facility] 04-14-2024 12:31-0400 Blood Pressure Location Rae Orzech [facility] 04-14-2024 12:31-0400 Body temperature 98.06 [degF] Rae Orzech [facility] 04-14-2024 12:31-0400 Diastolic blood pressure 77 mm[Hg] Rae Orzech [facility] 04-14-2024 12:31-0400 Heart rate 97 /min Rae Orzech [facility] 04-14-2024 12:31-0400 Respiratory rate 16 /min Rae Orzech [facility] 04-14-2024 12:31-0400 Systolic blood pressure 125 mm[Hg] Rae Orzech [facility] 04-07-2024 14:03-0400 Blood Pressure Location Paul Barbosa [facility] 04-07-2024 14:03-0400 Diastolic blood pressure 84 mm[Hg] Paul Barbosa [facility] 04-07-2024 14:03-0400 Heart rate 83 /min Paul Barbosa [facility] 04-07-2024 14:03-0400 Systolic blood pressure 130 mm[Hg] Paul Barbosa [facility] 12-13-2023 10:31-0500 Blood Pressure Location Aditya Nino [facility] 12-13-2023 10:31-0500 Diastolic blood pressure 80 mm[Hg] Aditya Mica [facility] 12-13-2023 10:31-0500 Heart rate 86 /min Aditya Mica [facility] 12-13-2023 10:31-0500 SaO2% (BldA) [Mass fraction] 91 % Aditya Nino [facility] 12-13-2023 10:31-0500 Systolic blood pressure 120 mm[Hg] Aditya Mica [facility] 08-12-2023 13:50-0400 Body height 180.34 cm Beth Joseph Other [facility] Other 08-12-2023 13:50-0400 Body mass index (BMI) [Ratio] 45.07 kg/m2 Beth Joseph Other [facility] Other 08-12-2023 13:50-0400 Body temperature 96.6 [degF] Beth Joseph Other [facility] Other 08-12-2023 13:50-0400 Body weight 146.6 kg Beth Joseph Other [facility] Other 08-12-2023 13:50-0400 Diastolic blood pressure 82 mm[Hg] Beth Calvillomond Other [facility] Other 08-12-2023 13:50-0400 Respiratory rate 18 /min Beth Calvillomond Other [facility] Other 08-12-2023 13:50-0400 SaO2% (BldA) [Mass fraction] 97 % Beth Calvillomond Other [facility] Other 08-12-2023 13:50-0400 Systolic blood pressure 142 mm[Hg] Beth Calvillomond Other [facility] Other 08-05-2023 12:21-0400 Blood Pressure Location Shahab PATTON [facility] 08-05-2023 12:21-0400 Body temperature 97.52 [degF] Shahab PATTON [facility] 08-05-2023 12:21-0400 Diastolic blood pressure 88 mm[Hg] Shahab PATTON [facility] 08-05-2023 12:21-0400 Heart rate 88 /min Shahab PATTON [facility] 08-05-2023 12:21-0400 Systolic blood pressure 132 mm[Hg] Shahab PATTON [facility] Encounters Encounter Date Encounter Type Care Provider Facility Start: 05-10-2025 ambulatory Cortez Degroot Facility :[facility] Start: 12-28-2024 ambulatory Shahab Luis ty:[facility] Start: 12-07-2024 ambulatory Cortez Degroot Facility :[facility] Start: 11-02-2024 End: 11-02-2024 ambulatory Shahab PATTON Facility:[facility] Start: 11-02-2024 End: 11-02-2024 Patient encounter procedure Shahabmaty PATTON [facility] Start: 09-07-2024 End: 09-07-2024 ambulatory Cortez Degroot Facility:[facility] Start: 08-31-2024 End: 08-31-2024 ambulatory Shahab PATTON Facility:[facility] Start: 08-31-2024 End: 08-31-2024 Patient encounter procedure Shahab Carrasquillo PATTON [facility] Start: 08-24-2024 End: 08-24-2024 ambulatory Cortez Degroot Facility:[facility] Start: 08-21-2024 End: 09-23-2024 ambulatory Cortez Degroot Facility:CD:[id number] Start: 08-18-2024 End: 08-18-2024 ambulatory Shahab R PATTON Facility:[facility] Start: 08-18-2024 End: 08-18-2024 Patient encounter procedure Shahab PATTON [facility] Start: 07-31-2024 End: 07-31-2024 ambulatory Shahabmaty PATTON Facility:[facility] Start: 07-31-2024 End: 07-31-2024 Patient encounter procedure Shahab PATTON [facility] Start: 07-13-2024 End: 07-13-2024 ambulatory Cortez Degroot Facility:[facility] Start: 07-06-2024 End: 08-05-2024 ambulatory Cortez Degroot Facility:CD:[id number] Start: 07-06-2024 End: 07-06-2024 ambulatory Shahab PATTON Facility:[facility] Start: 07-06-2024 End: 07-06-2024 Patient encounter procedure Shahab PATTON [facility] Start: 07-02-2024 End: 07-02-2024 ambulatory Shahab Patton [facility] Work Phone: Start: 07-02-2024 End: 07-02-2024 Departed Referred MD Shahab Patton Work Phone: [facility] Start: 07-02-2024 End: 07-02-2024 ambulatory Shahab PATTON Facility:CD:[id number] Start: 06-09-2024 End: 06-09-2024 ambulatory Rae X Orzech Facility:[facility] Start: 06-09-2024 End: 06-09-2024 Patient encounter procedure Rae X Orzech [facility] Start: 05-20-2024 End: 05-20-2024 ambulatory XXXX NONE Facility:[facility] Start: 05-20-2024 End: 05-20-2024 Patient encounter procedure Paul Barbosa [facility] Start: 05-20-2024 End: 05-20-2024 Preprocedural examination done Paul Barbosa [facility] Start: 05-12-2024 End: 05-12-2024 ambulatory ESPERANZA LIVE Facility:[facility] Start: 05-12-2024 End: 05-12-2024 Patient encounter procedure ESPERANZA LIVE [facility] Start: 05-11-2024 End: 05-11-2024 ambulatory Cortez Degroot Facility:[facility] Start: 04-17-2024 End: 04-17-2024 Admission to same day surgery center Aditya Nino [facility] Start: 04-17-2024 End: 04-17-2024 ambulatory Aditya Nino Facility:[facility] Start: 04-14-2024 End: 04-14-2024 ambulatory Rae X Orzech Facility:[facility] Start: 04-14-2024 End: 04-14-2024 Patient encounter procedure Rae X Orzech [facility] Start: 04-07-2024 End: 04-07-2024 ambulatory Paul Barboas Facility:[facility] Start: 04-07-2024 End: 04-07-2024 Patient encounter procedure Paul Barbosa [facility] Start: 04-07-2024 End: 04-07-2024 ambulatory XXXX NONE Facility:[facility] Start: 04-07-2024 End: 04-07-2024 Patient encounter procedure Paul Barbosa [facility] Start: 03-10-2024 End: 03-10-2024 ambulatory ESPERANZA LIVE Facility:[facility] Start: 03-10-2024 End: 03-10-2024 Patient encounter procedure ESPERANZA LIVE [facility] Start: 03-09-2024 End: 03-09-2024 ambulatory Cortez Degroot Facility:[facility] Start: 02-11-2024 End: 02-11-2024 ambulatory Shahab PATTON Facility:[facility] Start: 02-11-2024 End: 02-11-2024 Patient encounter procedure Shahab PATTON [facility] Start: 02-06-2024 End: 02-06-2024 ambulatory Aditya Nino Facility:[facility] Start: 02-06-2024 End: 02-06-2024 Patient encounter procedure Aditya Nino [facility] Start: 01-06-2024 End: 01-06-2024 ambulatory Shahab PATTON Facility:[facility] Start: 01-06-2024 End: 01-06-2024 Patient encounter procedure Shahab PATTON [facility] Start: 12-30-2023 End: 12-30-2023 ambulatory Cortez Degroot Facility:[facility] Start: 12-26-2023 ambulatory Shahab PATTON Facility :[facility] Start: 12-19-2023 End: 03-19-2024 ambulatory Cortez Degroot Facility:[facility] Start: 12-19-2023 End: 03-19-2024 Recurring Cortez Degroot [facility] Start: 12-13-2023 End: 12-13-2023 ambulatory Cortez Degroot Facility:[facility] Start: 12-13-2023 End: 12-13-2023 Patient encounter procedure Aditya Nino [facility] Start: 12-09-2023 End: 12-09-2023 ambulatory Shahab PATTON Facility:[facility] Start: 12-09-2023 End: 12-09-2023 Patient encounter procedure Shahab PATTON [facility] Start: 12-05-2023 End: 12-05-2023 ambulatory Shahab PATTON Facility: [facility] Start: 12-05-2023 End: 12-05-2023 Off-Site Shahab PATTON [facility] Start: 11-28-2023 End: 11-28-2023 ambulatory Cortez Rip Degroot Facility:[facility] Start: 11-05-2023 End: 11-05-2023 ambulatory Shahab PATTON Facility:[facility] Start: 10-08-2023 End: 10-08-2023 ambulatory ESPERANZA LIVE Facility:[facility] Start: 10-08-2023 End: 10-08-2023 Patient encounter procedure ESPERANZA LIVE [facility] Start: 09-03-2023 End: 09-03-2023 ambulatory Shahab PATTON Facility:[facility] Start: 08-12-2023 Office outpatient ne w 10 minutes Beth Joseph [facility] [place] Start: 08-12-2023 End: 08-12-2023 ambulatory Shahab Foreign [facility] Other Start: 08-12-2023 End: 08-12-2023 Patient encounter procedure Shahab R PATTON [facility] Start: 08-05-2023 End: 08-05-2023 ambulatory Shahab Foreign PATTON Facility:[facility] Start: 08-05-2023 End: 08-05-2023 Patient encounter procedure Shahab PATTON [facility] Start: 07-11-2023 ambulatory Shahab JENN Facility :[facility] Start: 03-25-2023 End: 04-24-[address] NONE LISTED REQUEST Facility: Start: 02-25-2023 End: 03-22-[address] NONE [...] FAWWAD Facility:[facility] Start: 05-25-2022 End: 06-22-2022 ambulatory JALLOH H FAWWAD Facility:[facility] Procedures Date Procedure Procedure Detail Performing Clinician Start: 07-02-2024 Transurethral prostatectomy Shahab PATTON Start: 04-17-2024 Catheterization of l eft heart ESPERANZA LIVE Tonsillectomy Paul Barbosa Plan of Treatment Date Care Activity Detail Author Start: 07-02-2024 [facility] Immunizations Immunization Date Immunization Notes Care Provider [facility] 12-13-2022 SARS-CoV-2 (COVID-19 ) mRNAMUL.[id number] Shahab PATTON [facility] 10-30-2021 SARS-CoV-2 (COVID-19 ) mRNA BNT-162b2 vax Shahab PATTON [facility] 02-14-2021 SARS-CoV-2 (COVID-19 ) mRNA BNT-162b2 vax Shahab PATTON [facility] 01-23-2021 SARS-CoV-2 (COVID-19 ) mRNA BNT-162b2 haile PATTON [facility] Payers Date Payer Category Payer Self-pay 2022 Unknown [id number] 1959 Unknown [id number] 1950 Unknown [id number] 2.16.84 0.1.642199.3.579.2.593 1952 Unknown [id number] 2.16.84 0.1.822073.3.579.2.593 1952 Unknown [id number] 2.16.84 0.1.036970.3.579.2.593 1952 Unknown [id number] 2.16.84 0.1.538689.3.579.2.593 1952 Unknown [id number] 2.16.84 0.1.615712.3.579.2.593 1952 Unknown [id number] 2.16.84 0.1.159436.3.579.2.593 1952 Unknown [id number] 2.16.84 0.1.035674.3.579.2.593 1952 Unknown [id number] 2.16.84 0.1.774598.3.579.2.593 1952 Unknown [id number] 2.16.84 0.1.944556.3.579.2.593 1952 Unknown [id number] 2.16.84 0.1.834662.3.579.2.593 1952 Unknown [id number] 2.16.84 0.1.341552.3.579.2.593 1952 Unknown [id number] 2.16.8 40.1.632581.3.579.2.727 1952 Unknown [id number] 2.16.8 40.1.806431.3.579.2.727 1952 Unknown [id number] 2.16.8 40.1.097811.3.579.2.727 1952 Unknown [id number] 2.16.8 40.1.294006.3.579.2.727 1952 Unknown [id number] 2.16.8 40.1.238904.3.579.2.727 1952 Unknown [id number] 2.16.8 40.1.075674.3.579.2.727 1952 Unknown [id number] 2.16.8 40.1.097658.3.579.2.727 1952 Unknown [id number] 2.16.8 40.1.408208.3.579.2.727 1952 Unknown [id number] 2.16.8 40.1.009277.3.579.2.727 1952 Unknown [id number] 2.16.8 40.1.314548.3.579.2.727 1952 Unknown [id number] 2.16.8 40.1.048431.3.579.2.727 1952 Unknown [id number] 2.16.8 40.1.453585.3.579.2.727 1952 Unknown [id number] 2.16.8 40.1.191486.3.579.2.727 1952 Unknown [id number] 2.16.8 40.1.965088.3.579.2.727 1952 Unknown [id number] 2.16.8 40.1.472829.3.579.2.727 1952 Unknown [id number] 2.16.8 40.1.625598.3.579.2.72 1952 Unknown [id number] 2.16.8 40.1.734455.3.579.2.727 1952 Unknown [id number] 2.16.8 40.1.416704.3.579.2.727 1952 Unknown [id number] 2.16.8 40.1.031975.3.579.2.727 1952 Unknown [id number] 2.16.8 40.1.053922.3.579.2.727 1952 Unknown [id number] 2.16.8 40.1.966526.3.579.2.72 1952 Unknown [id number] 2.16.8 40.1.967236.3.579.2.72 1952 Unknown [id number] 2.16.8 40.1.224807.3.579.2.72 1952 Unknown [id number] 2.16.8 40.1.740899.3.579.2.727 1952 Unknown [id number] 2.16.8 40.1.622980.3.579.2.727 1952 Unknown [id number] 2.16.8 40.1.832017.3.579.2.727 1952 Unknown [id number] 2.16.8 40.1.925893.3.579.2.727 1952 Unknown [id number] 2.16.8 40.1.991472.3.579.2.727 1952 Unknown [id number] 2.16.8 40.1.743069.3.579.2.727 1952 Unknown [id number] 2.16.8 40.1.463168.3.579.2.727 1952 Unknown [id number] 2.16.8 40.1.647033.3.579.2.727 1952 Unknown [id number] 2.16.8 40.1.880250.3.579.2.727 1952 Unknown [id number] 2.16.8 40.1.122395.3.579.2.727 1952 Unknown [id number] 2.16.8 40.1.054801.3.579.2.727 1952 Unknown [id number] 2.16.8 40.1.808632.3.579.2.727 1952 Unknown [id number] 2.16.8 40.1.996679.3.579.2.727 1952 Unknown [id number] 2.16.8 40.1.038736.3.579.2.727 1952 Unknown [id number] 2.16.8 40.1.602323.3.579.2.727 1952 Unknown [id number] 2.16.8 40.1.474193.3.579.2.727 1952 Unknown [id number] 2.16.8 40.1.343539.3.579.2.727 Social History Date Type Detail Facility Tobacco smoking status [facility] Sex Assigned At Male [facility] Start: 10-08-2023 End: 11-02-2024 Tobacco smoking status Ex-smoker (finding) [facility] Comment on above: Patient states he sm oked 1 PPD from 19 y.o. to 69 y.o. Start: 12-13-2023 Tobacco smoking status Former smokeless tobacco user, quit more than 30 days ago [facility] Comment on above: Patient states he sm oked 1 PPD from 19 y.o. to 69 y.o. Start: 08-12-2023 Tobacco smoking stat us NHIS Smoker (finding) [facility] Start: 1950 Sex Assigned At Male [facility] Functional Status Date Assessment Result Facility 11-02-2024 Functional Status N/A [facility] 08-31-2024 Functional Status N/A [facility] 07-31-2024 Functional Status N/A [facility] 05-20-2024 Functional Status N/A [facility] 04-17-2024 Functional Status N/A [facility] 04-14-2024 Functional Status N/A [facility] 04-07-2024 Functional Status No [facility] 12-13-2023 Functional Status No [facility] 10-08-2023 Functional Status N/A [facility] 08-05-2023 Functional Status N/A [facility] Clinical Notes 12-19-2019 to 11-02-2024 Note Date & Type Note Facility 11-02-2024 Hospital Discharge instructions Patient Education 11/02/2024 14:23:54 Clean Intermittent Catheterization, Male Clean Intermittent Catheterization, Male Clean intermittent catheterization (CIC) is a procedure to drain pee (urine) from the bladder by placing a soft tube (catheter) into the bladder though the urethra. The urethra is a tube in the body that carries pee from the bladder out of the body. CIC reduces the risk of infection and other problems that may arise when pee is not completely emptied from the bladder. CIC may be done when: You cannot completely empty your bladder on your own. This may be due to a blockage in the bladder or urethra. Your bladder leaks pee. This may happen when the muscles or nerves near the bladder are not working normally, so the bladder overflows. Your health care provider will show you how to do the procedure. You will also be given the supplies you need to do the procedure. Supplies needed: Germ-free (sterile), water-based lubricant. A container for pee collection. You may also use the toilet to dispose of pee from the catheter. A catheter. Your provider will determine the best size for you. ?Use this catheter size: Clean gloves. Soap and water. Clean washcloth and towel. How to perform this procedure: Most people need CIC at least 4 times per day to completely empty the bladder. Your provider will tell you how often you should do CIC. Number of times per day to perform CIC: To perform CIC, follow these steps: 1.Wash your hands with soap and water for 20 seconds. If soap and water are not available, use hand frozen meat cutter. 2.Clean your penis with soap and water. Dry the tip of your penis completely. 3.Prepare the supplies that you will use during the procedure. Open the catheter package and lubricant. 4.Get in a comfortable position. Possible positions include: Sitting on a toilet, a chair, or the edge of a bed. Standing near a toilet. Lying down with your head raised on pillows and your knees pointing to the ceiling. You may wish to place a waterproof mat or pad under you. 5.If you are using a pee collection container, position it between your legs. 6.Pee, if you are able. 7.Put on gloves. 8.Apply lubricant to about 2 inches (5 cm) of the tip of the catheter. 9.Set the catheter down on a clean, dry surface within reach. 10.Gently stretch your penis out from your body. Pull back any skin that covers the end of your penis (foreskin). Clean the end of your penis with sterile swabs as told by your provider. 11.Hold your penis upward at a 45 60 degree angle. This helps to straighten the urethra. 12.Slowly insert the lubricated catheter straight into your urethra until pee flows freely. This is usually about 6 8 inches (15 20 cm). 13.When pee starts to flow freely, insert the catheter 1 inch (3 cm) more. Allow pee to drain into the toilet or the pee collection container. 14.When pee stops flowing, slowly remove the catheter. 15.Note the color, amount, and odor of the pee. 16.Measure your pee and note the amount, if told by your provider. 17.Discard the pee in the toilet. 18.Clean your penis using soap and water. 19.Move the foreskin back in place, if applicable. 20.If you are using a single-use catheter, discard the catheter and supplies. 21.Wash your hands with soap and water. 22.If you are using a reusable catheter, follow package instructions about how to clean the catheter after each use. How often should I do this procedure? Do CIC to empty your bladder every 4 6 hours or as often as told by your provider. If you have symptoms of too much pee in your bladder (overdistension) and you are not able to pee, perform CIC. Symptoms of overdistension may include: ?Restlessness. ?Sweating or chills. ?Headache. ?Flushed or pale skin. ?Bloated lower abdomen. What are the risks? The provider will talk with you about the risks. These may include: Infection. Injury to the urethra. Irritation of the urethra. Follow these instructions at home General instructions Drink enough fluid to keep your pee pale yellow. Throw away a catheter when it becomes dry, brittle, or cloudy. This usually happens after you use the catheter for 1 week. Avoid caffeine. Caffeine may make you need to pee more frequently and more urgently. When traveling, bring extra supplies with you in case of delays. Keep supplies with you in a place that you can access easily. If traveling by plane: ?Make sure that the lubricant in your carry-on bag is less than 3.4 ounces (100 mL). ?Use a single-use catheter. It may be difficult to clean a reusable catheter in a small bathroom. Take alwc-ote-tfvcdse and prescription medicines only as told by your provider. Contact a health care provider if: You have difficulty doing CIC. You have pee leaking around the catheter during CIC. You have: ?Dark or cloudy pee. ?Blood in your pee or in your catheter. ?A change in the smell of your pee or discharge. ?A burning feeling while you pee. You vomit or feel like you may vomit. You have pain in your abdomen, your back, or your sides below your ribs. You have swelling or redness around the opening of your urethra. You develop a rash or sores on your skin. Get help right away if: You have a fever. You have symptoms that do not go away after 3 days. You have symptoms that suddenly get worse. You have severe pain. You start passing a little pee, or a little pee drains from your bladder. This information is not intended to replace advice given to you by your health care provider. Make sure you discuss any questions you have with your health care provider. Document Revised: 07/08/2023 Document Reviewed: 07/08/2023 Coub Patient Education 2023 [employer]. Follow Up Care 08/31/2024 13:49:39 With:JENN GUERIN, Shahab Carrasquillo, URL Address: [facility] [address] , [place] [address] [phone] When: Unknown Comments:2 mos w/ voiding diary [facility] 11-02-2024 Note Patient Education Urology Clean Intermittent Catheterization, Male Clean intermittent catheterization (CIC) is a procedure to drain pee (urine) from the bladder by placing a soft tube (catheter) into the bladder though the urethra. The urethra is a tube in the body that carries pee from the bladder out of the body. CIC reduces the risk of infection and other problems that may arise when pee is not completely emptied from the bladder. CIC may be done when: ??? You cannot completely empty your bladder on your own. This may be due to a blockage in the bladder or urethra. ??? Your bladder leaks pee. This may happen when the muscles or nerves near the bladder are not working normally, so the bladder overflows. Your health care provider will show you how to do the procedure. You will also be given the supplies you need to do the procedure. Supplies needed: ??? Germ-free (sterile), water-based lubricant. ??? A container for pee collection. You may also use the toilet to dispose of pee from the catheter. ??? A catheter. Your provider will determine the best size for you. ? Use this catheter size: ??? Clean gloves. ??? Soap and water. ??? Clean washcloth and towel. How to perform this procedure: Most people need CIC at least 4 times per day to completely empty the bladder. Your provider will tell you how often you should do CIC. ??? Number of times per day to perform CIC: To perform CIC, follow these steps: 1. Wash your hands with soap and water for 20 seconds. If soap and water are not available, use hand frozen meat cutter. 2. Clean your penis with soap and water. Dry the tip of your penis completely. 3. Prepare the supplies that you will use during the procedure. Open the catheter package and lubricant. 4. Get in a comfortable position. Possible positions include: ??? Sitting on a toilet, a chair, or the edge of a bed. ??? Standing near a toilet. ??? Lying down with your head raised on pillows and your knees pointing to the ceiling. You may wish to place a waterproof mat or pad under you. 5. If you are using a pee collection container, position it between your legs. 6. Pee, if you are able. 7. Put on gloves. 8. Apply lubricant to about 2 inches (5 cm) of the tip of the catheter. 9. Set the catheter down on a clean, dry surface within reach. 10. Gently stretch your penis out from your body. Pull back any skin that covers the end of your penis (foreskin). Clean the end of your penis with sterile swabs as told by your provider. 11. Hold your penis upward at a 45?60 degree angle. This helps to straighten the urethra. 12. Slowly insert the lubricated catheter straight into your urethra until pee flows freely. This is usually about 6?8 inches (15?20 cm). 13. When pee starts to flow freely, insert the catheter 1 inch (3 cm) more. Allow pee to drain into the toilet or the pee collection container. 14. When pee stops flowing, slowly remove the catheter. 15. Note the color, amount, and odor of the pee. 16. Measure your pee and note the amount, if told by your provider. 17. Discard the pee in the toilet. 18. Clean your penis using soap and water. 19. Move the foreskin back in place, if applicable. 20. If you are using a single-use catheter, discard the catheter and supplies. 21. Wash your hands with soap and water. 22. If you are using a reusable catheter, follow package instructions about how to clean the catheter after each use. How often should I do this procedure? Do CIC to empty your bladder every 4?6 hours or as often as told by your provider. ??? If you have symptoms of too much pee in your bladder (overdistension) and you are not able to pee, perform CIC. Symptoms of overdistension may include: ? Restlessness. ? Sweating or chills. ? Headache. ? Flushed or pale skin. ? Bloated lower abdomen. What are the risks? The provider will talk with you about the risks. These may include: ??? Infection. ??? Injury to the urethra. ??? Irritation of the urethra. Follow these instructions at home General instructions ??? Drink enough fluid to keep your pee pale yellow. ??? Throw away a catheter when it becomes dry, brittle, or cloudy. This usually happens after you use the catheter for 1 week. ??? Avoid caffeine. Caffeine may make you need to pee more frequently and more urgently. ??? When traveling, bring extra supplies with you in case of delays. Keep supplies with you in a place that you can access easily. If traveling by plane: ? Make sure that the lubricant in your carry-on bag is less than 3.4 ounces (100 mL). ? Use a single-use catheter. It may be difficult to clean a reusable catheter in a small bathroom. ??? Take ysfe-xua-tvfvjkd and prescription medicines only as told by your provider. Contact a health care provider if: ??? You have difficulty doing CIC. (more content not included)... [facility] 08-31-2024 Hospital Discharge instructions Patient Education 08/31/2024 13:30:48 Clean Intermittent Catheterization, Male Clean Intermittent Catheterization, Male Clean intermittent catheterization (CIC) is a procedure to drain pee (urine) from the bladder by placing a soft tube (catheter) into the bladder though the urethra. The urethra is a tube in the body that carries pee from the bladder out of the body. CIC reduces the risk of infection and other problems that may arise when pee is not completely emptied from the bladder. CIC may be done when: You cannot completely empty your bladder on your own. This may be due to a blockage in the bladder or urethra. Your bladder leaks pee. This may happen when the muscles or nerves near the bladder are not working normally, so the bladder overflows. Your health care provider will show you how to do the procedure. You will also be given the supplies you need to do the procedure. Supplies needed: Germ-free (sterile), water-based lubricant. A container for pee collection. You may also use the toilet to dispose of pee from the catheter. A catheter. Your provider will determine the best size for you. ?Use this catheter size: Clean gloves. Soap and water. Clean washcloth and towel. How to perform this procedure: Most people need CIC at least 4 times per day to completely empty the bladder. Your provider will tell you how often you should do CIC. Number of times per day to perform CIC: To perform CIC, follow these steps: 1.Wash your hands with soap and water for 20 seconds. If soap and water are not available, use hand frozen meat cutter. 2.Clean your penis with soap and water. Dry the tip of your penis completely. 3.Prepare the supplies that you will use during the procedure. Open the catheter package and lubricant. 4.Get in a comfortable position. Possible positions include: Sitting on a toilet, a chair, or the edge of a bed. Standing near a toilet. Lying down with your head raised on pillows and your knees pointing to the ceiling. You may wish to place a waterproof mat or pad under you. 5.If you are using a pee collection container, position it between your legs. 6.Pee, if you are able. 7.Put on gloves. 8.Apply lubricant to about 2 inches (5 cm) of the tip of the catheter. 9.Set the catheter down on a clean, dry surface within reach. 10.Gently stretch your penis out from your body. Pull back any skin that covers the end of your penis (foreskin). Clean the end of your penis with sterile swabs as told by your provider. 11.Hold your penis upward at a 45 60 degree angle. This helps to straighten the urethra. 12.Slowly insert the lubricated catheter straight into your urethra until pee flows freely. This is usually about 6 8 inches (15 20 cm). 13.When pee starts to flow freely, insert the catheter 1 inch (3 cm) more. Allow pee to drain into the toilet or the pee collection container. 14.When pee stops flowing, slowly remove the catheter. 15.Note the color, amount, and odor of the pee. 16.Measure your pee and note the amount, if told by your provider. 17.Discard the pee in the toilet. 18.Clean your penis using soap and water. 19.Move the foreskin back in place, if applicable. 20.If you are using a single-use catheter, discard the catheter and supplies. 21.Wash your hands with soap and water. 22.If you are using a reusable catheter, follow package instructions about how to clean the catheter after each use. How often should I do this procedure? Do CIC to empty your bladder every 4 6 hours or as often as told by your provider. If you have symptoms of too much pee in your bladder (overdistension) and you are not able to pee, perform CIC. Symptoms of overdistension may include: ?Restlessness. ?Sweating or chills. ?Headache. ?Flushed or pale skin. ?Bloated lower abdomen. What are the risks? The provider will talk with you about the risks. These may include: Infection. Injury to the urethra. Irritation of the urethra. Follow these instructions at home General instructions Drink enough fluid to keep your pee pale yellow. Throw away a catheter when it becomes dry, brittle, or cloudy. This usually happens after you use the catheter for 1 week. Avoid caffeine. Caffeine may make you need to pee more frequently and more urgently. When traveling, bring extra supplies with you in case of delays. Keep supplies with you in a place that you can access easily. If traveling by plane: ?Make sure that the lubricant in your carry-on bag is less than 3.4 ounces (100 mL). ?Use a single-use catheter. It may be difficult to clean a reusable catheter in a small bathroom. Take yieb-nlp-hqvhqch and prescription medicines only as told by your provider. Contact a health care provider if: You have difficulty doing CIC. You have pee leaking around the catheter during CIC. You have: ?Dark or cloudy pee. ?Blood in your pee or in your catheter. ?A change in the smell of your pee or discharge. ?A burning feeling while you pee. You vomit or feel like you may vomit. You have pain in your abdomen, your back, or your sides below your ribs. You have swelling or redness around the opening of your urethra. You develop a rash or sores on your skin. Get help right away if: You have a fever. You have symptoms that do not go away after 3 days. You have symptoms that suddenly get worse. You have severe pain. You start passing a little pee, or a little pee drains from your bladder. This information is not intended to replace advice given to you by your health care provider. Make sure you discuss any questions you have with your health care provider. Document Revised: 07/08/2023 Document Reviewed: 07/08/2023 Coub Patient Education 2023 [employer]. Follow Up Care 07/31/2024 11:55:10 With:JENN GUERIN, Shahab Carrasquillo, URL Address: [facility] [address] , [place] [address]- [phone] When: Unknown [facility] [place] 08-31-2024 Note Patient Education Urology Clean Intermittent Catheterization, Male Clean intermittent catheterization (CIC) is a procedure to drain pee (urine) from the bladder by placing a soft tube (catheter) into the bladder though the urethra. The urethra is a tube in the body that carries pee from the bladder out of the body. CIC reduces the risk of infection and other problems that may arise when pee is not completely emptied from the bladder. CIC may be done when: ? You cannot completely empty your bladder on your own. This may be due to a blockage in the bladder or urethra. ? Your bladder leaks pee. This may happen when the muscles or nerves near the bladder are not working normally, so the bladder overflows. Your health care provider will show you how to do the procedure. You will also be given the supplies you need to do the procedure. Supplies needed: ? Germ-free (sterile), water-based lubricant. ? A container for pee collection. You may also use the toilet to dispose of pee from the catheter. ? A catheter. Your provider will determine the best size for you. ? Use this catheter size: ? Clean gloves. ? Soap and water. ? Clean washcloth and towel. How to perform this procedure: Most people need CIC at least 4 times per day to completely empty the bladder. Your provider will tell you how often you should do CIC. ? Number of times per day to perform CIC: To perform CIC, follow these steps: 1. Wash your hands with soap and water for 20 seconds. If soap and water are not available, use hand frozen meat cutter. 2. Clean your penis with soap and water. Dry the tip of your penis completely. 3. Prepare the supplies that you will use during the procedure. Open the catheter package and lubricant. 4. Get in a comfortable position. Possible positions include: ? Sitting on a toilet, a chair, or the edge of a bed. ? Standing near a toilet. ? Lying down with your head raised on pillows and your knees pointing to the ceiling. You may wish to place a waterproof mat or pad under you. 5. If you are using a pee collection container, position it between your legs. 6. Pee, if you are able. 7. Put on gloves. 8. Apply lubricant to about 2 inches (5 cm) of the tip of the catheter. 9. Set the catheter down on a clean, dry surface within reach. 10. Gently stretch your penis out from your body. Pull back any skin that covers the end of your penis (foreskin). Clean the end of your penis with sterile swabs as told by your provider. 11. Hold your penis upward at a 45?60 degree angle. This helps to straighten the urethra. 12. Slowly insert the lubricated catheter straight into your urethra until pee flows freely. This is usually about 6?8 inches (15?20 cm). 13. When pee starts to flow freely, insert the catheter 1 inch (3 cm) more. Allow pee to drain into the toilet or the pee collection container. 14. When pee stops flowing, slowly remove the catheter. 15. Note the color, amount, and odor of the pee. 16. Measure your pee and note the amount, if told by your provider. 17. Discard the pee in the toilet. 18. Clean your penis using soap and water. 19. Move the foreskin back in place, if applicable. 20. If you are using a single-use catheter, discard the catheter and supplies. 21. Wash your hands with soap and water. 22. If you are using a reusable catheter, follow package instructions about how to clean the catheter after each use. How often should I do this procedure? ? Do CIC to empty your bladder every 4?6 hours or as often as told by your provider. ? If you have symptoms of too much pee in your bladder (overdistension) and you are not able to pee, perform CIC. Symptoms of overdistension may include: ? Restlessness. ? Sweating or chills. ? Headache. ? Flushed or pale skin. ? Bloated lower abdomen. What are the risks? The provider will talk with you about the risks. These may include: ? Infection. ? Injury to the urethra. ? Irritation of the urethra. Follow these instructions at home General instructions ? Drink enough fluid to keep your pee pale yellow. ? Throw away a catheter when it becomes dry, brittle, or cloudy. This usually happens after you use the catheter for 1 week. ? Avoid caffeine. Caffeine may make you need to pee more frequently and more urgently. ? When traveling, bring extra supplies with you in case of delays. Keep supplies with you in a place that you can access easily. If traveling by plane: ? Make sure that the lubricant in your carry-on bag is less than 3.4 ounces (100 mL). ? Use a single-use catheter. It may be difficult to clean a reusable catheter in a small bathroom. ? Take jcow-fqf-dtchfag and prescription medicines only as told by your provider. Contact a health care provider if: ? You have difficulty doing CIC. ? You have pee leaking around the catheter (more content not included)... [facility] 07-31-2024 Hospital Discharge instructions Patient Education 07/31/2024 [...] Follow these instructions at home: Medicines Take gggf-nym-zolybsl and prescription medicines only as told by [...] to keep your urine pale yellow. Take yshe-clo-sxwssjk or prescription medicines. Eat foods that are [...] provider. Document Revised: 08/07/2022 Document Reviewed: 08/07/2022 Coub Patient Education 2023 [employer]. Follow Up Care 05/25/2024 11:59:23 With:JENN GUERIN, Shahab Carrasquillo, ALYSSA Address: [facility] [address] [place] [address] [phone] When: Unknown [facility] 07-31-2024 Note Patient Education Urology Transurethral Resection [...] these instructions at home: Medicines ? Take dbpl-oec-gzirgka and prescription medicines only as told by [...] keep your urine pale yellow. ? Take jlbl-qqt-nzfdvex or prescription medicines. ? Eat foods that [...] provider. Document Revised: 08/07/2022 Document Reviewed: 08/07/2022 [employer] Patient Education ? 2023 [employer] [facility] 04-27-2024 Note Procedure [facility] poss PCI via right radial for preop [...] Plan: Patient agrees to IV sedation plan [facility] Comment on above: Result Comment: Elec tronically Signed By: Mica GUERIN, Aditya Orta\.br\Date and Time Signed: 04/27/24 12:02 EDT 04-21-2024 Note [id number]#[id number] [facility] 04-17-2024 Hospital Discharge instructions Patient Education 04/17/2024 07:44:44 Cardiovascular Discharge Instructions - Revised 11/16/15 (CUSTOM) [place], [place] DISCHARGE INSTRUCTIONS Diet: Resume pre-procedure diet. [...] hours post procedure: Actoplus MetGlucophageGlucophage XR GlucovanceAvandametFortamet Qbi-rnwszkzctIwleiaBdml-zpfmcntxk GlumetzaJanumetMetaglip RiometGlycomet *Minimal pain, soreness and/or discomfort [...] you are interested in smoking cessation, contact [facility] at [phone], ext. [phone]. In the event you are unable to reach your physician, please call [facility] at [phone] and the grapple skidder operator will assist you. Discharging Nurse Physician Date/Time Patient or Responsible [employer] Revised 07-02, 03-03, 12-07, 11-08 Follow Up Care 04/08/2024 10:03:08 With:Paul Barbosa Address: [address] [place] [address] [phone] Business (1) When:05/20/2024 09:45:00 [facility] 04-14-2024 Hospital Discharge instructions Patient Education [...] urethra. Follow these instructions at home: Take tqbs-rnk-xjisato and prescription medicines only as told by [...] provider. Document Revised: 05/30/2022 Document Reviewed: 05/30/2022 Coub Patient Education 2022 [employer]. 04/14/2024 13:24:15 Urinary Incontinence Urinary Incontinence Urinary [...] nerve stimulation). ?For women, using a medical cost consultant to prevent urine leaks. This is a [...] right after experiencing incontinence. General instructions Take msff-kpx-gdjujsp and prescription medicines only as told by [...] important. Where to find more information [employer] [place] [employer] and [employer]estive [employer] Kidney Diseases: www.niddk.nih.gov [employer] [place]: www.urologyhealth.org Contact a health care [...] provider. Document Revised: 06/16/2021 Document Reviewed: 06/16/2021 Coub Patient Education 2022 [employer]. 04/14/2024 13:24:11 Acute Urinary Retention, Male Acute [...] Follow these instructions at home: Medicines Take ahru-hej-iziwwxd and prescription medicines only as told by [...] provider. Document Revised: 08/02/2021 Document Reviewed: 08/02/2021 Coub Patient Education 2022 [employer]. Follow Up Care 03/10/2024 12:55:54 With:ELEAZAR Luis APRN, Rae Schmidt, DARIUS, URL Address: When: Unknown Comments:or another BELA for cath change, 4 wks [facility] 04-14-2024 Hospital Discharge instructions Follow Up Care 04/14/2024 13:09:53 With:ESPERANZA LIVE PA-C, URL Address: [address] [place] [address] [phone] When: Unknown [facility] 12-24-2023 Note Echocardiology Procedure Exam Date/Time Accession # Ordering Echo Transthoracic 12/19/2023 08:56 EST [id number] Cortez Degroot MD Complete CPT code 33020 78903 Reason for Exam (Echo Transthoracic Complete) Shortness of breath (SOB);Z76.89 Report Version: 1 Study ID: [id number] Adult Echocardiogram Report Name: EUGENIA GIL Study Date: 12/19/2023, 8: 13 AM Patient Location: [facility] : 1950 (MM/DD/YYYY) Gender: Male Age: [...] Signed by: Aditya Nino MD Transcribed by: [facility] Technologist: OSMAR [facility] 10-08-2023 Hospital Discharge instructions Patient Education 10/08/2023 [...] including vitamins, herbs, eye drops, creams, and jvny-crx-wfinyeg medicines. Any problems you or family members [...] provider tells you to take them. Taking iout-wed-bnxjxix medicines, vitamins, herbs, and supplements. Surgery safety [...] provider. Document Revised: 08/07/2022 Document Reviewed: 08/07/2022 Coub Patient Education 2022 [employer]. Follow Up Care 08/12/2023 13:22:25 With:JENN GUERIN, Shahab Carrasquillo, URL Address: [address] [place] [phone] When: Unknown [facility] 09-03-2023 Note [id number]#1.00TIFF [facility] 08-12-2023 Evaluation note Encounter Date Diagnosis Assessment [...] no improvement in 2 to 3 days 18 Sep, 2023 Cellulitis of arm, right (ICD-10 - L03.113) Cellulitis: adult home care material was printed Jul, Other Contact dermatitis home care material was printed [employer] Other 09-11-2023 Hospital Discharge instructions Patient Education [...] including vitamins, herbs, eye drops, creams, and kapw-nhu-kbkxslq medicines. ?Whether you are or may be [...] provider. Document Revised: 07/25/2022 Document Reviewed: 06/16/2021 Coub Patient Education 2022 [employer] 08/05/2023 13:14:39 Cystoscopy Cystoscopy Cystoscopy is [...] including vitamins, herbs, eye drops, creams, and szgo-alh-rlqvvsu medicines. Any problems you or family members [...] provider tells you to take them. Taking xcgb-zfy-rhkgjef medicines, vitamins, herbs, and supplements. Tests You [...] Follow these instructions at home: Medicines Take udao-qnz-lwraezs and prescription medicines only as told by [...] provider. Document Revised: 07/25/2022 Document Reviewed: 06/23/2021 Coub Patient Education 2022 [employer]. 08/05/2023 13:14:16 Acute Urinary Retention, Male Acute [...] Follow these instructions at home: Medicines Take jgyj-lqw-xtkpveb and prescription medicines only as told by [...] provider. Document Revised: 08/02/2021 Document Reviewed: 08/02/2021 Coub Patient Education 2022 [employer]. Follow Up Care 07/11/2023 10:33:42 With:JENN GUERIN, Shahab Carrasquillo, URL Address: [facility] [address] [place] [address]- [phone] When: Unknown Comments:sched Cysto/UDS [facility] 01-25-2020 Evaluation + Plan note Future Appointments Appointment Date:12/19/2023 08:00:00 AM Scheduled Provider: Location:[facility] Appointment Type:CV Echo (FT) Appointment Date:12/19/2023 09:00:00 AM Scheduled Provider: Location:[facility] Appointment Type:NM Myocard Spect Multi Rest/Stress-Res Appointment Date:12/19/2023 10:00:00 AM Scheduled Provider: Location:[facility] Appointment Type:NM Myocard Spect Multi Rest/Stress - R Appointment Date:12/20/2023 02:30:00 PM Scheduled Provider: Location:[facility] Appointment Type:NM Myocard Spect MultiRest/Stress-Stre Appointment Date:12/20/2023 03:30:00 PM Scheduled Provider: [facility] MED Appointment Type:NM Myocard Spect Multi Rest/Stress - S Appointment Date:12/30/2023 03:00:00 PM Scheduled Provider:Cortez Degroot MD Location:[facility] Appointment Type:FM Open Appointment Date:01/06/2024 11:00:00 AM Scheduled Provider: Location:[facility] Appointment Type:URO Nurse Visit Appointment Date:03/13/2024 01:15:00 PM Scheduled Provider:Adity[facility] Nino [facility] Type:Cardiology Follow Up (FT) Future Scheduled Tests Radiology* Echo Transthoracic Complete 12/19/23 * NM Myocardial Spect Rest/Stress 2 Day 12/19/23 * NM Myocardial Spect Part 2 11/28/23 * XR Chest 2 [facility] Future App[facility]ments Appointment Date:08/12/2023 01:00:00 PM Scheduled Provider: Location:[facility] Appointment Type:URO Nurse Visit Appointment Date:08/30/2023 08:15:00 AM Scheduled Provider: Location:[facility] Appointment Type:Urology CALL PAT FT Appointment Date:09/03/2023 03:00:00 PM Scheduled Provider: Location:[facility] Appointment Type:Urology FT Appointment Date:09/03/2023 03:45:00 PM Scheduled Provider: Location:[facility] Appointment Type:Urology FT Diagnostic Tests Pending * PSA Screen, Total 08/05/23 [facility] evaluation + Plan note Future Appointments Appointment Date:08/30/2023 08:15:00 AM Scheduled Provider: Location:[facility] Appointment Type:Urology CALL PAT FT Appointment Date:09/03/2023 03:00:00 PM Scheduled Provider: Location:[facility] Appointment Type:Urology FT Appointment Date:09/03/2023 03:45:00 PM Scheduled Provider: Location:[facility] Appointment Type:Urology FT Appointment Date:10/07/2023 01:00:00 PM Scheduled Provider: Location:[facility] Appointment Type:URO Nurse Visit [facility] evaluation + Plan note Future Appointments Appointment Date:12/20/2023 11:00:00 AM Scheduled Provider:Shahab PATTON MD Location:[facility] Appointment Type:URO Office Visit [facility] evaluation + Plan note Future Appointments Appointment Date:12/09/2023 10:00:00 AM Scheduled Provider: Location:[facility] Appointment Type:URO Nurse Visit Appointment Date:12/13/2023 10:15:00 AM Scheduled Provider:Aditya Nino MD [facility] Type:Cardiology New Patient (FT) Appointment Date:12/19/2023 08:00:00 AM Scheduled Provider: [facility] Type:CV Echo (FT) Appointment Date:12/19/2023 09:00:00 AM Scheduled Provider: Location[facility] Appointment Type:NM Myocard Spect Multi Rest/Stress-Res Appointment Date:12/19/2023 10:00:00 AM Scheduled Provider: [facility] App[facility] Type:NM Myocard Spect Multi Rest/Stress - R Appointment Date:12/20/2023 02:30:00 PM Scheduled Provider: [facility] Appointment Type:NM Myocard Spect MultiRest/Stress-Stre Appointment Date:12/20/2023 03:30:00 PM Scheduled Provider: [facility] Appoint[facility] Type:NM Myocard Spect Multi Rest/Stress - S Appointment Date:12/30/2023 03:00:00 PM Scheduled Provider:Cortez Degroot MD Location:[facility] Appointment Type: Open Future Scheduled Tests Radiology* Echo Transthoracic Complete 12/19/23 * NM Myocardial Spect Rest/Stress 2 Day 12/19/23 * NM Myocardial Spect Part 2 11/28/23 * XR Chest 2 Views 11/28/23 [facility] Evaluation + Plan note Future Appointments Appointment Date:12/13/2023 10:15:00 AM Scheduled Provider:Aditya Nino MD [facility] Type:Cardiology New Patient (FT) Appointment Date:12/19/2023 08:00:00 AM Scheduled Provider: [facility] Appoint[facility] Type:CV Echo (FT) Appointment Date:12/19/2023 09:00:00 AM Scheduled Provider: [facility] App[facility] Type:NM Myocard Spect Multi Rest/Stress-Res Appointment Date:12/19/2023 10:00:00 AM Scheduled Provider: [facility] Appointment Type:NM Myocard Spect Multi Rest/Stress - R Appointment Date:12/20/2023 02:30:00 PM Scheduled Provider: [facility] Appointment Type:NM Myocard Spect MultiRest/Stress-Stre Appointment Date:12/20/2023 03:30:00 PM Scheduled Provider: [facility] Appointment Type:NM Myocard Spect Multi Rest/Stress - S Appointment Date:12/30/2023 03:00:00 PM Scheduled Provider:[facility] Open Appointment Date:01/06/2024 11:00:00 AM Scheduled Provider: Location:[facility] Appointment Type:URO Nurse Visit Future Scheduled Tests Radiology* Echo Transthoracic Complete 12/19/23 * NM Myocardial Spect Rest/Stress 2 Day 12/19/23 * NM Myocardial Spect Part 2 11/28/23 * XR Chest 2 Views 11/28/23 [facility] evaluation + Plan note Future Appointments Appointment Date:01/16/2024 08:00:00 AM Scheduled Provider: [facility] Type:CV Echo Stress (FT) Appointment Date:02/03/2024 11:30:00 AM Scheduled Provider: Location:[facility] Appointment Type:URO Nurse Visit Appointment Date:03/09/2024 01:15:00 PM Scheduled Provider:Cortez Degroot MD Location:[facility] Appointment Type: Open Appointment Date:03/13/2024 01:15:00 PM Scheduled Provider:Aditya Nino MD [facility] Type:Cardiology Follow Up (FT) Future Scheduled Tests Radiology* EC Stress Echo Complete w/ Contrast 01/16/24 * NM Myocardial Spect Part 2 11/28/23 * XR Chest 2 Views 11/28/23 [facility] evaluation + Plan note Future Appointments Appointment Date:02/11/2024 01:00:00 PM Scheduled Provider: Location:[facility] Appointment Type:URO Nurse Visit Appointment Date:03/09/2024 01:15:00 PM Scheduled Provider:Cortez Degroot MD Location:[facility] Appointment Type: Open Appointment Date:03/13/2024 01:15:00 PM Scheduled Provider:Aditya Nino MD [facility] Appointment Type:Cardiology Follow Up (FT) Future Scheduled Tests Radiology* NM Myocardial Spect Part 2 11/28/23 * XR Chest 2 Views 11/28/23 [facility] Future App[facility]ments Appointment Date:03/09/2024 01:15:00 PM Scheduled Provider:Cortez Degroot MD Location:[facility] Appointment Type:FM Open Appointment Date:03/10/2024 01:00:00 PM Scheduled Provider: Location:[facility] Appointment Type:URO Nurse Visit Appointment Date:03/13/2024 01:15:00 PM Scheduled Provider:Aditya Nino MD [facility] Appointment Type:Cardiology Follow Up (FT) Future Scheduled Tests Radiology* NM Myocardial Spect Part 2 11/28/23 * XR Chest 2 Views 11/28/23 [facility] evaluation + Plan note Future Appointments Appointment Date:04/03/2024 01:45:00 PM Scheduled Provider:Rodolfo Alex MD [facility] Appointment Type:Cardiology Follow Up (FT) Appointment Date:04/14/2024 01:00:00 PM Scheduled Provider: Location:[facility] Appointment Type:URO Nurse Visit Appointment Date:05/11/2024 01:00:00 PM Scheduled Provider: Location:[facility] Appointment Type: Medicare Wellness Subsequent Appointment Date:05/11/2024 02:00:00 PM Scheduled Provider:Cortez Degroot MD Location:[facility] Appointment Type:FM Open Future Scheduled Tests Radiology* NM Myocardial Spect Part 2 11/28/23 * XR Chest 2 Views 11/28/23 [facility] evaluation + Plan note Future Appointments Appointment Date:04/14/2024 01:00:00 PM Scheduled Provider: Location:[facility] Appointment Type:URO Nurse Visit Appointment Date:05/11/2024 01:00:00 PM Scheduled Provider: Location:[facility] Appointment Type: Medicare Wellness Subsequent Appointment Date:05/11/2024 02:00:00 PM Scheduled Provider:Cortez Degroot MD Location:[facility] Appointment Type:FM Open Future Scheduled Tests Radiology* CV Cardiovascular 04/08/24 * NM Myocardial Spect Part 2 11/28/23 * XR Chest 2 Views 11/28/23 [facility] Future App[facility]ments Appointment Date:04/17/2024 09:00:00 AM Scheduled Provider: [facility] Type:CV Heart Cath (FT) Appointment Date:05/11/2024 01:00:00 PM Scheduled Provider: Location:[facility] Appointment Type: Medicare Wellness Subsequent Appointment Date:05/11/2024 02:00:00 PM Scheduled Provider:Cortez Degroot MD Location:[facility] Appointment Type: Open Appointment Date:05/12/2024 01:00:00 PM Scheduled Provider: Location:[facility] Appointment Type:URO Nurse Visit Future Scheduled Tests Radiology* CV Cardiovascular 04/17/24 * NM Myocardial Spect Part 2 11/28/23 * XR Chest 2 Views 11/28/23 [facility] evaluation + Plan note Future Appointments Appointment Date:05/11/2024 01:00:00 PM Scheduled Provider: Location:[facility] Appointment Type: Medicare Wellness Subsequent Appointment Date:05/11/2024 02:00:00 PM Scheduled Provider:Cortez Degroot MD Location:[facility] Appointment Type: Open Appointment Date:05/12/2024 01:00:00 PM Scheduled Provider: Location:[facility] Appointment Type:URO Nurse Visit Appointment Date:05/20/2024 09:45:00 AM Scheduled Provider:Paul Barbosa PA-C [facility] Type:Cardiology Follow Up (FT) Future Scheduled Tests Radiology* NM Myocardial Spect Part 2 11/28/23 * XR Chest 2 Views 11/28/23 [facility] Future App[facility]ments Appointment Date:05/20/2024 09:45:00 AM Scheduled Provider:Paul Barbosa PA-C [facility] Type:Cardiology Follow Up (FT) Appointment Date:06/09/2024 12:30:00 PM Scheduled Provider:ELEAZAR Luis APRN, [place] Location:[facility] Appointment Type:URO Office Visit Appointment Date:07/13/2024 01:15:00 PM Scheduled Provider:Cortez Degroot MD Location:[facility] Appointment Type:FM Open Appointment Date:05/10/2025 02:30:00 PM Scheduled Provider: Location:[facility] Appointment Type: Medicare Wellness Subsequent Future Scheduled Tests Radiology* NM Myocardial Spect Part 2 11/28/23 * XR Chest 2 Views 11/28/23 [facility] evaluation + Plan note Future Appointments Appointment Date:06/09/2024 12:30:00 PM Scheduled Provider:ELEAZAR Luis APRN, [place] Location:[facility] Appointment Type:URO Office Visit Appointment Date:07/13/2024 01:15:00 PM Scheduled Provider:Cortez Degroot MD Location:[facility] Appointment Type:FM Open Appointment Date:05/10/2025 02:30:00 PM Scheduled Provider: Location:[facility] Appointment Type: Medicare Wellness Subsequent Future Scheduled Tests Radiology* NM Myocardial Spect Part 2 11/28/23 * XR Chest 2 Views 11/28/23 [facility] Future Appointments Appointment Date:07/06/2024 10:00:00 AM Scheduled Provider: Location:[facility] Appointment Type:URO Nurse Visit Appointment Date:07/13/2024 01:15:00 PM Scheduled Provider:Cortez Degroot MD Location:[facility] Appointment Type: Open Appointment Date:07/31/2024 10:45:00 AM Scheduled Provider:Shahab PATTON MD Location:[facility] Appointment Type:URO Office Visit Appointment Date:05/10/2025 02:30:00 PM Scheduled Provider: Location:[facility] Appointment Type: Medicare Wellness Subsequent Future Scheduled Tests Radiology* NM Myocardial Spect Part 2 11/28/23 * XR Chest 2 Views 11/28/23 [facility] evaluation + Plan note Future Appointments Appointment Date:07/13/2024 01:15:00 PM Scheduled Provider:[facility]: [facility] Appointment Date:07/31/2024 10:45:00 AM Scheduled Provider:[facility]ab [facility] Office Visit Appointment Date:05/10/2025 02:30:00 PM Scheduled Provider: Location:[facility] Appointment Type:FM Medicare Wellness Subsequent Future Scheduled Tests Radiology* NM Myocardial Spect Part 2 11/28/23 * XR Chest 2 Views 11/28/23 [facility] evaluation + Plan note Future Appointments Appointment Date:08/24/2024 01:00:00 PM Scheduled Provider:Cortez Degroot MD Location:[facility] Appointment Type: Open Appointment Date:08/31/2024 12:15:00 PM Scheduled Provider:Shahab PATTON MD Location:[facility] Appointment Type:URO Office Visit Appointment Date:05/10/2025 02:30:00 PM Scheduled Provider: Location:[facility] Appointment Type: Medicare Wellness Subsequent Future Scheduled Tests Radiology* NM Myocardial Spect Part 2 11/28/23 * XR Chest 2 Views 11/28/23 [facility] evaluation + Plan note Future Appointments Appointment Date:09/07/2024 01:00:00 PM Scheduled Provider:Cortez Degroot MD Location:[facility] Appointment Type: Open Appointment Date:11/02/2024 01:30:00 PM Scheduled Provider:Shahab PATTON MD Location:[facility] Appointment Type:URO Office Visit Appointment Date:05/10/2025 02:30:00 PM Scheduled Provider: Location:[facility] Appointment Type: Medicare Wellness Subsequent Future Scheduled Tests Radiology* NM Myocardial Spect Part 2 11/28/23 * XR Chest 2 Views 11/28/23 [facility] evaluation + Plan note Future Appointments Appointment Date:11/09/2024 01:15:00 PM Scheduled Provider:[facility]ez Degroot [facility]: Open Appointment Date:12/28/2024 12:45:00 PM Scheduled Provider:Shahab PATTON MD [facility] Type:URO Office Visit Appointment Date:05/10/2025 02:30:00 PM Scheduled Provider: Location:[facility] Appointment Type: Medicare Wellness Subsequent Future Scheduled Tests Radiology* NM Myocardial Spect Part 2 11/28/23 * XR Chest 2 Views 11/28/23 [facility] evaluation noteNo assessment information available [facility] Work Phone: History general Narrative - Reported* Type Description Date Medical History benign prostatic hypertrophy Medical History DVT Surgical History tonsillectomy Surgical History I & D abscess Hospitalization History See Above [facility] Other Hospital course Narrative No data available for this section [facility] Hospital Discharge instructions No data available for this section [facility] progress note No data available for this section [facility] Summary Purpose Family History No Family History [...] and content) DATE CREATED AUTHOR 05/03/2023 [facility] DATE CREATED AUTHOR AUTHOR'S ORGANIZ ATION 05/14/2024 [facility] DATE CREATED AUTHOR AUTHOR'S ORGANIZ ATION 07/10/2024 [facility] DATE CREATED AUTHOR AUTHOR'S ORGANIZ ATION 11/11/2024 [facility] Patient Care team informatio n (unrecognized section and content) Team Status: Inactive Member Role Status Dates Shahab Patton MD Attending Provider Active St art: July [...] BE BASED ON THE PRIMARY CLINICAL RECORDS. [facility] [employer] [facility]. provides no warranty or guarantee of the accuracy or completeness of information in this document.
[2024-11-12 08:31] LABS: Hemoglobin 14.1 g/dL (14.0-18.0)
--- NOTE | 2024-11-12 09:22 | RT_ITS ---
[facility] Test Date: 2024-11-12 Pat Name: EUGENIA WOODSON Department: Room: - Gender: Male Hookman: Laly Funez RRT : 1950 Requested By: Cecilio Saldivar Order Number: [id number] Reading MD: Cecilio Saldivar Interpretive Statements Pulmonary function testing was completed according to ATS criteria. Findings were considered accurate and reproducible. Both pre- and post-bronchodilator values utilized for spirometry. Spirometry (based on pre-bronchodilator values): -FEV1/FVC: Low normal @ 73% -FEV1: Moderately reduced @ 74% -FVC: Reduced @ 74% -There is no significant bronchodilator response. Lung volumes by plethysmography: -RV: Normal @ 103% -TLC: Normal @ 108% Diffusion capacity: -DLCO: Mild reduction @ 70% when corrected for Hb 14.1g/dL Impressions: -Spirometry trends towards a moderate obstruction pattern. Normal lung volumes and mildly reduced diffusion capacity. 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 Clinical correlation required. Electronically Signed On 11-16-2024 7:52:20 EST by Cecilio Saldivar
[2024-11-12 09:23] LABS: ABG PCO2 42.4 mmHg (35.0-45.0); pH ABG 7.414 (7.350-7.450)
[2024-11-12 09:24] LABS: Allen Test POSITIVE (POSITIVE); Base Excess ABG 2.5 mmol/L (-2.0-2.0); HCO3 ABG 27.1 mmol/L (22.0-26.0); O2 Mode ROOM AIR; Oxygen Saturation ABG 88.1 %; PO2 ABG 53.1 mmHg (80.0-100.0); Puncture Site L RADIAL
[2024-11-12] MEDS: ALBUTEROL SULFATE 2.5 MG/3 ML VIAL NEB IH (10:32)
--- NOTE | 2024-11-16 07:56 | W.PM.PROCNOT ---
Procedure: 6 Minute Walk Date: 11/12/2024 Indication: Dyspnea MMRC: 4 ABG ABG done earlier this same date resulted in a pO2 53 and SaO2 88% on room air. 6MW testing was therefore performed on supplemental O2, beginning @ 2L/min at rest. Resting data: -BP: 168/83 -HR: 86 -SpO2: 92 -FiO2: 2L/min Description: 6 minute walk was initiated according to standard protocol, starting at 2L/min. Patient desaturated to 87% on 2L/min and was titrated to 3L/min and was able to remain at this flow for the remainder of the walk, maintaining SpO2 >88%. Maximum Aleksandr reported was 4. Recovery data: -BP: 149/90 -HR: 110 -SpO2: 93% -FiO2: 3L/min -Aleksandr: 3 Ambulation: Patient ambulated a total of 145m which is 24% predicted. There were 2 stops reported due to dyspnea. Impressions: Resting and ambulatory desaturations, recovered with addition of supplemental O2. Decreased walk distance. Recommendations: Patient qualifies for supplemental O2 @ 2L/min at rest and @ 3L/min with activity/ambulation. Clinical correlation required.
== END 2024-11-12 07:58 | disposition home or self-care (01) ==
LOC: CT 07:57
PROVIDERS: PCP Family Medicine; Visit Provider Internal Medicine
DX: F44.9 Dissociative and conversion disorder, unspecified (principal); Z87.891 Personal history of nicotine dependence; Z12.2 Encounter for screening for malignant neoplasm of respiratory organs; I31.39 Other pericardial effusion (noninflammatory)
CPT/HCPCS: 36415; 36600; 71271; 82805; 85018; 94060; 94618; 94726; 94729

== ENCOUNTER 2024-11-26 00:39 | Outpatient (RCR) | payer MEDICARE, SELFPAY | END 2024-12-25 14:51 | disposition home or self-care (01) | LOC: MM 00:39 | PROVIDERS: PCP Family Medicine; Visit Provider Internal Medicine | DX: Z51.81 Encounter for therapeutic drug level monitoring (principal); Z79.01 Long term (current) use of anticoagulants | CPT/HCPCS: 85610; G0463 ==

== ENCOUNTER 2024-12-28 00:45 | Outpatient (RCR) | payer MEDICARE, SELFPAY | END 2025-01-22 11:09 | disposition home or self-care (01) | LOC: MM 00:45 | PROVIDERS: PCP Family Medicine; Visit Provider Internal Medicine | DX: Z51.81 Encounter for therapeutic drug level monitoring (principal); Z79.01 Long term (current) use of anticoagulants ==

== ENCOUNTER 2025-01-23 09:46 | Outpatient (RCR) | payer MEDICARE, SELFPAY | END 2025-02-19 10:19 | disposition home or self-care (01) | LOC: MM 09:46 | PROVIDERS: PCP Family Medicine; Visit Provider Internal Medicine | DX: Z51.81 Encounter for therapeutic drug level monitoring (principal); Z79.01 Long term (current) use of anticoagulants ==

== ENCOUNTER 2025-02-23 05:30 | Outpatient (RCR) | payer MEDICARE, SELFPAY | END 2025-03-24 15:52 | disposition home or self-care (01) | LOC: MM 05:30 | PROVIDERS: PCP Family Medicine; Visit Provider Internal Medicine | DX: Z51.81 Encounter for therapeutic drug level monitoring (principal); Z79.01 Long term (current) use of anticoagulants | CPT/HCPCS: 85610; G0463 ==

== ENCOUNTER 2025-03-25 04:50 | Outpatient (RCR) | payer MEDICARE, SELFPAY | END 2025-04-23 15:20 | disposition home or self-care (01) | LOC: MM 04:50 | PROVIDERS: PCP Family Medicine; Visit Provider Internal Medicine | DX: Z51.81 Encounter for therapeutic drug level monitoring (principal); Z79.01 Long term (current) use of anticoagulants | CPT/HCPCS: 85610; G0463 ==

== ENCOUNTER 2025-04-25 07:23 | Outpatient (RCR) | payer MEDICARE, SELFPAY | END 2025-05-20 14:26 | disposition home or self-care (01) | LOC: MM 07:23 | PROVIDERS: PCP Family Medicine; Visit Provider Internal Medicine | DX: Z51.81 Encounter for therapeutic drug level monitoring (principal); Z79.01 Long term (current) use of anticoagulants | CPT/HCPCS: 85610; G0463 ==

== ENCOUNTER 2025-05-25 02:43 | Outpatient (RCR) | payer MEDICARE, SELFPAY | END 2025-06-24 16:47 | disposition home or self-care (01) | LOC: MM 02:43 | PROVIDERS: PCP Family Medicine; Visit Provider Internal Medicine | DX: Z51.81 Encounter for therapeutic drug level monitoring (principal); Z79.01 Long term (current) use of anticoagulants ==

== ENCOUNTER 2025-06-25 01:18 | Outpatient (RCR) | payer MEDICARE, SELFPAY | END 2025-07-22 12:42 | disposition home or self-care (01) | LOC: MM 01:18 | PROVIDERS: PCP Family Medicine; Visit Provider Internal Medicine | DX: Z51.81 Encounter for therapeutic drug level monitoring (principal); Z79.01 Long term (current) use of anticoagulants | CPT/HCPCS: 85610; G0463 ==

== ENCOUNTER 2025-07-26 01:12 | Outpatient (RCR) | payer MEDICARE, SELFPAY | END 2025-08-24 15:34 | disposition home or self-care (01) | LOC: MM 01:12 | PROVIDERS: PCP Family Medicine; Visit Provider Internal Medicine | DX: Z51.81 Encounter for therapeutic drug level monitoring (principal); Z79.01 Long term (current) use of anticoagulants | CPT/HCPCS: 85610; G0463 ==

== ENCOUNTER 2025-08-25 04:24 | Outpatient (RCR) | payer MEDICARE, SELFPAY | END 2025-09-24 23:59 | disposition home or self-care (01) | LOC: MM 04:24 | PROVIDERS: PCP Family Medicine; Visit Provider Internal Medicine | DX: Z51.81 Encounter for therapeutic drug level monitoring (principal); Z79.01 Long term (current) use of anticoagulants | CPT/HCPCS: 85610; G0463 ==

== ENCOUNTER 2025-09-25 | Outpatient (RCR) | payer MEDICARE, SELFPAY | END 2025-10-24 23:59 | disposition home or self-care (01) | LOC: MM | PROVIDERS: PCP Family Medicine; Visit Provider Internal Medicine | DX: Z51.81 Encounter for therapeutic drug level monitoring (principal); Z79.01 Long term (current) use of anticoagulants ==

== ENCOUNTER 2025-10-25 10:39 | Outpatient (RCR) | payer MEDICARE, SELFPAY | END 2025-11-24 12:43 | disposition home or self-care (01) | LOC: MM 10:39 | PROVIDERS: PCP Family Medicine; Visit Provider Internal Medicine | DX: Z51.81 Encounter for therapeutic drug level monitoring (principal); Z79.01 Long term (current) use of anticoagulants; I82.409 Acute embolism and thrombosis of unspecified deep veins of unspecified lower extremity | CPT/HCPCS: 85610; G0463 ==